=== PATIENT | female | born 1950 | race Caucasian/White ===

== ENCOUNTER 2022-08-21 10:26 | Outpatient (OUT) | payer MEDICARE, OTHER, SELFPAY ==
--- NOTE | 2022-08-21 10:30 | MM_ITS ---
Patient: SINA VALENCIA Exam Date: 08/21/2022 : 1950 Gender:F Ordering : DR. JEAN HAIR . Admission #: [id number] Family : Order #: [id number] CLICK HERE TO VIEW EXAM RADIOLOGY REPORT PROCEDURE: MM TOMOSYNTHESIS SCREENING BI COMPARISON: MG MAMM SCREEN 3D SONY CAD, 08/17/2020. MG MAMM SCREEN 3D SONY CAD, 08/19/2021. INDICATIONS: Screening mammogram Z12.31 Calculator Name NCI Breast Cancer Risk Assessment Tool 5 Year Breast Cancer Risk 1.90% Lifetime Breast Cancer Risk 5.40% Personal Breast Cancer No Personal Ovarian Cancer No Treatments None Family Cancers Father with pancreatic cancer at age 81; Grandmother-maternal with colon cancer at age 70. LOCATION: [facility] BREAST COMPOSITION: Heterogeneously dense,which may obscure small masses. FINDINGS: DIAGNOSTIC CATEGORY 2--BENIGN FINDING. NO CHANGE FROM COMPARISON. Scattered benign-appearing calcifications are present. Scattered benign-appearing lymph nodes are present. RIGHT BREAST: No significant suspicious finding. Clusters of stable calcifications upper outer quadrant LEFT BREAST: No significant suspicious finding. Stable scab microcalcifications upper outer quadrant with unchanged micro clip marker RECOMMENDATIONS: ROUTINE MAMMOGRAM AND CLINICAL EVALUATION IN 12 MONTHS. PLEASE NOTE: A NORMAL MAMMOGRAM DOES NOT EXCLUDE THE POSSIBILITY OF BREAST CANCER. A CLINICALLY SUSPICIOUS PALPABLE LUMP SHOULD BE BIOPSIED. Dictated by: Soto Perry MD on 08/21/2022 at 12:06 Approved by: Soto Perry MD on 08/21/2022 at 12:08
== END 2022-08-21 10:27 ==
LOC: MAMMO 10:27
PROVIDERS: PCP Family Medicine; Visit Provider Family Medicine
DX: Z12.31 Encounter for screening mammogram for malignant neoplasm of breast (principal); Z80.1 Family history of malignant neoplasm of trachea, bronchus and lung; Z80.0 Family history of malignant neoplasm of digestive organs
CPT/HCPCS: 77063; 77067

== ENCOUNTER 2022-11-13 11:55 | Outpatient (OUT) | payer MEDICARE, OTHER, SELFPAY ==
--- NOTE | 2022-11-13 13:08 | PM.CN ---
Consult Note: HPI Data of Consult Patient: new to practice Consult date: 11/13/22 Requesting Physician: Alice Ryan MD Primary Care Provider: JEAN HAIR Consult Narrative Reason for consult: low back pain Narrative: Rosi 72yof who presents for evaluation. Increasing axial low back pain that is worsened with ambulation. Previously underwent lumbar epidural steroid injections at outside pain clinic, which provided relief of radiating pain. Imaging reviewed, which is significant for multilevel moderate facet arthropathy. Engages in PT and completed >6 weeks of provider directed home exercise program, without much relief. Tried gabapentin and muscle relaxants, with limited relief. Denies loss of bowel or bladder control. cc:: CC: Alice Ryan MD Review of Systems ROS Status of ROS 10 or more systems reviewed and unremarkable except as noted in history and below Exam Constitutional Common normals: no apparent distress, oriented x3 and healthy appearing Respiratory Common normals: normal respiratory effort Effort & inspection: able to speak in complete sentences Back & Pelvis Other: Tenderness to palpation in low back and paraspinal musculature. Pain elicited with flexion, extension, lateral rotation. Facet loading maneuvers positive bilaterally. Coordination intact. Gait mildly antalgic. Extremity Common normals: normal to inspection Neuro Common normals: oriented x3, CN's II-XII intact bilaterally and no focal motor deficits Psych Common normals: mental status grossly normal and cooperative Assessment and Plan Assessment and Plan (1) Lumbar stenosis with neurogenic claudication: (2) Lumbar spondylosis: Plan Rosi 72yof who presents for evaluation. Failed >6 weeks of conservative management, as noted above. Imaging reviewed, as noted above. Given symptoms and imaging findings, prudent to attempt diagnostic bilateral L4-5, L5-S1 medial branch blocks under fluoroscopic guidance with intention of proceeding to radiofrequency ablation. She is in agreement. Medications reviewed, no changes. Follow up after procedure.
== END 2022-11-13 11:56 | disposition home or self-care (01) ==
LOC: PM 11:55
PROVIDERS: PCP Family Medicine; Visit Provider Anesthesiology
DX: M47.816 Spondylosis without myelopathy or radiculopathy, lumbar region (principal); M48.062 Spinal stenosis, lumbar region with neurogenic claudication
CPT/HCPCS: G0463

== ENCOUNTER 2022-11-27 08:39 | Day surgery (SDC) | payer MEDICARE, OTHER, SELFPAY ==
[2022-11-27 09:14] VITALS: BP 149/74; PULSE 69; RESP 18; TEMP 36.3; O2SAT 99
[2022-11-27] MEDS: LIDOCAINE HCL 2% PF 100 MG/5 ML VIAL INJ (10:15)
[2022-11-27] MEDS: BUPIVACAINE HCL 0.25% PF 25 MG/10 ML VIAL INJ (10:15)
[2022-11-27 10:16] VITALS: BP 138/84; PULSE 70; RESP 18; O2SAT 97
[2022-11-27] MEDS: TRIAMCINOLONE ACETONIDE 40 MG/ML VIAL INJ (10:16)
--- NOTE | 2022-11-27 10:17 | W.PM.PROCNOT ---
Date of procedure: 11/27/22 Pre-op diagnosis: Lumbar spondylosis Post-op diagnosis: same as pre-op Procedure: Procedure: Bilateral L4-5, L5-S1 medial branch block Diagnosis: Lumbar spondylosis The patient was seen and examined in the preoperative holding area.? An informed consent was obtained and placed on the chart.? The patient was brought to the medical procedure unit and placed in the prone position.? A timeout was completed verifying correct patient, procedure site, positioning, plan, and special equipment.? Using aseptic technique, the needle was placed at left L4. Under direct fluoroscopic visualization a Quincke-tipped spinal needle was advanced to the junction of the superior articulating process with the transverse process at the designated medial branch segment.? Preceded by negative aspiration, the above-mentioned injectate was placed in 1 mL aliquots.? The procedure was repeated at left L5, S1.? The needle was removed and insertion site was covered. The same procedure, at the same levels, was completed on the right side. The patient was taken to the postprocedural recovery area and monitored for an appropriate length of time before found suitable for discharge in the company of a responsible adult. Anesthesia: Local Surgeon: Alice Ryan Pathology: none sent Condition: stable Disposition: no change
[2022-11-27 10:18] VITALS: BP 212/94; PULSE 77; RESP 18; O2SAT 96
== END 2022-11-27 10:21 | disposition home or self-care (01) ==
PROVIDERS: PCP Family Medicine; Visit Provider Anesthesiology
DX: M47.816 Spondylosis without myelopathy or radiculopathy, lumbar region (principal)
CPT/HCPCS: 64493; 64494

== ENCOUNTER 2022-12-13 09:43 | Outpatient (OUT) | payer MEDICARE, OTHER, SELFPAY ==
--- NOTE | 2022-12-13 09:49 | P.CN_ITS ---
Consult Note: HPI Data of Consult Patient: known to practice within the last 3 years Requesting Physician: Marian Cornelius NP Primary Care Provider: JEAN HAIR Consult Narrative Reason for consult: f/u Narrative: Misty yeung pleasant 72 year old female presents for evaluation and management of chronic low back pain. Pt recently underwent bilateral L4-5 L5-S1 MBB #1 with >80% pain relief and functional improvement immediately following and hours after the procedure. Patient would like to discuss proceeding with bilateral L4-5 L5-S1 MBB #2 working towards thermal RFA. Today rating pain 2- 3/10, pain worse with standing walking activity and weather changes. cc:: CC: Marian Cornelius NP Review of Systems ROS Status of ROS 10 or more systems reviewed and unremarkable except as noted in history and below Musculoskeletal Reports: back pain PFSH PFS Medical History (Updated 11/23/22 @ 09:16 by Francia Carranza) Acid reflux ?K21.9 - Gastro-esophageal reflux disease without esophagitis (ICD-10) HAFSA positive ?R76.8 - Other specified abnormal immunological findings in serum (ICD-10) Asthma ?J45.909 - Unspecified asthma, uncomplicated (ICD-10) Basal cell carcinoma ?C44.91 - Basal cell carcinoma of skin, unspecified (ICD-10) Blindness ?H54.7 - Unspecified visual loss (ICD-10) Family history of alcohol abuse ?Z81.1 - Family history of alcohol abuse and dependence (ICD-10) Family history of drug abuse ?Z81.3 - Family history of other psychoactive substance abuse and dependence (ICD-10) Heartburn ?R12 - Heartburn (ICD-10) Hiatal hernia ?K44.9 - Diaphragmatic hernia without obstruction or gangrene (ICD-10) High cholesterol ?E78.00 - Pure hypercholesterolemia, unspecified (ICD-10) Hypertension ?I10 - Essential (primary) hypertension (ICD-10) Hypothyroid ?E03.9 - Hypothyroidism, unspecified (ICD-10) MGUS (monoclonal gammopathy of unknown significance) ?D47.2 - Monoclonal gammopathy (ICD-10) Obesity ?E66.9 - Obesity, unspecified (ICD-10) Osteoarthritis ?M19.90 - Unspecified osteoarthritis, unspecified site (ICD-10) Osteopenia ?M85.80 - Other specified disorders of bone density and structure, unspecified site (ICD-10) 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 and other parts of nervous system (ICD-10) Renal insufficiency ?N28.9 - Disorder of kidney and ureter, unspecified (ICD-10) Sjogren's disease ?M35.00 - Sjogren syndrome, unspecified (ICD-10) SVT (supraventricular tachycardia) ?I47.1 - Supraventricular tachycardia (ICD-10) Syncopal episodes ?R55 - Syncope and collapse (ICD-10) Surgical History H/O breast biopsy ?Z98.890 - Other specified postprocedural states (ICD-10) H/O parathyroidectomy ?E89.2 - Postprocedural hypoparathyroidism (ICD-10) H/O prior ablation treatment ?Z98.890 - Other specified postprocedural states (ICD-10) H/O thumb surgery ?Z98.890 - Other specified postprocedural states (ICD-10) H/O thyroidectomy ?E89.0 - Postprocedural hypothyroidism (ICD-10) H/O wrist surgery ?Z98.890 - Other specified postprocedural states (ICD-10) H/O wrist surgery ?Z98.890 - Other specified postprocedural states (ICD-10) History of hysterectomy ?Z90.710 - Acquired absence of both cervix and uterus (ICD-10) History of phacoemulsification of cataract of left eye with intraocular lens implantation ?Z98.42 - Cataract extraction status, left eye (ICD-10) ?Z96.1 - Presence of intraocular lens (ICD-10) Meds Home Medications and Allergies Home Medications Medication Instructions Recorded Confirmed Type acetaminophen 650 mg 650 mg PO Q12H PRN pain 11/23/22 11/27/22 History tablet,extended release (8 Hour Pain Reliever) atorvastatin 10 mg tablet 10 mg PO QDAY 11/23/22 11/27/22 History cholecalciferol (vitamin D3) 50 11/23/22 History mcg (2,000 unit) capsule fluocinonide 0.05 % topical cream applic topical 11/23/22 History furosemide 20 mg tablet 20 mg PO QDAY 11/23/22 11/27/22 History hydroxychloroquine 200 mg tablet mg PO 11/23/22 History ibandronate 150 mg tablet mg PO 11/23/22 History ketoconazole 2 % topical cream applic topical 11/23/22 History levothyroxine 50 mcg tablet 50 mcg PO QDAY 11/23/22 11/27/22 History lisinopril 10 mg tablet 10 mg PO QDAY 11/23/22 11/27/22 History metronidazole 0.75 % topical cream applic topical 11/23/22 History naproxen sodium 220 mg capsule 220 mg PO BID PRN pain 11/23/22 11/27/22 History (Aleve) potassium chloride 10 mEq 10 meq PO QDAY 11/23/22 11/27/22 History tablet,extended release Allergies Allergy/AdvReac Type Severity Reaction Status Date / Time acetaminophen [From Percocet] Allergy Mild Verified 11/27/22 09:12 gabapentin Allergy Mild Verified 11/27/22 09:12 meperidine [From Demerol] Allergy Mild Nausea Verified 11/27/22 09:12 morphine Allergy Mild Verified 11/27/22 09:12 oxycodone [From Percocet] Allergy Mild Verified 11/27/22 09:12 Sulfa (Sulfonamide Allergy Mild Hives Verified 11/27/22 09:12 Antibiotics) sulfamethoxazole Allergy Mild Verified 11/27/22 09:12 [From Bactrim] trimethoprim [From Bactrim] Allergy Mild Verified 11/27/22 09:12 Exam Constitutional Documenting provider has reviewed patient's vital signs: yes Common normals: no apparent distress, oriented x3, healthy appearing, alert and well nourished General appearance: cooperative HENTN Common normals: normocephalic, hearing grossly normal bilaterally and moist oral mucous membranes Head and scalp: normocephalic Eye Common normals: PERRL Pupil: PERRL Neck & C-Spine Common normals: full ROM General: normal visual inspection Chest Common normals: inspection of chest normal Respiratory Common normals: normal respiratory effort, no retractions and no use of accessory muscles Back & Pelvis Lumbar spine/lower back: ROM limited, pain with ROM, paraspinal muscle tenderness and straight leg raise negative bilaterally Other: predominately axial low back pain pain over L4-5 L5-S1 facets positive facet loading bilaterally no radiculopathy Extremity Common normals: normal to inspection and full ROM Neuro Common normals: oriented x3, CN's II-XII intact bilaterally, moves all extremities, no focal motor deficits, no sensory deficits noted and deep tendon reflexes 2+ bilaterally Sensorium/orientation: alert Gait (neuro): antalgic and assistive device used walker Motor exam: strength 5/5 throughout and no movement abnormalities noted Psych Common normals: mental status grossly normal, thought process normal, cooperative, affect normal, speech normal and activity/motor behavior normal Speech: normal speech Thought process: normal thought process Results Additional Findings Additional findings: I have checked an [place]AR[place] report on this patient today and there are no aberrancies noted in the prescribing history.?? A drug screen was completed and reviewed within the last year, and if there has not been a drug screen completed we ordered one today to monitor higher risk, state monitored pain medication use. As part of providing excellent, safe, comprehensive care, the following was completed at our patient's visit: 1. A medication reconciliation and review to ensure accurate knowledge of current/active medications, including asking our patients to inform us about any [id number] medications or herbal remedies/nutritional supplements/alternative remedies. 2. A review to specifically ensure our patients have had annual screening for: elevated body mass index (BMI), tobacco use, screening for depression, and screening for unhealthy alcohol use. When screening is concerning, patients are provided with education and the specific recommendation to discuss the concerning health issue and treatment options with their primary care provider. Assessment and Plan Assessment and Plan (1) Lumbar spondylosis: Assessment and Plan: The patient has had over 3 months of moderate to severe low back pain with functional impairment and inadequate response to conservative care including NSAIDS (unless there are contraindication such as concurrent blood thinners), multiple oral or topical pain medications, and home exercise program/physical therapy.? Patient has completed >6 weeks of guided home exercise program and/or formal physical therapy program without relief of their symptoms.? I have reviewed the imaging of the lumbar spine and no red flags were identified.? The imaging reveals radiographic findings consistent with lumbar spondylosis and facet arthropathy The Oswestry Disability Index was completed, and the patient scored a 16%.? The patient noted the following:??mild to moderate pain, pain with lifting heavy objects, pain prevents her from walking more than 1 mile, pain with social life and travel Proceed with bilateral L4-5 L5-S1 MBB #2, bilatearl L4-5 L5-S1 MBB #1 provided >80% pain relief and functional improvement immediately following and hours after procedure We discussed the risks and benefits of the procedure with the patient, and we are NOT planning on using sedation as outlined in the guidelines from Medicare unless there is a documented reason that sedation would be strongly recommended.?? The procedure will be completed with fluoroscopic guidance.? Plan proceed with bilateral L4-5 L5-S1 MBB #2 under fluoroscopy working towards thermal RFA continue HEP continue current medications f/u 1 week after injection
== END 2022-12-13 09:44 | disposition home or self-care (01) ==
LOC: PM 09:43
PROVIDERS: PCP Family Medicine; Visit Provider Nurse Practitioner
DX: M47.816 Spondylosis without myelopathy or radiculopathy, lumbar region (principal)
CPT/HCPCS: G0463

== ENCOUNTER 2022-12-21 09:36 | Outpatient (OUT) | payer MEDICARE, OTHER, SELFPAY ==
[2022-12-21 10:23] LABS: Estimated GFR (African America >60 (>=60); Estimated GFR (Non-African Ame >60 (>=60)
[2022-12-21 10:24] LABS: C Reactive Protein <0.2 mg/dL (<=1.0)
[2022-12-21 10:25] LABS: Basophils Percent Auto 0.7 % (0.2-2.0); Eosinophils Absolute Auto 0.1 10^3/uL (0.0-0.7); Eosinophils Percent Auto 1.6 % (0.9-7.0); Hematocrit 40.1 % (36.0-48.0); Hemoglobin 12.8 g/dL (12.0-16.0); Immature Granulocytes Abs Auto 0.01 10^3/uL (0.00-0.03); Immature Granulocytes Pct Auto 0.2 % (0.0-0.5); Lymphocytes Absolute Auto 1.1 10^3/uL (1.2-3.8); Lymphocytes Percent Auto 18.8 % (20.5-60.0); Mean Corpuscular HGB Conc 31.9 g/dL (29.9-35.2); Mean Corpuscular Hemoglobin 31.1 pg (26.7-34.0); Mean Corpuscular Volume 97.3 fL (81.0-99.0); Mean Platelet Volume 11.5 fL (9.5-13.5); Monocytes Absolute Auto 0.5 10^3/uL (0.3-0.8); Monocytes Percent Auto 8.2 % (1.7-12.0); Neutrophils Absolute Auto 3.9 10^3/uL (1.4-6.5); Neutrophils Percent Auto 70.5 % (43.0-75.0); Platelet Count 198 10^3/uL (150-450); Red Blood Count 4.12 10^6/uL (4.20-5.40); Red Cell Distribution Width 12.8 % (11.0-15.0); White Blood Count 5.6 10^3/uL (4.0-11.0)
[2022-12-21 10:55] LABS: Erythrocyte Sedimentation Rate 22 mm/hr (<=30)
[2022-12-21 11:02] LABS: Bilirubin Urine NEGATIVE (NEGATIVE); Blood Urine NEGATIVE (NEGATIVE); Clarity Urine CLEAR (CLEAR); Color Urine LT. YELLOW (YELLOW); Glucose Urine UA NEGATIVE (NEGATIVE); Ketones Urine NEGATIVE (NEGATIVE); Leukocyte Esterase Urine TRACE (NEGATIVE); Nitrite Urine NEGATIVE (NEGATIVE); Protein Urine NEGATIVE (NEG/TRACE); Specific Gravity Urine 1.025 (1.005-1.025); Urobilinogen Urine 0.2 EU/dL (0.2-1.0); pH Urine 5.5 (5.0-9.0)
[2022-12-21 11:17] LABS: Bacteria Urine TRACE #/HPF (NONE SEEN); Mucus Urine NONE SEEN (NONE SEEN); RBC Urine NONE SEEN #/HPF (0-2); Squamous Epithelial Cell Urine FEW #/LPF (NONE/RARE)
[2022-12-22 04:07] LABS: Complement C3, Serum 145 mg/dL (82-167); Complement C4, Serum 33 mg/dL (12-38)
== END 2022-12-21 09:37 | disposition home or self-care (01) ==
LOC: LAB 09:37
PROVIDERS: PCP Family Medicine; Visit Provider Internal Medicine Rheumatology
DX: M35.9 Systemic involvement of connective tissue, unspecified (principal); Z79.899 Other long term (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 therapy
CPT/HCPCS: 36415; 81001; 82565; 85025; 85652; 86140; 86160

== ENCOUNTER 2022-12-25 08:29 | Day surgery (SDC) | payer MEDICARE, OTHER, SELFPAY ==
[2022-12-25 08:45] VITALS: BP 156/80; PULSE 70; RESP 16; TEMP 36.4; O2SAT 98
[2022-12-25 09:29] VITALS: BP 160/81; PULSE 74; RESP 18; O2SAT 97
[2022-12-25] MEDS: BUPIVACAINE HCL 0.25% PF 25 MG/10 ML VIAL 8 ML INJ (09:31)
[2022-12-25] MEDS: LIDOCAINE HCL 2% PF 100 MG/5 ML VIAL INJ (09:31)
[2022-12-25] MEDS: TRIAMCINOLONE ACETONIDE 40 MG/ML VIAL INJ (09:31)
[2022-12-25 09:32] VITALS: BP 168/78; PULSE 76; RESP 18; O2SAT 96
--- NOTE | 2022-12-25 09:34 | W.PM.PROCNOT ---
Date of procedure: 12/25/22 Pre-op diagnosis: Lumbar spondylosis Post-op diagnosis: same as pre-op Procedure: Procedure: Bilateral L4-5, L5-S1 medial branch block Medications: Bupivacaine 0.25% 4cc The patient was seen and examined in the preoperative holding area.? An informed consent was obtained and placed on the chart.? The patient was brought to the medical procedure unit and placed in the prone position.? A timeout was completed verifying correct patient, procedure site, positioning, plan, and special equipment.? Using aseptic technique, the needle was placed at left L4. Under direct fluoroscopic visualization a Quincke-tipped spinal needle was advanced to the junction of the superior articulating process with the transverse process at the designated medial branch segment.? Preceded by negative aspiration, the above-mentioned injectate was placed in 1 mL aliquots.? The procedure was repeated at left L5, S1.? The needle was removed and insertion site was covered. The same procedure, at the same levels, was completed on the right side. The patient was taken to the postprocedural recovery area and monitored for an appropriate length of time before found suitable for discharge in the company of a responsible adult. Surgeon: Alice Ryan Pathology: none sent Condition: stable Disposition: no change
== END 2022-12-25 09:36 | disposition home or self-care (01) ==
PROVIDERS: PCP Family Medicine; Visit Provider Anesthesiology
DX: M47.816 Spondylosis without myelopathy or radiculopathy, lumbar region (principal)
CPT/HCPCS: 64493; 64494

== ENCOUNTER 2023-01-04 10:24 | Outpatient (OUT) | payer MEDICARE, OTHER, SELFPAY ==
--- NOTE | 2023-01-04 10:34 | PM.CN ---
Consult Note: HPI Data of Consult Patient: known to practice within the last 3 years Requesting Physician: Marian Cornelius NP Primary Care Provider: JEAN HAIR Consult Narrative Reason for consult: f/u Narrative: Misty yeung pleasant 72 year old female presents for evaluation and management of chronic low back pain. Pt recently underwent bilateral L4-5 L5-S1 MBB #2 with >80% pain relief and functional improvement immediately following and 4-5 days after the procedure. Patient would like to discuss proceeding with bilateral L4-5 L5-S1 thermal RFA. Today rating pain 2-3/10, pain worse with standing walking activity and weather changes. cc:: CC: Marian Cornelius NP Review of Systems ROS Status of ROS 10 or more systems reviewed and unremarkable except as noted in history and below Musculoskeletal Reports: back pain PFSH PFSH Medical History Acid reflux ?K21.9 - Gastro-esophageal reflux disease without esophagitis (ICD-10) HAFSA positive ?R76.8 - Other specified abnormal immunological findings in serum (ICD-10) Asthma ?J45.909 - Unspecified asthma, uncomplicated (ICD-10) Basal cell carcinoma ?C44.91 - Basal cell carcinoma of skin, unspecified (ICD-10) Blindness ?H54.7 - Unspecified visual loss (ICD-10) Family history of alcohol abuse ?Z81.1 - Family history of alcohol abuse and dependence (ICD-10) Family history of drug abuse ?Z81.3 - Family history of other psychoactive substance abuse and dependence (ICD-10) Heartburn ?R12 - Heartburn (ICD-10) Hiatal hernia ?K44.9 - Diaphragmatic hernia without obstruction or gangrene (ICD-10) High cholesterol ?E78.00 - Pure hypercholesterolemia, unspecified (ICD-10) Hypertension ?I10 - Essential (primary) hypertension (ICD-10) Hypothyroid ?E03.9 - Hypothyroidism, unspecified (ICD-10) MGUS (monoclonal gammopathy of unknown significance) ?D47.2 - Monoclonal gammopathy (ICD-10) Obesity ?E66.9 - Obesity, unspecified (ICD-10) Osteoarthritis ?M19.90 - Unspecified osteoarthritis, unspecified site (ICD-10) Osteopenia ?M85.80 - Other specified disorders of bone density and structure, unspecified site (ICD-10) 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 and other parts of nervous system (ICD-10) Renal insufficiency ?N28.9 - Disorder of kidney and ureter, unspecified (ICD-10) Sjogren's disease ?M35.00 - Sjogren syndrome, unspecified (ICD-10) SVT (supraventricular tachycardia) ?I47.1 - Supraventricular tachycardia (ICD-10) Syncopal episodes ?R55 - Syncope and collapse (ICD-10) Surgical History H/O breast biopsy ?Z98.890 - Other specified postprocedural states (ICD-10) H/O parathyroidectomy ?E89.2 - Postprocedural hypoparathyroidism (ICD-10) H/O prior ablation treatment ?Z98.890 - Other specified postprocedural states (ICD-10) H/O thumb surgery ?Z98.890 - Other specified postprocedural states (ICD-10) H/O thyroidectomy ?E89.0 - Postprocedural hypothyroidism (ICD-10) H/O wrist surgery ?Z98.890 - Other specified postprocedural states (ICD-10) H/O wrist surgery ?Z98.890 - Other specified postprocedural states (ICD-10) History of hysterectomy ?Z90.710 - Acquired absence of both cervix and uterus (ICD-10) History of phacoemulsification of cataract of left eye with intraocular lens implantation ?Z98.42 - Cataract extraction status, left eye (ICD-10) ?Z96.1 - Presence of intraocular lens (ICD-10) Meds Home Medications and Allergies Home Medications Medication Instructions Recorded Confirmed Type acetaminophen 650 mg 650 mg PO Q12H PRN pain 11/23/22 12/25/22 History tablet,extended release (8 Hour Pain Reliever) atorvastatin 10 mg tablet 10 mg PO QDAY 11/23/22 12/25/22 History cholecalciferol (vitamin D3) 50 11/23/22 History mcg (2,000 unit) capsule fluocinonide 0.05 % topical cream applic topical 11/23/22 History furosemide 20 mg tablet 20 mg PO QDAY 11/23/22 12/25/22 History hydroxychloroquine 200 mg tablet mg PO 11/23/22 History ibandronate 150 mg tablet mg PO 11/23/22 History ketoconazole 2 % topical cream applic topical 11/23/22 History levothyroxine 50 mcg tablet 50 mcg PO QDAY 11/23/22 12/25/22 History lisinopril 10 mg tablet 10 mg PO QDAY 11/23/22 12/25/22 History metronidazole 0.75 % topical cream applic topical 11/23/22 History naproxen sodium 220 mg capsule 220 mg PO BID PRN pain 11/23/22 12/25/22 History (Aleve) potassium chloride 10 mEq 10 meq PO QDAY 11/23/22 12/25/22 History tablet,extended release Allergies Allergy/AdvReac Type Severity Reaction Status Date / Time acetaminophen [From Percocet] Allergy Mild Verified 12/25/22 08:56 gabapentin Allergy Mild Verified 12/25/22 08:56 meperidine [From Demerol] Allergy Mild Nausea Verified 12/25/22 08:56 morphine Allergy Mild Verified 12/25/22 08:56 oxycodone [From Percocet] Allergy Mild Verified 12/25/22 08:56 Sulfa (Sulfonamide Allergy Mild Hives Verified 12/25/22 08:56 Antibiotics) sulfamethoxazole Allergy Mild Verified 12/25/22 08:56 [From Bactrim] trimethoprim [From Bactrim] Allergy Mild Verified 12/25/22 08:56 Exam Constitutional Documenting provider has reviewed patient's vital signs: yes Common normals: no apparent distress, oriented x3, healthy appearing, alert and well nourished General appearance: cooperative [facility] Common normals: normocephalic, hearing grossly normal bilaterally and moist oral mucous membranes Head and scalp: normocephalic Eye Common normals: PERRL Pupil: PERRL Neck & C-Spine Common normals: full ROM General: normal visual inspection Chest Common normals: inspection of chest normal Respiratory Common normals: normal respiratory effort, no retractions and no use of accessory muscles Back & Pelvis Lumbar spine/lower back: ROM limited, pain with ROM, paraspinal muscle tenderness and straight leg raise negative bilaterally Other: predominately axial low back pain pain over L4-5 L5-S1 facets positive facet loading bilaterally no radiculopathy Extremity Common normals: normal to inspection and full ROM Neuro Common normals: oriented x3, CN's II-XII intact bilaterally, moves all extremities, no focal motor deficits, no sensory deficits noted and deep tendon reflexes 2+ bilaterally Sensorium/orientation: alert Gait (neuro): antalgic and assistive device used walker Motor exam: strength 5/5 throughout and no movement abnormalities noted Psych Common normals: mental status grossly normal, thought process normal, cooperative, affect normal, speech normal and activity/motor behavior normal Speech: normal speech Thought process: normal thought process Results Additional Findings Additional findings: I have checked an [place]AR[place] report on this patient today and there are no aberrancies noted in the prescribing history.?? A drug screen was completed and reviewed within the last year, and if there has not been a drug screen completed we ordered one today to monitor higher risk, state monitored pain medication use. As part of providing excellent, safe, comprehensive care, the following was completed at our patient's visit: 1. A medication reconciliation and review to ensure accurate knowledge of current/active medications, including asking our patients to inform us about any kumf-acy-oyyzzoe medications or herbal remedies/nutritional supplements/alternative remedies. 2. A review to specifically ensure our patients have had annual screening for: elevated body mass index (BMI), tobacco use, screening for depression, and screening for unhealthy alcohol use. When screening is concerning, patients are provided with education and the specific recommendation to discuss the concerning health issue and treatment options with their primary care provider. Assessment and Plan Assessment and Plan (1) Lumbar spondylosis: Assessment and Plan: The patient has had over 3 months of moderate to severe low back pain with functional impairment and inadequate response to conservative care including NSAIDS (unless there are contraindication such as concurrent blood thinners), multiple oral or topical pain medications, and home exercise program/physical therapy.? Patient has completed >6 weeks of guided home exercise program and/or formal physical therapy program without relief of their symptoms.? I have reviewed the imaging of the lumbar spine and no red flags were identified.? The imaging reveals radiographic findings consistent with lumbar spondylosis and facet arthropathy The Oswestry Disability Index was completed, and the patient scored a The patient noted the following:?? Proceed with bilateral L4-5 L5-S1 MBB #2, bilatearl L4-5 L5-S1 MBB #1 and #2 provided >80% pain relief and functional improvement immediately following and hours after procedure We discussed the risks and benefits of the procedure with the patient, and we are NOT planning on using sedation as outlined in the guidelines from Medicare unless there is a documented reason that sedation would be strongly recommended.?? The procedure will be completed with fluoroscopic guidance.? Plan proceed with bilateral L4-5 L5-S1 thermal RFA under fluoroscopy continue HEP continue current medications f/u 1 month after procedure
== END 2023-01-04 10:25 | disposition home or self-care (01) ==
LOC: PM 10:24
PROVIDERS: PCP Family Medicine; Visit Provider Nurse Practitioner
DX: M47.816 Spondylosis without myelopathy or radiculopathy, lumbar region (principal)
CPT/HCPCS: G0463

== ENCOUNTER 2023-01-29 07:02 | Day surgery (SDC) | payer MEDICARE, OTHER, SELFPAY ==
[2023-01-29 07:44] VITALS: BP 150/75; PULSE 67; RESP 16; TEMP 36.3; O2SAT 97
[2023-01-29 07:54] VITALS: BP 142/73; PULSE 76; RESP 18; O2SAT 96
[2023-01-29 08:06] VITALS: BP 166/77; PULSE 73; RESP 18; O2SAT 97
--- NOTE | 2023-01-29 08:07 | P.ON_ITS ---
Date of procedure: 01/29/23 Pre-op diagnosis: Lumbar spondylosis Post-op diagnosis: same as pre-op Procedure: Procedure: Bilateral L4-5, L5-S1 radiofrequency ablation Medications: Bupivacaine 0.5% 6cc, lidocaine 2% 5cc, kenalog 80mg The patient was seen and examined in the preoperative holding area.? The site was marked.? Written informed consent was obtained and placed on the chart.? The patient was brought to the medical procedure unit and placed in the prone position.? A timeout was completed verifying correct patient, procedure, positioning, and special requirements.? The skin overlying the target points, the designated medial branch, were prepped and draped in the usual sterile fashion.? The target point was achieved with a 20-gauge 15 cm with a 10 mm curved active tip radiofrequency cannula under direct fluoroscopic visualization.? The needle was inserted at level L4 on the right side. Needle tip position was confirmed with lateral fluoroscopic position.? Motor stimulation was carried out at 2 Hz up to 5 volts with the absence of extremity activity.? This was repeated at level L5, S1 on right side.?? Sensory stimulation was carried out.? Concordant pain was realized at the above- mentioned sites.? Then radiofrequency lesioning was carried out times 90 seconds at 80 degrees times 2 lesions at each level.? The radiofrequency probe was removed prior to cannula removal.? The above-mentioned injectate was placed in 1 mL increments.? The needle was removed. The same procedure, with the same steps, was then completed on the left side at the same levels. Insertion sites were covered.? The patient was taken to the postoperative recovery area and monitored for an appropriate length of time before being found suitable for discharge in the company of a responsible adult. Surgeon: Alice Ryan Pathology: none sent Condition: stable Disposition: no change
[2023-01-29] MEDS: TRIAMCINOLONE ACETONIDE 40 MG/ML VIAL 80 MG INJ (08:08)
[2023-01-29] MEDS: LIDOCAINE HCL 2% 400 MG/20 ML MDV 18 ML INJ (08:08)
[2023-01-29] MEDS: BUPIVACAINE HCL 0.25% PF 25 MG/10 ML VIAL 4 ML INJ (08:08)
== END 2023-01-29 08:15 | disposition home or self-care (01) ==
PROVIDERS: PCP Family Medicine; Visit Provider Anesthesiology
DX: M47.816 Spondylosis without myelopathy or radiculopathy, lumbar region (principal)
CPT/HCPCS: 64635; 64636

== ENCOUNTER 2023-02-28 09:54 | Outpatient (OUT) | payer MEDICARE, OTHER, SELFPAY ==
--- NOTE | 2023-02-28 10:19 | PM.CN ---
Consult Note: HPI Data of Consult Patient: known to practice within the last 3 years Requesting Physician: Marian Cornelius NP Primary Care Provider: JEAN HAIR Consult Narrative Reason for consult: f/u Narrative: Misty yeung pleasant 72 year old female presents for evaluation and management of chronic low back pain. Pt recently underwent bilateral L4-5 L5-S1 facet thermal RFA with 80-90% ongoing relief. Patient notices more bilateral feet and shaffer numbness/tingling, today pain 2-3/10. Patient follows with neurology as well. cc:: CC: Marian Cornelius NP Review of Systems ROS Status of ROS 10 or more systems reviewed and unremarkable except as noted in history and below Musculoskeletal Reports: back pain PFSH PFSH Medical History Acid reflux ?K21.9 - Gastro-esophageal reflux disease without esophagitis (ICD-10) HAFSA positive ?R76.8 - Other specified abnormal immunological findings in serum (ICD-10) Asthma ?J45.909 - Unspecified asthma, uncomplicated (ICD-10) Basal cell carcinoma ?C44.91 - Basal cell carcinoma of skin, unspecified (ICD-10) Blindness ?H54.7 - Unspecified visual loss (ICD-10) Family history of alcohol abuse ?Z81.1 - Family history of alcohol abuse and dependence (ICD-10) Family history of drug abuse ?Z81.3 - Family history of other psychoactive substance abuse and dependence (ICD-10) Heartburn ?R12 - Heartburn (ICD-10) Hiatal hernia ?K44.9 - Diaphragmatic hernia without obstruction or gangrene (ICD-10) High cholesterol ?E78.00 - Pure hypercholesterolemia, unspecified (ICD-10) Hypertension ?I10 - Essential (primary) hypertension (ICD-10) Hypothyroid ?E03.9 - Hypothyroidism, unspecified (ICD-10) MGUS (monoclonal gammopathy of unknown significance) ?D47.2 - Monoclonal gammopathy (ICD-10) Obesity ?E66.9 - Obesity, unspecified (ICD-10) Osteoarthritis ?M19.90 - Unspecified osteoarthritis, unspecified site (ICD-10) Osteopenia ?M85.80 - Other specified disorders of bone density and structure, unspecified site (ICD-10) 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 and other parts of nervous system (ICD-10) Renal insufficiency ?N28.9 - Disorder of kidney and ureter, unspecified (ICD-10) Sjogren's disease ?M35.00 - Sjogren syndrome, unspecified (ICD-10) SVT (supraventricular tachycardia) ?I47.1 - Supraventricular tachycardia (ICD-10) Syncopal episodes ?R55 - Syncope and collapse (ICD-10) Surgical History H/O prior ablation treatment ?Z98.890 - Other specified postprocedural states (ICD-10) History of phacoemulsification of cataract of left eye with intraocular lens implantation ?Z98.42 - Cataract extraction status, left eye (ICD-10) ?Z96.1 - Presence of intraocular lens (ICD-10) H/O breast biopsy ?Z98.890 - Other specified postprocedural states (ICD-10) H/O thyroidectomy ?E89.0 - Postprocedural hypothyroidism (ICD-10) H/O parathyroidectomy ?E89.2 - Postprocedural hypoparathyroidism (ICD-10) H/O thumb surgery ?Z98.890 - Other specified postprocedural states (ICD-10) H/O wrist surgery ?Z98.890 - Other specified postprocedural states (ICD-10) H/O wrist surgery ?Z98.890 - Other specified postprocedural states (ICD-10) History of hysterectomy ?Z90.710 - Acquired absence of both cervix and uterus (ICD-10) Meds Home Medications and Allergies Home Medications Medication Instructions Recorded Confirmed Type acetaminophen 650 mg 650 mg PO Q12H PRN pain 11/23/22 01/29/23 History tablet,extended release (8 Hour Pain Reliever) atorvastatin 10 mg tablet 10 mg PO QDAY 11/23/22 01/29/23 History cholecalciferol (vitamin D3) 50 11/23/22 History mcg (2,000 unit) capsule fluocinonide 0.05 % topical cream applic topical 11/23/22 History furosemide 20 mg tablet 20 mg PO QDAY 11/23/22 01/29/23 History hydroxychloroquine 200 mg tablet mg PO 11/23/22 History ibandronate 150 mg tablet mg PO 11/23/22 History ketoconazole 2 % topical cream applic topical 11/23/22 History levothyroxine 50 mcg tablet 50 mcg PO QDAY 11/23/22 01/29/23 History lisinopril 10 mg tablet 10 mg PO QDAY 11/23/22 01/29/23 History metronidazole 0.75 % topical cream applic topical 11/23/22 History naproxen sodium 220 mg capsule 220 mg PO BID PRN pain 11/23/22 01/29/23 History (Aleve) potassium chloride 10 mEq 10 meq PO QDAY 11/23/22 01/29/23 History tablet,extended release Allergies Allergy/AdvReac Type Severity Reaction Status Date / Time acetaminophen [From Percocet] Allergy Mild Verified 01/29/23 07:37 gabapentin Allergy Mild Verified 01/29/23 07:37 meperidine [From Demerol] Allergy Mild Nausea Verified 01/29/23 07:37 morphine Allergy Mild Verified 01/29/23 07:37 oxycodone [From Percocet] Allergy Mild Verified 01/29/23 07:37 Sulfa (Sulfonamide Allergy Mild Hives Verified 01/29/23 07:37 Antibiotics) sulfamethoxazole Allergy Mild Verified 01/29/23 07:37 [From Bactrim] trimethoprim [From Bactrim] Allergy Mild Verified 01/29/23 07:37 Exam Constitutional Documenting provider has reviewed patient's vital signs: yes Common normals: no apparent distress, oriented x3, healthy appearing, alert and well nourished General appearance: cooperative [facility] Common normals: normocephalic, hearing grossly normal bilaterally and moist oral mucous membranes Head and scalp: normocephalic Eye Common normals: PERRL Pupil: PERRL Neck & C-Spine Common normals: full ROM General: normal visual inspection Chest Common normals: inspection of chest normal Respiratory Common normals: normal respiratory effort, no retractions and no use of accessory muscles Back & Pelvis Lumbar spine/lower back: ROM limited and straight leg raise negative bilaterally Other: negative facet loading no radiculopathy patient reports numbness tingling to bilateral feet, shins Extremity Common normals: normal to inspection and full ROM Neuro Common normals: oriented x3, CN's II-XII intact bilaterally, moves all extremities, no focal motor deficits, no sensory deficits noted and deep tendon reflexes 2+ bilaterally Sensorium/orientation: alert Gait (neuro): antalgic and assistive device used walker Motor exam: strength 5/5 throughout and no movement abnormalities noted Psych Common normals: mental status grossly normal, thought process normal, cooperative, affect normal, speech normal and activity/motor behavior normal Speech: normal speech Thought process: normal thought process Assessment and Plan Assessment and Plan (1) Lumbar spondylosis: (2) Lumbar stenosis with neurogenic claudication: (3) Lumbar radiculopathy: (4) Neuropathy: Plan start nortriptyline 10mg daily HS continue HEP as tolerated continue f/u with neurology as scheduled f/u 3 months
== END 2023-02-28 09:55 | disposition home or self-care (01) ==
LOC: PM 09:55
PROVIDERS: PCP Family Medicine; Visit Provider Nurse Practitioner
DX: M47.816 Spondylosis without myelopathy or radiculopathy, lumbar region (principal); M48.062 Spinal stenosis, lumbar region with neurogenic claudication; M54.16 Radiculopathy, lumbar region; G62.9 Polyneuropathy, unspecified
CPT/HCPCS: G0463

== ENCOUNTER 2023-05-30 12:39 | Outpatient (OUT) | payer MEDICARE, OTHER, SELFPAY ==
--- NOTE | 2023-05-30 12:37 | P.CN_ITS ---
Consult Note: HPI Data of Consult Patient: known to practice within the last 3 years Requesting Physician: Marian Cornelius NP Primary Care Provider: JEAN HAIR Consult Narrative Reason for consult: f/u Narrative: Misty yeung pleasant 72 year old female presents for evaluation and management of chronic low back pain. In January 2023, underwent bilateral L4-5 L5-S1 facet thermal RFA with 80-90% ongoing relief. Patient notices more bilateral feet and shaffer numbness/tingling, today pain 2-3/10. Patient follows with neurology as well. Pain today 2/10, increasing in burning of bilateral legs with activity and at night pain increases to 5/10. Did not start nortriptyline due to potential side effects, finds mild benefit from PRN tylenol. cc:: CC: Marian Cornelius NP Review of Systems ROS Status of ROS 10 or more systems reviewed and unremark able except as noted in history and below Musculoskeletal Reports: back pain PFSH PFSH Medical History Family history of drug abuse ?Z81.3 - Family history of other psychoactive substance abuse and dependence (ICD-10) Family history of alcohol abuse ?Z81.1 - Family history of alcohol abuse and dependence (ICD-10) HAFSA positive ?R76.8 - Other specified abnormal immunological findings in serum (ICD-10) Blindness ?H54.7 - Unspecified visual loss (ICD-10) Osteoarthritis ?M19.90 - Unspecified osteoarthritis, unspecified site (ICD-10) Basal cell carcinoma ?C44.91 - Basal cell carcinoma of skin, unspecified (ICD-10) Obesity ?E66.9 - Obesity, unspecified (ICD-10) Osteopenia ?M85.80 - Other specified disorders of bone density and structure, unspecified site (ICD-10) Heartburn ?R12 - Heartburn (ICD-10) Hiatal hernia ?K44.9 - Diaphragmatic hernia without obstruction or gangrene (ICD-10) Acid reflux ?K21.9 - Gastro-esophageal reflux disease without esophagitis (ICD-10) 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 and other parts of nervous system (ICD-10) Hypothyroid ?E03.9 - Hypothyroidism, unspecified (ICD-10) MGUS (monoclonal gammopathy of unknown significance) ?D47.2 - Monoclonal gammopathy (ICD-10) Sjogren's disease ?M35.00 - Sjogren syndrome, unspecified (ICD-10) Renal insufficiency ?N28.9 - Disorder of kidney and ureter, unspecified (ICD-10) Asthma ?J45.909 - Unspecified asthma, uncomplicated (ICD-10) Syncopal episodes ?R55 - Syncope and collapse (ICD-10) Hypertension ?I10 - Essential (primary) hypertension (ICD-10) High cholesterol ?E78.00 - Pure hypercholesterolemia, unspecified (ICD-10) SVT (supraventricular tachycardia) ?I47.1 - Supraventricular tachycardia (ICD-10) Surgical History H/O prior ablation treatment ?Z98.890 - Other specified postprocedural states (ICD-10) History of phacoemulsification of cataract of left eye with intraocular lens implantation ?Z98.42 - Cataract extraction status, left eye (ICD-10) ?Z96.1 - Presence of intraocular lens (ICD-10) H/O breast biopsy ?Z98.890 - Other specified postprocedural states (ICD-10) H/O thyroidectomy ?E89.0 - Postprocedural hypothyroidism (ICD-10) H/O parathyroidectomy ?E89.2 - Postprocedural hypoparathyroidism (ICD-10) H/O thumb surgery ?Z98.890 - Other specified postprocedural states (ICD-10) H/O wrist surgery ?Z98.890 - Other specified postprocedural states (ICD-10) H/O wrist surgery ?Z98.890 - Other specified postprocedural states (ICD-10) History of hysterectomy ?Z90.710 - Acquired absence of both cervix and uterus (ICD-10) Meds Home Medications and Allergies Home Medications ?Medication ?Instructions ?Recorded ?Confirmed ?Type acetaminophen 650 mg 650 mg PO Q12H PRN pain 11/23/22 01/29/23 History tablet,extended release (8 Hour Pain Reliever) atorvastatin 10 mg tablet 10 mg PO QDAY 11/23/22 01/29/23 History cholecalciferol (vitamin D3) 50 11/23/22 History mcg (2,000 unit) capsule fluocinonide 0.05 % topical cream applic topical 11/23/22 History furosemide 20 mg tablet 20 mg PO QDAY 11/23/22 01/29/23 History hydroxychloroquine 200 mg tablet mg PO 11/23/22 History ibandronate 150 mg tablet mg PO 11/23/22 History ketoconazole 2 % topical cream applic topical 11/23/22 History levothyroxine 50 mcg tablet 50 mcg PO QDAY 11/23/22 01/29/23 History lisinopril 10 mg tablet 10 mg PO QDAY 11/23/22 01/29/23 History metronidazole 0.75 % topical cream applic topical 11/23/22 History naproxen sodium 220 mg capsule 220 mg PO BID PRN pain 11/23/22 01/29/23 History (Aleve) potassium chloride 10 mEq 10 meq PO QDAY 11/23/22 01/29/23 History tablet,extended release Allergies Allergy/AdvReac Type Severity Reaction Status Date / Time acetaminophen [From Percocet] Allergy Mild Verified 01/29/23 07:37 gabapentin Allergy Mild Verified 01/29/23 07:37 meperidine [From Demerol] Allergy Mild Nausea Verified 01/29/23 07:37 morphine Allergy Mild Verified 01/29/23 07:37 oxycodone [From Percocet] Allergy Mild Verified 01/29/23 07:37 Sulfa (Sulfonamide Allergy Mild Hives Verified 01/29/23 07:37 Antibiotics) sulfamethoxazole Allergy Mild Verified 01/29/23 07:37 [From Bactrim] trimethoprim [From Bactrim] Allergy Mild Verified 01/29/23 07:37 Exam Constitutional Documenting provider has reviewed patient's vital signs: yes Common normals: no apparent distress, oriented x3, healthy appearing, alert and well nourished General appearance: cooperative [facility] Common normals: normocephalic, hearing grossly normal bilaterally and moist oral mucous membranes Head and scalp: normocephalic Eye Common normals: PERRL Pupil: PERRL Neck & C-Spine Common normals: full ROM General: normal visual inspection Chest Common normals: inspection of chest normal Respiratory Common normals: normal respiratory effort, no retractions and no use of accessory muscles Back & Pelvis Lumbar spine/lower back: normal to inspection, lumbar ROM normal and straight leg raise negative bilaterally Other: negative facet loading no radiculopathy patient reports numbness tingling to bilateral feet, shins. sensation intact BLE Extremity Common normals: normal to inspection and full ROM Neuro Common normals: oriented x3, CN's II-XII intact bilaterally, moves all extremities, no focal motor deficits, no sensory deficits noted and deep tendon reflexes 2+ bilaterally Sensorium/orientation: alert Gait (neuro): antalgic and assistive device used walker Motor exam: strength 5/5 throughout and no movement abnormalities noted Psych Common normals: mental status grossly normal, thought process normal, cooperative, affect normal, speech normal and activity/motor behavior normal Speech: normal speech Thought process: normal thought process Results Additional Findings Additional findings: If on a controlled substance or opioids, I have checked an [place] report on this patient and there are no aberrancies noted in the prescribing history.??If on a controlled substance or opioid a drug screen was completed and reviewed within the last year, and if there has not been a drug screen completed we ordered one today to monitor higher risk, state monitored pain medication use. As part of providing excellent, safe, comprehensive care, the following was completed at our patient's visit: 1. A medication reconciliation and review to ensure accurate knowledge of current/active medications, including asking our patients to inform us about any [id number] medications or herbal remedies/nutritional supplements/alternative remedies. 2. A review to specifically ensure our patients have had annual screening for screening for depression, screening for tobacco use, and screening for unhealthy alcohol use. For concerning screenings had a discussion with the patient, provided patient education, and recommended follow-up with primary care provider when appropriate. If patient noted with a risk of falling, they received education on strength, gait, and balance training to prevent future risk of falling. Assessment and Plan Assessment and Plan (1) Lumbar spondylosis: (2) Lumbar stenosis with neurogenic claudication: (3) Lumbar radiculopathy: Plan proposed bilateral L3-4 TFESI followed by bilateral L4-5 TFESI 2 weeks apart for lumbar radiculopathy/lumbar stenosis with NC. defer at this time, pt will call if needed continue HEP as tolerated f/u as needed
--- OUTSIDE RECORDS SUMMARY | 2023-05-30 12:51 | XMS_ITS | CCD ---
Author Organization [facility] Care Team Providers Care Inspector Cold Working Name Role Phone KENNEDY ., DR CAROL Vyas Primary Care Unavailable KELLYLEIGH POWELL Admitting Unavailable KELLYLEIGH POWELL Attending Unavailable KALE, DR TATIANA Tracy Admitting Unavailable KENNEDY ., DR CAROL Vyas Primary Care Unavailable KALE, DR TATIANA Tracy Attending Unavailable KALE, DR TATIANA Tracy Consulting Unavailable KENNEDY ., DR CAROL Vyas Primary Care Unavailable ANDREWADANasreen, DR SINGH Consulting Unavailable ANDREWADANasreen, DR SINGH Admitting Unavailable ANDREWADANasreen, DR SINGH Attending Unavailable KENNEDY ., DR CAROL Vyas Admitting Unavailable KENNEDY ., DR CAROL Vyas Attending Unavailable KENNEDY ., DR CAROL Vyas Consulting Unavailable KENNEDY ., DR CAROL Vyas Primary Care Unavailable ROSITA, DR HEATHER Parekh Consulting Unavailable NILSON, DR SINGH Consulting Unavailable KENNEDY ., DR CAROL Vyas Admitting Unavailable KENNEDY ., DR CAROL Vyas Attending Unavailable KENNEDY ., DR CAROL Vyas Consulting Unavailable KENNEDY ., DR CAROL Vyas Primary Care Unavailable ROSITA, DR HEATHER Parekh Consulting Unavailable NILSON, DR SINGH Consulting Unavailable KENNEDY ., DR CAROL Vyas Primary Care Unavailable NILSON, DR SINGH Admitting Unavailable NILSON, DR SINGH Attending Unavailable KENNEDY ., DR CAROL Vyas Admitting Unavailable KENNEDY ., DR CAROL Vyas Attending Unavailable KENNEDY ., DR CAROL Vyas Consulting Unavailable KENNEDY ., DR CAROL Vyas Primary Care Unavailable AURA, DR JAMAL Rowell Consulting Unavailable Connor BRADFORD, Alice Miranda Attending Unavailable Connor BRADFORD, Alice Miranda Attending Unavailable Connor BRADFORD, Alice Miranda Attending Unavailable Connor BRADFORD, Alice Miranda Attending Unavailable Miguel Allen Attending Unavailable Miguel Allen Attending Unavailable Miguel Allen Attending Unavailable Miguel Allen Attending Unavailable Miguel Allen Admitting Unavailable Tatiana Douglas Admitting Unavailable Tatiana Douglas Attending Unavailable Kennedy, Carol Vyas Primary Care Unavailable Kennedy, Carol E Referring Unavailable Allergies Allergy Classification Reported Allergen(s) Allergy Type Date of Onset Reaction(s) Facility (2 sources) gabapentin Drug Allergy 07-15-19 Insomnia [facility] (1 source) Sulfamethoxazole / Trimethoprim Drug Allergy [facility] (1 source) Sulfonamides (Antibiotic) Drug allergy (disorder) 08-21-19 15 [facility] (1 source) Acetaminophen / oxyCODONE; Translations: [Percocet] Drug Allergy [facility] Repository (1 source) gabapentin; Translations: [Neurontin] Drug Allergy [facility] (1 source) Meperidine; Translations: [Demerol] Drug Allergy [facility] (3 sources) Morphine; Translations: [morphine] Drug Allergy 07-15-[address] [facility] (1 source) Sulfonamides (Antibiotic); Translations: [sulfa drugs] Propensity to adverse reactions (disorder) [facility] (2 sources) Latex; Translations: [latex] Allergy to substance 07-15-19 blisters at site of contact [facility] (2 sources) Meperidine; Translations: [meperidine] Drug Allergy 07-15-19 Nausea [facility] (2 sources) oxyCODONE; Translations: [oxycodone] Drug Allergy 07-15-19 [facility] (2 sources) Sulfamethoxazole; Translations: [sulfamethoxazole] Drug Allergy 07-15-19 [facility] (2 sources) Trimethoprim; Translations: [trimethoprim] Drug Allergy 07-15-19 [facility] (1 source) gabapentin Drug Allergy 07-15-19 [facility] Repository Medications Current Medications Medication Drug Class(es) Dates Sig (Normalized) Sig (Original) Carboxymethylcellulose Sodium (Refresh Tears) 0.5 % Drops (1 source) Start: Carboxymethylcellulose Sodium (Refresh Tears) 0.5 % Drops Active 1 DROPS OPHTHALMIC 4-12 TIMES PER DAY December 19, 2016 12:00am furosemide 20 mg oral tablet (1 source) Loop Diuretic Start: 018 take 20 mg by mouth once daily Furosemide Active 20 MG PO Daily June 22, 2017 12:00am hydroxychloroquine sulfate 200 mg oral tablet (1 source) Antimalarial, Antirheumatic Agent Start: take 1 tablet by mouth twice daily Hydroxychloroquine (Plaquenil) 200 mg Tablet Active 200 MG PO Twice daily December 19, 2016 12:00am alternate once a day eod 200mg ibandronic acid 150 mg oral tablet (1 source) Bisphosphonate Start: take 1 tablet by mouth every month Ibandronate (Boniva) 150 mg Tablet Active 150 MG PO every month December 19, 2016 12:00am levothyroxine sodium 0.05 mg oral tablet (1 source) l-Thyroxine Start: take 50 ug by mouth once daily Levothyroxine Active 50 MCG PO Daily December 19, 2016 12:00am lisinopril 10 mg oral tablet (1 source) Angiotensin Converting Enzyme Inhibitor Start: take 10 mg by mouth once daily Lisinopril Active 10 MG PO Daily December 19, 2016 12:00am potassium chloride 10 meq extended release oral capsule (1 source) Start: take 10 mEq by mouth once daily Potassium Chloride Active 10 MEQ PO Daily June 22, 2017 12:00am Completed/Discontinued Medications Medication Drug Class(es) Dates Sig (Normalized) Sig (Original) atorvastatin 10 mg oral tablet (2 sources) HMG-CoA Reductase Inhibitor Start: 12-19-2016 End: 10-15-2017 take 10 mg by mouth once daily Atorvastatin Discontinued 10 MG PO Daily June 22, 2017 12:00am October 15, 2017 10:46am chlorthalidone 25 mg oral tablet (1 source) Thiazide-like Diuretic Start: 12-19-2016 End: 06-22-2017 take 12.5 mg by mouth once daily Chlorthalidone Discontinued 12.5 MG PO Daily December 19, 2016 12:00am June 22, 2017 10:11am cholecalciferol 0.125 mg oral tablet (1 source) Vitamin D Start: 12-19-2016 End: 06-22-2017 take 1 tablet by mouth once daily Cholecalciferol (Vitamin D3) (Vitamin D3) 5,000 unit Tablet Discontinued 5000 UNIT PO Daily December 19, 2016 12:00am June 22, 2017 10:11am omeprazole 20 mg delayed release oral capsule (1 source) Proton Pump Inhibitor Start: 12-19-2016 End: 10-29-2017 take 20 mg by mouth once daily Omeprazole Discontinued 20 MG PO Daily December 19, 2016 12:00am October 29, 2017 9:35am Problems Active Problems Problem Classification Problem Date Documented Date Episodic/Chronic Disorders of lipid metabolism (4 sources) Pure hypercholesterolemia, unspecified; Translations: [PURE HYPERCHOLESTEROLEMIA UNSPEC] Onset: 2 Chronic Malaise and fatigue (2 sources) Weakness; Translations: [Other fatigue] Onset: 2 Episodic Neoplasms of unspecified nature or uncertain behavior (6 sources) Monoclonal gammopathy; Translations: [Monoclonal gammopathy of uncertain significance] Onset: 2 Chronic Nutritional deficiencies (1 source) Vitamin D deficiency, unspecified; Translations: [VITAMIN D DEFICIENCY UNSPECIFIED] Onset: 2 Chronic Osteoporosis (1 source) Osteoporosis; Translations: [Age-related osteoporosis without current pathological fracture] 03-21-2023 Chronic Other bone disease and musculoskeletal deformities (1 source) Osteopenia; Translations: [Other specified disorders of bone density and structure, unspecified site] 12-23-2016 Episodic Other connective tissue disease (1 source) Abnormal posture; Translations: [ABNORMAL POSTURE] Onset: 3 Episodic Other endocrine disorders (1 source) Hyperparathyroidism; Translations: [Hyperparathyroidism, unspecified] 06-22-2017 Chronic Other nervous system disorders (1 source) Unsteadiness on feet; Translations: [UNSTEADINESS ON FEET] Onset: 3 Episodic Other nervous system disorders (1 source) Other abnormalities of gait and mobility; Translations: [OTHER ABNORMALITIES GAIT AND MOBILITY] Onset: 3 Episodic Other nervous system disorders (1 source) Unspecified abnormalities of gait and mobility; Translations: [UNS ABNORMALITIES GAIT AND MOBILITY] Onset: 3 Episodic Other nutritional; endocrine; and metabolic disorders (1 source) Hypercalcemia; Translations: [HYPERCALCEMIA] Onset: 2 Chronic Other nutritional; endocrine; and metabolic disorders (1 source) Hypercalcemia; Translations: [Hypercalcemia] 12-22-2016 Chronic Residual codes; unclassified (1 source) History of parathyroidectomy; Translations: [Other specified postprocedural states] 01-14-2021 Episodic Spondylosis; intervertebral disc disorders; other back problems (8 sources) Radiculopathy, lumbosacral region; Translations: [Intervertebral disc disorders with radiculopathy, lumbar region] Onset: 2 Episodic Systemic lupus erythematosus and connective tissue disorders (9 sources) Systemic involvement of connective tissue, unspecified; 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] Onset: 2 Chronic Thyroid disorders (1 source) Autoimmune thyroiditis; Translations: [AUTOIMMUNE THYROIDITIS] Onset: 2 Chronic Unclassified (1 source) LOW BACK PAIN, UNSPECIFIED; Translations: [LOW BACK PAIN, UNSPECIFIED] Onset: 2 Past or Other Problems Problem Classification Problem Date Documented Da te Episodic/Chronic Other aftercare (1 source) Other detention (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 therapy; Translations: [OTH JAIL CURRENT DRUG THERAPY] Onset: 12-25-2021 Episodic Other non-traumatic joint disorders (3 sources) Pain in right knee; Translations: [PAIN IN RIGHT KNEE] Onset: 02-03-2022 Episodic Other non-traumatic joint disorders (1 source) Pain in left knee; Translations: [PAIN IN LEFT KNEE] Onset: 02-13-2022 Episodic Other screening for suspected conditions (not mental disorders or infectious disease) (1 source) Encounter for screening mammogram for malignant neoplasm of breast; Translations: [ENC SCR MAMMO MALIG NEOPLASM BREAST] Onset: 08-23-2021 Episodic Residual codes; unclassified (1 source) Family history of malignant neoplasm of digestive organs; Translations: [FAM HX MALIG NEOPLASM DIGESTIV ORGN] Onset: 08-23-2021 Episodic Results Test Name Value Interpretation Reference Range Facility Consultation Noteon 03-06-19 Consultation Note [id number]#1.00TIFF [facility] Operative Reporton Operative Report [id number]#1.00TIFF [facility] Consultation Noteon 01-10-20 Consultation Note [id number]#1.00TIFF [facility] Consultation Noteon 12-28-19 Consultation Note [id number]#1.00TIFF [facility] Family Medicine Office/Clini c Noteon 12-27-2022 Family Medicine Office/Clinic Note Chief Complaint Subsequent Medicare Wellness Review of Systems PHQ Score Initial Depression Screen Score: 0 Physical Exam Vitals & Measurements HR: 79(Peripheral) BP: 136/80 SpO2: 96% HT: 146 cm HT: 57 in WT: 66.6 kg WT: 146.52 lb BMI: 31.24 Assessment/Plan 1. Annual visit for general adult medical examination without abnormal findings (Z00.00: Encounter for general adult medical examination without abnormal findings) The patient was given a customized and personalized print out of all the current AHRQ USPSTF?s recommendations for preventative services and all current CDC recommended immunizations, relevant risk recommendations and the following patient brochures were given. Reviewed Medicare preventative services checklist. CDC-Falls Prevention and home safety screening reviewed. Patient has had more than one fall fall in last 12 months, voices no worry about falling, exhibits no problems with sitting, standing, or ambulations. Pt voices understanding with keeping walk way area free of clutter to prevent tripping and/or falling. [place] Advance Directives reviewed, see #3 below. Patient denies any problems with ADL?s and Instrumental ADL?s. Cognitive screening completed with memory and clock face drawing, no deficits noted. Immunization Record reviewed with the patient. Discussed Shingrix vaccine with educational handout and availability. COVID vaccines have been administered, immunization record is up to date. Allergies and medications reviewed and up to date. Patient denies concerns with taking medication as prescribed, reviewed OTC medications with patient, medication list up to date. Blood tests were reviewed: are up to date at this time. Colonoscopy up to date. DEXA scan last completed 2018. Patient requests to have completed with mammogram next August. Mammogram up to date, last completed 08/21/2022. Reviewed pain symptoms with patient: no pain today, states she just came from pain clinic where she had nerve block completed. Reviewed all outside providers that patient follows. Last visit summary notes available in chart and/or have been requested. Follow up scheduled, not yet scheduled AWV has been scheduled, 12/27/23 Medicare provides yearly screening for alcohol and depression concerns. This is completed during our Medicare Wellness visit for those who do not have a current diagnosis of depression or concerns with alcohol use. I spent a total of 17 minutes on this date of service which included preparing to see the patient, face to face patient care, completing clinical documentation, obtaining and/or reviewing separately obtained history, counseling and educating the patient with handouts. Explanations were provided with reviewing questionnaires. AUDIT risk assessment screening completed, risk score 0, with patient denying concerns with use. Completed PHQ-2 risk assessment for depression with risk score 0, negative findings. Patient has been reminded to notify the provider if there would be a change or concerns with symptoms with fear, unable to sleep, worrying too much or feeling down and/or sad with lost of interest with daily activities. Will continue to monitor with screening yearly during Medicare wellness visits. 2. Hypoparathyroidism (E20.9: Hypoparathyroidism, unspecified) Patient taking Levothyroxine 50 mcg daily as directed. Denies concerns with cold intolerance, or change in appetite, constipation, slow growing hair or hair thinning. Follows up with PCP during office visits with blood work and medication management. 3. Advanced care planning/counseling discussion (Z71.89: Other specified counseling) I spent a total of 18 minute face to face with patient during her yearly Medicare wellness visit. This included the explanation of ADVANCED CARE PLANNING for end of life reviewed. Discussion included handout Planning for Important Health Care Decisions with explanations regarding different decisions with It's about how you live . Explained how this allows you to express your values and desires related to the type of care that can adjust as your situation changes and decisions must be made about the emergency treatments to keep you alive and/or comfortable. Reminded patient to ask herself what makes life meaningful to you? . The best way to making sure your wishes are known can be done with these two Advance Directives- a Living Will and a durable power of traffic law attorney for your health care. These two forms were discussed with other documents available as the DNR explanations, dialysis, hospice availability, organ and/or tissue donation. Next we discussed how to choose her representatives. Reminded patient to consider people she knows that also share her same views and values that would be able to follow through with your wishes. May even want to sit them down and discuss how you would like the decisions to be made and make sure they are aware of what you do not want. After you have completed your directives and selected your a (more content not included)... [facility] Comment on above: Result Comment: Elec tronically Signed By: Chel Parker\.br\Date and Time Signed: 12/27/22 12:49 EDT\.br\Electronically Co-Signed By: Abiodun Hodges\.br\Date and Time Co-Signed: 12/25/22 16:07 EDT Operative Reporton Operative Report [id number]#1.00TIFF [facility] Screenson 12-26-2022 Screens [id number]#1.00TIFF [facility] Ambulatory Visit Summaryon 1 Ambulatory Visit Summary MISTY PEREZ :1950 Visit Date:12/25/2022 Ambulatory Visit Instructions Your Diagnosis Annual visit for general adult medical examination without abnormal findings Hypoparathyroidism Advanced care planning/counseling discussion Fibromyalgia Hypertension MGUS (monoclonal gammopathy of unknown significance) Osteoporosis Peripheral neuropathy Class 1 obesity due to excess calories in adult Your Care Team Attending Physician - Miguel Allen MD Primary Care Physician - Miguel Allen MD This Is Your Medications List acetaminophen atorvastatin (atorvastatin 10 mg Tab) cholecalciferol (Vitamin D3 2000 intl units oral Tab) fluocinonide topical (fluocinonide Top 0.05% Crm 15 gram) furosemide (furosemide 20 mg Tab) hydroxychloroquine (hydroxychloroquine 200 mg Tab) ibandronate (ibandronate 150 mg oral tablet) ketoconazole levothyroxine (levothyroxine 50 mcg (0.05 mg) Tab) lisinopril (lisinopril 10 mg Tab) metronidazole topical (metronidazole topical 1% cream) naproxen potassium chloride (Potassium Chloride (Mvx-Jucb-Aje 10) 10 mEq oral tablet, extended release) Procedures Performed Biopsy of breast, Biopsy of thyroid, Bone graft, Bone marrow biopsy, Cancer of skin, Cataract, Colonoscopy, Internal fixation of fracture, Mohs surgery, Parathyroidectomy, Repair of tendon, BREANNA BSO - Total abdominal hysterectomy and bilateral salpingo-oophorectomy. Discharge Vitals Heart Rate (Peripheral) 79 Blood Pressure 136/80 Height 146 cm Height 57 in Weight 66.6 kg Weight 146.52 lb BMI 31.24 What to do next Scheduled Follow-Up Appointments 2023 1:00 PM EDT Where: [facility] Patient Educationon 12-26-19 23 Patient Education Caregiving Fall Prevention in the Home, Adult Falls can cause injuries and affect people of all ages. There are many simple things that you can do to make your home safe and to help prevent falls. Ask for help when making these changes, if needed. What actions can I take to prevent falls? General instructions ? Use good lighting in all rooms. Replace any light bulbs that burn out, turn on lights if it is dark, and use night-lights. ? Place frequently used items in cgfh-tl-fnfbi places. Lower the shelves around your home if necessary. ? Set up furniture so that there are clear paths around it. Avoid moving your furniture around. ? Remove throw rugs and other tripping hazards from the floor. ? Avoid walking on wet floors. ? Fix any uneven floor surfaces. ? Add color or contrast paint or tape to grab bars and handrails in your home. Place contrasting color strips on the first and last steps of staircases. ? When you use a stepladder, make sure that it is completely opened and that the sides and supports are firmly locked. Have someone hold the ladder while you are using it. Do not climb a closed stepladder. ? Know where your pets are when moving through your home. What can I do in the bathroom? ? Keep the floor dry. Immediately clean up any water that is on the floor. ? Remove soap buildup in the tub or shower regularly. ? Use nonskid mats or decals on the floor of the tub or shower. ? Attach bath mats securely with double-sided, nonslip rug tape. ? If you need to sit down while you are in the shower, use a plastic, nonslip stool. ? Install grab bars by the toilet and in the tub and shower. Do not use towel bars as grab bars. What can I do in the bedroom? ? Make sure that a bedside light is easy to reach. ? Do not use oversized bedding that reaches the floor. ? Have a firm chair that has side arms to use for getting dressed. What can I do in the kitchen? ? Clean up any spills right away. ? If you need to reach for something above you, use a sturdy step stool that has a grab bar. ? Keep electrical cables out of the way. ? Do not use floor nepali or wax that makes floors slippery. If you must use wax, make sure that it is non-skid floor wax. What can I do with my stairs? ? Do not leave any items on the stairs. ? Make sure that you have a light switch at the top and the bottom of the stairs. Have them installed if you do not have them. ? Make sure that there are handrails on both sides of the stairs. Fix handrails that are broken or loose. Make sure that handrails are as long as the staircases. ? Install non-slip stair treads on all stairs in your home. ? Avoid having throw rugs at the top or bottom of stairs, or secure the rugs with carpet tape to prevent them from moving. ? Choose a carpet design that does not hide the edge of steps on the stairs. ? Check any carpeting to make sure that it is firmly attached to the stairs. Fix any carpet that is loose or worn. What can I do on the outside of my home? ? Use bright outdoor lighting. ? Regularly repair the edges of walkways and driveways and fix any cracks. ? Remove high doorway thresholds. ? Trim any shrubbery on the main path into your home. ? Regularly check that handrails are securely fastened and in good repair. Both sides of all steps should have handrails. ? Install guardrails along the edges of any raised decks or porches. ? Clear walkways of debris and clutter, including tools and rocks. ? Have leaves, snow, and ice cleared regularly. ? Use sand or salt on walkways during winter months. ? In the garage, clean up any spills right away, including grease or oil spills. What other actions can I take? ? Wear closed-toe shoes that fit well and support your feet. Wear shoes that have rubber soles or low heels. ? Use mobility aids as needed, such as canes, walkers, scooters, and crutches. ? Review your medicines with your health care provider. Some medicines can cause dizziness or changes in blood pressure, which increase your risk of falling. Talk with your health care provider about other ways that you can decrease your risk of falls. This may include working with a physical therapist or rehab trainer to improve your strength, balance, and endurance. Where to find more information ? Centers for Disease Control and Prevention, [place]: www.cdc.gov ? [place] [employer]: www.joao.nih.gov Contact a health care provider if: ? You are afraid of falling at home. ? You feel weak, drowsy, or dizzy at home. ? You fall at home. Summary ? There are many simple things that you can do to make your home safe and to help prevent falls. ? Ways to make your home safe include removing tripping hazards and installing grab bars in the bathroom. ? Ask for help when making these changes in your home. This information is not intended to replace advice given to you by your health ca (more content not included)... [facility] Consultation Noteon 12-21-19 Consultation Note [id number]#[id number] [facility] Consultation Noteon 12-20-19 Consultation Note [id number] [facility] Operative Reporton 3 Operative Report [id number]:127 [facility] Consultation Noteon 11-16-19 Consultation Note [id number]:127 [facility] Consultation Noteon 10-03-19 Consultation Note [id number]:[address] [facility] Outside Mammographyon 2022 Outside Mammography [id number]:[address] [facility] Immunoglobs. A/E/G/Mon 08-01 IgA Quant duplt test Invalid Interpretation Code [facility] Comment on above: Performed By: #### 1 [id number], [id number], [id number], [id number], [id number], [id number], [id number], [id number], [id number], [id number] ####[facility] [address] [place] [address] IgG Quant duplt test Invalid Interpretation Code [facility] Comment on above: Performed By: #### 1 [id number], [id number], [id number], [id number], [id number], [id number], [id number], [id number], [id number], [id number] ####[facility] [address] [place] [address] IgM Quant duplt test Invalid Interpretation Code [facility] Comment on above: Performed By: #### 1 [id number], [id number], [id number], [id number], [id number], [id number], [id number], [id number], [id number], [id number], [id number] ####[facility] [address] [place] [address] B2 Microon 07-29-2022 Rvml-2-Azvrnjgudxq in [Mass/Vol] 3.8 ug/mL High 0.6-2.4 [facility] Comment on above: Result Comment: Siem [facility] Immulite 2000 Immunochemiluminometric assay (ICMA) Values obtained with different assay methods or kits cannot be used interchangeably. Results cannot be interpreted as absolute evidence of the presence or absence of malignant disease. Performed at: [address] [id number] MD Mike Jensen Performed By: #### 1 4831010, 5890514, 7713147, 7713027, 38574135, 3967581, 627809238, 4999840, 0662640, 17457891, 35832103, 25030221 ####[facility] [address] [place] [address] Immunofixation Serumon 07-29 IgA [Mass/Vol] 80 mg/dL Invalid Interpretation Code 64422 [facility] Comment on above: Performed By: #### 1 8023695, 8974996, 8440049, 2783407, 26779384, 8683437, 437416277, 8698049, 0010813, 30849294, 49191915, 52103160 ####[facility] [address] [place] [address] IgG [Mass/Vol] 986 mg/dL Invalid Interpretation Code 355-7382 [facility] Comment on above: Performed By: #### 1 0966192, 9327129, 5753740, 5080380, 21729050, 6870715, 816939499, 6584222, 5516207, 18289487, 66752739, 58597908 ####[facility] [address] [place] [address] IgM [Mass/Vol] 49 mg/dL Invalid Interpretation Code [facility] Comment on above: Result Comment: Perf ormed at: [facility] [id number] PhD Gloria Townsend Performed By: #### 1 3065832, 6951601, 8914087, 1605734, 65387451, 7014245, 927475820, 1632229, 6326439, 97503769, 54645317, 83564525 ####[facility] [address] [place] [address] Protein Fractions [Interp] Comment Invalid Interpretation Code [facility] Comment on above: Result Comment: Immu nofixation shows IgG monoclonal protein with lambda light chain specificity. Performed By: #### 1 7853380, 3270778, 5458556, 1170180, 63211986, 0322508, 183784525, 2337893, 1125361, 19254735, 36298747, 02562653 ####[facility] [address] [place] [address] Result Comment: The SPE pattern demonstrates a single peak (M-spike) in the gamma region which may represent monoclonal protein. This peak may also be caused by circulating immune complexes, cryoglobulins, C-reactive protein, fibrinogen or hemolysis. If clinically indicated, the presence of a monoclonal gammopathy may be confirmed by immuno- fixation, as well as an evaluation of the urine for the presence of Bence-Sanchez protein. Performed at: [facility] [id number] PhD Gloria Saravias. A/E/G/Mon 07-29 IgE Qn 227 International_Unit/mL Invali d Interpretation Code 6-153 [facility] Comment on above: Result Comment: Perf ormed at: [facility] [address] [id number] MD Mike Jensen Performed By: #### 1 2999194, 5794735, 5205511, 2655520, 10957030, 1428055, 721601614, 7108686, 0140387, 95858145, 42671063, 74561524 ####[facility] [address] [place] [address] SPEon 07-29-2022 Albumin [Mass/Vol] 3.6 g/dL Invalid Interpretation Code 2.9-4.4 [facility] Comment on above: Performed By: #### 1 6564198, 0350232, 1733381, 7728930, 43451764, 2145933, 008249942, 0283736, 2608103, 64112488, 01418600, 19098553 ####[facility] [address] [place] [address] Albumin/Globulin [Mass ratio] 1.1 {ratio} Invalid Interpretation Code 0.7-1.7 [facility] Comment on above: Performed By: #### 1 3778745, 5564763, 5704606, 9056716, 85849513, 9362605, 513199715, 1233463, 7306582, 31234720, 89608265, 98193257 ####[facility] [address] [place] [address] Alpha 1 globulin Elph [Mass/Vol] 0.3 g/dL Invalid Interpretation Code 0.0-0.4 [facility] Comment on above: Performed By: #### 1 0302389, 2615809, 5709937, 7877540, 17405437, 8614002, 839831978, 5304415, 9147505, 26743334, 44824347, 11524519 ####[facility] [address] [place] [address] Alpha 2 globulin Elph [Mass/Vol] 0.8 g/dL Invalid Interpretation Code 0.4-1.0 [facility] Comment on above: Performed By: #### 1 0863288, 9238340, 4032729, 3594042, 91676885, 6053742, 110083487, 3166271, 2525966, 18603906, 87127184, 48893400 ####[facility] [address] [place] [address] Beta globulin Elph [Mass/Vol] 1.0 g/dL Invalid Interpretation Code 0.7-1.3 [facility] Comment on above: Performed By: #### 1 7805108, 6358365, 2170295, 5787147, 78059494, 9750006, 190734599, 9585702, 1893076, 13580078, 14525376, 21430796 ####[facility] [address] [place] [address] Gamma globulin Elph [Mass/Vol] 1.0 g/dL Invalid Interpretation Code 0.4-1.8 [facility] Comment on above: Performed By: #### 1 8742684, 0600511, 0838197, 7616888, 53518277, 6351474, 892844903, 2984612, 0220399, 92483435, 86415088, 89536683 ####[facility] [address] [place] [address] Globulin (S) [Mass/Vol] 3.2 g/dL Invalid Interpretation Code 2.2-3.9 [facility] Comment on above: Performed By: #### 1 6111245, 3064259, 5644575, 4151514, 68025085, 7256301, 201284494, 7068131, 7512756, 56086318, 32795074, 89824001 ####[facility] [address] [place] [address] Laboratory comment Cecilio (Report) Comment Invalid Interpretation Code [facility] Comment on above: Result Comment: Prot ein electrophoresis scan will follow via computer, mail, or pharmacist's aide delivery. Performed By: #### 1 9722618, 8106257, 1249540, 2023588, 50440615, 0898585, 973722768, 4283400, 4687430, 04027994, 30728010, 21028740 ####[facility] [address] [place] [address] Protein [Mass/Vol] 6.8 g/dL Invalid Interpretation Code 6.0-8.5 [facility] Comment on above: Performed By: #### 1 1207928, 0505666, 7617382, 7370411, 61354633, 1796119, 795084100, 1527171, 6791541, 82871795, 78610336, 90867512 ####[facility] [address] [place] [address] Protein.monoclonal Elph [Mass/Vol] 0.9 gm/dL High Not Observed [facility] Comment on above: Performed By: #### 1 8652135, 5603261, 7221522, 1420057, 66924886, 0479684, 728775766, 3343091, 7398993, 71361547, 60995216, 81132767 ####[facility] [address] [place] [address] T3 Freeon 07-29-2022 Free T3 [Mass/Vol] 3.1 pg/mL Invalid Interpretation Code 2.0-4.4 [facility] Comment on above: Result Comment: Perf ormed at: [facility] [address] [id number] PhD Gloria Townsend Performed By: #### 1 3261081, 3193168, 6487567, 0892274, 27793777, 9214421, 272988789, 9540232, 8461468, 10796525, 77568058, 54037036 ####[facility] [address] [place] [address] Family Medicine Office/Clini c Noteon 07-26-2022 Family Medicine Office/Clinic Note Chief Complaint establish care HPI Staff establish care Establish Care: History:htn, anemia, hypothyroid, hypercholesterolemia,sogre ns Last provider: Dr Kennedy Any recent labs: 08/19/21 Health Maintenance UTD: Colonoscopy: 2019 normal Mammogram:08/19/21 Pelvic/Pap: no longer does, hysterectomy covid: UTD Acute: Current issues/complaints: med refills and review chronic conditions, check something on her back doesn't see director of enterprise applications until August 11, not sure if it's something you can start treatment on for her Needs her levothyroxine, lisinopril, ibandronate, atorvastatin, potassium and furosemide History of Present Illness Misty Perez is a 72-year-old female who presents today to [facility]. She has a history of hypoparathyroidism and was following up with Dr. Pierce. The patient has a copy of blood work that was ordered annually. She has a history of MGUS that was initially diagnosed by Dr. Tatiana Douglas, oncology. She had a SPEP and immunofixation blood test ordered annually. She has a history of Sjogren's syndrome and is being followed by Dr. Mello. She has recent diagnosis of fibromyalgia. She states that she is currently experiencing a flare-up in her fibromyalgia. She has tried Neurontin in the past, but had a reaction to it with muscle spasms and insomnia. She has a history of vitamin D deficiency. The patient is requesting a lipid profile done. She is currently taking Lipitor and would like to discontinue the medication. She has recently lost some weight. She reports a painful and itchy spot on her back. She has tried applying cortisone cream and ketoconazole. She has a family history of diabetes. She notes her HbA1c have always been normal. Review of Systems PHQ Score Initial Depression Screen Score: 1 General: alert, no acute distress. Patient is using a walker for ambulation. ENMT: oral mucosa moist, no pharyngeal erythema or exudate Cardiovascular: regular rate and rhythm, normal peripheral perfusion Respiratory: Lungs CTA, respirations non labored Extremities: no deformity, no trauma Neurological: oriented x 4, LOC appropriate for age, CN II-XII intact, motor strength equal & normal bilaterally, speech normal Skin: Irritated seborrheic keratosis noted in the middle of the patient's back. Physical Exam Vitals & Measurements HR: 77(Peripheral) RR: 16 BP: 132/74 SpO2: 95% HT: 59 in HT: 149.86 cm WT: 69.1 kg WT: 152.02 lb BMI: 30.77 Assessment/Plan We will see the patient back in 3 months after lab work. Total time spent preparing for the encounter, evaluating and assessing the patient, documenting the visit, and ordering appropriate follow-up work was 45 minutes. 1. Hypoparathyroidism (E20.9: Hypoparathyroidism, unspecified) At this time, labs have been ordered. Patient is on vitamin D3 and that is it at this time. We will continue to monitor the hyperparathyroidism and adjust medicine as needed. 2. Sjogren's syndrome (M35.00: Sjogren syndrome, unspecified) Patient is seeing Dr. Mello for this. No concerns at this time. 3. Fibromyalgia (M79.7: Fibromyalgia) Patient is stable. Did not tolerate medication for the neuropathy that was coming with her fibromyalgia. 4. Anemia (D64.9: Anemia, unspecified) This is secondary to MGUS. I have ordered labs for the year. Discussed possibly going back to oncology as the patient has not seen oncology for several years. We will order basic MGUS labs today. CBC was ordered. 5. Hypertension (I10: Essential (primary) hypertension) Patient is at goal for blood pressure at this time. We will refill medications today. 6. Hypothyroidism (E03.9: Hypothyroidism, unspecified) 7. SK (seborrheic keratosis) (L82.1: Other seborrheic keratosis) Encouraged the patient to follow up with dermatology for possible biopsy and removal as this is very irritated for the patient. 8. MGUS (monoclonal gammopathy of unknown significance) (D47.2: Monoclonal gammopathy) Ordered basic electrophoresis. Patient will need to follow up with oncology if any of this is abnormal. 9. Vitamin D deficiency (E55.9: Vitamin D deficiency, unspecified) We will have the patient continue taking vitamin D3 moving forward. 10. Peripheral neuropathy (G62.9: Polyneuropathy, unspecified) Patient did not tolerate medication. We will continue to monitor. 11. BMI 30.0-30.9,adult (Z68.30: Body mass index [BMI] 30.0-30.9, adult) BMI education given. 12. Class 1 obesity due to excess calories in adult (E66.09: Other obesity due to excess calories) As above. ATTESTATION: Documentation services were performed after patient or guardian consented to allow Solange Lewis to record this visit. YANI clinical trials specialist and provider reviewed before signing. YANI: Izaiah Dillon Follow-up No qualifying data available Problem List/Past Medical History Ongoing Anemia Fibromyalgia Hypertension Hypoparathyroidism Hypothyroidism MGUS (monoclonal gammopathy of (more content not included)... Normal [facility] Comment on above: Result Comment: Elec tronically Signed By: Miguel Allen MD\.br\Date and Time Signed: 07/26/22 10:13 EDT\.br\Electronically Co-Signed By: Izaiah Dillon\.br\Date and Time Co-Signed: 07/24/22 15:51 EDT PTH [place] 07-26-2022 Parathyrin.intact [Mass/Vol] 43 pg/mL Invalid Interpretation Code 15-65 [facility] Comment on above: Result Comment: Perf ormed at: [facility] [address] [id number] PhD Gloria Townsend Performed By: #### 1 [id number] ####[facility] [address] [place] [address] Ambulatory Visit Summaryon 0 07-24-2022 Ambulatory Visit Summary MISTY PEREZ :1950 Visit Date:07/24/2022 Ambulatory Visit Instructions Your Diagnosis Hypoparathyroidism Sjogren's syndrome Fibromyalgia Anemia Hypertension Hypothyroidism SK (seborrheic keratosis) MGUS (monoclonal gammopathy of unknown significance) Vitamin D deficiency Peripheral neuropathy BMI 30.0-30.9,adult Class 1 obesity due to excess calories in adult Your Care Team Attending Physician - Miguel Allen MD Primary Care Physician - Miguel Allen MD This Is Your Medications List atorvastatin (atorvastatin 10 mg Tab) cholecalciferol (Vitamin D3 2000 intl units oral Tab) furosemide (furosemide 20 mg Tab) ibandronate (ibandronate 150 mg oral tablet) levothyroxine (levothyroxine 50 mcg (0.05 mg) Tab) lisinopril (lisinopril 10 mg Tab) potassium chloride (Potassium Chloride (Jer-Pfmz-Wzd 10) 10 mEq oral tablet, extended release) Contact prescribing physician if questions or concerns hydroxychloroquine (hydroxychloroquine 200 mg Tab) metronidazole topical (metronidazole topical 1% cream) [Image Removed: STOP]Stop taking these medications ketoconazole topical (ketoconazole Top 2% Crm) Procedures Performed Biopsy of breast, Biopsy of thyroid, Bone graft, Bone marrow biopsy, Cancer of skin, Cataract, Colonoscopy, Internal fixation of fracture, Parathyroidectomy, Repair of tendon, BREANNA BSO - Total abdominal hysterectomy and bilateral salpingo-oophorectomy. Discharge Vitals Heart Rate (Peripheral) 77 Respiratory Rate 16 Blood Pressure 132/74 Height 149.86 cm Height 59 in Weight 69.1 kg Weight 152.02 lb BMI 30.77 Medications What How Much When Instructions Changed atorvastatin (atorvastatin 10 mg Tab) 1 Tablets By Mouth Every day Pickup at [facility] Changed cholecalciferol (Vitamin D3 2000 intl units oral Tab) 50 Microgram By Mouth Every day Pickup at [facility] Changed furosemide (furosemide 20 mg Tab) 1 Tablets By Mouth Every day Pickup at [facility] Changed ibandronate (ibandronate 150 mg oral tablet) 1 Tablets By Mouth Once a month Pickup at [facility] Changed levothyroxine (levothyroxine 50 mcg (0.05 mg) Tab) 1 Tablets By Mouth Every day Pickup at [place] [address] Changed lisinopril (lisinopril 10 mg Tab) 1 Tablets By Mouth Every day Pickup at [place] [address] Changed potassium chloride (Potassium Chloride (Brg-Fzpj-Une 10) 10 mEq oral tablet, extended release) 1 Tablets By Mouth Every day Pickup at [place] [address] Unchanged hydroxychloroquine (hydroxychloroquine 200 mg Tab) See instructions 200mg orally twice a day alternating with 200mg once a day Contact prescribing physician if questions or concerns Unchanged metronidazole topical (metronidazole topical 1% cream) 1 Application Topical 2 times a day use for rosacea Contact prescribing physician if questions or concerns Pharmacy Information [place] [address]: [address], [place] [phone] What How Much When Comments Stop Taking ketoconazole topical (ketoconazole Top 2% Crm) See instructions apply to affected area 3 times a day as needed Allergies Neurontin (Unknown) sulfa drugs (Unknown) Problems Ongoing - Any problem that you are currently receiving treatment for. Anemia Fibromyalgia Hypertension Hypoparathyroidism Hypothyroidism MGUS (monoclonal gammopathy of unknown significance) Osteoarthritis of knee Osteoporosis Peripheral neuropathy Sjogren's syndrome SK (seborrheic keratosis) Vitamin D deficiency [facility] Ambulatory Visit Summary MISTY PEREZ :1950 Visit Date:07/24/2022 Ambulatory Visit Instructions Your Diagnosis Hypoparathyroidism Sjogren's syndrome Fibromyalgia Anemia Hypertension Hypothyroidism SK (seborrheic keratosis) MGUS (monoclonal gammopathy of unknown significance) Vitamin D deficiency Peripheral neuropathy BMI 30.0-30.9,adult Class 1 obesity due to excess calories in adult Your Care Team Attending Physician - Miguel Allen MD Primary Care Physician - Miguel Allen MD This Is Your Medications List atorvastatin (atorvastatin 10 mg Tab) cholecalciferol (Vitamin D3 2000 intl units oral Tab) furosemide (furosemide 20 mg Tab) ibandronate (ibandronate 150 mg oral tablet) levothyroxine (levothyroxine 50 mcg (0.05 mg) Tab) lisinopril (lisinopril 10 mg Tab) potassium chloride (Potassium Chloride (Odt-Hwqs-Egi 10) 10 mEq oral tablet, extended release) Contact prescribing physician if questions or concerns hydroxychloroquine (hydroxychloroquine 200 mg Tab) metronidazole topical (metronidazole topical 1% cream) [Image Removed: STOP]Stop taking these medications ketoconazole topical (ketoconazole Top 2% Crm) Procedures Performed Biopsy of breast, Biopsy of thyroid, Bone graft, Bone marrow biopsy, Cancer of skin, Cataract, Colonoscopy, Internal fixation of fracture, Parathyroidectomy, Repair of tendon, BREANNA BSO - Total abdominal hysterectomy and bilateral salpingo-oophorectomy. Discharge Vitals Heart Rate (Peripheral) 77 Respiratory Rate 16 Blood Pressure 132/74 Height 149.86 cm Height 59 in Weight 69.1 kg Weight 152.02 lb BMI 30.77 Medications What How Much When Instructions Changed atorvastatin (atorvastatin 10 mg Tab) 1 Tablets By Mouth Every day Pickup at [place] [address] Changed cholecalciferol (Vitamin D3 2000 intl units oral Tab) 50 Microgram By Mouth Every day Pickup at [facility] 115 Changed furosemide (furosemide 20 mg Tab) 1 Tablets By Mouth Every day Pickup at [facility] 115 Changed ibandronate (ibandronate 150 mg oral tablet) 1 Tablets By Mouth Once a month Pickup at [facility] 115 Changed levothyroxine (levothyroxine 50 mcg (0.05 mg) Tab) 1 Tablets By Mouth Every day Pickup at [facility] 115 Changed lisinopril (lisinopril 10 mg Tab) 1 Tablets By Mouth Every day Pickup at [place] [address] Changed potassium chloride (Potassium Chloride (Xxg-Xpfg-Nno 10) 10 mEq oral tablet, extended release) 1 [facility] By Mouth [facility] Unchanged hydroxychloroquine (hydroxychloroquine 200 mg Tab) See instructions 200mg orally twice a day alternating with 200mg once a day Contact prescribing physician if questions or concerns Unchanged metronidazole topical (metronidazole topical 1% cream) 1 Application Topical 2 times a day use for rosacea Contact prescribing physician if questions or concerns Pharmacy Information [facility]: [address], [place] [phone] What How Much When Comments Stop Taking ketoconazole topical (ketoconazole Top 2% Crm) See instructions apply to affected area 3 times a day as needed Allergies Neurontin (Unknown) sulfa drugs (Unknown) Problems Ongoing - Any problem that you are currently receiving treatment for. Anemia Fibromyalgia Hypertension Hypoparathyroidism Hypothyroidism MGUS (monoclonal gammopathy of unknown significance) Osteoarthritis of knee Osteoporosis Peripheral neuropathy Sjogren's syndrome SK (seborrheic keratosis) Vitamin D deficiency Normal [facility] Auto Diffon 07-24-2022 Basophils/100 WBC (Bld) 0.7 % Normal 0.0-2.0 [facility] Comment on above: Order Comment: Order Added by Discern Expert. Performed By: #### 1 4558368, 9899351, 8658692, 8511428, 87792847, 4693173, 632499373, 1620418, 7979454, 65074948, 83373948, 77780155 ####[facility] [address] [place] [address] Basophils/Leukocyt es Auto (Bld) [Pure # fraction] 0.0 E9/L Normal 0.0-0.2 [facility] Comment on above: Order Comment: Order Added by Discern Expert. Performed By: #### 1 5535586, 8303788, 9891903, 9598955, 50703283, 6113525, 172284750, 7831375, 7205316, 79857928, 28087447, 55021236 ####[facility] [address] [place] [address] Eosinophils/100 WBC (Bld) 2.0 % Normal 0.0-8.0 [facility] Comment on above: Order Comment: Order Added by Discern Expert. Performed By: #### 1 1711546, 3186030, 6535010, 4681652, 98931057, 1544665, 156357488, 6104924, 7817713, 02576383, 71834039, 42293742 ####[facility] [address] [place] [address] Eosinophils/Leukoc ytes Auto (Bld) [Pure # fraction] 0.1 E9/L Normal 0.0-0.5 [facility] Comment on above: Order Comment: Order Added by Discern Expert. Performed By: #### 1 8663222, 3942168, 9876465, 6167729, 25871289, 9211290, 602010240, 0569640, 8362450, 93808346, 60966423, 91334598 ####[facility] [address] [place] [address] Lymphocytes/100 WBC (Bld) 18.9 % Normal 14.0-50.0 [facility] Comment on above: Order Comment: Order Added by Discern Expert. Performed By: #### 1 8459393, 4519303, 1384277, 0918261, 26373006, 2094696, 678714463, 6713283, 8654606, 14285124, 29209113, 93567218 ####[place] [address] [place] [address] Lymphocytes/Leukoc ytes Auto (Bld) [Pure # fraction] 0.9 E9/L Low 1.0-4.0 [facility] Comment on above: Order Comment: Order Added by Discern Expert. Performed By: #### 1 1974676, 4537336, 5146912, 9653479, 72315297, 2248475, 015610826, 6612252, 5813431, 22774421, 87781269, 41789125 ####[place] [address] [place] [address] Monocytes/100 WBC (Bld) 10.7 % Normal 4.0-14.0 [facility] Comment on above: Order Comment: Order Added by Discern Expert. Performed By: #### 1 1996744, 3603442, 6011331, 1593321, 02483470, 0006146, 632861740, 9624517, 9376514, 63888930, 99910295, 75957773 ####[place] [address] [place] [address] Monocytes/Leukocyt es Auto (Bld) [Pure # fraction] 0.5 E9/L Normal 0.2-1.0 [facility] Comment on above: Order Comment: Order Added by Discern Expert. Performed By: #### 1 5097055, 8402100, 3091272, 7365090, 59802747, 8733435, 746354049, 5809556, 7339447, 07816462, 99093855, 82435197 ####[facility] [address] [place] [address] Neutrophils/100 WBC (Bld) 67.7 % Normal 36.0-75.0 [facility] Comment on above: Order Comment: Order Added by Discern Expert. Performed By: #### 1 6165238, 8945495, 5030916, 3991247, 75250002, 3294821, 727043210, 4095916, 3923979, 72848725, 76869114, 38560379 ####[place] [address] [place] [address] Neutrophils/Leukoc ytes Auto (Bld) [Pure # fraction] 3.3 E9/L Normal 2.0-7.5 [facility] Comment on above: Order Comment: Order Added by Discern Expert. Performed By: #### 1 7643481, 0727342, 6879259, 0977466, 32554740, 5680487, 491802848, 3972648, 8839522, 67841648, 57546384, 99733014 ####[place] [address] [place] [address] CBC w/ Auto Diffon 3 Erythrocyte distribution width (RBC) [Ratio] 12.5 % Normal 10.9-14.2 [facility] Comment on above: Performed By: #### 1 2694092, 4324444, 6444584, 4107307, 22166429, 6939374, 483761724, 0894267, 2983514, 38387297, 95456981, 65967858 ####[place] [address] [place] [address] Hematocrit (Bld) [Volume fraction] 40.8 % Normal 34.0-46.0 [facility] Comment on above: Performed By: #### 1 2041463, 1381862, 2162569, 1657886, 79307570, 7498938, 299226802, 5814913, 6822001, 02985865, 88323162, 29859203 ####[facility] [address] [place] [address] Hemoglobin (Bld) [Mass/Vol] 13.1 g/dL Normal 12.0-16.0 [facility] Comment on above: Performed By: #### 1 2925749, 6701407, 2773678, 6587081, 20299596, 7045764, 037879869, 6429897, 3023653, 02285765, 43192571, 53733537 ####[place] [address] [place] [address] MCH (RBC) [Entitic mass] 30.4 pg Normal 27.0-34.0 [facility] Comment on above: Performed By: #### 1 4901183, 4678010, 2824826, 1370805, 03933388, 6025203, 422088577, 8317911, 1940200, 45592793, 63406844, 44038372 ####[facility] [address] [place] [address] MCHC (RBC) [Mass/Vol] 32.1 g/dL Normal 31.4-36.0 [facility] Comment on above: Performed By: #### 1 1240829, 2936351, 7363715, 3318444, 96593689, 5554167, 120638786, 6591743, 8785515, 39107493, 34573049, 35068996 ####[facility] [address] [place], [place] [address] MCV (RBC) [Entitic vol] 94.4 fL Normal 80.0-100.0 [facility] Comment on above: Performed By: #### 1 6430161, 1172540, 9978677, 2029588, 39029463, 5932877, 650895023, 6672226, 6265997, 56255194, 20314657, 39580449 ####[facility] [address] [place] [address] Platelet mean volume (Bld) [Entitic vol] 9.8 fL Normal 6.4-10.8 [facility] Comment on above: Performed By: #### 1 3716120, 6218344, 8781433, 4258581, 96946513, 0158701, 976771799, 6820149, 6535638, 84353819, 08733074, 91920850 ####[address] [place] [address] Platelets (Bld) [#/Vol] 169.0 E9/L Normal 150.0-500.0 [facility] Comment on above: Performed By: #### 1 2279838, 8828769, 5783890, 8410149, 71050017, 1309663, 382706490, 6701574, 1104540, 32556892, 40882947, 10073264 ####[address] [place] [address] RBC (Bld) [#/Vol] 4.3 E12/L Normal 4.3-5.9 [facility] Comment on above: Performed By: #### 1 1957075, 6194002, 3440958, 9492251, 94138983, 6371403, 746106862, 1627924, 0853500, 98529694, 74636872, 49181375 ####[address] [place] [address] WBC corrected for nucl RBC Auto (Bld) [#/Vol] 4.9 E9/L Normal 4.0-11.0 [facility] Comment on above: Performed By: #### 1 3153626, 5098832, 4974713, 6100310, 53686972, 4711195, 055467036, 3488633, 8202778, 32308350, 57739336, 42593230 ####[facility] [address] [place] [address] CMPon 07-24-2022 Albumin [Mass/Vol] 3.4 g/dL Normal 3.3-5.0 [facility] Comment on above: Performed By: #### 1 4340643, 0936056, 2924333, 1129245, 96443802, 0600576, 468803762, 9749422, 5254520, 22452947, 31631497, 11081496 ####[facility] [address] [place] [address] Albumin/Globulin (S) [Mass conc ratio] 0.9 Low 1.1-2.2 [facility] Comment on above: Performed By: #### 1 1882865, 8836524, 0867310, 1394420, 29447342, 1347706, 500175975, 6566169, 6430156, 48274606, 05137194, 94310777 ####[address] [place] [address] ALP [Catalytic activity/Vol] 80 Int._Unit/L Normal 21-98 [facility] Comment on above: Performed By: #### 1 4225356, 0098004, 4730780, 7185692, 65570522, 8465013, 348271695, 6516848, 1397399, 24990710, 81672190, 51504717 ####[address] [place] [address] ALT No additional P-5'-P [Catalytic activity/Vol] 23 Int._Unit/L Normal 6-46 [facility] Comment on above: Performed By: #### 1 6358214, 9091675, 9815244, 3994148, 93431383, 7366382, 050962435, 7156458, 5451716, 10119591, 77717640, 09570167 ####[address] [place] [address] Anion gap [Moles/Vol] 10 mmol/L Normal 6-16 [facility] Comment on above: Performed By: #### 1 7522501, 3327316, 3900653, 6212195, 73285205, 7406933, 804727217, 1093939, 1542758, 70313963, 43535420, 49076351 ####[facility] [address] [place] [address] AST [Catalytic activity/Vol] 28 Int._Unit/L Normal 5-43 [facility] Comment on above: Performed By: #### 1 9650309, 4921344, 8339141, 5231605, 45036109, 6213857, 987287658, 9368702, 0574969, 14018114, 46528861, 66231979 ####[facility] [address] [place] [address] Bilirubin [Mass/Vol] 0.7 mg/dL Normal 0.0-1.1 [facility] Comment on above: Performed By: #### 1 0209952, 6581768, 1544501, 9702635, 53473293, 6660433, 611289299, 6621561, 5108367, 27232519, 50008959, 94884660 ####[facility] [address] [place] [address] Calcium [Mass/Vol] 9.7 mg/dL Normal 8.9-11.1 [facility] Comment on above: Performed By: #### 1 3736162, 1556503, 8755508, 4018338, 31598071, 0739610, 239215333, 2440088, 3761616, 57258569, 47838245, 39570757 ####[facility] [address] [place] [address] Chloride [Moles/Vol] 106 mmol/L Normal 101-111 [facility] Comment on above: Performed By: #### 1 2386025, 8992625, 0194793, 7375759, 39432741, 2314245, 732647030, 7417769, 2827381, 30185134, 05932128, 67083298 ####[facility] [address] [place] [address] CO2 [Moles/Vol] 30 mmol/L Normal 21-31 [facility] Comment on above: Performed By: #### 1 6367121, 6788195, 2066163, 3099866, 39982523, 4989091, 006770284, 5223850, 8198076, 58230996, 91652313, 94188606 ####[facility] [address] [place] [address] Creatinine [Mass/Vol] 0.9 mg/dL Normal 0.5-1.3 [facility] Comment on above: Performed By: #### 1 4474543, 1873689, 1421141, 8571919, 37263557, 3469701, 266000026, 0079276, 4600861, 84155888, 67590624, 73210832 ####[facility] [address] [place] [address] Globulin (S) [Mass/Vol] 3.9 g/dL Normal 1.4-4.0 [facility] Comment on above: Performed By: #### 1 1551726, 0277537, 1670716, 5752477, 18777840, 1082818, 451580486, 7595474, 8145911, 68743656, 62190216, 89091605 ####[facility] [address] [place] [address] Glucose [Mass/Vol] 98 mg/dL Normal 55-199 [facility] Comment on above: Result Comment: If t his glucose result represents a fasting glucose, interpretation should refer to the following reference range: 55-99 mg/dL Performed By: #### 1 8676457, 5762600, 9810836, 0742713, 42266078, 5410632, 724476943, 8106234, 0535321, 06162579, 12663352, 36020550 ####[facility] [address] [place] [address] Potassium [Moles/Vol] 4.4 mmol/L Normal 3.5-5.3 [facility] Comment on above: Performed By: #### 1 9964570, 6393880, 7726502, 6817442, 21073823, 5912863, 623399010, 5756144, 6737052, 15300650, 89173270, 88593117 ####[facility] [address] [place] [address] Protein [Mass/Vol] 7.3 g/dL Normal 6.0-7.8 [facility] Comment on above: Performed By: #### 1 5423910, 9473861, 7586668, 6565054, 77019925, 4336141, 925302339, 0466675, 9215581, 01151199, 76222435, 19118555 ####[address] [place] [address] Sodium [Moles/Vol] 142 mmol/L Normal 135-145 [facility] Comment on above: Performed By: #### 1 5883266, 9175617, 1371346, 4060603, 97565140, 6373888, 855214652, 8840526, 1626266, 98976657, 83230759, 82434846 ####[facility] [address] [place] [address] Urea nitrogen [Mass/Vol] 25 mg/dL High 5-21 [facility] Comment on above: Performed By: #### 1 5424035, 9270584, 4085396, 2628204, 09680627, 2672085, 171202406, 9481132, 9820251, 64428443, 33897867, 67375674 ####[facility] [address] [place] [address] Urea nitrogen/Creatinin e [Mass ratio] 28 No Units High 10-20 [facility] Comment on above: Performed By: #### 1 8429470, 7763410, 1779944, 5326230, 16082934, 0007518, 130217615, 0748813, 0300581, 05551362, 56226721, 58398524 ####[facility] [address] [place] [address] Lipid Panelon 07-24-2022 Cholesterol [Mass/Vol] 167 mg/dL Normal 120-200 [facility] Comment on above: Performed By: #### 1 7898223, 8070426, 0496815, 6220906, 24823501, 1251454, 911158362, 4697034, 5394215, 85016166, 93432492, 48175844 ####[facility] [address] [place] [address] Cholesterol in HDL [Mass/Vol] 65 mg/dL Invalid Interpretation Code [facility] Comment on above: Result Comment: HDL > or equal to 60 mg/dL: Low cardiovascular risk HDL < 40 mg/dL : High cardiovascular risk Performed By: #### 1 2718593, 9011006, 2453261, 5924711, 43073711, 7815673, 554656821, 4043773, 9359384, 96764188, 61112240, 82387168 ####[facility] [address] [place] [address] Cholesterol in LDL [Mass/Vol] 72 mg/dL Normal <=129 [facility] Comment on above: Performed By: #### 1 6144349, 4984323, 3387981, 5367403, 42744315, 3139043, 214599107, 6075793, 7208471, 30242740, 47194585, 79471459 ####[facility] [address] [place] [address] Cholesterol in VLDL [Mass/Vol] 22 mg/dL Normal 7-40 [facility] Comment on above: Performed By: #### 1 3838725, 3907308, 5366101, 0820557, 83059496, 5154616, 219461918, 7984094, 0954645, 47588572, 99698610, 04524343 ####[facility] [address] [place] [address] Triglyceride [Mass/Vol] 112 mg/dL Normal <=149 [facility] Comment on above: Performed By: #### 1 8989087, 8073029, 1546108, 1137072, 04615118, 3438938, 475899024, 6857020, 1845993, 27675891, 59362077, 05327292 ####[facility] [address] [place] [address] TSH With T4fr Reflexon 07-24 TSH Qn 0.73 m[IU]/L Normal 0.34-5.60 [facility] Comment on above: Performed By: #### 1 3934178, 4294885, 5249761, 2261505, 69995679, 1758105, 002716303, 4744888, 4928579, 81095809, 47091610, 76785320 ####[facility] [address] [place] [address] Vitamin D 25 Hydroxyon 07-24 25-hydroxyvitamin D3 [Mass/Vol] 47.6 ng/mL Normal 30.0-100.0 [facility] Comment on above: Result Comment: Vit arredondo D deficiency has been defined as a level of serum 25-OH vitamin D less than 20 ng/mL (1,2) by the [place] [employer] and an Endocrine Society practice guideline. The Endocrine Society further defined vitamin D insufficiency as a level between 21 and 29 ng/mL (2). 1. IOM ([employer] [place] [employer]). 2010. Dietary reference intakes for calcium and D. [place]: The National Academies Press. 2. Svitlana MF, Melanie NC, Paras VANN, et al. Evaluation, treatment, and prevention of vitamin D deficiency: an Endocrine Society clinical practice guideline. JCEM. 2011 Sep; 96 (7):1911-30. Performed By: #### 1 8190103, 8826318, 4814236, 6538599, 14379365, 1220825, 525071400, 1453580, 6180924, 81924604, 74477428, 29205186 ####[facility] [address] [place] [address] eGFRon 07-24-2022 GFR/1.73 sq M.predicted among non-blacks MDRD (S/P/Bld) [Vol rate/Area] 68 mL/min/1.73 m2 Normal >=59 [facility] Comment on above: Order Comment: Order added by Discern Expert. Result Comment: Research Psychologist esperanza kidney disease could be indicated at eGFR's of less than 60 mL/min/1.73m2. Kidney failure is indicated at less than 15 mL/min/1.73m2. Performed By: #### 1 8961662, 8148093, 7241590, 4266097, 58095360, 5815552, 342301835, 2332805, 5003633, 90842120, 42147238, 27208090 ####[facility] [address] [place] [address] Lab Reportson 06-28-2022 Lab Reports [id number]:[address] [facility] Lab Reports [id number]:[address] [facility] C3 and C4 COMPLEMENTon 06-22 Complement C3, Serum 149 mg/dL Normal 82-167 [facility] Comment on above: Performed By: #### C ROMEO #### [facility] [address] [place] [address] Dr. Yaneth Walton Complement C4, Serum 31 mg/dL Normal 12-38 [facility] Comment on above: Performed By: #### C ROMEO #### [facility] [address] [address] [address] Yaneth Walton CBC AUTO DIFFon 06-21-2022 BASO # 0.0 103/ul Normal 0.0-0.1 [facility] Comment on above: Performed By: #### C BC #### [facility] [address] [address] [address] Yaneth Walton Basophils/100 WBC (Bld) 0.6 % Normal 0.2-2.0 [facility] Comment on above: Performed By: #### C BC #### [facility] [address] [place] [address] Dr. Yaneth Walton EO # 0.1 103/ul Normal 0.0-0.7 [facility] Comment on above: Performed By: #### C BC #### [facility] [address] [place] [address] Dr. Yaneth Walton Eosinophils/100 WBC (Bld) 2.8 % Normal 0.9-7.0 [facility] Comment on above: Performed By: #### C BC #### [facility] [address] [place] [address] Dr. Yaneth Walton Erythrocyte distribution width (RBC) [Ratio] 11.9 % Normal 11.0-15.0 [facility] Comment on above: Performed By: #### C BC #### [facility] [address] [place] [address] Dr. Yaneth Walton Hematocrit (Bld) [Volume fraction] 40.3 % Normal 36.0-48.0 [facility] Comment on above: Performed By: #### C BC #### [facility] [address] [place] [address] Dr. Yaneth Walton Hemoglobin (Bld) [Mass/Vol] 13.3 g/dL Normal 12.0-16.0 [facility] Comment on above: Performed By: #### C BC #### [facility] [address] [place] [address] Dr. Yaneth Walton IG # 0.01 10e3/ul Normal 0.00-0.03 [facility] Comment on above: Performed By: #### C BC #### [facility] [address] [place] [address] Dr. Yaneth Walton IG % 0.2 % Normal 0.0-0.5 [facility] Comment on above: Performed By: #### C BC #### [facility] [address] [place] [address] Dr. Yaneth Walton LYMPH # 1.0 103/ul Critically low 1.2-3.8 [facility] Comment on above: Performed By: #### C BC #### [facility] [address] [place] [address] Dr. Yaneth Walton Lymphocytes/100 WBC (Bld) 20.9 % Normal 20.5-60.0 [facility] Comment on above: Performed By: #### C BC #### [facility] [address] [place] [address] Dr. Yaneth Walton MANUAL DIFF REQ NO Normal [facility] Comment on above: Performed By: #### C BC #### [facility] [address] [place] [address] Dr. Yaneth Walton MCH (RBC) [Entitic mass] 32.0 pg Normal 26.7-34.0 [facility] Comment on above: Performed By: #### C BC #### [facility] [address] [place] [address] Dr. Yaneth Walton MCHC (RBC) [Mass/Vol] 33.0 g/dL Normal 29.9-35.2 [facility] Comment on above: Performed By: #### C BC #### [facility] [address] [place] [address] Dr. Yaneth Walton MCV (RBC) [Entitic vol] 97.1 fL Normal 81.0-99.0 [facility] Comment on above: Performed By: #### C BC #### [facility] [address] [place] [address] Dr. Yaneth Walton MONO # 0.4 103/ul Normal 0.3-0.8 [facility] Comment on above: Performed By: #### C BC #### [facility] [address] [place] [address] Dr. Yaneth Walton Monocytes/100 WBC (Bld) 8.4 % Normal 1.7-12.0 [facility] Comment on above: Performed By: #### C BC #### [facility] [address] [place] [address] Dr. Yaneth Walton NEUT # 3.1 103/ul Normal 1.4-6.5 [facility] Comment on above: Performed By: #### C BC #### [facility] [address] [address] [address] Yaneth Walton Neutrophils/100 WBC (Bld) 67.1 % Normal 43.0-75.0 [facility] Comment on above: Performed By: #### C BC #### [facility] [address] [address] [address] Yaneth Walton Platelet mean volume (Bld) [Entitic vol] 10.7 fL Normal 9.5-13.5 [facility] Comment on above: Performed By: #### C BC #### [facility] [address] [address] [address] Yaneth Walton PLT 213 103/ul Normal 150-450 [facility] Comment on above: Performed By: #### C BC #### [facility] [address] [address] [address] Yaneth Walton RBC 4.15 106/ul Critically low 4.20-5.40 [facility] Comment on above: Performed By: #### C BC #### [facility] [address] [address] [address] Yaneth Walton WBC 4.7 103/ul Normal 4.0-11.0 [facility] Comment on above: Performed By: #### C BC #### [facility] [address] [place] [address] Dr. Yaneth Walton CREATININEon 06-21-2022 Creatinine [Mass/Vol] 0.82 mg/dL Normal 0.55-1.02 [facility] Comment on above: Performed By: #### C ROMEO #### [facility] [address] [address] [address] Yaneth Walton EGFR-AF JORDANIAN >60 Normal >=60 [facility] Comment on above: Performed By: #### C ROMEO #### [facility] [address] [address] [address] Yaneth Walton EGFR-NON AF JORDANIAN >60 Normal >=60 [facility] Comment on above: Performed By: #### C ROMEO #### [facility] [address] [address] [address] Yaneth Walton SED RATE WESTERGRENon 2022 SED RATE 7 mm/hr Normal <=30 [facility] Comment on above: Performed By: #### C ROMEO #### [facility] [address] [address] [address] Yaneth Walton UA RANDOM W/MICROSCOPICon BACTERIA TRACE Abnormal NONE SEEN [facility] Comment on above: Performed By: #### C ROMEO #### [facility] [address] [address] [address] Yaneth Walton Bilirubin Ql (U) Negative Normal NEGATIVE [facility] Comment on above: Performed By: #### C ROMEO #### [facility] [address] [place] [address] Dr. Yaneth Walton CAST NONE SEEN Normal NONE SEEN [facility] Comment on above: Performed By: #### C ROMEO #### [facility] [address] [address] [address] Yaneth Walton Clarity (U) CLEAR Normal CLEAR [facility] Comment on above: Performed By: #### C ROMEO #### [facility] [address] [place] [address] Dr. Yaneth Walton Color (U) LT. YELLOW Normal YELLOW [facility] Comment on above: Performed By: #### C ROMEO #### [facility] [address] [place] [address] Dr. Yaneth Walton Crystals LM Nom (Urine sed) NONE SEEN Normal NONE SEEN [facility] Comment on above: Performed By: #### C ROMEO #### [facility] [address] [place] [address] Dr. Yaneth Walton Epithelial cells LM Ql (Urine sed) RARE Normal NONE SEEN /RARE [facility] Comment on above: Performed By: #### C ROMEO #### [facility] [address] [place] [address] Dr. Yaneth Walton Glucose Ql (U) Negative Normal NEGATIVE [facility] Comment on above: Performed By: #### C ROMEO #### [facility] [address] [place] [address] Dr. Yaneth Walton Hemoglobin Ql (U) Negative Normal NEGATIVE [facility] Comment on above: Performed By: #### C ROMEO #### [facility] [address] [place] [address] Dr. Yaneth Walotn Ketones Ql (U) Negative Normal NEGATIVE [facility] Comment on above: Performed By: #### C ROMEO #### [facility] [address] [place] [address] Dr. Yaneth Walton LEUKOCYTES LARGE Abnormal NEGATIVE [facility] Comment on above: Performed By: #### C ROMEO #### [facility] [address] [place] [address] Dr. Yaneth Walton MUCOUS NONE SEEN Normal NONE SEEN [facility] Comment on above: Performed By: #### C ROMEO #### [facility] [address] [place] [address] Dr. Yaneth Walton Nitrite Ql (U) Negative Normal NEGATIVE [facility] Comment on above: Performed By: #### C ROMEO #### [facility] [address] [place] [address] Dr. Yaneth Walton pH (U) 6.0 [pH] Normal 5-9 [facility] Comment on above: Performed By: #### C ROMEO #### [facility] [address] [place] [address] Dr. Yaneth Walton RBC 0-2 Normal 0-2 [facility] Comment on above: Performed By: #### C ROMEO #### [facility] [address] [place] [address] Dr. Yaneth Walton SPEC GRAVITY <=1.005 Abnormal 1.005-<=1.02 5 [facility] Comment on above: Performed By: #### C ROMEO #### [facility] [address] [place] [address] Dr. Yaneth Walton UA PROTEIN Negative Normal NEGATIVE/ TRACE [facility] Comment on above: Performed By: #### C ROMEO #### [facility] [address] [place] [address] Dr. Yaneth Walton Urobilinogen Qn (U) 0.2 {Ruth Ann'U}/dL Normal 0.2 - 1.0 [facility] Comment on above: Performed By: #### C ROMEO #### [facility] [address] [place], [place] [address] Dr. Yaneth Walton WBC 10-20 Abnormal NONE SEEN [facility] Comment on above: Performed By: #### C ROMEO #### [facility] [address] [place], [place] [address] Dr. Yaneth Walton MRI LSPINE WO CONon 02-11-20 22 MRI LSPINE WO CON EXAMINATION: MRI LSP INE WO CON HISTORY: Arthritis COMPARISON: No relevant comparison available. TECHNIQUE: A variety of imaging planes and parameters were utilized for visualization of suspected pathology. FINDINGS: For the purposes of numbering, sagittal T2 image # 9 extends from the T10-T11 vertebral body superiorly to the S3-S4 level inferiorly. PARASPINAL AREA: Normal with no visible mass. BONES: Normal alignment with no acute fracture or spondylolisthesis. Area of signal abnormality T12 vertebral body likely a hemangioma. Moderate diffuse degenerative spondylosis. CORD/CAUDA EQUINA: Normal caliber, contour, and signal intensity. DISC LEVELS: 12-L1: Early degenerative disc disease is present without focal protrusion or neural impingement. L1-L2: Moderate disc space narrowing and disc desiccation. Mild diffuse disc bulge. No central or foraminal stenosis L2-L3: Moderate to severe disc space narrowing with endplate sclerosis right greater than left with Modic 2 changes. Moderate diffuse disc/osteophyte complex and ligamentum flavum hypertrophy and facet osteoarthropathy. Moderate right and mild left foraminal stenosis L3-L4: Mild diffuse disc space narrowing. Moderate diffuse disc/osteophyte complex and ligamentum flavum hypertrophy and facet osteoarthropathy. Moderate to severe central canal stenosis axial image #14. Moderate bilateral foraminal stenosis left greater than right L4-L5: Mild to moderate disc space narrowing with endplate sclerosis. Mild to moderate diffuse disc/osteophyte complex and ligamentum flavum hypertrophy and facet osteoarthropathy. Mild to moderate central canal stenosis. Mild right and moderate left foraminal L5-S1: Mild disc space narrowing. Posterior disc protrusion. Bilateral facet osteoarthropathy. No central canal or right foraminal stenosis. Moderate narrowing of the left neural foramen IMPRESSION: Moderate to severe diffuse degenerative changes resulting in central and foraminal stenosis at multiple levels, most significant at L4-L5 Electronically authenticated by: HEATHER BECKER Date: 2022-02-10 14:50 Normal [facility] XR KNEE SONY 4V or >on 2021 XR KNEE SONY 4V or > EXAMINATION: XR KNEE SONY 4V or > HISTORY: Pain of bilateral knee joints COMPARISON: No relevant comparison available. FINDINGS: RIGHT FINDINGS: BONES: No acute fracture or dislocation. Minimal enthesopathic spurring at the quadriceps insertion of the patella SOFT TISSUES: Negative. No visible soft tissue swelling. OTHER: Negative. LEFT FINDINGS: BONES: Mild osteoarthropathy of the medial compartment. Moderate to severe osteoarthropathy of the anterior compartment likely subchondral degenerative changes of the patella. Mild enthesopathic spurring of the patella at the quadriceps insertion. Extensive chondrocalcinosis SOFT TISSUES: Negative. No visible soft tissue swelling. OTHER: Negative. IMPRESSION: RIGHT CONCLUSION: No significant abnormality LEFT CONCLUSION: Moderate degenerative changes of the anterior compartment Electronically authenticated by: HEATHER BECKER Date: 2022-02-03 17:51 Normal [facility] XR LSPINE MIN 4 VIEWSon XR LSPINE MIN 4 VIEWS EXAMINATION: XR LSPINE MIN 4 VIEWS HISTORY: Low back pain COMPARISON: No relevant comparison available. FINDINGS: BONES: Normal alignment with no acute fracture or spondylolisthesis. Moderate to severe degenerative spondylosis and facet osteoarthropathy DISC SPACES: Moderate to severe multilevel disc space narrowing PARASPINOUS: Negative. No paraspinous abnormality is seen. OTHER: Negative. IMPRESSION: Moderate to severe degenerative changes Electronically authenticated by: HEATHER BECKER Date: 2022-02-03 17:54 Normal [facility] C3 and C4 COMPLEMENTon 12-22 Complement C3, Serum 155 mg/dL Normal 82-167 [facility] Comment on above: Performed By: #### C SUITE #### [facility] [address] [address] [address] Yaneth Walton Complement C4, Serum 35 mg/dL Normal 12-38 [facility] Comment on above: Performed By: #### C SUITE #### [facility] [address] [address] [address] Yaneth Walton CBC AUTO DIFFon 12-21-2021 BASO # 0.1 103/ul Normal 0.0-0.1 [facility] Comment on above: Performed By: #### C BC #### [facility] [address] [place] [address] Dr. Yaneth Walton Basophils/100 WBC (Bld) 0.9 % Normal 0.2-2.0 [facility] Comment on above: Performed By: #### C BC #### [facility] [address] [place] [address] Dr. Yaneth Walton EO # 0.1 103/ul Normal 0.0-0.7 [facility] Comment on above: Performed By: #### C BC #### [facility] [address] [place] [address] Dr. Yaneth Walton Eosinophils/100 WBC (Bld) 2.2 % Normal 0.9-7.0 [facility] Comment on above: Performed By: #### C BC #### [facility] [address] [place] [address] Dr. Yaneth Walton Erythrocyte distribution width (RBC) [Ratio] 13.0 % Normal 11.0-15.0 [facility] Comment on above: Performed By: #### C BC #### [facility] [address] [place] [address] Dr. Yaneth Walton Hematocrit (Bld) [Volume fraction] 42.0 % Normal 36.0-48.0 [facility] Comment on above: Performed By: #### C BC #### [facility] [address] [place] [address] Dr. Yaneth Walton Hemoglobin (Bld) [Mass/Vol] 13.4 g/dL Normal 12.0-16.0 [facility] Comment on above: Performed By: #### C BC #### [facility] [address] [place] [address] Dr. Yaneth Walton IG # 0.01 10e3/ul Normal 0.00-0.03 [facility] Comment on above: Performed By: #### C BC #### [facility] [address] [place] [address] Dr. Yaneth Walton IG % 0.2 % Normal 0.0-0.5 [facility] Comment on above: Performed By: #### C BC #### [facility] [address] [place] [address] Dr. Yaneth Walton LYMPH # 1.0 103/ul Critically low 1.2-3.8 [facility] Comment on above: Performed By: #### C BC #### [facility] [address] [place] [address] Dr. Yaneth Walton Lymphocytes/100 WBC (Bld) 18.0 % Critically low 20.5-60.0 [facility] Comment on above: Performed By: #### C BC #### [facility] [address] [place] [address] Dr. Yaneth Walton MANUAL DIFF REQ NO Normal [facility] Comment on above: Performed By: #### C BC #### [facility] [address] [place] [address] Dr. Yaneth Walton MCH (RBC) [Entitic mass] 30.5 pg Normal 26.7-34.0 [facility] Comment on above: Performed By: #### C BC #### [facility] [address] [place] [address] Dr. Yaneth Walton MCHC (RBC) [Mass/Vol] 31.9 g/dL Normal 29.9-35.2 [facility] Comment on above: Performed By: #### C BC #### [facility] [address] [place] [address] Dr. Yaneth Walton MCV (RBC) [Entitic vol] 95.7 fL Normal 81.0-99.0 [facility] Comment on above: Performed By: #### C BC #### [facility] [address] [place] [address] Dr. Yaneth Walton MONO # 0.5 103/ul Normal 0.3-0.8 [facility] Comment on above: Performed By: #### C BC #### [facility] [address] [place] [address] Dr. Yaneth Walton Monocytes/100 WBC (Bld) 8.7 % Normal 1.7-12.0 [facility] Comment on above: Performed By: #### C BC #### [facility] [address] [place] [address] Dr. Yaneth Walton NEUT # 3.8 103/ul Normal 1.4-6.5 [facility] Comment on above: Performed By: #### C BC #### [facility] [address] [place] [address] Dr. Yaneth Walton Neutrophils/100 WBC (Bld) 70.0 % Normal 43.0-75.0 [facility] Comment on above: Performed By: #### C BC #### [facility] [address] [place] [address] Dr. Yaneth Walton Platelet mean volume (Bld) [Entitic vol] 10.8 fL Normal 9.5-13.5 [facility] Comment on above: Performed By: #### C BC #### [facility] [address] [place] [address] Dr. Yaneth Walton PLT 213 103/ul Normal 150-450 [facility] Comment on above: Performed By: #### C BC #### [facility] [address] [place] [address] Dr. Yaneth Walton RBC 4.39 106/ul Normal 4.20-5.40 [facility] Comment on above: Performed By: #### C BC #### [facility] [address] [place] [address] Dr. Yaneth Walton WBC 5.4 103/ul Normal 4.0-11.0 [facility] Comment on above: Performed By: #### C BC #### [facility] [address] [place] [address] Dr. Yaneth Walton CREATININEon 12-21-2021 Creatinine [Mass/Vol] 0.87 mg/dL Normal 0.55-1.02 [facility] Comment on above: Performed By: #### C ROMEO #### [facility] [address] [place] [address] Dr. Yaneth Walton EGFR-AF JORDANIAN >60 Normal >=60 [facility] Comment on above: Performed By: #### C ROMEO #### [facility] [address] [place] [address] Dr. Yaneth Walton EGFR-NON AF JORDANIAN >60 Normal >=60 [facility] Comment on above: Performed By: #### C ROMEO #### [facility] [address] [place] [address] Dr. Yaneth Walton SED RATE WESTERGRENon 2021 SED RATE 10 mm/hr Normal <=30 [facility] Comment on above: Performed By: #### S EDR #### [facility] [address] [place] [address] Dr. Yaneth Walton UA RANDOM W/MICROSCOPICon BACTERIA NONE SEEN Normal NONE SEEN [facility] Comment on above: Performed By: #### C ROMEO #### [facility] [address] [place] [address] Dr. Yaneth Walton Bilirubin Ql (U) Negative Normal NEGATIVE [facility] Comment on above: Performed By: #### C ROMEO #### [facility] [address] [place] [address] Dr. Yaneth Walton CAST NONE SEEN Normal NONE SEEN [facility] Comment on above: Performed By: #### C ROMEO #### [facility] [address] [place] [address] Dr. Yaneth Walton Clarity (U) CLEAR Normal CLEAR [facility] Comment on above: Performed By: #### C ROMEO #### [facility] [address] [place] [address] Dr. Yaneth Walton Color (U) LT. YELLOW Normal YELLOW [facility] Comment on above: Performed By: #### C ROMEO #### [facility] [address] [place] [address] Dr. Yaneth Walton Crystals LM Nom (Urine sed) NONE SEEN Normal NONE SEEN [facility] Comment on above: Performed By: #### C ROMEO #### [facility] [address] [place] [address] Dr. Yaneth Walton Epithelial cells LM Ql (Urine sed) FEW Abnormal NONE SEEN /RARE [facility] Comment on above: Performed By: #### C ROMEO #### [facility] [address] [place] [address] Dr. Yaneth Walton Glucose Ql (U) Negative Normal NEGATIVE [facility] Comment on above: Performed By: #### C ROMEO #### [facility] [address] [place] [address] Dr. Yaneth Walton Hemoglobin Ql (U) Negative Normal NEGATIVE [facility] Comment on above: Performed By: #### C ROMEO #### [facility] [address] [place] [address] Dr. Yaneth Walton Ketones Ql (U) Negative Normal NEGATIVE [facility] Comment on above: Performed By: #### C ROMEO #### [facility] [address] [place] [address] Dr. Yaneth Walton LEUKOCYTES TRACE Abnormal NEGATIVE [facility] Comment on above: Performed By: #### C ROMEO #### [facility] [address] [place] [address] Dr. Yaneth Walton MUCOUS NONE SEEN Normal NONE SEEN [facility] Comment on above: Performed By: #### C ROMEO #### [facility] [address] [place] [address] Dr. Yaneth Walton Nitrite Ql (U) Negative Normal NEGATIVE [facility] Comment on above: Performed By: #### C ROMEO #### [facility] [address] [place] [address] Dr. Yaneth Walton pH (U) 6.0 [pH] Normal 5-9 [facility] Comment on above: Performed By: #### C ROMEO #### [facility] [address] [place] [address] Dr. Yaneth Walton RBC NONE SEEN Abnormal 0-2 [facility] Comment on above: Performed By: #### C ROMEO #### [facility] [address] [place] [address] Dr. Yaneth Walton SPEC GRAVITY 1.010 Normal 1.005-<=1.02 5 [facility] Comment on above: Performed By: #### C ROMEO #### [facility] [address] [address] [address] Yaneth Walton UA PROTEIN Negative Normal NEGATIVE/ TRACE [facility] Comment on above: Performed By: #### C ROMEO #### [facility] [address] [place] [address] Dr. Yaneth Walton Urobilinogen Qn (U) 0.2 {Ruth Ann'U}/dL Normal 0.2 - 1.0 [facility] Comment on above: Performed By: #### C ROMEO #### [facility] [address] [place] [address] Dr. Yaneth Walton WBC 0-2 Abnormal NONE SEEN [facility] Comment on above: Performed By: #### C ROMEO #### [facility] [address] [place] [address] Dr. Yaneth Walton PTH INTACTon 08-20-2021 PTH, Intact 44 pg/mL Normal 15-65 [facility] Comment on above: Performed By: #### B ETA2M #### [facility] [address] [place] [address] Dr. Yaneth Walton FREE T3on 08-19-2021 FREE T3 2.44 pg/mlL Normal 2.18-3.98 [facility] Comment on above: Performed By: #### B ETA2M #### [facility] [address] [place] [address] Dr. Yaneth Walton FREE T4on 08-19-2021 Free T4 [Mass/Vol] 1.11 ng/dL Normal 0.76-1.46 [facility] Comment on above: Performed By: #### B ETA2M #### [facility] [address] [place] [address] Dr. Yaneth Walton LIPID PROFILEon 08-19-2021 CHOL-HDL RATIO NORM SEE BELOW Normal [facility] Comment on above: Result Comment: 3.3 - 4.4 LOW RISK 4.4 - 7.1 AVERAGE RISK 7.1 - 11.0 MODERATE RISK >11.0 HIGH RISK Performed By: #### C ROMEO #### [facility] [address] [place] [address] Dr. Yaneth Walton Cholesterol [Mass/Vol] 180 mg/dL Normal <=200 [facility] Comment on above: Performed By: #### C ROMEO #### [facility] [address] [address] [address] Yaneth Walton Cholesterol in HDL [Mass/Vol] 76 mg/dL Critically high 40-60 [facility] Comment on above: Performed By: #### C ROMEO #### [facility] [address] [address] [address] Yaneth Walton Cholesterol in LDL [Mass/Vol] 92.6 mg/dL Normal [facility] Comment on above: Performed By: #### C ROMEO #### [facility] [address] [address] [address] Yaneth Walton Cholesterol.total/ Cholesterol in HDL [Mass ratio] 2.4 {ratio} Normal [facility] Comment on above: Performed By: #### C ROMEO #### [facility] [address] [address] [address] Yaneth Walton HDL NORMAL > or = 60 mg/dl - LO W CARDIOVASCULAR RISK <40 mg/dl - HIGH CARDIOVASCULAR RISK Normal [facility] Comment on above: Performed By: #### C ROMEO #### [facility] [address] [address] [address] Yaneth Walton LDL CALC NORMAL SEE BELOW Normal [facility] Comment on above: Result Comment: <100 mg/dl OPTIMAL 100 - 129 mg/dl NEAR OR ABOVE OPTIMAL 130 - 159 mg/dl BORDERLINE HIGH 160 - 189 mg/dl HIGH >190 mg/dl VERY HIGH Performed By: #### C ROMEO #### [facility] [address] [address] [address] Yaneth Walton Triglyceride [Mass/Vol] 57 mg/dL Normal <=150 [facility] Comment on above: Performed By: #### C ROMEO #### [facility] [address] [address] [address] Yaneth Walton VLDL CALC 11.4 mg/dL Normal [facility] Comment on above: Performed By: #### C ROMEO #### [facility] [id number] Yaneth Walton MG MAMM SCREEN 3D SONY CADon 08-19-2021 MG MAMM SCREEN 3D SONY CAD Patient: MISTY PEREZ Exam Date: 08/19/2021 : 1950 Gender:F Ordering : DR CAROL KENNEDY . Admission #: [id number] Family : Order #: [id number] CLICK HERE TO VIEW EXAM RADIOLOGY REPORT PROCEDURE: MAMMOGRAM SCREENING 3D BILATERAL CAD COMPARISON: MG MAMM SCREEN 3D SONY CAD, 08/17/2020. MG MAMM SCREEN SONY W CAD, 01/02/2019. INDICATIONS: Screening mammography Calculator Name NCI Breast Cancer Risk Assessment Tool 5 Year Breast Cancer Risk 1.90% Lifetime Breast Cancer Risk 5.60% Personal Breast Cancer No Personal Ovarian Cancer No Treatments None Family Cancers Father with pancreatic cancer at age 81; Grandmother-maternal with colon cancer at age 70. LOCATION: [facility] BREAST COMPOSITION: Heterogeneously dense,which may obscure small masses. FINDINGS: DIAGNOSTIC CATEGORY 2--BENIGN FINDING: RIGHT BREAST: No significant suspicious finding. Scattered benign-appearing calcifications are present. No significant change has occurred. LEFT BREAST: No significant suspicious finding. Scattered benign-appearing lymph nodes are present. Scattered benign-appearing calcifications are present. No significant change has occurred. RECOMMENDATIONS: ROUTINE MAMMOGRAM AND CLINICAL EVALUATION IN 12 MONTHS. PLEASE NOTE: A NORMAL MAMMOGRAM DOES NOT EXCLUDE THE POSSIBILITY OF BREAST CANCER. A CLINICALLY SUSPICIOUS PALPABLE LUMP SHOULD BE BIOPSIED. Dictated by: Jamal Acosta M.D. on 08/19/2021 at 12:03 Approved by: Jamal Acosta M.D. on 08/19/2021 at 12:07 Normal [facility] TSHon 08-19-2021 TSH 0.181 uIU/mL Critically low 0.358-3.740 [facility] Comment on above: Performed By: #### B ETA2M #### [facility] [id number] Yaneth Walton VITAMIN D 25 OHon 08-19-2021 VIT D 25-OH 51.8 ng/mL Normal [facility] Comment on above: Performed By: #### B ETA2M #### [facility] [address] [place], [place] [address] Dr. Yaneth Walton VIT D RANGES SEE BELOW Normal [facility] Comment on above: Result Comment: <20 ng/mL Vit D deficient 20 - <30 ng/mL Vit D insufficient 30 - 100 ng/mL Vit D sufficient >100 ng/mL Potential Toxicity Performed By: #### B ETA2M #### [facility] [address] [place], [place] [address] Dr. Yaneth Walton [facility] Surgical Pathology Depar tmenton 08-04-2021 [facility] Surgical Pathology Department Name MISTY PERZE Pathologist: TONYA CARRERA DMD Date of Procedure: 08/04/2021 Date Received: 08/08/2021 Date Reported 08/12/2021 Submitting Physician: LIZETH LAYTON DDS Location: [facility] Other External # FINAL DIAGNOSIS A. ATTACHED GINGIVA OF TEETH #12-13, EXCISION: -- MILD EPITHELIAL DYSPLASIA (MULTIPLE LEVELS EXAMINED) ICD-10/CPT: K13.21/78335 Electronically Signed Out By TONYA CARRERA DMD/ALFONSO By the signature on this report, the individual or group listed as making the Final Interpretation/Diagnosis certifies that they have reviewed this case. Diagnostic interpretation performed at [facility] [address] [facility] [address] Microscopic Description: The sections show a fragment of squamous mucosa notable for the presence of differentiated dysplasia. This is characterized by compact hyperkeratosis with confluent hypergranulosis and slightly increased nuclear to cytoplasmic ratio and an otherwise well differentiated epithelium. The lamina propria consists of densely collagenous fibrovascular tissue with a lymphocytic host response inducing keratinocyte apoptosis, and there is no evidence of invasive carcinoma. Clinical History: The lesion was excised from the attached mucosa of teeth #12-13 where it measures 0.7 x 0.5 cm and is white. Clinical impression: Dysplasia. Specimens Submitted As: A: MUCOSA #12-13 Gross Description: Received in formalin, labeled with the patient's name and hospital number and #[id number]. , is a portion of mucosal covered soft tissue measuring 1.4 x 0.4 x 0.2 cm. The resection margin is inked. The specimen is bisected and entirely submitted in one cassette. RCC rcc/08/08/2021 [facility] Department of Pathology [address] [place] [address] Normal [facility] Comment on above: Performed By: #### U HCS #### [facility] Surgical Pathology Department [address] [facility] [address] IMMUNOFIXATION (MG), SERUMo n 07-11-2021 IMMUNOFIXATION RESULT Comment Abnormal [facility] Comment on above: Result Comment: Immu nofixation shows IgG monoclonal protein with lambda light chain specificity. Performed By: #### C ROMEO #### [facility] [address] [address] [address] Yaneth Walton Immunoglobulin A, Qn, Serum 113 mg/dL Normal 87-352 [facility] Comment on above: Performed By: #### C ROMEO #### [facility] [address] [address] [address] Yaneth Walton Immunoglobulin G, Qn, Serum 1031 mg/dL Normal [id number] [facility] Comment on above: Performed By: #### C ROMEO #### [facility] [address] [address] [address] Yaneth Walton Immunoglobulin M, Qn, Serum 42 mg/dL Normal 26-217 [facility] Comment on above: Performed By: #### C ROMEO #### [facility] [address] [address] [address] Yaneth Walton BETA-2 MICROGLOBINon 022 Beta-2 Microglobulin, Serum 2.2 mg/L Normal 0.6-2.4 [facility] Comment on above: Result Comment: [facility] Immulite 2000 Immunochemiluminometric assay (ICMA) . Values obtained with different assay methods or kits cannot be used interchangeably. Results cannot be interpreted as absolute evidence of the presence or absence of malignant disease. Performed By: #### B ETA2M #### [facility] [address] [address] [address] Yaneth Walton FREE LIGHT CHAINS PLUS RATIO on 07-09-2021 Free [place] Lt Chains,S 34.7 mg/L Critically high 3.3-19.4 [facility] Comment on above: Performed By: #### F REELIT #### [facility] [address] [place] [address] Dr. Yaneth Walton Free Lambda Lt Chains,S 50.1 mg/L Critically high 5.7-26.3 [facility] Comment on above: Performed By: #### F REELIT #### [facility] [address] [place] [address] Dr. Yaneth Walton [place]/Lambda Ratio, S 0.69 Normal 0.26-1.65 [facility] Comment on above: Performed By: #### F REELIT #### [facility] [address] [place] [address] Dr. Yaneth Walton IMMUNOGLOBULINS IGA/IGM/IGG QUANTITATIVEon 07-08-2021 Immunoglobulin A, Qn, Serum 111 mg/dL Normal 87-352 [facility] Comment on above: Performed By: #### I MMUNGL #### [facility] [address] [place] [address] Dr. Yaneth Walton Immunoglobulin G, Qn, Serum 1037 mg/dL Normal [id number] [facility] Comment on above: Performed By: #### I MMUNGL #### [facility] [address] [place] [address] Dr. Yaneth Walton Immunoglobulin M, Qn, Serum 44 mg/dL Normal 26-217 [facility] Comment on above: Performed By: #### I MMUNGL #### [facility] [address] [place] [address] Dr. Yaneth Walton CBC AUTO DIFFon 07-07-2021 BASO # 0.0 103/ul Normal 0.0-0.1 [facility] Comment on above: Performed By: #### C BC #### [facility] [address] [place] [address] Dr. Yaneth Walton Basophils/100 WBC (Bld) 0.7 % Normal 0.2-2.0 [facility] Comment on above: Performed By: #### C BC #### [facility] [address] [place] [address] Dr. Yaneth Walton EO # 0.2 103/ul Normal 0.0-0.7 [facility] Comment on above: Performed By: #### C BC #### [facility] [address] [place] [address] Dr. Yaneth Walton Eosinophils/100 WBC (Bld) 2.9 % Normal 0.9-7.0 [facility] Comment on above: Performed By: #### C BC #### [facility] [address] [place] [address] Dr. Yaneth Walton Erythrocyte distribution width (RBC) [Ratio] 12.9 % Normal 11.0-15.0 [facility] Comment on above: Performed By: #### C BC #### [facility] [address] [place] [address] Dr. Yaneth Walton Hematocrit (Bld) [Volume fraction] 43.1 % Normal 36.0-48.0 [facility] Comment on above: Performed By: #### C BC #### [facility] [address] [place] [address] Dr. Yaneth Walton Hemoglobin (Bld) [Mass/Vol] 13.8 g/dL Normal 12.0-16.0 [facility] Comment on above: Performed By: #### C BC #### [facility] [address] [place] [address] Dr. Yaneth Walton IG # 0.02 10e3/ul Normal 0.00-0.03 [facility] Comment on above: Performed By: #### C BC #### [facility] [address] [place] [address] Dr. Yaneth Walton IG % 0.4 % Normal 0.0-0.5 [facility] Comment on above: Performed By: #### C BC #### [facility] [address] [place] [address] Dr. Yaneth Walton LYMPH # 1.3 103/ul Normal 1.2-3.8 [facility] Comment on above: Performed By: #### C BC #### [facility] [address] [place] [address] Dr. Yaneth Walton Lymphocytes/100 WBC (Bld) 22.9 % Normal 20.5-60.0 [facility] Comment on above: Performed By: #### C BC #### [facility] [address] [place] [address] Dr. Yaneth Walton MANUAL DIFF REQ NO Normal [facility] Comment on above: Performed By: #### C BC #### [facility] [address] [place] [address] Dr. Yaneth Walton MCH (RBC) [Entitic mass] 30.3 pg Normal 26.7-34.0 [facility] Comment on above: Performed By: #### C BC #### [facility] [address] [place] [address] Dr. Yaneth Walton MCHC (RBC) [Mass/Vol] 32.0 g/dL Normal 29.9-35.2 [facility] Comment on above: Performed By: #### C BC #### [facility] [address] [place] [address] Dr. Yaneth Walton MCV (RBC) [Entitic vol] 94.5 fL Normal 81.0-99.0 [facility] [facility] Comment on above: Performed By: #### C BC #### [facility] [address] [place] [address] Dr. Yaneth Walton MONO # 0.5 103/ul Normal 0.3-0.8 [facility] Comment on above: Performed By: #### C BC #### [facility] [address] [place] [address] Dr. Yaneth Walton Monocytes/100 WBC (Bld) 8.7 % Normal 1.7-12.0 [facility] Comment on above: Performed By: #### C BC #### [facility] [address] [place] [address] Dr. Yaneth Walton NEUT # 3.5 103/ul Normal 1.4-6.5 [facility] Comment on above: Performed By: #### C BC #### [facility] [address] [place] [address] Dr. Yaneth Walton Neutrophils/100 WBC (Bld) 64.4 % Normal 43.0-75.0 [facility] Comment on above: Performed By: #### C BC #### [facility] [address] [address] [address] Yaneth Walton Platelet mean volume (Bld) [Entitic vol] 11.0 fL Normal 9.5-13.5 [facility] Comment on above: Performed By: #### C BC #### [facility] [address] [place] [address] Dr. Yaneth Walton PLT 206 103/ul Normal 150-450 [facility] Comment on above: Performed By: #### C BC #### [facility] [address] [place] [address] Dr. Yaneth Walton RBC 4.56 106/ul Normal 4.20-5.40 [facility] Comment on above: Performed By: #### C BC #### [facility] [address] [place] [address] Dr. Yaneth Walton WBC 5.5 103/ul Normal 4.0-11.0 [facility] Comment on above: Performed By: #### C BC #### [facility] [address] [place] [address] Dr. Yaneth Walton PROF 14(COMP METB)on 022 Albumin [Mass/Vol] 3.7 g/dL Normal 3.4-5.0 [facility] Comment on above: Performed By: #### B ETA2M #### [facility] [address] [place] [address] Dr. Yaneth Walton Albumin/Globulin [Mass ratio] 1.0 {ratio} Normal [facility] Comment on above: Performed By: #### B ETA2M #### [facility] [address] [place] [address] Dr. Yaneth Walton ALP [Catalytic activity/Vol] 103 U/L Normal 46-116 [facility] Comment on above: Performed By: #### B ETA2M #### [facility] [address] [place] [address] Dr. Yaneth Walton ALT [Catalytic activity/Vol] 28 U/L Normal 14-59 [facility] Comment on above: Performed By: #### B ETA2M #### [facility] [address] [address] [address] Yaneth Walton Anion gap [Moles/Vol] 12.0 mmol/L Normal [facility] Comment on above: Performed By: #### B ETA2M #### [facility] [address] [address] [address] Yaneth Walton AST [Catalytic activity/Vol] 26 U/L Normal 15-37 [facility] Comment on above: Performed By: #### B ETA2M #### [facility] [address] [address] [address] Yaneth Walton Bilirubin [Mass/Vol] 0.7 mg/dL Normal 0.2-1.0 [facility] Comment on above: Performed By: #### B ETA2M #### [facility] [address] [place] [address] Dr. Yaneth Walton Calcium [Mass/Vol] 8.6 mg/dL Normal 8.5-10.1 [facility] Comment on above: Performed By: #### B ETA2M #### [facility] [address] [place] [address] Dr. Yaneth Walton Chloride [Moles/Vol] 103 mmol/L Normal 98-107 [facility] Comment on above: Performed By: #### B ETA2M #### [facility] [address] [place] [address] Dr. Yaneth Walton CO2 [Moles/Vol] 28.7 mmol/L Normal 21.0-32.0 [facility] Comment on above: Performed By: #### B ETA2M #### [facility] [address] [place] [address] Dr. Yaneth Walton Creatinine [Mass/Vol] 0.84 mg/dL Normal 0.55-1.02 [facility] Comment on above: Performed By: #### B ETA2M #### [facility] [address] [place] [address] Dr. Yaneth Walton EGFR-AF JORDANIAN >60 Normal >=60 [facility] Comment on above: Performed By: #### B ETA2M #### [facility] [address] [address] [address] Yaneth Walton EGFR-NON AF JORDANIAN >60 Normal >=60 [facility] Comment on above: Performed By: #### B ETA2M #### [facility] [address] [address] [address] Yaneth Walton Globulin (S) [Mass/Vol] 3.7 g/dL Normal [facility] Comment on above: Performed By: #### B ETA2M #### [facility] [address] [address] [address] Yaneth Walton Glucose [Mass/Vol] 90 mg/dL Normal 74-106 [facility] Comment on above: Performed By: #### B ETA2M #### [facility] [address] [place] [address] Dr. Yaneth Walton Potassium [Moles/Vol] 3.7 mmol/L Normal 3.5-5.1 [facility] Comment on above: Performed By: #### B ETA2M #### [facility] [address] [address] [address] Yaneth Walton Protein [Mass/Vol] 7.4 g/dL Normal 6.1-8.2 [facility] Comment on above: Performed By: #### B ETA2M #### [facility] [address] [place] [address] Dr. Yaneth Walton Sodium [Moles/Vol] 140 mmol/L Normal 136-145 [facility] Comment on above: Performed By: #### B ETA2M #### [facility] [address] [address] [address] Yaneth Walton Urea nitrogen [Mass/Vol] 22.0 mg/dL Critically high 7.0-18.0 [facility] Comment on above: Performed By: #### B ETA2M #### [facility] [address] [place] [address] Dr. Yaneth Walton Urea nitrogen/Creatinin e [Mass ratio] 26.2 mg/mg Normal [facility] Comment on above: Performed By: #### B ETA2M #### [facility] [address] [address] [address] Yaneth Walton Encounters Encounter Date Encounter Type Care Provider Facility Start: 12-27-2023 ambulatory Miguel Allen Facility [facility] Start: 01-29-2023 End: 01-30-2023 [facility] Start: 12-25-2022 End: 12-26-2022 ambulatory Miguel Allen Facility:[facility] Start: 12-25-2022 End: 12-26-2022 [facility] Start: 11-27-2022 End: 11-28-2022 ambulatory Alice Ryan MD Facility:[facility] Start: 11-13-2022 End: 11-14-2022 ambulatory Alice Ryan MD Facility:[facility] Start: 07-24-2022 End: 07-25-2022 ambulatory Miguel Allen Facility:[facility] Start: 06-22-2022 [facility] Start: 06-21-2022 End: 06-22-[address] CAROL KENNEDY . Facility: Start: 04-21-2022 End: 06-09-[address] CAROL KENNEDY . Facility:[facility] Start: 02-10-2022 End: 02-11-[address] CAROL KENNEDY . Facility:[facility] Start: 02-03-2022 End: 02-04-[address] CAROL KENNEDY . Facility:[facility] Start: 12-21-2021 End: 12-22-[address] SAMANTHA DEVINE Facility:[facility] Start: 08-19-2021 End: 08-20-[address] CAROL KENNEDY . Facility:[facility] Start: 07-14-2021 End: 07-15-2021 ambulatory Tatiana Douglas Facility:[facility] Start: 07-07-2021 End: 07-08-[address] TATIANA DOUGLAS Facility: Payers Date Payer Category Payer Medicare 2022 Unknown 2017 Unknown [id number] 2016 Self-pay [id number] 1958 Medicare [id number] 1959 Unknown [id number] 1951 Unknown [id number] 2.16.84 0.1.736874.3.579.2.593 1950 Unknown [id number] 2.16.84 0.1.078172.3.579.2.593 1950 Unknown [id number] 2.16.84 0.1.291003.3.579.2.593 1951 Unknown [id number] 2.16.84 0.1.752345.3.579.2.593 1951 Unknown [id number] 2.16.84 0.1.401424.3.579.2.593 1951 Unknown [id number] 2.16.84 0.1.217490.3.579.2.593 1951 Unknown [id number] 2.16.84 0.1.979583.3.579.2.593 1951 Unknown [id number] 2.16. 840.1.156653.3.579.2.196 1950 Unknown [id number] 2.16. 840.1.966376.3.579.2.196 1951 Unknown [id number] 2.16. 840.1.196587.3.579.2.196 1951 Unknown [id number] 2.16. 840.1.960587.3.579.2.196 1951 Unknown [id number] 2.16.8 40.1.620586.3.579.2.727 1950 Unknown [id number] 2.16.8 40.1.593851.3.579.2.727 1951 Unknown [id number] 2.16.8 40.1.309543.3.579.2.727 1950 Unknown [id number] 2.16.8 40.1.039773.3.579.2.727 Unknown [facility] [id number] Unknown [id number] 2.16.8 40.1.099699.3.579.2.531 Social History Date Type Detail Facility Tobacco smoking stat [facility] Unknown if ever smoked [facility] Work Phone: Start: 1950 Sex Assigned At Female F [facility] Evaluation note Note Date & Type Note Facility Evaluation note No assessment information availa ble [facility] Work Phone: Summary Purpose Family History No Family History Records Found Relationship Condition Age at Onset Recorded Date/T yenni father Malignant neoplasm of pancreas Unknown Advance Directives No Advanced Directives Records FoundNo Advanced Directives Records FoundNo Advanced Directives Records FoundNo Advanced Directives Records FoundNo Advanced Directives Records Found Additional Source Comments INFORMATION SOURCE (unrecogn ized section and content) DATE CREATED AUTHOR 08/13/2021 [facility] DATE CREATED AUTHOR AUTHOR'S ORGANIZ ATION 07/05/2022 [facility] DATE CREATED AUTHOR AUTHOR'S ORGANIZ ATION 02/02/2023 [facility] DATE CREATED AUTHOR AUTHOR'S ORGANIZ ATION 03/07/2023 [facility] DATE CREATED AUTHOR AUTHOR'S ORGANIZ ATION 05/26/2023 [facility] Goals (unrecognized section and content) Goals may be documented in a n alternate section FOR RECORDS PERTAINING TO PATIENTS WHO ARE OR HAVE BEEN ENROLLED IN A CHEMICAL DEPENDENCY/SUBSTANCEABUSE PROGRAM, SOME INFORMATION MAY BE OMITTED. This clinical summary was aggregated from multiple sources. Caution should be exercised in using it in the provision of clinical care. This summary normalizes information from multiple sources, and as a consequence, information in this document may materially change the coding, format and clinical context of patient data. In addition, data may be omitted in some cases. CLINICAL DECISIONS SHOULD BE BASED ON THE PRIMARY CLINICAL RECORDS. [facility] [employer] [facility]. provides no warranty or guarantee of the accuracy or completeness of information in this document.
== END 2023-05-30 12:40 | disposition home or self-care (01) ==
LOC: PM 12:39
PROVIDERS: PCP Family Medicine; Visit Provider Nurse Practitioner
DX: M47.816 Spondylosis without myelopathy or radiculopathy, lumbar region (principal); M48.062 Spinal stenosis, lumbar region with neurogenic claudication; M54.16 Radiculopathy, lumbar region
CPT/HCPCS: G0463

== ENCOUNTER 2023-06-25 09:13 | Outpatient (OUT) | payer MEDICARE, OTHER, SELFPAY ==
--- OUTSIDE RECORDS SUMMARY | 2023-06-25 09:19 | XMS_ITS | CCD ---
Author Organization [facility] Care Team Providers Care Hydraulics Teacher Name Role Phone KENNEDY ., DR CAROL Vyas Primary Care Unavailable KELLY, LEIGH Admitting Unavailable KELLY, LEIGH Attending Unavailable MISAEL, DR TATIANA Tracy Admitting Unavailable KENNEDY ., DR CAROL Vyas Primary Care Unavailable MISAEL, DR TATIANA Tracy Attending Unavailable MISAEL, DR TATIANA Tracy Consulting Unavailable KENNEDY ., DR CAROL Vyas Primary Care Unavailable ANDREWADANasreen, DR SINGH Consulting Unavailable NILSON, DR SINGH Admitting Unavailable NILSON, DR SINGH Attending Unavailable KENNEDY ., DR CAROL Vyas Admitting Unavailable KENNEDY ., DR CAROL Vyas Attending Unavailable KENNEDY ., DR CAROL Vyas Consulting Unavailable KENNEDY ., DR CAROL Vyas Primary Care Unavailable ROSITA, DR HEATHER Parekh Consulting Unavailable NILSON, DR SINGH Consulting Unavailable KENNEDY ., DR CAROL Vysa Admitting Unavailable KENNEDY ., DR CAROL Vyas [...] Unavailable Connor BRADFORD, Alice Miranda Attending Unavailable Tatiana Douglas Admitting Unavailable Misael, Tatiana Attending Unavailable Carol Kennedy Primary Care Unavailable Marcia, Carol Vyas Referring Unavailable Miguel Allen Attending Unavailable Miguel Allen Attending Unavailable Miguel Allen Attending Unavailable Miguel Allen Attending Unavailable Miguel Allen Admitting Unavailable Allergies Allergy Classification Reported Allergen(s) Allergy Type Date of Onset Reaction(s) Facility (2 sources) gabapentin Drug Allergy 07-15-19 Insomnia [facility] [place] Repository (1 source) Sulfamethoxazole / Trimethoprim Drug Allergy [facility] [place] Repository (1 source) Sulfonamides (Antibiotic) Drug allergy (disorder) 08-21-19 15 [facility] Repository (2 sources) Latex; Translations: [latex] Allergy to substance 07-15-19 blisters at site of contact [facility] (2 sources) Meperidine; Translations: [meperidine] Drug Allergy 07-15-19 Nausea [facility] (3 sources) Morphine; Translations: [morphine] Drug Allergy 07-15-19 [facility] (2 sources) oxyCODONE; Translations: [oxycodone] Drug Allergy 07-15-19 [facility] (2 sources) Sulfamethoxazole; Translations: [sulfamethoxazole] Drug Allergy 07-15-19 [facility] (2 sources) Trimethoprim; Translations: [trimethoprim] Drug Allergy 07-15-19 [facility] (1 source) gabapentin Drug Allergy 07-15-19 [facility] Repository (1 source) Acetaminophen / oxyCODONE; Translations: [Percocet] Drug Allergy [facility] Repository (1 source) gabapentin; Translations: [Neurontin] Drug Allergy [facility] Repository (1 source) Meperidine; Translations: [Demerol] Drug Allergy [facility] Repository (1 source) Sulfonamides (Antibiotic); Translations: [sulfa drugs] Propensity to adverse reactions (disorder) [facility] Repository Medications Current Medications Medication Drug Class(es) Dates Sig (Normalized) Sig (Original) Carboxymethylcellulose Sodium (Refresh Tears) 0.5 % Drops (1 source) Start: 017 Carboxymethylcellulose Sodium (Refresh Tears) 0.5 % Drops Active 1 DROPS OPHTHALMIC 4-12 TIMES PER DAY December 19, 2016 12:00am furosemide 20 mg oral tablet (1 source) Loop Diuretic Start: 04-20-2 018 take 20 mg by mouth once [...] te Episodic/Chronic Other aftercare (1 source) Other longterm (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 therapy; Translations: [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#1.00TIFF Normal [facility] Operative Reporton Operative Report [id number]#1.00TIFF Normal [facility] Consultation Noteon 01-10-20 Consultation Note [id number]#1.00TIFF Normal [facility] Consultation Noteon 12-28-19 Consultation Note [id number]#1.00TIFF Normal [facility] Family Medicine Office/Clini c Noteon 12-27-2022 Family [...] of clutter to prevent tripping and/or falling. [place] Advance Directives reviewed, see #3 below. Patient [...] Living Will and a durable power of assistant district attorney for your health care. These two [...] selected your a (more content not included)... [facility] Comment on above: Result Comment: Elec tronically Signed By: Chel Parker\.br\Date and Time Signed: 12/27/22 12:49 EDT\.br\Electronically Co-Signed By: Abiodun Hodges\.br\Date and Time Co-Signed: 12/25/22 16:07 EDT Operative Reporton Operative Report [id number]#1.00TIFF [facility] Screenson 12-26-2022 Screens [id number]#1.00TIFF [facility] Ambulatory Visit Summaryon 1 Ambulatory Visit Summary [...] 1% cream) naproxen potassium chloride (Potassium Chloride (Vtn-Uybp-Szr 10) 10 mEq oral tablet, extended release) [...] Follow-Up Appointments 2023 1:00 PM EDT Where: [facility] Patient Educationon 12-25- 23 Patient Education Caregiving Fall Prevention in [...] night-lights. ? Place frequently used items in xldy-fl-chqru places. Lower the shelves around your home [...] the way. ? Do not use floor greenlandic or wax that makes floors slippery. If [...] include working with a physical therapist or marine animal trainer to improve your strength, balance, and endurance. Where to find more information ? Centers for Disease Control and Prevention, [place]: www.cdc.gov ? National [place] on Aging: www.joao.nih.gov Contact a health care [...] your health ca (more content not included)... Normal [facility] Consultation Noteon 12-21-19 Consultation Note [id number]#1.00TIFF Normal [facility] Consultation Noteon 12-20-19 Consultation Note [id number]#1.00TIFF [facility] Operative Reporton Operative Report [id number]#1.00CD:127 Normal [facility] Consultation Noteon 11-16-19 Consultation Note [id number]#1.00CD:127 Normal [facility] Consultation Noteon 10-03-19 Consultation Note [id number]#1.00CD:127 Normal [facility] Outside Mammographyon 2022 Outside Mammography [id number]#1.00CD:127 Normal [facility] Immunoglobs. A/E/G/Mon 08-01 IgA Quant duplt test Invalid Interpretation Code [facility] Comment on above: Performed By: #### 1 3451391, 2941348, 2736250, 2501693, 75771280, 8773297, 525744992, 9594466, 4752593, 70520081, 09622640, 49694572 ####[facility] [address] [place] [address] IgG Quant duplt test Invalid Interpretation Code [facility] Comment on above: Performed By: #### 1 1994183, 8266268, 0381517, 7849632, 53231224, 5918520, 187751144, 3914304, 4412588, 57029761, 16035071, 00395156 ####[facility] [address] [place] [address] IgM Quant duplt test Invalid Interpretation Code [facility] Comment on above: Performed By: #### 1 0007799, 3576504, 2286409, 6593076, 20096680, 7695977, 286509202, 7739088, 3042364, 92606667, 92187330, 17035107 ####[facility] [address] [place] [address] B2 Microon 07-29-2022 Ivdw-7-Fpslwpqofbx in [Mass/Vol] 3.8 ug/mL High 0.6-2.4 [facility] Comment on above: Result Comment: Siem [facility] Immulite 2000 Immunochemiluminometric assay (ICMA) Values obtained with different assay methods or kits cannot be used interchangeably. Results cannot be interpreted as absolute evidence of the presence or absence of malignant disease. Performed at: [facility] [id number] MD Mike Jensen Performed By: #### 1 2133483, 5283608, 9308442, 1793731, 69461412, 1158921, 545891725, 8248393, 0201327, 27680293, 29631884, 94224791 ####[facility] [address] [place] [address] Immunofixation Serumon 07-29 IgA [Mass/Vol] 80 mg/dL Invalid Interpretation Code 64-188 [facility] Comment on above: Performed By: #### 1 6612534, 1908030, 6533049, 3573864, 08489065, 5670967, 146479875, 4572505, 8202236, 47892199, 65888569, 12221889 ####[facility] [address] [place] [address] IgG [Mass/Vol] 986 mg/dL Invalid Interpretation Code 652-7998 [facility] Comment on above: Performed By: #### 1 8710316, 9683442, 9634831, 2187677, 98561278, 9383925, 544548588, 2124147, 1821972, 29859847, 03837358, 54088603 ####[facility] [address] [place] [address] IgM [Mass/Vol] 49 mg/dL Invalid Interpretation Code [facility] Comment on above: Result Comment: [facility]: [facility] [address] [place], [place] [id number] PhD Gloria Townsend Performed By: #### 1 3539780, 3887879, 5128756, 0445792, 74972367, 4781229, 282636166, 5862414, 6704893, 27971548, 73205770, 64984791 ####[facility] [address] [place] [address] Protein Fractions [Interp] Comment Invalid Interpretation Code [facility] Comment on above: Result Comment: Immu nofixation shows IgG monoclonal protein with lambda light chain specificity. Performed By: #### 1 6316507, 7551349, 9604968, 1268173, 68780731, 3517516, 132645500, 7017858, 6973199, 82684355, 12224892, 17031029 ####[facility] [address] [place] [address] Result Comment: The SPE pattern demonstrates a [...] the presence of Bence-Sanchez protein. Performed at: [facility] [address] [id number] PhD Gloria Saravias. A/E/G/Mon 07-29 IgE Qn 227 International_Unit/mL Invali d Interpretation Code 6-339 [facility] Comment on above: Result Comment: Perf ormed at: [facility] [address] [id number] MD Mike Jensen Performed By: #### 1 5033374, 6773999, 3397310, 8798654, 84745602, 6688091, 283186312, 8531260, 9487403, 12396689, 22060703, 28750508 ####[facility] [address] [place] [address] SPEon 07-29-2022 Albumin [Mass/Vol] 3.6 g/dL Invalid Interpretation Code 2.9-4.4 [facility] Comment on above: Performed By: #### 1 9025565, 3983611, 8984578, 1762815, 37546722, 6321515, 961851879, 2439683, 4805447, 39299423, 88835071, 45096760 ####[facility] [address] [place] [address] Albumin/Globulin [Mass ratio] 1.1 {ratio} Invalid Interpretation Code 0.7-1.7 [facility] Comment on above: Performed By: #### 1 1230875, 5373398, 2802186, 0207011, 76608993, 6831916, 869768578, 5066457, 7732074, 13126943, 70950447, 45619025 ####[place] [address] [place] [address] Alpha 1 globulin Elph [Mass/Vol] 0.3 g/dL Invalid Interpretation Code 0.0-0.4 [facility] Comment on above: Performed By: #### 1 5138489, 6019132, 2727807, 7925063, 29450551, 4695209, 465662055, 7852774, 7684642, 86204045, 45741858, 03876947 ####[address] [place] [address] Alpha 2 globulin Elph [Mass/Vol] 0.8 g/dL Invalid Interpretation Code 0.4-1.0 [facility] Comment on above: Performed By: #### 1 0821905, 2474281, 7476010, 8513264, 97109138, 3193317, 274809528, 4024439, 8374430, 16779264, 54903950, 43093050 ####[place] [address] [place] [address] Beta globulin Elph [Mass/Vol] 1.0 g/dL Invalid Interpretation Code 0.7-1.3 [facility] Comment on above: Performed By: #### 1 9890210, 6731189, 2200897, 2589031, 65611951, 0641943, 435593789, 5586320, 7878304, 97817884, 65826197, 88910906 ####[facility] [address] [place] [address] Gamma globulin Elph [Mass/Vol] 1.0 g/dL Invalid Interpretation Code 0.4-1.8 [facility] Comment on above: Performed By: #### 1 4931150, 9786750, 7475369, 5317661, 60215451, 4109775, 332192608, 0996230, 3712072, 95687665, 10804701, 37064547 ####[facility] [address] [place] [address] Globulin (S) [Mass/Vol] 3.2 g/dL Invalid Interpretation Code 2.2-3.9 [facility] Comment on above: Performed By: #### 1 4396480, 7488780, 0117763, 5663770, 28776384, 8749449, 524563609, 9585322, 0381290, 35170190, 03715687, 53585881 ####[facility] [address] [place] [address] Laboratory comment Cecilio (Report) Comment Invalid Interpretation Code [facility] Comment on above: Result Comment: Prot ein electrophoresis scan will follow via computer, mail, or assistant analyst delivery. Performed By: #### 1 8316323, 0737504, 0497326, 6983083, 09985621, 4125232, 447173562, 1062710, 1512603, 50154964, 78003124, 16279446 ####[facility] [address] [place] [address] Protein [Mass/Vol] 6.8 g/dL Invalid Interpretation Code 6.0-8.5 [facility] Comment on above: Performed By: #### 1 2434897, 0026111, 9284468, 5509023, 54366299, 2918577, 883920321, 2898655, 6506840, 31390848, 11533728, 85714080 ####[facility] [address] [place] [address] Protein.monoclonal Elph [Mass/Vol] 0.9 gm/dL High Not Observed [facility] Comment on above: Performed By: #### 1 9526278, 6817678, 2415054, 8078250, 75194520, 0943057, 955814796, 4781708, 8832989, 83845045, 66941026, 76077551 ####[facility] [address] [place] [address] T3 Freeon 07-29-2022 Free T3 [Mass/Vol] 3.1 pg/mL Invalid Interpretation Code 2.0-4.4 [facility] Comment on above: Result Comment: Perf ormed at: [facility] [address] [id number] PhD Gloria Townsend Performed By: #### 1 2541624, 5420809, 4305703, 3903183, 23856686, 0424848, 434168826, 5618848, 2072539, 40379161, 72107928, 61839321 ####[facility] [address] [place] [address] Family Medicine Office/Clini c Noteon 07-26-2022 Family Medicine Office/Clinic Note Chief Complaint establish care HPI Staff establish care Establish Care: History:htn, anemia, hypothyroid, hypercholesterolemia,sogre ns Last provider: Dr Kennedy Any recent labs: 08/19/21 Health Maintenance UTD: Colonoscopy: 2019 normal Mammogram:08/19/21 Pelvic/Pap: no longer does, hysterectomy covid: UTD Acute: Current issues/complaints: med refills and review chronic conditions, check something on her back 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 She has a history of hypoparathyroidism and [...] after patient or guardian consented to allow [employer] to record this visit. YANI embroidery specialist and provider reviewed before signing. YANI: Izaiah Dillon Follow-up No qualifying data available Problem List/Past Medical History Ongoing Anemia Fibromyalgia Hypertension Hypoparathyroidism Hypothyroidism MGUS (monoclonal gammopathy of (more content not included)... Normal [facility] Comment on above: Result Comment: Elec tronically Signed By: Miguel Allen MD\.br\Date and Time Signed: 07/26/22 10:13 EDT\.br\Electronically Co-Signed By: Izaiah Dillon.br\Date and Time Co-Signed: 07/24/22 15:51 EDT PTH Intacton 07-26-2022 Parathyrin.intact [Mass/Vol] 43 pg/mL Invalid Interpretation Code 15-65 [facility] Comment on above: Result Comment: Perf ormed at: [facility] [address] [id number] PhD Gloria Townsend Performed By: #### 1 [id number] ####[facility] [address] [place] [address] Ambulatory Visit Summaryon 0 07-24-2022 Ambulatory Visit [...] MD Primary Care Physician - Miguel Allen MD. This Is Your Medications List atorvastatin (atorvastatin 10 mg Tab) cholecalciferol (Vitamin D3 2000 intl units oral Tab) furosemide (furosemide 20 mg Tab) ibandronate (ibandronate 150 mg oral tablet) levothyroxine (levothyroxine 50 mcg (0.05 mg) Tab) lisinopril (lisinopril 10 mg Tab) potassium chloride (Potassium Chloride (Cat-Yghj-Efp 10) 10 mEq oral tablet, extended release) [...] Tablets By Mouth Every day Pickup at [facility] 1155 Changed cholecalciferol (Vitamin D3 2000 intl units oral Tab) 50 Microgram By Mouth Every day Pickup at [facility] 1155 Changed furosemide (furosemide 20 mg Tab) 1 Tablets By Mouth Every day Pickup at [facility] 1155 Changed ibandronate (ibandronate 150 mg oral tablet) 1 Tablets By Mouth Once a month Pickup at [facility] 115 Changed levothyroxine (levothyroxine 50 mcg (0.05 mg) Tab) 1 Tablets By Mouth Every day Pickup at [facility] 1155 Changed lisinopril (lisinopril 10 mg Tab) 1 Tablets By Mouth Every day Pickup at [facility] 1155 Changed potassium chloride (Potassium Chloride (Bqu-Uewx-Vbi 10) 10 mEq oral tablet, extended release) 1 Tablets By Mouth Every day Pickup at [facility] 115 Unchanged hydroxychloroquine (hydroxychloroquine 200 mg Tab) See instructions 200mg orally twice a day alternating with 200mg once a day Contact prescribing physician if questions or concerns Unchanged metronidazole topical (metronidazole topical 1% cream) 1 Application Topical 2 times a day use for rosacea Contact prescribing physician if questions or concerns Pharmacy Information [place] [facility] [address]: [address] [place], [place] [id number] [phone] What How Much When Comments Stop Taking [...] syndrome SK (seborrheic keratosis) Vitamin D deficiency [facility] Ambulatory Visit Summary MISTY PEREZ :1950 Visit [...] 10 mg Tab) potassium chloride (Potassium Chloride (Zsd-Kapk-Euf 10) 10 mEq oral tablet, extended release) [...] Tablets By Mouth Every day Pickup at [facility] 115 Changed cholecalciferol (Vitamin D3 2000 intl units oral Tab) 50 Microgram By Mouth [place] [facility] [place] [address] Changed furosemide (furosemide 20 mg Tab) 1 Tablets By Mouth Every day Pickup at [facility] 115 Changed ibandronate (ibandronate 150 mg oral tablet) 1 Tablets By Mouth Once a month Pickup at [place] [address] Changed levothyroxine (levothyroxine 50 mcg (0.05 mg) Tab) 1 Tablets By Mouth Every day Pickup at [facility] 1155 Changed lisinopril (lisinopril 10 mg Tab) 1 Tablets By Mouth Every day Pickup at [facility] 115 Changed potassium chloride (Potassium Chloride (Yhc-Vihn-Xbq 10) 10 mEq oral tablet, extended release) 1 Tablets By Mouth Every day Pickup at [place] [address] Unchanged hydroxychloroquine (hydroxychloroquine 200 mg Tab) See instructions 200mg orally twice a day alternating with 200mg once a day Contact prescribing physician if questions or concerns Unchanged metronidazole topical (metronidazole topical 1% cream) 1 Application Topical 2 times a day use for rosacea Contact prescribing physician if questions or concerns Pharmacy Information [facility]: [address] [place], [place] [phone] What How Much When Comments Stop Taking [...] SK (seborrheic keratosis) Vitamin D deficiency Normal [facility] Auto Diffon 07-24-2022 Basophils/100 WBC (Bld) 0.7 % Normal 0.0-2.0 [facility] Comment on above: Order Comment: Order Added by Discern Expert. Performed By: #### 1 8213932, 2107894, 9073883, 8887881, 56402454, 1505085, 126494461, 9820995, 9299597, 80622702, 22537745, 65685655 ####[facility] [address] [place] [address] Basophils/Leukocyt es Auto (Bld) [Pure # fraction] 0.0 E9/L Normal 0.0-0.2 [facility] Comment on above: Order Comment: Order Added by Discern Expert. Performed By: #### 1 5390182, 1113121, 3454954, 2666034, 96428418, 6924640, 240747351, 6529426, 5718651, 05288445, 56453185, 21562666 ####[facility] [address] [place] [address] Eosinophils/100 WBC (Bld) 2.0 % Normal 0.0-8.0 [facility] Comment on above: Order Comment: Order Added by Discern Expert. Performed By: #### 1 9409514, 8404425, 4527544, 9178030, 92313993, 0029563, 413868672, 4207583, 0537844, 50604982, 22462792, 47945325 ####[facility] [address] [place] [address] Eosinophils/Leukoc ytes Auto (Bld) [Pure # fraction] 0.1 E9/L Normal 0.0-0.5 [facility] Comment on above: Order Comment: Order Added by Discern Expert. Performed By: #### 1 6774392, 3695593, 2871308, 9764410, 59321752, 9072947, 187600168, 9930158, 1666854, 22074697, 55725586, 87264512 ####[place] [address] [place] [address] Lymphocytes/100 WBC (Bld) 18.9 % Normal 14.0-50.0 [facility] Comment on above: Order Comment: Order Added by Discern Expert. Performed By: #### 1 8938266, 3487214, 4947164, 2105131, 08550966, 5900018, 104383822, 8453650, 3295731, 81962285, 29087573, 30551838 ####[place] [address] [place] [address] Lymphocytes/Leukoc ytes Auto (Bld) [Pure # fraction] 0.9 E9/L Low 1.0-4.0 [facility] Comment on above: Order Comment: Order Added by Discern Expert. Performed By: #### 1 9886825, 8698615, 4852925, 7180944, 84402274, 0549908, 811833311, 2422263, 0341477, 14982212, 28582656, 40780728 ####[place] [place] [address] Monocytes/100 WBC (Bld) 10.7 % Normal 4.0-14.0 [facility] Comment on above: Order Comment: Order Added by Discern Expert. Performed By: #### 1 3894727, 8480660, 5662496, 9290404, 47779137, 4234473, 798618309, 7471891, 5680231, 44949255, 58973349, 48671647 ####[facility] [address] [place] [address] Monocytes/Leukocyt es Auto (Bld) [Pure # fraction] 0.5 E9/L Normal 0.2-1.0 [facility] Comment on above: Order Comment: Order Added by Discern Expert. Performed By: #### 1 9419877, 5709107, 3021637, 0277050, 13210472, 8911831, 432933503, 9049183, 0706229, 21098556, 80056871, 24741120 ####[place] [address] [place] [address] Neutrophils/100 WBC (Bld) 67.7 % Normal 36.0-75.0 [facility] Comment on above: Order Comment: Order Added by Discern Expert. Performed By: #### 1 8684200, 9197654, 0438758, 1727174, 01780477, 8091713, 163365172, 7809891, 1295209, 89124814, 14307152, 29919862 ####[facility] [address] [place] [address] Neutrophils/Leukoc ytes Auto (Bld) [Pure # fraction] 3.3 E9/L Normal 2.0-7.5 [facility] Comment on above: Order Comment: Order Added by Discern Expert. Performed By: #### 1 0741593, 9865744, 3937252, 4653748, 26192173, 8251416, 890206728, 7237446, 5550806, 28757332, 22115542, 11343099 ####[facility] [address] [place] [address] CBC w/ Auto Diffon 3 Erythrocyte distribution width (RBC) [Ratio] 12.5 % Normal 10.9-14.2 [facility] Comment on above: Performed By: #### 1 9848777, 6397375, 3074736, 4747391, 45244246, 6136108, 547245466, 6869042, 9206540, 15475883, 84125692, 19705999 ####[facility] [address] [place] [address] Hematocrit (Bld) [Volume fraction] 40.8 % Normal 34.0-46.0 [facility] Comment on above: Performed By: #### 1 5803912, 9814785, 4155537, 3749821, 31336495, 6564398, 405808886, 6039125, 6466353, 46556087, 30537908, 93221134 ####[facility] [address] [place] [address] Hemoglobin (Bld) [Mass/Vol] 13.1 g/dL Normal 12.0-16.0 [facility] Comment on above: Performed By: #### 1 6839583, 7126932, 5091099, 1043033, 61741176, 0844480, 263783095, 1494399, 2808047, 00703751, 67792986, 68461125 ####[address] [address] MCH (RBC) [Entitic mass] 30.4 pg Normal 27.0-34.0 [facility] Comment on above: Performed By: #### 1 5987269, 5590723, 1896567, 5716650, 65539124, 1586698, 769652919, 2933390, 6482163, 46490566, 34157478, 94445350 ####[facility] [address] [place] [address] MCHC (RBC) [Mass/Vol] 32.1 g/dL Normal 31.4-36.0 [facility] Comment on above: Performed By: #### 1 1408519, 9427834, 8428234, 7988561, 07462853, 6187175, 530703057, 9976369, 2969831, 87081816, 71309325, 46536324 ####[address] [place] [address] MCV (RBC) [Entitic vol] 94.4 fL Normal 80.0-100.0 [facility] Comment on above: Performed By: #### 1 2427026, 2325000, 1853144, 4236516, 57483939, 7138532, 495012789, 4968462, 1364688, 76422789, 07497185, 71410587 ####[address] [place] [address] Platelet mean volume (Bld) [Entitic vol] 9.8 fL Normal 6.4-10.8 [facility] Comment on above: Performed By: #### 1 1463185, 3509306, 6423860, 7564069, 05108648, 7075703, 990784861, 5052441, 4292409, 96357256, 33121591, 33731066 ####[address] [address] Platelets (Bld) [#/Vol] 169.0 E9/L Normal 150.0-500.0 [facility] Comment on above: Performed By: #### 1 6992921, 1876222, 5355098, 1058709, 51018184, 6788363, 904720293, 3520299, 3737633, 11570873, 80372514, 56070385 ####[address] [address] RBC (Bld) [#/Vol] 4.3 E12/L Normal 4.3-5.9 [facility] Comment on above: Performed By: #### 1 1646307, 6383571, 9015614, 7145597, 55355974, 5576052, 234765733, 0561452, 4659492, 86213459, 39611154, 29849644 ####[address] [place] [address] WBC corrected for nucl RBC Auto (Bld) [#/Vol] 4.9 E9/L Normal 4.0-11.0 [facility] Comment on above: Performed By: #### 1 2060356, 3537288, 6983815, 2908306, 59525924, 7441589, 368348978, 1736546, 0015085, 25767786, 12563741, 73326190 ####[facility] [address] [place] [address] CMPon 07-24-2022 Albumin [Mass/Vol] 3.4 g/dL Normal 3.3-5.0 [facility] Comment on above: Performed By: #### 1 2772646, 4827997, 5689579, 1382639, 10571833, 6161120, 505593744, 3134702, 3440286, 08586827, 19006710, 70619123 ####[facility] [address] [place] [address] Albumin/Globulin (S) [Mass conc ratio] 0.9 Low 1.1-2.2 [facility] Comment on above: Performed By: #### 1 9922766, 2367164, 0701292, 1138671, 00545374, 6914483, 950941167, 9719251, 5331437, 92795780, 62363867, 18890664 ####[facility] [address] [place] [address] ALP [Catalytic activity/Vol] 80 Int._Unit/L Normal 21-98 [facility] Comment on above: Performed By: #### 1 1355511, 1922603, 7881202, 1449276, 82799309, 1770520, 843810888, 9724860, 3976713, 38144758, 24440270, 23633098 ####[facility] [address] [place] [address] ALT No additional P-5'-P [Catalytic activity/Vol] 23 Int._Unit/L Normal 6-46 [facility] Comment on above: Performed By: #### 1 1879343, 1473717, 9406053, 1855466, 94821461, 3498713, 050468764, 5346849, 5052176, 29064013, 70346885, 58530724 ####[facility] [address] [place] [address] Anion gap [Moles/Vol] 10 mmol/L Normal 6-16 [facility] Comment on above: Performed By: #### 1 7730292, 4938152, 1927331, 1763910, 06160526, 9845291, 122562872, 9963965, 8057025, 61744866, 40575326, 79456245 ####[facility] [address] [place] [address] AST [Catalytic activity/Vol] 28 Int._Unit/L Normal 5-43 [facility] Comment on above: Performed By: #### 1 9917839, 2958735, 6351633, 2710353, 61958897, 1295109, 413794261, 2633491, 0674759, 28089436, 61145702, 95640961 ####[facility] [address] [place] [address] Bilirubin [Mass/Vol] 0.7 mg/dL Normal 0.0-1.1 [facility] Comment on above: Performed By: #### 1 2832810, 6832874, 1767814, 6097761, 62965371, 0157349, 843355695, 1102526, 7748347, 65007058, 87058294, 36558279 ####[facility] [address] [place] [address] Calcium [Mass/Vol] 9.7 mg/dL Normal 8.9-11.1 [facility] Comment on above: Performed By: #### 1 3149750, 0150259, 3365634, 2339192, 62320460, 9549760, 995618840, 8634624, 1590326, 78450950, 47814897, 72952164 ####[facility] [address] [place] [address] Chloride [Moles/Vol] 106 mmol/L Normal 101-111 [facility] Comment on above: Performed By: #### 1 3165166, 2539175, 6231426, 6603001, 21854696, 5226747, 981061222, 5661175, 6654335, 95159441, 88014930, 23347027 ####[facility] [address] [place] [address] CO2 [Moles/Vol] 30 mmol/L Normal 21-31 [facility] Comment on above: Performed By: #### 1 2401933, 5747082, 9489566, 3548899, 38142640, 3510046, 935898467, 6900326, 6191987, 66627221, 01999167, 57781279 ####[facility] [address] [place] [address] Creatinine [Mass/Vol] 0.9 mg/dL Normal 0.5-1.3 [facility] Comment on above: Performed By: #### 1 4929821, 9539295, 3724131, 0503301, 94861157, 7810012, 797927123, 7515150, 4391772, 95620449, 47107736, 16334583 ####[facility] [address] [place] [address] Globulin (S) [Mass/Vol] 3.9 g/dL Normal 1.4-4.0 [facility] Comment on above: Performed By: #### 1 9148640, 1007341, 5333244, 1971267, 31213607, 8897465, 344678944, 1728372, 8575332, 72031804, 07912583, 26346060 ####[facility] [address] [place] [address] Glucose [Mass/Vol] 98 mg/dL Normal 55-199 [facility] Comment on above: Result Comment: If t his glucose result represents a fasting glucose, interpretation should refer to the following reference range: 55-99 mg/dL Performed By: #### 1 6464730, 4730334, 7527226, 0865254, 49682739, 6073426, 828411602, 9583768, 0070843, 59022922, 08044616, 64319914 ####[facility] [address] [place] [address] Potassium [Moles/Vol] 4.4 mmol/L Normal 3.5-5.3 [facility] Comment on above: Performed By: #### 1 9912177, 4790035, 6308495, 5389819, 52036735, 0222075, 849605548, 6694647, 8109301, 35199580, 51429517, 84457382 ####[facility] [address] [place] [address] Protein [Mass/Vol] 7.3 g/dL Normal 6.0-7.8 [facility] Comment on above: Performed By: #### 1 8887426, 3753094, 4326009, 6859108, 23174996, 5517224, 609960066, 7058437, 8940302, 08984739, 35062747, 98119024 ####[facility] [address] [place] [address] Sodium [Moles/Vol] 142 mmol/L Normal 135-145 [facility] Comment on above: Performed By: #### 1 7920620, 4285374, 8970032, 9106358, 55133999, 2478756, 568078303, 8758414, 2090396, 47174055, 04108777, 56587115 ####[facility] [address] [place] [address] Urea nitrogen [Mass/Vol] 25 mg/dL High 5-21 [facility] Comment on above: Performed By: #### 1 6271490, 2430013, 8845452, 3861703, 30805896, 4433064, 891986366, 2276031, 4577089, 17481081, 73786917, 11781483 ####[facility] [address] [place] [address] Urea nitrogen/Creatinin e [Mass ratio] 28 No Units High 10-20 [facility] Comment on above: Performed By: #### 1 2738764, 5377104, 0563119, 3388019, 99962508, 4148936, 850091550, 9726020, 7631931, 76015456, 32154561, 51694731 ####[facility] [address] [place] [address] Lipid Panelon 07-24-2022 Cholesterol [Mass/Vol] 167 mg/dL Normal 120-200 [facility] Comment on above: Performed By: #### 1 7698718, 9979289, 4551458, 3255504, 22072252, 1853725, 675433833, 2127913, 2141340, 37959477, 86545899, 83660118 ####[facility] [address] [place] [address] Cholesterol in HDL [Mass/Vol] 65 mg/dL Invalid Interpretation Code [facility] Comment on above: Result Comment: HDL > or equal to 60 mg/dL: Low cardiovascular risk HDL < 40 mg/dL : High cardiovascular risk Performed By: #### 1 5671788, 0983379, 0545891, 0186766, 87814920, 1382606, 061059986, 2300139, 6499536, 02116896, 50643972, 81105050 ####[facility] [address] [place] [address] Cholesterol in LDL [Mass/Vol] 72 mg/dL Normal <=129 [facility] Comment on above: Performed By: #### 1 0749712, 1161173, 5142210, 9309705, 03037916, 0490500, 519749316, 6919928, 8255553, 23769912, 44098681, 98890661 ####[facility] [address] [place] [address] Cholesterol in VLDL [Mass/Vol] 22 mg/dL Normal 7-40 [facility] Comment on above: Performed By: #### 1 1296349, 0099472, 1263209, 1757117, 66681945, 5246105, 692409137, 8147512, 1399974, 92138173, 65412720, 39356973 ####[facility] [address] [place] [address] Triglyceride [Mass/Vol] 112 mg/dL Normal <=149 [facility] Comment on above: Performed By: #### 1 3850605, 6835483, 1639779, 6991027, 30432352, 9731197, 928725842, 1867022, 6010248, 75764461, 74151243, 27126207 ####[facility] [address] [place] [address] TSH With T4fr Reflexon 07-24 TSH Qn 0.73 m[IU]/L Normal 0.34-5.60 [facility] Comment on above: Performed By: #### 1 5463028, 7926889, 5478268, 4738283, 63100656, 9365948, 772149430, 8543164, 5684626, 60191513, 19761799, 17481185 ####[facility] [address] [place] [address] Vitamin D 25 Hydroxyon 07-24 25-hydroxyvitamin D3 [Mass/Vol] 47.6 ng/mL Normal 30.0-100.0 [facility] Comment on above: Result Comment: Vit arredondo D deficiency has been defined as a level of serum 25-OH vitamin D less than 20 ng/mL (1,2) by the [place] [employer] and an Endocrine Society practice guideline. The Endocrine Society further defined vitamin D insufficiency as a level between 21 and 29 ng/mL (2). 1. IOM ([place] [employer]). 2010. Dietary reference intakes for calcium and D. [place]: The National Academies Press. 2. Svitlana MF, Melanie NC, Paras VANN, et al. Evaluation, treatment, and prevention of vitamin D deficiency: an Endocrine Society clinical practice guideline. JCEM. 2010; 96 (7):1911-30. Performed By: #### 1 1362903, 5157763, 5880965, 6151633, 66911141, 4451220, 198478234, 1225393, 5040509, 40948381, 74842159, 36583546 ####[facility] [address] [place] [address] eGFRon 07-24-2022 GFR/1.73 sq M.predicted among non-blacks MDRD (S/P/Bld) [Vol rate/Area] 68 mL/min/1.73 m2 Normal >=59 [facility] Comment on above: Order Comment: Order added by Discern Expert. Result Comment: Rehabilitation Case Coordinator esperanza kidney disease could be indicated at eGFR's of less than 60 mL/min/1.73m2. Kidney failure is indicated at less than 15 mL/min/1.73m2. Performed By: #### 1 8457600, 2565185, 5907130, 0220074, 46115192, 5001245, 684274499, 1464462, 3419328, 98965021, 34677386, 08969465 ####[facility] [address] [place] [address] Lab Reportson 06-28-2022 Lab Reports [id number]:127 Normal [facility] Lab Reports [id number]:127 Normal [facility] C3 and C4 COMPLEMENTon 06-22 Complement C3, Serum 149 mg/dL Normal 82-167 [facility] Comment on above: Performed By: #### C ROMEO #### [facility] [address] [address] [address] Yaneth Walton Complement C4, Serum 31 mg/dL Normal 12-38 [facility] Comment on above: Performed By: #### C ROMEO #### [facility] [address] [address] [address] Yaneth Walton CBC AUTO DIFFon 06-21-2022 BASO # 0.0 103/ul Normal 0.0-0.1 [facility] Comment on above: Performed By: #### C BC #### [facility] [address] [place] [address] Dr. Yaneth Walton Basophils/100 WBC (Bld) 0.6 % Normal 0.2-2.0 [facility] Comment on above: Performed By: #### C BC #### [facility] [address] [place] [address] Dr. Yaneth Walton EO # 0.1 103/ul Normal 0.0-0.7 [facility] Comment on above: Performed By: #### C BC #### [facility] [address] [place] [address] Dr. Yaneth Walton Eosinophils/100 WBC (Bld) 2.8 % Normal 0.9-7.0 [facility] Comment on above: Performed By: #### C BC #### [facility] [address] [place] [address] Dr. Yaneth Walton Erythrocyte distribution width (RBC) [Ratio] 11.9 % Normal 11.0-15.0 [facility] Comment on above: Performed By: #### C BC #### [facility] [address] [place] [address] Dr. Yaneth Walton Hematocrit (Bld) [Volume fraction] 40.3 % Normal 36.0-48.0 [facility] Comment on above: Performed By: #### C BC #### [facility] [address] [place] [address] Dr. Yaneth Walton Hemoglobin (Bld) [Mass/Vol] 13.3 g/dL Normal 12.0-16.0 [facility] Comment on above: Performed By: #### C BC #### [facility] [address] [place] [address] Dr. Yaneth Walton IG # 0.01 10e3/ul Normal 0.00-0.03 [facility] Comment on above: Performed By: #### C BC #### [facility] [address] [place] [address] Dr. Yaneth Walton IG % 0.2 % Normal 0.0-0.5 [facility] Comment on above: Performed By: #### C BC #### [facility] [address] [place] [address] Dr. Yaneth Walton LYMPH # 1.0 103/ul Critically low 1.2-3.8 [facility] Comment on above: Performed By: #### C BC #### [facility] [address] [place] [address] Dr. Yaneth Walton Lymphocytes/100 WBC (Bld) 20.9 % Normal 20.5-60.0 [facility] Comment on above: Performed By: #### C BC #### [facility] [address] [place] [address] Dr. Yaneth Walton MANUAL DIFF REQ NO Normal [facility] Comment on above: Performed By: #### C BC #### [facility] [address] [place] [address] Dr. Yaneth Walton MCH (RBC) [Entitic mass] 32.0 pg Normal 26.7-34.0 [facility] Comment on above: Performed By: #### C BC #### [facility] [address] [place] [address] Dr. Yaneth Walton MCHC (RBC) [Mass/Vol] 33.0 g/dL Normal 29.9-35.2 [facility] Comment on above: Performed By: #### C BC #### [facility] [address] [place] [address] Dr. Yaneth Walton MCV (RBC) [Entitic vol] 97.1 fL Normal 81.0-99.0 [facility] Comment on above: Performed By: #### C BC #### [facility] [address] [place] [address] Dr. Yaneth Walton MONO # 0.4 103/ul Normal 0.3-0.8 [facility] Comment on above: Performed By: #### C BC #### [facility] [address] [place] [address] Dr. Yaneth Walton Monocytes/100 WBC (Bld) 8.4 % Normal 1.7-12.0 [facility] Comment on above: Performed By: #### C BC #### [facility] [address] [place] [address] Dr. Yaneth Walton NEUT # 3.1 103/ul Normal 1.4-6.5 [facility] Comment on above: Performed By: #### C BC #### [facility] [address] [place] [address] Dr. Yaneth Walton Neutrophils/100 WBC (Bld) 67.1 % Normal 43.0-75.0 [facility] Comment on above: Performed By: #### C BC #### [facility] [address] [place] [address] Dr. Yaneth Walton Platelet mean volume (Bld) [Entitic vol] 10.7 fL Normal 9.5-13.5 [facility] Comment on above: Performed By: #### C BC #### [facility] [address] [place] [address] Dr. Yaneth Walton PLT 213 103/ul Normal 150-450 [facility] Comment on above: Performed By: #### C BC #### [facility] [address] [place] [address] Dr. Yaneth Walton RBC 4.15 106/ul Critically low 4.20-5.40 [facility] Comment on above: Performed By: #### C BC #### [facility] [address] [place] [address] Dr. Yaneth Walton WBC 4.7 103/ul Normal 4.0-11.0 [facility] Comment on above: Performed By: #### C BC #### [facility] [address] [place] [address] Dr. Yaneth Walton CREATININEon 06-21-2022 Creatinine [Mass/Vol] 0.82 mg/dL Normal 0.55-1.02 [facility] Comment on above: Performed By: #### C ROMEO #### [facility] [address] [place] [address] Dr. Yaneth Walton EGFR-AF OMANI >60 Normal >=60 [facility] Comment on above: Performed By: #### C ROMEO #### [facility] [address] [place] [address] Dr. Yaneth Walton EGFR-NON AF OMANI >60 Normal >=60 [facility] Comment on above: Performed By: #### C ROMEO #### [facility] [address] [place] [address] Dr. Yaneth Walton SED RATE WESTERGRENon 2022 SED RATE 7 mm/hr Normal <=30 [facility] Comment on above: Performed By: #### C ROMEO #### [facility] [address] [place] [address] Dr. Yaneth Walton UA RANDOM W/MICROSCOPICon BACTERIA TRACE Abnormal NONE SEEN [facility] Comment on above: Performed By: #### C ROMEO #### [facility] [address] [place] [address] Dr. Yaneth Walton Bilirubin Ql (U) Negative Normal NEGATIVE [facility] Comment on above: Performed By: #### C ROMEO #### [facility] [address] [place] [address] Dr. Yaneth Walton CAST NONE SEEN Normal NONE SEEN [facility] Comment on above: Performed By: #### C ROMEO #### [facility] [address] [place] [address] Dr. Yaneth Walton Clarity (U) CLEAR Normal CLEAR [facility] Comment on above: Performed By: #### C ROMEO #### [facility] [address] [place] [address] Dr. Yaneth Walton Color (U) LT. YELLOW Normal YELLOW [facility] Comment on above: Performed By: #### C ROMEO #### [facility] [address] [place] [address] Dr. Yaneth Walton Crystals LM Nom (Urine sed) NONE SEEN Normal NONE SEEN [facility] Comment on above: Performed By: #### C ROMEO #### [facility] [address] [place] [address] Dr. Yaneth Walton Epithelial cells LM Ql (Urine sed) RARE Normal NONE SEEN /RARE [facility] Comment on above: Performed By: #### C ROMEO #### [facility] [address] [place] [address] Dr. Yaneth Walton Glucose Ql (U) Negative Normal NEGATIVE [facility] Comment on above: Performed By: #### C ROMEO #### [facility] [address] [place] [address] Dr. Yaneth Walton Hemoglobin Ql (U) Negative Normal NEGATIVE [facility] Comment on above: Performed By: #### C ROMEO #### [facility] [address] [place] [address] Dr. Yaneth Walton Ketones Ql (U) Negative Normal NEGATIVE [facility] Comment on above: Performed By: #### C ROMEO #### [facility] [address] [place] [address] Dr. Yaneth Walton LEUKOCYTES LARGE Abnormal NEGATIVE [facility] Comment on above: Performed By: #### C ROMEO #### [facility] [address] [place] [address] Dr. Yaneth Walton MUCOUS NONE SEEN Normal NONE SEEN [facility] Comment on above: Performed By: #### C ROMEO #### [facility] [address] [place] [address] Dr. Yaneth Walton Nitrite Ql (U) Negative Normal NEGATIVE [facility] Comment on above: Performed By: #### C ROMEO #### [facility] [address] [place] [address] Dr. Yaneth Walton pH (U) 6.0 [pH] Normal 5-9 [facility] Comment on above: Performed By: #### C ROMEO #### [facility] [address] [place] [address] Dr. Yanteh Walton RBC 0-2 Normal 0-2 [facility] Comment on above: Performed By: #### C ROMEO #### [facility] [address] [place] [address] Dr. Yaneth Walton SPEC GRAVITY <=1.005 Abnormal 1.005-<=1.02 5 [facility] Comment on above: Performed By: #### C ROMEO #### [facility] [address] [address] [address] Yaneth Walton UA PROTEIN Negative Normal NEGATIVE/ TRACE [facility] [place] Comment on above: Performed By: #### C ROMEO #### [facility] [place] Laboratory [address] [address] [address] Yaneth Walton Urobilinogen Qn (U) 0.2 {Ruth Ann'U}/dL Normal 0.2 - 1.0 [facility] Comment on above: Performed By: #### C ROMEO #### [facility] [place] Laboratory [address] [address] [address] Yaneth Walton WBC 10-20 Abnormal NONE SEEN [facility] [place] Comment on above: Performed By: #### C ROMEO #### [facility] [place] Laboratory [address] [address] [address] Yaneth Walton MRI LSPINE WO CONon [...] by: HEATHER BECKER Date: 2022-02-10 14:50 Normal [facility] XR KNEE SONY 4V or >on 2021 [...] by: HEATHER BECKER Date: 2022-02-03 17:51 Normal [facility] [place] XR LSPINE MIN 4 VIEWSon XR LSPINE [...] by: HEATHER BECKER Date: 2022-02-03 17:54 Normal [facility] C3 and C4 COMPLEMENTon 12-22 Complement C3, Serum 155 mg/dL Normal 82-167 [facility] Comment on above: Performed By: #### C SUITE #### [facility] Laboratory [address] [address] [address] Yaneth Walton Complement C4, Serum 35 mg/dL Normal 12-38 [facility] Comment on above: Performed By: #### C SUITE #### [facility] Laboratory [address] [place] [address] Dr. Yaneth Walton CBC AUTO DIFFon 12-21-2021 BASO # 0.1 103/ul Normal 0.0-0.1 [facility] Comment on above: Performed By: #### C BC #### [facility] Laboratory [address] [place] [address] Dr. Yaneth Walton Basophils/100 WBC (Bld) 0.9 % Normal 0.2-2.0 [facility] Comment on above: Performed By: #### C BC #### [facility] Laboratory [address] [place] [address] Dr. Yaneth Walton EO # 0.1 103/ul Normal 0.0-0.7 [facility] Comment on above: Performed By: #### C BC #### [facility] Laboratory [address] [place] [address] Dr. Yaneth Walton Eosinophils/100 WBC (Bld) 2.2 % Normal 0.9-7.0 [facility] Comment on above: Performed By: #### C BC #### [facility] Laboratory [address] [place] [address] Dr. Yaneth Walton Erythrocyte distribution width (RBC) [Ratio] 13.0 % Normal 11.0-15.0 [facility] Comment on above: Performed By: #### C BC #### [facility] Laboratory [address] [place] [address] Dr. Yaneth Walton Hematocrit (Bld) [Volume fraction] 42.0 % Normal 36.0-48.0 [facility] Comment on above: Performed By: #### C BC #### [facility] [place] Laboratory [address] [place] [address] Dr. Yaneth Walton Hemoglobin (Bld) [Mass/Vol] 13.4 g/dL Normal 12.0-16.0 [facility] Comment on above: Performed By: #### C BC #### [facility] Laboratory [address] [address] [address] Yaneth Walton IG # 0.01 10e3/ul Normal 0.00-0.03 [facility] Comment on above: Performed By: #### C BC #### [facility] [place] Laboratory [address] [address] [address] Yaneth Walton IG % 0.2 % Normal 0.0-0.5 [facility] Comment on above: Performed By: #### C BC #### [facility] [place] Laboratory [address] [place] [address] Dr. Yaneth Walton LYMPH # 1.0 103/ul Critically low 1.2-3.8 [facility] Comment on above: Performed By: #### C BC #### [facility] Laboratory [address] [place] [address] Dr. Yaneth Walton Lymphocytes/100 WBC (Bld) 18.0 % Critically low 20.5-60.0 [facility] Comment on above: Performed By: #### C BC #### [facility] [place] Laboratory [address] [place] [address] Dr. Yaneth Walton MANUAL DIFF REQ NO Normal [facility] Comment on above: Performed By: #### C BC #### [facility] Laboratory [address] [place] [address] Dr. Yaneth Walton MCH (RBC) [Entitic mass] 30.5 pg Normal 26.7-34.0 [facility] Comment on above: Performed By: #### C BC #### [facility] Laboratory [address] [place] [address] Dr. Yaneth Walton MCHC (RBC) [Mass/Vol] 31.9 g/dL Normal 29.9-35.2 [facility] Comment on above: Performed By: #### C BC #### [facility] [place] Laboratory [address] [place] [address] Dr. Yaneth Walton MCV (RBC) [Entitic vol] 95.7 fL Normal 81.0-99.0 [facility] Comment on above: Performed By: #### C BC #### [facility] Laboratory [address] [address] [address] Yaneth Walton MONO # 0.5 103/ul Normal 0.3-0.8 [facility] Comment on above: Performed By: #### C BC #### [facility] Laboratory [address] [place] [address] Dr. Yaneth Walton Monocytes/100 WBC (Bld) 8.7 % Normal 1.7-12.0 [facility] Comment on above: Performed By: #### C BC #### [facility] Laboratory [address] [place] [address] Dr. Yaneth Walton NEUT # 3.8 103/ul Normal 1.4-6.5 [facility] Comment on above: Performed By: #### C BC #### [facility] Laboratory [address] [place] [address] Dr. Yaneth Walton Neutrophils/100 WBC (Bld) 70.0 % Normal 43.0-75.0 [facility] Comment on above: Performed By: #### C BC #### [facility] Laboratory [address] [place] [address] Dr. Yaneth Walton Platelet mean volume (Bld) [Entitic vol] 10.8 fL Normal 9.5-13.5 [facility] Comment on above: Performed By: #### C BC #### [facility] Laboratory [address] [place] [address] Dr. Yaneth Walton PLT 213 103/ul Normal 150-450 [facility] [place] Comment on above: Performed By: #### C BC #### [facility] Laboratory [address] [place] [address] Dr. Yaneth Walton RBC 4.39 106/ul Normal 4.20-5.40 [facility] [place] Comment on above: Performed By: #### C BC #### [facility] [place] Laboratory [address] [place] [address] Dr. Yaneth Walton WBC 5.4 103/ul Normal 4.0-11.0 [facility] [place] Comment on above: Performed By: #### C BC #### [facility] [place] Laboratory [address] [place] [address] Dr. Yaneth Walton CREATININEon 12-21-2021 Creatinine [Mass/Vol] 0.87 mg/dL Normal 0.55-1.02 [facility] [place] Comment on above: Performed By: #### C ROMEO #### [facility] Laboratory [address] [place] [address] Dr. Yaneth Walton EGFR-AF OMANI >60 Normal >=60 [facility] Comment on above: Performed By: #### C ROMEO #### [facility] [place] Laboratory [address] [place] [address] Dr. Yaneth Walton EGFR-NON AF OMANI >60 Normal >=60 [facility] Comment on above: Performed By: #### C ROMEO #### [facility] Laboratory [address] [place] [address] Dr. Yaneth Walton SED RATE [facility] 2021 SED RATE 10 mm/hr Normal <=30 [facility] Comment on above: Performed By: #### S EDR #### [facility] Laboratory [address] [place] [address] Dr. Yaneth Walton UA RANDOM W/MICROSCOPICon BACTERIA NONE SEEN Normal NONE SEEN [facility] [place] Comment on above: Performed By: #### C ROMEO #### [facility] Laboratory [address] [place] [address] Dr. Yaneth Walton Bilirubin Ql (U) Negative Normal NEGATIVE [facility] Comment on above: Performed By: #### C ROMEO #### [facility] Laboratory [address] [place] [address] Dr. Yaneth Walton CAST NONE SEEN Normal NONE SEEN [facility] [place] Comment on above: Performed By: #### C ROMEO #### [facility] Laboratory [address] [place] [address] Dr. Yaneth Walton Clarity (U) CLEAR Normal CLEAR [facility] [place] Comment on above: Performed By: #### C ROMEO #### [facility] Laboratory [address] [place] [address] Dr. Yaneth Walton Color (U) LT. YELLOW Normal YELLOW [facility] [place] Comment on above: Performed By: #### C ROMEO #### [facility] Laboratory [address] [place] [address] Dr. Yaneth Walton Crystals LM Nom (Urine sed) NONE SEEN Normal NONE SEEN [facility] Comment on above: Performed By: #### C ROMEO #### [facility] Laboratory [address] [place] [address] Dr. Yaneth Walton Epithelial cells LM Ql (Urine sed) FEW Abnormal NONE SEEN /RARE [facility] [place] Comment on above: Performed By: #### C ROMEO #### [facility] Laboratory [address] [place] [address] Dr. Yaneth Walton Glucose Ql (U) Negative Normal NEGATIVE The [facility] Comment on above: Performed By: #### C ROMEO #### [facility] Laboratory [address] [place] [address] Dr. Yaneth Walton Hemoglobin Ql (U) Negative Normal NEGATIVE [facility] Comment on above: Performed By: #### C ROMEO #### [facility] Laboratory [address] [place] [address] Dr. Yaneth Walton Ketones Ql (U) Negative Normal NEGATIVE The [facility] Comment on above: Performed By: #### C ROMEO #### [facility] Laboratory [address] [place] [address] Dr. Yaneth Walton LEUKOCYTES TRACE Abnormal NEGATIVE [facility] Comment on above: Performed By: #### C ROMEO #### [facility] Laboratory [address] [place] [address] Dr. Yaneth Walton MUCOUS NONE SEEN Normal NONE SEEN [facility] Comment on above: Performed By: #### C ROMEO #### [facility] Laboratory [address] [place] [address] Dr. Yaneth Walton Nitrite Ql (U) Negative Normal NEGATIVE The [facility] Comment on above: Performed By: #### C ROMEO #### [facility] Laboratory [address] [place] [address] Dr. Yaneth Walton pH (U) 6.0 [pH] Normal 5-9 [facility] Comment on above: Performed By: #### C ROMEO #### [facility] Laboratory [address] [place] [address] Dr. Yaneth Walton RBC NONE SEEN Abnormal 0-2 [facility] [place] Comment on above: Performed By: #### C ROMEO #### [facility] Laboratory [address] [place] [address] Dr. Yaneth Walton SPEC GRAVITY 1.010 Normal 1.005-<=1.02 5 [facility] Comment on above: Performed By: #### C ROMEO #### [facility] Laboratory [address] [place] [address] Dr. Yaneth Walton UA PROTEIN Negative Normal NEGATIVE/ TRACE [facility] Comment on above: Performed By: #### C ROMEO #### [facility] Laboratory [address] [place] [address] Dr. Yaneth Walton Urobilinogen Qn (U) 0.2 {Ruth Ann'U}/dL Normal 0.2 - 1.0 [facility] Comment on above: Performed By: #### C ROMEO #### [facility] [place] Laboratory [address] [place] [address] Dr. Yaneth Walton WBC 0-2 Abnormal NONE SEEN [facility] Comment on above: Performed By: #### C ROMEO #### [facility] Laboratory [address] [place] [address] Dr. Yaneth Walton PTH INTACTon 08-20-2021 PTH, Intact 44 pg/mL Normal 15-65 [facility] Comment on above: Performed By: #### B ETA2M #### [facility] Laboratory [address] [place] [address] Dr. Yaneth Walton FREE T3on 08-19-2021 FREE T3 2.44 pg/mlL Normal 2.18-3.98 [facility] Comment on above: Performed By: #### B ETA2M #### [facility] Laboratory [address] [place] [address] Dr. Yaneth Walton FREE T4on 08-19-2021 Free T4 [Mass/Vol] 1.11 ng/dL Normal 0.76-1.46 [facility] Comment on above: Performed By: #### B ETA2M #### [facility] Laboratory [address] [place] [address] Dr. Yaneth Walton LIPID PROFILEon 08-19-2021 CHOL-HDL RATIO NORM SEE BELOW Normal [facility] Comment on above: Result Comment: 3.3 - 4.4 LOW RISK 4.4 - 7.1 AVERAGE RISK 7.1 - 11.0 MODERATE RISK >11.0 HIGH RISK Performed By: #### C ROMEO #### [facility] Laboratory [address] [address] [address] Yaneth Walton Cholesterol [Mass/Vol] 180 mg/dL Normal <=200 [facility] Comment on above: Performed By: #### C ROMEO #### [facility] Laboratory [address] [address] [address] Yaneth Walton Cholesterol in HDL [Mass/Vol] 76 mg/dL Critically high 40-60 [facility] Comment on above: Performed By: #### C ROMEO #### [facility] Laboratory [address] [address] [address] Yaneth Walton Cholesterol in LDL [Mass/Vol] 92.6 mg/dL Normal [facility] Comment on above: Performed By: #### C ROMEO #### [facility] Laboratory [address] [address] [address] Yaneth Walton Cholesterol.total/ Cholesterol in HDL [Mass ratio] 2.4 {ratio} Normal [facility] Comment on above: Performed By: #### C ROMEO #### [facility] Laboratory [address] [address] [address] Yaneth Walton HDL NORMAL > or = 60 mg/dl - LO W CARDIOVASCULAR RISK <40 mg/dl - HIGH CARDIOVASCULAR RISK Normal [facility] Comment on above: Performed By: #### C ROMEO #### [facility] Laboratory [address] [address] [address] Yaneth Walton LDL CALC NORMAL SEE BELOW Normal [facility] Comment on above: Result Comment: <100 mg/dl OPTIMAL 100 - 129 mg/dl NEAR OR ABOVE OPTIMAL 130 - 159 mg/dl BORDERLINE HIGH 160 - 189 mg/dl HIGH >190 mg/dl VERY HIGH Performed By: #### C ROMEO #### [facility] Laboratory [address] [address] [address] Yaneth Walton Triglyceride [Mass/Vol] 57 mg/dL Normal <=150 [facility] Comment on above: Performed By: #### C ROMEO #### [facility] Laboratory [address] [address] [address] Yaneth Walton VLDL CALC 11.4 mg/dL Normal [facility] Comment on above: Performed By: #### C ROMEO #### [facility] Laboratory [address] [address] [address] Yaneth Walton MG MAMM SCREEN 3D SONY CADon 08-19-2021 MG MAMM SCREEN 3D SONY CAD Patient: MISTY PEREZ Exam Date: 08/19/2021 : 1950 Gender:F Ordering : DR CAROL KENNEDY . Admission #: [id number] Family : Order #: [id number] CLICK HERE TO VIEW EXAM RADIOLOGY REPORT [...] colon cancer at age 71. LOCATION: [facility] BREAST COMPOSITION: Heterogeneously dense,which may obscure small [...] Acosta M.D. on 08/19/2021 at 12:07 Normal [facility] TSHon 08-19-2021 TSH 0.181 uIU/mL Critically low 0.358-3.740 [facility] Comment on above: Performed By: #### B ETA2M #### [facility] Laboratory [address], [place] [address] Dr. Yaneth Walton VITAMIN D 25 OHon 08-19-2021 VIT D 25-OH 51.8 ng/mL Normal [facility] Comment on above: Performed By: #### B ETA2M #### [facility] Laboratory [address] [place], [place] [address] Dr. Yaneth Walton VIT D RANGES SEE BELOW Normal [facility] Comment on above: Result Comment: <20 ng/mL Vit D deficient 20 - <30 ng/mL Vit D insufficient 30 - 100 ng/mL Vit D sufficient >100 ng/mL Potential Toxicity Performed By: #### B ETA2M #### [facility] Laboratory [address] [place], [place] [address] Dr. Yaneth Walton [facility] Surgical Pathology Depar tmenton 08-04-2021 [facility] Surgical Pathology Department Name MISTY PEREZ Pathologist: TONYA CARRERA DMD Date of Procedure: 08/04/2021 Date Received: 08/08/2021 Date Reported 08/12/2021 Submitting Physician: LIZETH LAYTON DDS Location: [facility] Other External # FINAL DIAGNOSIS A. ATTACHED GINGIVA OF TEETH #[id number], EXCISION: -- MILD EPITHELIAL DYSPLASIA (MULTIPLE LEVELS EXAMINED) ICD-10/CPT: K13.21/63995 Electronically Signed Out By TONYA CARRERA DMD/SOPHYS By the signature on this report, the individual or group listed as making the Final Interpretation/Diagnosis certifies that they have reviewed this case. Diagnostic interpretation performed at [facility] [address] [facility] [address] Microscopic Description: The sections show a fragment [...] entirely submitted in one cassette. [facility] rcc/08/08/2021 [facility] Department of Pathology [address] [place] [id number] Normal [facility] Comment on above: Performed By: #### U HCS #### [facility] Surgical Pathology Department [id number] [place] [id number] IMMUNOFIXATION (MG), SERUMo n 07-11-2021 IMMUNOFIXATION RESULT Comment Abnormal [facility] Comment on above: Result Comment: Immu nofixation shows IgG monoclonal protein with lambda light chain specificity. Performed By: #### C ROMEO #### [facility] Laboratory [address] [address] [address] Yaneth Walton Immunoglobulin A, Qn, Serum 113 mg/dL Normal 87-352 [facility] Comment on above: Performed By: #### C ROMEO #### [facility] Laboratory [address] [address] [address] Yaneth Walton Immunoglobulin G, Qn, Serum 1031 mg/dL Normal 586-1602 [facility] Comment on above: Performed By: #### C ROMEO #### [facility] Laboratory [address] [address] [address] Yaneth Watlon Immunoglobulin M, Qn, Serum 42 mg/dL Normal 26-217 [facility] Comment on above: Performed By: #### C ROMEO #### [facility] Laboratory [address] [address] [address] Yaneth Walton BETA-2 MICROGLOBINon 022 Beta-2 Microglobulin, Serum 2.2 mg/L Normal 0.6-2.4 [facility] Comment on above: Result Comment: Siem [facility] AlphaStripete 2000 Immunochemiluminometric assay (ICMA) . Values obtained with different assay methods or kits cannot be used interchangeably. Results cannot be interpreted as absolute evidence of the presence or absence of malignant disease. Performed By: #### B ETA2M #### [facility] Laboratory [address] [place] [address] Dr. Yaneth Walton FREE LIGHT CHAINS PLUS RATIO on 07-09-2021 Free [place] Lt Chains,S 34.7 mg/L Critically high 3.3-19.4 [facility] Comment on above: Performed By: #### F VALENTINLIT #### [facility] Laboratory [address] [place] [address] Dr. Yaneth Walton Free Lambda Lt Chains,S 50.1 mg/L Critically high 5.7-26.3 [facility] Comment on above: Performed By: #### F KELLYT #### [facility] Laboratory [address] [place] [address] Dr. Yaneth Walton [place]/Lambda Ratio, S 0.69 Normal 0.26-1.65 [facility] Comment on above: Performed By: #### F KELLYT #### [facility] Laboratory [address] [place] [address] Dr. Yaneth Walton IMMUNOGLOBULINS IGA/IGM/IGG QUANTITATIVEon 07-08-2021 Immunoglobulin A, Qn, Serum 111 mg/dL Normal 87-352 [facility] Comment on above: Performed By: #### I MMUNGL #### [facility] Laboratory [address] [place] [address] Dr. Yaneth Walton Immunoglobulin G, Qn, Serum 1037 mg/dL Normal [phone] [facility] Comment on above: Performed By: #### I MMUNGL #### [facility] Laboratory [address] [place] [address] Dr. Yaneth Walton Immunoglobulin M, Qn, Serum 44 mg/dL Normal 26-217 [facility] Comment on above: Performed By: #### I MMUNGL #### [facility] Laboratory [address] [place] [address] Dr. Yaneth Walton CBC AUTO DIFFon 07-07-2021 BASO # 0.0 103/ul Normal 0.0-0.1 [facility] Comment on above: Performed By: #### C BC #### [facility] Laboratory [address] [place] [address] Dr. Yaneth Walton Basophils/100 WBC (Bld) 0.7 % Normal 0.2-2.0 [facility] Comment on above: Performed By: #### C BC #### [facility] Laboratory [address] [place] [address] Dr. Yaneth Walton EO # 0.2 103/ul Normal 0.0-0.7 [facility] [facility] [place] Comment on above: Performed By: #### C BC #### [facility] [place] [facility] [address] [place] [address] Dr. Yaneth Walton Eosinophils/100 WBC (Bld) 2.9 % Normal 0.9-7.0 [facility] Comment on above: Performed By: #### C BC #### [facility] [place] [facility] [address] [place] [address] Dr. Yaneth Walton Erythrocyte distribution width (RBC) [Ratio] 12.9 % Normal 11.0-15.0 [facility] Comment on above: Performed By: #### C BC #### [facility] [place] [facility] [address] [place] [address] Dr. Yaneth Walton Hematocrit (Bld) [Volume fraction] 43.1 % Normal 36.0-48.0 [facility] Comment on above: Performed By: #### C BC #### [facility] [place] [facility] [address] [place] [address] Dr. Yaneth Walton Hemoglobin (Bld) [Mass/Vol] 13.8 g/dL Normal 12.0-16.0 [facility] Comment on above: Performed By: #### C BC #### [facility] [place] [facility] [address] [place] [address] Dr. Yaneth Walton IG # 0.02 10e3/ul Normal 0.00-0.03 [facility] Comment on above: Performed By: #### C BC #### [facility] [place] [facility] [address] [place] [address] Dr. Yaneth Walton IG % 0.4 % Normal 0.0-0.5 [facility] [place] Comment on above: Performed By: #### C BC #### [facility] [place] [facility] [address] [place] [address] Dr. Yaneth Walton LYMPH # 1.3 103/ul Normal 1.2-3.8 [facility] [place] Comment on above: Performed By: #### C BC #### [facility] [place] [facility] [address] [place] [address] Dr. Yaneth Walton Lymphocytes/100 WBC (Bld) 22.9 % Normal 20.5-60.0 [facility] Comment on above: Performed By: #### C BC #### [facility] [place] [facility] [address] [place] [address] Dr. Yaneth Walton MANUAL DIFF REQ NO Normal [facility] Comment on above: Performed By: #### C BC #### [facility] [place] [facility] [address] [place] [address] Dr. Yaneth Walton MCH (RBC) [Entitic mass] 30.3 pg Normal 26.7-34.0 [facility] Comment on above: Performed By: #### C BC #### [facility] [place] [facility] [address] [place] [address] Dr. Yaneth Walton MCHC (RBC) [Mass/Vol] 32.0 g/dL Normal 29.9-35.2 [facility] [place] Comment on above: Performed By: #### C BC #### [facility] [place] [facility] [address] [place] [address] Dr. Yaneth Walton MCV (RBC) [Entitic vol] 94.5 fL Normal 81.0-99.0 [facility] [place] Comment on above: Performed By: #### C BC #### [facility] [place] [facility] [address] [place] [address] Dr. Yaneth Walton MONO # 0.5 103/ul Normal 0.3-0.8 [facility] [place] Comment on above: Performed By: #### C BC #### [facility] [place] [facility] [address] [place] [address] Dr. Yaneth Walton Monocytes/100 WBC (Bld) 8.7 % Normal 1.7-12.0 [facility] [place] Comment on above: Performed By: #### C BC #### [facility] [place] [facility] [address] [place] [address] Dr. Yaneth Walton NEUT # 3.5 103/ul Normal 1.4-6.5 [facility] Comment on above: Performed By: #### C BC #### [facility] [place] [facility] [address] [place] [address] Dr. Yaneth Walton Neutrophils/100 WBC (Bld) 64.4 % Normal 43.0-75.0 [facility] Comment on above: Performed By: #### C BC #### [facility] [place] [facility] [address] [place] [address] Dr. Yaneth Walton Platelet mean volume (Bld) [Entitic vol] 11.0 fL Normal 9.5-13.5 [facility] [place] Comment on above: Performed By: #### C BC #### [facility] [place] [facility] [address] [place] [address] Dr. Yaneth Walton PLT 206 103/ul Normal 150-450 [facility] Comment on above: Performed By: #### C BC #### [facility] [place] [facility] [address] [place] [address] Dr. Yaneth Walton RBC 4.56 106/ul Normal 4.20-5.40 [facility] [place] Comment on above: Performed By: #### C BC #### [facility] [place] [facility] [address] [place] [address] Dr. Yaneth Walton WBC 5.5 103/ul Normal 4.0-11.0 [facility] Comment on above: Performed By: #### C BC #### [facility] [place] [facility] [address] [place] [address] Dr. Yaneth Walton PROF 14(COMP METB)on 022 Albumin [Mass/Vol] 3.7 g/dL Normal 3.4-5.0 [facility] Comment on above: Performed By: #### B ETA2M #### [facility] [place] [facility] [address] [place] [address] Dr. Yaneth Walton Albumin/Globulin [Mass ratio] 1.0 {ratio} Normal [facility] Comment on above: Performed By: #### B ETA2M #### [facility] [place] [facility] [address] [place], [place] [id number] Dr. Yaneth Walton ALP [Catalytic activity/Vol] 103 U/L Normal 46-116 [facility] Comment on above: Performed By: #### B ETA2M #### [facility] [place] [facility] [address] [place] [address] Dr. Yaneth Walton ALT [Catalytic activity/Vol] 28 U/L Normal 14-59 [facility] Comment on above: Performed By: #### B ETA2M #### [facility] [place] [facility] [address] [address] [address] Yaneth Walton Anion gap [Moles/Vol] 12.0 mmol/L Normal [facility] Comment on above: Performed By: #### B ETA2M #### [facility] [place] [facility] [address] [place] [address] Dr. Yaneth Walton AST [Catalytic activity/Vol] 26 U/L Normal 15-37 [facility] Comment on above: Performed By: #### B ETA2M #### [facility] [place] [facility] [address] [place] [address] Dr. Yaneth Walton Bilirubin [Mass/Vol] 0.7 mg/dL Normal 0.2-1.0 [facility] Comment on above: Performed By: #### B ETA2M #### [facility] [place] [facility] [address] [place] [address] Dr. Yaneth Walton Calcium [Mass/Vol] 8.6 mg/dL Normal 8.5-10.1 [facility] Comment on above: Performed By: #### B ETA2M #### [facility] [place] [facility] [address] [place] [address] Dr. Yaneth Walton Chloride [Moles/Vol] 103 mmol/L Normal 98-107 [facility] Comment on above: Performed By: #### B ETA2M #### [facility] [place] [facility] [address] [place] [address] Dr. Yaneth Walton CO2 [Moles/Vol] 28.7 mmol/L Normal 21.0-32.0 [facility] Comment on above: Performed By: #### B ETA2M #### [facility] [place] [facility] [address] [place] [address] Dr. Yaneth Walton Creatinine [Mass/Vol] 0.84 mg/dL Normal 0.55-1.02 [facility] [place] Comment on above: Performed By: #### B ETA2M #### [facility] [place] [facility] [address] [place] [address] Dr. Yaneth Walton EGFR-AF OMANI >60 Normal >=60 [facility] Comment on above: Performed By: #### B ETA2M #### [facility] [place] [facility] [address] [address] [address] Yaneth Walton EGFR-NON AF OMANI >60 Normal >=60 [facility] Comment on above: Performed By: #### B ETA2M #### [facility] [place] [facility] [address] [place] [address] Dr. Yaneth Walton Globulin (S) [Mass/Vol] 3.7 g/dL Normal [facility] Comment on above: Performed By: #### B ETA2M #### [facility] [place] [facility] [address] [place] [address] Dr. Yaneth Walton Glucose [Mass/Vol] 90 mg/dL Normal 74-106 [facility] Comment on above: Performed By: #### B ETA2M #### [facility] [place] [facility] [address] [place] [address] Dr. Yaneth Walton Potassium [Moles/Vol] 3.7 mmol/L Normal 3.5-5.1 [facility] [place] Comment on above: Performed By: #### B ETA2M #### [facility] [place] [facility] [address] [place] [address] Dr. Yaneth Walton Protein [Mass/Vol] 7.4 g/dL Normal 6.1-8.2 [facility] Comment on above: Performed By: #### B ETA2M #### [facility] [place] [facility] [address] [place] [address] Dr. Yaneth Walton Sodium [Moles/Vol] 140 mmol/L Normal 136-145 [facility] Comment on above: Performed By: #### B ETA2M #### [facility] [place] [facility] [address] [place] [address] Dr. Yaneth Walton Urea nitrogen [Mass/Vol] 22.0 mg/dL Critically high 7.0-18.0 [facility] Comment on above: Performed By: #### B ETA2M #### [facility] [place] [facility] [address] [address] [address] Yaneth Walton Urea nitrogen/Creatinin e [Mass ratio] 26.2 mg/mg Normal [facility] Comment on above: Performed By: #### B ETA2M #### [facility] [place] [facility] [address] [address] [address] Yaneth Walton Encounters Encounter Date Encounter Type Care Provider Facility Start: 12-27-2023 ambulatory Miguel Allen Facility :[facility] Start: 01-29-2023 End: 01-30-2023 ambulatory Alice Ryan MD Facility:[facility] Start: 12-25-2022 End: 12-26-2022 [facility] Start: 12-25-2022 End: 12-26-2022 ambulatory Alice Ryan MD Facility:[facility] Start: 11-27-2022 End: 11-28-2022 ambulatory Alice Ryan MD Facility:[facility] Start: 11-13-2022 End: 11-14-2022 ambulatory Alice Ryan MD Facility:[facility] Start: 07-24-2022 End: 07-25-2022 ambulatory Miguel Allen Facility[facility] Start: 06-22-2022 ambulatory Miguel Allen Facility:[facility] Start: 06-21-2022 End: 06-22-[address] CAROL [...] Start: 07-14-2021 End: 07-15-2021 ambulatory Tatiana Douglas Facility:[facility] Start: 07-07-2021 End: 07-08-[address] TATIANA DOUGLAS Facility: Payers Date Payer Category Payer Medicare 2022 Unknown 2017 Unknown [id number] 2016 Self-pay [id number] 1959 Medicare [id number] 1959 Unknown [id number] 1950 Unknown [id number] 2.16.84 0.1.867308.3.579.2.593 1950 Unknown [id number] 2.16.84 0.1.921806.3.579.2.593 1950 Unknown [id number] 2.16.84 0.1.586949.3.579.2.593 1950 Unknown [id number] 2.16.84 0.1.525655.3.579.2.593 1950 Unknown [id number] 2.16.84 0.1.066691.3.579.2.593 1950 Unknown [id number] 2.16.84 0.1.579481.3.579.2.593 1950 Unknown [id number] 2.16.84 0.1.129915.3.579.2.593 1950 Unknown [id number] 2.16. 840.1.802357.3.579.2.196 1950 Unknown [id number] 2.16. 840.1.609143.3.579.2.196 1950 Unknown [id number] 2.16. 840.1.330174.3.579.2.196 1950 Unknown [id number] 2.16. 840.1.225827.3.579.2.196 1950 Unknown [id number] 2.16.8 40.1.148157.3.579.2.727 1950 Unknown [id number] 2.16.8 40.1.393376.3.579.2.727 1950 Unknown [id number] 2.16.8 40.1.832485.3.579.2.727 1950 Unknown [id number] 2.16.8 40.1.500504.3.579.2.727 Unknown [facility] [id number] 2.16.8 40.1.171045.3.579.2.531 Social History Date Type Detail Facility Tobacco smoking stat [facility] Unknown if ever smoked [facility] Work Phone: Start: 1950 Sex Assigned At Female F [facility] Evaluation note Note Date & Type Note Facility Evaluation note No assessment information availa ble [facility] Work Phone: Summary Purpose Family History No Family History Records Found Relationship Condition Age at Onset Recorded Date/T yenni father Malignant neoplasm of pancreas Unknown Advance Directives No Advanced Directives Records FoundNo Advanced Directives Records FoundNo Advanced Directives Records FoundNo Advanced Directives Records FoundNo Advanced Directives Records Found Additional Source Comments INFORMATION SOURCE (unrecogn ized section and content) DATE CREATED AUTHOR 08/13/2021 [facility] DATE CREATED AUTHOR AUTHOR'S ORGANIZ ATION 07/05/2022 [facility] DATE CREATED AUTHOR AUTHOR'S ORGANIZ ATION 02/02/2023 [facility] DATE CREATED AUTHOR AUTHOR'S ORGANIZ ATION 05/26/2023 [facility] DATE CREATED AUTHOR AUTHOR'S ORGANIZ ATION 06/19/2023 [facility] Goals (unrecognized section and content) Goals may [...] BE BASED ON THE PRIMARY CLINICAL RECORDS. [facility] [employer] [facility]. provides no warranty or guarantee of the accuracy or completeness of information in this document.
[2023-06-25 10:19] LABS: Basophils Absolute Auto 0.1 10^3/uL (0.0-0.1); Basophils Percent Auto 1.2 % (0.2-2.0); Eosinophils Absolute Auto 0.2 10^3/uL (0.0-0.7); Eosinophils Percent Auto 3.1 % (0.9-7.0); Hematocrit 41.3 % (36.0-48.0); Immature Granulocytes Abs Auto 0.01 10^3/uL (0.00-0.03); Immature Granulocytes Pct Auto 0.2 % (0.0-0.5); Lymphocytes Absolute Auto 1.1 10^3/uL (1.2-3.8); Mean Corpuscular HGB Conc 31.5 g/dL (29.9-35.2); Mean Corpuscular Hemoglobin 29.7 pg (26.7-34.0); Mean Corpuscular Volume 94.3 fL (81.0-99.0); Mean Platelet Volume 11.4 fL (9.5-13.5); Monocytes Absolute Auto 0.4 10^3/uL (0.3-0.8); Monocytes Percent Auto 8.5 % (1.7-12.0); Neutrophils Absolute Auto 3.4 10^3/uL (1.4-6.5); Platelet Count 208 10^3/uL (150-450); Red Blood Count 4.38 10^6/uL (4.20-5.40); Red Cell Distribution Width 12.9 % (11.0-15.0); White Blood Count 5.2 10^3/uL (4.0-11.0)
[2023-06-25 10:35] LABS: Estimated GFR (African America >60 (>=60); Estimated GFR (Non-African Ame >60 (>=60)
[2023-06-25 10:36] LABS: Bilirubin Urine NEGATIVE (NEGATIVE); Blood Urine NEGATIVE (NEGATIVE); Clarity Urine CLEAR (CLEAR); Color Urine LT. YELLOW (YELLOW); Glucose Urine UA NEGATIVE (NEGATIVE); Ketones Urine NEGATIVE (NEGATIVE); Leukocyte Esterase Urine TRACE (NEGATIVE); Nitrite Urine NEGATIVE (NEGATIVE); Protein Urine NEGATIVE (NEG/TRACE); Urobilinogen Urine 0.2 EU/dL (0.2-1.0)
[2023-06-25 10:37] LABS: Erythrocyte Sedimentation Rate 16 mm/hr (<=30)
[2023-06-25 10:47] LABS: Bacteria Urine TRACE #/HPF (NONE SEEN); Mucus Urine NONE SEEN (NONE SEEN); RBC Urine NONE SEEN #/HPF (0-2); Squamous Epithelial Cell Urine FEW #/LPF (NONE/RARE)
[2023-06-26 07:09] LABS: Complement C3, Serum 139 mg/dL (82-167); Complement C4, Serum 27 mg/dL (12-38)
== END 2023-06-25 09:14 | disposition home or self-care (01) ==
LOC: LAB 09:14
PROVIDERS: PCP Family Medicine; Visit Provider Internal Medicine Rheumatology
DX: M35.9 Systemic involvement of connective tissue, unspecified (principal)
CPT/HCPCS: 36415; 81001; 82565; 85025; 85652; 86160

== ENCOUNTER 2023-08-24 07:55 | Outpatient (OUT) | payer MEDICARE, OTHER, SELFPAY ==
--- NOTE | 2023-08-24 07:57 | MM_ITS ---
Patient Name: SINA VALENCIA MR#: [id number] : 1950 Exam Date: 08/24/2023 Ordering Doctor: DR. JEAN HAIR . RADIOLOGY REPORT PROCEDURE: MM TOMOSYNTHESIS SCREENING BI COMPARISON: MG MAMM SCREEN 3D SONY CAD, 08/19/2021. MM TOMOSYNTHESIS SCREENING BI, 08/21/2022. INDICATIONS: Screening Calculator Name NCI Breast Cancer Risk Assessment Tool 5 Year Breast Cancer Risk 2.00% Lifetime Breast Cancer Risk 5.10% Personal Breast Cancer No Personal Ovarian Cancer No Treatments None Family Cancers Father with pancreatic cancer at age 81; Grandmother-maternal with colon cancer at age 70. LOCATION: [facility] BREAST COMPOSITION: The breasts are heterogeneously dense,which may obscure small masses. FINDINGS: DIAGNOSTIC CATEGORY 2--BENIGN FINDING. NO CHANGE FROM COMPARISON. Scattered benign-appearing nodules are present. Scattered benign-appearing calcifications are present. Scattered benign-appearing lymph nodes are present. RIGHT BREAST: No significant suspicious finding. Clusters of stable calcifications upper outer quadrant. LEFT BREAST: No significant suspicious finding. Stable micro clip marker upper outer quadrant, posterior breast RECOMMENDATIONS: ROUTINE MAMMOGRAM AND CLINICAL EVALUATION IN 12 MONTHS. PLEASE NOTE: A NORMAL MAMMOGRAM DOES NOT EXCLUDE THE POSSIBILITY OF BREAST CANCER. A CLINICALLY SUSPICIOUS PALPABLE LUMP SHOULD BE BIOPSIED. Dictated by: Soto Perry MD on 08/24/2023 at 10:41 Approved by: Soto Perry MD on 08/24/2023 at 10:42
--- OUTSIDE RECORDS SUMMARY | 2023-08-24 08:00 | XMS_ITS ---
Patient Summarization (C-CDA 2.1 CCD) Created on: August 24, 2023 Misty Perez : 1950 Sex: Female Author Organization Sample organization Care Team Providers Care Command Center Officer Name Role Phone KENNEDY ., DR CAROL Vyas Primary Care Unavailable KELLY, LEIGH Admitting Unavailable KELLY, LEIGH Attending Unavailable MISAEL, DR TATIANA Tracy Admitting Unavailable KENNEDY ., DR CAROL Vyas Primary Care Unavailable MISAEL, DR TATIANA Tracy Attending Unavailable MISAEL, DR TATIANA Tracy Consulting Unavailable KENNEDY ., DR CAROL Vyas Primary Care Unavailable HALADANasreen, DR SINGH Consulting Unavailable HALADANasreen, DR SINGH Admitting Unavailable HALADANasreen, DR SINGH Attending Unavailable KENNEDY ., DR CAROL Vyas Admitting Unavailable KENNEDY ., DR CAROL Vyas Attending Unavailable KENNEDY ., DR CAROL Vyas Consulting Unavailable KENNEDY ., DR CAROL Vyas Primary Care Unavailable ROSITA, DR HEATHER Parekh Consulting Unavailable MARIANNE, DR SINGH Consulting Unavailable KENNEDY ., DR CAROL Vyas Admitting Unavailable KENNEDY ., DR CAROL Vyas Attending Unavailable KENNEDY ., DR CAROL Vyas Consulting Unavailable KENNEDY ., DR CAROL Vyas Primary Care Unavailable ROSITA, DR HEATHER Parekh Consulting Unavailable MARIANNE, DR SINGH Consulting Unavailable KENNEDY ., DR CAROL Vyas Primary Care Unavailable MARIANNE, DR SINGH Admitting Unavailable MARIANNE, DR SINGH Attending Unavailable KENNEDY ., DR CAROL Vyas Admitting Unavailable KENNEDY ., DR CAROL Vyas Attending Unavailable KENNEDY ., DR CAROL Vyas Consulting Unavailable KENNEDY ., DR CAROL Vyas Primary Care Unavailable DR JAMAL ACOSTA Consulting Unavailable Connor BRADFORD, Alice Miranda Attending Unavailable Connor BRADFORD, Alice Miranda Attending Unavailable Connor BRADFORD, Alice Miranda Attending Unavailable Connor BRADFORD, Alice Miranda Attending Unavailable MD Tatiana Douglas Attending Provider [phone] MD Miguel Allen Primary Care Provider Miguel Allen. Attending Unavailable Miguel Allen. Attending Unavailable Miguel Allen Attending Unavailable Miguel Allen Primary Care Unavailable Tatiana Douglas Attending Unavailable Misael, Tatiana Admitting Unavailable MisaelTatiana gomes Attending Unavailable Misael, Tatiana Admitting Unavailable Miguel Allen Primary Care Unavailable Allergies Allergy Classification Reported Allergen(s) Allergy Type Date of Onset Reaction(s) Facility Anti-Epileptic Agents (1 source) gabapentin Drug Allergy 08-08-19 24 Insomnia [facility] Dihydrofolate Reductase Inhibitors (antibiotic) (1 source) Trimethoprim Drug Allergy 08-08-19 [facility] Latex (1 source) Latex Substance Allergy 08-08-19 blisters at site of contact [facility] Opioid Agonists (3 sources) Meperidine Drug Allergy 08-08-19 Nausea [facility] Sulfonamides (antibiotic) (1 source) Sulfamethoxazole Drug Allergy 08-08-19 [facility] (3 sources) gabapentin Drug Allergy 07-15-19 Insomnia [facility] Repository (1 source) Sulfamethoxazole / Trimethoprim Drug Allergy [facility] Repository (1 source) Sulfonamides (Antibiotic) Drug allergy (disorder) 08-21-19 15 [facility] Repository (3 sources) Latex; Translations: [latex] Allergy to substance 07-15-19 blisters at site of contact [facility] (3 sources) Meperidine; Translations: [meperidine] Drug Allergy 07-15-19 [facility] (4 sources) Morphine; Translations: [morphine] Drug Allergy 07-15-19 [facility] (3 sources) oxyCODONE; Translations: [oxycodone] Drug Allergy 07-15-19 [facility] (3 sources) Sulfamethoxazole; Translations: [sulfamethoxazole] Drug Allergy 07-15-19 [facility] (3 sources) Trimethoprim; Translations: [trimethoprim] Drug Allergy 07-15-19 [facility] (1 source) Acetaminophen / oxyCODONE; Translations: [Percocet] Drug Allergy [facility] Repository (1 source) gabapentin; Translations: [Neurontin] Drug Allergy [facility] Repository (1 source) Meperidine; Translations: [Demerol] Drug Allergy [facility] Repository (1 source) Sulfonamides (Antibiotic); Translations: [sulfa drugs] Propensity to adverse reactions (disorder) [facility] Repository (1 source) gabapentin Drug Allergy 08-08-19 [facility] Repository Encounters Encounter Date Encounter Type Care Provider Facility Start: 08-22-2023 ambulatory Tatiana Douglas Facility:[facility] Start: 08-09-2023 End: 08-09-2023 ambulatory Miguel Allen Facility:[facility] Start: 08-08-2023 End: 08-08-2023 Admission to same day surgery center MD Miguel Allen Work Phone: [facility] [place] Work Phone: Start: 08-08-2023 End: 08-08-2023 ambulatory MD Miguel Allen Work Phone: [facility] Work Phone: Start: 07-25-2023 End: 07-25-2023 ambulatory MD Miguel Allen Work Phone: [facility] Work Phone: Start: 07-25-2023 End: 07-25-2023 Patient encounter procedure MD Miguel Allen Work Phone: [facility] Ambulatory Work Phone: Start: 07-25-2023 Registered Recurring MD Miguel Allen Work Phone: [facility] Acute Work Phone: Start: 01-29-2023 End: 01-30-2023 ambulatory Alice Ryan MD Facility:[facility] [place] Start: 12-25-2022 End: 12-26-2022 ambulatory Alice Ryan MD Facility:[facility] [place] Start: 11-27-2022 End: 11-28-2022 ambulatory Alice Ryan MD Facility:[facility] [place] Start: 11-13-2022 End: 11-14-2022 ambulatory Alice Ryan MD Facility: [facility] Start: 06-21-2022 End: 06-22-[address] CAROL KENNEDY . Facility:[facility] Start: 04-21-2022 End: 06-09-[address] CAROL KENNEDY . Facility:[facility] Start: 02-10-2022 End: 02-11-[address] CAROL KENNEDY . Facility:[facility] Start: 02-03-2022 End: 02-04-[address] CAROL KENNEDY . Facility:[facility] Start: 12-21-2021 End: 12-22-[address] SAMANTHA LOPES Facility:[facility] Start: 08-19-2021 End: 08-20-[address] CAROL KENNEDY . Facility:[facility] Start: 07-07-2021 End: 07-08-[address] TATIANA DOUGLAS Facility:[facility] Medications Current Medications Medication Drug Class(es) Dates Sig (Normalized) Sig (Original) Carboxymethylcellulose Sodium (Refresh Tears) 0.5 % Drops (3 sources) Start: 12-20-19 Carboxymethylcellulose Sodium (Refresh Tears) 0.5 % Drops Active 1 DROPS OPHTHALMIC 4-12 TIMES PER DAY December 19, 2016 12:00am cholecalciferol 0.05 mg oral capsule (5 sources) Vitamin D Start: 07-25-19 24 take 50 ug by mouth once daily Cholecalciferol (Vitamin D3) Active 50 MCG PO Daily July 25, 2023 12:00am Start: 12-19-2016 End: 06-22-2017 take 1 tablet by mouth once daily Cholecalciferol (Vitamin D3) (Vitamin D3) 5,000 unit Tablet Discontinued 5000 UNIT PO Daily December 19, 2016 12:00am June 22, 2017 10:11am fluocinonide 0.0005 mg/mg topical ointment (2 sources) Corticosteroid Start: 07-25-2023 Fluocinonide Active 1 APPLIC TOPICAL Twice daily July 25, 2023 12:00am furosemide 20 mg oral tablet (3 sources) Loop Diuretic Start: 06-22-2017 take 20 mg by mouth once daily Furosemide Active 20 MG PO Daily June 22, 2017 12:00am hydroxychloroquine sulfate 200 mg oral tablet (3 sources) Antimalarial, Antirheumatic Agent Start: 12-19-2016 take 1 tablet by mouth twice daily Hydroxychloroquine (Plaquenil) 200 mg Tablet Active 200 MG PO Twice daily December 19, 2016 12:00am alternate once a day eod 200mg ibandronic acid 150 mg oral tablet (3 sources) Bisphosphonate Start: 12-19-2016 take 1 tablet by mouth every month Ibandronate (Boniva) 150 mg Tablet Active 150 MG PO every month December 19, 2016 12:00am ketoconazole 20 mg/ml topical cream (2 sources) Azole Antifungal Start: 07-25-2023 Ketoconazole Active 1 APPLIC TOPICAL Daily July 25, 2023 12:00am levothyroxine sodium 0.05 mg oral tablet (3 sources) l-Thyroxine Start: 12-19-2016 take 50 ug by mouth once daily Levothyroxine Active 50 MCG PO Daily December 19, 2016 12:00am lisinopril 10 mg oral tablet (3 sources) Angiotensin Converting Enzyme Inhibitor Start: 12-19-2016 take 10 mg by mouth once daily Lisinopril Active 10 MG PO Daily December 19, 2016 12:00am metroNIDAZOLE 7.5 mg/ml topical cream (2 sources) Nitroimidazole Antimicrobial Start: 07-25-2023 Metronidazole Active 1 APPLIC TOPICAL Daily July 25, 2023 12:00am naproxen sodium 220 mg oral tablet (2 sources) Nonsteroidal Anti-inflammatory Drug Start: 07-25-2023 take 220 mg by mouth twice daily Naproxen Sodium Active 220 MG PO Twice daily July 25, 2023 12:00am potassium chloride 10 meq extended release oral capsule (3 sources) Start: 06-22-2017 take 10 mEq by mouth once daily Potassium Chloride Active 10 MEQ PO Daily June 22, 2017 12:00am Completed/Discontinued Medications Medication Drug Class(es) Dates Sig (Normalized) Sig (Original) atorvastatin 10 mg oral tablet (6 sources) HMG-CoA Reductase Inhibitor Start: 12-19-2016 End: 10-15-2017 take 10 mg by mouth once daily Atorvastatin Discontinued 10 MG PO Daily June 22, 2017 12:00am October 15, 2017 10:46am chlorthalidone 25 mg oral tablet (3 sources) Thiazide-like Diuretic Start: 12-19-2016 End: 06-22-2017 take 12.5 mg by mouth once daily Chlorthalidone Discontinued 12.5 MG PO Daily December 19, 2016 12:00am June 22, 2017 10:11am omeprazole 20 mg delayed release oral capsule (3 sources) Proton Pump Inhibitor Start: 12-19-2016 End: 10-29-2017 take 20 mg by mouth once daily Omeprazole Discontinued 20 MG PO Daily December 19, 2016 12:00am October 29, 2017 9:35am Payers Date Payer Category Payer Self-pay [id number] 2023 Unknown [id number] 2022 Medicare 2022 Unknown 1959 Medicare [id number] 1959 Unknown [id number] 1950 Unknown [id number] 2.16.84 0.1.594271.3.579.2.593 1950 Unknown [id number] 2.16.84 0.1.436018.3.579.2.593 1950 Unknown [id number] 2.16.84 0.1.836552.3.579.2.593 1950 Unknown [id number] 2.16.84 0.1.107023.3.579.2.593 1950 Unknown [id number] 2.16.84 0.1.311396.3.579.2.593 1950 Unknown [id number] 2.16.84 0.1.182957.3.579.2.593 1950 Unknown [id number] 2.16.84 0.1.114427.3.579.2.593 1950 Unknown [id number] 2.16. 840.1.302571.3.579.2.196 1950 Unknown [id number] 2.16. 840.1.093057.3.579.2.196 1950 Unknown [id number] 2.16. 840.1.890022.3.579.2.196 1950 Unknown [id number] 2.16. 840.1.300833.3.579.2.196 1950 Unknown [id number] 2.16.8 40.1.793696.3.579.2.727 1950 Unknown [id number] 2.16.8 40.1.512872.3.579.2.727 1950 Unknown [id number] 2.16.8 40.1.732256.3.579.2.727 Unknown [facility] [id number] Unknown [id number] 2.16.8 40.1.719839.3.579.2.531 Unknown [id number] 2.16.8 40.1.183323.3.579.2.531 Plan of Treatment Date Care Activity Detail Author Start: 12-27-2023 ambulatory Ambulatory Facility:[facility] [place] Start: 08-08-2023 [facility] Start: 08-08-2023 Bone marrow sampling [facility] [id number] [Mass/volume] in Serum or Plasma [facility] Bone marrow sampling [facility] Ceruloplasmin [Mass/volume] in Serum or Plasma [facility] Copper measurement [facility] DXA Skeletal system. axial Views for bone density [facility] Patient Education [facility] Bone Marrow Aspiration or Biopsy Know your Meds [facility] Work Phone: [facility] Problems Active Problems Problem Classification Problem Date Documented Date Episodic/Chronic Disorders of lipid metabolism (4 sources) Pure hypercholesterolemia, unspecified; Translations: [PURE HYPERCHOLESTEROLEMIA UNSPEC] Onset: 2 Chronic Malaise and fatigue (2 sources) Weakness; Translations: [Other fatigue] Onset: 2 Episodic Neoplasms of unspecified nature or uncertain behavior (10 sources) Monoclonal gammopathy; Translations: [Monoclonal gammopathy of uncertain significance] Onset: 2 Chronic Nutritional deficiencies (1 source) Vitamin D deficiency, unspecified; Translations: [VITAMIN D DEFICIENCY UNSPECIFIED] Onset: 2 Chronic Osteoporosis (5 sources) Osteoporosis; Translations: [Age-related osteoporosis without current pathological fracture] 03-21-2023 Chronic Other bone disease and musculoskeletal deformities (3 sources) Osteopenia; Translations: [Other specified disorders of bone density and structure, unspecified site] 12-23-2016 Episodic Other connective tissue disease (1 source) Abnormal posture; Translations: [ABNORMAL POSTURE] Onset: 3 Episodic Other endocrine disorders (3 sources) Hyperparathyroidism; Translations: [Hyperparathyroidism, unspecified] 06-22-2017 Chronic Other nervous system disorders (2 sources) Peripheral nerve disease ; Translations: [Polyneuropathy, unspecified] 07-25-2023 Chronic Other nervous system disorders (2 sources) Polyneuropathy, unspecified; Translations: [Unspecified hereditary and idiopathic peripheral neuropathy] 07-25-2023 Chronic Other nervous system disorders (1 source) [...] Chronic Other nutritional; endocrine; and metabolic disorders (3 sources) Hypercalcemia; Translations: [Hypercalcemia] 12-22-2016 Chronic Residual codes; unclassified (3 sources) History of parathyroidectomy; Translations: [Other specified postprocedural states] 01-14-2021 Episodic Residual codes; unclassified (2 sources) Other specified postprocedural states; Translations: [Other postprocedural status] 07-25-2023 Episodic Spondylosis; intervertebral disc disorders; other back problems (8 sources) Radiculopathy, lumbosacral region; Translations: [Intervertebral disc disorders with radiculopathy, lumbar region] Onset: 2 Episodic Systemic lupus erythematosus and connective tissue disorders (13 sources) Systemic involvement of connective tissue, unspecified; 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] Onset: 2 Chronic Thyroid disorders (1 source) Autoimmune thyroiditis; Translations: [AUTOIMMUNE THYROIDITIS] Onset: 2 Chronic Unclassified (1 source) LOW BACK PAIN, UNSPECIFIED; Translations: [LOW BACK PAIN, UNSPECIFIED] Onset: 2 Past or Other Problems Problem Classification Problem Date Documented Da te Episodic/Chronic Other aftercare (1 source) 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 Performed By: #### V [id number] #### [address] #### CERULOP #### [facility] , Vit. B12/Folate Profileon 06 -19-2024 Cobalamin (Vitamin B12) [Mass/Vol] 284 pg/mL Normal 180-914 [facility] Comment on above: Performed By: #### V [id number] #### [address] #### CERULOP #### [facility] , Folate 17.8 ng/mL Normal >5.9 [facility] Comment on above: Result Comment: Destinee te reference range: >5.9 ng/ml The WHO technical consultation on folate and vitamin b12 deficiencies has determined that folate concentrations less than 4 ng/ml are considered deficient. PERFORMED BY: [place] [address] PATHOLOGIST RUBBER LINER DOMI SMITH M.D. Performed By: #### V [id number] #### [address] #### CERULOP #### [facility] , XR bone surveyon 08-22-2023 XR bone survey [facility] [place] [address] [place] [address] XRay Report Signed Patient: Misty Perez MR#: [id number] 43 : 1950 Acct:[id number] Age/Sex: 73 / F ADM Date: 08/22/23 Loc: Room: Type: [facility] Attending Dr: Tatiana Douglas MD Copies to: Tatiana Douglas MD Ordering Provider: Tatiana Douglas MD Date of Service: 08/22/23 XR/XR bone survey: D47.2 - Monoclonal gammopathy Plain film bone survey HISTORY: MGUS. COMPARISON: 12/15/2016 No lytic lesions. Multilevel cervical spine degenerative change. Thoracic hyperostosis and spondylosis. Mild lateral curvature. Sensitive lumbar degenerative change. Intact skull. No acute chest findings. Moderate constipation extensive left first carpometacarpal degeneration. Chronic changes of the distal right radius. Extensive right first carpometacarpal degeneration. XR/XR bone survey IMPRESSION: Degenerative change. There are no lytic lesions. Impression dictated by: Ramu Rivera M.D.08/22/2023 11:53 AM Dictation Location: [place] [address] Transcribed By: [facility] 08/22/23 1153 Dictated By: Ramu Rivera DO 08/22/23 1150 Signed By: 08/22/23 1153 Normal [facility] Lab Reportson 08-16-2023 Lab Reports [id number] Normal [facility] Outside [facility] Correspo ndenceon 08-16-2023 Outside [facility] Correspondence [id number] Normal [facility] Ambulatory Visit Summaryon 0 08-09-2023 Ambulatory Visit Summary MISTY PEREZ :1950 Visit Date:08/09/2023 Ambulatory Visit Instructions Your Diagnosis Hypoparathyroidism Sjogren's syndrome SK (seborrheic keratosis) MGUS (monoclonal gammopathy of unknown significance) Hypertension Anemia Breast cancer screening Nonsmoker Class 1 obesity due to excess calories in adult BMI 33.0-33.9,adult Your Care Team Attending Physician - Miguel Allen MD. Primary Care Physician - Miguel Allen MD This Is Your Medications List acetaminophen atorvastatin (atorvastatin 10 mg Tab) carboxymethylcellulose-sod ium hyaluronate cholecalciferol (Vitamin D3 2000 intl units oral Tab) fluocinonide topical (fluocinonide Top 0.05% Crm 15 gram) furosemide (furosemide 20 mg Tab) hydroxychloroquine (hydroxychloroquine 200 mg Tab) ibandronate (ibandronate 150 mg oral tablet) ketoconazole ketoconazole topical (ketoconazole Top 2% Shampoo) levothyroxine (levothyroxine 50 mcg (0.05 mg) Tab) lisinopril (lisinopril 10 mg Tab) metronidazole topical (metronidazole topical 1% cream) naproxen potassium chloride (Potassium Chloride (Olq-Grhi-Ujr 10) 10 mEq oral tablet, extended release) Procedures Performed Ablation, Biopsy of breast, Biopsy of thyroid, Bone graft, Bone marrow biopsy, Cancer of skin, Cataract, Colonoscopy, Internal fixation of fracture, Mohs surgery, Parathyroidectomy, Repair of tendon, BREANNA BSO - Total abdominal hysterectomy and bilateral salpingo-oophorectomy. Discharge Vitals Temperature (Oral) 36.4 ?C Heart Rate (Peripheral) 70 Respiratory Rate 18 Blood Pressure 122/80 Height 146 cm Height 57 in Weight 70.6 kg Weight 155.32 lb BMI 33.12 What to do next Scheduled Follow-Up Appointments 2023 1:00 PM EDT Where: [facility] [place] Normal [facility] Family Medicine Office/Clini c Noteon 08-09-2023 Family Medicine Office/Clinic Note HPI Staff Misty is a 73 year old female presenting for a yearly wellness Has AMW scheduled for 12/27/23 Health Maintenance: Colonoscopy: 2019 good for 10 years Dexa: ordered being done next week Mammo: due Pap: hysterectomy no longer gets them Last Labs: 07/24/22 questions/concerns: needs mammogram order ( [facility]) M spike is up to 1, had a bone marrow test done yesterday and PET scan scheduled for august 21. If it's multiple myeloma might have stem cell and if it's m-kat ( plasma issue) they will discuss treatment for that. Saw Teacher Emotionally Impaired txing her for little bumps back of head ( they call it dandruff) using prednisone for 6 mos and has a special shampoo she uses Needs refills of levothyroxine, lisinopril, potassium, atorvastatin, ibandronate, furosemide Her visit with Marianne from june wanted to see about giving her a break from the boniva Yearly labs ?? History of Present Illness - Here for follow up. - No issues today. - See staff HPI. Review of Systems PHQ Score Initial Depression Screen Score: 0 SCORE Physical Exam Vitals & Measurements T: 36.4 ?C(Oral) HR: 70(Peripheral) RR: 18 BP: 122/80 SpO2: 99% HT: 57 in HT: 146 cm WT: 70.6 kg WT: 155.32 lb BMI: 33.12 General: alert, no acute distress ENMT: oral mucosa moist, Cardiovascular: regular rate and rhythm, normal peripheral perfusion Respiratory: Lungs CTA, respirations non labored Extremities: no deformity, no trauma Neurological: oriented x 4, LOC appropriate for age, CN II-XII intact, motor strength equal & normal bilaterally, speech normal Abdomen: Soft, Nontender, Non-distended, + BS Assessment/Plan 1. Hypoparathyroidism (E20.9: Hypoparathyroidism, unspecified) - Will refer back to Endo as she has not followed up in a while. 2. Sjogren's syndrome (M35.00: Sjogren syndrome, unspecified) - Pt needs to follow up with Endo. 3. SK (seborrheic keratosis) (L82.1: Other seborrheic keratosis) - Seeing Derm. - No issues 4. MGUS (monoclonal gammopathy of unknown significance) (D47.2: Monoclonal gammopathy) - Seeing Tatiana Douglas - Doing well. - Tolerated the Bone Biopsy. - Pet scan scheduled 5. Hypertension (I10: Essential (primary) hypertension) - Well controlled. - No issues with meds 6. Anemia (D64.9: Anemia, unspecified) - Labs done yesterday. - Will ask for records 7. Breast cancer screening (Z12.39: Encounter for other screening for malignant neoplasm of breast) - Mammo already ordered for [facility] 8. Nonsmoker (Z78.9: Other specified health status) - Please continue to not smoke 9. Class 1 obesity due to excess calories in adult (E66.09: Other obesity due to excess calories) - Diet and exercise advised 10. BMI 33.0-33.9,adult (Z68.33: Body mass index [BMI] 33.0-33.9, adult) - BMI education given Orders: furosemide, See Instructions, TAKE ONE TABLET BY MOUTH DAILY, # 90 EA, Refills(s) 0, Pharmacy: [facility], 146, cm, 08/09/23 10:30:00 EDT, Height/Length Dosing, 70.6, kg, 08/09/23 10:30:00 EDT, Weight Dosing levothyroxine, 50 mcg = 1 tab(s), Oral, Daily, # 90 tab(s), Refills(s) 1, Pharmacy: [facility], 146, cm, 08/09/23 10:30:00 EDT, Height/Length Dosing, 70.6, kg, 08/09/23 10:30:00 EDT, Weight Dosing lisinopril, 10 mg = 1 tab(s), Oral, Daily, # 90 tab(s), Refills(s) 1, Pharmacy: [facility], 146, cm, 08/09/23 10:30:00 EDT, Height/Length Dosing, 70.6, kg, 08/09/23 10:30:00 EDT, Weight Dosing potassium chloride, 10 mEq = 1 tab(s), Oral, Daily, # 90 tab(s), Refills(s) 1, Pharmacy: [facility], 146, cm, 08/09/23 10:30:00 EDT, Height/Length Dosing, 70.6, kg, 08/09/23 10:30:00 EDT, Weight Dosing Follow-up No qualifying data available Problem List/Past Medical History Ongoing Anemia Breast cancer screening Fibromyalgia Hypertension Hypoparathyroidism Hypothyroidism MGUS (monoclonal gammopathy of unknown significance) Osteoarthritis of knee Osteoporosis Peripheral neuropathy Sjogren's syndrome SK (seborrheic keratosis) Vitamin D deficiency Historical No qualifying data Procedure/Surgical History Ablation, Biopsy of breast, Biopsy of thyroid, Bone graft, Bone marrow biopsy, Cancer of skin, Cataract, Colonoscopy, Internal fixation of fracture, Mohs surgery, Parathyroidectomy, Repair of tendon, BREANNA BSO - Total abdominal hysterectomy and bilateral salpingo-oophorectomy. Medications acetaminophen, 650 mg, PRN atorvastatin 10 mg Tab, 10 mg= 1 tab(s), Oral, Daily, 1 refills carboxymethylcellulose-sod ium hyaluronate, See Instructions fluocinonide Top 0.05% Crm 15 gram, See Instructions furosemide 20 mg Tab, See Instructions hydroxychloroquine 200 mg Tab, See Instructions ketoconazole, 2 %, Topical, Daily, PRN ketoconazole Top 2% Shampoo, 1 torrie, Topical, Every other day levothyroxine 50 mcg (0.05 mg) Tab, 50 mcg= 1 tab(s), Oral, Daily, 1 refills lisinopril 10 mg Tab, 10 mg= 1 tab(s), Oral, Daily, 1 refills metronidazole topical 1% cream, 1 a (more content not included)... Normal [facility] Comment on above: Result Comment: Elec tronically Signed By: Alejandro BRADFORD, Miguel Noriega.br\Date and Time Signed: 08/09/23 11:03 EDT Activated partial thrombopla stin time (aPTT) in platelet poor plasma by coagulation aOrdered By: Tatiana Douglas on 08-08-2023 aPTT Coag (PPP) [Time] 32.9 s 25.1-36.5 [facility] Comment on above: A hematocrit value g reater than 55% may lead to inaccurate results in coagulation testing. Patients having hematocrit values >55% require a special collection tube for coagulation studies. Please contact the laboratory at [phone] for redraw instructions. Automated basophil %Ordered By: Tatiana Douglas on 08-08-2023 Basophils/100 WBC (Bld) 0.8 % Normal . [facility] Comment on above: Performed By: #### C BC ####[place] [address] [address] Automated basophil countOrde red By: Tatiana Douglas on 08-08-2023 Basophils (Bld) [#/Vol] 0.0 10*3/uL Normal 0.0-0.2 [facility] Comment on above: Result Comment: PERF ORMED BY: [facility] [address] [facility] [address] PATHOLOGIST RUBBER LINER DOMI SMITH M.D. Performed By: #### C BC ####[address] Automated blood monocyte cou ntOrdered By: Tatiana Douglas on 08-08-2023 Monocytes (Bld) [#/Vol] 0.5 10*3/uL Normal 0.0-0.8 [facility] Comment on above: Performed By: #### C BC ####[address] Automated eosinophil %Ordere d By: Tatiana Douglas on 08-08-2023 Eosinophils/100 WBC (Bld) 2.2 % Normal . [facility] Comment on above: Performed By: #### C BC ####[address] Automated eosinophil countOr dered By: Tatiana Douglas on 06-05-2024 Eosinophils (Bld) [#/Vol] 0.1 10*3/uL Normal 0.0-0.45 [facility] Comment on above: Performed By: #### C BC ####[place] [address] [address] Automated monocyte %Ordered By: Tatiana Douglas on 08-08-2023 Monocytes/100 WBC (Bld) 9.4 % Normal . [facility] Comment on above: Performed By: #### C BC ####[address] Automated neutrophil %Ordere d By: Tatiana Douglas on 08-08-2023 Neutrophils/100 WBC (Bld) 62.6 % Normal . [facility] Comment on above: Performed By: #### C BC ####[address] guided bone marrow bx/asp iron 08-08-2023 CT guided bone marrow bx/aspir [facility] Main [place] [address] [place] [address] CT Scan Report Signed Patient: Misty Perez MR#: [id number] 44 : 1950 Acct:[id number] Age/Sex: 73 / F ADM Date: 08/08/23 Loc: CT Room: Type: [facility] Attending Dr: Tatiana Douglas MD Copies to: Tatiana Douglas MD Ordering Provider: Tatiana Douglas MD Date of Service: 08/08/23 CT/CT guided bone marrow bx/aspir: D47.2 - Monoclonal gammopathy CT guided bone marrow bx/aspir 08/08/2023 8:50 AM SIGNS AND SYMPTOMS: D47.2 - Monoclonal gammopathy INFORMED CONSENT: Reason for procedure was discussed with the patient. The procedure expectations risks benefits options and alternatives were discussed. All the questions were answered. The patient understood the results cannot be guaranteed. The procedure is indicated and risks were acceptable. Consent was obtained. PROCEDURE: CT imaging was used to visualize the left posterior iliac spine. The skin was marked over this location. The skin was prepped and draped in a sterile manner. 8 mL of lidocaine 2% without epinephrine were used for local anesthesia. The bone marrow space of the left posterior iliac spine was accessed using a 9 gauge arrow on control drill assisted biopsy system. 11 mL of bone marrow aspirate was obtained. A 2.5 cm 9 gauge core biopsy specimen was obtained. The needle was removed and hemostasis was gained using manual pressure. A bandage was placed at the puncture site. The patient tolerated the procedure well. No immediate complications were detected. CT/CT guided bone marrow bx/aspir IMPRESSION: Successful CT guided bone marrow aspiration and biopsy of the left posterior iliac spine. Impression dictated by: Tommy Mathur M.D.08/08/2023 3:03 PM Dictation Location: [place] [address] Transcribed By: [facility] 08/08/23 1503 Dictated By: Tommy Mathur II, MD 08/08/23 1501 Signed By: 08/08/23 1503 Normal [facility] Coagulation Profileon 2023 aPTT Coag (Bld) [Time] 32.9 s Normal 25.1-36.5 [facility] Comment on above: Order Comment: STAT FOR BX Result Comment: A he matocrit value greater than 55% may lead to inaccurate results in coagulation testing. Patients having hematocrit values >55% require a special collection tube for coagulation studies. Please contact the laboratory at [phone] for redraw instructions. PERFORMED BY: [place] [address] PATHOLOGIST RUBBER LINER DOMI SMITH M.D. Performed By: #### P P #### [address] Complete Blood Count Auto Di ffon 08-08-2023 Mean Corpuscular HGB Conc 33.6 g/dL Normal 32.0-35.0 [facility] Comment on above: Performed By: #### C BC ####[address] NRBC% 0.1 /100{WBC} Normal 0-0.5 [facility] Comment on above: Performed By: #### C BC ####[address] Erythrocyte distribution wid th [Ratio] by Automated countOrdered By: Tatiana Douglas on 08-08-2023 Erythrocyte distribution width (RBC) [Ratio] 13.6 % Normal 11.9-15.3 [facility] Comment on above: Performed By: #### C BC ####[address] Erythrocytes [#/volume] in B lood by Automated countOrdered By: Tatiana Douglas on 08-08-2023 RBC (Bld) [#/Vol] 4.38 10*6/uL Normal 3.60-5.00 [facility] Comment on above: Performed By: #### C BC ####[address] Hematocrit [Volume Fraction] of Blood by Automated countOrdered By: Tatiana Douglas on 08-08-2023 Hematocrit (Bld) [Volume fraction] 39.8 % Normal 34.0-46.4 [facility] Comment on above: Performed By: #### C BC ####[address] Hemoglobin [Mass/volume] in BloodOrdered By: Tatiana Douglas on 08-08-2023 Hemoglobin (Bld) [Mass/Vol] 13.4 g/dL Normal 11.8-15.4 [facility] Comment on above: Performed By: #### C BC ####[address] INR in Platelet poor plasma by Coagulation assayOrdered By: Tatiana Douglas on 08-08-2023 INR Coag (PPP) [Relative time] 0.9 {INR} Normal [facility] Comment on above: INR Therapeutic Rang e A) Pre- and Peroperative OAT started two weeks before surgery. NOT HIP SURGERY: 1.5 - 2.5 HIP SURGERY: 2 - 3B) Primary and secondary prevention of venous THROMBOSIS: 2 - 3C) Active venous thrombosis, pulmonary embolismand prevention of recurrent venous thrombosis: 2 - 3D) Prevention of arterial thromboembolismincluding patients with mechanical heart valves: 3 - 4.5 Order Comment: STAT FOR BX Result Comment: INR Therapeutic Range A) Pre- and Peroperative OAT started two weeks before surgery. NOT HIP SURGERY: 1.5 - 2.5 HIP SURGERY: 2 - 3 B) Primary and secondary prevention of venous THROMBOSIS: 2 - 3 C) Active venous thrombosis, pulmonary embolism and prevention of recurrent venous thrombosis: 2 - 3 D) Prevention of arterial thromboembolism including patients with mechanical heart valves: 3 - 4.5 Performed By: #### P P #### [facility] [address] 08-08-2023 L Specimen: Received: 08/08/23 [facility] [id number] Spec Type: Bone Marro Subm Dr: Tommy Mathur II, MD Tissues: A Bone Marrow Aspirate (Clot) (LT ILIAC CREST) B Bone Marrow Biopsy/Core (LT ILIAC CREST) Procedures: Peripheral Smr, Iron/2, HE/4, Gross/Micro L4/2, Bm Smear/2, AE1-AE3, CD138, CD20, CD3, CD34, CD56, Decalcification, Bone Marrow TP, Iron smear/2, GIEMSA STN/7 Age/ Patient Sex Location Account Attending Physician Misty Perez 73/F CT [id number] Tatiana Douglas MD SPEC NUM: [id number] RECD: 08/08/23 STATUS: [facility] NUM: [id number] DARON: 08/08/[address]: Tommy Mathur II, MD ENTERED: 08/08/23 [facility] DR: Tatiana Douglas MD SPEC TYPE: Bone [facility] DEPT: ORDERED: Peripheral Smr, Iron/2, HE/4, Gross/Micro L4/2, Bm Smear/2, AE1-AE3, CD138, CD20, CD3, CD34, CD56, Decalcification, Bone Marrow TP, Iron smear/2, GIEMSA STN/7 ORDERED: Peripheral Smr, Iron/2, HE/4, Gross/Micro L4/2, Bm Smear/2, AE1-AE3, CD138, CD20, CD3, CD34, CD56, USS/12, Decalcification, Bone Marrow TP, Iron smear/2, GIEMSA STN/7 Pathological Diagnosis Bone Marrow, Iliac Crest (core Biopsy, Clot And Aspirate Smears): Normocellular bone marrow (for age) with adequate trilineage hematopoiesis and mild plasmacytosis consistent with monoclonal gammopathy of undetermined significance (MGUS). Comment: Bone Marrow Is Normocellular For Age, Averaging 35% Cellularity. Normoblastic Maturation Is Noted In The Erythroid, Myeloid And Megakaryocytic Lineages. No Abnormal Lymphocytic Proliferations Are Identified, As Confirmed With Cd3 And Cd20 Immunostains. No Increase In Myeloid Blasts, As Confirmed With Cd34 Immunostain. No Epithelial Lesions Are Identified, As Confirmed With Pankeratin Immunostain. Plasma Cells Are mildly increased, representing 5-7% of total bone marrow cellularity (average 6%), as confirmed with CD138 immunostain. Plasma cells are proven monoclonal by flow cytometry. Overall, findings are consistent with monoclonal gammopathy of undetermined significance (MGUS). Clinical correlation and follow-up are suggested. CBC And Differential Specimen: [id number] Received: 08/08/23 Status: FERNANDO Moira Num: [id number] Spec Type: Bone Marro Subm Dr: Tommy Mathur II, MD Tissues: A Bone Marrow Aspirate (Clot) (LT ILIAC CREST) B Bone Marrow Biopsy/Core (LT ILIAC CREST) Procedures: Peripheral Smr, Iron/2, HE/4, Gross/Micro L4/2, Bm Smear/2, AE1-AE3, CD138, CD20, CD3, CD34, CD56, Decalcification, Bone Marrow TP, Iron smear/2, GIEMSA STN/7 Patient: Misty Perez [id number] (Continued) Specimen: [id number] Received: 08/08/23 (Continued) Pathological Diagnosis (Continued) Signed (signature on file) Shalonda Lewis MD 08/14/231913 Specimen: [id number] Received: 08/08/23 Status: FERNANDO Pizarro Num: [id number] Spec Type: Bone Marro Subm Dr: Tommy Mathur, MD ELOY Tissues: A Bone Marrow Aspirate (Clot) (LT ILIAC CREST) B Bone Marrow Biopsy/Core (LT ILIAC CREST) Procedures: Peripheral Smr, Iron/2, HE/4, Gross/Micro L4/2, Bm Smear/2, AE1-AE3, CD138, CD20, CD3, CD34, CD56, Decalcification, Bone Marrow TP, Iron smear/2, GIEMSA STN/7 Patient: Misty Perez [id number] (Continued) Specimen: [id number] Received: 08/08/23-115 (Continued) Pathological Diagnosis (Continued) Erythrocytes: Adequate. Leukocytes: Adequate. Platelets: Adequate. Aspirate Smear Erythropoiesis: Normoblastic. Myeloid Leukogenesis: Normoplastic. Megakaryocytogenesis: Normoplastic. Core Biopsy Erythropoiesis: Adequate. Myeloid Leukogenesis: Adequate. Megakaryocytogenesis: Adequate. Special Stains Iron: Adequate bone marrow iron stores. Clinical Information MGUS Gross Description A. Received in formalin, labeled with the patient's name, date of and clot is a 1.2 x 1.2 x 1.0 cm aggregate of dark red-brown blood clot. The specimen is trisected and entirely submitted in A1. B. Received in formalin, labeled with the patient's name, date of and bone are 2 hemorrhagic bone core fragments collectively measuring 1.5 cm in length by 0.3 cm in diameter. The specimen is entirely submitted following immuno calcification in B1. ------ (more content not included)... Normal [facility] Leukocytes [#/volume] correc annie for nucleated erythrocytes in Blood by Automated counOrdered By: Tatiana Douglas on 08-08-2023 WBC corrected for nucl RBC Auto (Bld) [#/Vol] 5.7 10*3/uL 3.8-11.6 [facility] Leukocytes [#/volume] in Blo od by Automated countOrdered By: Tatiana Douglas on 08-08-2023 WBC (Bld) [#/Vol] 5.7 10*3/uL Normal 3.8-11.6 [facility] Comment on above: Performed By: #### C BC ####[address] Lymphocytes [#/volume] in Bl ood by Automated countOrdered By: Tatiana Douglas on 08-08-2023 Lymphocytes (Bld) [#/Vol] 1.4 10*3/uL Normal 1.00-4.8 [facility] Comment on above: Performed By: #### C BC ####[address] Lymphocytes/100 leukocytes i n Blood by Automated countOrdered By: Tatiana Douglas on 08-08-2023 Lymphocytes/100 WBC (Bld) 25.0 % Normal . [facility] Comment on above: Performed By: #### C BC ####[address] MCH [Entitic mass] by Automa annie countOrdered By: Tatiana Douglas on 08-08-2023 MCH (RBC) [Entitic mass] 30.5 pg Normal 24.7-34.3 [facility] Comment on above: Performed By: #### C BC ####[address] MCHC Auto (RBC) [Mass/Vol]Or dered By: Tatiana Douglas on 08-08-2023 MCHC (RBC) [Mass/Vol] 33.6 g/dL 32.0-35.0 [facility] MCV [Entitic volume] by Auto mated countOrdered By: Tatiana Douglas on 08-08-2023 MCV (RBC) [Entitic vol] 90.9 fL Normal 80-[address] [facility] Comment on above: Performed By: #### C BC ####[address] Neutrophils [#/volume] in Bl ood by Automated countOrdered By: Tatiana Douglas on 08-08-2023 Neutrophils (Bld) [#/Vol] 3.6 10*3/uL Normal 1.8-7.7 [facility] Comment on above: Performed By: #### C BC ####[place] [address] [place] Nucleated erythrocytes [Pres ence] in Blood by Automated countOrdered By: Tatiana Douglas on 08-08-2023 Nucleated RBC Auto Ql (Bld) 0.1 /100{WBC} 0-0.5 [facility] Platelet mean volume [Entiti c volume] in Blood by Automated countOrdered By: Tatiana Douglas on 08-08-2023 Platelet mean volume (Bld) [Entitic vol] 9.4 fL Normal 6.3-10.7 [facility] Comment on above: Performed By: #### C BC ####[facility] [id number] Platelets [#/volume] in Bloo d by Automated countOrdered By: Tatiana Douglas on 08-08-2023 Platelets (Bld) [#/Vol] 183 10*3/uL Normal 150-450 [facility] Comment on above: Performed By: #### C BC ####[place] [address] [address] Prothrombin time (PT)Ordered By: Tatiana Douglas on 08-08-2023 PT Coag (PPP) [Time] 10.7 s Normal 9.0-12.9 [facility] Comment on above: A hematocrit value g reater than 55% may lead to inaccurate results in coagulation testing. Patients having hematocrit values >55% require a special collection tube for coagulation studies. Please contact the laboratory at [phone] for redraw instructions. Order Comment: STAT FOR BX Result Comment: A he matocrit value greater than 55% may lead to inaccurate results in coagulation testing. Patients having hematocrit values >55% require a special collection tube for coagulation studies. Please contact the laboratory at [phone] for redraw instructions. Performed By: #### P P #### [facility] [address] Consultation Noteon 07-25-19 Consultation Note [id number] Normal [facility] Alanine aminotransferase [En zymatic activity/volume] in Serum or PlasmaOrdered By: Tatiana Douglas on 07-18-2023 ALT [Catalytic activity/Vol] 15 U/L Normal 7-52 [facility] Comment on above: Performed By: #### K APPA, SPE, MG SERUM, UPE RAND #### [facility] , #### PROCRERAT, SCAN CBC, CMP #### [facility] [address] [place] [address] [place] Albumin [Mass/volume] in Ser um or PlasmaOrdered By: Tatiana Douglas on 07-18-2023 Albumin [Mass/Vol] 3.9 g/dL Normal 2.9-4.4 [facility] Comment on above: Performed By: #### K APPA, SPE, MG SERUM, UPE RAND ####[facility] ,#### PROCRERAT, SCAN CBC, CMP ####[facility] [id number] [place] [address] [place] Albumin [Mass/volume] in Ser um or Plasma by Bromocresol green (BCG) dye binding methoOrdered By: Tatiana Douglas on 07-18-2023 Albumin BCG dye [Mass/Vol] 4.4 g/dL 3.5-5.7 [facility] Albumin/Protein.total in 24 hour Urine by ElectrophoresisOrdered By: Tatiana Douglas on 07-18-2023 Albumin Elph (24H U) [Mass fraction] 23.6 % . [facility] Alkaline phosphatase [Enzyma tic activity/volume] in Serum or PlasmaOrdered By: Tatiana Douglas on 07-18-2023 ALP [Catalytic activity/Vol] 84 U/L Normal 34-104 [facility] Comment on above: Result Comment: PERF ORMED BY: [facility] [address] [place] [address] PATHOLOGIST RUBBER LINER DOMI SMITH M.D. Performed By: #### K APPA, SPE, MG SERUM, UPE RAND #### [facility] , #### PROCRERAT, SCAN CBC, CMP #### [facility] [address] [place] [address] [place] Aspartate aminotransferase [ Enzymatic activity/volume] in Serum or PlasmaOrdered By: Tatiana Misael on 07-18-2023 AST [Catalytic activity/Vol] 23 U/L Normal 13-39 [facility] Comment on above: Performed By: #### K APPA, SPE, MG SERUM, UPE RAND #### [facility] , #### PROCRERAT, SCAN CBC, CMP #### [facility] [address] [place] [address] Automated basophil %Ordered By: Tatiana Douglas on 07-18-2023 Basophils/100 WBC (Bld) 0.7 % Normal . [facility] Comment on above: Performed By: #### K APPA, SPE, MG SERUM, UPE RAND #### [facility] , #### PROCRERAT, SCAN CBC, CMP #### [address] Automated basophil countOrde red By: Tatiana Douglas on 07-18-2023 Basophils (Bld) [#/Vol] 0.0 10*3/uL Normal 0.0-0.2 [facility] Comment on above: Performed By: #### K APPA, SPE, MG SERUM, UPE RAND #### [facility] , #### PROCRERAT, SCAN CBC, CMP #### [facility] [address] [place] [address] Automated blood monocyte cou ntOrdered By: Tatiana Douglas on 07-18-2023 Monocytes (Bld) [#/Vol] 0.5 10*3/uL Normal 0.0-0.8 [facility] Comment on above: Performed By: #### K APPA, SPE, MG SERUM, UPE RAND #### [facility] , #### PROCRERAT, SCAN CBC, CMP #### [facility] [address] [place] [address] Automated eosinophil %Ordere d By: Tatiana Douglas on 07-18-2023 Eosinophils/100 WBC (Bld) 2.8 % Normal . [facility] Comment on above: Performed By: #### K APPA, SPE, MG SERUM, UPE RAND #### [facility] , #### PROCRERAT, SCAN CBC, CMP #### [facility] [address] [place] [address] Automated eosinophil countOr dered By: Tatiana Douglas on 07-18-2023 Eosinophils (Bld) [#/Vol] 0.2 10*3/uL Normal 0.0-0.45 [facility] Comment on above: Performed By: #### K APPA, SPE, MG SERUM, UPE RAND #### [facility] , #### PROCRERAT, SCAN CBC, CMP #### [facility] [address] [place] [address] Automated monocyte %Ordered By: Tatiana Misael on 07-18-2023 Monocytes/100 WBC (Bld) 8.2 % Normal . [facility] Comment on above: Performed By: #### K APPA, SPE, MG SERUM, UPE RAND #### [facility] , #### PROCRERAT, SCAN CBC, CMP #### [facility] [address] [place] [address] Automated neutrophil %Ordere d By: Tatiana Vicentese on 07-18-2023 Neutrophils/100 WBC (Bld) 69.5 % Normal . [facility] Comment on above: Performed By: #### K APPA, SPE, MG SERUM, UPE RAND #### [facility] , #### PROCRERAT, SCAN CBC, CMP #### [facility] [address] [place] [address] Bilirubin.total [Mass/volume ] in Serum or PlasmaOrdered By: Tatiana Vicentese on 07-18-2023 Bilirubin [Mass/Vol] 0.7 mg/dL Normal 0.3-1.0 [facility] Comment on above: Performed By: #### K APPA, SPE, MG SERUM, UPE RAND #### [facility] , #### PROCRERAT, SCAN CBC, CMP #### [facility] [address] [place] cells [Presence] in Blo od by Light microscopyOrdered By: Tatiana Misael on 07-18-2023 [place] cells LM Ql (Bld) [facility] Calcium [Mass/volume] in Ser um or PlasmaOrdered By: Tatiana Douglas on 07-18-2023 Calcium [Mass/Vol] 9.7 mg/dL Normal 8.6-10.3 [facility] Comment on above: Performed By: #### K APPA, SPE, MG SERUM, UPE RAND #### [facility] , #### PROCRERAT, SCAN CBC, CMP #### [facility] [address] [place] [address] Carbon dioxide, total [Moles /volume] in Serum or PlasmaOrdered By: Tatiana Douglas on 07-18-2023 CO2 [Moles/Vol] 30.4 mmol/L Normal 21.0-31.0 [facility] Comment on above: Performed By: #### K APPA, SPE, MG SERUM, UPE RAND #### [facility] , #### PROCRERAT, SCAN CBC, CMP #### [facility] [address] [place] [address] Chloride [Moles/volume] in S ousmane or PlasmaOrdered By: Tatiana Douglas on 07-18-2023 Chloride [Moles/Vol] 107 mmol/L Normal 98-107 [facility] Comment on above: Performed By: #### K APPA, SPE, MG SERUM, UPE RAND #### [facility] , #### PROCRERAT, SCAN CBC, CMP #### [facility] [address] [place] [address] Comprehensive Metabolic Pane kourtney 07-18-2023 Albumin [Mass/Vol] 4.4 g/dL Normal 3.5-5.7 [facility] Comment on above: Performed By: #### K APPA, SPE, MG SERUM, UPE RAND #### [facility] , #### PROCRERAT, SCAN CBC, CMP #### [facility] [address] [place] [address] [place] GFR/1.73 sq M.predicted MDRD (S/P/Bld) [Vol rate/Area] mL/min/{1.73_m2} Normal [facility] Comment on above: Performed By: #### K APPA, SPE, MG SERUM, UPE RAND #### [facility] , #### PROCRERAT, SCAN CBC, CMP #### [facility] [address] Creatinine [Mass/volume] in Serum or PlasmaOrdered By: Taitana Douglas on 07-18-2023 Creatinine [Mass/Vol] 0.85 mg/dL Normal 0.60-1.20 [facility] Comment on above: Performed By: #### K APPA, SPE, MG SERUM, UPE RAND #### [facility] , #### PROCRERAT, SCAN CBC, CMP #### [facility] [address] Creatinine [Mass/volume] in UrineOrdered By: Tatiana Douglas on 07-18-2023 Creatinine (U) [Mass/Vol] 85.0 mg/dL [facility] Comment on above: No reference range e stablished Erythrocyte distribution wid th [Ratio] by Automated countOrdered By: Tatiana Douglas on 07-18-2023 Erythrocyte distribution width (RBC) [Ratio] 13.4 % Normal 11.9-15.3 [facility] Comment on above: Performed By: #### K APPA, SPE, GM SERUM, UPE RAND #### [facility] , #### PROCRERAT, SCAN CBC, CMP #### [facility] [address] [place] [address] [place] Erythrocytes [#/volume] in B lood by Automated countOrdered By: Tatiana Douglas on 07-18-2023 RBC (Bld) [#/Vol] 4.52 10*6/uL Normal 3.60-5.00 [facility] Comment on above: Performed By: #### K APPA, SPE, MG SERUM, UPE RAND #### [facility] , #### PROCRERAT, SCAN CBC, CMP #### [facility] [address] Free K+L LT Chains, Qn, Son 07-18-2023 Free [place] Light Chains, S 27.8 mg/L High 3.3-19.4 [facility] Comment on above: Performed By: #### K APPA, SPE, MG SERUM, UPE RAND ####[facility] ,#### PROCRERAT, SCAN CBC, CMP ####[place] [address] [address] Free [place] Light Chains, S 80.5 mg/L High 5.7-26.3 [facility] Comment on above: Performed By: #### K APPA, SPE, MG SERUM, UPE RAND ####[facility] ,#### PROCRERAT, SCAN CBC, CMP ####[place] [address] [address] [place]/Lambda Ratio, S 0.35 Normal 0.26-1.65 [facility] Comment on above: Result Comment: Perf ormed at: - [facility] [address] [id number] Can Vacuum Tester: Kristian Castro PhD, Phone: [phone] PERFORMED BY: [facility] [address] [place] [address] PATHOLOGIST RUBBER LINER DOMI SMITH M.D. Performed By: #### K APPA, SPE, MG SERUM, UPE RAND ####[facility] ,#### PROCRERAT, SCAN CBC, CMP ####[address] Gamma globulin/Protein.total in 24 hour Urine by ElectrophoresisOrdered By: Tatiana Douglas on 07-18-2023 Gamma globulin Elph (24H U) [Mass fraction] 14.6 % . [facility] Glucose [Mass/volume] in Ser um or PlasmaOrdered By: Tatiana Misael on 07-18-2023 Glucose [Mass/Vol] 75 mg/dL Normal 70-100 [facility] Comment on above: ADA recommended refe rence rangeRandom Glucose Reference Range is dependent on time and content of last meal. Glucose of more than 200 mg/dL in a nonstressed, ambulatory subject supports the diagnosis of Diabetes Mellitus. Result Comment: [place] om Glucose Reference Range is dependent on time and content of last meal. Glucose of more than 200 mg/dL in a nonstressed, ambulatory subject supports the diagnosis of Diabetes Mellitus. ADA recommended reference range Performed By: #### K APPA, SPE, MG SERUM, UPE RAND #### [facility] , #### PROCRERAT, SCAN CBC, CMP #### [facility] [address] [place] [address] Hematocrit [Volume Fraction] of Blood by Automated countOrdered By: Tatiana Douglas on 07-18-2023 Hematocrit (Bld) [Volume fraction] 41.4 % Normal 34.0-46.4 [facility] Comment on above: Performed By: #### K APPA, SPE, MG SERUM, UPE RAND #### [facility] , #### PROCRERAT, SCAN CBC, CMP #### [facility] [address] [place] [address] Hemoglobin [Mass/volume] in BloodOrdered By: Tatiana Douglas on 07-18-2023 Hemoglobin (Bld) [Mass/Vol] 13.7 g/dL Normal 11.8-15.4 [facility] Comment on above: Performed By: #### K APPA, SPE, MG SERUM, UPE RAND #### [facility] , #### PROCRERAT, SCAN CBC, CMP #### [facility] [address] [place] [address] [place] IgA [Mass/volume] in Serum o r PlasmaOrdered By: Tatiana Vicentese on 07-18-2023 IgA [Mass/Vol] 78 mg/dL 64-422 [facility] IgG [Mass/volume] in Serum o r PlasmaOrdered By: Tatiana Douglas on 07-18-2023 IgG [Mass/Vol] 1223 mg/dL [phone] [facility] IgM [Mass/volume] in Serum o r PlasmaOrdered By: Tatiana Douglas on 07-18-2023 IgM [Mass/Vol] 39 mg/dL 26-217 [facility] Comment on above: Performed at: - [facility] [address] [id number] Director: Kristian Castro PhD, Phone: [phone] Immunofixation,Serumon 07-17 Immunofixation, Serum Abnormal . [facility] Comment on above: Result Comment: Immu nofixation shows IgG monoclonal protein with lambda light chain specificity. Performed By: #### K APPA, SPE, MG SERUM, UPE RAND #### [facility] , #### PROCRERAT, SCAN CBC, CMP #### [facility] [address] [place] [address] [place] Immunoglobulin A, Serum 78 mg/dL Normal 64-422 [facility] Comment on above: Performed By: #### K APPA, SPE, MG SERUM, UPE RAND #### [facility] , #### PROCRERAT, SCAN CBC, CMP #### [facility] [address] [place] [address] [place] Immunoglobulin G 1223 mg/dL Normal [phone] [facility] Comment on above: Performed By: #### K APPA, SPE, MG SERUM, UPE RAND #### [facility] , #### PROCRERAT, SCAN CBC, CMP #### [facility] [address] [place] [address] [place] Immunoglobulin M, Serum 39 mg/dL Normal 26-217 [facility] Comment on above: Result Comment: Perf ormed at: [employer] [facility] [place] [id number] [place], [place] [id number] Can Vacuum Tester: Kristian Castro PhD, Phone: [phone] Performed By: #### K APPA, SPE, MG SERUM, UPE RAND #### [facility] , #### PROCRERAT, SCAN CBC, CMP #### [facility] [address] Immunoglobulin light chains. kappa.free [Mass/volume] in SerumOrdered By: Tatiana Douglas on 07-18-2023 Immunoglobulin light chains.kappa.free (S) [Mass/Vol] 27.8 mg/L 3.3-19.4 [facility] Immunoglobulin light chains. kappa.free/Immunoglobulin light chains.lambda.free [MassOrdered By: Tatiana Douglas on 07-18-2023 Immunoglobulin light chains.kappa.free/Immuno globulin light chains.lambda.free (S) [Mass ratio] 0.35 0.26-1.65 [facility] Comment on above: Performed at: [address] [id number] Director: Kristian Castro PhD, Phone: [phone] Immunoglobulin light chains. lambda.free [Mass/volume] in Serum or PlasmaOrdered By: Tatiana Douglas on 07-18-2023 Immunoglobulin light chains.lambda.free [Mass/Vol] 80.5 mg/L 5.7-26.3 [facility] Laboratory - Chemistry and C hemistry - challengeOrdered By: Tatiana Douglas on 07-18-2023 Protein [Mass/Vol] 1.0 g/dL Not Observed [facility] Leukocytes [#/volume] correc annie for nucleated erythrocytes in Blood by Automated counOrdered By: Tatiana Douglas on 07-18-2023 WBC corrected for nucl RBC Auto (Bld) [#/Vol] 5.8 10*3/uL 3.8-11.6 [facility] Leukocytes [#/volume] in Blo od by Automated countOrdered By: Tatiana Douglas on 07-18-2023 WBC (Bld) [#/Vol] 5.8 10*3/uL Normal 3.8-11.6 [facility] Comment on above: Performed By: #### K APPA, SPE, MG SERUM, UPE RAND #### [facility] , #### PROCRERAT, SCAN CBC, CMP #### [address] Lymphocytes [#/volume] in Bl ood by Automated countOrdered By: Tatiana Douglas on 07-18-2023 Lymphocytes (Bld) [#/Vol] 1.1 10*3/uL Normal 1.00-4.8 [facility] Comment on above: Performed By: #### K APPA, SPE, MG SERUM, UPE RAND #### [facility] , #### PROCRERAT, SCAN CBC, CMP #### [address] Lymphocytes/100 leukocytes i n Blood by Automated countOrdered By: Tatiana Douglas on 07-18-2023 Lymphocytes/100 WBC (Bld) 18.8 % Normal . [facility] Comment on above: Performed By: #### K APPA, SPE, MG SERUM, UPE RAND #### [facility] , #### PROCRERAT, SCAN CBC, CMP #### [address] MCH [Entitic mass] by Automa annie countOrdered By: Tatiana Douglas on 07-18-2023 MCH (RBC) [Entitic mass] 30.3 pg Normal 24.7-34.3 [facility] Comment on above: Performed By: #### K APPA, SPE, MG SERUM, UPE RAND #### [facility] , #### PROCRERAT, SCAN CBC, CMP #### [facility] [address] [place] [address] MCHC Auto (RBC) [Mass/Vol]Or dered By: Tatiana Douglas on 07-18-2023 MCHC (RBC) [Mass/Vol] 33.0 g/dL 32.0-35.0 [facility] MCV [Entitic volume] by Auto mated countOrdered By: Tatiana Douglas on 07-18-2023 MCV (RBC) [Entitic vol] 91.8 fL Normal 80-[address] [facility] Comment on above: Performed By: #### K APPA, SPE, MG SERUM, UPE RAND #### [facility] , #### PROCRERAT, SCAN CBC, CMP #### [facility] [address] Neutrophils [#/volume] in Bl ood by Automated countOrdered By: Tatiana Douglas on 07-18-2023 Neutrophils (Bld) [#/Vol] 4.0 10*3/uL Normal 1.8-7.7 [facility] Comment on above: Performed By: #### K APPA, SPE, MG SERUM, UPE RAND #### [facility] , #### PROCRERAT, SCAN CBC, CMP #### [facility] [address] No Panel InformationOrdered By: Tatiana Douglas on 07-18-2023 Estimated GFR (CKD-EPI) > 60.0 mL/Min [facility] Creatinine Clearance (Chem N/A [facility] Protein Electrophoresis Note See comment . [facility] Comment on above: Protein electrophore sis scan will follow via computer,mail, or interventional radiology tech delivery.Performed at: [facility] [place] [id number] Director: Kristian Castro PhD, Phone: [phone] Serum Immunofixation See comment . [facility] Comment on above: Immunofixation shows IgG monoclonal protein with lambdalight chain specificity. Urine Random Prot Electrophor Note See comment . [facility] Comment on above: Protein electrophore sis scan will follow via computer,mail, or interventional radiology tech delivery.Performed at: [facility]en[facility]av[address] [place], [place] [id number] Director: Kristian Castro PhD, Phone: [phone] Nucleated erythrocytes [Pres ence] in Blood by Automated countOrdered By: Tatiana Douglas on 07-18-2023 Nucleated RBC Auto Ql (Bld) 0.0 /100{WBC} 0-0.5 [facility] Platelet adequacy [Presence] in Blood by Light microscopyOrdered By: Tatiana Douglas on 07-18-2023 Platelets LM Ql (Bld) Normal Normal [facility] Platelet mean volume [Entiti c volume] in Blood by Automated countOrdered By: Tatiana Douglas on 07-18-2023 Platelet mean volume (Bld) [Entitic vol] 9.4 fL Normal 6.3-10.7 [facility] Comment on above: Performed By: #### K APPA, SPE, MG SERUM, UPE RAND #### [facility] , #### PROCRERAT, SCAN CBC, CMP #### [facility] [address] Platelet morphology finding [Identifier] in BloodOrdered By: Tatiana Douglas on 07-18-2023 Platelet morphology finding Nom (Bld) N/A [facility] Platelets Large [Presence] i n Blood by Light microscopyOrdered By: Tatiana Douglas on 07-18-2023 Platelets Large LM Ql (Bld) Slight [facility] Platelets [#/volume] in Bloo d by Automated countOrdered By: Tatiana Douglas on 07-18-2023 Platelets (Bld) [#/Vol] 205 10*3/uL Normal 150-450 [facility] Comment on above: Performed By: #### K APPA, SPE, MG SERUM, UPE RAND #### [facility] , #### PROCRERAT, SCAN CBC, CMP #### [facility] [address] [place] [address] [place] Poikilocytosis [Presence] in Blood by Light microscopyOrdered By: Tatiana Douglas on 07-18-2023 Poikilocytosis LM Ql (Bld) Slight [facility] Polychromasia [Presence] in Blood by Light microscopyOrdered By: Tatiana Douglas on 07-18-2023 Polychromasia LM Ql (Bld) Slight [facility] Potassium [Moles/volume] in Serum or PlasmaOrdered By: Tatiana Douglas on 07-18-2023 Potassium [Moles/Vol] 4.2 mmol/L Normal 3.5-5.1 [facility] Comment on above: Performed By: #### K APPA, SPE, MG SERUM, UPE RAND #### [facility] , #### PROCRERAT, SCAN CBC, CMP #### [address] Protein Creat Ratio Ur Rando mon 07-18-2023 Creatinine, Urine (Random) 85.0 mg/dL Normal [facility] Comment on above: Result Comment: No r eference range established Performed By: #### K APPA, SPE, MG SERUM, UPE RAND #### [facility] , #### PROCRERAT, SCAN CBC, CMP #### [address] Protein (U) [Mass/Vol] 7 mg/dL Normal 0-9 [facility] Comment on above: Performed By: #### K APPA, SPE, MG SERUM, UPE RAND #### [facility] , #### PROCRERAT, SCAN CBC, CMP #### [address] Urine Protein/Creatinine Ratio 82 mg/g{Cre} Normal 0-200 [facility] Comment on above: Result Comment: PERF ORMED BY: [place] [address] PATHOLOGIST RUBBER LINER DOMI SMITH M.D. Performed By: #### K APPA, SPE, MG SERUM, UPE RAND #### [facility] , #### PROCRERAT, SCAN CBC, CMP #### [address] Protein Electro, Random Urin shantelle 07-18-2023 Albumin, Urine 23.6 % Normal . [facility] Comment on above: Performed By: #### K APPA, SPE, MG SERUM, UPE RAND ####[facility] ,#### PROCRERAT, SCAN CBC, CMP ####[address] Acpsn-6-Cdtzdjye, Urine 6.3 % Normal . [facility] Comment on above: Performed By: #### K APPA, SPE, MG SERUM, UPE RAND ####[facility] ,#### PROCRERAT, SCAN CBC, CMP ####[address] Bdjvx-9-Eiyykgmd, Urine 14.1 % Normal . [facility] Comment on above: Performed By: #### K APPA, SPE, MG SERUM, UPE RAND ####[facility] ,#### PROCRERAT, SCAN CBC, CMP ####[address] Beta Globulin, Urine 41.3 % Normal . [facility] Comment on above: Performed By: #### K APPA, SPE, MG SERUM, UPE RAND ####[facility] ,#### PROCRERAT, SCAN CBC, CMP ####[address] Gamma Globulin, Urine 14.6 % Normal . [facility] Comment on above: Performed By: #### K APPA, SPE, MG SERUM, UPE RAND ####[facility] ,#### PROCRERAT, SCAN CBC, CMP ####[place] [id number] [facility] M-David % Not Observed Normal Not Observed [facility] Comment on above: Performed By: #### K APPA, SPE, MG SERUM, UPE RAND ####[facility] ,#### PROCRERAT, SCAN CBC, CMP ####[address] Please Note: Normal . [facility] Comment on above: Result Comment: Prot ein electrophoresis scan will follow via computer, mail, or interventional radiology tech delivery. Performed at: - [address] [id number] Can Vacuum Tester: Kristian Castro PhD, Phone: [phone] PERFORMED BY: [facility] [address] [place] [address] PATHOLOGIST RUBBER LINER DOMI SMITH M.D. Performed By: #### K APPA, SPE, MG SERUM, UPE RAND ####[facility] ,#### PROCRERAT, SCAN CBC, CMP ####[address] Protein Electrophoresis, Ser umon 07-18-2023 Mfuow-2-Upjuxkpr 0.2 g/dL Normal 0.0-0.4 [facility] Comment on above: Performed By: #### K APPA, SPE, MG SERUM, UPE RAND ####[facility] ,#### PROCRERAT, SCAN CBC, CMP ####[address] Fajuj-6-Kuadwjml 0.7 g/dL Normal 0.4-1.0 [facility] Comment on above: Performed By: #### K APPA, SPE, MG SERUM, UPE RAND ####[facility] ,#### PROCRERAT, SCAN CBC, CMP ####[address] Beta Globulin 0.9 g/dL Normal 0.7-1.3 [facility] Comment on above: Performed By: #### K APPA, SPE, MG SERUM, UPE RAND ####[facility] ,#### PROCRERAT, SCAN CBC, CMP ####[address] Gamma Globulin 1.2 g/dL Normal 0.4-1.8 [facility] Comment on above: Performed By: #### K APPA, SPE, MG SERUM, UPE RAND ####[facility] ,#### PROCRERAT, SCAN CBC, CMP ####[place] [id number] [address] M-David 1.0 g/dL High Not Observed [facility] Comment on above: Performed By: #### K APPA, SPE, MG SERUM, UPE RAND ####[facility] ,#### PROCRERAT, SCAN CBC, CMP ####[address] SPE-Note Normal . [facility] Comment on above: Result Comment: Prot ein electrophoresis scan will follow via computer, mail, or interventional radiology tech delivery. Performed at: [address] [id number] Can Vacuum Tester: Kristian Castro PhD, Phone: [phone] Performed By: #### K APPA, SPE, MG SERUM, UPE RAND ####[facility] ,#### PROCRERAT, SCAN CBC, CMP ####[address] Protein [Mass/volume] in Ser um or PlasmaOrdered By: Tatiana Douglas on 07-18-2023 Protein [Mass/Vol] 7.1 g/dL Normal 6.4-8.9 [facility] Comment on above: Performed By: #### K APPA, SPE, MG SERUM, UPE RAND #### [facility] , #### PROCRERAT, SCAN CBC, CMP #### [facility] [address] Protein [Mass/Vol] 6.9 g/dL Normal 6.0-8.5 [facility] Comment on above: Performed By: #### K APPA, SPE, MG SERUM, UPE RAND ####[facility] ,#### PROCRERAT, SCAN CBC, CMP ####[facility] Protein [Mass/volume] in Uri neOrdered By: Tatiana Douglas on 07-18-2023 Protein (U) [Mass/Vol] 6.3 mg/dL Normal Not Estab. [facility] Comment on above: Performed By: #### K APPA, SPE, MG SERUM, UPE RAND ####[facility] ,#### PROCRERAT, SCAN CBC, CMP ####[place] [id number] [address] Protein.monoclonal/Protein.t otal in 24 hour Urine by ElectrophoresisOrdered By: Tatiaan Douglas on 07-18-2023 Protein.monoclonal Elph (24H U) [Mass fraction] Not observed % Not Observed [facility] RBC morphologyOrdered By: Mayito Douglas on 07-18-2023 RBC morphology finding Nom (Bld) N/A [facility] Red blood cell stomatocyte d etectionOrdered By: Tatiana Douglas on 07-18-2023 Stomatocytes LM Ql (Bld) Slight [facility] Scan and CBCon 07-18-2023 Crenated RBC Slight Normal [facility] Comment on above: Performed By: #### K APPA, SPE, MG SERUM, UPE RAND #### [facility] , #### PROCRERAT, SCAN CBC, CMP #### [facility] [address] Large Platelets Slight Normal [facility] Comment on above: Result Comment: PERF ORMED BY: [place] [address] PATHOLOGIST RUBBER LINER DOMI SMITH M.D. Performed By: #### K APPA, SPE, MG SERUM, UPE RAND #### [facility] , #### PROCRERAT, SCAN CBC, CMP #### [facility] [address] Mean Corpuscular HGB Conc 33.0 g/dL Normal 32.0-35.0 [facility] Comment on above: Performed By: #### K APPA, SPE, MG SERUM, UPE RAND #### [facility] , #### PROCRERAT, SCAN CBC, CMP #### [address] NRBC% 0.0 /100{WBC} Normal 0-0.5 [facility] Comment on above: Performed By: #### K APPA, SPE, MG SERUM, UPE RAND #### [facility] , #### PROCRERAT, SCAN CBC, CMP #### [address] Platelet Estimate Normal Normal Normal [facility] Comment on above: Performed By: #### K APPA, SPE, MG SERUM, UPE RAND #### [facility] , #### PROCRERAT, SCAN CBC, CMP #### [address] Poikilocytosis Slight Normal [facility] Comment on above: Performed By: #### K APPA, SPE, MG SERUM, UPE RAND #### [facility] , #### PROCRERAT, SCAN CBC, CMP #### [address] Polychromasia Slight Normal [facility] Comment on above: Performed By: #### K APPA, SPE, MG SERUM, UPE RAND #### [facility] , #### PROCRERAT, SCAN CBC, CMP #### [address] Stomatocytes Slight Normal [facility] Comment on above: Performed By: #### K APPA, SPE, MG SERUM, UPE RAND #### [facility] , #### PROCRERAT, SCAN CBC, CMP #### [facility] [address] Serum globulin measurement ( mass/volume)Ordered By: Tatiana Douglas on 07-18-2023 Globulin (S) [Mass/Vol] 3.0 g/dL Normal 2.2-3.[address] [facility] Comment on above: Performed By: #### K APPA, SPE, MG SERUM, UPE RAND ####[facility] ,#### PROCRERAT, SCAN CBC, CMP ####[facility] [place] [address] Serum globulin measurement b y calculation (mass/volume)Ordered By: Tatiana Douglas on 07-18-2023 Globulin (S) [Mass/Vol] 2.7 g/dL Normal F [facility] Comment on above: Performed By: #### K APPA, SPE, MG SERUM, UPE RAND #### [facility] , #### PROCRERAT, SCAN CBC, CMP #### [facility] [address] [place] [address] Serum or plasma albumin/glob ulin mass ratioOrdered By: Tatiana Douglas on 07-18-2023 Albumin/Globulin [Mass ratio] 1.6 {ratio} Normal [facility] Comment on above: Performed By: #### K APPA, SPE, MG SERUM, UPE RAND #### [facility] , #### PROCRERAT, SCAN CBC, CMP #### [facility] [address] [place] [address] Albumin/Globulin [Mass ratio] 1.3 {ratio} Normal 0.7-1.7 [facility] Comment on above: Performed By: #### K APPA, SPE, MG SERUM, UPE RAND ####[facility] ,#### PROCRERAT, SCAN CBC, CMP ####[address] Serum or plasma alpha 1 glob ulin measurement by electrophoresis (mass/volume)Ordered By: Tatiana Douglas on 07-18-2023 Alpha 1 globulin Elph [Mass/Vol] 0.2 g/dL 0.0-0.4 [facility] Serum or plasma alpha 2 glob ulin measurement by electrophoresis (mass/volume)Ordered By: Tatiana Misael on 07-18-2023 Alpha 2 globulin Elph [Mass/Vol] 0.7 g/dL 0.4-1.0 [facility] Serum or plasma anion gap de terminationOrdered By: Tatiana Douglas on 07-18-2023 Anion gap [Moles/Vol] 6.8 mmol/L Normal 6.0-15.0 [facility] Comment on above: Performed By: #### K APPA, SPE, MG SERUM, UPE RAND #### [facility] , #### PROCRERAT, SCAN CBC, CMP #### [facility] [address] [place] [address] Serum or plasma beta globuli n measurement by electrophoresis (mass/volume)Ordered By: Tatiana Misael on 07-18-2023 Beta globulin Elph [Mass/Vol] 0.9 g/dL 0.7-1.3 [facility] Serum or plasma gamma globul in measurement by electrophoresis (mass/volume)Ordered By: Tatiana Vicentese on 07-18-2023 Gamma globulin Elph [Mass/Vol] 1.2 g/dL 0.4-1.8 [facility] Sodium [Moles/volume] in Ser um or PlasmaOrdered By: Tatiana Douglas on 07-18-2023 Sodium [Moles/Vol] 140 mmol/L Normal 136-145 [facility] Comment on above: Performed By: #### K APPA, SPE, MG SERUM, UPE RAND #### [facility] , #### PROCRERAT, SCAN CBC, CMP #### [facility] [address] [place] [address] [place] Urea nitrogen [Mass/volume] in Serum or PlasmaOrdered By: Tatiana Douglas on 07-18-2023 Urea nitrogen [Mass/Vol] 32 mg/dL High 7-25 [facility] Comment on above: Performed By: #### K APPA, SPE, MG SERUM, UPE RAND #### [facility] , #### PROCRERAT, SCAN CBC, CMP #### [address] Urine alpha 1 globulin/total protein by electrophoresisOrdered By: Tatiana Douglas on 07-18-2023 Alpha 1 globulin Elph (U) [Mass fraction] 6.3 % . [facility] Urine alpha 2 globulin/total protein ratio by electrophoresisOrdered By: Tatiana Douglas on 07-18-2023 Alpha 2 globulin Elph (U) [Mass fraction] 14.1 % . [facility] Urine beta globulin measurem ent by electrophoresis (mass/volume)Ordered By: Tatiana Douglas on 07-18-2023 Beta globulin Elph (U) [Mass/Vol] 41.3 % . [facility] Urine protein/creatinine rat ioOrdered By: Tatiana Douglas on 07-18-2023 Protein/Creatinine (U) [Ratio] 82 mg/g{Cre} 0-200 [facility] Consultation Noteon 06-18-19 Consultation Note [id number]#1.00TIFF [facility] Consultation Noteon 03-16-19 Consultation Note [id number]#1.00TIFF [facility] Consultation Noteon 03-06-19 Consultation Note [id number]#1.00TIFF Normal [facility] Operative Reporton 3 Operative Report [id number]#1.00TIFF Normal [facility] Consultation Noteon 01-10-20 Consultation Note [id number]#1.00TIFF [facility] Consultation Noteon 12-28-19 Consultation Note [id number]#1.00TIFF Normal [facility] Family Medicine Office/Clini c Noteon 12-27-2022 [...] of clutter to prevent tripping and/or falling. [place] Advance Directives reviewed, see #3 below. Patient [...] Living Will and a durable power of civil attorney for your health care. These two [...] your a (more content not included)... Normal [facility] Comment on above: Result Comment: Elec tronically Signed By: Chel Parker\.br\Date and Time Signed: 12/27/22 12:49 EDT\.br\Electronically Co-Signed By: bAiodun Hodges\.br\Date and Time Co-Signed: 12/25/22 16:07 EDT Operative Reporton Operative Report [id number]#1.00TIFF Normal [facility] Screenson 12-26-2022 Screens [id number]#1.00TIFF Normal [facility] Ambulatory Visit Summaryon 1 Ambulatory Visit [...] 1% cream) naproxen potassium chloride (Potassium Chloride (Vjh-Zxqr-Lgo 10) 10 mEq oral tablet, extended release) [...] Follow-Up Appointments 2023 1:00 PM EDT Where: [facility] Patient Educationon 12-25- 23 Patient Education [...] night-lights. ? Place frequently used items in kpoq-ws-lgqar places. Lower the shelves around your home [...] the way. ? Do not use floor estonian or wax that makes floors slippery. If [...] include working with a physical therapist or inside sales trainer to improve your strength, balance, and endurance. Where to find more information ? Centers for Disease Control and Prevention, [place]: www.cdc.gov ? National [place] [employer] Aging: www.joao.nih.gov Contact a health care [...] health ca (more content not included)... [facility] Consultation Noteon 12-21-19 Consultation Note [id number] [facility] Consultation Noteon 12-20-19 Consultation Note [id number]#1.00TIFF [facility] Operative Reporton Operative Report [id number]:[address] [facility] Consultation Noteon 11-16-19 Consultation Note [id number]:[address] [facility] Consultation Noteon 10-03-19 Consultation Note [id number]:[address] [facility] Outside Mammographyon 2022 Outside Mammography [id number]#1.00CD:127 Normal [facility] C3 and C4 COMPLEMENTon 06-22 Complement C3, Serum 149 mg/dL Normal 82-167 [facility] Comment on above: Performed By: #### C ROMEO #### [facility] [address] [place] [address] Dr. Yaneth Walton Complement C4, Serum 31 mg/dL Normal 12-38 [facility] Comment on above: Performed By: #### C ROMEO #### [facility] [address] [place] [address] Dr. Yaneth Walton CBC AUTO DIFFon 06-21-2022 BASO # 0.0 103/ul Normal 0.0-0.1 [facility] Comment on above: Performed By: #### C BC #### [facility] [address] [place] [address] Dr. Yaneth Walton Basophils/100 WBC (Bld) 0.6 % Normal 0.2-2.0 [facility] Comment on above: Performed By: #### C BC #### [facility] [address] [place] [address] Dr. Yaneth Walton EO # 0.1 103/ul Normal 0.0-0.7 [facility] Comment on above: Performed By: #### C BC #### [facility] [address] [place] [address] Dr. Yaneth Walton Eosinophils/100 WBC (Bld) 2.8 % Normal 0.9-7.0 [facility] Comment on above: Performed By: #### C BC #### [facility] [address] [place] [address] Dr. Yaneth Walton Erythrocyte distribution width (RBC) [Ratio] 11.9 % Normal 11.0-15.0 [facility] Comment on above: Performed By: #### C BC #### [facility] [address] [place] [address] Dr. Yaneth Walton Hematocrit (Bld) [Volume fraction] 40.3 % Normal 36.0-48.0 [facility] Comment on above: Performed By: #### C BC #### [facility] [address] [place] [address] Dr. Yaneth Walton Hemoglobin (Bld) [Mass/Vol] 13.3 g/dL Normal 12.0-16.0 [facility] Comment on above: Performed By: #### C BC #### [facility] [address] [place] [address] Dr. Yaneth Walton IG # 0.01 10e3/ul Normal 0.00-0.03 [facility] Comment on above: Performed By: #### C BC #### [facility] [address] [place] [address] Dr. Yaneth Walton IG % 0.2 % Normal 0.0-0.5 [facility] Comment on above: Performed By: #### C BC #### [facility] [address] [place] [address] Dr. Yaneth Walton LYMPH # 1.0 103/ul Critically low 1.2-3.8 [facility] Comment on above: Performed By: #### C BC #### [facility] [address] [place] [address] Dr. Yaneth Walton Lymphocytes/100 WBC (Bld) 20.9 % Normal 20.5-60.0 [facility] Comment on above: Performed By: #### C BC #### [facility] [address] [place] [address] Dr. Yaneth Walton MANUAL DIFF REQ NO Normal [facility] Comment on above: Performed By: #### C BC #### [facility] [address] [place] [address] Dr. Yaneth Walton MCH (RBC) [Entitic mass] 32.0 pg Normal 26.7-34.0 [facility] Comment on above: Performed By: #### C BC #### [facility] [address] [place] [address] Dr. Yaneth Walton MCHC (RBC) [Mass/Vol] 33.0 g/dL Normal 29.9-35.2 [facility] Comment on above: Performed By: #### C BC #### [facility] [address] [place] [address] Dr. Yaneth Walton MCV (RBC) [Entitic vol] 97.1 fL Normal 81.0-99.0 [facility] Comment on above: Performed By: #### C BC #### [facility] [address] [place] [address] Dr. Yaneth Walton MONO # 0.4 103/ul Normal 0.3-0.8 [facility] Comment on above: Performed By: #### C BC #### [facility] [address] [place] [address] Dr. Yaneth Walton Monocytes/100 WBC (Bld) 8.4 % Normal 1.7-12.0 [facility] Comment on above: Performed By: #### C BC #### [facility] [address] [place] [address] Dr. Yaneth Walton NEUT # 3.1 103/ul Normal 1.4-6.5 [facility] Comment on above: Performed By: #### C BC #### [facility] [address] [place] [address] Dr. Yaneth Walton Neutrophils/100 WBC (Bld) 67.1 % Normal 43.0-75.0 [facility] Comment on above: Performed By: #### C BC #### [facility] [address] [place] [address] Dr. Yaneth Walton Platelet mean volume (Bld) [Entitic vol] 10.7 fL Normal 9.5-13.5 [facility] Comment on above: Performed By: #### C BC #### [facility] [address] [place] [address] Dr. Yaneth Walton PLT 213 103/ul Normal 150-450 [facility] Comment on above: Performed By: #### C BC #### [facility] [address] [place] [address] Dr. Yaneth Walton RBC 4.15 106/ul Critically low 4.20-5.40 [facility] Comment on above: Performed By: #### C BC #### [facility] [address] [place] [address] Dr. Yaneth Walton WBC 4.7 103/ul Normal 4.0-11.0 [facility] Comment on above: Performed By: #### C BC #### [facility] [address] [place] [address] Dr. Yaneth Walton CREATININEon 06-21-2022 Creatinine [Mass/Vol] 0.82 mg/dL Normal 0.55-1.02 [facility] Comment on above: Performed By: #### C ROMEO #### [facility] [address] [place] [address] Dr. Yaneth Walton EGFR-AF CITIZEN OF [place] >60 Normal >=60 [facility] Comment on above: Performed By: #### C ROMEO #### [facility] [address] [place] [address] Dr. Yaneth Walton EGFR-NON AF CITIZEN OF [place] >60 Normal >=60 [facility] Comment on above: Performed By: #### C ROMEO #### [facility] [address] [place] [address] Dr. Yaneth Walton SED RATE WESTERGRENon 2022 SED RATE 7 mm/hr Normal <=30 [facility] Comment on above: Performed By: #### C ROMEO #### [facility] [address] [place] [address] Dr. Yaneth Walton UA RANDOM W/MICROSCOPICon BACTERIA TRACE Abnormal NONE SEEN [facility] Comment on above: Performed By: #### C ROMEO #### [facility] [address] [place] [address] Dr. Yaneth Walton Bilirubin Ql (U) Negative Normal NEGATIVE [facility] Comment on above: Performed By: #### C ROMEO #### [facility] [address] [place] [address] Dr. Yaneth Walton CAST NONE SEEN Normal NONE SEEN [facility] Comment on above: Performed By: #### C ROMEO #### [facility] [address] [place] [address] Dr. Yaneth Wlaton Clarity (U) CLEAR Normal CLEAR [facility] Comment on above: Performed By: #### C ROMEO #### [facility] [address] [place] [address] Dr. Yaneth Walton Color (U) LT. YELLOW Normal YELLOW [facility] Comment on above: Performed By: #### C ROMEO #### [facility] [address] [place] [address] Dr. Yaneth Walton Crystals LM Nom (Urine sed) NONE SEEN Normal NONE SEEN [facility] Comment on above: Performed By: #### C ROMEO #### [facility] [address] [place] [address] Dr. Yaneth Walton Epithelial cells LM Ql (Urine sed) RARE Normal NONE SEEN /RARE [facility] Comment on above: Performed By: #### C ROMEO #### [facility] [address] [place] [address] Dr. Yaneth Walton Glucose Ql (U) Negative Normal NEGATIVE [facility] Comment on above: Performed By: #### C ROMEO #### [facility] [address] [place] [address] Dr. Yaneth Walton Hemoglobin Ql (U) Negative Normal NEGATIVE [facility] Comment on above: Performed By: #### C ROMEO #### [facility] [address] [place] [address] Dr. Yaneth Walton Ketones Ql (U) Negative Normal NEGATIVE [facility] Comment on above: Performed By: #### C ROMEO #### [facility] [address] [place] [address] Dr. Yaneth Walton LEUKOCYTES LARGE Abnormal NEGATIVE [facility] Comment on above: Performed By: #### C ROMEO #### [facility] [address] [place] [address] Dr. Yaneth Walton MUCOUS NONE SEEN Normal NONE SEEN [facility] Comment on above: Performed By: #### C ROMEO #### [facility] [address] [place] [address] Dr. Yaneth Walton Nitrite Ql (U) Negative Normal NEGATIVE [facility] Comment on above: Performed By: #### C ROMEO #### [facility] [address] [place] [address] Dr. Yaneth Walton pH (U) 6.0 [pH] Normal 5-9 [facility] Comment on above: Performed By: #### C ROMEO #### [facility] [address] [address] [address] Yaneth Walton RBC 0-2 Normal 0-2 [facility] Comment on above: Performed By: #### C ROMEO #### [facility] [address] [address] [address] Yaneth Walton SPEC GRAVITY <=1.005 Abnormal 1.005-<=1. 025 [facility] Comment on above: Performed By: #### C ROMEO #### [facility] [address] [address] [address] Yaneth Walton UA PROTEIN Negative Normal NEGATIVE/ TRACE [facility] Comment on above: Performed By: #### C ROMEO #### [facility] [address] [place] [address] Dr. Yaneth Walton Urobilinogen Qn (U) 0.2 {Ruth Ann'U}/dL Normal 0.2 - 1. 0 [facility] Comment on above: Performed By: #### C ROMEO #### [facility] [address] [place] [address] Dr. Yaneth Walton WBC 10-20 Abnormal NONE SEEN [facility] Comment on above: Performed By: #### C ROMEO #### [facility] [address] [place] [address] Dr. Yaneth Walton MRI LSPINE WO CONon [...] by: HEATHER BECKER Date: 2022-02-10 14:50 Normal [facility] XR KNEE SONY 4V or >on 2021 [...] by: HEATHER BECKER Date: 2022-02-03 17:51 Normal [facility] XR LSPINE MIN 4 VIEWSon 12-0 XR LSPINE MIN 4 VIEWS EXAMINATION: XR LS PINE MIN 4 VIEWS HISTORY: Low back pain COMPARISON: No relevant comparison available. FINDINGS: BONES: Normal alignment with no acute fracture or spondylolisthesis. Moderate to severe degenerative spondylosis and facet osteoarthropathy DISC SPACES: Moderate to severe multilevel disc space narrowing PARASPINOUS: Negative. No paraspinous abnormality is seen. OTHER: Negative. IMPRESSION: Moderate to severe degenerative changes Electronically authenticated by: HEATHER BECKER Date: 2022-02-03 17:54 Normal [facility] C3 and C4 COMPLEMENTon 12-22 Complement C3, Serum 155 mg/dL Normal 82-167 [facility] Comment on above: Performed By: #### C SUITE #### [facility] [address] [place] [address] Dr. Yaneth Walton Complement C4, Serum 35 mg/dL Normal 12-38 [facility] Comment on above: Performed By: #### C SUITE #### [facility] [address] [place] [address] Dr. Yaneth Walton CBC AUTO DIFFon 12-21-2021 BASO # 0.1 103/ul Normal 0.0-0.1 [facility] Comment on above: Performed By: #### C BC #### [facility] [address] [place] [address] Dr. Yaneth Walton Basophils/100 WBC (Bld) 0.9 % Normal 0.2-2.0 [facility] Comment on above: Performed By: #### C BC #### [facility] [address] [place] [address] Dr. Yaneth Walton EO # 0.1 103/ul Normal 0.0-0.7 [facility] Comment on above: Performed By: #### C BC #### [facility] [address] [place] [address] Dr. Yaneth Walton Eosinophils/100 WBC (Bld) 2.2 % Normal 0.9-7.0 [facility] Comment on above: Performed By: #### C BC #### [facility] [address] [place] [address] Dr. Yaneth Walton Erythrocyte distribution width (RBC) [Ratio] 13.0 % Normal 11.0-15.0 [facility] Comment on above: Performed By: #### C BC #### [facility] [address] [place] [address] Dr. Yaneth Walton Hematocrit (Bld) [Volume fraction] 42.0 % Normal 36.0-48.0 [facility] Comment on above: Performed By: #### C BC #### [facility] [address] [place] [address] Dr. Yaneth Walton Hemoglobin (Bld) [Mass/Vol] 13.4 g/dL Normal 12.0-16.0 [facility] Comment on above: Performed By: #### C BC #### [facility] [address] [place] [address] Dr. Yaneth Walton IG # 0.01 10e3/ul Normal 0.00-0.03 [facility] Comment on above: Performed By: #### C BC #### [facility] [address] [place] [address] Dr. Yaneth Walton IG % 0.2 % Normal 0.0-0.5 [facility] Comment on above: Performed By: #### C BC #### [facility] [address] [place] [address] Dr. Yaneth Walton LYMPH # 1.0 103/ul Critically low 1.2-3.8 [facility] Comment on above: Performed By: #### C BC #### [facility] [address] [place] [address] Dr. Yaneth Walton Lymphocytes/100 WBC (Bld) 18.0 % Critically low 20.5-60.0 [facility] Comment on above: Performed By: #### C BC #### [facility] [address] [place] [address] Dr. Yaneth Walton MANUAL DIFF REQ NO Normal [facility] Comment on above: Performed By: #### C BC #### [facility] [address] [place] [address] Dr. Yaneth Walton MCH (RBC) [Entitic mass] 30.5 pg Normal 26.7-34.0 [facility] Comment on above: Performed By: #### C BC #### [facility] [address] [place] [address] Dr. Yaneth Walton MCHC (RBC) [Mass/Vol] 31.9 g/dL Normal 29.9-35.2 [facility] Comment on above: Performed By: #### C BC #### [facility] [address] [address] [address] Yaneth Walton MCV (RBC) [Entitic vol] 95.7 fL Normal 81.0-99.0 [facility] Comment on above: Performed By: #### C BC #### [facility] [address] [address] [address] Yaneth Walton MONO # 0.5 103/ul Normal 0.3-0.8 [facility] Comment on above: Performed By: #### C BC #### [facility] [address] [place] [address] Dr. Yaneth Walton Monocytes/100 WBC (Bld) 8.7 % Normal 1.7-12.0 [facility] Comment on above: Performed By: #### C BC #### [facility] [address] [place] [address] Dr. Yaneth Walton NEUT # 3.8 103/ul Normal 1.4-6.5 [facility] Comment on above: Performed By: #### C BC #### [facility] [address] [place] [address] Dr. Yaneth Walton Neutrophils/100 WBC (Bld) 70.0 % Normal 43.0-75.0 [facility] Comment on above: Performed By: #### C BC #### [facility] [address] [place] [address] Dr. Yaneth Walton Platelet mean volume (Bld) [Entitic vol] 10.8 fL Normal 9.5-13.5 [facility] Comment on above: Performed By: #### C BC #### [facility] [address] [place] [address] Dr. Yaneth Walton PLT 213 103/ul Normal 150-450 [facility] Comment on above: Performed By: #### C BC #### [facility] [address] [place] [address] Dr. Yaneth Walton RBC 4.39 106/ul Normal 4.20-5.40 [facility] Comment on above: Performed By: #### C BC #### [facility] [address] [place] [address] Dr. Yaneth Walton WBC 5.4 103/ul Normal 4.0-11.0 [facility] Comment on above: Performed By: #### C BC #### [facility] [address] [place] [address] Dr. Yaneth Walton CREATININEon 12-21-2021 Creatinine [Mass/Vol] 0.87 mg/dL Normal 0.55-1.02 [facility] Comment on above: Performed By: #### C ROMEO #### [facility] [address] [place] [address] Dr. Yaneth Walton EGFR-AF CITIZ[place] >60 Normal >=60 [facility] Comment on above: Performed By: #### C ROMEO #### [facility] [address] [place] [address] Dr. Yaneth Walton EGFR-NON AF CITIZEN OF [place] >60 Normal >=60 [facility] Comment on above: Performed By: #### C ROMEO #### [facility] [address] [place] [address] Dr. Yaneth Walton [facility] SED RATE 10 mm/hr Normal <=30 [facility] Comment on above: Performed By: #### S EDR #### [facility] [address] [place] [address] Dr. Yaneth Walton UA RANDOM W/MICROSCOPICon BACTERIA NONE SEEN Normal NONE SEEN [facility] Comment on above: Performed By: #### C ROMEO #### [facility] [address] [place] [address] Dr. Yaneth Walton Bilirubin Ql (U) Negative Normal NEGATIVE [facility] Comment on above: Performed By: #### C ROMEO #### [facility] [address] [place] [address] Dr. Yaneth Walton CAST NONE SEEN Normal NONE SEEN [facility] Comment on above: Performed By: #### C ROMEO #### [facility] [address] [place] [address] Dr. Yaneth Walton Clarity (U) CLEAR Normal CLEAR [facility] Comment on above: Performed By: #### C ROMEO #### [facility] [address] [place] [address] Dr. Yaneth Walton Color (U) LT. YELLOW Normal YELLOW [facility] Comment on above: Performed By: #### C ROMEO #### [facility] [address] [place] [address] Dr. Yaneth Walton Crystals LM Nom (Urine sed) NONE SEEN Normal NONE SEEN [facility] Comment on above: Performed By: #### C ROMEO #### [facility] [address] [place] [address] Dr. Yaneth Walton Epithelial cells LM Ql (Urine sed) FEW Abnormal NONE SEEN /RARE [facility] Comment on above: Performed By: #### C ROMEO #### [facility] [address] [place] [address] Dr. Yaneth Walton Glucose Ql (U) Negative Normal NEGATIVE [facility] Comment on above: Performed By: #### C ROMEO #### [facility] [address] [place] [address] Dr. Yaneth Walton Hemoglobin Ql (U) Negative Normal NEGATIVE [facility] Comment on above: Performed By: #### C ROMEO #### [facility] [address] [place] [address] Dr. Yaneth Walton Ketones Ql (U) Negative Normal NEGATIVE [facility] Comment on above: Performed By: #### C ROMEO #### [facility] [address] [place] [address] Dr. Yaneth Walton LEUKOCYTES TRACE Abnormal NEGATIVE [facility] Comment on above: Performed By: #### C ROMEO #### [facility] [address] [place] [address] Dr. Yaneth Walton MUCOUS NONE SEEN Normal NONE SEEN [facility] Comment on above: Performed By: #### C ROMEO #### [facility] [address] [place] [address] Dr. Yaneth Walton Nitrite Ql (U) Negative Normal NEGATIVE [facility] Comment on above: Performed By: #### C ROMEO #### [facility] [address] [place] [address] Dr. Yaneth Walton pH (U) 6.0 [pH] Normal 5-9 [facility] Comment on above: Performed By: #### C ROMEO #### [facility] [address] [place] [address] Dr. Yaneth Walton RBC NONE SEEN Abnormal 0-2 [facility] Comment on above: Performed By: #### C ROMEO #### [facility] [address] [place] [address] Dr. Yaneth Walton SPEC GRAVITY 1.010 Normal 1.005-<=1. 025 [facility] Comment on above: Performed By: #### C ROMEO #### [facility] [address] [place] [address] Dr. Yaneth Walton UA PROTEIN Negative Normal NEGATIVE/ TRACE [facility] Comment on above: Performed By: #### C ROMEO #### [facility] [address] [place] [address] Dr. Yaneth Walton Urobilinogen Qn (U) 0.2 {Ruth Ann'U}/dL Normal 0.2 - 1. 0 [facility] Comment on above: Performed By: #### C ROMEO #### [facility] [address] [place] [address] Dr. Yaneth Walton WBC 0-2 Abnormal NONE SEEN [facility] Comment on above: Performed By: #### C ROMEO #### [facility] [address] [place] [address] Dr. Yaneth Walton PTH INTACTon 08-20-2021 PTH, Intact 44 pg/mL Normal 15-65 [facility] Comment on above: Performed By: #### B ETA2M #### [facility] [address] [place] [address] Dr. Yaneth Walton FREE T3on 08-19-2021 FREE T3 2.44 pg/mlL Normal 2.18-3.98 [facility] Comment on above: Performed By: #### B ETA2M #### [facility] [address] [address] [address] Yaneth Walton FREE T4on 08-19-2021 Free T4 [Mass/Vol] 1.11 ng/dL Normal 0.76-1.46 [facility] Comment on above: Performed By: #### B ETA2M #### [facility] [address] [place] [address] Dr. Yaneth Walton LIPID PROFILEon 08-19-2021 CHOL-HDL RATIO NORM SEE BELOW Normal [facility] Comment on above: Result Comment: 3.3 - 4.4 LOW RISK 4.4 - 7.1 AVERAGE RISK 7.1 - 11.0 MODERATE RISK >11.0 HIGH RISK Performed By: #### C ROMEO #### [facility] [address] [place] [address] Dr. Yaneth Walton Cholesterol [Mass/Vol] 180 mg/dL Normal <=200 Th [facility] Comment on above: Performed By: #### C ROMEO #### [facility] [address] [place] [address] Dr. Yaneth Walton Cholesterol in HDL [Mass/Vol] 76 mg/dL Critically high 40-60 [facility] Comment on above: Performed By: #### C ROMEO #### [facility] [address] [place] [address] Dr. Yaneth Walton Cholesterol in LDL [Mass/Vol] 92.6 mg/dL Normal [facility] Comment on above: Performed By: #### C ROMEO #### [facility] [address] [place] [address] Dr. Yaneth Walton Cholesterol.total/Choles terol in HDL [Mass ratio] 2.4 {ratio} Normal [facility] Comment on above: Performed By: #### C ROMEO #### [facility] [address] [place] [address] Dr. Yaneth Walton HDL NORMAL > or = 60 mg/dl - LO W CARDIOVASCULAR RISK <40 mg/dl - HIGH CARDIOVASCULAR RISK Normal [facility] Comment on above: Performed By: #### C ROMEO #### [facility] [address] [place], [place] [address] Dr. Yaneth Walton LDL CALC NORMAL SEE BELOW Normal [facility] Comment on above: Result Comment: <100 mg/dl OPTIMAL 100 - 129 mg/dl NEAR OR ABOVE OPTIMAL 130 - 159 mg/dl BORDERLINE HIGH 160 - 189 mg/dl HIGH >190 mg/dl VERY HIGH Performed By: #### C ROMEO #### [facility] [address] [place], [place] [address] Dr. Yaneht Walton Triglyceride [Mass/Vol] 57 mg/dL Normal <=150 T [facility] Comment on above: Performed By: #### C ROMEO #### [facility] [address] [place], [place] [address] Dr. Yaneth Walton VLDL CALC 11.4 mg/dL Normal [facility] Comment on above: Performed By: #### C ROMEO #### [facility] [address] [place], [place] [address] Dr. Yaneth Walton MG MAMM SCREEN 3D SONY CADon 08-19-2021 MG MAMM SCREEN 3D SONY CAD Patient: MISTY PEREZ Exam Date: 08/19/2021 : 1950 Gender:F Ordering : DR CAROL KENNEDY . Admission #: [id number] Family : Order #: [id number] CLICK HERE TO VIEW EXAM RADIOLOGY REPORT [...] colon cancer at age 71. LOCATION: [facility] BREAST COMPOSITION: Heterogeneously dense,which may obscure small [...] Acosta M.D. on 08/19/2021 at 12:07 Normal [facility] TSHon 08-19-2021 TSH 0.181 uIU/mL Critically low 0.358-3.74 0 [facility] Comment on above: Performed By: #### B ETA2M #### [facility] [address] [place] [address] [address] Yaneth Walton VITAMIN D 25 OHon 08-19-2021 VIT D 25-OH 51.8 ng/mL Normal [facility] Comment on above: Performed By: #### B ETA2M #### [facility] [address] [place] [address] [address] Yaneth Walton VIT D RANGES SEE BELOW Normal [facility] Comment on above: Result Comment: <20 ng/mL Vit D deficient 20 - <30 ng/mL Vit D insufficient 30 - 100 ng/mL Vit D sufficient >100 ng/mL Potential Toxicity Performed By: #### B ETA2M #### [facility] [address] [address] [address] Yaneth Walton [facility] Surgical Pathology Depar tmenton 08-04-2021 [facility] Surgical Pathology Department Name MISTY PEREZ Pathologist: TONYA CARRERA DMD Date of Procedure: 08/04/2021 Date Received: 08/08/2021 Date Reported 08/12/2021 Submitting Physician: LIZETH LAYTON DDS Location: [facility] Other External # FINAL DIAGNOSIS A. ATTACHED GINGIVA OF TEETH #[id number], EXCISION: -- MILD EPITHELIAL DYSPLASIA (MULTIPLE LEVELS EXAMINED) ICD-10/CPT: K13.21/65866 Electronically Signed Out By TONYA CARRERA DMD/ALFONSO By the signature on this report, the individual or group listed as making the Final Interpretation/Diagnosis certifies that they have reviewed this case. Diagnostic interpretation performed at [facility] [address] [place] [id number] Microscopic Description: The sections show a fragment [...] and entirely submitted in one cassette. [facility]/08/08/2021 [facility] Department of Pathology [address] [place] [address] Normal [facility] Comment on above: Performed By: #### U [facility] #### [facility] Surgical Pathology Department [address] [place] [address] IMMUNOFIXATION (MG), SERUMo n 07-11-2021 IMMUNOFIXATION RESULT Comment Abnormal [facility] Comment on above: Result Comment: Immu nofixation shows IgG monoclonal protein with lambda light chain specificity. Performed By: #### C ROMEO #### [facility] [address] [place] [address] [address] Yaneth Walton Immunoglobulin A, Qn, Serum 113 mg/dL Normal 87-352 [facility] Comment on above: Performed By: #### C ROMEO #### [facility] [address] [place], [place] [address] Dr. Yaneth Walton Immunoglobulin G, Qn, Serum 1031 mg/dL Normal 586-1602 [facility] Comment on above: Performed By: #### C ROMEO #### [facility] [address] [place] [address] [address] [address] Yaneth Walton Immunoglobulin M, Qn, Serum 42 mg/dL Normal 26-217 [facility] Comment on above: Performed By: #### C ROMEO #### [facility] [address] [place] [address] Dr. Yaneth Walton BETA-2 MICROGLOBINon 022 Beta-2 Microglobulin, Serum 2.2 mg/L Normal 0.6-2.4 [facility] Comment on above: Result Comment: Siem Immulite 2000 Immunochemiluminometric assay (ICMA) . Values obtained with different assay methods or kits cannot be used interchangeably. Results cannot be interpreted as absolute evidence of the presence or absence of malignant disease. Performed By: #### B ETA2M #### [facility] [address] [place] [address] Dr. Yaneth Walton FREE LIGHT CHAINS PLUS RATIO on 07-09-2021 Free [place] Lt Chains,S 34.7 mg/L Critically high 3.3-19.4 [facility] Comment on above: Performed By: #### F REELIT #### [facility] [address] [place] [address] Dr. Yaneth Walton Free Lambda Lt Chains,S 50.1 mg/L Critically high 5.7-26. 3 [facility] Comment on above: Performed By: #### F REELIT #### [facility] [address] [place] [address] Dr. Yaneth Walton [place]/Lambda Ratio, S 0.69 Normal 0.26-1.65 [facility] Comment on above: Performed By: #### F REELIT #### [facility] [address] [place] [address] Dr. Yaneth Walton IMMUNOGLOBULINS IGA/IGM/IGG QUANTITATIVEon 07-08-2021 Immunoglobulin A, Qn, Serum 111 mg/dL Normal 87-352 [facility] Comment on above: Performed By: #### I MMUNGL #### [facility] [address] [place] [address] Dr. Yaneth Walton Immunoglobulin G, Qn, Serum 1037 mg/dL Normal 586-1602 [facility] Comment on above: Performed By: #### I MMUNGL #### [facility] [address] [place] [address] Dr. Yaneth Walton Immunoglobulin M, Qn, Serum 44 mg/dL Normal 26-217 [facility] Comment on above: Performed By: #### I MMUNGL #### [facility] [address] [place] [address] Dr. Yaneth Walton CBC AUTO DIFFon 07-07-2021 BASO # 0.0 103/ul Normal 0.0-0.1 [facility] Comment on above: Performed By: #### C BC #### [facility] [address] [place] [address] Dr. Yaneth Walton Basophils/100 WBC (Bld) 0.7 % Normal 0.2-2.0 [facility] Comment on above: Performed By: #### C BC #### [facility] [address] [place] [address] Dr. Yaneth Walton EO # 0.2 103/ul Normal 0.0-0.7 [facility] Comment on above: Performed By: #### C BC #### [facility] [address] [place] [address] Dr. Yaneth Walton Eosinophils/100 WBC (Bld) 2.9 % Normal 0.9-7.0 [facility] Comment on above: Performed By: #### C BC #### [facility] [address] [place] [address] Dr. Yaneth Walton Erythrocyte distribution width (RBC) [Ratio] 12.9 % Normal 11.0-15.0 [facility] Comment on above: Performed By: #### C BC #### [facility] [address] [place] [address] Dr. Yaneth Walton Hematocrit (Bld) [Volume fraction] 43.1 % Normal 36.0-48.0 [facility] Comment on above: Performed By: #### C BC #### [facility] [address] [place] [address] Dr. Yaneth Walton Hemoglobin (Bld) [Mass/Vol] 13.8 g/dL Normal 12.0-16.0 [facility] Comment on above: Performed By: #### C BC #### [facility] [address] [place] [address] Dr. Yaneth Walton IG # 0.02 10e3/ul Normal 0.00-0.03 [facility] Comment on above: Performed By: #### C BC #### [facility] [address] [place] [address] Dr. Yaneth Walton IG % 0.4 % Normal 0.0-0.5 [facility] Comment on above: Performed By: #### C BC #### [facility] [address] [place] [address] Dr. Yaneth Walton LYMPH # 1.3 103/ul Normal 1.2-3.8 [facility] Comment on above: Performed By: #### C BC #### [facility] [address] [place] [address] Dr. Yaneth Walton Lymphocytes/100 WBC (Bld) 22.9 % Normal 20.5-60.0 [facility] Comment on above: Performed By: #### C BC #### [facility] [address] [place] [address] Dr. Yaneth Walton MANUAL DIFF REQ NO Normal [facility] Comment on above: Performed By: #### C BC #### [facility] [address] [place] [address] Dr. Yaneth Walton MCH (RBC) [Entitic mass] 30.3 pg Normal 26.7-34.0 [facility] Comment on above: Performed By: #### C BC #### [facility] [address] [place] [address] Dr. Yaneth Walton MCHC (RBC) [Mass/Vol] 32.0 g/dL Normal 29.9-35.2 [facility] Comment on above: Performed By: #### C BC #### [facility] [address] [place] [address] Dr. Yaneth Walton MCV (RBC) [Entitic vol] 94.5 fL Normal 81.0-99.0 [facility] Comment on above: Performed By: #### C BC #### [facility] [address] [place] [address] Dr. Yaneth Walton MONO # 0.5 103/ul Normal 0.3-0.8 [facility] Comment on above: Performed By: #### C BC #### [facility] [address] [place] [address] Dr. Yaneth Walton Monocytes/100 WBC (Bld) 8.7 % Normal 1.7-12.0 [facility] Comment on above: Performed By: #### C BC #### [facility] [address] [place] [address] Dr. Yaneth Walton NEUT # 3.5 103/ul Normal 1.4-6.5 [facility] Comment on above: Performed By: #### C BC #### [facility] [address] [place] [address] Dr. Yaneth Walton Neutrophils/100 WBC (Bld) 64.4 % Normal 43.0-75.0 [facility] Comment on above: Performed By: #### C BC #### [facility] [address] [place] [address] Dr. Yaneth Walton Platelet mean volume (Bld) [Entitic vol] 11.0 fL Normal 9.5-13.5 [facility] Comment on above: Performed By: #### C BC #### [facility] [address] [place] [address] Dr. Yaneth Walton PLT 206 103/ul Normal 150-450 [facility] Comment on above: Performed By: #### C BC #### [facility] [address] [place] [address] Dr. Yaneth Walton RBC 4.56 106/ul Normal 4.20-5.40 [facility] Comment on above: Performed By: #### C BC #### [facility] [address] [place] [address] Dr. Yaneth Walton WBC 5.5 103/ul Normal 4.0-11.0 [facility] Comment on above: Performed By: #### C BC #### [facility] [address] [place] [address] Dr. Yaneth Walton PROF 14(COMP METB)on 022 Albumin [Mass/Vol] 3.7 g/dL Normal 3.4-5.0 [facility] Comment on above: Performed By: #### B ETA2M #### [facility] [address] [place] [address] Dr. Yaneth Walton Albumin/Globulin [Mass ratio] 1.0 {ratio} Normal [facility] Comment on above: Performed By: #### B ETA2M #### [facility] [address] [place] [address] [address] Yaneth Walton ALP [Catalytic activity/Vol] 103 U/L Normal 46-116 [facility] Comment on above: Performed By: #### B ETA2M #### [facility] [address] [place] [address] Dr. Yaneth Walton ALT [Catalytic activity/Vol] 28 U/L Normal 14-59 [facility] Comment on above: Performed By: #### B ETA2M #### [facility] [address] [place] [address] Dr. Yaneth Waltno Anion gap [Moles/Vol] 12.0 mmol/L Normal [facility] Comment on above: Performed By: #### B ETA2M #### [facility] [address] [place] [address] Dr. Yaneth Walton AST [Catalytic activity/Vol] 26 U/L Normal 15-37 [facility] Comment on above: Performed By: #### B ETA2M #### [facility] [address] [place] [address] Dr. Yaneth Walton Bilirubin [Mass/Vol] 0.7 mg/dL Normal 0.2-1.0 [facility] Comment on above: Performed By: #### B ETA2M #### [facility] [address] [place] [address] Dr. Yaneth Walton Calcium [Mass/Vol] 8.6 mg/dL Normal 8.5-10.1 [facility] Comment on above: Performed By: #### B ETA2M #### [facility] [address] [place] [address] Dr. Yaneth Walton Chloride [Moles/Vol] 103 mmol/L Normal 98-107 [facility] Comment on above: Performed By: #### B ETA2M #### [facility] [address] [address] [address] Yaneth Walton CO2 [Moles/Vol] 28.7 mmol/L Normal 21.0-32.0 [facility] Comment on above: Performed By: #### B ETA2M #### [facility] [address] [address] [address] Yaneth Walton Creatinine [Mass/Vol] 0.84 mg/dL Normal 0.55-1.02 [facility] Comment on above: Performed By: #### B ETA2M #### [facility] [address] [place] [address] Dr. Yaneth Walton EGFR-AF CITIZEN [place] >60 Normal >=60 [facility] Comment on above: Performed By: #### B ETA2M #### [facility] [address] [place] [address] Dr. Yaneth Walton EGFR-NON AF CITIZEN OF [place] >60 Normal >=60 [facility] Comment on above: Performed By: #### B ETA2M #### [facility] [address] [place] [address] [address] Yaneth Walton Globulin (S) [Mass/Vol] 3.7 g/dL Normal T [facility] Comment on above: Performed By: #### B ETA2M #### [facility] [address] [place] [address] Dr. Yaneth Walton Glucose [Mass/Vol] 90 mg/dL Normal 74-106 [facility] Comment on above: Performed By: #### B ETA2M #### [facility] [address] [place] [address] Dr. Yaneth Walton Potassium [Moles/Vol] 3.7 mmol/L Normal 3.5-5.1 [facility] Comment on above: Performed By: #### B ETA2M #### [facility] [address] [place] [address] Dr. Yaneth Walton Protein [Mass/Vol] 7.4 g/dL Normal 6.1-8.2 [facility] Comment on above: Performed By: #### B ETA2M #### [facility] [address] [place] [address] [address] Yaneth Walton Sodium [Moles/Vol] 140 mmol/L Normal 136-145 [facility] Comment on above: Performed By: #### B ETA2M #### [facility] [address] [address] [address] Yaneth Walton Urea nitrogen [Mass/Vol] 22.0 mg/dL Critically high 7.0-18 .0 [facility] Comment on above: Performed By: #### B ETA2M #### [facility] [address] [place] [address] [address] Yaneth Walton Urea nitrogen/Creatinine [Mass ratio] 26.2 mg/mg Normal [facility] Comment on above: Performed By: #### B ETA2M #### [facility] [address] [place] [address] [address] Yaneth Walton Social History Date Type Detail Facility [facility]: [facility] Start: 1950 Sex Assigned At Female F [facility] Tobacco smoking stat [facility] Unknown if ever smoked [facility] Work Phone: Vital Signs Date Time Vital Sign Value Performing Clinician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 DATE CREATED AUTHOR AUTHOR'S ORGANIZ ATION 07/05/2022 [facility] DATE CREATED AUTHOR AUTHOR'S ORGANIZ ATION 02/02/2023 [facility] DATE CREATED AUTHOR AUTHOR'S ORGANIZ ATION 08/17/2023 [place] DATE CREATED AUTHOR AUTHOR'S ORGANIZ ATION 08/23/2023 [facility] Goals (unrecognized section and content) Goals may be documented in a n alternate sectionGoals may be documented in an alternate sectionGoals may be documented in an alternate section Care Teams (unrecognized sec tion and content) Team Status: Active Member Role Status Dates Miguel Allen MD Primary Care Provider Active Team Status: Active Member Role Status Dates Tatiana Douglas MD Attending Provider Active Start: July 25, 2023 Miguel Allen MD Primary Care Provider Active Start: July 25, 2023 Team Status: Inactive Member Role Status Dates Carol Kennedy MD Primary Care Provider Active S tart: July 25, 2023 End: July 25, 2023 Tatiana Douglas MD Attending Provider Active Start: July 25, 2023 End: July 25, 2023 Team Status: Inactive Member Role Status Dates Miguel Allen MD Primary Care Provider Active Start: August 08, 2023 End: August 08, 2023 Tatiana Douglas MD Attending Provider Active Start: August 08, 2023 End: August 08, 2023 FOR RECORDS PERTAINING TO PATIENTS WHO ARE [...] BE BASED ON THE PRIMARY CLINICAL RECORDS. [facility] [employer] provides no warranty or guarantee of the accuracy or completeness of information in this document.
== END 2023-08-24 07:56 | disposition home or self-care (01) ==
LOC: MAMMO 07:55
PROVIDERS: PCP Family Medicine; Visit Provider Family Medicine
DX: Z12.31 Encounter for screening mammogram for malignant neoplasm of breast (principal); Z80.0 Family history of malignant neoplasm of digestive organs
CPT/HCPCS: 77063; 77067

== ENCOUNTER 2023-12-26 09:58 | Outpatient (OUT) | payer MEDICARE, OTHER, SELFPAY ==
--- OUTSIDE RECORDS SUMMARY | 2023-12-26 10:02 | XMS_ITS | CCD ---
Author Organization [facility] Care Team Providers Care Foreign Student Adviser Name Role Phone KENNEDY ., DR CAROL Vyas Primary Care Unavailable KELLY, LEIGH Admitting Unavailable KELLY, LEIGH Attending Unavailable MISAEL, DR TATIANA Tracy Admitting Unavailable KENNEDY ., DR CAROL Vyas Primary Care Unavailable MISAEL, DR TATIANA Tracy Attending Unavailable MISAEL, DR TATIANA Tracy Consulting Unavailable KENNEDY ., DR CAROL Vyas Primary Care Unavailable ANDREWADADeacon, DR SINGH Consulting Unavailable MARIANNE, DR SINGH Admitting Unavailable HALPRESTON, DR SINGH Attending Unavailable KENNEDY ., DR [...] Care Unavailable MARIANNE, DR SINGH Admitting Unavailable ANDREWADADeacon, DR SINGH Attending Unavailable KENNEDY ., DR [...] Attending Unavailable MD Tatiana Douglas Attending Provider [phone] MD Miguel Allen Primary Care Provider [phone] Miguel Allen. Attending Unavailable Miguel Allen Attending Unavailable Miguel Allen Attending Unavailable MD Miguel Allen Primary Care Provider MD Tatiana Douglas Attending Provider [phone] ANGELIA SALAZAR Attending Unavailable Tatiana Douglas Attending Unavailable Miguel Allen Primary Care Unavailable Tatiana Douglas Admitting Unavailable Tatiana Douglas Admitting Unavailable Tatiana Douglas Attending Unavailable Miguel Allen Primary Care Unavailable Allergies Allergy Classification Reported Allergen(s) Allergy Type Date of Onset Reaction(s) Facility Anti-Epileptic Agents (1 source) gabapentin Drug Allergy 08-08-19 Insomnia [facility] Dihydrofolate Reductase Inhibitors (antibiotic) (1 source) Trimethoprim Drug Allergy 08-08-19 [facility] Latex (1 source) Latex Substance Allergy 08-08-19 blisters at site of contact [facility] Opioid Agonists (3 sources) Meperidine Drug Allergy 08-08-19 Nausea [facility] Sulfonamides (antibiotic) (1 source) Sulfamethoxazole Drug Allergy 08-08-19 [facility] (4 sources) gabapentin Drug Allergy 07-15-19 Insomnia [facility] Rep[facility] (1 source) Sulfamethoxazole / Trimethoprim Drug Allergy [facility] (1 source) Sulfonamides (Antibiotic) Drug allergy (disorder) 08-21-19 15 [facility] Rep[facility] (4 sources) Latex; Translations: [latex] Allergy to substance 07-15-19 blisters at site of contact [facility] (4 sources) Meperidine; Translations: [meperidine] Drug Allergy 07-15-19 [facility] (5 sources) Morphine; Translations: [morphine] Drug Allergy 07-15-19 [facility] (4 sources) oxyCODONE; Translations: [oxycodone] Drug Allergy 07-15-19 [facility] (4 sources) Sulfamethoxazole; Translations: [sulfamethoxazole] Drug Allergy 07-15-19 [facility] (4 sources) Trimethoprim; Translations: [trimethoprim] Drug Allergy 07-15-19 [facility] (1 source) Acetaminophen / oxyCODONE; Translations: [Percocet] Drug Allergy [facility] Rep[facility] (1 source) gabapentin; Translations: [Neurontin] Drug Allergy [facility] Repository (1 source) Meperidine; Translations: [Demerol] Drug Allergy [facility] Repository (1 source) Sulfonamides (Antibiotic); Translations: [sulfa drugs] Propensity to adverse reactions (disorder) [facility] Repository (1 source) gabapentin Drug Allergy 08-29-19 [facility] Repository Medications Current Medications Medication Drug Class(es) Dates Sig (Normalized) Sig (Original) Carboxymethylcellulose Sodium (Refresh Tears) 0.5 % Drops (4 sources) Start: 12-20-19 Carboxymethylcellulose Sodium (Refresh Tears) 0.5 % Drops Active 1 DROPS OPHTHALMIC 4-12 TIMES PER DAY December 19, 2016 12:00am cholecalciferol 0.05 mg oral capsule (7 sources) Vitamin D Start: 07-25-19 take 50 ug by mouth once daily Cholecalciferol (Vitamin D3) Active 50 MCG PO Daily July 25, 2023 12:00am Start: 12-19-2016 End: 06-22-2017 take 1 tablet by mouth once daily Cholecalciferol (Vitamin D3) (Vitamin D3) 5,000 unit Tablet Discontinued 5000 UNIT PO Daily December 19, 2016 12:00am June 22, 2017 10:11am fluocinonide 0.0005 mg/mg topical ointment (3 sources) Corticosteroid Start: 07-25-2023 Fluocinonide Active 1 APPLIC TOPICAL Twice daily July 25, 2023 12:00am furosemide 20 mg oral tablet (4 sources) Loop Diuretic Start: 06-22-2017 take 20 mg by mouth once daily Furosemide Active 20 MG PO Daily June 22, 2017 12:00am hydroxychloroquine sulfate 200 mg oral tablet (4 sources) Antimalarial, Antirheumatic Agent Start: 12-19-2016 take 1 tablet by mouth twice daily Hydroxychloroquine (Plaquenil) 200 mg Tablet Active 200 MG PO Twice daily December 19, 2016 12:00am alternate once a day eod 200mg ketoconazole 20 mg/ml topical cream (3 sources) Azole Antifungal Start: 07-25-2023 Ketoconazole Active 1 APPLIC TOPICAL Daily July 25, 2023 12:00am levothyroxine sodium 0.05 mg oral tablet (4 sources) l-Thyroxine Start: 12-19-2016 take 50 ug by mouth once daily Levothyroxine Active 50 MCG PO Daily December 19, 2016 12:00am lisinopril 10 mg oral tablet (4 sources) Angiotensin Converting Enzyme Inhibitor Start: 12-19-2016 take 10 mg by mouth once daily Lisinopril Active 10 MG PO Daily December 19, 2016 12:00am metroNIDAZOLE 7.5 mg/ml topical cream (3 sources) Nitroimidazole Antimicrobial Start: 07-25-2023 Metronidazole Active 1 APPLIC TOPICAL Daily July 25, 2023 12:00am naproxen sodium 220 mg oral tablet (3 sources) Nonsteroidal Anti-inflammatory Drug Start: 07-25-2023 take 220 mg by mouth twice daily Naproxen Sodium Active 220 MG PO Twice daily July 25, 2023 12:00am potassium chloride 10 meq extended release oral capsule (4 sources) Start: 06-22-2017 take 10 mEq by mouth once daily Potassium Chloride Active 10 MEQ PO Daily June 22, 2017 12:00am Completed/Discontinued Medications Medication Drug Class(es) Dates Sig (Normalized) Sig (Original) atorvastatin 10 mg oral tablet (8 sources) HMG-CoA Reductase Inhibitor Start: 12-19-2016 End: 10-15-2017 take 10 mg by mouth once daily Atorvastatin Discontinued 10 MG PO Daily June 22, 2017 12:00am October 15, 2017 10:46am chlorthalidone 25 mg oral tablet (4 sources) Thiazide-like Diuretic Start: 12-19-2016 End: 06-22-2017 take 12.5 mg by mouth once daily Chlorthalidone Discontinued 12.5 MG PO Daily December 19, 2016 12:00am June 22, 2017 10:11am ibandronic acid 150 mg oral tablet (4 sources) Bisphosphonate Start: 12-19-2016 End: 08-29-2023 take 1 tablet by mouth every month Ibandronate (Boniva) 150 mg Tablet Discontinued 150 MG PO every month December 19, 2016 12:00am August 29, 2023 1:56pm omeprazole 20 mg delayed release oral capsule (4 sources) Proton Pump Inhibitor Start: 12-19-2016 End: [...] Neoplasms of unspecified nature or uncertain behavior (14 sources) Monoclonal gammopathy; Translations: [Monoclonal gammopathy of uncertain significance] Onset: 2 Chronic Nutritional deficiencies (1 source) Vitamin D deficiency, unspecified; Translations: [VITAMIN D DEFICIENCY UNSPECIFIED] Onset: 2 Chronic Osteoporosis (8 sources) Osteoporosis; Translations: [Age-related osteoporosis without current pathological fracture] 03-21-2023 Chronic Other bone disease and musculoskeletal deformities (4 sources) Osteopenia; Translations: [Other specified disorders of bone density and structure, unspecified site] 12-23-2016 Episodic Other connective tissue disease (1 source) Abnormal posture; Translations: [ABNORMAL POSTURE] Onset: 3 Episodic Other endocrine disorders (4 sources) Hyperparathyroidism; Translations: [Hyperparathyroidism, unspecified] 06-22-2017 Chronic Other nervous system disorders (3 sources) Peripheral nerve disease ; Translations: [Polyneuropathy, unspecified] 07-25-2023 Chronic Other nervous system disorders (4 sources) Polyneuropathy, unspecified; Translations: [Unspecified hereditary and [...] Chronic Other nutritional; endocrine; and metabolic disorders (4 sources) Hypercalcemia; Translations: [Hypercalcemia] 12-22-2016 Chronic Residual codes; unclassified (4 sources) History of parathyroidectomy; Translations: [Other specified postprocedural states] 01-14-2021 Episodic Residual codes; unclassified (4 sources) Other specified postprocedural states; Translations: [Other postprocedural status] 07-25-2023 Episodic Spondylosis; intervertebral disc disorders; other back problems (8 sources) Radiculopathy, lumbosacral region; Translations: [Intervertebral disc disorders with radiculopathy, lumbar region] Onset: 2 Episodic Systemic lupus erythematosus and connective tissue disorders (16 sources) Systemic involvement of connective tissue, unspecified; 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] Onset: 2 Chronic Thyroid disorders (1 source) Autoimmune thyroiditis; Translations: [AUTOIMMUNE THYROIDITIS] Onset: 2 Chronic Unclassified (1 source) LOW BACK PAIN, UNSPECIFIED; Translations: [LOW BACK PAIN, UNSPECIFIED] Onset: 2 Past or Other Problems Problem Classification Problem Date Documented Da te Episodic/Chronic Other aftercare (1 source) Other exterminator helper (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 therapy; Translations: [OTH RN ORTHO CURRENT DRUG THERAPY] Onset: 12-25-2021 Episodic Other [...] Test Name Value Interpretation Reference Range Facility Basophil percentageOrdered B y: Tatiana Misael on 08-22-2023 Basophil percentage 100 ug/dL 80-158 [facility] Comment on above: This test was develo ped and its performance characteristicsdetermined by [facility]. It has not been cleared orapproved by the Food and Drug Administration. Detection Limit = 5Performed at: [facility] [address] [id number] Director: Camila Mckeon MD, Phone: [phone] Beta 2 Microglobulin, Serumo n 08-22-2023 Beta 2 Microglobulin, Serum 2.3 mg/L Normal 0.6-2.4 [facility] Comment on above: Result Comment: [facility] Immulite 2000 Immunochemiluminometric assay (ICMA) Values obtained with different assay methods or kits cannot be used interchangeably. Results cannot be interpreted as absolute evidence of the presence or absence of malignant disease. Performed at: [address] [id number] Hide Washer: Camila Mckeon MD, Phone: [phone] PERFORMED BY: [place] [address] PATHOLOGIST PYROTECHNIST DOMI SMITH M.D. Performed By: #### C ERULOP, B2-MICRO, CU ####[facility] ,#### [id number] ####[address] Ceruloplasminon 08-22-2023 Ceruloplasmin 22.1 mg/dL Normal 19.0-39.0 [facility] Comment on above: Result Comment: Perf ormed at: [address] [id number] Hide Washer: Kristian Castro PhD, Phone: [phone] PERFORMED BY: [address] [place] [address] PATHOLOGIST PYROTECHNIST DOMI SMITH M.D. Performed By: #### C ERULOP, B2-MICRO, CU ####[facility] ,#### [id number] ####[address] Copperon 08-22-2023 Copper 100 ug/dL Normal 80-158 [facility] Comment on above: Result Comment: This test was developed and its performance characteristics determined by [facility]. It has not been cleared or approved by the Food and Drug Administration. Detection Limit = 5 Performed at: [facility] [place] [address] [place], [place] [id number] Hide Washer: Camila Mckeon MD, Phone: [phone] Performed By: #### C ERULOP, B2-MICRO, CU ####[facility] ,#### [id number] ####[facility] [id number] Folate [Mass/volume] in Seru m or PlasmaOrdered By: Tatiana Douglas on 08-22-2023 Folate [Mass/Vol] 17.8 ng/mL >5.9 [facility] Comment on above: Folate reference ran ge: >5.9 ng/mlThe WHO technical consultation on folate and vitamin [id number] has determined that folate concentrations lessthan 4 ng/ml are considered deficient. Serum or plasma blue-8-uubby globulin measurement (mass/volume)Ordered By: Tatiana Douglas on 08-22-2023 Tejj-8-Wflvktaaxtvgo [Mass/Vol] 2.3 ug/mL 0.6-2.4 [facility] Comment on above: Siemens Immulite 200 0 Immunochemiluminometric assay (ICMA)Values obtained with different assay methods or kits cannotbe used interchangeably. Results cannot be interpreted asabsolute evidence of the presence or absence of malignantdisease.Performed at: [facility] [address] [id number] Director: Camila Mckeon MD, Phone: [phone] Serum or plasma ceruloplasmi n measurement (mass/volume)Ordered By: Tatiana Douglas on 08-22-2023 Ceruloplasmin [Mass/Vol] 22.1 mg/dL 19.0-39.0 [facility] Comment on above: Performed at: [facility] jacey [address] [id number] Director: Kristian Castro PhD, Phone: [phone] Vit. B12/Folate Profileon Folate 17.8 ng/mL Normal >5.9 [facility] Comment on above: Result Comment: Destinee te reference range: >5.9 ng/ml The WHO technical consultation on folate and vitamin b12 deficiencies has determined that folate concentrations less than 4 ng/ml are considered deficient. PERFORMED BY: [facility] [address] [place] [address] PATHOLOGIST PYROTECHNIST DOMI SMITH M.D. Performed By: #### C ERULOP, B2-MICRO, CU ####[facility] ,#### [id number] ####[address] Vitamin B12 ser/plasOrdered By: Tatiana Douglas on 08-22-2023 Cobalamin (Vitamin B12) [Mass/Vol] 284 pg/mL Normal 180-914 [facility] Comment on above: Performed By: #### C ERULOP, B2-MICRO, CU ####[facility] ,#### [id number] ####[address] XR bone surveyon 08-22-2023 XR bone survey [facility] [address] [place] [address] XRay Report Signed Patient: Misty Perez MR#: [id number] 43 : 1950 Acct:[id number] Age/Sex: 73 / F ADM Date: 08/22/23 Loc: Room: Type: [facility] Attending Dr: Tatiana Douglas MD Copies [...] Ramu Rivera M.D.08/22/2023 11:53 AM Dictation Location: [place] [address] Transcribed By: [facility] 08/22/23 1153 Dictated By: Ramu Rivera DO 08/22/23 1150 Signed By: 08/22/23 1153 Normal [facility] Lab Reportson 08-16-2023 Lab Reports [id number] Normal [facility] Correspo ndenceon 08-16-2023 Outside [facility] Correspondence [id number] Normal [facility] Ambulatory Visit Summaryon 0 08-09-2023 Ambulatory Visit [...] 1% cream) naproxen potassium chloride (Potassium Chloride (Wyn-Ktsl-Nls 10) 10 mEq oral tablet, extended release) [...] Follow-Up Appointments 2023 1:00 PM EDT Where: [facility] Bita Normal [facility] Family Medicine Office/Clini c Noteon 08-09-2023 Family Medicine Office/Clinic Note HPI Staff Misty is a 73 year old female presenting for a yearly wellness Has AMW scheduled for 12/27/23 Health Maintenance: Colonoscopy: 2019 good for 10 years Dexa: ordered being done next week Mammo: due Pap: hysterectomy no longer gets them Last Labs: 07/24/22 questions/concerns: needs mammogram order ( [facility]) M spike is up to 1, had a bone marrow test done yesterday and PET scan scheduled for august 21. If it's multiple myeloma might have stem cell and if it's m-kat ( plasma issue) they will discuss treatment for that. Saw Business Case Analyst txing her for little bumps back of [...] of breast) - Mammo already ordered for H 8. Nonsmoker (Z78.9: Other specified health status) [...] DAILY, # 90 EA, Refills(s) 0, Pharmacy: [facility] 1155, 146, cm, 08/09/23 10:30:00 EDT, Height/Length Dosing, 70.6, kg, 08/09/23 10:30:00 EDT, Weight Dosing levothyroxine, 50 mcg = 1 tab(s), Oral, Daily, # 90 tab(s), Refills(s) 1, Pharmacy: [facility] 1155, 146, cm, 08/09/23 10:30:00 EDT, Height/Length [...] Daily, PRN ketoconazole Top 2% Shampoo, 1 malia, Topical, Every other day levothyroxine 50 mcg (0.05 mg) Tab, 50 mcg= 1 tab(s), Oral, Daily, 1 refills lisinopril 10 mg Tab, 10 mg= 1 tab(s), Oral, Daily, 1 refills metronidazole topical 1% cream, 1 a (more content not included)... Normal [facility] Comment on above: Result Comment: Elec tronically Signed By: Alejandro BRADFORD, Miguel Noriega.br\Date and Time Signed: 08/09/23 11:03 EDT Activated partial thrombopla stin time (aPTT) in platelet poor plasma by coagulation aOrdered By: Tatiana Douglas on 08-08-2023 aPTT Coag (PPP) [Time] 32.9 s 25.1-36.[address] [facility] Comment on above: A hematocrit value g reater than 55% may lead to inaccurate results in coagulation testing. Patients having hematocrit values >55% require a special collection tube for coagulation studies. Please contact the laboratory at [phone] for redraw instructions. Automated basophil %Ordered By: Tatiana Douglas on 08-08-2023 Basophils/100 WBC (Bld) 0.8 % Normal . [facility] Comment on above: Performed By: #### C BC #### [address] Automated basophil countOrde red By: Tatiana Douglas on 08-08-2023 Basophils (Bld) [#/Vol] 0.0 10*3/uL Normal 0.0-0.2 [facility] Comment on above: Result Comment: PERF ORMED BY: [address] [place] [address] PATHOLOGIST PYROTECHNIST DOMI SMITH M.D. Performed By: #### C BC #### [address] Automated blood monocyte cou ntOrdered By: Tatiana Douglas on 08-08-2023 Monocytes (Bld) [#/Vol] 0.5 10*3/uL Normal 0.0-0.8 [facility] Comment on above: Performed By: #### C BC #### [address] Automated eosinophil %Ordere d By: Tatiana Douglas on 08-08-2023 Eosinophils/100 WBC (Bld) 2.2 % Normal . [facility] Comment on above: Performed By: #### C BC #### [address] Automated eosinophil countOr dered By: Tatiana Douglas on 08-08-2023 Eosinophils (Bld) [#/Vol] 0.1 10*3/uL Normal 0.0-0.45 [facility] Comment on above: Performed By: #### C BC #### [address] Automated monocyte %Ordered By: Tatiana Douglas on 08-08-2023 Monocytes/100 WBC (Bld) 9.4 % Normal . [facility] Comment on above: Performed By: #### C BC #### [address] Automated neutrophil %Ordere d By: Tatinaa Douglas on 08-08-2023 Neutrophils/100 WBC (Bld) 62.6 % Normal . [facility] Comment on above: Performed By: #### C BC #### [address] guided bone marrow bx/asp iron 08-08-2023 CT guided bone marrow bx/aspir [facility] Main [address] [place] [address] CT Scan Report Signed Patient: Misty Perez MR#: [id number] 44 : 1950 Acct:[id number] Age/Sex: 73 / F ADM Date: 08/08/23 Loc: CT Room: Type: [facility] Attending Dr: Tatiana Douglas MD Copies to: [...] Tommy Mathur M.D.08/08/2023 3:03 PM Dictation Location: [place] [address] Transcribed By: [facility] 08/08/23 1503 Dictated By: Tommy Mathur II, MD 08/08/23 1501 Signed By: 08/08/23 1503 Normal [facility] Coagulation Profileon 2023 aPTT Coag (Bld) [Time] 32.9 s Normal 25.1-36.5 [facility] Comment on above: Order Comment: STAT FOR BX Result Comment: A he matocrit value greater than 55% may lead to inaccurate results in coagulation testing. Patients having hematocrit values >55% require a special collection tube for coagulation studies. Please contact the laboratory at [phone] for redraw instructions. PERFORMED BY: [place] [address] PATHOLOGIST PYROTECHNIST DOMI SMITH M.D. Performed By: #### P P ####[address] Complete Blood Count Auto Di ffon 08-08-2023 Mean Corpuscular HGB Conc 33.6 g/dL Normal 32.0-35.0 [facility] Comment on above: Performed By: #### C BC #### [address] NRBC% 0.1 /100{WBC} Normal 0-0.5 [facility] Comment on above: Performed By: #### C BC #### [address] Erythrocyte distribution wid th [Ratio] by Automated countOrdered By: Tatiana Misael on 08-08-2023 Erythrocyte distribution width (RBC) [Ratio] 13.6 % Normal 11.9-15.3 [facility] Comment on above: Performed By: #### C BC #### [address] Erythrocytes [#/volume] in B lood by Automated countOrdered By: Tatiana Misael on 08-08-2023 RBC (Bld) [#/Vol] 4.38 10*6/uL Normal 3.60-5.00 [facility] Comment on above: Performed By: #### C BC #### [address] Hematocrit [Volume Fraction] of Blood by Automated countOrdered By: Tatiana Misael on 08-08-2023 Hematocrit (Bld) [Volume fraction] 39.8 % Normal 34.0-46.4 [facility] Comment on above: Performed By: #### C BC #### [address] Hemoglobin [Mass/volume] in BloodOrdered By: Tatiana Douglas on 08-08-2023 Hemoglobin (Bld) [Mass/Vol] 13.4 g/dL Normal 11.8-15.4 [facility] Comment on above: Performed By: #### C BC #### [address] INR in Platelet poor plasma by Coagulation assayOrdered By: Tatiana Douglas on 08-08-2023 INR Coag (PPP) [Relative time] 0.9 {INR} Normal [facility] Comment on above: INR Therapeutic Rang e [...] - 4.5 Performed By: #### P P ####[facility] [address] [place] [address] [facility] 08-08-2023 L Specimen: Received: 08/08/23 Status: FERNANDO Allen Num: [id number] Spec Type: Bone [facility] Dr: Tommy Mathur II, MD Tissues: A Bone Marrow Aspirate (Clot) (LT ILIAC CREST) B Bone Marrow Biopsy/Core (LT ILIAC CREST) Procedures: Peripheral Smr, Iron/2, HE/4, Gross/Micro L4/2, Bm Smear/2, Congo Red, AE1-AE3, CD138, CD20, CD3, CD34, CD56, Decalcification, IHC First AB, IHC Add AB, Bone Marrow TP, Iron smear/2, GIEMSA STN/7 Age/ Patient Sex Location Account Attending Physician Misty Perez 73/F CT [id number] Tatiana Douglas MD SPEC NUM: [id number] RECD: 08/08/23 STATUS: FERNANDO ALLEN NUM: [id number] ADRON: 08/08/[address] [facility] [address]: Tommy Mathur II, MD ENTERED: 08/08/[address] [facility] [address]: Tatiana Douglas MD SPEC TYPE: Bone [facility] DEPT: ORDERED: Peripheral Smr, Iron/2, HE/4, Gross/Micro L4/2, Bm Smear/2, Congo Red, AE1-AE3, CD138, CD20, CD3, CD34, CD56, Decalcification, IHC First AB, IHC Add AB, Bone Marrow TP, Iron smear/2, GIEMSA STN/7 ORDERED: Peripheral Smr, Iron/2, HE/4, Gross/Micro L4/2, Bm Smear/2, Congo Red, AE1-AE3, CD138, CD20, CD3, CD34, CD56, USS/12, Decalcification, IHC First AB, IHC Add AB, Bone Marrow TP, Iron smear/2, GIEMSA STN/ Supplemental Report Addendum 1 Entered: 10/02/23-145 Congo red special stain is negative for amyloid. Addendum Signed (signature on file) Shalonda Lewis MD 10/02/23 1453 Pathological Diagnosis Bone Marrow, Iliac Crest (core Biopsy, Clot And Aspirate Smears): Normocellular bone marrow (for age) with adequate trilineage hematopoiesis and mild plasmacytosis consistent with monoclonal gammopathy of undetermined significance (MGUS). Specimen: [id number] Received: 08/08/23-1157 Status: FERNANDO Pizarro Num: [id number] Spec Type: Bone Marro Eren Dr: Tommy Mathur, MD ELOY Tissues: A Bone Marrow Aspirate (Clot) (LT ILIAC CREST) B Bone Marrow Biopsy/Core (LT ILIAC CREST) Procedures: Peripheral Smr, Iron/2, HE/4, Gross/Micro L4/2, Bm Smear/2, Congo Red, AE1-AE3, CD138, CD20, CD3, CD34, CD56, Decalcification, IHC First AB, IHC Add AB, Bone Marrow TP, Iron smear/2, GIEMSA STN/ Patient: Misty Perez [id number] (Continued) Specimen: [id number] Received: 08/08/23 (Continued) Pathological Diagnosis (Continued) Signed (signature on file) Shalonda Lewis MD 08/14/23 1914 Specimen: [id number] Received: 08/08/23 Status: FERNANDO Pizarro Num: [id number] Spec Type: Bone Marro Eren Dr: Tommy Mathur, MD ELOY Tissues: A Bone Marrow Aspirate (Clot) (LT ILIAC CREST) B Bone Marrow Biopsy/Core (LT ILIAC CREST) Procedures: Peripheral Smr, Iron/2, HE/4, Gross/Micro L4/2, Bm Smear/2, Congo Red, AE1-AE3, CD138, CD20, CD3, CD34, CD56, Decalcification, IHC First AB, IHC Add AB, Bone Marrow TP, Iron smear/2, GIEMSA /7 Patient: Misty Perez [id number] (Continued) Specimen: [id number] Received: 08/08/23-1157 (Continued) Pathological Diagnosis (Continued) Comment: Bone Marrow Is Normocellular For Age, [...] and follow-up are suggested. CBC And Differential Erythrocytes: Adequate. Leukocytes: Adequate. Platelets: Adequate. Aspirate Smear Erythropoiesis: Normoblastic. Myeloid Leukogenesis: Normoplastic. Megakaryocytogenesis: Normoplastic. Core Biopsy Erythropoiesis: Adequate. Myeloid Leukogenesis: Adequate. Megakaryocytogenesis: Adequate. Special Stains Iron: Adequate bone marrow iron stores. (more content not included)... Normal [facility] Leukocytes [#/volume] correc annie for nucleated erythrocytes in Blood by Automated counOrdered By: Tatiana Douglas on 08-08-2023 WBC corrected for nucl RBC Auto (Bld) [#/Vol] 5.7 10*3/uL 3.8-11.6 [facility] Leukocytes [#/volume] in Blo od by Automated countOrdered By: Tatiana Douglas on 08-08-2023 WBC (Bld) [#/Vol] 5.7 10*3/uL Normal 3.8-11.6 [facility] Comment on above: Performed By: #### C BC #### [place] [address] [place] Lymphocytes [#/volume] in Bl ood by Automated countOrdered By: Tatiana Douglas on 08-08-2023 Lymphocytes (Bld) [#/Vol] 1.4 10*3/uL Normal 1.00-4.8 [facility] Comment on above: Performed By: #### C BC #### [address] Lymphocytes/100 leukocytes i n Blood by Automated countOrdered By: Tatiana Douglas on 08-08-2023 Lymphocytes/100 WBC (Bld) 25.0 % Normal . [facility] Comment on above: Performed By: #### C BC #### [address] MCH [Entitic mass] by Automa annie countOrdered By: Tatiana Douglas on 08-08-2023 MCH (RBC) [Entitic mass] 30.5 pg Normal 24.7-34.3 [facility] Comment on above: Performed By: #### C BC #### [address] MCHC Auto (RBC) [Mass/Vol]Or dered By: Tatiana Douglas on 08-08-2023 MCHC (RBC) [Mass/Vol] 33.6 g/dL 32.0-35.0 [facility] MCV [Entitic volume] by Auto mated countOrdered By: Tatiana Douglas on 08-08-2023 MCV (RBC) [Entitic vol] 90.9 fL Normal 80-100 [facility] Comment on above: Performed By: #### C BC #### [address] Neutrophils [#/volume] in Bl ood by Automated countOrdered By: Tatiana Douglas on 08-08-2023 Neutrophils (Bld) [#/Vol] 3.6 10*3/uL Normal 1.8-7.7 [facility] Comment on above: Performed By: #### C BC #### [address] Nucleated erythrocytes [Pres ence] in Blood by Automated countOrdered By: Tatiana Douglas on 08-08-2023 Nucleated RBC Auto Ql (Bld) 0.1 /100{WBC} 0-0.5 [facility] Platelet mean volume [Entiti c volume] in Blood by Automated countOrdered By: Tatiana Douglas on 08-08-2023 Platelet mean volume (Bld) [Entitic vol] 9.4 fL Normal 6.3-10.7 [facility] Comment on above: Performed By: #### C BC #### [address] Platelets [#/volume] in Bloo d by Automated countOrdered By: Tatiana Douglas on 08-08-2023 Platelets (Bld) [#/Vol] 183 10*3/uL Normal 150-450 [facility] Comment on above: Performed By: #### C BC #### [address] Prothrombin time (PT)Ordered By: Tatiana Douglas on 08-08-2023 PT Coag (PPP) [Time] 10.7 s Normal 9.0-12.9 [facility] Comment on above: A hematocrit value g reater than 55% may lead to inaccurate results in coagulation testing. Patients having hematocrit values >55% require a special collection tube for coagulation studies. Please contact the laboratory at [phone] for redraw instructions. Order Comment: STAT FOR BX Result Comment: A he matocrit value greater than 55% may lead to inaccurate results in coagulation testing. Patients having hematocrit values >55% require a special collection tube for coagulation studies. Please contact the laboratory at [phone] for redraw instructions. Performed By: #### P P ####[facility] [id number] Consultation Noteon 07-25-19 Consultation Note [id number] Normal [facility] Alanine aminotransferase [En zymatic activity/volume] in Serum or PlasmaOrdered By: Tatiana Douglas on 07-18-2023 ALT [Catalytic activity/Vol] 15 U/L Normal 7-52 [facility] Comment on above: Performed By: #### K APPA, SPE, MG SERUM, UPE RAND #### [facility] , #### PROCRERAT, SCAN CBC, CMP #### [facility] [address] Albumin [Mass/volume] in Ser um or PlasmaOrdered By: Tatiana Douglas on 07-18-2023 Albumin [Mass/Vol] 3.9 g/dL Normal 2.9-4.4 [facility] Comment on above: Performed By: #### K APPA, SPE, MG SERUM, UPE RAND #### [facility] , #### PROCRERAT, SCAN CBC, CMP #### [facility] [address] Albumin [Mass/volume] in Ser um or Plasma by Bromocresol green (BCG) dye binding methoOrdered By: Tatiana Douglas on 07-18-2023 Albumin BCG dye [Mass/Vol] 4.4 g/dL 3.5-5.7 [facility] Albumin/Protein.total in 24 hour Urine by ElectrophoresisOrdered By: Tatiana Douglas on 07-18-2023 Albumin Elph (24H U) [Mass fraction] 23.6 % . [facility] Alkaline phosphatase [Enzyma tic activity/volume] in Serum or PlasmaOrdered By: Tatiana Douglas on 07-18-2023 ALP [Catalytic activity/Vol] 84 U/L Normal 34-104 [facility] Comment on above: Result Comment: PERF ORMED BY: [place] [address] PATHOLOGIST PYROTECHNIST ODMI SMITH M.D. Performed By: #### K APPA, SPE, MG SERUM, UPE RAND #### [facility] , #### PROCRERAT, SCAN CBC, CMP #### [facility] [address] [place] [address] Aspartate aminotransferase [ Enzymatic activity/volume] in Serum or PlasmaOrdered By: Tatiana Douglas on 07-18-2023 AST [Catalytic activity/Vol] 23 U/L Normal 13-39 [facility] Comment on above: Performed By: #### K APPA, SPE, MG SERUM, UPE RAND #### [facility] , #### PROCRERAT, SCAN CBC, CMP #### [facility] [address] [place] [address] Automated basophil %Ordered By: Tatiana Douglas on 07-18-2023 Basophils/100 WBC (Bld) 0.7 % Normal . [facility] Comment on above: Performed By: #### K APPA, SPE, MG SERUM, UPE RAND #### [facility] , #### PROCRERAT, SCAN CBC, CMP #### [facility] [address] [place] [address] Automated basophil countOrde red By: Tatiana Douglas on 07-18-2023 Basophils (Bld) [#/Vol] 0.0 10*3/uL Normal 0.0-0.2 [facility] Comment on above: Performed By: #### K APPA, SPE, MG SERUM, UPE RAND #### [facility] , #### PROCRERAT, SCAN CBC, CMP #### [facility] [address] [place] [address] Automated blood monocyte cou ntOrdered By: Tatiana Douglas on 07-18-2023 Monocytes (Bld) [#/Vol] 0.5 10*3/uL Normal 0.0-0.8 [facility] Comment on above: Performed By: #### K APPA, SPE, MG SERUM, UPE RAND #### [facility] , #### PROCRERAT, SCAN CBC, CMP #### [facility] [address] [place] [address] Automated eosinophil %Ordere d By: Tatiana Vicentese on 07-18-2023 Eosinophils/100 WBC (Bld) 2.8 % Normal . [facility] Comment on above: Performed By: #### K APPA, SPE, MG SERUM, UPE RAND #### [facility] , #### PROCRERAT, SCAN CBC, CMP #### [facility] [address] [place] [address] Automated eosinophil countOr dered By: Tatiana Vicentese on 07-18-2023 Eosinophils (Bld) [#/Vol] 0.2 10*3/uL Normal 0.0-0.45 [facility] Comment on above: Performed By: #### K APPA, SPE, MG SERUM, UPE RAND #### [facility] , #### PROCRERAT, SCAN CBC, CMP #### [facility] [address] [place] [address] Automated monocyte %Ordered By: Tatiana Vicentese on 07-18-2023 Monocytes/100 WBC (Bld) 8.2 % Normal . [facility] Comment on above: Performed By: #### K APPA, SPE, MG SERUM, UPE RAND #### [facility] , #### PROCRERAT, SCAN CBC, CMP #### [address] Automated neutrophil %Ordere d By: Tatiana Vicentese on 07-18-2023 Neutrophils/100 WBC (Bld) 69.5 % Normal . [facility] Comment on above: Performed By: #### K APPA, SPE, MG SERUM, UPE RAND #### [facility] , #### PROCRERAT, SCAN CBC, CMP #### [facility] [address] Bilirubin.total [Mass/volume ] in Serum or PlasmaOrdered By: Tatiana Douglas on 07-18-2023 Bilirubin [Mass/Vol] 0.7 mg/dL Normal 0.3-1.0 [facility] Comment on above: Performed By: #### K APPA, SPE, MG SERUM, UPE RAND #### [facility] , #### PROCRERAT, SCAN CBC, CMP #### [facility] [address] [place] [address] [place] Edwina cells [Presence] in Blo od by Light microscopyOrdered By: Tatiana Douglas on 07-18-2023 Edwina cells LM Ql (Bld) [facility] Calcium [Mass/volume] in Ser um or PlasmaOrdered By: Tatiana Douglas on 07-18-2023 Calcium [Mass/Vol] 9.7 mg/dL Normal 8.6-10.3 [facility] Comment on above: Performed By: #### K APPA, SPE, MG SERUM, UPE RAND #### [facility] , #### PROCRERAT, SCAN CBC, CMP #### [facility] [address] [place] [address] Carbon dioxide, total [Moles /volume] in Serum or PlasmaOrdered By: Tatiana Douglas on 07-18-2023 CO2 [Moles/Vol] 30.4 mmol/L Normal 21.0-31.0 [facility] Comment on above: Performed By: #### K APPA, SPE, MG SERUM, UPE RAND #### [facility] , #### PROCRERAT, SCAN CBC, CMP #### [facility] [address] [place] [address] [place] Chloride [Moles/volume] in S ousmane or PlasmaOrdered By: Tatiana Douglas on 07-18-2023 Chloride [Moles/Vol] 107 mmol/L Normal 98-107 [facility] Comment on above: Performed By: #### K APPA, SPE, MG SERUM, UPE RAND #### [facility] , #### PROCRERAT, SCAN CBC, CMP #### [facility] [address] [place] [address] Comprehensive Metabolic Pane kourtney 07-18-2023 Albumin [Mass/Vol] 4.4 g/dL Normal 3.5-5.7 [facility] Comment on above: Performed By: #### K APPA, SPE, MG SERUM, UPE RAND #### [facility] , #### PROCRERAT, SCAN CBC, CMP #### [address] GFR/1.73 sq M.predicted MDRD (S/P/Bld) [Vol rate/Area] mL/min/{1.73_m2} Normal [facility] Comment on above: Performed By: #### K APPA, SPE, MG SERUM, UPE RAND #### [facility] , #### PROCRERAT, SCAN CBC, CMP #### [address] Creatinine [Mass/volume] in Serum or PlasmaOrdered By: Tatiana Douglas on 07-18-2023 Creatinine [Mass/Vol] 0.85 mg/dL Normal 0.60-1.20 [facility] Comment on above: Performed By: #### K APPA, SPE, MG SERUM, UPE RAND #### [facility] , #### PROCRERAT, SCAN CBC, CMP #### [facility] [address] [place] [address] Creatinine [Mass/volume] in UrineOrdered By: Tatiana Douglas on 07-18-2023 Creatinine (U) [Mass/Vol] 85.0 mg/dL [facility] Comment on above: No reference range e stablished Erythrocyte distribution wid th [Ratio] by Automated countOrdered By: Tatiana Douglas on 07-18-2023 Erythrocyte distribution width (RBC) [Ratio] 13.4 % Normal 11.9-15.3 [facility] Comment on above: Performed By: #### K APPA, SPE, MG SERUM, UPE RAND #### [facility] , #### PROCRERAT, SCAN CBC, CMP #### [facility] [address] [place] [address] Erythrocytes [#/volume] in B lood by Automated countOrdered By: Tatiana Douglas on 07-18-2023 RBC (Bld) [#/Vol] 4.52 10*6/uL Normal 3.60-5.00 [facility] Comment on above: Performed By: #### K APPA, SPE, MG SERUM, UPE RAND #### [facility] , #### PROCRERAT, SCAN CBC, CMP #### [facility] [address] [place] [address] Free K+L LT Chains, Qn, Son 07-18-2023 Free [place] Light Chains, S 27.8 mg/L High 3.3-19.4 [facility] Comment on above: Performed By: #### K APPA, SPE, MG SERUM, UPE RAND #### [facility] , #### PROCRERAT, SCAN CBC, CMP #### [facility] [address] [place] [address] Free Lambda Light Chains, S 80.5 mg/L High 5.7-26.3 [facility] Comment on above: Performed By: #### K APPA, SPE, MG SERUM, UPE RAND #### [facility] , #### PROCRERAT, SCAN CBC, CMP #### [facility] [address] [place] [address] [place]/Lambda Ratio, S 0.35 Normal 0.26-1.65 [facility] Comment on above: Result Comment: Perf ormed at: - [facility] [address] [id number] Hide Washer: Kristian Castro PhD, Phone: [phone] PERFORMED BY: [address] [place] [address] PATHOLOGIST PYROTECHNIST DOMI SMITH M.D. Performed By: #### K APPA, SPE, MG SERUM, UPE RAND #### [facility] , #### PROCRERAT, SCAN CBC, CMP #### [address] Gamma globulin/Protein.total in 24 hour Urine by ElectrophoresisOrdered By: Tatiana Douglas on 07-18-2023 Gamma globulin Elph (24H U) [Mass fraction] 14.6 % . [facility] Glucose [Mass/volume] in Ser um or PlasmaOrdered By: Tatiana Douglas on 07-18-2023 Glucose [Mass/Vol] 75 mg/dL Normal 70-100 [facility] Comment on above: ADA recommended refe rence rangeRandom Glucose Reference Range is dependent on time and content of last meal. Glucose of more than 200 mg/dL in a nonstressed, ambulatory subject supports the diagnosis of Diabetes Mellitus. Result Comment: [place] om Glucose Reference Range is dependent on time and content of last meal. Glucose of more than 200 mg/dL in a nonstressed, ambulatory subject supports the diagnosis of Diabetes Mellitus. ADA recommended reference range Performed By: #### K MALIAA, SPE, MG SERUM, UPE RAND #### [facility] , #### PROCRERAT, SCAN CBC, CMP #### [facility] [address] [place] [address] [place] Hematocrit [Volume Fraction] of Blood by Automated countOrdered By: Tatiana Douglas on 07-18-2023 Hematocrit (Bld) [Volume fraction] 41.4 % Normal 34.0-46.4 [facility] Comment on above: Performed By: #### K APPA, SPE, MG SERUM, UPE RAND #### [facility] , #### PROCRERAT, SCAN CBC, CMP #### [facility] [address] [place] [address] [place] Hemoglobin [Mass/volume] in BloodOrdered By: Tatiana Douglas on 07-18-2023 Hemoglobin (Bld) [Mass/Vol] 13.7 g/dL Normal 11.8-15.4 [facility] Comment on above: Performed By: #### K APPA, SPE, MG SERUM, UPE RAND #### [facility] , #### PROCRERAT, SCAN CBC, CMP #### [facility] [address] [place] [address] [place] IgA [Mass/volume] in Serum o r PlasmaOrdered By: Tatiana Douglas on 07-18-2023 IgA [Mass/Vol] 78 mg/dL 64-422 [facility] IgG [Mass/volume] in Serum o r PlasmaOrdered By: Tatiana Douglas on 07-18-2023 IgG [Mass/Vol] 1223 mg/dL [phone] [facility] IgM [Mass/volume] in Serum o r PlasmaOrdered By: Tatiana Douglas on 07-18-2023 IgM [Mass/Vol] 39 mg/dL 26-217 [facility] Comment on above: Performed at: [place] [id number] Director: Kristian Castro PhD, Phone: [phone] Immunofixation,Serumon 07-17 Immunofixation, Serum Abnormal . [facility] Comment on above: Result Comment: Immu nofixation shows IgG monoclonal protein with lambda light chain specificity. Performed By: #### K APPA, SPE, MG SERUM, UPE RAND #### [facility] , #### PROCRERAT, SCAN CBC, CMP #### [facility] [address] [place] [address] [place] Immunoglobulin A, Serum 78 mg/dL Normal 64-422 [facility] Comment on above: Performed By: #### K APPA, SPE, MG SERUM, UPE RAND #### [facility] , #### PROCRERAT, SCAN CBC, CMP #### [facility] [address] [place] [address] [place] Immunoglobulin G 1223 mg/dL Normal 586-1602 [facility] Comment on above: Performed By: #### K APPA, SPE, MG SERUM, UPE RAND #### [facility] , #### PROCRERAT, SCAN CBC, CMP #### [facility] [address] Immunoglobulin M, Serum 39 mg/dL Normal 26-217 [facility] Comment on above: Result Comment: Perf ormed at: CB - [facility] [place] [address] [place], [place] [id number] Hide Washer: Kristian Castro PhD, Phone: [phone] Performed By: #### K APPA, SPE, MG SERUM, UPE RAND #### [facility] , #### PROCRERAT, SCAN CBC, CMP #### [facility] [address] Immunoglobulin light chains. kappa.free [Mass/volume] in SerumOrdered By: Tatiana Douglas on 07-18-2023 Immunoglobulin light chains.kappa.free (S) [Mass/Vol] 27.8 mg/L High 3.3-19.4 [facility] Immunoglobulin light chains. kappa.free/Immunoglobulin light chains.lambda.free [MassOrdered By: Tatiana Douglas on 07-18-2023 Immunoglobulin light chains.kappa.free/Immuno globulin light chains.lambda.free (S) [Mass ratio] 0.35 0.26-1.65 [facility] Comment on above: Performed at: [employer] [facility] [id number] [place], [place] [id number] Director: Kristian Castro PhD, Phone: [phone] Immunoglobulin light chains. lambda.free [Mass/volume] in Serum or PlasmaOrdered By: Tatiana Dougals on 07-18-2023 Immunoglobulin light chains.lambda.free [Mass/Vol] 80.5 mg/L High 5.7-26.3 [facility] Laboratory - Chemistry and C hemistry - challengeOrdered By: Tatiana Douglas on 07-18-2023 Protein [Mass/Vol] 1.0 g/dL High Not Observed [facility] Leukocytes [#/volume] correc annie for nucleated erythrocytes in Blood by Automated counOrdered By: Tatiana Douglas on 07-18-2023 WBC corrected for nucl RBC Auto (Bld) [#/Vol] 5.8 10*3/uL 3.8-11.6 [facility] Leukocytes [#/volume] in Blo od by Automated countOrdered By: Tatiana Douglas on 07-18-2023 WBC (Bld) [#/Vol] 5.8 10*3/uL Normal 3.8-11.6 [facility] Comment on above: Performed By: #### K APPA, SPE, MG SERUM, UPE RAND #### [facility] , #### PROCRERAT, SCAN CBC, CMP #### [facility] [address] [place] [address] Lymphocytes [#/volume] in Bl ood by Automated countOrdered By: Tatiana Douglas on 07-18-2023 Lymphocytes (Bld) [#/Vol] 1.1 10*3/uL Normal 1.00-4.8 [facility] Comment on above: Performed By: #### K APPA, SPE, MG SERUM, UPE RAND #### [facility] , #### PROCRERAT, SCAN CBC, CMP #### [facility] [address] [place] [address] [place] Lymphocytes/100 leukocytes i n Blood by Automated countOrdered By: Tatiana Douglas on 07-18-2023 Lymphocytes/100 WBC (Bld) 18.8 % Normal . [facility] Comment on above: Performed By: #### K APPA, SPE, MG SERUM, UPE RAND #### [facility] , #### PROCRERAT, SCAN CBC, CMP #### [facility] [address] [place] [address] [place] MCH [Entitic mass] by Automa annie countOrdered By: Tatiana Douglas on 07-18-2023 MCH (RBC) [Entitic mass] 30.3 pg Normal 24.7-34.3 [facility] Comment on above: Performed By: #### K APPA, SPE, MG SERUM, UPE RAND #### [facility] , #### PROCRERAT, SCAN CBC, CMP #### [facility] [address] [place] [address] MCHC Auto (RBC) [Mass/Vol]Or dered By: Tatiana Misael on 07-18-2023 MCHC (RBC) [Mass/Vol] 33.0 g/dL 32.0-35.0 [facility] MCV [Entitic volume] by Auto mated countOrdered By: Tatiana Misael on 07-18-2023 MCV (RBC) [Entitic vol] 91.8 fL Normal 80-100 [facility] Comment on above: Performed By: #### K APPA, SPE, MG SERUM, UPE RAND #### [facility] , #### PROCRERAT, SCAN CBC, CMP #### [facility] [address] [place] [address] Neutrophils [#/volume] in Bl ood by Automated countOrdered By: Tatiana Douglas on 07-18-2023 Neutrophils (Bld) [#/Vol] 4.0 10*3/uL Normal 1.8-7.7 [facility] Comment on above: Performed By: #### K APPA, SPE, MG SERUM, UPE RAND #### [facility] , #### PROCRERAT, SCAN CBC, CMP #### [facility] [address] [place] [address] No Panel InformationOrdered By: Tatiana Douglas on 07-18-2023 Estimated GFR (CKD-EPI) > 60.0 mL/Min [facility] Creatinine Clearance (Chem N/A [facility] Protein Electrophoresis Note See comment . [facility] Comment on above: Protein electrophore sis scan will follow via computer,mail, or banking pin adjuster delivery.Performed at: - [address] [id number] Director: Kristian Castro PhD, Phone: [phone] Serum Immunofixation See comment Abnormal . [facility] Comment on above: Immunofixation shows IgG monoclonal protein with lambdalight chain specificity. Urine Random Prot Electrophor Note See comment . [facility] Comment on above: Protein electrophore sis scan will follow via computer,mail, or banking pin adjuster delivery.Performed at: [facility] [id number] Director: Kristian Castro PhD, Phone: [phone] Nucleated erythrocytes [Pres ence] in Blood by Automated countOrdered By: Tatiana Douglas on 07-18-2023 Nucleated RBC Auto Ql (Bld) 0.0 /100{WBC} 0-0.5 [facility] Platelet adequacy [Presence] in Blood by Light microscopyOrdered By: Tatiana Douglas on 07-18-2023 Platelets LM Ql (Bld) Normal Normal [facility] Platelet mean volume [Entiti c volume] in Blood by Automated countOrdered By: Tatiana Douglas on 07-18-2023 Platelet mean volume (Bld) [Entitic vol] 9.4 fL Normal 6.3-10.7 [facility] Comment on above: Performed By: #### K APPA, SPE, MG SERUM, UPE RAND #### [facility] , #### PROCRERAT, SCAN CBC, CMP #### [facility] [address] [place] [address] Platelet morphology finding [Identifier] in BloodOrdered By: Tatiana Douglas on 07-18-2023 Platelet morphology finding Nom (Bld) N/A [facility] Platelets Large [Presence] i n Blood by Light microscopyOrdered By: Tatiana Douglas on 07-18-2023 Platelets Large LM Ql (Bld) Slight [facility] Platelets [#/volume] in Bloo d by Automated countOrdered By: Tatiana Douglas on 07-18-2023 Platelets (Bld) [#/Vol] 205 10*3/uL Normal 150-450 [facility] Comment on above: Performed By: #### K APPA, SPE, MG SERUM, UPE RAND #### [facility] , #### PROCRERAT, SCAN CBC, CMP #### [address] Poikilocytosis [Presence] in Blood by Light microscopyOrdered By: Tatiana Douglas on 07-18-2023 Poikilocytosis LM Ql (Bld) [facility] Polychromasia [Presence] in Blood by Light microscopyOrdered By: Tatiana Douglas on 07-18-2023 Polychromasia LM Ql (Bld) [facility] Potassium [Moles/volume] in Serum or PlasmaOrdered By: Tatiana Douglas on 07-18-2023 Potassium [Moles/Vol] 4.2 mmol/L Normal 3.5-5.1 [facility] Comment on above: Performed By: #### K APPA, SPE, MG SERUM, UPE RAND #### [facility] , #### PROCRERAT, SCAN CBC, CMP #### [address] Protein Creat Ratio Ur Rando mon 07-18-2023 Creatinine, Urine (Random) 85.0 mg/dL Normal [facility] Comment on above: Result Comment: No r eference range established Performed By: #### K APPA, SPE, MG SERUM, UPE RAND #### [facility] , #### PROCRERAT, SCAN CBC, CMP #### [address] Protein (U) [Mass/Vol] 7 mg/dL Normal 0-9 [facility] Comment on above: Performed By: #### K APPA, SPE, MG SERUM, UPE RAND #### [facility] , #### PROCRERAT, SCAN CBC, CMP #### [address] Urine Protein/Creatinine Ratio 82 mg/g{Cre} Normal 0-200 [facility] Comment on above: Result Comment: PERF ORMED BY: [place] [address] PATHOLOGIST PYROTECHNIST DOMI SMITH M.D. Performed By: #### K APPA, SPE, MG SERUM, UPE RAND #### [facility] , #### PROCRERAT, SCAN CBC, CMP #### [facility] [address] Protein Electro, Random Urin shantelle 07-18-2023 Albumin, Urine 23.6 % Normal . [facility] Comment on above: Performed By: #### K APPA, SPE, MG SERUM, UPE RAND ####[facility] ,#### PROCRERAT, SCAN CBC, CMP ####[place] [address] [place] Sbclx-6-Yszoxtoi, Urine 6.3 % Normal . [facility] Comment on above: Performed By: #### K APPA, SPE, MG SERUM, UPE RAND ####[facility] ,#### PROCRERAT, SCAN CBC, CMP ####[place] [address] [place] Efsra-6-Omewodyd, Urine 14.1 % Normal . [facility] Comment on above: Performed By: #### K APPA, SPE, MG SERUM, UPE RAND ####[facility] ,#### PROCRERAT, SCAN CBC, CMP ####[place] [address] [place] Beta Globulin, Urine 41.3 % Normal . [facility] Comment on above: Performed By: #### K APPA, SPE, MG SERUM, UPE RAND ####[facility] ,#### PROCRERAT, SCAN CBC, CMP ####[place] [address] [place] Gamma Globulin, Urine 14.6 % Normal . [facility] Comment on above: Performed By: #### K APPA, SPE, MG SERUM, UPE RAND ####[facility] ,#### PROCRERAT, SCAN CBC, CMP ####[address] M-David % Not Observed Normal Not Observed [facility] Comment on above: Performed By: #### K APPA, SPE, MG SERUM, UPE RAND ####[facility] ,#### PROCRERAT, SCAN CBC, CMP ####[address] Please Note: Normal . [facility] Comment on above: Result Comment: Prot ein electrophoresis scan will follow via computer, mail, or banking pin adjuster delivery. Performed at: [facility] [id number] Hide Washer: Kristian Castro PhD, Phone: [phone] PERFORMED BY: [place] [address] PATHOLOGIST PYROTECHNIST DOMI SMITH M.D. Performed By: #### K APPA, SPE, MG SERUM, UPE RAND ####[facility] ,#### PROCRERAT, SCAN CBC, CMP ####[address] Protein Electrophoresis, Ser umon 07-18-2023 Bvdlk-5-Fvswhfjm 0.2 g/dL Normal 0.0-0.4 [facility] Comment on above: Performed By: #### K APPA, SPE, MG SERUM, UPE RAND #### [facility] , #### PROCRERAT, SCAN CBC, CMP #### [address] Nvfzc-4-Vktksgkt 0.7 g/dL Normal 0.4-1.0 [facility] Comment on above: Performed By: #### K APPA, SPE, MG SERUM, UPE RAND #### [facility] , #### PROCRERAT, SCAN CBC, CMP #### [address] Beta Globulin 0.9 g/dL Normal 0.7-1.3 [facility] Comment on above: Performed By: #### K APPA, SPE, MG SERUM, UPE RAND #### [facility] , #### PROCRERAT, SCAN CBC, CMP #### [facility] [address] Gamma Globulin 1.2 g/dL Normal 0.4-1.8 [facility] Comment on above: Performed By: #### K APPA, SPE, MG SERUM, UPE RAND #### [facility] , #### PROCRERAT, SCAN CBC, CMP #### [facility] [address] M-Dvaid 1.0 g/dL High Not Observed [facility] Comment on above: Performed By: #### K APPA, SPE, MG SERUM, UPE RAND #### [facility] , #### PROCRERAT, SCAN CBC, CMP #### [facility] [address] [place] [address] SPE-Note Normal . [facility] Comment on above: Result Comment: Prot ein electrophoresis scan will follow via computer, mail, or banking pin adjuster delivery. Performed at: [facility] [id number] Hide Washer: Kristian Castro PhD, Phone: [phone] Performed By: #### K APPA, SPE, MG SERUM, UPE RAND #### [facility] , #### PROCRERAT, SCAN CBC, CMP #### [facility] [address] [place] [address] Protein [Mass/volume] in Ser um or PlasmaOrdered By: Tatiana Douglas on 07-18-2023 Protein [Mass/Vol] 7.1 g/dL Normal 6.4-8.9 [facility] Comment on above: Performed By: #### K APPA, SPE, MG SERUM, UPE RAND #### [facility] , #### PROCRERAT, SCAN CBC, CMP #### [facility] [address] [place] [address] [place] Protein [Mass/Vol] 6.9 g/dL Normal 6.0-8.5 [facility] Comment on above: Performed By: #### K APPA, SPE, MG SERUM, UPE RAND #### [facility] , #### PROCRERAT, SCAN CBC, CMP #### [facility] [address] Protein [Mass/volume] in Uri neOrdered By: Tatiana Douglas on 07-18-2023 Protein (U) [Mass/Vol] 6.3 mg/dL Normal Not Estab. [facility] Comment on above: Performed By: #### K APPA, SPE, MG SERUM, UPE RAND ####[facility] ,#### PROCRERAT, SCAN CBC, CMP ####[facility] Protein.monoclonal/Protein.t otal in 24 hour Urine by ElectrophoresisOrdered By: Tatiana Douglas on 07-18-2023 Protein.monoclonal Elph (24H U) [Mass fraction] Not observed % Not Observed [facility] RBC morphologyOrdered By: Am deacon Douglas on 07-18-2023 RBC morphology finding Nom (Bld) N/A [facility] Red blood cell stomatocyte d etectionOrdered By: Tatiana Douglas on 07-18-2023 Stomatocytes LM Ql (Bld) Slight [facility] Scan and CBCon 07-18-2023 Crenated RBC Slight Normal [facility] Comment on above: Performed By: #### K APPA, SPE, MG SERUM, UPE RAND #### [facility] , #### PROCRERAT, SCAN CBC, CMP #### [facility] [address] [place] [address] [place] Large Platelets Slight Normal [facility] Comment on above: Result Comment: PERF ORMED BY: [place] [address] PATHOLOGIST PYROTECHNIST DOMI SMITH M.D. Performed By: #### K APPA, SPE, MG SERUM, UPE RAND #### [facility] , #### PROCRERAT, SCAN CBC, CMP #### [address] Mean Corpuscular HGB Conc 33.0 g/dL Normal 32.0-35.0 [facility] Comment on above: Performed By: #### K APPA, SPE, MG SERUM, UPE RAND #### [facility] , #### PROCRERAT, SCAN CBC, CMP #### [address] NRBC% 0.0 /100{WBC} Normal 0-0.5 [facility] Comment on above: Performed By: #### K APPA, SPE, MG SERUM, UPE RAND #### [facility] , #### PROCRERAT, SCAN CBC, CMP #### [address] Platelet Estimate Normal Normal Normal [facility] Comment on above: Performed By: #### K APPA, SPE, MG SERUM, UPE RAND #### [facility] , #### PROCRERAT, SCAN CBC, CMP #### [facility] [address] [place] [address] Poikilocytosis Slight Normal [facility] Comment on above: Performed By: #### K APPA, SPE, MG SERUM, UPE RAND #### [facility] , #### PROCRERAT, SCAN CBC, CMP #### [address] Polychromasia Slight Normal [facility] Comment on above: Performed By: #### K APPA, SPE, MG SERUM, UPE RAND #### [facility] , #### PROCRERAT, SCAN CBC, CMP #### [facility] [address] [place] [address] Stomatocytes Slight Normal [facility] Comment on above: Performed By: #### K APPA, SPE, MG SERUM, UPE RAND #### [facility] , #### PROCRERAT, SCAN CBC, CMP #### [facility] [address] [place] [address] Serum globulin measurement ( mass/volume)Ordered By: Tatiana Douglas on 07-18-2023 Globulin (S) [Mass/Vol] 3.0 g/dL Normal 2.2-3.9 [facility] Comment on above: Performed By: #### K APPA, SPE, MG SERUM, UPE RAND #### [facility] , #### PROCRERAT, SCAN CBC, CMP #### [address] Serum globulin measurement b y calculation (mass/volume)Ordered By: Tatiana Douglas on 07-18-2023 Globulin (S) [Mass/Vol] 2.7 g/dL Normal [facility] Comment on above: Performed By: #### K APPA, SPE, MG SERUM, UPE RAND #### [facility] , #### PROCRERAT, SCAN CBC, CMP #### [address] Serum or plasma albumin/glob ulin mass ratioOrdered By: Tatiana Douglas on 07-18-2023 Albumin/Globulin [Mass ratio] 1.6 {ratio} Normal [facility] Comment on above: Performed By: #### K APPA, SPE, MG SERUM, UPE RAND #### [facility] , #### PROCRERAT, SCAN CBC, CMP #### [facility] [address] [place] [address] Albumin/Globulin [Mass ratio] 1.3 {ratio} Normal 0.7-1.7 [facility] Comment on above: Performed By: #### K APPA, SPE, MG SERUM, UPE RAND #### [facility] , #### PROCRERAT, SCAN CBC, CMP #### [facility] [address] [place] [address] Serum or plasma alpha 1 glob ulin measurement by electrophoresis (mass/volume)Ordered By: Tatiana Misael on 07-18-2023 Alpha 1 globulin Elph [Mass/Vol] 0.2 g/dL 0.0-0.4 [facility] Serum or plasma alpha 2 glob ulin measurement by electrophoresis (mass/volume)Ordered By: Tatiana Misael on 07-18-2023 Alpha 2 globulin Elph [Mass/Vol] 0.7 g/dL 0.4-1.0 [facility] Serum or plasma anion gap de terminationOrdered By: Tatiana Douglas on 07-18-2023 Anion gap [Moles/Vol] 6.8 mmol/L Normal 6.0-15.0 [facility] Comment on above: Performed By: #### K APPA, SPE, MG SERUM, UPE RAND #### [facility] , #### PROCRERAT, SCAN CBC, CMP #### [facility] [address] [place] [address] Serum or plasma beta globuli n measurement by electrophoresis (mass/volume)Ordered By: Tatiana Douglas on 07-18-2023 Beta globulin Elph [Mass/Vol] 0.9 g/dL 0.7-1.3 [facility] Serum or plasma gamma globul in measurement by electrophoresis (mass/volume)Ordered By: Tatiana Misael on 07-18-2023 Gamma globulin Elph [Mass/Vol] 1.2 g/dL 0.4-1.8 [facility] Sodium [Moles/volume] in Ser um or PlasmaOrdered By: Tatiana Douglas on 07-18-2023 Sodium [Moles/Vol] 140 mmol/L Normal 136-145 [facility] Comment on above: Performed By: #### K APPA, SPE, MG SERUM, UPE RAND #### [facility] , #### PROCRERAT, SCAN CBC, CMP #### [facility] [address] [place] [address] [place] Urea nitrogen [Mass/volume] in Serum or PlasmaOrdered By: Tatiana Douglas on 07-18-2023 Urea nitrogen [Mass/Vol] 32 mg/dL High 7-25 [facility] Comment on above: Performed By: #### K APPA, SPE, MG SERUM, UPE RAND #### [facility] , #### PROCRERAT, SCAN CBC, CMP #### [facility] [address] [place] [address] [place] Urine alpha 1 globulin/total protein by electrophoresisOrdered By: Tatiana Douglas on 07-18-2023 Alpha 1 globulin Elph (U) [Mass fraction] 6.3 % . [facility] Urine alpha 2 globulin/total protein ratio by electrophoresisOrdered By: Tatiana Douglas on 07-18-2023 Alpha 2 globulin Elph (U) [Mass fraction] 14.1 % . [facility] Urine beta globulin measurem ent by electrophoresis (mass/volume)Ordered By: Tatiana Douglas on 07-18-2023 Beta globulin Elph (U) [Mass/Vol] 41.3 % . [facility] Urine protein/creatinine rat ioOrdered By: Tatiana Douglas on 07-18-2023 Protein/Creatinine (U) [Ratio] 82 mg/g{Cre} 0-200 [facility] Consultation Noteon 06-18-19 Consultation Note [id number]#1.00TIFF Normal [facility] Consultation Noteon 03-16-19 Consultation Note [id number]#1.00TIFF Normal [facility] Consultation Noteon 03-06-19 Consultation Note [id number]#1.00TIFF Normal [facility] Operative Reporton 3 Operative Report [id number]#1.00TIFF Normal [facility] Consultation Noteon 01-10-20 Consultation Note [id number]#1.00TIFF Normal [facility] Consultation Noteon 12-28-19 Consultation Note [id number]#1.00TIFF Normal [facility] Family Medicine Office/Clini c Noteon 12-27-2022 Family [...] of clutter to prevent tripping and/or falling. [place] Advance Directives reviewed, see #3 below. Patient [...] Living Will and a durable power of divorce attorney for your health care. These two [...] selected your a (more content not included)... [facility] Comment on above: Result Comment: Elec tronically Signed By: Chel Parker\.br\Date and Time Signed: 12/27/22 12:49 EDT\.br\Electronically Co-Signed By: Abiodun Hodges\.br\Date and Time Co-Signed: 12/25/22 16:07 EDT Operative Reporton Operative Report [id number]#1.00TIFF [facility] Screenson 12-26-2022 Screens [id number]#1.00TIFF [facility] Ambulatory Visit Summaryon 1 Ambulatory Visit Summary [...] 1% cream) naproxen potassium chloride (Potassium Chloride (Voz-Wvzz-Lkn 10) 10 mEq oral tablet, extended release) [...] Follow-Up Appointments 2023 1:00 PM EDT Where: [facility] Patient Educationon 12-26-19 Patient Education Caregiving Fall Prevention in the [...] night-lights. ? Place frequently used items in fvae-nz-zmatu places. Lower the shelves around your home [...] the way. ? Do not use floor latvian or wax that makes floors slippery. If [...] include working with a physical therapist or instructor trainer canine service to improve your strength, balance, and endurance. Where to find more information ? Centers for Disease Control and Prevention, [place]: www.cdc.gov ? National [place] on Aging: www.joao.nih.gov Contact a health care [...] health ca (more content not included)... Normal [facility] Consultation Noteon 12-21-19 Consultation Note [id number]#1.00TIFF [facility] Consultation Noteon 12-20-19 Consultation Note [id number]#1.00TIFF [facility] Operative Reporton Operative Report [id number]#1.00CD:127 [facility] Consultation Noteon 11-16-19 Consultation Note [id number]#1.00CD:127 Normal [facility] Consultation Noteon 10-03-19 Consultation Note [id number]#1.00CD:127 Normal [facility] Outside Mammographyon 2022 Outside Mammography [id number]#1.00CD:127 Normal [facility] C3 and C4 COMPLEMENTon 06-22 Complement C3, Serum 149 mg/dL Normal 82-167 [facility] Comment on above: Performed By: #### C ROMEO #### [facility] [address] [place] [address] Dr. Yaneth Walton Complement C4, Serum 31 mg/dL Normal 12-38 [facility] Comment on above: Performed By: #### C ROMEO #### [facility] [address] [place] [address] Dr. Yaneth Walton CBC AUTO DIFFon 06-21-2022 BASO # 0.0 103/ul Normal 0.0-0.1 [facility] Comment on above: Performed By: #### C BC #### [facility] [address] [place] [address] Dr. Yaneth Walton Basophils/100 WBC (Bld) 0.6 % Normal 0.2-2.0 [facility] Comment on above: Performed By: #### C BC #### [facility] [address] [place] [address] Dr. Yaneth Walton EO # 0.1 103/ul Normal 0.0-0.7 [facility] Comment on above: Performed By: #### C BC #### [facility] [address] [place] [address] Dr. Yaneth Walton Eosinophils/100 WBC (Bld) 2.8 % Normal 0.9-7.0 [facility] Comment on above: Performed By: #### C BC #### [facility] [address] [place] [address] Dr. Yaneth Walton Erythrocyte distribution width (RBC) [Ratio] 11.9 % Normal 11.0-15.0 [facility] Comment on above: Performed By: #### C BC #### [facility] [address] [place] [address] Dr. Yaneth Walton Hematocrit (Bld) [Volume fraction] 40.3 % Normal 36.0-48.0 [facility] Comment on above: Performed By: #### C BC #### [facility] [address] [place] [address] Dr. Yaneth Walton Hemoglobin (Bld) [Mass/Vol] 13.3 g/dL Normal 12.0-16.0 [facility] Comment on above: Performed By: #### C BC #### [facility] [address] [place] [address] Dr. Yaneth Walton IG # 0.01 10e3/ul Normal 0.00-0.03 [facility] Comment on above: Performed By: #### C BC #### [facility] [address] [place] [address] Dr. aYneth Walton IG % 0.2 % Normal 0.0-0.5 [facility] Comment on above: Performed By: #### C BC #### [facility] [address] [place] [address] Dr. Yaneth Walton LYMPH # 1.0 103/ul Critically low 1.2-3.8 [facility] Comment on above: Performed By: #### C BC #### [facility] [address] [place] [address] Dr. Yaneth Walton Lymphocytes/100 WBC (Bld) 20.9 % Normal 20.5-60.0 [facility] Comment on above: Performed By: #### C BC #### [facility] [address] [place] [address] Dr. Yaneth Walton MANUAL DIFF REQ NO Normal [facility] Comment on above: Performed By: #### C BC #### [facility] [address] [place] [address] Dr. Yaneth Walton MCH (RBC) [Entitic mass] 32.0 pg Normal 26.7-34.0 [facility] Comment on above: Performed By: #### C BC #### [facility] [address] [address] [address] Yaneth Walton MCHC (RBC) [Mass/Vol] 33.0 g/dL Normal 29.9-35.2 [facility] Comment on above: Performed By: #### C BC #### [facility] [address] [address] [address] Yaneth Walton MCV (RBC) [Entitic vol] 97.1 fL Normal 81.0-99.0 [facility] Comment on above: Performed By: #### C BC #### [facility] [address] [place] [address] Dr. Yaneth Walton MONO # 0.4 103/ul Normal 0.3-0.8 [facility] Comment on above: Performed By: #### C BC #### [facility] [address] [place] [address] Dr. Yaneth Walton Monocytes/100 WBC (Bld) 8.4 % Normal 1.7-12.0 [facility] Comment on above: Performed By: #### C BC #### [facility] [address] [place] [address] Dr. Yaneth Walton NEUT # 3.1 103/ul Normal 1.4-6.5 [facility] Comment on above: Performed By: #### C BC #### [facility] [address] [place] [address] Dr. Yaneth Walton Neutrophils/100 WBC (Bld) 67.1 % Normal 43.0-75.0 [facility] Comment on above: Performed By: #### C BC #### [facility] [address] [place] [address] Dr. Yaneth Walton Platelet mean volume (Bld) [Entitic vol] 10.7 fL Normal 9.5-13.5 [facility] Comment on above: Performed By: #### C BC #### [facility] [address] [place] [address] Dr. Yaneth Walton PLT 213 103/ul Normal 150-450 [facility] Comment on above: Performed By: #### C BC #### [facility] [address] [address] [address] Yaneth Walton RBC 4.15 106/ul Critically low 4.20-5.40 [facility] Comment on above: Performed By: #### C BC #### [facility] [address] [place] [address] Dr. Yaneth Walton WBC 4.7 103/ul Normal 4.0-11.0 [facility] Comment on above: Performed By: #### C BC #### [facility] [address] [place] [address] Dr. Yaneth Walton CREATININEon 06-21-2022 Creatinine [Mass/Vol] 0.82 mg/dL Normal 0.55-1.02 [facility] Comment on above: Performed By: #### C ROMEO #### [facility] [address] [place] [address] Dr. Yaneth Walton EGFR-AF [place]ORE[place] >60 Normal >=60 [facility] Comment on above: Performed By: #### C ROMEO #### [facility] [address] [place] [address] Dr. Yaneth Walton EGFR-NON AF [place] >60 Normal >=60 [facility] Comment on above: Performed By: #### C ROMEO #### [facility] [address] [place] [address] Dr. Yaneth Walton SED RATE WESTERGRENon 2022 SED RATE 7 mm/hr Normal <=30 [facility] Comment on above: Performed By: #### C ROMEO #### [facility] [address] [place] [address] Dr. Yaneth Walton UA RANDOM W/MICROSCOPICon BACTERIA TRACE Abnormal NONE SEEN [facility] Comment on above: Performed By: #### C ROMEO #### [facility] [address] [place] [address] Dr. Yaneth Walton Bilirubin Ql (U) Negative Normal NEGATIVE [facility] Comment on above: Performed By: #### C ROMEO #### [facility] [address] [place] [address] Dr. Yaneth Walton CAST NONE SEEN Normal NONE SEEN [facility] Comment on above: Performed By: #### C ROMEO #### [facility] [address] [place] [address] Dr. Yaneth Walton Clarity (U) CLEAR Normal CLEAR [facility] Comment on above: Performed By: #### C ROMEO #### [facility] [address] [place] [address] Dr. Yaneth Walton Color (U) LT. YELLOW Normal YELLOW [facility] Comment on above: Performed By: #### C ROMEO #### [facility] [address] [place] [address] Dr. Yaneth Walton Crystals LM Nom (Urine sed) NONE SEEN Normal NONE SEEN [facility] Comment on above: Performed By: #### C ROMEO #### [facility] [address] [place] [address] Dr. Yaneth Walton Epithelial cells LM Ql (Urine sed) RARE Normal NONE SEEN /RARE [facility] Comment on above: Performed By: #### C ROMEO #### [facility] [address] [place] [address] Dr. Yaneth Walton Glucose Ql (U) Negative Normal NEGATIVE [facility] Comment on above: Performed By: #### C ROMEO #### [facility] [address] [place] [address] Dr. Yaneth Walton Hemoglobin Ql (U) Negative Normal NEGATIVE [facility] Comment on above: Performed By: #### C ROMEO #### [facility] [address] [place] [address] Dr. Yaneth Walton Ketones Ql (U) Negative Normal NEGATIVE [facility] Comment on above: Performed By: #### C ROMEO #### [facility] [address] [place] [address] Dr. Yaneth Walton LEUKOCYTES LARGE Abnormal NEGATIVE [facility] Comment on above: Performed By: #### C ROMEO #### [facility] [address] [place] [address] Dr. Yaneth Walton MUCOUS NONE SEEN Normal NONE SEEN [facility] Comment on above: Performed By: #### C ROMEO #### [facility] [address] [place] [address] Dr. Yaneth Walton Nitrite Ql (U) Negative Normal NEGATIVE [facility] Comment on above: Performed By: #### C ROMEO #### [facility] [address] [place] [address] Dr. Yaneth Walton pH (U) 6.0 [pH] Normal 5-9 [facility] Comment on above: Performed By: #### C ROMEO #### [facility] [address] [place] [address] Dr. Yaneth Walton RBC 0-2 Normal 0-2 [facility] Comment on above: Performed By: #### C ROMEO #### [facility] [address] [place] [address] Dr. Yaneth Walton SPEC GRAVITY <=1.005 Abnormal 1.005-<=1. 025 [facility] Comment on above: Performed By: #### C ROMEO #### [facility] [address] [place] [address] Dr. Yaneth Walton UA PROTEIN Negative Normal NEGATIVE/ TRACE [facility] Comment on above: Performed By: #### C ROMEO #### [facility] [address] [place] [address] Dr. Yaneth Walton Urobilinogen Qn (U) 0.2 {Ruth Ann'U}/dL Normal 0.2 - 1. 0 [facility] Comment on above: Performed By: #### C ROMEO #### [facility] [address] [place] [address] Dr. Yaneth Walton WBC 10-20 Abnormal NONE SEEN [facility] Comment on above: Performed By: #### C ROMEO #### [facility] [address] [place] [address] Dr. Yaneth Walton MRI LSPINE WO CONon [...] by: HEATHER BECKER Date: 2022-02-10 14:50 Normal [facility] XR KNEE SONY 4V or [...] Date: 2022-02-03 17:51 Normal [facility] XR LSPINE MIN 4 VIEWSon 12-0 XR [...] by: HEATHER BECKER Date: 2022-02-03 17:54 Normal [facility] C3 and C4 COMPLEMENTon 12-22 Complement C3, Serum 155 mg/dL Normal 82-167 [facility] Comment on above: Performed By: #### C SUITE #### [facility] [address] [place] [address] Dr. Yaneth Walton Complement C4, Serum 35 mg/dL Normal 12-38 [facility] Comment on above: Performed By: #### C SUITE #### [facility] [address] [place] [address] Dr. Yaneth Walton CBC AUTO DIFFon 12-21-2021 BASO # 0.1 103/ul Normal 0.0-0.1 [facility] Comment on above: Performed By: #### C BC #### [facility] [address] [place] [address] Dr. Yaneth Walton Basophils/100 WBC (Bld) 0.9 % Normal 0.2-2.0 [facility] Comment on above: Performed By: #### C BC #### [facility] [address] [place] [address] Dr. Yaneth Walton EO # 0.1 103/ul Normal 0.0-0.7 [facility] Comment on above: Performed By: #### C BC #### [facility] [address] [place] [address] Dr. Yaneth Walton Eosinophils/100 WBC (Bld) 2.2 % Normal 0.9-7.0 [facility] Comment on above: Performed By: #### C BC #### [facility] [address] [place] [address] Dr. Yaneth Walton Erythrocyte distribution width (RBC) [Ratio] 13.0 % Normal 11.0-15.0 [facility] Comment on above: Performed By: #### C BC #### [facility] [address] [place] [address] Dr. Yaneth Walton Hematocrit (Bld) [Volume fraction] 42.0 % Normal 36.0-48.0 [facility] Comment on above: Performed By: #### C BC #### [facility] [address] [place] [address] Dr. Yaneth Walton Hemoglobin (Bld) [Mass/Vol] 13.4 g/dL Normal 12.0-16.0 [facility] Comment on above: Performed By: #### C BC #### [facility] [address] [place] [address] Dr. Yaneth Walton IG # 0.01 10e3/ul Normal 0.00-0.03 [facility] Comment on above: Performed By: #### C BC #### [facility] [address] [place] [address] Dr. Yaneth Walton IG % 0.2 % Normal 0.0-0.5 [facility] Comment on above: Performed By: #### C BC #### [facility] [address] [place] [address] Dr. Yaneth Walton LYMPH # 1.0 103/ul Critically low 1.2-3.8 [facility] Comment on above: Performed By: #### C BC #### [facility] [address] [place] [address] Dr. Yaneth Walton Lymphocytes/100 WBC (Bld) 18.0 % Critically low 20.5-60.0 [facility] Comment on above: Performed By: #### C BC #### [facility] [address] [place] [address] Dr. Yaneth Walton MANUAL DIFF REQ NO Normal [facility] Comment on above: Performed By: #### C BC #### [facility] [address] [place] [address] Dr. Yaneth Walton MCH (RBC) [Entitic mass] 30.5 pg Normal 26.7-34.0 [facility] Comment on above: Performed By: #### C BC #### [facility] [address] [place] [address] Dr. Yaneth Walton MCHC (RBC) [Mass/Vol] 31.9 g/dL Normal 29.9-35.2 [facility] Comment on above: Performed By: #### C BC #### [facility] [address] [place] [address] Dr. Yaneth Walton MCV (RBC) [Entitic vol] 95.7 fL Normal 81.0-99.0 [facility] Comment on above: Performed By: #### C BC #### [facility] [address] [place] [address] Dr. Yaneth Walton MONO # 0.5 103/ul Normal 0.3-0.8 [facility] Comment on above: Performed By: #### C BC #### [facility] [address] [place] [address] Dr. Yaneth Walton Monocytes/100 WBC (Bld) 8.7 % Normal 1.7-12.0 [facility] Comment on above: Performed By: #### C BC #### [facility] [address] [place] [address] Dr. Yaneth Walton NEUT # 3.8 103/ul Normal 1.4-6.5 [facility] Comment on above: Performed By: #### C BC #### [facility] [address] [place] [address] Dr. Yaneth Walton Neutrophils/100 WBC (Bld) 70.0 % Normal 43.0-75.0 [facility] Comment on above: Performed By: #### C BC #### [facility] [address] [place] [address] Dr. Yaneth Walton Platelet mean volume (Bld) [Entitic vol] 10.8 fL Normal 9.5-13.5 [facility] Comment on above: Performed By: #### C BC #### [facility] [address] [place] [address] Dr. Yaneth Walton PLT 213 103/ul Normal 150-450 [facility] Comment on above: Performed By: #### C BC #### [facility] [address] [place] [address] Dr. Yaneth Walton RBC 4.39 106/ul Normal 4.20-5.40 [facility] Comment on above: Performed By: #### C BC #### [facility] [address] [place] [address] Dr. Yaneth Walton WBC 5.4 103/ul Normal 4.0-11.0 [facility] Comment on above: Performed By: #### C BC #### [facility] [address] [place] [address] Dr. Yaneth Walton CREATININEon 12-21-2021 Creatinine [Mass/Vol] 0.87 mg/dL Normal 0.55-1.02 [facility] Comment on above: Performed By: #### C ROMEO #### [facility] [address] [place] [address] Dr. Yaneth Walton EGFR-AF [place]ORE[place] >60 Normal >=60 [facility] Comment on above: Performed By: #### C ROMEO #### [facility] [address] [place] [address] Dr. Yaneth Walton EGFR-NON AF [place] >60 Normal >=60 [facility] Comment on above: Performed By: #### C ROMEO #### [facility] [address] [place] [address] Dr. Yaneth Walton [facility] SED RATE 10 mm/hr Normal <=30 [facility] Comment on above: Performed By: #### S EDR #### [facility] [address] [place] [address] Dr. Yaneth Walton UA RANDOM W/MICROSCOPICon BACTERIA NONE SEEN Normal NONE SEEN [facility] Comment on above: Performed By: #### C ROMEO #### [facility] [address] [place] [address] Dr. Yaneth Walton Bilirubin Ql (U) Negative Normal NEGATIVE [facility] Comment on above: Performed By: #### C ROMEO #### [facility] [address] [place] [address] Dr. Yaneth Walton CAST NONE SEEN Normal NONE SEEN [facility] Comment on above: Performed By: #### C ROMEO #### [facility] [address] [place] [address] Dr. Yaneth Walton Clarity (U) CLEAR Normal CLEAR [facility] Comment on above: Performed By: #### C ROMEO #### [facility] [address] [place] [address] Dr. Yaneth Walton Color (U) LT. YELLOW Normal YELLOW [facility] Comment on above: Performed By: #### C ROMEO #### [facility] [address] [place] [address] Dr. Yaneth Walton Crystals LM Nom (Urine sed) NONE SEEN Normal NONE SEEN [facility] Comment on above: Performed By: #### C ROMEO #### [facility] [address] [place] [address] Dr. Yaneth Walton Epithelial cells LM Ql (Urine sed) FEW Abnormal NONE SEEN /RARE [facility] Comment on above: Performed By: #### C ROMEO #### [facility] [address] [place] [address] Dr. Yaneth Walton Glucose Ql (U) Negative Normal NEGATIVE [facility] Comment on above: Performed By: #### C ROMEO #### [facility] [address] [place] [address] Dr. Yaneth Walton Hemoglobin Ql (U) Negative Normal NEGATIVE [facility] Comment on above: Performed By: #### C ROMEO #### [facility] [address] [place] [address] Dr. Yaneth Walton Ketones Ql (U) Negative Normal NEGATIVE [facility] Comment on above: Performed By: #### C ROMEO #### [facility] [address] [place] [address] Dr. Yaneth Walton LEUKOCYTES TRACE Abnormal NEGATIVE [facility] Comment on above: Performed By: #### C ROMEO #### [facility] [address] [place] [address] Dr. Yaneth Walton MUCOUS NONE SEEN Normal NONE SEEN [facility] Comment on above: Performed By: #### C ROMEO #### [facility] [address] [place] [address] Dr. Yaneth Walton Nitrite Ql (U) Negative Normal NEGATIVE [facility] Comment on above: Performed By: #### C ROMEO #### [facility] [address] [place] [address] Dr. Yaneth Walton pH (U) 6.0 [pH] Normal 5-9 [facility] Comment on above: Performed By: #### C ROMEO #### [facility] [address] [place] [address] Dr. Yaneth Walton RBC NONE SEEN Abnormal 0-2 [facility] Comment on above: Performed By: #### C ROMEO #### [facility] [address] [place] [address] Dr. Yaneth Walton SPEC GRAVITY 1.010 Normal 1.005-<=1. 025 [facility] Comment on above: Performed By: #### C ROMEO #### [facility] [address] [place] [address] Dr. Ynaeth Walton UA PROTEIN Negative Normal NEGATIVE/ TRACE [facility] Comment on above: Performed By: #### C ROMEO #### [facility] [address] [place] [address] Dr. Yaneth Walton Urobilinogen Qn (U) 0.2 {Ruth Ann'U}/dL Normal 0.2 - 1. 0 [facility] Comment on above: Performed By: #### C ROMEO #### [facility] [address] [place] [address] Dr. Yaneth Walton WBC 0-2 Abnormal NONE SEEN [facility] Comment on above: Performed By: #### C ROMEO #### [facility] [address] [place] [address] Dr. Yaneth Walton PTH INTACTon 08-20-2021 PTH, Intact 44 pg/mL Normal 15-65 [facility] Comment on above: Performed By: #### B ETA2M #### [facility] [address] [place] [address] Dr. Yaneth Walton FREE T3on 08-19-2021 FREE T3 2.44 pg/mlL Normal 2.18-3.98 [facility] Comment on above: Performed By: #### B ETA2M #### [facility] [address] [place] [address] Dr. Yaneth Walton FREE T4on 08-19-2021 Free T4 [Mass/Vol] 1.11 ng/dL Normal 0.76-1.46 [facility] Comment on above: Performed By: #### B ETA2M #### [facility] [address] [place] [address] Dr. Yaneth Walton LIPID PROFILEon 08-19-2021 CHOL-HDL RATIO NORM SEE BELOW Normal [facility] Comment on above: Result Comment: 3.3 - 4.4 LOW RISK 4.4 - 7.1 AVERAGE RISK 7.1 - 11.0 MODERATE RISK >11.0 HIGH RISK Performed By: #### C ROMEO #### [facility] [address] [place] [address] Dr. Yaneth Walton Cholesterol [Mass/Vol] 180 mg/dL Normal <=200 [facility] Comment on above: Performed By: #### C ROMEO #### [facility] [address] [place] [address] Dr. Yaneth Walton Cholesterol in HDL [Mass/Vol] 76 mg/dL Critically high 40-60 [facility] Comment on above: Performed By: #### C ROMEO #### [facility] [address] [place] [address] Dr. Yaneth Walton Cholesterol in LDL [Mass/Vol] 92.6 mg/dL Normal [facility] Comment on above: Performed By: #### C ROMEO #### [facility] [address] [place] [address] Dr. Yaneth Walton Cholesterol.total/Choles terol in HDL [Mass ratio] 2.4 {ratio} Normal [facility] Comment on above: Performed By: #### C ROMEO #### [facility] [address] [place] [address] [address] Yaneth Walton HDL NORMAL > or = 60 mg/dl - LO W CARDIOVASCULAR RISK <40 mg/dl - HIGH CARDIOVASCULAR RISK Normal [facility] Comment on above: Performed By: #### C ROMEO #### [facility] [address] [address] [address] Yaneth Walton LDL CALC NORMAL SEE BELOW Normal [facility] Comment on above: Result Comment: <100 mg/dl OPTIMAL 100 - 129 mg/dl NEAR OR ABOVE OPTIMAL 130 - 159 mg/dl BORDERLINE HIGH 160 - 189 mg/dl HIGH >190 mg/dl VERY HIGH Performed By: #### C ROMEO #### [facility] [address] [place] [address] Dr. Yaneth Walton Triglyceride [Mass/Vol] 57 mg/dL Normal <=150 T [facility] Comment on above: Performed By: #### C ROMEO #### [facility] [address] [address] [address] Yaneth Walton VLDL CALC 11.4 mg/dL Normal [facility] Comment on above: Performed By: #### C ROMEO #### [facility] [address] [place] [address] Dr. Yaneth Walton MG MAMM SCREEN 3D SONY CADon 08-19-2021 MG MAMM SCREEN 3D SONY CAD Patient: MISTY PEREZ Exam Date: 08/19/2021 : 1950 Gender:F Ordering : DR CAROL KENNEDY . Admission #: [id number] Family : Order #: [id number] CLICK HERE TO VIEW EXAM RADIOLOGY REPORT [...] at age 71. LOCATION: [facility] BREAST COMPOSITION: Heterogeneously dense,which may obscure small [...] Acosta M.D. on 08/19/2021 at 12:07 Normal [facility] TSHon 08-19-2021 TSH 0.181 uIU/mL Critically low 0.358-3.74 0 [facility] Comment on above: Performed By: #### B ETA2M #### [facility] [address] [address] [address] Yaneth Walton VITAMIN D 25 OHon 08-19-2021 VIT D 25-OH 51.8 ng/mL Normal [facility] Comment on above: Performed By: #### B ETA2M #### [facility] [address] [place], [place] [address] Dr. Yaneth Walton VIT D RANGES SEE BELOW Normal [facility] Comment on above: Result Comment: <20 ng/mL Vit D deficient 20 - <30 ng/mL Vit D insufficient 30 - 100 ng/mL Vit D sufficient >100 ng/mL Potential Toxicity Performed By: #### B ETA2M #### [facility] [address] [place], [place] [address] Dr. Yaneth Walton [facility] Surgical Pathology Depar tmenton 08-04-2021 [facility] Surgical Pathology Department Name MISTY PEREZ Pathologist: TONYA CARRERA DMD Date of Procedure: 08/04/2021 Date Received: 08/08/2021 Date Reported 08/12/2021 Submitting Physician: LIZETH LAYTON DDS Location: [facility] Other External # FINAL DIAGNOSIS A. ATTACHED GINGIVA OF TEETH #[id number], EXCISION: -- MILD EPITHELIAL DYSPLASIA (MULTIPLE LEVELS EXAMINED) ICD-10/CPT: K13.21/53307 Electronically Signed Out By TONYA CARRERA DMD/ALFONSO By the signature on this report, the individual or group listed as making the Final Interpretation/Diagnosis certifies that they have reviewed this case. Diagnostic interpretation performed at [address] [place] [address] Microscopic Description: The sections show a fragment [...] entirely submitted in one cassette. RCC rcc/08/08/2021 [facility] Department of Pathology [address] [place] [address] Normal [facility] Comment on above: Performed By: #### U [facility] #### [facility] Surgical Pathology Department [address] [place], [place] [id number] IMMUNOFIXATION (MG), SERUMo n 07-11-2021 IMMUNOFIXATION RESULT Comment Abnormal [facility] Comment on above: Result Comment: Immu nofixation shows IgG monoclonal protein with lambda light chain specificity. Performed By: #### C ROMEO #### [facility] [address] [address] [address] Yaneth Walton Immunoglobulin A, Qn, Serum 113 mg/dL Normal 87-352 [facility] Comment on above: Performed By: #### C ROMEO #### [facility] [address] [address] [address] Yaneth Walton Immunoglobulin G, Qn, Serum 1031 mg/dL Normal 586-1602 [facility] Comment on above: Performed By: #### C ROMEO #### [facility] [address] [address] [address] Yaneth Walton Immunoglobulin M, Qn, Serum 42 mg/dL Normal 26-217 [facility] Comment on above: Performed By: #### C ROMEO #### [facility] [address] [place] [address] Dr. Yaneth Walton BETA-2 MICROGLOBINon 022 Beta-2 Microglobulin, Serum 2.2 mg/L Normal 0.6-2.4 [facility] Comment on above: Result Comment: Siem ens Zvooqulite 2000 Immunochemiluminometric assay (ICMA) . Values obtained with different assay methods or kits cannot be used interchangeably. Results cannot be interpreted as absolute evidence of the presence or absence of malignant disease. Performed By: #### B ETA2M #### [facility] [address] [place] [address] Dr. Yaneth Walton FREE LIGHT CHAINS PLUS RATIO on 07-09-2021 Free [place] Lt Chains,S 34.7 mg/L Critically high 3.3-19.4 [facility] Comment on above: Performed By: #### F REELIT #### [facility] [address] [place] [address] Dr. Yaneth Walton Free Lambda Lt Chains,S 50.1 mg/L Critically high 5.7-26. 3 [facility] Comment on above: Performed By: #### F REELIT #### [facility] [address] [place] [address] Dr. Yaneth Walton [place]/Lambda Ratio, S 0.69 Normal 0.26-1.65 [facility] Comment on above: Performed By: #### F REELIT #### [facility] [address] [place] [address] Dr. Yaneth Walton IMMUNOGLOBULINS IGA/IGM/IGG QUANTITATIVEon 07-08-2021 Immunoglobulin A, Qn, Serum 111 mg/dL Normal 87-352 [facility] Comment on above: Performed By: #### I MMUNGL #### [facility] [address] [place] [address] Dr. Yaneth Walton Immunoglobulin G, Qn, Serum 1037 mg/dL Normal [id number] [facility] Comment on above: Performed By: #### I MMUNGL #### [facility] [address] [place] [address] Dr. Yaneth Walton Immunoglobulin M, Qn, Serum 44 mg/dL Normal 26-217 [facility] Comment on above: Performed By: #### I MMUNGL #### [facility] [facility] [address] [place] [address] Dr. Yaneth Walton CBC AUTO DIFFon 07-07-2021 BASO # 0.0 103/ul Normal 0.0-0.1 [facility] Comment on above: Performed By: #### C BC #### [facility] [address] [place] [address] Dr. Yaneth Walton Basophils/100 WBC (Bld) 0.7 % Normal 0.2-2.0 [facility] Comment on above: Performed By: #### C BC #### [facility] [address] [place] [address] Dr. Yaneth Walton EO # 0.2 103/ul Normal 0.0-0.7 [facility] Comment on above: Performed By: #### C BC #### [facility] [address] [place] [address] Dr. Yaneth Walton Eosinophils/100 WBC (Bld) 2.9 % Normal 0.9-7.0 [facility] Comment on above: Performed By: #### C BC #### [facility] [address] [place] [address] Dr. Yaneth Walton Erythrocyte distribution width (RBC) [Ratio] 12.9 % Normal 11.0-15.0 [facility] Comment on above: Performed By: #### C BC #### [facility] [address] [place] [address] Dr. Yaneth Walton Hematocrit (Bld) [Volume fraction] 43.1 % Normal 36.0-48.0 [facility] Comment on above: Performed By: #### C BC #### [facility] [address] [place] [address] Dr. Yaneth Walton Hemoglobin (Bld) [Mass/Vol] 13.8 g/dL Normal 12.0-16.0 [facility] Comment on above: Performed By: #### C BC #### [facility] [address] [place] [address] Dr. Yaneth Walton IG # 0.02 10e3/ul Normal 0.00-0.03 [facility] Comment on above: Performed By: #### C BC #### [facility] [address] [place] [address] Dr. Yaneth Walton IG % 0.4 % Normal 0.0-0.5 [facility] Comment on above: Performed By: #### C BC #### [facility] [address] [place] [address] Dr. Yaneth Walton LYMPH # 1.3 103/ul Normal 1.2-3.8 [facility] Comment on above: Performed By: #### C BC #### [facility] [address] [place] [address] Dr. Yaneth Walton Lymphocytes/100 WBC (Bld) 22.9 % Normal 20.5-60.0 [facility] Comment on above: Performed By: #### C BC #### [facility] [address] [place] [address] Dr. Yaneth Walton MANUAL DIFF REQ NO Normal [facility] Comment on above: Performed By: #### C BC #### [facility] [address] [place] [address] Dr. Yaneth Walton MCH (RBC) [Entitic mass] 30.3 pg Normal 26.7-34.0 [facility] Comment on above: Performed By: #### C BC #### [facility] [address] [place] [address] Dr. Yaneth Walton MCHC (RBC) [Mass/Vol] 32.0 g/dL Normal 29.9-35.2 [facility] Comment on above: Performed By: #### C BC #### [facility] [address] [address] [address] Yaneth Walton MCV (RBC) [Entitic vol] 94.5 fL Normal 81.0-99.0 [facility] Comment on above: Performed By: #### C BC #### [facility] [address] [address] [address] Yaneth Walton MONO # 0.5 103/ul Normal 0.3-0.8 [facility] Comment on above: Performed By: #### C BC #### [facility] [address] [address] [address] Yaneth Walton Monocytes/100 WBC (Bld) 8.7 % Normal 1.7-12.0 [facility] Comment on above: Performed By: #### C BC #### [facility] [address] [address] [address] Yaneth Walton NEUT # 3.5 103/ul Normal 1.4-6.5 [facility] Comment on above: Performed By: #### C BC #### [facility] [address] [address] [address] Yaneth Walotn Neutrophils/100 WBC (Bld) 64.4 % Normal 43.0-75.0 [facility] Comment on above: Performed By: #### C BC #### [facility] [address] [address] [address] Yaneth Walton Platelet mean volume (Bld) [Entitic vol] 11.0 fL Normal 9.5-13.5 [facility] Comment on above: Performed By: #### C BC #### [facility] [address] [address] [address] Yaneth Walton PLT 206 103/ul Normal 150-450 [facility] Comment on above: Performed By: #### C BC #### [facility] [address] [address] [address] Yaneth Walton RBC 4.56 106/ul Normal 4.20-5.40 [facility] Comment on above: Performed By: #### C BC #### [facility] [address] [address] [address] Yaneth Walton WBC 5.5 103/ul Normal 4.0-11.0 [facility] Comment on above: Performed By: #### C BC #### [facility] [address] [place] [address] Dr. Yaneth Walton PROF 14(COMP METB)on 022 Albumin [Mass/Vol] 3.7 g/dL Normal 3.4-5.0 [facility] Comment on above: Performed By: #### B ETA2M #### [facility] [address] [place] [address] Dr. Yaneth Walton Albumin/Globulin [Mass ratio] 1.0 {ratio} Normal [facility] Comment on above: Performed By: #### B ETA2M #### [facility] [address] [place] [address] Dr. Yaneth Walton ALP [Catalytic activity/Vol] 103 U/L Normal 46-116 [facility] Comment on above: Performed By: #### B ETA2M #### [facility] [address] [place] [address] Dr. Yaneth Walton ALT [Catalytic activity/Vol] 28 U/L Normal 14-59 [facility] Comment on above: Performed By: #### B ETA2M #### [facility] [address] [place] [address] Dr. Yaneth Walton Anion gap [Moles/Vol] 12.0 mmol/L Normal [facility] Comment on above: Performed By: #### B ETA2M #### [facility] [address] [place] [address] Dr. Yaneth Walton AST [Catalytic activity/Vol] 26 U/L Normal 15-37 [facility] Comment on above: Performed By: #### B ETA2M #### [facility] [address] [place] [address] Dr. Yaneth Walton Bilirubin [Mass/Vol] 0.7 mg/dL Normal 0.2-1.0 [facility] Comment on above: Performed By: #### B ETA2M #### [facility] [address] [place] [address] Dr. Yaneth Walton Calcium [Mass/Vol] 8.6 mg/dL Normal 8.5-10.1 [facility] Comment on above: Performed By: #### B ETA2M #### [facility] [address] [address] [address] Yaneth Walton Chloride [Moles/Vol] 103 mmol/L Normal 98-107 [facility] Comment on above: Performed By: #### B ETA2M #### [facility] [address] [place] [address] Dr. Yaneth Walton CO2 [Moles/Vol] 28.7 mmol/L Normal 21.0-32.0 [facility] Comment on above: Performed By: #### B ETA2M #### [facility] [address] [place] [address] Dr. Yaneth Walton Creatinine [Mass/Vol] 0.84 mg/dL Normal 0.55-1.02 [facility] Comment on above: Performed By: #### B ETA2M #### [facility] [address] [place] [address] Dr. Yaneth Walton EGFR-AF [place]ORE[place] >60 Normal >=60 [facility] Comment on above: Performed By: #### B ETA2M #### [facility] [address] [place] [address] Dr. Yaneth Walton EGFR-NON AF [place] >60 Normal >=60 [facility] Comment on above: Performed By: #### B ETA2M #### [facility] [address] [place] [address] Dr. Yaneth Walton Globulin (S) [Mass/Vol] 3.7 g/dL Normal [facility] Comment on above: Performed By: #### B ETA2M #### [facility] [address] [place] [address] Dr. Yaneth Walton Glucose [Mass/Vol] 90 mg/dL Normal 74-106 [facility] Comment on above: Performed By: #### B ETA2M #### [facility] [address] [address] [address] Yaneth Walton Potassium [Moles/Vol] 3.7 mmol/L Normal 3.5-5.1 [facility] Comment on above: Performed By: #### B ETA2M #### [facility] [address] [address] [address] Yaneth Walton Protein [Mass/Vol] 7.4 g/dL Normal 6.1-8.2 [facility] Comment on above: Performed By: #### B ETA2M #### [facility] [address] [address] [address] Yaneth Walton Sodium [Moles/Vol] 140 mmol/L Normal 136-145 [facility] Comment on above: Performed By: #### B ETA2M #### [facility] [address] [address] [address] Yaneth Walton Urea nitrogen [Mass/Vol] 22.0 mg/dL Critically high 7.0-18 .0 [facility] Comment on above: Performed By: #### B ETA2M #### [facility] [address] [address] [address] Yaneth Walton Urea nitrogen/Creatinine [Mass ratio] 26.2 mg/mg Normal [facility] Comment on above: Performed By: #### B ETA2M #### [facility] [address] [address] [address] Yaneth Walton Vital Signs Date Time Vital Sign Value Performing Clinician Yamilexi josy 08-29-2023 13:53-0400 Body height 149.86 cm MD Miguel Allen Work Phone: [facility] 08-29-2023 13:53-0400 Body mass index (BMI) [Ratio] 31.7 kg/m2 MD Miguel Allen Work Phone: [facility] 08-29-2023 13:53-0400 Body temperature 97 [degF] MD Miguel Allen Work Phone: [facility] 08-29-2023 13:53-0400 Body weight 71.21 kg MD Miguel Allen Work Phone: [facility] 08-29-2023 13:53-0400 Diastolic blood pressure 77 mm[Hg] MD Miguel Allen Work Phone: [facility] 08-29-2023 13:53-0400 Heart rate 71 /min MD Miguel Allen Work Phone: [facility] 08-29-2023 13:53-0400 Respiratory rate 16 /min MD Miguel Allen Work Phone: [facility] 08-29-2023 13:53-0400 SaO2% (BldA) [Mass fraction] 97 % MD Miguel Allen Work Phone: [facility] 08-29-2023 13:53-0400 Systolic blood pressure 148 mm[Hg] MD Miguel Allen Work Phone: [facility] 08-08-2023 10:37-0400 Diastolic blood pressure 86 mm[Hg] MD Miguel Allen Work Phone: [facility] 08-08-2023 10:37-0400 Heart rate 61 /min MD Miguel Allen Work Phone: [facility] 08-08-2023 10:37-0400 Respiratory rate 16 /min MD Miguel Allen Work Phone: [facility] 08-08-2023 10:37-0400 SaO2% (BldA) [Mass fraction] 99 % MD Miguel Allen Work Phone: [facility] 08-08-2023 10:37-0400 Systolic blood pressure 152 mm[Hg] MD Miguel Allen Work Phone: [facility] 08-08-2023 09:10-0400 Body height 144.78 cm MD Miguel Allen Work Phone: [facility] 08-08-2023 09:10-0400 Body weight 70.3 kg MD Miguel Allen Work Phone: [facility] 07-25-2023 09:57-0400 Body height 144.78 cm MD Miguel Allen Work Phone: [facility] 07-25-2023 09:57-0400 Body mass index (BMI) [Ratio] 34.4 kg/m2 MD Miguel Allen Work Phone: [facility] 07-25-2023 09:57-0400 Body temperature 97.9 [degF] MD Miguel Allen Work Phone: [facility] 07-25-2023 09:57-0400 Body weight 72.12 kg MD Miguel Allen Work Phone: [facility] 07-25-2023 09:57-0400 Diastolic blood pressure 92 mm[Hg] MD Miguel Allen Work Phone: [facility] 07-25-2023 09:57-0400 Heart rate 69 /min MD Miguel Allen Work Phone: [facility] 07-25-2023 09:57-0400 Respiratory rate 16 /min MD Miguel Allen Work Phone: [facility] 07-25-2023 09:57-0400 SaO2% (BldA) [Mass fraction] 98 % MD Miguel Allen Work Phone: [facility] 07-25-2023 09:57-0400 Systolic blood pressure 178 mm[Hg] MD Miguel Allen Work Phone: [facility] Encounters Encounter Date Encounter Type Care Provider Facility Start: 09-19-2023 End: 09-19-2023 ambulatory ANGELIA MARTIN Not Available Start: 08-29-2023 End: 08-29-2023 ambulatory MD Miguel Allen Work Phone: [facility] Work Phone: Start: 08-29-2023 End: 08-29-2023 Patient encounter procedure MD Miguel Allen Work Phone: [facility]: Start: 08-29-2023 Registered Recurring MD Miguel Allen Work Phone: [facility] Work Phone: Start: 08-29-2023 ambulatory Tatiana Douglas Facility:[facility] Start: 08-09-2023 End: 08-09-2023 ambulatory Miguel Allen Facility:[facility] [place] Start: 08-08-2023 End: 08-08-2023 Admission to same day surgery center MD Miguel Allen Work Phone: [facility] Work Phone: Start: 08-08-2023 End: 08-08-2023 ambulatory MD Miguel Allen Work Phone: [facility] Work Phone: Start: 07-25-2023 End: 07-25-2023 ambulatory MD Miguel Allen Work Phone: [facility] Work Phone: Start: 07-25-2023 End: 07-25-2023 Patient encounter procedure MD Miguel Allen Work Phone: [facility] Work Phone: Start: 07-25-2023 Registered Recurring MD Miguel Allen Work Phone: [facility] Work Phone: Start: 01-29-2023 End: 01-30-2023 ambulatory Alice Ryan MD Facility:[facility] Start: 12-25-2022 End: 12-26-2022 ambulatory Alice Ryan MD Facility:[facility] [place] Start: 11-27-2022 End: 11-28-2022 ambulatory Alice Ryan MD Facility:[facility] Start: 11-13-2022 End: 11-14-2022 ambulatory Alice Ryan MD Facility:[facility] [place] Start: 06-21-2022 End: 06-22-[address] CAROL [...] End: 07-08-[address] TATIANA DOUGLAS Facility: Procedures Date Procedure Procedure Detail Performing Clinician Start: 08-22-2023 Radiologic examinati on, osseous survey, complete MD Miguel Allen Work Phone: Start: 08-17-2023 Dual energy X-ray absorptiometry MD Miguel Allen Work Phone: Start: 08-08-2023 Bone marrow sampling MD Miguel Allen Work Phone: Plan of Treatment Date Care Activity Detail Author Start: 12-27-2023 ambulatory Ambulatory Facility:[facility] Start: 08-08-2023 End: 08-08-2023 [facility] Start: 08-08-2023 Bone marrow sampling [facility] [id number] [Mass/volume] in Serum or Plasma [facility] [id number] [Mass/volume] in Serum or Plasma [facility] Bone marrow sampling [facility] Ceruloplasmin [Mass/volume] in Serum or Plasma [facility] Comprehensive metabo lic 2000 panel - Serum or Plasma [facility] Copper measurement [facility] DXA Skeletal system. axial Views for bone density [facility] Patient Education [facility] Bone Marrow Aspiration or Biopsy Know your Meds [facility] Work Phone: [facility] Payers Date Payer Category Payer Self-pay [id number] 2023 Unknown [id number] 2022 Medicare 2022 Unknown 1959 Medicare [id number] 1959 Unknown [id number] 1950 Unknown [id number] 2.16.84 [id number] 1950 Unknown [id number] 2.16.84 0.1.285569.3.579.2.593 1950 Unknown [id number] 2.16.84 0.1.796771.3.579.2.593 1950 Unknown [id number] 2.16.84 0.1.043409.3.579.2.593 1950 Unknown [id number] 2.16.84 0.1.673700.3.579.2.593 1950 Unknown [id number] 2.16.84 0.1.202365.3.579.2.593 1950 Unknown [id number] 2.16.84 0.1.795590.3.579.2.593 1950 Unknown [id number] 2.16. 840.1.380826.3.579.2.196 1950 Unknown [id number] 2.16. 840.1.230524.3.579.2.196 1950 Unknown [id number] 2.16. 840.1.655249.3.579.2.196 1950 Unknown [id number] 2.16. 840.1.606103.3.579.2.196 1950 Unknown [id number] 2.16.8 40.1.138762.3.579.2.727 1950 Unknown [id number] 2.16.8 40.1.601894.3.579.2.727 1950 Unknown [id number] 2.16.8 40.1.843950.3.579.2.727 1950 Unknown [id number] 2.16.84 0.1.850340.3.579.2.1259 Unknown [facility] [id number] Unknown [id number] 2.16.8 40.1.123631.3.579.2.531 Unknown [id number] 2.16.8 40.1.450239.3.579.2.531 Social History Date Type Detail Facility Tobacco smoking stat us [facility] Unknown if ever smoked [facility] Work Phone: Start: 1950 Sex Assigned At Female F [facility] Start: 07-25-2023 End: 08-08-2023 Tobacco smoking status ILIS Never smoked tobacco (finding) [facility] Evaluation note Note Date & Type Note Facility Evaluation note No assessment information availa ble [facility] Work Phone: Evaluation note Note Date & Type Note Facility Evaluation note Diagnosis Onset Date Peripheral neuropathy acute History of parathyroidectomy chronic MGUS (monoclonal gammopathy of unknown significance) chronic Osteoporosis chronic Sjogrens syndrome chronic [facility] Work Phone: Evaluation note Note Date & Type Note Facility Evaluation note Diagnosis Onset Date Peripheral neuropathy acute History of parathyroidectomy chronic MGUS (monoclonal gammopathy of unknown significance) chronic Osteoporosis chronic Sjogrens syndrome chronic MGUS (monoclonal gammopathy of unknown significance) chronic Peripheral neuropathy acute History of parathyroidectomy chronic MGUS (monoclonal gammopathy of unknown significance) chronic Osteoporosis chronic Sjogrens syndrome chronic [facility] Work Phone: Progress note Note Date & Type Note Facility Progress note Note Date/Time July 25, 2023 10:06[facility] [place] [address] Cancer Center Note Signed Patient: Misty Perez MR#: [id number] : 1950 Acct:[id number] Age/Sex: 73 / F Type: DEP [facility] Date of Service: 07/25/23 Copies to: Carol [...] to pain injections and spinal ablation at [facility]. M spikehas now trended up to 0.1. [...] Plan: We are requesting outside records from [facility] for her spinal procedures for peripheral neuropathy and any imaging that they have performed. Proceed with bone marrow biopsy for workup of possible progression of MGUS to myeloma. (3) Osteoporosis: Plan: Due to hypercalcemia the patient was referred [facility] which revealed lumbar spine T score 1.1, normal range and right femoral neck T score -2.8 consistent with osteoporosis. This should be repeatedevery 2 years, and she remains on Boniva therapy without calcium and vitamin D due to hypercalcemia. No acute bony abnormalities are punched out lytic lesions on bone survey 01/19/2021 at [facility]. -- Patient was told by Dr. Lopes [...] to genetics ( sees clinic here at [facility] once monthly) for evaluation of multiple endocrine [...] with labs prior. Please request records from [place] from February 2023. CHEMO PLAN No Active Chemotherapy History of Present Illness HPI 07/25/2023: Misty is here for 2-year follow-up of MGUS. When I last saw her in clinic, I referred back to primary care and nephrology for following her symptoms, however she was asked to return for review of her laboratories. Sincebety was last seen she underwent 3 nerve block procedures at [facility] with neurology (Dr. Cox), then was referred [...] Serum immunofixation shows IgG lambda monoclonal protein. [place]/lambda light chain ratio is normal however there [...] persistent joint stiffness on Plaquenil. Labs from [facility] reviewed from 07/07/2021 showing normal CBC, normal [...] She also had a thyroid ultrasound at [place] which is not available for my review [...] visit for MGUS and go over labs [facility] Medical History Medical History Fibromyalgia Multinodular goiter [...] Total Protein 7.1 Albumin 4.4 Globulin 2.7 [facility] labs reviewed: White blood cell count 5500, [...] abnormalities. Dictated By: Tatiana Douglas MD DD/ 6 Signed By: <Electronically signed by MD Tatiana Douglas> 07/25/23 1425 [facility] Work Phone: Summary Purpose Family History [...] unknown significance) Osteoporosis Sjogrens syndrome Chief Complaint Follow Up D47.2 MGUS Follow Up Reason for Visit Peripheral neuropath y History of parathyroidectomy MGUS (monoclonal gammopathy of unknown significance) Osteoporosis Sjogrens syndrome MGUS (monoclonal gammopathy of unknown significance) Peripheral neuropathy History of parathyroidectomy MGUS (monoclonal gammopathy of unknown significance) Osteoporosis Sjogrens syndrome Additional Source Comments INFORMATION SOURCE (unrecogn ized section and content) DATE CREATED AUTHOR 08/13/2021 [facility] DATE CREATED AUTHOR AUTHOR'S ORGANIZ ATION 07/05/2022 [facility] DATE CREATED AUTHOR AUTHOR'S ORGANIZ ATION 02/02/[address] [facility] DATE CREATED AUTHOR AUTHOR'S ORGANIZ ATION 08/17/2023 [facility] DATE CREATED AUTHOR AUTHOR'S ORGANIZ ATION 09/23/2023 [facility] DATE CREATED AUTHOR AUTHOR'S ORGANIZ ATION 10/04/2023 [facility] Goals (unrecognized section and content) Goals may be documented in a n alternate sectionGoals may be documented in an alternate sectionGoals may be documented in an alternate sectionGoals may be documented in an alternate section Care Teams (unrecognized sec tion and content) Team Status: Active Member Role Status Dates Miguel Allen MD Primary Care Provider Active Team Status: Inactive Member Role Status Dates [...] August 08, 2023 End: August 08, 2023 Team Status: Active Member Role Status Dates Tatiana Douglas MD Attending Provider Active Start: August 29, 2023 Miguel Allen MD Primary Care Provider Active Start: August 29, 2023 Team Status: Inactive Member Role Status Dates Miguel Allen MD Primary Care Provider Active Start: August 29, 2023 End: August 29, 2023 Tatiana Douglas MD Attending Provider Active Start: August 29, 2023 End: August 29, 2023 Team Status: Active Member Role Status Dates Tatiana Douglas MD Attending Provider Active Start: July 25, 2023 Miguel Allen MD Primary Care Provider Active Start: July 25, 2023 FOR RECORDS PERTAINING TO PATIENTS WHO [...] BE BASED ON THE PRIMARY CLINICAL RECORDS. [email or web address] provides no warranty or guarantee of the accuracy or completeness of information in this document.
[2023-12-26 10:16] LABS: Basophils Percent Auto 0.8 % (0.2-2.0); Eosinophils Absolute Auto 0.1 10^3/uL (0.0-0.7); Eosinophils Percent Auto 2.9 % (0.9-7.0); Hemoglobin 12.5 g/dL (12.0-16.0); Immature Granulocytes Abs Auto 0.02 10^3/uL (0.00-0.03); Immature Granulocytes Pct Auto 0.4 % (0.0-0.5); Lymphocytes Absolute Auto 0.8 10^3/uL (1.2-3.8); Lymphocytes Percent Auto 17.2 % (20.5-60.0); Mean Corpuscular HGB Conc 32.1 g/dL (29.9-35.2); Mean Corpuscular Hemoglobin 30.8 pg (26.7-34.0); Mean Corpuscular Volume 96.1 fL (81.0-99.0); Mean Platelet Volume 10.9 fL (9.5-13.5); Monocytes Absolute Auto 0.5 10^3/uL (0.3-0.8); Monocytes Percent Auto 9.5 % (1.7-12.0); Neutrophils Absolute Auto 3.3 10^3/uL (1.4-6.5); Neutrophils Percent Auto 69.2 % (43.0-75.0); Platelet Count 196 10^3/uL (150-450); Red Blood Count 4.06 10^6/uL (4.20-5.40); Red Cell Distribution Width 13.1 % (11.0-15.0); White Blood Count 4.8 10^3/uL (4.0-11.0)
[2023-12-26 10:24] LABS: Bilirubin Urine NEGATIVE (NEGATIVE); Blood Urine NEGATIVE (NEGATIVE); Clarity Urine CLEAR (CLEAR); Color Urine LT. YELLOW (YELLOW); Glucose Urine UA NEGATIVE (NEGATIVE); Ketones Urine NEGATIVE (NEGATIVE); Leukocyte Esterase Urine TRACE (NEGATIVE); Nitrite Urine NEGATIVE (NEGATIVE); Protein Urine NEGATIVE (NEG/TRACE); Specific Gravity Urine 1.015 (1.005-1.025); Urobilinogen Urine 0.2 EU/dL (0.2-1.0)
[2023-12-26 10:25] LABS: Erythrocyte Sedimentation Rate 27 mm/hr (<=30)
[2023-12-26 10:32] LABS: RBC Urine 0-2 #/HPF (0-2)
[2023-12-26 10:33] LABS: Bacteria Urine SMALL #/HPF (NONE SEEN); Cast Seen? NONE SEEN #/LPF (NONE SEEN); Crystals Seen? None Seen #/HPF (None Seen); Mucus Urine TRACE (NONE SEEN); Squamous Epithelial Cell Urine RARE #/LPF (NONE/RARE); Transitional Epi Cells Urine RARE #/LPF (NONE SEEN)
[2023-12-26 11:00] LABS: Estimated GFR (African America >60 (>=60 mL/min/1.73m^2); Estimated GFR (Non-African Ame 53 (>=60 mL/min/1.73m^2)
[2023-12-27 08:13] LABS: Complement C3, Serum 146 mg/dL (82-167); Complement C4, Serum 25 mg/dL (12-38)
== END 2023-12-26 09:59 | disposition home or self-care (01) ==
LOC: LAB 09:58
PROVIDERS: PCP Family Medicine; Visit Provider Internal Medicine Rheumatology
DX: M35.01 Sjogren syndrome with keratoconjunctivitis (principal); Z79.899 Other long term (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 therapy
CPT/HCPCS: 36415; 81001; 82565; 85025; 85652; 86160

== ENCOUNTER 2024-06-18 09:26 | Outpatient (OUT) | payer MEDICARE, OTHER, SELFPAY ==
[2024-06-18 09:43] LABS: Bilirubin Urine NEGATIVE (NEGATIVE); Blood Urine NEGATIVE (NEGATIVE); Clarity Urine CLEAR (CLEAR); Color Urine LT. YELLOW (YELLOW); Glucose Urine UA NEGATIVE (NEGATIVE); Ketones Urine NEGATIVE (NEGATIVE); Leukocyte Esterase Urine NEGATIVE (NEGATIVE); Nitrite Urine NEGATIVE (NEGATIVE); Protein Urine NEGATIVE (NEG/TRACE); Urobilinogen Urine 0.2 EU/dL (0.2-1.0)
[2024-06-18 09:51] LABS: Hemoglobin 13.4 g/dL (12.0-16.0); Mean Corpuscular HGB Conc 32.7 g/dL (29.9-35.2); Mean Corpuscular Hemoglobin 30.3 pg (26.7-34.0); Mean Corpuscular Volume 92.8 fL (81.0-99.0); Mean Platelet Volume 11.5 fL (9.5-13.5); Platelet Count 176 10^3/uL (150-450); Red Blood Count 4.42 10^6/uL (4.20-5.40); Red Cell Distribution Width 13.2 % (11.0-15.0); White Blood Count 5.9 10^3/uL (4.0-11.0)
[2024-06-18 10:03] LABS: Bacteria Urine NONE SEEN #/HPF (NONE SEEN); Cast Seen? NONE SEEN #/LPF (NONE SEEN); Crystals Seen? None Seen #/HPF (None Seen); Mucus Urine TRACE (NONE SEEN); RBC Urine NONE SEEN #/HPF (0-2); Squamous Epithelial Cell Urine RARE #/LPF (NONE/RARE); WBC Urine NONE SEEN #/HPF (NONE SEEN)
[2024-06-18 10:06] LABS: Erythrocyte Sedimentation Rate 9 mm/hr (<=30)
[2024-06-18 10:19] LABS: Estimated GFR (African America >60 (>=60 mL/min/1.73m^2); Estimated GFR (Non-African Ame 53 (>=60 mL/min/1.73m^2)
[2024-06-18 10:20] LABS: Band Neutrophils Absolute 0.4 10^3/uL (0.0-0.3); Eosinophils Absolute Manual 0.05 10^3/uL (0.00-0.70); Lymphocytes Absolute Manual 0.59 10^3/uL (1.20-3.80); Monocytes Absolute Manual 0.05 10^3/uL (0.30-0.80); Segmented Neut Absolute Manual 4.83 10^3/uL (1.4-6.5)
[2024-06-19 04:07] LABS: Complement C3, Serum 134 mg/dL (82-167); Complement C4, Serum 22 mg/dL (12-38)
== END 2024-06-18 09:27 | disposition home or self-care (01) ==
LOC: LAB 09:26
PROVIDERS: PCP Family Medicine; Visit Provider Internal Medicine Rheumatology
DX: M35.9 Systemic involvement of connective tissue, unspecified (principal)
CPT/HCPCS: 36415; 81001; 82565; 85007; 85027; 85652; 86160

== ENCOUNTER 2024-07-15 20:48 | Emergency (ER) | payer MEDICARE, OTHER, SELFPAY ==
--- OUTSIDE RECORDS SUMMARY | 2024-07-15 20:55 | XMS_ITS | CCD ---
Author Organization [facility] Team Providers Care Set O Type Operator Name Role Phone KENNEDY ., DR GER Vyas Primary Care Unavailable KELLY, LEIGH Admitting Unavailable KELLY, LEIGH Attending Unavailable MISAEL, DR TATIANA Tracy Admitting Unavailable KENNEDY ., DR GER Vyas Primary Care Unavailable MISAEL, DR TATIANA Tracy Attending Unavailable MISAEL, DR TATIANA Tracy Consulting Unavailable KENNEDY ., DR GER Vyas Primary Care Unavailable HALADADeacon, DR SINGH Consulting Unavailable ANDREWADADeacon, DR SINGH Admitting Unavailable HALADADeacon, DR SINGH Attending Unavailable KENNEDY ., DR GER Vyas Admitting Unavailable KENNEDY ., DR GER Vyas Attending Unavailable KENNEDY ., DR EGR Vyas Consulting Unavailable KENNEDY ., DR GER Vyas Primary Care Unavailable ROSITA, DR HEATHER Parekh Consulting Unavailable MARIANNE, DR SINGH Consulting Unavailable KENNEDY ., DR GER Vyas Admitting Unavailable KENNEDY ., DR GER Vyas Attending Unavailable KENNEDY ., DR GER Vyas Consulting Unavailable KENNEDY ., DR GER Vyas Primary Care Unavailable ROSITA, DR HEATHER Parekh Consulting Unavailable MARIANNE, DR SINGH Consulting Unavailable KENNEDY ., DR GER Vyas Primary Care Unavailable MARIANNE, DR SINGH Admitting Unavailable HALADADeacon, DR SINGH Attending Unavailable KENNEDY ., DR GER Vyas Admitting Unavailable KENNEDY ., DR GER Vyas Attending Unavailable KENNEDY ., DR GER Vyas Consulting Unavailable KENNEDY ., DR GER Vyas Primary Care Unavailable DR NOEMI ACOSTA Consulting Unavailable Connor BRADFORD, Alice Miranda Attending Unavailable Connor BRADFORD, Alice Miranda Attending Unavailable Connor BRADFORD, Alice Miranda Attending Unavailable Connor BRADFORD, Alice Miranda Attending Unavailable MD Tatiana Douglas Attending Provider MD Miguel Allen Primary Care Provider MD Miguel Allen Primary Care Provider [phone] MD Tatiana Douglas Attending Provider [phone] Miguel Allen Primary Care Physician Miguel Allen Attending Unavailable Miguel Allen Admitting Unavailable Miguel Allen MD Primary Care Provider Migeul Allen Primary Care Unavailable Tatiana Douglas Attending Unavailable Tatiana Douglas Admitting Unavailable Tatiana Douglas Attending Unavailable Tatiana Douglas Admitting Unavailable Miguel Allen Primary Care Unavailable Miguel Allen MD Primary Care Provider [phone] Juancarlos TOMLINSON, Felicia Unavailable FELICIA SALAZAR Attending Unavailable FELICIA SALAZAR Attending Unavailable MD Miguel Allen Attending Unavailable MD Miguel Allen Attending Unavailable MD Miguel Allen Attending Unavailable MD Miguel Allen Admitting Unavailable MD Miguel Allen Attending Unavailable MD Miguel Allen Attending Unavailable MD Miguel Allen Attending Unavailable Miguel Allen Admitting Unavailable Miguel Allen Attending Unavailable Adithya Thomas DO Unavailable [phone] Allergies Allergy Classification Reported Allergen(s) Allergy Type Date of Onset Reaction(s) Facility Anti-Epileptic Agents (1 source) gabapentin Drug Allergy 08-08-19 24 Insomnia [facility] Dihydrofolate Reductase Inhibitors (antibiotic) (1 source) Trimethoprim Drug Allergy 08-08-19 24 [facility] Latex (1 source) Latex Substance Allergy 08-08-19 24 blisters at site of contact [facility] Opioid Agonists (3 sources) Meperidine Drug Allergy 08-08-19 24 Nausea [facility] Sulfonamides (antibiotic) (1 source) Sulfamethoxazole Drug Allergy 08-08-19 24 [facility] (4 sources) gabapentin Drug Allergy 07-15-19 22 Insomnia [facility] Rep[facility] (1 source) Sulfamethoxazole / Trimethoprim Drug Allergy [facility] (1 source) Sulfonamides (Antibiotic) Drug allergy (disorder) 08-21-19 15 [facility] (11 sources) Latex; Translations: [latex] Allergy to substance 09-02-19 15 [facility] (12 sources) Meperidine; Translations: [Meperidine] Drug Allergy 07-15-19 Nausea (finding), GI intolerance [facility] (14 sources) Morphine; Translations: [Morphine] Drug Allergy 07-15-19 Nausea (finding), Nausea Only [facility] (11 sources) oxyCODONE; Translations: [oxycodone] Drug Allergy 07-15-19 GI intolerance [facility] (4 sources) Sulfamethoxazole; Translations: [sulfamethoxazole] Drug Allergy 07-15-19 [facility] (11 sources) Trimethoprim; Translations: [trimethoprim] Drug Allergy 07-15-19 [facility] (3 sources) Acetaminophen / oxyCODONE; Translations: [acetaminophen-oxyc odone] Drug Allergy Nausea (finding) [facility] (10 sources) gabapentin; Translations: [gabapentin] Drug Allergy 09-16-19 Unknown (qualifier value) [facility] (3 sources) Sulfonamides (Antibiotic); Translations: [sulfa drugs] Drug allergy Unknown (qualifier value) [facility] (7 sources) Meperidine Drug Allergy 09-19-19 Nausea Only [facility] (7 sources) Sulfamethoxazole / Trimethoprim Drug Allergy 09-16-19 [facility] (7 sources) Sulfonamides (Antibiotic) Propensity to adverse reactions 09-16-19 [facility] (1 source) gabapentin Drug Allergy 02-21-20 [facility] Repository (2 sources) Meperidine; Translations: [Demerol] Drug Allergy [facility] Repository Medications Current Medications Medication Drug Class(es) Dates Sig (Normalized) Sig (Original) Acetaminophen (8 sources) Start: 12-25-2022 acetaminophen 650 mg, PRN as needed for pain, Refills(s) 0 Start Date: 12/25/22 Status: Ordered take 1 tablet by maren th every eight hours as needed for pain acetaminophen (Tylenol 8 Hour) 650 MG ER tablet Take 650 mg by mouth every 8 (eight) hours if needed for mild pain Do not crush, chew, or split. Active atorvastatin 10 mg oral tablet (16 sources) HMG-CoA Reductase Inhibitor Start: 11-12-2023 take 1 tablet by mouth once daily atorvastatin 10 mg Tab 10 mg = 1 tab(s), Oral, Daily, # 90 tab(s), Refills(s) 4, Pharmacy: [facility], 146, cm, 08/09/23 10:30:00 EDT, Height/Length Dosing, 70.6, kg, 08/09/23 10:30:00 EDT, Weight Dosing Start Date: 11/12/23 Status: Ordered Start: 12-19-2016 End: 10-15-2017 take 10 mg by mouth once daily Atorvastatin Discontinu ed 10 MG PO Daily June 22, 2017 12:00am October 15, 2017 10:46am Carboxymethylcellulose Sodium (Refresh Tears) 0.5 % Drops (4 sources) Start: 12-19-2016 Carboxymethylcellulose Sodium (Refresh Tears) 0.5 % Drops Active 1 DROPS OPHTHALMIC 4-12 TIMES PER DAY December 19, 2016 12:00am carboxymethylcellulose-sod ium hyaluronate (1 source) Start: 08-09-2023 carboxymethylcellulose-sod ium hyaluronate See Instructions, Refill(s) 0, 0.5% 1 drop both etes 4-12 times a day as needed Start Date: 08/09/23 Status: Ordered cholecalciferol 0.05 mg oral capsule (14 sources) Vitamin D Start: 07-25-2023 take 50 ug by mouth once daily Cholecalciferol (Vitamin D3) Active 50 MCG PO Daily July 25, 2023 12:00am Start: 12-19-2016 End: 06-22-2017 take 1 tablet by mouth once daily Cholecalciferol (Vitamin D3) (Vitamin D3) 5,000 unit Tablet Discontinued 5000 UNIT PO Daily December 19, 2016 12:00am June 22, 2017 10:11am cholecalciferol (Vitamin D-3) 50 MCG (2000 UT) capsule Take 2,000 Units by mouth Active Fluocinonide (4 sources) Corticosteroid Start: 08-09-2023 fluocinonide T op 0.05% Crm 15 gram See Instructions, Refill(s) 0, 1 torrie Topical to scalp sunday through sunday, none on the weekend Start Date: 08/09/23 Status: Ordered Start: 07-25-2023 Fluocinonide A ctive 1 APPLIC TOPICAL Twice daily July 25, 2023 12:00am furosemide 20 mg oral tablet (12 sources) Loop Diuretic Start: 06-22-2017 take 1 tablet by mouth once daily furosemide 20 mg Tab See Instructions, TAKE ONE TABLET BY MOUTH DAILY, # 90 EA, Refills(s) 4, Pharmacy: [facility], 146, cm, 08/09/23 10:30:00 EDT, Height/Length Dosing, 70.6, kg, 08/09/23 10:30:00 EDT, Weight Dosing Start Date: 11/12/23 Status: Ordered hydroxychloroquine sulfate 200 mg oral tablet (12 sources) Antimalarial, Antirheumatic Agent Start: 12-19-2016 take 1 tablet by mouth twice daily, then take 1 tablet by mouth once daily hydroxychloroquine 200 mg Tab See Instructions, 200mg orally twice a day alternating with 200mg once a day, Refills(s) 0 Start Date: 07/24/22 Status: Ordered ketoconazole 20 mg/ml medicated shampoo (12 sources) Azole Antifungal Start: 08-09-2023 ketoconazole Top 2% Shampoo 1 torrie, Topical, Every other day, Refill(s) 0 Start Date: 08/09/23 Status: Ordered Start: 07-25-2023 Ketoconazole A ctive 1 APPLIC TOPICAL Daily July 25, 2023 12:00am Start: 12-25-2022 ketoconazole = 2 %, Topical, Daily, PRN Rash, Refills(s) 0 Start Date: 12/25/22 Status: Ordered levothyroxine sodium 0.05 mg oral tablet (12 sources) l-Thyroxine Start: 08-09-2023 take 1 tablet by mouth once daily levothyroxine 50 mcg (0.05 mg) Tab 50 mcg = 1 tab(s), Oral, Daily, # 90 tab(s), Refills(s) 1, [facility], 146, cm, 08/09/23 10:30:00 EDT, Height/Length Dosing, 70.6, kg, 08/09/23 10:30:00 EDT, Weight Dosing Start Date: 08/09/23 Status: Ordered Start: 12-19-2016 take 50 ug by mouth once daily Levothyroxine Active 50 MCG PO Daily December 19, 2016 12:00am lisinopril 10 mg oral tablet (12 sources) Angiotensin Converting Enzyme Inhibitor Start: 12-19-2016 take 1 tablet by mouth once daily lisinopril 10 mg Tab 10 mg = 1 tab(s), Oral, Daily, # 90 tab(s), Refills(s) 1, Pharmacy: [facility] 1155, 146, cm, 08/09/23 10:30:00 EDT, Height/Length Dosing, 70.6, kg, 08/09/23 10:30:00 EDT, Weight Dosing Start Date: 08/09/23 Status: Ordered metroNIDAZOLE 7.5 mg/ml topical cream (11 sources) Nitroimidazole Antimicrobial Start: 07-25-2023 Metronidazole Active 1 APPLIC TOPICAL Daily July 25, 2023 12:00am Start: 07-24-2022 metronidazole topical 1% cream 1 torrie, Topical, BID, 30 gram, Refill(s) 0, use for rosacea Start Date: 07/24/22 Status: Ordered metroNIDAZOLE (M etrocream) 0.75 % cream Apply 2 application topically in the morning and 2 application before bedtime. for 90 days, Notes to Pharmacist: Rosacea. Active naproxen sodium 220 mg oral tablet (11 sources) Nonsteroidal Anti-inflammatory Drug Start: 07-25-2023 take 220 mg by mouth twice daily Naproxen Sodium Active 220 MG PO Twice daily July 25, 2023 12:00am Start: 12-25-2022 naproxen 500 m g, Oral, PRN as needed for pain, Refills(s) 0 Start Date: 12/25/22 Status: Ordered take 1 tablet by maren every twelve hours naproxen sodium (Aleve) 220 MG tablet Take 220 mg by mouth every 12 (twelve) hours Active nortriptyline 10 mg oral capsule (7 sources) Tricyclic Antidepressant Start: 02-28-2023 nortriptyline (Pamelor) 10 MG capsule Take 10 mg by mouth 02/28/2023 Active triamcinolone acetonide 1 mg/ml topical cream (7 sources) Corticosteroid triamcinolone (Kenalog) 0.1 % cream Apply 1 application topically 2 (two) times a week Active Vitamin D3 2000 intl units oral Tab (1 source) Start: 07-24-2022 take 1 tablet by mouth once daily Vitamin D3 2000 intl units oral Tab 50 mcg, Oral, Daily, # 100 cap(s), Refills(s) 0, Pharmacy: [facility], 149.9, cm, 07/24/22 13:31:00 EDT, Height/Length Dosing, 69.1, kg, 07/24/22 13:31:00 EDT, Weight Dosing Start Date: 07/24/22 Status: Ordered Completed/Discontinued Medications Medication Drug Class(es) Dates Sig (Normalized) Sig (Original) chlorthalidone 25 mg oral tablet (4 sources) Thiazide-like Diuretic Start: 12-19-2016 End: 06-22-2017 take 12.5 mg by mouth once daily Chlorthalidone Discontinued 12.5 MG PO Daily December 19, 2016 12:00am June 22, 2017 10:11am ibandronic acid 150 mg oral tablet (11 sources) Bisphosphonate Start: 12-19-2016 End: 08-29-2023 take 1 tablet by mouth every month Ibandronate (Boniva) 150 mg Tablet Discontinued 150 MG PO every month December 19, 2016 12:00am August 29, 2023 1:56pm take 1 tablet by maren th every 30 days in the morning ibandronate (Boniva) 150 MG tablet Take 150 mg by mouth every 30 (thirty) days Take in morning with full glass of water on an empty stomach. No food, drink, meds, or lying down for 60 minutes after. Active omeprazole 20 mg delayed release oral capsule (11 sources) Proton Pump Inhibitor Start: 12-19-2016 End: 10-29-2017 take 20 mg by mouth once daily Omeprazole Discontinued 20 MG PO Daily December 19, 2016 12:00am October 29, 2017 9:35am Potassium Chloride (12 sources) Start: 08-09-2023 take 1 tablet by mouth once daily Potassium Chloride (Aou-Lftq-Hel 10) 10 mEq oral tablet, extended release 10 mEq = 1 tab(s), Oral, Daily, # 90 tab(s), Refills(s) 1, Pharmacy: [facility], 146, cm, 08/09/23 10:30:00 EDT, Height/Length Dosing, 70.6, kg, 08/09/23 10:30:00 EDT, Weight Dosing Start Date: 08/09/23 Status: Ordered Start: 06-22-2017 take 10 mEq by mouth once temi y Potassium Chloride Active 10 MEQ PO Daily June 22, 2017 12:00am Problems Active Problems Problem Classification Problem Date Documented Date Episodic/Chronic Deficiency and other anemia (1 source) Anemia 07-24-2022 Episodic Disorders of lipid metabolism (5 sources) Pure hypercholesterolemia, unspecified; Translations: [Hyperlipidemia] Onset: 2 Chronic Essential hypertension (1 source) Hypertensive disorder 07-24-2022 Chronic Malaise and fatigue (2 sources) Weakness; Translations: [Other fatigue] Onset: 2 Episodic Neoplasms of unspecified nature or uncertain behavior (15 sources) Monoclonal gammopathy; Translations: [Monoclonal gammopathy of uncertain significance] Onset: 2 Chronic Nutritional deficiencies (2 sources) Vitamin D deficiency, unspecified; Translations: [Vitamin D deficiency] Onset: 2 07-24-2022 Chronic Osteoarthritis (1 source) Osteoarthritis of knee 07-24-2022 Chronic Osteoporosis (9 sources) Osteoporosis; Translations: [Age-related osteoporosis without current pathological fracture] 03-21-2023 Chronic Other bone disease and musculoskeletal deformities (4 sources) Osteopenia; Translations: [Other specified disorders of bone density and structure, unspecified site] 12-23-2016 Episodic Other connective tissue disease (1 source) Abnormal posture; Translations: [ABNORMAL POSTURE] Onset: 3 Episodic Other connective tissue disease (1 source) Fibromyalgia 07-24-2022 Episodic Other endocrine disorders (4 sources) Hyperparathyroidism; Translations: [Hyperparathyroidism, unspecified] 06-22-2017 Chronic Other endocrine disorders (1 source) Hypoparathyroidism 07-24-2022 Chronic Other nervous system disorders (4 sources) Peripheral nerve disease ; Translations: [Polyneuropathy, [...] Onset: 3 Episodic Other nervous system disorders (9 sources) Abnormal gait; Translations: [Unsteadiness on feet] Onset: 4 09-16-2023 Episodic Other nervous system disorders (2 sources) Numbness of hand; Translations: [Anesthesia of skin] 07-14-2024 Episodic Other nutritional; endocrine; and metabolic disorders (1 source) Hypercalcemia; Translations: [HYPERCALCEMIA] Onset: 2 Chronic Other nutritional; endocrine; and metabolic disorders (4 sources) Hypercalcemia; Translations: [Hypercalcemia] 12-22-2016 Chronic Other nutritional; endocrine; and metabolic disorders (1 source) Obesity caused by energy imbalance 12-27-2023 Chronic Residual codes; unclassified (4 sources) History of parathyroidectomy; Translations: [Other specified postprocedural states] 01-14-2021 Episodic Residual codes; unclassified (4 sources) Other specified postprocedural states; Translations: [Other postprocedural status] 07-25-2023 Episodic Spondylosis; intervertebral disc disorders; other back problems (9 sources) Degeneration of lumbar intervertebral disc; Translations: [DDD (degenerative disc disease), lumbar] Onset: 4 09-16-2023 Chronic Spondylosis; intervertebral disc disorders; other back problems (17 sources) Radiculopathy, lumbosacral region; Translations: [Intervertebral disc disorders with radiculopathy, lumbar region] Onset: 2 Episodic Systemic lupus erythematosus and connective tissue disorders (20 sources) Systemic involvement of connective tissue, unspecified; 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] Onset: 2 Chronic Thyroid disorders (2 sources) Autoimmune thyroiditis; Translations: [Hypothyroidism] Onset: 2 12-27-2023 Chronic Unclassified (1 source) LOW BACK PAIN, UNSPECIFIED; Translations: [LOW BACK PAIN, UNSPECIFIED] Onset: 2 Unclassified (1 source) Seborrheic keratosis 07-24-2022 Past or Other Problems Problem Classification Problem Date Documented Da te Episodic/Chronic Other aftercare (1 source) Other retirement (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 therapy; Translations: [[employer]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] Onset: 12-25-2021 Episodic Other connective tissue disease (7 sources) Neuropathic pain; Translations: [Neuralgia and neuritis, unspecified] Onset: 09-16-2023 09-16-2023 Episodic Other non-traumatic joint disorders (3 sources) [...] MALIG NEOPLASM DIGESTIV ORGN] Onset: 08-23-2021 Episodic Unclassified (1 source) Patient encounter status 12-27-2023 Results Test Name Value Interpretation Reference Range Facility Ambulatory Visit Summaryon 0 06-30-2024 Ambulatory Visit Summary Ambulatory Visit Summary SINA PEREZ :1950 Visit Date:06/30/2024 Ambulatory Visit Instructions Your Diagnosis Obesity due to excess calories BMI 33.0-33.9,adult Nonsmoker Primary hypertension Mixed hyperlipidemia Vitamin D deficiency MGUS (monoclonal gammopathy of unknown significance) Hypoparathyroidism, unspecified hypoparathyroidism type Sjogren's syndrome, with unspecified organ involvement Peripheral polyneuropathy Gastro-esophageal reflux disease without esophagitis Your Care Team Attending Physician - Miguel Allen MD Primary Care Physician - Miguel Allen MD This Is Your Medications List acetaminophen atorvastatin (atorvastatin 10 mg Tab) carboxymethylcellulose-sod ium hyaluronate cholecalciferol (Vitamin D3 2000 intl units oral Tab) fluocinonide topical (fluocinonide Top 0.05% Crm 15 gram) furosemide (furosemide 20 mg Tab) hydroxychloroquine (hydroxychloroquine 200 mg Tab) ketoconazole ketoconazole topical (ketoconazole Top 2% Shampoo) levothyroxine (levothyroxine 50 mcg (0.05 mg) Tab) lisinopril (lisinopril 10 mg Tab) metronidazole topical (metronidazole topical 1% cream) naproxen potassium chloride (Potassium Chloride (Zgo-Jxgw-Rfe 10) 10 mEq oral tablet, extended release) Procedures Performed Bone marrow biopsy (08/13/2023), Ablation, Biopsy of breast, Biopsy of thyroid, Bone graft, Bone marrow biopsy, Cancer of skin, Cataract, Colonoscopy, Internal fixation of fracture, Mohs surgery, Parathyroidectomy, Repair of tendon, BREANNA BSO - Total abdominal hysterectomy and bilateral salpingo-oophorectomy. Discharge Vitals Temperature (Tympanic) 36.9 ???C Heart Rate (Peripheral) 66 Respiratory Rate 18 Blood Pressure 140/86 Height 150 cm Height 59 in Weight 75.1 kg Weight 165.567 lb BMI 33.38 What to do next Scheduled Follow-Up Appointments 2024 9:30 AM EDT Where: [place] [id number]- Medications What How Much When Instructions Unchanged acetaminophen 650 Milligram As needed for as needed for pain Unchanged atorvastatin (atorvastatin 10 mg Tab) 1 Tablets By Mouth Every day Unchanged carboxymethylcellulose-sod ium hyaluronate See instructions 0.5% 1 drop both etes 4-12 times a day as needed Unchanged cholecalciferol (Vitamin D3 2000 intl units oral Tab) 50 Microgram By Mouth Every day Unchanged fluocinonide topical (fluocinonide Top 0.05% Crm 15 gram) See instructions 1 torrie Topical to scalp sunday through sunday, none on the weekend Unchanged furosemide (furosemide 20 mg Tab) See instructions TAKE ONE TABLET BY MOUTH DAILY Unchanged hydroxychloroquine (hydroxychloroquine 200 mg Tab) See instructions 200mg orally twice a day alternating with 200mg once a day Unchanged ketoconazole 2 Percent Topical Every day as needed for Rash Unchanged ketoconazole topical (ketoconazole Top 2% Shampoo) 1 Application Topical Every other day Unchanged levothyroxine (levothyroxine 50 mcg (0.05 mg) Tab) 1 Tablets By Mouth Every day Unchanged lisinopril (lisinopril 10 mg Tab) 1 Tablets By Mouth Every day Unchanged metronidazole topical (metronidazole topical 1% cream) 1 Application Topical 2 times a day use for rosacea Unchanged naproxen 500 Milligram By Mouth As needed for as needed for pain Unchanged potassium chloride (Potassium Chloride (Pmm-Eyux-Ttx 10) 10 mEq oral tablet, extended release) 1 Tablets By Mouth Every day Allergies Demerol (Nausea) Neurontin (Unknown) Percocet (Nausea) morphine (Nausea) sulfa drugs (Unknown) Problems Ongoing - Any problem that you are currently receiving treatment for. Anemia BMI 33.0-33.9,adult Fibromyalgia Hyperlipidemia Hypertension Hypoparathyroidism MGUS (monoclonal gammopathy of unknown significance) Nonsmoker Obesity due to excess calories Osteoarthritis of knee Osteoporosis Peripheral neuropathy Sjogren's syndrome SK (seborrheic keratosis) Vitamin D deficiency Historical - Any problem that you are no longer receiving treatment for. Breast cancer screening Hypothyroidism Patient Survey You may receive a survey via text or e-mail asking about your office visit. Please share your experience with us by completing your survey. We appreciate your feedback and thank you for choosing us for your care. Normal [facility] Family Medicine Office/Clini c Noteon 06-30-2024 Family Medicine Office/Clinic Note Family Medicine Office/Clinic Note Chief Complaint Follow up The patient presents for a follow-up on multiple chronic health conditions and medications. [facility] Staff Pt presents today for follow up Medicare Wellness scheduled 12/25/24 Patient is here for follow up on hypertension. How often are you checking your blood pressure? Daily What are your average readings? _130/80 Yearly BMP: _ BUN: 26 mg/dL High (12/31/23 09:20:00) Calcium Lvl: 10.2 mg/dL (12/31/23 09:20:00) Chloride: 106 mmol/L (12/31/23 09:20:00) CO2: 29 mmol/L (12/31/23 09:20:00) Creatinine: 0.9 mg/dL (12/31/23 09:20:00) eGFR: 68 mL/min/1.73 m2 (12/31/23 09:20:00) Glucose Lvl: 84 mg/dL (12/31/23 09:20:00) Potassium Lvl: 4.1 mmol/L (12/31/23 09:20:00) Sodium Lvl: 140 mmol/L (12/31/23 09:20:00) Referred back to Endo @ [facility] due to Sjogren's syndrome. Pt states she never heard anything. Has been following oncology @ [facility]. PET scan for MGUS. Not approved by insurance. Mammogram 08/24/23 Does need refill of potassium & lisinopril. History of Present Illness - The patient is a 74-year-old female presenting with multiple chronic conditions. - Peripheral polyneuropathy causing balance issues and requiring a cane. - Primary hypertension with stable but fluctuating home measurements. - GERD recently flared, controlled by antacids. - Hypoparathyroidism, requires further specialist review. - MGUS, under regular oncology evaluation. - Sjogren's syndrome prompting incomplete pain control measures. - Discussed weight management in light of obesity due to excess calorie intake. - Encouraged lifestyle modifications to assist with hypertension and overall health, including diet and exercise. Review of Systems PHQ Score Initial Depression Screen Score: 0 SCORE Physical Exam Vitals & Measurements T: 36.9 ???C(Tympanic) HR: 66(Peripheral) RR: 18 BP: 138/88 SpO2: 98% HT: 59 in HT: 150 cm WT: 75.1 kg WT: 165.567 lb BMI: 33.38 General: alert, no acute distress, reports feeling really tired ENMT: oral mucosa moist Cardiovascular: Regular rate and rhythm, normal peripheral perfusion, heart sounds good Respiratory: Lungs clear to auscultation, respirations non labored, lungs sound good Extremities: no deformity, no trauma, uses a cane due to falls and neuropathy Neurological: oriented x 4, level of consciousness appropriate for age, CN II-XII intact, motor strength equal & normal bilaterally, speech normal Abdomen: Soft, Non-tender, Non-distended, + Bowel sounds, reports a recent flare-up of GERD, using TUMS for relief Assessment/Plan 1. Hypoparathyroidism, unspecified hypoparathyroidism type (E20.9: Hypoparathyroidism, unspecified) - Referral to endocrinology for further assessment. Ordered: Body Mass Index (BMI) documented 3008F Current tobacco non-user 1036F Depression Screening Negative 3352F Discharge medications reconciled with current medications in outpatient record 1111F [facility] External Ambulatory Referral Influenza immunization status assessed 1030F MA Mamm Screen w/CAD if perf and 3D Oh Medication list documented in medical record 1159F Most recent diastolic blood pressure 80-89 mm Hg 3079F Most recent systolic blood pressure >= 140 mm Hg 3077F Patient screen for fall risk: no falls in last year or 1 fall with no injury in last year 1101F Review of all meds by a prescribing practitioner or clinical pharmacist documented in EHR 1160F Screening mammography documented and reviewed 3014F 2. Obesity due to excess calories (E66.09: Other obesity due to excess calories) Continue diet and exercise. Ordered: [facility] External Ambulatory Referral MA Mamm Screen w/CAD if perf and 3D Oh 3. BMI 33.0-33.9,adult (Z68.33: Body mass index [BMI] 33.0-33.9, adult) BMI education added Ordered: [facility] External Ambulatory Referral MA Mamm Screen w/CAD if perf and 3D Oh 4. Nonsmoker (Z78.9: Other specified health status) Please continue not to smoke and albuterol Ordered: [facility] External Ambulatory Referral MA Mamm Screen w/CAD if perf and 3D Oh 5. Primary hypertension (I10: Essential (primary) hypertension) - Medications to remain; promote self-checking of blood pressure. Ordered: [facility] External Ambulatory Referral MA Mamm Screen w/CAD if perf and 3D Oh 6. Mixed hyperlipidemia (E78.2: Mixed hyperlipidemia) - Labs look good. Ordered: MA Mamm Screen w/CAD if perf and 3D Oh 7. Vitamin D deficiency (E55.9: Vitamin D deficiency, unspecified) - Continue OTC medication as before. 8. MGUS (monoclonal gammopathy of unknown significance) (D47.2: Monoclonal gammopathy) - Continued twice-yearly oncology monitoring. 9. Sjogren's syndrome, with unspecified organ involvement (M35.00: Sjogren syndrome, unspecified) - Pain management discussed. 10. Peripheral polyneuropathy (G62.9: Polyneuropathy, unspecified) - Maintain current support via cane. 11. Gastro-esophageal reflux disease without esoph (more content not included)... Normal [facility] Comment on above: Result Comment: Elec tronically Signed By: Alejandro BRADFORD, Miguel Rainey\.br\Date and Time Signed: 06/30/24 09:03 EDT PROTEIN ELECTRO, RANDOM URIN Balbir 02-08-2024 ALBUMIN, URINE 25.3 % . [facility] [id number], URINE 3.4 % . [facility] [id number], URINE 7.9 % . [facility] BETA GLOBULIN, URINE 48 % . [facility] GAMMA GLOBULIN, URINE 15.3 % . [facility] M-SPIKE % Not Observed Not Observed [facility] PLEASE NOTE: Comment . [facility] Comment on above: Protein electrophore sis scan will follow via computer, mail, or biology adjunct instructor delivery. Performed at: - [facility] [id number] Propagation Manager: Kristian Castro PhD, Phone: [phone] Protein (U) [Mass/Vol] 4.2 mg/dL Not Estab. NO [facility] Beta 2 Microglobulin, Serumo n 02-06-2024 Beta 2 Microglobulin, Serum 2.3 mg/L Normal 0.6-2.4 [facility] Comment on above: Result Comment: [facility] Immulite 2000 Immunochemiluminometric assay (ICMA) Values obtained with different assay methods or kits cannot be used interchangeably. Results cannot be interpreted as absolute evidence of the presence or absence of malignant disease. Performed at: - [facility] [id number] Propagation Manager: Camila Mckeon MD, Phone: [phone] Performed By: #### I FE SERUM, UPE RAND SPE, B2-MICRO, KAPPA ####[facility] ,#### CMP, CBC ####[facility] [id number] CBC W Auto Differential pane l (Bld)on 02-06-2024 Basophils (Bld) [#/Vol] 0.1 10*3/uL 0.0 - 0.2 10*3/uL [facility] Basophils/100 WBC Manual cnt (Syn fld) 1 % . [facility] Eosinophils (Bld) [#/Vol] 0.1 10*3/uL 0.0 - 0.45 10*3/uL [facility] Eosinophils/100 WBC Manual cnt (Syn fld) 2.6 % . [facility] Erythrocyte distribution width (RBC) [Ratio] 13.1 % 11.9 - 15.3 % [facility] Hematocrit (Bld) [Volume fraction] 39.8 % 34.0 - 46.4 % [facility] Hemoglobin (Bld) [Mass/Vol] 13.3 g/dL 11.8 - 15.4 g/dL [facility] Interpretation and review of laboratory results Abnormal [facility] Lymphocytes (Bld) [#/Vol] 0.9 10*3/uL Low 1.00 - 4.8 10*3/uL [facility] Lymphocytes/100 WBC Manual cnt (Syn fld) 16.8 % . [facility] MCH (RBC) [Entitic mass] 30.8 pg 24.7 - 34.3 pg [facility] MCHC (RBC) [Mass/Vol] 33.3 g/dL 32.0 - 35.0 g/dL [facility] MCV (RBC) [Entitic vol] 92.5 fL 80 - 100 fL [facility] Monocytes (Bld) [#/Vol] 0.5 10*3/uL 0.0 - 0.8 10*3/uL [facility] Monocytes+Macrophages/1 00 WBC Manual cnt (Syn fld) 9.7 % . [facility] Neutrophils (Bld) [#/Vol] 3.9 10*3/uL 1.8 - 7.7 10*3/uL [facility] Neutrophils/100 WBC Manual cnt (Syn fld) 69.9 % . [facility] NRBC 0.1 /100{WBC} 0 - 0.5 /100{WBC} [facility] Platelet mean volume (Bld) [Entitic vol] 9.9 fL 6.3 - 10.7 fL [facility] Platelets (Bld) [#/Vol] 206 10*3/uL 150 - 450 10*3/uL [facility] RBC LM.HPF (Urine sed) [#/Area] 4.31 10*6/uL 3.60 - 5.00 10*6/uL [facility] WBC (Bld) [#/Vol] 5.6 10*3/uL 3.8 - 11.6 10*3/uL [facility] WBC LM.HPF (Urine sed) [#/Area] 5.6 10*3/uL 3.8 - 11.6 10*3/uL [facility] Complete Blood Count Auto Di ffon 02-06-2024 Basophils (Bld) [#/Vol] 0.1 10*3/uL Normal 0.0-0.2 [facility] Comment on above: Result Comment: PERF ORMED BY: [facility] [place] [address] PATHOLOGIST ORIENTATION AND MOBILITY INSTRUCTOR SHALONDA LEWIS M.D. Performed By: #### I FE SERUM, UPE RAND, SPE, B2-MICRO, KAPPA ####[facility] ,#### CMP, CBC ####[address] Basophils/100 WBC (Bld) 1.0 % Normal . [facility] Comment on above: Performed By: #### I FE SERUM, UPE RAND, SPE, B2-MICRO, KAPPA ####[facility] ,#### CMP, CBC ####[address] Eosinophils (Bld) [#/Vol] 0.1 10*3/uL Normal 0.0-0.45 [facility] Comment on above: Performed By: #### I FE SERUM, UPE RAND, SPE, B2-MICRO, KAPPA ####[facility] ,#### CMP, CBC ####[address] Eosinophils/100 WBC (Bld) 2.6 % Normal . [facility] Comment on above: Performed By: #### I FE SERUM, UPE RAND, SPE, B2-MICRO, KAPPA ####[facility] ,#### CMP, CBC ####[address] Erythrocyte distribution width (RBC) [Ratio] 13.1 % Normal 11.9-15.3 [facility] Comment on above: Performed By: #### I FE SERUM, UPE RAND, SPE, B2-MICRO, KAPPA ####[facility] ,#### CMP, CBC ####[address] [address] [place] Hematocrit (Bld) [Volume fraction] 39.8 % Normal 34.0-46.4 [facility] Comment on above: Performed By: #### I FE SERUM, UPE NIURKA, SPE, B2-MICRO, KAPPA ####[facility] ,#### CMP, CBC ####[address] Hemoglobin (Bld) [Mass/Vol] 13.3 g/dL Normal 11.8-15.4 [facility] Comment on above: Performed By: #### I FE SERUM, UPE RAND, SPE, B2-MICRO, KAPPA ####[facility] ,#### CMP, CBC ####[address] Lymphocytes (Bld) [#/Vol] 0.9 10*3/uL Low 1.00-4.8 [facility] Comment on above: Performed By: #### I FE SERUM, UPE NIURKA, SPE, B2-MICRO, KAPPA ####[facility] ,#### CMP, CBC ####[address] Lymphocytes/100 WBC (Bld) 16.8 % Normal . [facility] Comment on above: Performed By: #### I FE SERUM, UPE NIURKA, SPE, B2-MICRO, KAPPA ####[facility] ,#### CMP, CBC ####[address] MCH (RBC) [Entitic mass] 30.8 pg Normal 24.7-34.3 [facility] Comment on above: Performed By: #### I FE SERUM, UPE RAND, SPE, B2-MICRO, KAPPA ####[facility] ,#### CMP, CBC ####[address] MCV (RBC) [Entitic vol] 92.5 fL Normal 80-100 [facility] Comment on above: Performed By: #### I FE SERUM, UPE RAND, SPE, B2-MICRO, KAPPA ####[facility] ,#### CMP, CBC ####[address] Mean Corpuscular HGB Conc 33.3 g/dL Normal 32.0-35.0 [facility] Comment on above: Performed By: #### I FE SERUM, UPE RAND, SPE, B2-MICRO, KAPPA ####[facility] ,#### CMP, CBC ####[address] Monocytes (Bld) [#/Vol] 0.5 10*3/uL Normal 0.0-0.8 [facility] Comment on above: Performed By: #### I FE SERUM, UPE RAND, SPE, B2-MICRO, KAPPA ####[facility] ,#### CMP, CBC ####[address] Monocytes/100 WBC (Bld) 9.7 % Normal . [facility] Comment on above: Performed By: #### I FE SERUM, UPE RAND, SPE, B2-MICRO, KAPPA ####[facility] ,#### CMP, CBC ####[address] Neutrophils (Bld) [#/Vol] 3.9 10*3/uL Normal 1.8-7.7 [facility] Comment on above: Performed By: #### I FE SERUM, UPE RAND, SPE, B2-MICRO, KAPPA ####[facility] ,#### CMP, CBC ####[address] Neutrophils/100 WBC (Bld) 69.9 % Normal . [facility] Comment on above: Performed By: #### I FE SERUM, UPE RAND, SPE, B2-MICRO, KAPPA ####[facility] ,#### CMP, CBC ####[address] NRBC% 0.1 /100{WBC} Normal 0-0.5 [facility] Comment on above: Performed By: #### I FE SERUM, UPE RAND, SPE, B2-MICRO, KAPPA ####[facility] ,#### CMP, CBC ####[address] Platelet mean volume (Bld) [Entitic vol] 9.9 fL Normal 6.3-10.7 [facility] Comment on above: Performed By: #### I FE SERUM, UPE RAND, SPE, B2-MICRO, KAPPA ####[facility] ,#### CMP, CBC ####[address] Platelets (Bld) [#/Vol] 206 10*3/uL Normal 150-450 [facility] Comment on above: Performed By: #### I FE SERUM, UPE RAND, SPE, B2-MICRO, KAPPA ####[facility] ,#### CMP, CBC ####[address] RBC (Bld) [#/Vol] 4.31 10*6/uL Normal 3.60-5.00 [facility] Comment on above: Performed By: #### I FE SERUM, UPE RAND, SPE, B2-MICRO, KAPPA ####[facility] ,#### CMP, CBC ####[address] WBC (Bld) [#/Vol] 5.6 10*3/uL Normal 3.8-11.6 [facility] Comment on above: Performed By: #### I FE SERUM, UPE RAND, SPE, B2-MICRO, KAPPA ####[facility] ,#### CMP, CBC ####[address] [address] [facility] Comprehensive Metabolic Pane kourtney 02-06-2024 Albumin [Mass/Vol] 4.3 g/dL Normal 3.5-5.7 [facility] Comment on above: Performed By: #### I FE SERUM, UPE RAND, SPE, B2-MICRO, KAPPA ####[facility] ,#### CMP, CBC ####[place] [id number] [facility] Albumin/Globulin [Mass ratio] 1.5 {ratio} Normal [facility] Comment on above: Performed By: #### I FE SERUM, UPE RAND, SPE, B2-MICRO, KAPPA ####[facility] ,#### CMP, CBC ####[place] [id number] [facility] ALP [Catalytic activity/Vol] 86 U/L Normal 34-104 [facility] Comment on above: Performed By: #### I FE SERUM, UPE RAND, SPE, B2-MICRO, KAPPA ####[facility] ,#### CMP, CBC ####[place] [id number] [facility] ALT [Catalytic activity/Vol] 15 U/L Normal 7-52 [facility] Comment on above: Performed By: #### I FE SERUM, UPE RAND, SPE, B2-MICRO, KAPPA ####[facility] ,#### CMP, CBC ####[place] [id number] [facility] Anion gap [Moles/Vol] 13.1 mmol/L Normal 6.0-15.[address] [facility] Comment on above: Performed By: #### I FE SERUM, UPE RAND, SPE, B2-MICRO, KAPPA ####[facility] ,#### CMP, CBC ####[place] [id number] [facility] AST [Catalytic activity/Vol] 25 U/L Normal 13-39 [facility] Comment on above: Performed By: #### I FE SERUM, UPE RAND, SPE, B2-MICRO, KAPPA ####[facility] ,#### CMP, CBC ####[address] Bilirubin [Mass/Vol] 0.8 mg/dL Normal 0.3-1.0 [facility] Comment on above: Performed By: #### I FE SERUM, UPE RAND, SPE, B2-MICRO, KAPPA ####[facility] ,#### CMP, CBC ####[address] Calcium [Mass/Vol] 9.5 mg/dL Normal 8.6-10.3 [facility] Comment on above: Performed By: #### I FE SERUM, UPE RAND, SPE, B2-MICRO, KAPPA ####[facility] ,#### CMP, CBC ####[address] Chloride [Moles/Vol] 105 mmol/L Normal 98-107 [facility] Comment on above: Performed By: #### I FE SERUM, UPE RAND, SPE, B2-MICRO, KAPPA ####[facility] ,#### CMP, CBC ####[address] CO2 [Moles/Vol] 27.1 mmol/L Normal 21.0-31.0 [facility] Comment on above: Performed By: #### I FE SERUM, UPE RAND, SPE, B2-MICRO, KAPPA ####[facility] ,#### CMP, CBC ####[address] Creatinine [Mass/Vol] 0.84 mg/dL Normal 0.60-1.20 [facility] Comment on above: Performed By: #### I FE SERUM, UPE RAND, SPE, B2-MICRO, KAPPA ####[facility] ,#### CMP, CBC ####[address] Creatinine Clr Calc Pharmacy 53.31 Normal [facility] Comment on above: Result Comment: PERF ORMED BY: [facility] [address] [place] [address] PATHOLOGIST ORIENTATION AND MOBILITY INSTRUCTOR SHALONDA LEWIS M.D. Performed By: #### I FE SERUM, UPE RAND, SPE, B2-MICRO, KAPPA ####[facility] ,#### CMP, CBC ####[address] GFR/1.73 sq M.predicted MDRD (S/P/Bld) [Vol rate/Area] mL/min/{1.73_m2} Normal [facility] Comment on above: Performed By: #### I FE SERUM, UPE RAND, SPE, B2-MICRO, KAPPA ####[facility] ,#### CMP, CBC ####[address] Globulin (S) [Mass/Vol] 2.9 g/dL Normal [facility] Comment on above: Performed By: #### I FE SERUM, UPE RAND, SPE, B2-MICRO, KAPPA ####[facility] ,#### CMP, CBC ####[address] Glucose [Mass/Vol] 85 mg/dL Normal 70-100 [facility] Comment on above: Result Comment: [place] om Glucose Reference Range is dependent on time and content of last meal. Glucose of more than 200 mg/dL in a nonstressed, ambulatory subject supports the diagnosis of Diabetes Mellitus. ADA recommended reference range Performed By: #### I FE SERUM, UPE RAND, SPE, B2-MICRO, KAPPA ####[facility] ,#### CMP, CBC ####[address] Potassium [Moles/Vol] 4.2 mmol/L Normal 3.5-5.1 [facility] Comment on above: Performed By: #### I FE SERUM, UPE RAND, SPE, B2-MICRO, KAPPA ####[facility] ,#### CMP, CBC ####[address] Protein [Mass/Vol] 7.2 g/dL Normal 6.4-8.9 [facility] Comment on above: Performed By: #### I FE SERUM, UPE RAND, SPE, B2-MICRO, KAPPA ####[facility] ,#### CMP, CBC ####[address] Sodium [Moles/Vol] 141 mmol/L Normal 136-145 [facility] Comment on above: Performed By: #### I FE SERUM, UPE RAND, SPE, B2-MICRO, KAPPA ####[facility] ,#### CMP, CBC ####[address] Urea nitrogen [Mass/Vol] 28 mg/dL High 7-25 [facility] Comment on above: Performed By: #### I FE SERUM, UPE RAND, SPE, B2-MICRO, KAPPA ####[facility] ,#### CMP, CBC ####[address] Comprehensive metabolic pane kourtney 02-06-2024 Albumin [Mass/Vol] 4.3 g/dL 3.5 - 5.7 g/dL [facility] Albumin/Globulin [Mass ratio] 1.5 {ratio} [facility] ALP [Catalytic activity/Vol] 86 U/L 34 - 104 U/L [facility] ALT [Catalytic activity/Vol] 15 U/L 7 - 52 U/L [facility] Anion gap [Moles/Vol] 13.1 mmol/L 6.0 - 15.0 meq/L [facility] AST [Catalytic activity/Vol] 25 U/L 13 - 39 U/L [facility] Bilirubin [Mass/Vol] 0.8 mg/dL 0.3 - 1 .0 mg/dL [facility] Calcium [Mass/Vol] 9.5 mg/dL 8.6 - 10. 3 mg/dL [facility] Chloride [Moles/Vol] 105 mmol/L 98 - 10 7 mmol/L [facility] CO2 [Moles/Vol] 27.1 mmol/L 21.0 - 31.0 mmol/L [facility] Creatinine (U) [Mass/Vol] 0.84 mg/dL 0.60 - 1.20 mg/dL [facility] CREATININE CLR CALC PHARMACY 53.31 [facility] ESTIMATED GFR mL/Min [facility] Globulin (S) [Mass/Vol] 2.9 g/dL N [facility] Glucose [Mass/Vol] 85 mg/dL 70 - 100 mg/dL [facility] Comment on above: Random Glucose Refer ence Range is dependent on time and content of last meal. Glucose of more than 200 mg/dL in a nonstressed, ambulatory subject supports the diagnosis of Diabetes Mellitus. ADA recommended reference range Interpretation and review of laboratory results Abnormal [facility] Potassium [Moles/Vol] 4.2 mmol/L 3.5 - 5.1 mmol/L [facility] Protein [Mass/Vol] 7.2 g/dL 6.4 - 8.9 g/dL [facility] Sodium [Moles/Vol] 141 mmol/L 136 - 145 mmol/L [facility] Urea nitrogen [Mass/Vol] 28 mg/dL High 7 - 25 mg/dL [facility] Free K+L LT Chains, Qn, Son 02-06-2024 Free [place] Light Chains, S 26.2 mg/L High 3.3-19.4 [facility] Comment on above: Performed By: #### I FE SERUM, UPE RAND, SPE, B2-MICRO, KAPPA ####[facility] ,#### CMP, CBC ####[facility] [id number] Free Lambda Light Chains, S 80.3 mg/L High 5.7-26.3 [facility] Comment on above: Performed By: #### I FE SERUM, UPE RAND, SPE, B2-MICRO, KAPPA ####[facility] ,#### CMP, CBC ####[address] [place]/Lambda Ratio, S 0.33 Normal 0.26-1.65 [facility] Comment on above: Result Comment: Perf ormed at: CB - [facility] [address] [id number] Propagation Manager: Kristian Castro PhD, Phone: [phone] PERFORMED BY: [facility] [address] [place] [address] PATHOLOGIST ORIENTATION AND MOBILITY INSTRUCTOR SHALONDA LEWIS M.D. Performed By: #### I FE SERUM, UPE RAND, SPE, B2-MICRO, KAPPA ####[facility] ,#### CMP, CBC ####[address] Immunofixation,Serumon 02-05 Immunofixation, Serum Comment Critically abnormal . [facility] Comment on above: Result Comment: Immu nofixation shows IgG monoclonal protein with lambda light chain specificity. Performed By: #### I FE SERUM, UPE RAND, SPE, B2-MICRO, KAPPA ####[facility] ,#### CMP, CBC ####[address] Immunoglobulin A, Serum 79 mg/dL Normal 64-422 [facility] Comment on above: Performed By: #### I FE SERUM, UPE RAND, SPE, B2-MICRO, KAPPA ####[facility] ,#### CMP, CBC ####[address] Immunoglobulin G 1276 mg/dL Normal 586-1602 [facility] Comment on above: Performed By: #### I FE SERUM, UPE RAND, SPE, B2-MICRO, KAPPA ####[facility] ,#### CMP, CBC ####[address] Immunoglobulin M, Serum 46 mg/dL Normal 26-217 [facility] Comment on above: Result Comment: Perf ormed at: - [facility] [address] [id number] Propagation Manager: Kristian Castro PhD, Phone: [phone] Performed By: #### I FE SERUM, UPE RAND, SPE, B2-MICRO, KAPPA ####[facility] ,#### CMP, CBC ####[address] Protein Electro, Random Urin balbir 02-06-2024 Albumin, Urine 25.3 % Normal . [facility] Comment on above: Performed By: #### I FE SERUM, UPE RAND, SPE, B2-MICRO, KAPPA ####[facility] ,#### CMP, CBC ####[address] Kvltk-3-Iyuevjfo, Urine 3.4 % Normal . [facility] Comment on above: Performed By: #### I FE SERUM, UPE RAND, SPE, B2-MICRO, KAPPA ####[facility] ,#### CMP, CBC ####[address] Gyytl-0-Tvyilmnb, Urine 7.9 % Normal . [facility] Comment on above: Performed By: #### I FE SERUM, UPE RAND, SPE, B2-MICRO, KAPPA ####[facility] ,#### CMP, CBC ####[address] Beta Globulin, Urine 48.0 % Normal . [facility] Comment on above: Performed By: #### I FE SERUM, UPE RAND, SPE, B2-MICRO, KAPPA ####[facility] ,#### CMP, CBC ####[address] Gamma Globulin, Urine 15.3 % Normal . [facility] Comment on above: Performed By: #### I FE SERUM, UPE RAND, SPE, B2-MICRO, KAPPA ####[facility] ,#### CMP, CBC ####[address] M-David % Not Observed Normal Not Observed [facility] Comment on above: Performed By: #### I FE SERUM, UPE RAND, SPE, B2-MICRO, KAPPA ####[facility] ,#### CMP, CBC ####[address] Please Note: Comment Normal . [facility] Comment on above: Result Comment: Prot ein electrophoresis scan will follow via computer, mail, or biology adjunct instructor delivery. Performed at: [facility] [place] [address] Propagation Manager: Kristian Castro PhD, Phone: [phone] PERFORMED BY: [facility] [address] [place] [address] PATHOLOGIST ORIENTATION AND MOBILITY INSTRUCTOR SHALONDA LEWIS M.D. Performed By: #### I FE SERUM, UPE RAND, SPE, B2-MICRO, KAPPA ####[facility] ,#### CMP, CBC ####[address] Protein (U) [Mass/Vol] 4.2 mg/dL Normal Not Estab. Th [facility] Comment on above: Performed By: #### I FE SERUM, UPE RAND, SPE, B2-MICRO, KAPPA ####[facility] ,#### CMP, CBC ####[address] Protein Electrophoresis, Ser umon 02-06-2024 Albumin [Mass/Vol] 3.7 g/dL Normal 2.9-4.4 [facility] Comment on above: Performed By: #### I FE SERUM, UPE RAND, SPE, B2-MICRO, KAPPA ####[facility] ,#### CMP, CBC ####[address] Albumin/Globulin [Mass ratio] 1.2 {ratio} Normal 0.7-1.7 [facility] Comment on above: Performed By: #### I FE SERUM, UPE RAND, SPE, B2-MICRO, KAPPA ####[facility] ,#### CMP, CBC ####[place] [address] [place] Mwhdc-3-Kupargrx 0.3 g/dL Normal 0.0-0.4 [facility] Comment on above: Performed By: #### I FE SERUM, UPE RAND, SPE, B2-MICRO, KAPPA ####[facility] ,#### CMP, CBC ####[place] [address] [place] Lozct-8-Wvahxjyr 0.8 g/dL Normal 0.4-1.0 [facility] Comment on above: Performed By: #### I FE SERUM, UPE RAND, SPE, B2-MICRO, KAPPA ####[facility] ,#### CMP, CBC ####[place] [address] [place] Beta Globulin 1.0 g/dL Normal 0.7-1.3 [facility] Comment on above: Performed By: #### I FE SERUM, UPE RAND, SPE, B2-MICRO, KAPPA ####[facility] ,#### CMP, CBC ####[place] [address] [place] Gamma Globulin 1.2 g/dL Normal 0.4-1.8 [facility] Comment on above: Performed By: #### I FE SERUM, UPE RAND, SPE, B2-MICRO, KAPPA ####[facility] ,#### CMP, CBC ####[address] Globulin (S) [Mass/Vol] 3.2 g/dL Normal 2.2-3.9 [facility] Comment on above: Performed By: #### I FE SERUM, UPE RAND, SPE, B2-MICRO, KAPPA ####[facility] ,#### CMP, CBC ####[address] M-David 1.0 g/dL High Not Observed [facility] Comment on above: Performed By: #### I FE SERUM, UPE RAND, SPE, B2-MICRO, KAPPA ####[facility] ,#### CMP, CBC ####[address] Protein [Mass/Vol] 6.9 g/dL Normal 6.0-8.5 [facility] Comment on above: Performed By: #### I FE SERUM, UPE RAND, SPE, B2-MICRO, KAPPA ####[facility] ,#### CMP, CBC ####[address] SPE-Note Comment Normal . [facility] Comment on above: Result Comment: Prot ein electrophoresis scan will follow via computer, mail, or biology adjunct instructor delivery. Performed at: [facility] [id number] Propagation Manager: Kristian Castro PhD, Phone: [phone] Performed By: #### I FE SERUM, UPE RAND, SPE, B2-MICRO, KAPPA ####[facility] ,#### CMP, CBC ####[address] Ambulatory Visit Summaryon 1 03-08-2023 Ambulatory Visit Summary Ambulatory Visit Summary SINA PEREZ :1950 MRN:[id number] Visit Date:12/27/2023 Ambulatory Visit Instructions Your Diagnosis Encounter for annual wellness visit (AWV) in Medicare patient MGUS (monoclonal gammopathy of unknown significance) Hypoparathyroidism Hypertension Hyperlipidemia Other problems related to lifestyle Obesity due to excess calories Your Care Team Attending Physician - Miguel Allen MD Primary Care Physician - Miguel Allen MD This Is Your Medications List acetaminophen atorvastatin (atorvastatin 10 mg Tab) carboxymethylcellulose-sod ium hyaluronate cholecalciferol (Vitamin D3 2000 intl units oral Tab) fluocinonide topical (fluocinonide Top 0.05% Crm 15 gram) furosemide (furosemide 20 mg Tab) hydroxychloroquine (hydroxychloroquine 200 mg Tab) ketoconazole ketoconazole topical (ketoconazole Top 2% Shampoo) levothyroxine (levothyroxine 50 mcg (0.05 mg) Tab) lisinopril (lisinopril 10 mg Tab) metronidazole topical (metronidazole topical 1% cream) naproxen potassium chloride (Potassium Chloride (Cak-Hbdw-Dve 10) 10 mEq oral tablet, extended release) Procedures Performed Bone marrow biopsy (08/13/2023), Ablation, Biopsy of breast, Biopsy of thyroid, Bone graft, Bone marrow biopsy, Cancer of skin, Cataract, Colonoscopy, Internal fixation of fracture, Mohs surgery, Parathyroidectomy, Repair of tendon, BREANNA BSO - Total abdominal hysterectomy and bilateral salpingo-oophorectomy. Discharge Vitals Heart Rate (Peripheral) 74 Blood Pressure 138/82 Height 150 cm Height 59 in Weight 73.48 kg Weight 161.656 lb BMI 32.66 What to do next Scheduled Follow-Up Appointments Sunday 9:15 AM EDT With: Miguel Allen MD Where: [address] [address] 2024 9:30 AM EDT With: Where: [address] [address]- You Need to Complete the Following ALT, Blood, Routine collect, 12/27/23, Order for future visit, Lab Collect, Hyperlipidemia Encounter for annual wellness visit (AWV) in Medicare patient, Not Required, Print Label By Order Location AST, Blood, Routine collect, 12/27/23, Order for future visit, Lab Collect, Hyperlipidemia Encounter for annual wellness visit (AWV) in Medicare patient, Not Required, Print Label By Order Location Comprehensive Metabolic Panel, Blood, Routine collect, 12/27/23, Order for future visit, Lab Collect, Hypoparathyroidism Hypertension Hyperlipidemia Encounter for annual wellness visit (AWV) in Medicare patient, Not Required, Print Label By Order Location HCV Antibody RFX to Quant PCR, Blood, Routine collect, 12/27/23, Order for future visit, Lab Collect, Other problems related to lifestyle Encounter for annual wellness visit (AWV) in Medicare patient, Not Required, Print Label By Order Location Lipid Panel, Blood, Routine collect, 12/27/23, Order for future visit, Lab Collect, Hyperlipidemia Encounter for annual wellness visit (AWV) in Medicare patient, Not Required, Print Label By Order Location TSH With T4fr Reflex, Blood, Routine collect, 12/27/23, Order for future visit, Lab Collect, Hypoparathyroidism Encounter for annual wellness visit (AWV) in Medicare patient, Required & Missing, Print Label By Order Location Medications What How Much When Instructions Unchanged acetaminophen 650 Milligram As needed for as needed for pain Unchanged atorvastatin (atorvastatin 10 mg Tab) 1 Tablets By Mouth Every day Unchanged carboxymethylcellulose-sod ium hyaluronate See instructions 0.5% 1 drop both etes 4-12 times a day as needed Unchanged cholecalciferol (Vitamin D3 2000 intl units oral Tab) 50 Microgram By Mouth Every day Unchanged fluocinonide topical (fluocinonide Top 0.05% Crm 15 gram) See instructions 1 torrie Topical to scalp sunday through sunday, none on the weekend Unchanged furosemide (furosemide 20 mg Tab) See instructions TAKE ONE TABLET BY MOUTH DAILY Unchanged hydroxychloroquine (hydroxychloroquine 200 mg Tab) See instructions 200mg orally twice a day alternating with 200mg once a day Unchanged ketoconazole 2 Percent Topical Every day as needed for Rash Unchanged ketoconazole topical (ketoconazole Top 2% Shampoo) 1 Application Topical Every other day Unchanged levothyroxine (levothyroxine 50 mcg (0.05 mg) Tab) 1 Tablets By Mouth Every day Unchanged lisinopril (lisinopril 10 mg Tab) 1 Tablets By Mouth Every day Unchanged metronidazole topical (metronidazole topical 1% cream) 1 Application Topical 2 times a day use for rosacea Unchanged naproxen 500 Milligram By Mouth As needed for as needed for pain Unchanged potassium chloride (Potassium Chloride (Mlz-Auwe-Nem 10) 10 mEq oral tablet, extended release) 1 Tablets By Mouth Every day Allergies Demerol (Nausea) Neurontin (Unknown) Pe (more content not included)... Normal [facility] Medicine Office/Clini c Noteon 01-07-2024 Family Medicine Office/Clinic Note Family Medicine Office/Clinic Note Chief Complaint Medicare wellness subsequent History of Present Illness Covid-19, MERS, Ebola Screen *Contact With Person With Highly Contagious Disease Like Ebola/MERS/COVID-19 AND Have One or More of the Symptoms Below : No *Travel to a Country With Wide-Spread Ebola/MERS/COVID-19 in the Past 21 Days AND Have One or More of the Symptoms Below : No Patient Reported Covid-19 Testing : No *Verify Droplet, Contact Precautions for Ebola (Reference for CDC) : N/A *Verify Airborne, Droplet Precautions for MERS/COVID-19 : N/A Mana Canas 12/27/2023 13:10 EDT Medicare/Medicaid Summary Systolic Blood Pressure : 138 mmHg Diastolic Blood Pressure : 82 mmHg Blood Pressure Location : Left arm Blood Pressure Position : Sitting O2 Sat Resting/Exertion Alpha : Resting Peripheral Pulse Rate : 74 bpm SpO2 : 96 % Missael Mana 12/27/2023 13:43 EDT Chief Complaint : Medicare wellness subsequent Patient Counseled : Nutrition, Physical activity, Elevated BMI Height/Length Measured : 150 cm(Converted to: 4 ft 11 in, 59.06 in) Weight Measured : 73.48 kg(Converted to: 162 lb 0 Ounces, 161.996 lb) Body Mass Index Measured : 32.66 kg/m2 Height in Inches : 59 in Weight in Pounds : 161.656 lb Pain Present : Yes actual or suspected pain Primary Pain Comments : leg and back pain Mana Canas 12/27/2023 13:10 EDT Hearing and Vision Screening FT FT Whisper Test Comments : no issue or concern Vision Screen Comments : no issue or concern Mana Canas 12/27/2023 13:43 EDT Advance Directive FT Advance Directive : Yes Patient Wishes to Receive Further Information on Advance Directives : No Organ Donation Consent : Yes Mana Canas - 12/27/2023 13:43 EDT Procedures / Surgeries FT - Procedure History (As Of: 12/27/2023 13:47:21 EDT) Anesthesia Minutes: 0 ; Procedure Name: Colonoscopy ; Procedure Minutes: 0 ; Comments: 07/24/2022 7:46 EDT - Roopa Granda LPN L 2018 ; Last Reviewed Dt/Tm: 12/27/2023 13:45:03 EDT Anesthesia Minutes: 0 ; Procedure Name: Parathyroidectomy ; Procedure Minutes: 0 ; Comments: 07/24/2022 7:47 EDT - Roopa Granda LPN L 2017 ; Last Reviewed Dt/Tm: 12/27/2023 13:45:03 EDT Anesthesia Minutes: 0 ; Procedure Name: Biopsy of thyroid ; Procedure Minutes: 0 ; Comments: 07/24/2022 13:26 EDT - Roopa Granda LPN L X2 ; Last Reviewed Dt/Tm: 12/27/2023 13:45:03 EDT Anesthesia Minutes: 0 ; Procedure Name: Bone graft ; Procedure Minutes: 0 ; Comments: 07/24/2022 13:27 EDT - Elinor Granda LPNith L rt hip to right wrist ; Last Reviewed Dt/Tm: 12/27/2023 13:45:03 EDT Anesthesia Minutes: 0 ; Procedure Name: Cataract ; Procedure Minutes: 0 ; Comments: 07/24/2022 13:26 EDT - Elinor Granda LPNith L left eye ; Last Reviewed Dt/Tm: 12/27/2023 13:45:03 EDT Anesthesia Minutes: 0 ; Procedure Name: Biopsy of breast ; Procedure Minutes: 0 ; Comments: 07/24/2022 13:26 EDT - Elinor Granda LPNith L X2 ; Last Reviewed Dt/Tm: 12/27/2023 13:45:03 EDT Anesthesia Minutes: 0 ; Procedure Name: Internal fixation of fracture ; Procedure Minutes: 0 ; Comments: 07/24/2022 13:27 EDT - Jesus Alberto TIWARI Roopa L right wrist ; Last Reviewed Dt/Tm: 12/27/2023 13:45:03 EDT Anesthesia Minutes: 0 ; Procedure Name: Cancer of skin ; Procedure Minutes: 0 ; Comments: 07/24/2022 13:29 EDT - 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 ; Last Reviewed Dt/Tm: 12/27/2023 13:45:03 EDT Anesthesia Minutes: 0 ; Procedure Name: Repair of tendon ; Procedure Minutes: 0 ; Comments: 07/24/2022 13:28 EDT - Roopa Granda LPN right thumb then removal of plate and screws right wrist ; Last Reviewed Dt/Tm: 12/27/2023 13:45:03 EDT Anesthesia Minutes: 0 ; Procedure Name: Bone marrow biopsy ; Procedure Minutes: 0 ; Comments: 07/24/2022 13:28 EDT - Roopa Granda LPN 2015 ; Last Reviewed Dt/Tm: 12/27/2023 13:45:03 EDT Anesthesia Minutes: 0 ; Procedure Name: BREANNA BSO - Total abdominal hysterectomy and bilateral salpingo-oophorectomy ; Procedure Minutes: 0 ; Last Reviewed Dt/Tm: 12/27/2023 13:45:03 EDT Anesthesia Minutes: 0 ; Procedure Name: Mohs surgery ; Procedure Minutes: 0 ; Comments: 12/25/2022 13:11 EDT - Abiodun Hodges R facial/ left cheek, September 2022, Dr. Palumbo ; Last Reviewed Dt/Tm: 12/27/2023 13:45:03 EDT Procedure Dt/Tm: 08/13/2023 ; Provider: Tatiana Douglas MD; Anesthesia Minutes: 0 ; Procedure Name: Bone marrow biopsy ; Procedure Minutes: 0 ; Last Reviewed Dt/Tm: 12/27/2023 13:45:03 EDT Anesthesia Minutes: 0 ; Procedure Name: Ablation, nerves in the back ; Procedure Minutes: 0 ; Last Reviewed Dt/Tm: 12/27/2023 13:45:03 EDT Family History Family History (As Of: 12/27/2023 13:47:22 EDT) Mother: Relation: Mother ; Gender: Female ; Nomenclature: Stroke ; Value: Positive Grandparent: Relation: Grandparent ; Nomenclature: Stroke ; Value: Positive Aunt: Relation: Aunt ; Nomenclature: Stroke ; Value: Positive Gr (more content not included)... Normal [facility] Comment on above: Result Comment: Elec tronically Signed By: Miguel Allen MD\.br\Date and Time Signed: 01/07/24 12:45 EST\.br\Electronically Co-Signed By: Mana Canas\.br\Date and Time Co-Signed: 12/27/23 14:00 EDT .Interpretation:on HCV Ab IA Ql Comment Invalid Interpretation Code [facility] Comment on above: Result Comment: Not infected with HCV unless early or acute infection is suspected (which may be delayed in an immunocompromised individual), or other evidence exists to indicate HCV infection. Performed at: [facility] [id number] PhD Gloria Townsend Performed By: #### 2 [id number] #### [facility] [address] [place] [id number] HCV Antibody RFX to Quant PC Buck 01-02-2024 HCV IgG IA Ql Non-Reactive Invalid Interpretation Code Non Reactive [facility] Comment on above: Result Comment: Perf ormed at: [facility] [address] [id number] PhD Gloria Townsend Performed By: #### 2 [id number] #### [facility] [address] [place] [address] CHEMISTRYOrdered By: SYSTEM SYSTEM on 12-31-2023 Albumin [Mass/Vol] 4.1 g/dL Normal 3.3 - 5.0 gm/dL [facility] Albumin/Globulin [Mass ratio] 1.5 {ratio} Normal 1.1 - 2.2 [facility] ALP [Catalytic activity/Vol] 80 [iU]/d Normal 21 - 98 Int._Unit/ L [facility] ALT No additional P-5'-P [Catalytic activity/Vol] 17 [iU]/d Normal 6 - 46 Int._Unit/ L [facility] Anion gap [Moles/Vol] 9 mmol/L Normal 6 - 16 mEq/L [facility] AST [Catalytic activity/Vol] 28 [iU]/d Normal 5 - 43 Int._Unit/ L [facility] Bilirubin [Mass/Vol] 0.9 mg/dL Normal 0.0 - 1 .1 mg/dL [facility] Calcium [Mass/Vol] 10.2 mg/dL Normal 8.9 - 11. 1 mg/dL [facility] Chloride [Moles/Vol] 106 mmol/L Normal 101 - 1 11 mmol/L [facility] Cholesterol [Mass/Vol] 159 mg/dL Normal 120 - 200 mg/dL [facility] Cholesterol in HDL [Mass/Vol] 76 mg/dL Invalid Interpretation Code [facility] Comment on above: Result Comment: '>= 60 LOW RISK' '<= 40 HIGH RISK' Cholesterol in LDL [Mass/Vol] 66 mg/dL Normal <=129mg/dL [facility] Cholesterol in VLDL [Mass/Vol] 13 mg/dL Normal 7 - 40 mg/dL [facility] CO2 [Moles/Vol] 29 mmol/L Normal 21 - 31 mmol/L [facility] Creatinine [Mass/Vol] 0.9 mg/dL Normal 0.5 - 1.3 mg/dL [facility] eGFR 68 mL/min/1.73 m2 Normal >=59mL/min /1.73 m2 [facility] Globulin (S) [Mass/Vol] 2.7 g/dL Normal 1.4 - 4.0 gm/dL [facility] Glucose [Mass/Vol] 84 mg/dL Normal 55 - 199 mg/dL [facility] Potassium [Moles/Vol] 4.1 mmol/L Normal 3.5 - 5.3 mmol/L [facility] Protein [Mass/Vol] 6.8 g/dL Normal 6.0 - 7.8 gm/dL [facility] Sodium [Moles/Vol] 140 mmol/L Normal 135 - 145 mmol/L [facility] Triglyceride [Mass/Vol] 66 mg/dL Normal <=149mg/dL R em[facility] Chem TSH Qn 0.68 m[IU]/L Normal 0.34 - 5.60 mcIU/mL [facility] Urea nitrogen [Mass/Vol] 26 mg/dL High 5 - 21 mg/dL [facility] Urea nitrogen/Creatinine [Mass ratio] 29 mg/mg High 10 - 20 [facility] CMPon 12-31-2023 Albumin [Mass/Vol] 4.1 g/dL Normal 3.3-5.0 [facility] Comment on above: Performed By: #### 2 [id number] #### [facility] [address] [place] [address] Albumin/Globulin (S) [Mass conc ratio] 1.5 Normal 1.1-2.2 [facility] Comment on above: Performed By: #### 2 [id number] #### [facility] [address] [place] [address] ALP [Catalytic activity/Vol] 80 Int._Unit/L Normal 21-98 [facility] Comment on above: Performed By: #### 2 [id number] #### [facility] [address] [place] [address] ALT No additional P-5'-P [Catalytic activity/Vol] 17 Int._Unit/L Normal 6-46 [facility] Comment on above: Performed By: #### 2 [id number] #### [facility] [address] [place] [address] Anion gap [Moles/Vol] 9 mmol/L Normal 6-16 [facility] Comment on above: Performed By: #### 2 [id number] #### [facility] [address] [place] [address] AST [Catalytic activity/Vol] 28 Int._Unit/L Normal 5-43 [facility] Comment on above: Performed By: #### 2 [id number] #### [facility] [address] [place] [address] Bilirubin [Mass/Vol] 0.9 mg/dL Normal 0.0-1.1 [facility] Comment on above: Performed By: #### 2 [id number] #### [facility] [address] [place] [address] Calcium [Mass/Vol] 10.2 mg/dL Normal 8.9-11.1 [facility] Comment on above: Performed By: #### 2 [id number] #### [facility] [address] [place] [address] Chloride [Moles/Vol] 106 mmol/L Normal 101-111 [facility] Comment on above: Performed By: #### 2 [id number] #### [facility] [address] [place] [address] CO2 [Moles/Vol] 29 mmol/L Normal 21-31 [facility] Comment on above: Performed By: #### 2 [id number] #### [facility] [address] [place] [address] Creatinine [Mass/Vol] 0.9 mg/dL Normal 0.5-1.3 [facility] Comment on above: Performed By: #### 2 [id number] #### [facility] [address] [place] [address] Globulin (S) [Mass/Vol] 2.7 g/dL Normal 1.4-4.0 [facility] Comment on above: Performed By: #### 2 [id number] #### [facility] [address] [place] [address] Glucose [Mass/Vol] 84 mg/dL Normal 55-199 [facility] Comment on above: Performed By: #### 2 [id number] #### [facility] [address] [place] [address] Potassium [Moles/Vol] 4.1 mmol/L Normal 3.5-5.3 [facility] Comment on above: Performed By: #### 2 [id number] #### [facility] [address] [place] [address] Protein [Mass/Vol] 6.8 g/dL Normal 6.0-7.8 [facility] Comment on above: Performed By: #### 2 [id number] #### [facility] [address] [place] [address] Sodium [Moles/Vol] 140 mmol/L Normal 135-145 [facility] Comment on above: Performed By: #### 2 [id number] #### [facility] [address] [place] [address] Urea nitrogen [Mass/Vol] 26 mg/dL High 5-21 [facility] Comment on above: Performed By: #### 2 [id number] #### [facility] [address] [place] [address] Urea nitrogen/Creatinine [Mass ratio] 29 No Units High - [facility] Comment on above: Performed By: #### 2 [id number] #### [facility] [address] [place] [address] Lipid Panelon 12-31-2023 Cholesterol [Mass/Vol] 159 mg/dL Normal 120-200 Fi [facility] Comment on above: Performed By: #### 2 [id number] #### [facility] [address] [place] [address] Cholesterol in HDL [Mass/Vol] 76 mg/dL Invalid Interpretation Code [facility] Comment on above: Result Comment: '>= 60 LOW RISK' '<= 40 HIGH RISK' Performed By: #### 2 [id number] #### [facility] [address] [place] [address] Cholesterol in LDL [Mass/Vol] 66 mg/dL Normal <=129 [facility] Comment on above: Performed By: #### 2 [id number] #### [facility] [address] [place] [address] Cholesterol in VLDL [Mass/Vol] 13 mg/dL Normal 7-40 [facility] Comment on above: Performed By: #### 2 [id number] #### [facility] [address] [place] [address] Triglyceride [Mass/Vol] 66 mg/dL Normal <=149 [facility] Comment on above: Performed By: #### 2 [id number] #### [facility] [address] [place] [address] TSH With T4fr Reflexon 12-30 TSH Qn 0.68 m[IU]/L Normal 0.34-5.60 [facility] Comment on above: Performed By: #### 1 [id number] #### [facility] [address] [place] [address] eGFRon 12-31-2023 eGFR 68 mL/min/1.73 m2 Normal >=59 [facility] Comment on above: Performed By: #### 1 [id number] #### [facility] [address] [place] [address] Basophil percentageOrdered B y: Tatiana Douglas on 08-22-2023 Basophil percentage 100 ug/dL 80-158 [facility] Comment on above: This test was develo ped and its performance characteristicsdetermined by [facility]. It has not been cleared orapproved by the Food and Drug Administration. Detection Limit = 5Performed at: [address] [id number] Director: Camila Mckeon MD, Phone: [phone] Beta 2 Microglobulin, Serumo n 08-22-2023 Beta 2 Microglobulin, Serum 2.3 mg/L Normal 0.6-2.4 [facility] Comment on above: Result Comment: [facility] [employer] Managementulite 2000 Immunochemiluminometric assay (ICMA) Values obtained with different assay methods or kits cannot be used interchangeably. Results cannot be interpreted as absolute evidence of the presence or absence of malignant disease. Performed at: [address] [id number] Propagation Manager: Camila Mckeon MD, Phone: [phone] PERFORMED BY: [place] [address] PATHOLOGIST ORIENTATION AND MOBILITY INSTRUCTOR DOMI SMITH M.D. Performed By: #### C U, CERULOP, B2-MICRO #### [facility] , #### [id number] #### [address] Ceruloplasminon 08-22-2023 Ceruloplasmin 22.1 mg/dL Normal 19.0-39.0 [facility] Comment on above: Result Comment: Perf ormed at: [facility] [id number] Propagation Manager: Kristian Castro PhD, Phone: [phone] PERFORMED BY: [place] [address] PATHOLOGIST ORIENTATION AND MOBILITY INSTRUCTOR DOMI SMITH M.D. Performed By: #### C U, CERULOP, B2-MICRO #### [facility] , #### [id number] #### [facility] [address] [id number] [facility] Copperon 08-22-2023 Copper 100 ug/dL Normal 80-158 [facility] Comment on above: Result Comment: This test was developed and its performance characteristics determined by [employer]. It has not been cleared or approved by the Food and Drug Administration. Detection Limit = 5 Performed at: [address] [id number] Propagation Manager: Camila Mckeon MD, Phone: [phone] Performed By: #### C U, CERULOP, B2-MICRO #### [facility] , #### [id number] #### [facility] [address] [place] [address] Folate [Mass/volume] in Seru m or PlasmaOrdered By: Tatiana Douglas on 08-22-2023 Folate [Mass/Vol] 17.8 ng/mL >5.9 [facility] Comment on above: Folate reference ran ge: >5.9 ng/mlThe WHO technical consultation on folate and vitamin [id number] has determined that folate concentrations lessthan 4 ng/ml are considered deficient. Serum or plasma bgwv-[id number] globulin measurement (mass/volume)Ordered By: Tatiana Douglas on 08-22-2023 [id number] [Mass/Vol] 2.3 ug/mL 0.6-2.4 [facility] Comment on above: Siemens Immulite 200 0 Immunochemiluminometric assay (ICMA)Values obtained with different assay methods or kits cannotbe used interchangeably. Results cannot be interpreted asabsolute evidence of the presence or absence of malignantdisease.Performed at: [address] [id number] Director: Camila Mckeon MD, Phone: [phone] Serum or plasma ceruloplasmi n measurement (mass/volume)Ordered By: Tatiana Douglas on 08-22-2023 Ceruloplasmin [Mass/Vol] 22.1 mg/dL 19.0-39.0 [facility] Comment on above: Performed at: [address] [id number] Director: Kristian Castro PhD, Phone: [phone] Vit. B12/Folate Profileon Folate 17.8 ng/mL Normal >5.9 [facility] Comment on above: Result Comment: Destinee te reference range: >5.9 ng/ml The WHO technical consultation on folate and vitamin b12 deficiencies has determined that folate concentrations less than 4 ng/ml are considered deficient. PERFORMED BY: [place] [address] PATHOLOGIST ORIENTATION AND MOBILITY INSTRUCTOR DOMI SMITH M.D. Performed By: #### C U, CERULOP, B2-MICRO #### [facility] , #### [id number] #### [address] Vitamin B12 ser/plasOrdered By: Tatiana Douglas on 08-22-2023 Cobalamin (Vitamin B12) [Mass/Vol] 284 pg/mL Normal 180-914 [facility] Comment on above: Performed By: #### C U, CERULOP, B2-MICRO #### [facility] , #### [id number] #### [address] XR bone surveyon 08-22-2023 XR bone survey [facility] [place] [address] XRay Report Signed Patient: Sina Perez MR#: [id number] : 1950 Acct:[id number] Age/Sex: 73 / F ADM Date: 08/22/23 Loc: Room: Type: [facility] Attending Dr: Tatiana Douglas MD Copies to: [...] Ramu Rivera M.D.08/22/2023 11:53 AM Dictation Location: [place] [address] Transcribed By: [facility] 08/22/23 1153 Dictated By: Ramu Rivera DO 08/22/23 1150 Signed By: 08/22/23 1153 Normal [facility] Lab Reportson 08-16-2023 Lab Reports [id number] Normal [facility] Outside [facility] Correspo ndenceon 08-16-2023 Outside [facility] Correspondence [id number] Normal [facility] Ambulatory Visit Summaryon 0 08-09-2023 Ambulatory Visit Summary SINA PEREZ :1950 Visit Date:08/09/2023 Ambulatory Visit Instructions [...] 1% cream) naproxen potassium chloride (Potassium Chloride (Dhy-Jury-Gpc 10) 10 mEq oral tablet, extended release) [...] Follow-Up Appointments 2023 1:00 PM EDT Where: [facility] Cathy Normal [facility] Family Medicine Office/Clini c Noteon 08-09-2023 Family Medicine Office/Clinic Note HPI Staff Sina is a 73 year old female presenting for a yearly wellness Has AMW scheduled for 12/27/23 Health Maintenance: Colonoscopy: 2019 good for 10 years Dexa: ordered being done next week Mammo: due Pap: hysterectomy no longer gets them Last Labs: 07/24/22 questions/concerns: needs mammogram order ( cathy) M spike is up to 1, had a bone marrow test done yesterday and PET scan scheduled for august 21. If it's multiple myeloma might have stem cell and if it's m-kat ( plasma issue) they will discuss treatment for that. 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 Nonsmoker (Z78.9: Other specified health [...] DAILY, # 90 EA, Refills(s) 0, Pharmacy: [facility], 146, cm, 08/09/23 10:30:00 EDT, Height/Length Dosing, 70.6, kg, 08/09/23 10:30:00 EDT, Weight Dosing levothyroxine, 50 mcg = 1 tab(s), Oral, Daily, # 90 tab(s), Refills(s) 1, [facility], 146, cm, 08/09/23 10:30:00 EDT, Height/Length Dosing, 70.6, kg, 08/09/23 10:30:00 EDT, Weight Dosing lisinopril, 10 mg = 1 tab(s), Oral, Daily, # 90 tab(s), Refills(s) 1, Pharmacy: [facility] 1155, 146, cm, 08/09/23 10:30:00 EDT, Height/Length Dosing, 70.6, kg, 08/09/23 10:30:00 EDT, Weight Dosing potassium chloride, 10 mEq = 1 tab(s), Oral, Daily, # 90 tab(s), Refills(s) 1, Pharmacy: [facility] 1155, 146, cm, 08/09/23 10:30:00 EDT, Height/Length [...] 1 a (more content not included)... Normal [facility] Comment on above: Result Comment: Elec tronically Signed By: Alejandro BRADFORD, Miguel Noriega.br\Date and Time Signed: 08/09/23 11:03 EDT Activated partial thrombopla stin time (aPTT) in platelet poor plasma by coagulation aOrdered By: Tatiana Douglas on 08-08-2023 aPTT Coag (PPP) [Time] 32.9 s 25.1-36.5 [facility] Comment on above: A hematocrit value g reater than 55% may lead to inaccurate results in coagulation testing. Patients having hematocrit values >55% require a special collection tube for coagulation studies. Please contact the laboratory at [phone] for redraw instructions. Automated basophil %Ordered By: Tatiana Douglas on 08-08-2023 Basophils/100 WBC (Bld) 0.8 % Normal . [facility] Comment on above: Performed By: #### C BC ####[place] [id number] [place] [id number] [facility] Automated basophil countOrde red By: Tatiana Douglas on 08-08-2023 Basophils (Bld) [#/Vol] 0.0 10*3/uL Normal 0.0-0.2 [facility] Comment on above: Result Comment: PERF ORMED BY: [facility] [address] [place] [address] PATHOLOGIST ORIENTATION AND MOBILITY INSTRUCTOR DOMI SMITH M.D. Performed By: #### C BC ####[place] [id number] [place] [id number] [facility] Automated blood monocyte cou ntOrdered By: Tatiana Douglas on 08-08-2023 Monocytes (Bld) [#/Vol] 0.5 10*3/uL Normal 0.0-0.8 [facility] Comment on above: Performed By: #### C BC ####[address] Automated eosinophil %Ordere d By: Tatiana Douglas on 08-08-2023 Eosinophils/100 WBC (Bld) 2.2 % Normal . [facility] Comment on above: Performed By: #### C BC ####[address] Automated eosinophil countOr dered By: Tatiana Douglas on 08-08-2023 Eosinophils (Bld) [#/Vol] 0.1 10*3/uL Normal 0.0-0.45 [facility] Comment on above: Performed By: #### C BC ####[address] Automated monocyte %Ordered By: Tatiana Douglas on 08-08-2023 Monocytes/100 WBC (Bld) 9.4 % Normal . [facility] Comment on above: Performed By: #### C BC ####[address] Automated neutrophil %Ordere d By: Tatiana Douglas on 08-08-2023 Neutrophils/100 WBC (Bld) 62.6 % Normal . [facility] Comment on above: Performed By: #### C BC ####[address] guided bone marrow bx/asp iron 08-08-2023 CT guided bone marrow bx/aspir [facility] [address] [place] [address] [place] [address] CT Scan Report Signed Patient: Sina Perez MR#: [id number] 44 : 1950 Acct:[id number] Age/Sex: 73 / F ADM Date: 08/08/23 Loc: CT Room: Type: [facility] Attending Dr: Tatiana Douglas MD Copies to: [...] Tommy Mathur M.D.08/08/2023 3:03 PM Dictation Location: [place] [address] Transcribed By: [facility] 08/08/23 1503 Dictated By: Tommy Mathur II, MD 08/08/23 1501 Signed By: 08/08/23 1503 Normal [facility] Coagulation Profileon 2023 aPTT Coag (Bld) [Time] 32.9 s Normal 25.1-36.5 [facility] Comment on above: Order Comment: STAT FOR BX Result Comment: A he matocrit value greater than 55% may lead to inaccurate results in coagulation testing. Patients having hematocrit values >55% require a special collection tube for coagulation studies. Please contact the laboratory at [phone] for redraw instructions. PERFORMED BY: [address] [address] PATHOLOGIST ORIENTATION AND MOBILITY INSTRUCTOR DOMI SMITH M.D. Performed By: #### P P #### [address] Complete Blood Count Auto Di ffon 08-08-2023 Mean Corpuscular HGB Conc 33.6 g/dL Normal 32.0-35.0 [facility] Comment on above: Performed By: #### C BC ####[address] NRBC% 0.1 /100{WBC} Normal 0-0.5 [facility] Comment on above: Performed By: #### C BC ####[address] Erythrocyte distribution wid th [Ratio] by Automated countOrdered By: Tatiana Douglas on 08-08-2023 Erythrocyte distribution width (RBC) [Ratio] 13.6 % Normal 11.9-15.3 [facility] Comment on above: Performed By: #### C BC ####[address] Erythrocytes [#/volume] in B lood by Automated countOrdered By: Tatiana Douglas on 08-08-2023 RBC (Bld) [#/Vol] 4.38 10*6/uL Normal 3.60-5.00 [facility] Comment on above: Performed By: #### C BC ####[address] Hematocrit [Volume Fraction] of Blood by Automated countOrdered By: Tatiana Douglas on 08-08-2023 Hematocrit (Bld) [Volume fraction] 39.8 % Normal 34.0-46.4 [facility] Comment on above: Performed By: #### C BC ####[address] Hemoglobin [Mass/volume] in BloodOrdered By: Tatiana Douglas on 08-08-2023 Hemoglobin (Bld) [Mass/Vol] 13.4 g/dL Normal 11.8-15.4 [facility] Comment on above: Performed By: #### C BC ####[address] INR in Platelet poor plasma by Coagulation assayOrdered By: Tatiana Douglas on 08-08-2023 INR Coag (PPP) [Relative time] 0.9 {INR} Normal [facility] Comment on above: INR Therapeutic Rang [...] 4.5 Performed By: #### P P #### [address] 08-08-2023 L Specimen: [id number] Received: 08/08/23 Status: FERNANDO [facility] Num: [id number] Spec Type: Bone Marro Subm Dr: Tommy Mathur II, MD Tissues: A Bone Marrow Aspirate (Clot) (LT ILIAC CREST) B Bone Marrow Biopsy/Core (LT ILIAC CREST) Procedures: Peripheral Smr, Iron/2, HE/4, Gross/Micro L4/2, Bm Smear/2, Congo Red, AE1-AE3, CD138, CD20, CD3, CD34, CD56, Decalcification, IHC First AB, IHC Add AB, Bone Marrow TP, Iron smear/2, GIEMSA /7 Age/ Patient Sex Location Account Attending Physician Sina Perez 73/F CT [id number] Tatiana Douglas MD SPEC NUM: [id number] RECD: 08/08/23 STATUS: [facility] NUM: [id number] DARON: 08/08/[address]: Tommy Mathur II, MD ENTERED: 08/08/[address] [facility] [address]: Tatiana Douglas MD SPEC TYPE: Bone Marro DEPT: BM ORDERED: Peripheral Smr, Iron/2, HE/4, Gross/Micro L4/2, Bm Smear/2, Congo Red, AE1-AE3, CD138, CD20, CD3, CD34, CD56, Decalcification, IHC First AB, IHC Add AB, Bone Marrow TP, Iron smear/2, GIEMSA STN/7 ORDERED: Peripheral Smr, Iron/2, HE/4, Gross/Micro L4/2, Bm Smear/2, Congo Red, AE1-AE3, CD138, CD20, CD3, CD34, CD56, USS/12, Decalcification, IHC First AB, IHC Add AB, Bone Marrow TP, Iron smear/2, GIEMSA STN/7 Supplemental Report Addendum 1 Entered: 10/02/23 Congo red special stain is negative for amyloid. Addendum Signed (signature on file) Shalonda Lewis MD 10/02/23 1453 Pathological Diagnosis Bone Marrow, Iliac Crest (core Biopsy, Clot And Aspirate Smears): Normocellular bone marrow (for age) with adequate trilineage hematopoiesis and mild plasmacytosis consistent with monoclonal gammopathy of undetermined significance (MGUS). Specimen: [id number] Received: 08/08/23115 Status: FERNANDO [facility] Num: [id number] Spec Type: Bone Emile Jason Dr: Tommy Mathur II, MD Tissues: A Bone Marrow Aspirate (Clot) (LT ILIAC CREST) B Bone Marrow Biopsy/Core (LT ILIAC CREST) Procedures: Peripheral Smr, Iron/2, HE/4, Gross/Micro L4/2, Bm Smear/2, Congo Red, AE1-AE3, CD138, CD20, CD3, CD34, CD56, Decalcification, IHC First AB, IHC Add AB, Bone Marrow TP, Iron smear/2, GIEMSA STN/7 Patient: Sina Perez [id number] (Continued) Specimen: [id number] Received: 08/08/23 (Continued) Pathological Diagnosis (Continued) Signed (signature on file) Shalonda Lewis MD 08/14/23 1914 Specimen: [id number] Received: 08/08/23 Status: FERNANDO [facility] Num: [id number] Spec Type: Bone Carliero Eren Dr: Tommy Mathur II, MD Tissues: A Bone Marrow Aspirate (Clot) (LT ILIAC CREST) B Bone Marrow Biopsy/Core (LT ILIAC CREST) Procedures: Peripheral Smr, Iron/2, HE/4, Gross/Micro L4/2, Bm Smear/2, Congo Red, AE1-AE3, CD138, CD20, CD3, CD34, CD56, Decalcification, IHC First AB, IHC Add AB, Bone Marrow TP, Iron smear/2, GIEMSA STN/7 Patient: Sina Perez [id number] (Continued) Specimen: [id number] Received: 08/08/23-1157 (Continued) Pathological [...] stores. (more content not included)... Normal [facility] Leukocytes [#/volume] correc annie for nucleated erythrocytes in Blood by Automated counOrdered By: Tatiana Douglas on 08-08-2023 WBC corrected for nucl RBC Auto (Bld) [#/Vol] 5.7 10*3/uL 3.8-11.6 [facility] Leukocytes [#/volume] in Blo od by Automated countOrdered By: Tatiana Douglas on 08-08-2023 WBC (Bld) [#/Vol] 5.7 10*3/uL Normal 3.8-11.6 [facility] Comment on above: Performed By: #### C BC ####[address] Lymphocytes [#/volume] in Bl ood by Automated countOrdered By: Tatiana Douglas on 08-08-2023 Lymphocytes (Bld) [#/Vol] 1.4 10*3/uL Normal 1.00-4.8 [facility] Comment on above: Performed By: #### C BC ####[address] Lymphocytes/100 leukocytes i n Blood by Automated countOrdered By: Tatiana Douglas on 08-08-2023 Lymphocytes/100 WBC (Bld) 25.0 % Normal . [facility] Comment on above: Performed By: #### C BC ####[address] MCH [Entitic mass] by Automa annie countOrdered By: Tatiana Douglas on 08-08-2023 MCH (RBC) [Entitic mass] 30.5 pg Normal 24.7-34.3 [facility] Comment on above: Performed By: #### C BC ####[address] MCHC Auto (RBC) [Mass/Vol]Or dered By: Tatiana Douglas on 08-08-2023 MCHC (RBC) [Mass/Vol] 33.6 g/dL 32.0-35.0 [facility] MCV [Entitic volume] by Auto mated countOrdered By: Tatiana Douglas on 08-08-2023 MCV (RBC) [Entitic vol] 90.9 fL Normal 80-100 [facility] Comment on above: Performed By: #### C BC ####[address] Neutrophils [#/volume] in Bl ood by Automated countOrdered By: Tatiana Douglas on 08-08-2023 Neutrophils (Bld) [#/Vol] 3.6 10*3/uL Normal 1.8-7.7 [facility] Comment on above: Performed By: #### C BC ####[address] Nucleated erythrocytes [Pres ence] in Blood by Automated countOrdered By: Tatiana Douglas on 08-08-2023 Nucleated RBC Auto Ql (Bld) 0.1 /100{WBC} 0-0.5 [facility] Platelet mean volume [Entiti c volume] in Blood by Automated countOrdered By: Tatiana Douglas on 08-08-2023 Platelet mean volume (Bld) [Entitic vol] 9.4 fL Normal 6.3-10.7 [facility] Comment on above: Performed By: #### C BC ####[place] [id number] [facility] Platelets [#/volume] in Bloo d by Automated countOrdered By: Tatiana Douglas on 08-08-2023 Platelets (Bld) [#/Vol] 183 10*3/uL Normal 150-450 [facility] Comment on above: Performed By: #### C BC ####[place] [id number] [facility] Prothrombin time (PT)Ordered By: Tatiana Douglas on 08-08-2023 PT Coag (PPP) [Time] 10.7 s Normal 9.0-12.9 [facility] Comment on above: A hematocrit value g reater than 55% may lead to inaccurate results in coagulation testing. Patients having hematocrit values >55% require a special collection tube for coagulation studies. Please contact the laboratory at [phone] for redraw instructions. Order Comment: STAT FOR BX Result Comment: A he matocrit value greater than 55% may lead to inaccurate results in coagulation testing. Patients having hematocrit values >55% require a special collection tube for coagulation studies. Please contact the laboratory at [phone] for redraw instructions. Performed By: #### P P #### [facility] [address] Consultation Noteon 07-25-19 Consultation Note [id number] Normal [facility] Alanine aminotransferase [En zymatic activity/volume] in Serum or PlasmaOrdered By: Tatiana Douglas on 07-18-2023 ALT [Catalytic activity/Vol] 15 U/L Normal 7-52 [facility] Comment on above: Performed By: #### U PE RAND, KAPPA, SPE, MG SERUM #### [facility] , #### PROCRERAT, SCAN CBC, CMP #### [facility] [address] Albumin [Mass/volume] in Ser um or PlasmaOrdered By: Tatiana Douglas on 07-18-2023 Albumin [Mass/Vol] 3.9 g/dL Normal 2.9-4.4 [facility] Comment on above: Performed By: #### U PE RAND, KAPPA, SPE, MG SERUM ####[facility] ,#### PROCRERAT, SCAN CBC, CMP ####[facility] [id number] Albumin [Mass/volume] in Ser um or Plasma by Bromocresol green (BCG) dye binding methoOrdered By: Tatiana Douglas on 07-18-2023 Albumin BCG dye [Mass/Vol] 4.4 g/dL 3.5-5.7 [facility] Albumin/Protein.total in 24 hour Urine by ElectrophoresisOrdered By: Tatiana Misael on 07-18-2023 Albumin Elph (24H U) [Mass fraction] 23.6 % . [facility] Alkaline phosphatase [Enzyma tic activity/volume] in Serum or PlasmaOrdered By: Ttaiana Misael on 07-18-2023 ALP [Catalytic activity/Vol] 84 U/L Normal 34-104 [facility] Comment on above: Result Comment: PERF ORMED BY: [place] [address] PATHOLOGIST ORIENTATION AND MOBILITY INSTRUCTOR DOMI SMITH M.D. Performed By: #### U PE RAND, KAPPA, SPE, MG SERUM #### [facility] , #### PROCRERAT, SCAN CBC, CMP #### [facility] [address] Aspartate aminotransferase [ Enzymatic activity/volume] in Serum or PlasmaOrdered By: Tatiana Douglas on 07-18-2023 AST [Catalytic activity/Vol] 23 U/L Normal 13-39 [facility] Comment on above: Performed By: #### U PE RAND, KAPPA, SPE, MG SERUM #### [facility] , #### PROCRERAT, SCAN CBC, CMP #### [facility] [address] Automated basophil %Ordered By: Tatiana Douglas on 07-18-2023 Basophils/100 WBC (Bld) 0.7 % Normal . [facility] Comment on above: Performed By: #### U PE RAND, KAPPA, SPE, MG SERUM ####[facility] ,#### PROCRERAT, SCAN CBC, CMP ####[facility] [id number] [address] Automated basophil countOrde red By: Tatiana Douglas on 07-18-2023 Basophils (Bld) [#/Vol] 0.0 10*3/uL Normal 0.0-0.2 [facility] Comment on above: Performed By: #### U PE RAND, KAPPA, SPE, MG SERUM ####[facility] ,#### PROCRERAT, SCAN CBC, CMP ####[address] Automated blood monocyte cou ntOrdered By: Tatiana Misael on 07-18-2023 Monocytes (Bld) [#/Vol] 0.5 10*3/uL Normal 0.0-0.8 [facility] Comment on above: Performed By: #### U PE RAND, KAPPA, SPE, MG SERUM ####[facility] ,#### PROCRERAT, SCAN CBC, CMP ####[address] Automated eosinophil %Ordere d By: Tatiana Douglas on 07-18-2023 Eosinophils/100 WBC (Bld) 2.8 % Normal . [facility] Comment on above: Performed By: #### U PE RAND, KAPPA, SPE, MG SERUM ####[facility] ,#### PROCRERAT, SCAN CBC, CMP ####[address] Automated eosinophil countOr dered By: Tatiana Douglas on 07-18-2023 Eosinophils (Bld) [#/Vol] 0.2 10*3/uL Normal 0.0-0.45 [facility] Comment on above: Performed By: #### U PE RAND, KAPPA, SPE, MG SERUM ####[facility] ,#### PROCRERAT, SCAN CBC, CMP ####[address] Automated monocyte %Ordered By: Tatiana Douglas on 07-18-2023 Monocytes/100 WBC (Bld) 8.2 % Normal . [facility] Comment on above: Performed By: #### U PE RAND, KAPPA, SPE, MG SERUM ####[facility] ,#### PROCRERAT, SCAN CBC, CMP ####[facility] [place] [address] Automated neutrophil %Ordere d By: Tatiana Vicentese on 07-18-2023 Neutrophils/100 WBC (Bld) 69.5 % Normal . [facility] Comment on above: Performed By: #### U PE RAND, KAPPA, SPE, MG SERUM ####[facility] ,#### PROCRERAT, SCAN CBC, CMP ####[address] Bilirubin.total [Mass/volume ] in Serum or PlasmaOrdered By: Tatiana Misael on 07-18-2023 Bilirubin [Mass/Vol] 0.7 mg/dL Normal 0.3-1.0 [facility] Comment on above: Performed By: #### U PE RAND, KAPPA, SPE, MG SERUM #### [facility] , #### PROCRERAT, SCAN CBC, CMP #### [address] Edwina cells [Presence] in Blo od by Light microscopyOrdered By: Tatiana Misael on 07-18-2023 Edwina cells LM Ql (Bld) [facility] Calcium [Mass/volume] in Ser um or PlasmaOrdered By: Tatiana Douglas on 07-18-2023 Calcium [Mass/Vol] 9.7 mg/dL Normal 8.6-10.3 [facility] Comment on above: Performed By: #### U PE RAND, KAPPA, SPE, MG SERUM #### [facility] , #### PROCRERAT, SCAN CBC, CMP #### [facility] [address] [place] [address] Carbon dioxide, total [Moles /volume] in Serum or PlasmaOrdered By: Tatiana Douglas on 07-18-2023 CO2 [Moles/Vol] 30.4 mmol/L Normal 21.0-31.0 [facility] Comment on above: Performed By: #### U PE RAND, KAPPA, SPE, MG SERUM #### [facility] , #### PROCRERAT, SCAN CBC, CMP #### [facility] [address] [place] [address] Chloride [Moles/volume] in S ousmane or PlasmaOrdered By: Tatiana Misael on 07-18-2023 Chloride [Moles/Vol] 107 mmol/L Normal 98-107 [facility] Comment on above: Performed By: #### U PE RAND, KAPPA, SPE, MG SERUM #### [facility] , #### PROCRERAT, SCAN CBC, CMP #### [facility] [address] [place] [address] Comprehensive Metabolic Pane kourtney 07-18-2023 Albumin [Mass/Vol] 4.4 g/dL Normal 3.5-5.7 [facility] Comment on above: Performed By: #### U PE RAND, KAPPA, SPE, MG SERUM #### [facility] , #### PROCRERAT, SCAN CBC, CMP #### [facility] [address] [place] [address] GFR/1.73 sq M.predicted MDRD (S/P/Bld) [Vol rate/Area] mL/min/{1.73_m2} Normal [facility] Comment on above: Performed By: #### U PE RAND, KAPPA, SPE, MG SERUM #### [facility] , #### PROCRERAT, SCAN CBC, CMP #### [facility] [address] [place] [address] Creatinine [Mass/volume] in Serum or PlasmaOrdered By: Tatiana Misael on 07-18-2023 Creatinine [Mass/Vol] 0.85 mg/dL Normal 0.60-1.20 [facility] Comment on above: Performed By: #### U PE RAND, KAPPA, SPE, MG SERUM #### [facility] , #### PROCRERAT, SCAN CBC, CMP #### [facility] [address] Creatinine [Mass/volume] in UrineOrdered By: Tatiana Douglas on 07-18-2023 Creatinine (U) [Mass/Vol] 85.0 mg/dL [facility] Comment on above: No reference range e stablished Erythrocyte distribution wid th [Ratio] by Automated countOrdered By: Tatiana Douglas on 07-18-2023 Erythrocyte distribution width (RBC) [Ratio] 13.4 % Normal 11.9-15.3 [facility] Comment on above: Performed By: #### U PE RAND, KAPPA, SPE, MG SERUM ####[facility] ,#### PROCRERAT, SCAN CBC, CMP ####[facility] Erythrocytes [#/volume] in B lood by Automated countOrdered By: Tatiana Douglas on 07-18-2023 RBC (Bld) [#/Vol] 4.52 10*6/uL Normal 3.60-5.00 [facility] Comment on above: Performed By: #### U PE RAND, KAPPA, SPE, MG SERUM ####[facility] ,#### PROCRERAT, SCAN CBC, CMP ####[address] Free K+L LT Chains, Qn, Son 07-18-2023 Free [place] Light Chains, S 27.8 mg/L High 3.3-19.4 [facility] Comment on above: Performed By: #### U PE RAND, KAPPA, SPE, MG SERUM ####[facility] ,#### PROCRERAT, SCAN CBC, CMP ####[address] Free Lambda Light Chains, S 80.5 mg/L High 5.7-26.3 [facility] Comment on above: Performed By: #### U PE RAND, KAPPA, SPE, MG SERUM ####[facility] ,#### PROCRERAT, SCAN CBC, CMP ####[place] [id number] [address] [place]/Lambda Ratio, S 0.35 Normal 0.26-1.65 [facility] Comment on above: Result Comment: Perf ormed at: - [facility] [address] [id number] Propagation Manager: Kristian Castro PhD, Phone: [phone] PERFORMED BY: [facility] [address] [place] [address] PATHOLOGIST ORIENTATION AND MOBILITY INSTRUCTOR DOMI SMITH M.D. Performed By: #### U PE RAND, KAPPA, SPE, MG SERUM ####[facility] ,#### PROCRERAT, SCAN CBC, CMP ####[address] Gamma globulin/Protein.total in 24 hour Urine by ElectrophoresisOrdered By: Tatiana Douglas on 07-18-2023 Gamma globulin Elph (24H U) [Mass fraction] 14.6 % . [facility] Glucose [Mass/volume] in Ser um or PlasmaOrdered By: Tatiana Douglas on 07-18-2023 Glucose [Mass/Vol] 75 mg/dL Normal 70-100 [facility] Comment on above: ADA recommended refe rence rangeRandom Glucose Reference Range is dependent on time and content of last meal. Glucose of more than 200 mg/dL in a nonstressed, ambulatory subject supports the diagnosis of Diabetes Mellitus. Result Comment: [place] om Glucose Reference Range is dependent on time and content of last meal. Glucose of more than 200 mg/dL in a nonstressed, ambulatory subject supports the diagnosis of Diabetes Mellitus. ADA recommended reference range Performed By: #### U PE RAND, KAPPA, SPE, MG SERUM #### [facility] , #### PROCRERAT, SCAN CBC, CMP #### [address] Hematocrit [Volume Fraction] of Blood by Automated countOrdered By: Tatiana Douglas on 07-18-2023 Hematocrit (Bld) [Volume fraction] 41.4 % Normal 34.0-46.4 [facility] Comment on above: Performed By: #### U PE RAND, KAPPA, SPE, MG SERUM ####[facility] ,#### PROCRERAT, SCAN CBC, CMP ####[facility] [id number] Hemoglobin [Mass/volume] in BloodOrdered By: Tatiana Misael on 07-18-2023 Hemoglobin (Bld) [Mass/Vol] 13.7 g/dL Normal 11.8-15.4 [facility] Comment on above: Performed By: #### U PE RAND, KAPPA, SPE, MG SERUM ####[facility] ,#### PROCRERAT, SCAN CBC, CMP ####[address] IgA [Mass/volume] in Serum o r PlasmaOrdered By: Tatiana Douglas on 07-18-2023 IgA [Mass/Vol] 78 mg/dL 64-422 [facility] IgG [Mass/volume] in Serum o r PlasmaOrdered By: Tatiana Douglas on 07-18-2023 IgG [Mass/Vol] 1223 mg/dL [phone] [facility] IgM [Mass/volume] in Serum o r PlasmaOrdered By: Tatiana Douglas on 07-18-2023 IgM [Mass/Vol] 39 mg/dL 26-217 [facility] Comment on above: Performed at: [place] [id number] Director: Kristian Castro PhD, Phone: [phone] Immunofixation,Serumon 07-17 Immunofixation, Serum Abnormal . [facility] Comment on above: Result Comment: Immu nofixation shows IgG monoclonal protein with lambda light chain specificity. Performed By: #### U PE RAND, KAPPA, SPE, MG SERUM ####[facility] ,#### PROCRERAT, SCAN CBC, CMP ####[place] [id number] [address] Immunoglobulin A, Serum 78 mg/dL Normal 64-422 T [facility] Comment on above: Performed By: #### U PE RAND, KAPPA, SPE, MG SERUM ####[facility] ,#### PROCRERAT, SCAN CBC, CMP ####[place] [id number] [address] Immunoglobulin G 1223 mg/dL Normal [phone] [facility] Comment on above: Performed By: #### U PE RAND, KAPPA, SPE, MG SERUM ####[facility] ,#### PROCRERAT, SCAN CBC, CMP ####[address] Immunoglobulin M, Serum 39 mg/dL Normal 26-217 [facility] Comment on above: Result Comment: Perf ormed at: [facility] [address] [place], [place] [id number] Propagation Manager: Kristian Castro PhD, Phone: [phone] Performed By: #### U PE RAND, KAPPA, SPE, MG SERUM ####[facility] ,#### PROCRERAT, SCAN CBC, CMP ####[facility] [id number] [place] [address] Immunoglobulin light chains. kappa.free [Mass/volume] in SerumOrdered By: Tatiana Douglas on 07-18-2023 Immunoglobulin light chains.kappa.free (S) [Mass/Vol] 27.8 mg/L High 3.3-19.4 [facility] Immunoglobulin light chains. kappa.free/Immunoglobulin light chains.lambda.free [MassOrdered By: Tatiana Douglas on 07-18-2023 Immunoglobulin light chains.kappa.free/Immun oglobulin light chains.lambda.free (S) [Mass ratio] 0.35 0.26-1.65 [facility] Comment on above: Performed at: [employer] [facility] [address] [place] [id number] Director: Kristian Castro PhD, Phone: [phone] Immunoglobulin light chains. lambda.free [Mass/volume] in Serum or PlasmaOrdered By: Tatiana Douglas on 07-18-2023 Immunoglobulin light chains.lambda.free [Mass/Vol] 80.5 mg/L High 5.7-26.3 [facility] Laboratory - Chemistry and C hemistry - challengeOrdered By: Tatiana Douglas on 07-18-2023 Protein [Mass/Vol] 1.0 g/dL High Not Observed [facility] Leukocytes [#/volume] correc annie for nucleated erythrocytes in Blood by Automated counOrdered By: Tatiana Douglas on 07-18-2023 WBC corrected for nucl RBC Auto (Bld) [#/Vol] 5.8 10*3/uL 3.8-11.6 [facility] Leukocytes [#/volume] in Blo od by Automated countOrdered By: Tatiana Douglas on 07-18-2023 WBC (Bld) [#/Vol] 5.8 10*3/uL Normal 3.8-11.6 [facility] Comment on above: Performed By: #### U PE RAND, KAPPA, SPE, MG SERUM ####[facility] ,#### PROCRERAT, SCAN CBC, CMP ####[facility] [id number] Lymphocytes [#/volume] in Bl ood by Automated countOrdered By: Tatiana Douglas on 07-18-2023 Lymphocytes (Bld) [#/Vol] 1.1 10*3/uL Normal 1.00-4.8 [facility] Comment on above: Performed By: #### U PE RAND, KAPPA, SPE, MG SERUM ####[facility] ,#### PROCRERAT, SCAN CBC, CMP ####[facility] [id number] [place] [address] [place] Lymphocytes/100 leukocytes i n Blood by Automated countOrdered By: Tatiana Vicentese on 07-18-2023 Lymphocytes/100 WBC (Bld) 18.8 % Normal . [facility] Comment on above: Performed By: #### U PE RAND, KAPPA, SPE, MG SERUM ####[facility] ,#### PROCRERAT, SCAN CBC, CMP ####[address] MCH [Entitic mass] by Automa annie countOrdered By: Tatiana Misael on 07-18-2023 MCH (RBC) [Entitic mass] 30.3 pg Normal 24.7-34.3 [facility] Comment on above: Performed By: #### U PE RAND, KAPPA, SPE, MG SERUM ####[facility] ,#### PROCRERAT, SCAN CBC, CMP ####[address] MCHC Auto (RBC) [Mass/Vol]Or dered By: Tatiana Douglas on 07-18-2023 MCHC (RBC) [Mass/Vol] 33.0 g/dL 32.0-35.0 [facility] MCV [Entitic volume] by Auto mated countOrdered By: Tatiana Douglas on 07-18-2023 MCV (RBC) [Entitic vol] 91.8 fL Normal 80-100 F [facility] Comment on above: Performed By: #### U PE RAND, KAPPA, SPE, MG SERUM ####[facility] ,#### PROCRERAT, SCAN CBC, CMP ####[address] Neutrophils [#/volume] in Bl ood by Automated countOrdered By: Tatiana Douglas on 07-18-2023 Neutrophils (Bld) [#/Vol] 4.0 10*3/uL Normal 1.8-7.7 [facility] Comment on above: Performed By: #### U PE RAND, KAPPA, SPE, MG SERUM ####[facility] ,#### PROCRERAT, SCAN CBC, CMP ####[address] No Panel InformationOrdered By: Tatiana Douglas on 07-18-2023 Estimated GFR (CKD-EPI) > 60.0 mL/Min [facility] Creatinine Clearance (Chem N/A [facility] Protein Electrophoresis Note See comment . [facility] Comment on above: Protein electrophore sis scan will follow via computer,mail, or biology adjunct instructor delivery.Performed at: [facility] [employer] [id number] Director: Kristian Castro PhD, Phone: [phone] Serum Immunofixation See comment Abnormal . [facility] Comment on above: Immunofixation shows IgG monoclonal protein with lambdalight chain specificity. Urine Random Prot Electrophor Note See comment . [facility] Comment on above: Protein electrophore sis scan will follow via computer,mail, or biology adjunct instructor delivery.Performed at: [facility] [place], [place] [id number] Director: Kristian Castro PhD, Phone: [phone] Nucleated erythrocytes [Pres ence] in Blood by Automated countOrdered By: Tatiana Douglas on 07-18-2023 Nucleated RBC Auto Ql (Bld) 0.0 /100{WBC} 0-0.5 [facility] Platelet adequacy [Presence] in Blood by Light microscopyOrdered By: Tatiana Douglas on 07-18-2023 Platelets LM Ql (Bld) Normal Normal [facility] Platelet mean volume [Entiti c volume] in Blood by Automated countOrdered By: Tatiana Douglas on 07-18-2023 Platelet mean volume (Bld) [Entitic vol] 9.4 fL Normal 6.3-10.7 [facility] Comment on above: Performed By: #### U PE RAND, KAPPA, SPE, MG SERUM ####[facility] ,#### PROCRERAT, SCAN CBC, CMP ####[facility] [id number] Platelet morphology finding [Identifier] in BloodOrdered By: Tatiana Douglas on 07-18-2023 Platelet morphology finding Nom (Bld) N/A [facility] Platelets Large [Presence] i n Blood by Light microscopyOrdered By: Tatiana Douglas on 07-18-2023 Platelets Large LM Ql (Bld) Slight [facility] Platelets [#/volume] in Bloo d by Automated countOrdered By: Tatiana Douglas on 07-18-2023 Platelets (Bld) [#/Vol] 205 10*3/uL Normal 150-450 [facility] Comment on above: Performed By: #### U PE RAND, KAPPA, SPE, MG SERUM ####[facility] ,#### PROCRERAT, SCAN CBC, CMP ####[facility] Poikilocytosis [Presence] in Blood by Light microscopyOrdered By: Tatiana Douglas on 07-18-2023 Poikilocytosis LM Ql (Bld) [facility] Polychromasia [Presence] in Blood by Light microscopyOrdered By: Tatiana Douglas on 07-18-2023 Polychromasia LM Ql (Bld) [facility] Potassium [Moles/volume] in Serum or PlasmaOrdered By: Tatiana Douglas on 07-18-2023 Potassium [Moles/Vol] 4.2 mmol/L Normal 3.5-5.1 [facility] Comment on above: Performed By: #### U PE RAND, KAPPA, SPE, MG SERUM #### [facility] , #### PROCRERAT, SCAN CBC, CMP #### [facility] Ctr [address] Protein Creat Ratio Ur Rando mon 07-18-2023 Creatinine, Urine (Random) 85.0 mg/dL Normal [facility] Comment on above: Result Comment: No r eference range established Performed By: #### U PE RAND, KAPPA, SPE, MG SERUM #### [facility] , #### PROCRERAT, SCAN CBC, CMP #### [facility] Ctr [address] [place] [address] [place] Protein (U) [Mass/Vol] 7 mg/dL Normal 0-9 [facility] Comment on above: Performed By: #### U PE RAND, KAPPA, SPE, MG SERUM #### [facility] , #### PROCRERAT, SCAN CBC, CMP #### [facility] Ctr [address] [place] [address] Urine Protein/Creatinine Ratio 82 mg/g{Cre} Normal 0-200 [facility] Comment on above: Result Comment: PERF ORMED BY: [place] [address] PATHOLOGIST ORIENTATION AND MOBILITY INSTRUCTOR DOMI SMITH M.D. Performed By: #### U PE RAND, KAPPA, SPE, MG SERUM #### [facility] , #### PROCRERAT, SCAN CBC, CMP #### [address] Protein Electro, Random Urin balbir 07-18-2023 Albumin, Urine 23.6 % Normal . [facility] Comment on above: Performed By: #### U PE RAND, KAPPA, SPE, MG SERUM ####[facility] ,#### PROCRERAT, SCAN CBC, CMP ####[address] Ulcqc-4-Duwmjnjx, Urine 6.3 % Normal . T [facility] Comment on above: Performed By: #### U PE RAND, KAPPA, SPE, MG SERUM ####[facility] ,#### PROCRERAT, SCAN CBC, CMP ####[place] [address] [place] Mpstv-0-Esfrqrdl, Urine 14.1 % Normal . [facility] Comment on above: Performed By: #### U PE RAND, KAPPA, SPE, MG SERUM ####[facility] ,#### PROCRERAT, SCAN CBC, CMP ####[place] [address] [place] Beta Globulin, Urine 41.3 % Normal . [facility] Comment on above: Performed By: #### U PE RAND, KAPPA, SPE, MG SERUM ####[facility] ,#### PROCRERAT, SCAN CBC, CMP ####[address] Gamma Globulin, Urine 14.6 % Normal . [facility] Comment on above: Performed By: #### U PE RAND, KAPPA, SPE, MG SERUM ####[facility] ,#### PROCRERAT, SCAN CBC, CMP ####[address] M-David % Not Observed Normal Not Observed [facility] Comment on above: Performed By: #### U PE RAND, KAPPA, SPE, MG SERUM ####[facility] ,#### PROCRERAT, SCAN CBC, CMP ####[address] Please Note: Normal . [facility] Comment on above: Result Comment: Prot ein electrophoresis scan will follow via computer, mail, or biology adjunct instructor delivery. Performed at: [place] [address] Propagation Manager: Kristian Castro PhD, Phone: [phone] PERFORMED BY: [facility] [address] [place] [address] PATHOLOGIST ORIENTATION AND MOBILITY INSTRUCTOR DOMI SMITH M.D. Performed By: #### U PE RAND, KAPPA, SPE, MG SERUM ####[facility] ,#### PROCRERAT, SCAN CBC, CMP ####[address] Protein Electrophoresis, Ser umon 07-18-2023 Dqzvb-8-Hoamzcfd 0.2 g/dL Normal 0.0-0.4 [facility] Comment on above: Performed By: #### U PE RAND, KAPPA, SPE, MG SERUM ####[facility] ,#### PROCRERAT, SCAN CBC, CMP ####[address] Vdjas-4-Srukfqxo 0.7 g/dL Normal 0.4-1.0 [facility] Comment on above: Performed By: #### U PE RAND, KAPPA, SPE, MG SERUM ####[facility] ,#### PROCRERAT, SCAN CBC, CMP ####[address] Beta Globulin 0.9 g/dL Normal 0.7-1.3 [facility] Comment on above: Performed By: #### U PE RAND, KAPPA, SPE, MG SERUM ####[facility] ,#### PROCRERAT, SCAN CBC, CMP ####[address] Gamma Globulin 1.2 g/dL Normal 0.4-1.8 [facility] Comment on above: Performed By: #### U PE RAND, KAPPA, SPE, MG SERUM ####[facility] ,#### PROCRERAT, SCAN CBC, CMP ####[address] M-David 1.0 g/dL High Not Observed [facility] Comment on above: Performed By: #### U PE RAND, KAPPA, SPE, MG SERUM ####[facility] ,#### PROCRERAT, SCAN CBC, CMP ####[address] SPE-Note Normal . [facility] Comment on above: Result Comment: Prot ein electrophoresis scan will follow via computer, mail, or biology adjunct instructor delivery. Performed at: - [address] [id number] Propagation Manager: Kristian Castro PhD, Phone: [phone] Performed By: #### U PE RAND, KAPPA, SPE, MG SERUM ####[facility] ,#### PROCRERAT, SCAN CBC, CMP ####[address] Protein [Mass/volume] in Ser um or PlasmaOrdered By: Tatiana Douglas on 07-18-2023 Protein [Mass/Vol] 7.1 g/dL Normal 6.4-8.9 [facility] Comment on above: Performed By: #### U PE RAND, KAPPA, SPE, MG SERUM #### [facility] , #### PROCRERAT, SCAN CBC, CMP #### [facility] C[facility] [address] Protein [Mass/Vol] 6.9 g/dL Normal 6.0-8.5 [facility] Comment on above: Performed By: #### U PE RAND, KAPPA, SPE, MG SERUM ####[facility] ,#### PROCRERAT, SCAN CBC, CMP ####[facility] [address] [place] [address] Protein [Mass/volume] in Uri neOrdered By: Tatiana Douglas on 07-18-2023 Protein (U) [Mass/Vol] 6.3 mg/dL Normal Not Estab. [facility] Comment on above: Performed By: #### U PE RAND, KAPPA, SPE, MG SERUM ####[facility] ,#### PROCRERAT, SCAN CBC, CMP ####[facility] [address] [place] [address] Protein.monoclonal/Protein.t otal in 24 hour Urine by ElectrophoresisOrdered By: Tatiana Douglas on 07-18-2023 Protein.monoclonal Elph (24H U) [Mass fraction] Not observed % Not Observed [facility] RBC morphologyOrdered By: Am deacon Douglas on 07-18-2023 RBC morphology finding Nom (Bld) N/A [facility] Red blood cell stomatocyte d etectionOrdered By: Tatiana Douglas on 07-18-2023 Stomatocytes LM Ql (Bld) Slight [facility] Scan and CBCon 07-18-2023 Crenated RBC Slight Normal [facility] Comment on above: Performed By: #### U PE RAND, KAPPA, SPE, MG SERUM ####[facility] ,#### PROCRERAT, SCAN CBC, CMP ####[address] Large Platelets Slight Normal [facility] Comment on above: Result Comment: PERF ORMED BY: [facility] [place] [address] PATHOLOGIST ORIENTATION AND MOBILITY INSTRUCTOR DOMI SMITH M.D. Performed By: #### U PE RAND, KAPPA, SPE, MG SERUM ####[facility] ,#### PROCRERAT, SCAN CBC, CMP ####[address] Mean Corpuscular HGB Conc 33.0 g/dL Normal 32.0-35.0 [facility] Comment on above: Performed By: #### U PE RAND, KAPPA, SPE, MG SERUM ####[facility] ,#### PROCRERAT, SCAN CBC, CMP ####[address] NRBC% 0.0 /100{WBC} Normal 0-0.5 [facility] Comment on above: Performed By: #### U PE RAND, KAPPA, SPE, MG SERUM ####[facility] ,#### PROCRERAT, SCAN CBC, CMP ####[address] Platelet Estimate Normal Normal Normal [facility] Comment on above: Performed By: #### U PE RAND, KAPPA, SPE, MG SERUM ####[facility] ,#### PROCRERAT, SCAN CBC, CMP ####[address] Poikilocytosis Slight Normal [facility] Comment on above: Performed By: #### U PE RAND, KAPPA, SPE, MG SERUM ####[facility] ,#### PROCRERAT, SCAN CBC, CMP ####[address] Polychromasia Slight Normal [facility] Comment on above: Performed By: #### U PE RAND, KAPPA, SPE, MG SERUM ####[facility] ,#### PROCRERAT, SCAN CBC, CMP ####[address] Stomatocytes Slight Normal [facility] Comment on above: Performed By: #### U PE RAND, KAPPA, SPE, MG SERUM ####[facility] ,#### PROCRERAT, SCAN CBC, CMP ####[address] Serum globulin measurement ( mass/volume)Ordered By: Tatiana Douglas on 07-18-2023 Globulin (S) [Mass/Vol] 3.0 g/dL Normal 2.2-3.9 [facility] Comment on above: Performed By: #### U PE RAND, KAPPA, SPE, MG SERUM ####[facility] ,#### PROCRERAT, SCAN CBC, CMP ####[address] Serum globulin measurement b y calculation (mass/volume)Ordered By: Tatiana Douglas on 07-18-2023 Globulin (S) [Mass/Vol] 2.7 g/dL Normal F [facility] Comment on above: Performed By: #### U PE RAND, KAPPA, SPE, MG SERUM #### [facility] , #### PROCRERAT, SCAN CBC, CMP #### [facility] [address] Serum or plasma albumin/glob ulin mass ratioOrdered By: Tatiana Douglas on 07-18-2023 Albumin/Globulin [Mass ratio] 1.6 {ratio} Normal [facility] Comment on above: Performed By: #### U PE RAND, KAPPA, SPE, MG SERUM #### [facility] , #### PROCRERAT, SCAN CBC, CMP #### [facility] C[facility] [address] Albumin/Globulin [Mass ratio] 1.3 {ratio} Normal 0.7-1.7 [facility] Comment on above: Performed By: #### U PE RAND, KAPPA, SPE, MG SERUM ####[facility] ,#### PROCRERAT, SCAN CBC, CMP ####[facility] [id number] Serum or plasma alpha 1 glob ulin measurement by electrophoresis (mass/volume)Ordered By: Tatiana Douglas on 07-18-2023 Alpha 1 globulin Elph [Mass/Vol] 0.2 g/dL 0.0-0.4 [facility] Serum or plasma alpha 2 glob ulin measurement by electrophoresis (mass/volume)Ordered By: Tatiana Douglas on 07-18-2023 Alpha 2 globulin Elph [Mass/Vol] 0.7 g/dL 0.4-1.0 [facility] Serum or plasma anion gap de terminationOrdered By: Tatiana Douglas on 07-18-2023 Anion gap [Moles/Vol] 6.8 mmol/L Normal 6.0-15.0 [facility] Comment on above: Performed By: #### U PE RAND, KAPPA, SPE, MG SERUM #### [facility] , #### PROCRERAT, SCAN CBC, CMP #### [facility] C[facility] [address] Serum or plasma beta globuli n measurement by electrophoresis (mass/volume)Ordered By: Tatiana Douglas on 07-18-2023 Beta globulin Elph [Mass/Vol] 0.9 g/dL 0.7-1.3 [facility] Serum or plasma gamma globul in measurement by electrophoresis (mass/volume)Ordered By: Tatiana Douglas on 07-18-2023 Gamma globulin Elph [Mass/Vol] 1.2 g/dL 0.4-1.8 [facility] Sodium [Moles/volume] in Ser um or PlasmaOrdered By: Tatiana Douglas on 07-18-2023 Sodium [Moles/Vol] 140 mmol/L Normal 136-145 [facility] Comment on above: Performed By: #### U PE RAND, KAPPA, SPE, MG SERUM #### [facility] , #### PROCRERAT, SCAN CBC, CMP #### [facility] [address] [place] [address] [place] Urea nitrogen [Mass/volume] in Serum or PlasmaOrdered By: Tatiana Douglas on 07-18-2023 Urea nitrogen [Mass/Vol] 32 mg/dL High 7-25 [facility] Comment on above: Performed By: #### U PE RAND, KAPPA, SPE, MG SERUM #### [facility] , #### PROCRERAT, SCAN CBC, CMP #### [facility] C[facility] [address] Urine alpha 1 globulin/total protein by electrophoresisOrdered By: Tatiana Douglas on 07-18-2023 Alpha 1 globulin Elph (U) [Mass fraction] 6.3 % . [facility] Urine alpha 2 globulin/total protein ratio by electrophoresisOrdered By: Tatiana Douglas on 07-18-2023 Alpha 2 globulin Elph (U) [Mass fraction] 14.1 % . [facility] Urine beta globulin measurem ent by electrophoresis (mass/volume)Ordered By: Tatiana Douglas on 07-18-2023 Beta globulin Elph (U) [Mass/Vol] 41.3 % . [facility] Urine protein/creatinine rat ioOrdered By: Tatiana Douglas on 07-18-2023 Protein/Creatinine (U) [Ratio] 82 mg/g{Cre} 0-200 [facility] C3 and C4 COMPLEMENTon 06-22 Complement C3, Serum 149 mg/dL Normal 82-167 [facility] Comment on above: Performed By: #### C ROMEO #### [facility] [address] [place] [address] [address] Yaneth Walton Complement C4, Serum 31 mg/dL Normal 12-38 [facility] Comment on above: Performed By: #### C ROMEO #### [facility] [address] [place] [address] Dr. Yaneth Walton CBC AUTO DIFFon 06-21-2022 BASO # 0.0 103/ul Normal 0.0-0.1 [facility] Comment on above: Performed By: #### C BC #### [facility] [address] [place] [address] Dr. Yaneth Walton Basophils/100 WBC (Bld) 0.6 % Normal 0.2-2.0 [facility] Comment on above: Performed By: #### C BC #### [facility] [address] [place] [address] Dr. Yaneth Walton EO # 0.1 103/ul Normal 0.0-0.7 [facility] Comment on above: Performed By: #### C BC #### [facility] [address] [place] [address] Dr. Yaneth Walton Eosinophils/100 WBC (Bld) 2.8 % Normal 0.9-7.0 [facility] Comment on above: Performed By: #### C BC #### [facility] [address] [place] [address] Dr. Yaneth Walton Erythrocyte distribution width (RBC) [Ratio] 11.9 % Normal 11.0-15.0 [facility] Comment on above: Performed By: #### C BC #### [facility] [address] [place] [address] Dr. Yaneth Walton Hematocrit (Bld) [Volume fraction] 40.3 % Normal 36.0-48.0 [facility] Comment on above: Performed By: #### C BC #### [facility] [address] [place] [address] Dr. Yaneth Walton Hemoglobin (Bld) [Mass/Vol] 13.3 g/dL Normal 12.0-16.0 [facility] Comment on above: Performed By: #### C BC #### [facility] [address] [place] [address] Dr. Yaneth Walton IG # 0.01 10e3/ul Normal 0.00-0.03 [facility] Comment on above: Performed By: #### C BC #### [facility] [address] [place] [address] Dr. Yaneth Walton IG % 0.2 % Normal 0.0-0.5 [facility] Comment on above: Performed By: #### C BC #### [facility] [address] [place] [address] Dr. Yaneth Walton LYMPH # 1.0 103/ul Critically low 1.2-3.8 [facility] Comment on above: Performed By: #### C BC #### [facility] [address] [place] [address] Dr. Yaneth Walton Lymphocytes/100 WBC (Bld) 20.9 % Normal 20.5-60.0 [facility] Comment on above: Performed By: #### C BC #### [facility] [address] [place] [address] Dr. Yaneth Walton MANUAL DIFF REQ NO Normal [facility] Comment on above: Performed By: #### C BC #### [facility] [address] [place] [address] Dr. Yaneth Walton MCH (RBC) [Entitic mass] 32.0 pg Normal 26.7-34.0 [facility] Comment on above: Performed By: #### C BC #### [facility] [address] [place] [address] Dr. Yaneth Walton MCHC (RBC) [Mass/Vol] 33.0 g/dL Normal 29.9-35.2 [facility] Comment on above: Performed By: #### C BC #### [facility] [address] [place] [address] Dr. Yaneth Walton MCV (RBC) [Entitic vol] 97.1 fL Normal 81.0-99.0 [facility] Comment on above: Performed By: #### C BC #### [facility] [address] [place] [address] Dr. Yaneth Walton MONO # 0.4 103/ul Normal 0.3-0.8 [facility] Comment on above: Performed By: #### C BC #### [facility] [address] [place] [address] Dr. Yaneth Walton Monocytes/100 WBC (Bld) 8.4 % Normal 1.7-12.0 [facility] Comment on above: Performed By: #### C BC #### [facility] [address] [place] [address] Dr. Yaneth Walton NEUT # 3.1 103/ul Normal 1.4-6.5 [facility] Comment on above: Performed By: #### C BC #### [facility] [address] [place] [address] Dr. Yaneth Walton Neutrophils/100 WBC (Bld) 67.1 % Normal 43.0-75.0 [facility] Comment on above: Performed By: #### C BC #### [facility] [address] [place] [address] Dr. Yaneth Walton Platelet mean volume (Bld) [Entitic vol] 10.7 fL Normal 9.5-13.5 [facility] Comment on above: Performed By: #### C BC #### [facility] [address] [place] [address] Dr. Yaneth Walton PLT 213 103/ul Normal 150-450 [facility] Comment on above: Performed By: #### C BC #### [facility] [address] [place] [address] Dr. Yaneth Walton RBC 4.15 106/ul Critically low 4.20-5.40 [facility] Comment on above: Performed By: #### C BC #### [facility] [address] [place] [address] Dr. Yaneth Walton WBC 4.7 103/ul Normal 4.0-11.0 [facility] Comment on above: Performed By: #### C BC #### [facility] [address] [place] [address] Dr. Yaneth Walton CREATININEon 06-21-2022 Creatinine [Mass/Vol] 0.82 mg/dL Normal 0.55-1.02 [facility] Comment on above: Performed By: #### C ROMEO #### [facility] [address] [place] [address] Dr. Yaneth Walton EGFR-AF DUTCH >60 Normal >=60 [facility] Comment on above: Performed By: #### C ROMEO #### [facility] [address] [place] [address] Dr. Yaneth Walton EGFR-NON AF DUTCH >60 Normal >=60 [facility] Comment on above: Performed By: #### C ROMEO #### [facility] [address] [place] [address] Dr. Yaneth Walton SED RATE WESTERGRENon 2022 SED RATE 7 mm/hr Normal <=30 [facility] Comment on above: Performed By: #### C ROMEO #### [facility] [address] [place] [address] Dr. Yaneth Walton UA RANDOM W/MICROSCOPICon BACTERIA TRACE Abnormal NONE SEEN [facility] Comment on above: Performed By: #### C ROMEO #### [facility] [address] [place] [address] Dr. Yaneth Walton Bilirubin Ql (U) Negative Normal NEGATIVE [facility] Comment on above: Performed By: #### C ROMEO #### [facility] [address] [place] [address] Dr. Yaneth Walton CAST NONE SEEN Normal NONE SEEN [facility] Comment on above: Performed By: #### C ROMEO #### [facility] [address] [place] [address] Dr. Yaneth Walton Clarity (U) CLEAR Normal CLEAR [facility] Comment on above: Performed By: #### C ROMEO #### [facility] [address] [place] [address] Dr. Yaneth Walton Color (U) LT. YELLOW Normal YELLOW [facility] Comment on above: Performed By: #### C ROMEO #### [facility] [address] [place] [address] Dr. Yaneth Walton Crystals LM Nom (Urine sed) NONE SEEN Normal NONE SEEN [facility] Comment on above: Performed By: #### C ROMEO #### [facility] [address] [place] [address] Dr. Yaneth Walton Epithelial cells LM Ql (Urine sed) RARE Normal NONE SEEN /RARE [facility] Comment on above: Performed By: #### C ROMEO #### [facility] [address] [place] [address] Dr. Yaneth Walton Glucose Ql (U) Negative Normal NEGATIVE [facility] Comment on above: Performed By: #### C ROMEO #### [facility] [address] [place] [address] Dr. Yaneth Walton Hemoglobin Ql (U) Negative Normal NEGATIVE [facility] Comment on above: Performed By: #### C ROMEO #### [facility] [address] [place] [address] Dr. Yaneth Walton Ketones Ql (U) Negative Normal NEGATIVE [facility] Comment on above: Performed By: #### C ROMEO #### [facility] [address] [place] [address] Dr. Yaneth Walton LEUKOCYTES LARGE Abnormal NEGATIVE [facility] Comment on above: Performed By: #### C ROMEO #### [facility] [address] [place] [address] Dr. Yaneth Walton MUCOUS NONE SEEN Normal NONE SEEN [facility] Comment on above: Performed By: #### C ROMEO #### [facility] [address] [place] [address] Dr. Yaneth Walton Nitrite Ql (U) Negative Normal NEGATIVE [facility] Comment on above: Performed By: #### C ROMEO #### [facility] [address] [place] [address] Dr. Yaneth Walton pH (U) 6.0 [pH] Normal 5-9 [facility] Comment on above: Performed By: #### C ROMEO #### [facility] [address] [place] [address] Dr. Yaneth Walton RBC 0-2 Normal 0-2 [facility] Comment on above: Performed By: #### C ROMEO #### [facility] [address] [place] [address] Dr. Yaneth Walton SPEC GRAVITY <=1.005 Abnormal 1.005-<=1. 025 [facility] Comment on above: Performed By: #### C ROMEO #### [facility] [address] [address] [address] Yaneth Walton UA PROTEIN Negative Normal NEGATIVE/ TRACE [facility] Comment on above: Performed By: #### C ROMEO #### [facility] [address] [address] [address] Yaneth Walton Urobilinogen Qn (U) 0.2 {Ruth Ann'U}/dL Normal 0.2 - 1. 0 [facility] Comment on above: Performed By: #### C ROMEO #### [facility] [address] [address] [address] Yaneth Walton WBC 10-20 Abnormal NONE SEEN [facility] Comment on above: Performed By: #### C ROMEO #### [facility] [address] [address] [address] Yaneth Walton MRI LSPINE WO CONon 02-11-20 MRI LSPINE WO CON EXAMINATION: MRI LSP [...] by: HEATHER BECKER Date: 2022-02-10 14:50 Normal [facility] XR KNEE OH 4V or >on 2021 XR KNEE OH 4V or > EXAMINATION: XR KNEE OH 4V or > HISTORY: Pain of bilateral [...] HEATHER BECKER Date: 2022-02-03 17:51 Normal [facility] XR LSPINE MIN 4 VIEWSon XR LSPINE [...] HEATHER BECKER Date: 2022-02-03 17:54 Normal [facility] C3 and C4 COMPLEMENTon 12-22 Complement C3, Serum 155 mg/dL Normal 82-167 [facility] Comment on above: Performed By: #### C SUITE #### [facility] [address] [address] [address] Yaneth Walton Complement C4, Serum 35 mg/dL Normal 12-38 [facility] Comment on above: Performed By: #### C SUITE #### [facility] [address] [address] [address] Yaneth Walton CBC AUTO DIFFon 12-21-2021 BASO # 0.1 103/ul Normal 0.0-0.1 [facility] Comment on above: Performed By: #### C BC #### [facility] [address] [place] [address] Dr. Yaneth Walton Basophils/100 WBC (Bld) 0.9 % Normal 0.2-2.0 [facility] Comment on above: Performed By: #### C BC #### [facility] [address] [place] [address] Dr. Yaneth Walton EO # 0.1 103/ul Normal 0.0-0.7 [facility] Comment on above: Performed By: #### C BC #### [facility] [address] [place] [address] Dr. Yaneth Walton Eosinophils/100 WBC (Bld) 2.2 % Normal 0.9-7.0 [facility] Comment on above: Performed By: #### C BC #### [facility] [address] [place] [address] Dr. Yaneth Walton Erythrocyte distribution width (RBC) [Ratio] 13.0 % Normal 11.0-15.0 [facility] Comment on above: Performed By: #### C BC #### [facility] [address] [place] [address] Dr. Yaneth Walton Hematocrit (Bld) [Volume fraction] 42.0 % Normal 36.0-48.0 [facility] Comment on above: Performed By: #### C BC #### [facility] [address] [place] [address] Dr. Yaneth Walton Hemoglobin (Bld) [Mass/Vol] 13.4 g/dL Normal 12.0-16.0 [facility] Comment on above: Performed By: #### C BC #### [facility] [address] [place] [address] Dr. Yaneth Walton IG # 0.01 10e3/ul Normal 0.00-0.03 [facility] Comment on above: Performed By: #### C BC #### [facility] [address] [place] [address] Dr. Yaneth Walton IG % 0.2 % Normal 0.0-0.5 [facility] Comment on above: Performed By: #### C BC #### [facility] [address] [place] [address] Dr. Yaneth Walton LYMPH # 1.0 103/ul Critically low 1.2-3.8 [facility] Comment on above: Performed By: #### C BC #### [facility] [address] [place] [address] Dr. Yaneth Walton Lymphocytes/100 WBC (Bld) 18.0 % Critically low 20.5-60.0 [facility] Comment on above: Performed By: #### C BC #### [facility] [address] [place] [address] Dr. Yaneth Walton MANUAL DIFF REQ NO Normal [facility] Comment on above: Performed By: #### C BC #### [facility] [address] [place] [address] Dr. Yaneth Walton MCH (RBC) [Entitic mass] 30.5 pg Normal 26.7-34.0 [facility] Comment on above: Performed By: #### C BC #### [facility] [address] [place] [address] Dr. Yaneth Walton MCHC (RBC) [Mass/Vol] 31.9 g/dL Normal 29.9-35.2 [facility] Comment on above: Performed By: #### C BC #### [facility] [address] [place] [address] Dr. Yaneth Walton MCV (RBC) [Entitic vol] 95.7 fL Normal 81.0-99.0 [facility] Comment on above: Performed By: #### C BC #### [facility] [address] [place] [address] Dr. Yaneth Walton MONO # 0.5 103/ul Normal 0.3-0.8 [facility] Comment on above: Performed By: #### C BC #### [facility] [address] [place] [address] Dr. Yaneth Walton Monocytes/100 WBC (Bld) 8.7 % Normal 1.7-12.0 [facility] Comment on above: Performed By: #### C BC #### [facility] [address] [place] [address] Dr. Yaneth Walton NEUT # 3.8 103/ul Normal 1.4-6.5 [facility] Comment on above: Performed By: #### C BC #### [facility] [address] [place] [address] Dr. Yaneth Walton Neutrophils/100 WBC (Bld) 70.0 % Normal 43.0-75.0 [facility] Comment on above: Performed By: #### C BC #### [facility] [address] [place] [address] Dr. Yaneth Walton Platelet mean volume (Bld) [Entitic vol] 10.8 fL Normal 9.5-13.5 [facility] Comment on above: Performed By: #### C BC #### [facility] [address] [place] [address] Dr. Yaneth Walton PLT 213 103/ul Normal 150-450 [facility] Comment on above: Performed By: #### C BC #### [facility] [address] [place] [address] Dr. Yaneth Walton RBC 4.39 106/ul Normal 4.20-5.40 [facility] Comment on above: Performed By: #### C BC #### [facility] [address] [place] [address] Dr. Yaneth Walton WBC 5.4 103/ul Normal 4.0-11.0 [facility] Comment on above: Performed By: #### C BC #### [facility] [address] [address] [address] Yaneth Walton CREATININEon 12-21-2021 Creatinine [Mass/Vol] 0.87 mg/dL Normal 0.55-1.02 [facility] Comment on above: Performed By: #### C ROMEO #### [facility] [address] [place] [address] Dr. Yaneth Walton EGFR-AF DUTCH >60 Normal >=60 [facility] Comment on above: Performed By: #### C ROMEO #### [facility] [address] [place] [address] Dr. Yaneth Walton EGFR-NON AF DUTCH >60 Normal >=60 [facility] Comment on above: Performed By: #### C ROMEO #### [facility] [address] [place] [address] Dr. Yaneth Walton SED RATE WE[facility]UROLOG[facility] INSTITUTEREN 2021 SED RATE 10 mm/hr Normal <=30 [facility] Comment on above: Performed By: #### S EDR #### [facility] [address] [place] [address] Dr. Yaneth Walton UA RANDOM W/MICROSCOPICon BACTERIA NONE SEEN Normal NONE SEEN [facility] Comment on above: Performed By: #### C ROMEO #### [facility] [address] [place] [address] Dr. Yaneth Walton Bilirubin Ql (U) Negative Normal NEGATIVE [facility] Comment on above: Performed By: #### C ROMEO #### [facility] [address] [place] [address] Dr. Yaneth Walton CAST NONE SEEN Normal NONE SEEN [facility] Comment on above: Performed By: #### C ROMEO #### [facility] [address] [place] [address] Dr. Yaneth Walton Clarity (U) CLEAR Normal CLEAR [facility] Comment on above: Performed By: #### C ROMEO #### [facility] [address] [place] [address] Dr. Yaneth Walton Color (U) LT. YELLOW Normal YELLOW [facility] Comment on above: Performed By: #### C ROMEO #### [facility] [address] [place] [address] Dr. Yaneth Walton Crystals LM Nom (Urine sed) NONE SEEN Normal NONE SEEN [facility] Comment on above: Performed By: #### C ROMEO #### [facility] [address] [place] [address] Dr. Yaneth Walton Epithelial cells LM Ql (Urine sed) FEW Abnormal NONE SEEN /RARE [facility] Comment on above: Performed By: #### C ROMEO #### [facility] [address] [place] [address] Dr. Yaneth Walton Glucose Ql (U) Negative Normal NEGATIVE [facility] Comment on above: Performed By: #### C ROMEO #### [facility] [address] [place] [address] Dr. Yaneth Walton Hemoglobin Ql (U) Negative Normal NEGATIVE [facility] Comment on above: Performed By: #### C ROMEO #### [facility] [address] [place] [address] Dr. Yaneth Walton Ketones Ql (U) Negative Normal NEGATIVE [facility] Comment on above: Performed By: #### C ROMEO #### [facility] [address] [place] [address] Dr. Yaneth Walton LEUKOCYTES TRACE Abnormal NEGATIVE [facility] Comment on above: Performed By: #### C ROMEO #### [facility] [address] [place] [address] Dr. Yaneth Walton MUCOUS NONE SEEN Normal NONE SEEN [facility] Comment on above: Performed By: #### C ROMEO #### [facility] [address] [place] [address] Dr. Yaneth Walton Nitrite Ql (U) Negative Normal NEGATIVE [facility] Comment on above: Performed By: #### C ROMEO #### [facility] [address] [place] [address] Dr. Yaneth Walton pH (U) 6.0 [pH] Normal 5-9 [facility] Comment on above: Performed By: #### C ROMEO #### [facility] [address] [place] [address] Dr. Yaneth Walton RBC NONE SEEN Abnormal 0-2 [facility] Comment on above: Performed By: #### C ROMEO #### [facility] [address] [place] [address] Dr. Yaneth Walton SPEC GRAVITY 1.010 Normal 1.005-<=1. 025 [facility] Comment on above: Performed By: #### C ROMEO #### [facility] [address] [place] [address] Dr. Yaneth Walton UA PROTEIN Negative Normal NEGATIVE/ TRACE [facility] Comment on above: Performed By: #### C ROMEO #### [facility] [address] [place] [address] Dr. Yaneth Walton Urobilinogen Qn (U) 0.2 {Ruth Ann'U}/dL Normal 0.2 - 1. 0 [facility] Comment on above: Performed By: #### C ROMEO #### [facility] [address] [place] [address] Dr. Yaneth Walton WBC 0-2 Abnormal NONE SEEN [facility] Comment on above: Performed By: #### C ROMEO #### [facility] [address] [place] [address] Dr. Yaneth Walton PTH INTACTon 08-20-2021 PTH, Intact 44 pg/mL Normal 15-65 [facility] Comment on above: Performed By: #### B ETA2M #### [facility] [address] [place] [address] Dr. Yaneth Walton FREE T3on 08-19-2021 FREE T3 2.44 pg/mlL Normal 2.18-3.98 [facility] Comment on above: Performed By: #### B ETA2M #### [facility] [address] [place] [address] Dr. Yaneth Walton FREE T4on 08-19-2021 Free T4 [Mass/Vol] 1.11 ng/dL Normal 0.76-1.46 [facility] Comment on above: Performed By: #### B ETA2M #### [facility] [address] [place] [address] Dr. Yaneth Walton LIPID PROFILEon 08-19-2021 CHOL-HDL RATIO NORM SEE BELOW Normal [facility] Comment on above: Result Comment: 3.3 - 4.4 LOW RISK 4.4 - 7.1 AVERAGE RISK 7.1 - 11.0 MODERATE RISK >11.0 HIGH RISK Performed By: #### C ROMEO #### [facility] [address] [address] [address] Yaneth Walton Cholesterol [Mass/Vol] 180 mg/dL Normal <=200 [facility] Comment on above: Performed By: #### C ROMEO #### [facility] [address] [address] [address] Yaneth Walton Cholesterol in HDL [Mass/Vol] 76 mg/dL Critically high 40-60 [facility] Comment on above: Performed By: #### C ROMEO #### [facility] [address] [place] [address] Dr. Yaneth Walton Cholesterol in LDL [Mass/Vol] 92.6 mg/dL Normal [facility] Comment on above: Performed By: #### C ROMEO #### [facility] [address] [address] [address] Yaneth Walton Cholesterol.total/Nydia sterol in HDL [Mass ratio] 2.4 {ratio} Normal [facility] Comment on above: Performed By: #### C ROMEO #### [facility] [address] [place] [address] Dr. Yaneth Walton HDL NORMAL > or = 60 mg/dl - LO W CARDIOVASCULAR RISK <40 mg/dl - HIGH CARDIOVASCULAR RISK Normal [facility] Comment on above: Performed By: #### C ROMEO #### [facility] [address] [place] [address] Dr. Yaneth Walton LDL CALC NORMAL SEE BELOW Normal [facility] Comment on above: Result Comment: <100 mg/dl OPTIMAL 100 - 129 mg/dl NEAR OR ABOVE OPTIMAL 130 - 159 mg/dl BORDERLINE HIGH 160 - 189 mg/dl HIGH >190 mg/dl VERY HIGH Performed By: #### C ROMEO #### [facility] [address] [place] [address] Dr. Yaneth Walton Triglyceride [Mass/Vol] 57 mg/dL Normal <=150 [facility] Comment on above: Performed By: #### C ROMEO #### [facility] [address] [address] [address] Yaneth Walton VLDL CALC 11.4 mg/dL Normal [facility] Comment on above: Performed By: #### C ROMEO #### [facility] [address] [place], [place] [address] Dr. Yaneth Walton MG MAMM SCREEN 3D OH CADon 08-19-2021 MG MAMM SCREEN 3D OH CAD Patient: SINA PEREZ Exam Date: 08/19/2021 : 1950 Gender:F Ordering : DR GER KENNEDY . Admission #: [id number] Family : Order #: [id number] CLICK HERE TO VIEW EXAM RADIOLOGY REPORT PROCEDURE: MAMMOGRAM SCREENING 3D BILATERAL CAD COMPARISON: MG MAMM SCREEN 3D OH CAD, 08/17/2020. MG MAMM SCREEN OH W CAD, 01/02/2019. INDICATIONS: Screening mammography Calculator Name NCI Breast Cancer Risk Assessment Tool 5 Year Breast Cancer Risk 1.90% Lifetime Breast Cancer Risk 5.60% Personal Breast Cancer No Personal Ovarian Cancer No Treatments None Family Cancers Father with pancreatic cancer at age 81; Grandmother-maternal with colon cancer at age 70. LOCATION: [facility] BREAST COMPOSITION: Heterogeneously dense,which may [...] PALPABLE LUMP SHOULD BE BIOPSIED. Dictated by: Noemi Acosta M.D. on 08/19/2021 at 12:03 Approved by: Noemi Acosta M.D. on 08/19/2021 at 12:07 Normal [facility] TSHon 08-19-2021 TSH 0.181 uIU/mL Critically low 0.358-3.74 0 [facility] Comment on above: Performed By: #### B ETA2M #### [facility] [address] [address] [address] Yaneth Walton VITAMIN D 25 OHon 08-19-2021 VIT D 25-OH 51.8 ng/mL Normal [facility] Comment on above: Performed By: #### B ETA2M #### [facility] [address] [address] [address] Yaneth Walton VIT D RANGES SEE BELOW Normal [facility] Comment on above: Result Comment: <20 ng/mL Vit D deficient 20 - <30 ng/mL Vit D insufficient 30 - 100 ng/mL Vit D sufficient >100 ng/mL Potential Toxicity Performed By: #### B ETA2M #### [facility] [address] [address] [address] Yaneth Walton [facility] Surgical Pathology Depar tmenton 08-04-2021 [facility] Surgical Pathology Department Name SINA PREEZ Pathologist: TONYA CARRERA DMD Date of Procedure: 08/04/2021 Date Received: 08/08/2021 Date Reported 08/12/2021 Submitting Physician: LIZETH LAYTON DDS Location: [facility] Other External # FINAL DIAGNOSIS A. ATTACHED GINGIVA OF TEETH #[id number], EXCISION: -- MILD EPITHELIAL DYSPLASIA (MULTIPLE LEVELS EXAMINED) ICD-10/CPT: K13.21/15648 Electronically Signed Out By TONYA CARRERA DMD/SOPHYS By the signature on this report, the individual or group listed as making the Final Interpretation/Diagnosis certifies that they have reviewed this case. Diagnostic interpretation performed at [facility], [place], operated by [facility] [address] [facility] [address] Microscopic Description: The sections show a fragment [...] and entirely submitted in one cassette. [facility]/08/08/2021 [facility] Department of Pathology [id number] [place] [address] Normal [facility] Comment on above: Performed By: #### U HCS #### [facility] Surgical Pathology Department [address] [place] [id number] IMMUNOFIXATION (MG), SERUMo n 07-11-2021 IMMUNOFIXATION RESULT Comment Abnormal [facility] Comment on above: Result Comment: Immu nofixation shows IgG monoclonal protein with lambda light chain specificity. Performed By: #### C ROMEO #### [facility] [address] [address] [address] Yaneth Walton Immunoglobulin A, Qn, Serum 113 mg/dL Normal 87-352 [facility] Comment on above: Performed By: #### C ROMEO #### [facility] [address] [address] [address] Yaneth Walton Immunoglobulin G, Qn, Serum 1031 mg/dL Normal 586-1602 [facility] Comment on above: Performed By: #### C ROMEO #### [facility] [address] [address] [address] Yaneth Walton Immunoglobulin M, Qn, Serum 42 mg/dL Normal 26-217 [facility] Comment on above: Performed By: #### C ROMEO #### [facility] [address] [address] [address] Yaneth Walton BETA-2 MICROGLOBINon 022 Beta-2 Microglobulin, Serum 2.2 mg/L Normal 0.6-2.4 [facility] Comment on above: Result Comment: [facility] [employer] 2000 Immunochemiluminometric assay (ICMA) . Values obtained with different assay methods or kits cannot be used interchangeably. Results cannot be interpreted as absolute evidence of the presence or absence of malignant disease. Performed By: #### B ETA2M #### [facility] [address] [place] [address] Dr. Yaneth Walton FREE LIGHT CHAINS PLUS RATIO on 07-09-2021 Free [place] Lt Chains,S 34.7 mg/L Critically high 3.3-19.4 [facility] Comment on above: Performed By: #### F REELIT #### [facility] [address] [place] [address] Dr. Yaneth Walton Free Lambda Lt Chains,S 50.1 mg/L Critically high 5.7-26. 3 [facility] Comment on above: Performed By: #### F VALENTINLIT #### [facility] [address] [place] [address] Dr. Yaneth Walton [place]/Lambda Ratio, S 0.69 Normal 0.26-1.65 [facility] Comment on above: Performed By: #### F REELIT #### [facility] [address] [place] [address] Dr. Yaneth Walton IMMUNOGLOBULINS IGA/IGM/IGG QUANTITATIVEon 07-08-2021 Immunoglobulin A, Qn, Serum 111 mg/dL Normal 87-352 [facility] Comment on above: Performed By: #### I MMUNGL #### [facility] [address] [place] [address] Dr. Yaneth Walton Immunoglobulin G, Qn, Serum 1037 mg/dL Normal 586-1602 [facility] Comment on above: Performed By: #### I MMUNGL #### [facility] [address] [place] [address] Dr. Yaneth Walton Immunoglobulin M, Qn, Serum 44 mg/dL Normal 26-217 [facility] Comment on above: Performed By: #### I MMUNGL #### [facility] [address] [place] [address] Dr. Yaneth Walton CBC AUTO DIFFon 07-07-2021 BASO # 0.0 103/ul Normal 0.0-0.1 [facility] Comment on above: Performed By: #### C BC #### [facility] [address] [place] [address] Dr. Yaneth Walton Basophils/100 WBC (Bld) 0.7 % Normal 0.2-2.0 [facility] Comment on above: Performed By: #### C BC #### [facility] [address] [place] [address] Dr. Yaneth Walton EO # 0.2 103/ul Normal 0.0-0.7 [facility] Comment on above: Performed By: #### C BC #### [facility] [address] [place] [address] Dr. Yaneth Walton Eosinophils/100 WBC (Bld) 2.9 % Normal 0.9-7.0 [facility] Comment on above: Performed By: #### C BC #### [facility] [address] [place] [address] Dr. Yaneth Walton Erythrocyte distribution width (RBC) [Ratio] 12.9 % Normal 11.0-15.0 [facility] Comment on above: Performed By: #### C BC #### [facility] [address] [place] [address] Dr. Yaneth Walton Hematocrit (Bld) [Volume fraction] 43.1 % Normal 36.0-48.0 [facility] Comment on above: Performed By: #### C BC #### [facility] [address] [place] [address] Dr. Yaneth Walton Hemoglobin (Bld) [Mass/Vol] 13.8 g/dL Normal 12.0-16.0 [facility] Comment on above: Performed By: #### C BC #### [facility] [address] [place] [address] Dr. Yaneth Walton IG # 0.02 10e3/ul Normal 0.00-0.03 [facility] Comment on above: Performed By: #### C BC #### [facility] [address] [place] [address] Dr. Yaneth Walton IG % 0.4 % Normal 0.0-0.5 [facility] Comment on above: Performed By: #### C BC #### [facility] [address] [place] [address] Dr. Yaneth Walton LYMPH # 1.3 103/ul Normal 1.2-3.8 [facility] Comment on above: Performed By: #### C BC #### [facility] [address] [place] [address] Dr. Yaneth Walton Lymphocytes/100 WBC (Bld) 22.9 % Normal 20.5-60.0 [facility] Comment on above: Performed By: #### C BC #### [facility] [address] [place] [address] Dr. Yaneth Walton MANUAL DIFF REQ NO Normal [facility] Comment on above: Performed By: #### C BC #### [facility] [address] [place] [address] Dr. Yaneth Walton MCH (RBC) [Entitic mass] 30.3 pg Normal 26.7-34.0 [facility] Comment on above: Performed By: #### C BC #### [facility] [address] [place] [address] Dr. Yaneth Walton MCHC (RBC) [Mass/Vol] 32.0 g/dL Normal 29.9-35.2 [facility] Comment on above: Performed By: #### C BC #### [facility] [address] [place] [address] Dr. Yaneth Walton MCV (RBC) [Entitic vol] 94.5 fL Normal 81.0-99.0 [facility] Comment on above: Performed By: #### C BC #### [facility] [address] [place] [address] Dr. Yaneth Walton MONO # 0.5 103/ul Normal 0.3-0.8 [facility] Comment on above: Performed By: #### C BC #### [facility] [address] [place] [address] Dr. Yaneth Walton Monocytes/100 WBC (Bld) 8.7 % Normal 1.7-12.0 [facility] Comment on above: Performed By: #### C BC #### [facility] [address] [place], [place] [id number] Dr. Yaneth Walton NEUT # 3.5 103/ul Normal 1.4-6.5 [facility] Comment on above: Performed By: #### C BC #### [facility] [address] [place] [address] Dr. Yaneth Walton Neutrophils/100 WBC (Bld) 64.4 % Normal 43.0-75.0 [facility] Comment on above: Performed By: #### C BC #### [facility] [address] [place] [address] Dr. Yaneth Walton Platelet mean volume (Bld) [Entitic vol] 11.0 fL Normal 9.5-13.5 [facility] Comment on above: Performed By: #### C BC #### [facility] [address] [place] [address] Dr. Yaneth Walton PLT 206 103/ul Normal 150-450 [facility] Comment on above: Performed By: #### C BC #### [facility] [address] [place] [address] Dr. Yaneth Walton RBC 4.56 106/ul Normal 4.20-5.40 [facility] Comment on above: Performed By: #### C BC #### [facility] [address] [place] [address] Dr. Yaneth Walton WBC 5.5 103/ul Normal 4.0-11.0 [facility] Comment on above: Performed By: #### C BC #### [facility] [address] [place] [address] Dr. Yaneth Walton PROF 14(COMP METB)on 022 Albumin [Mass/Vol] 3.7 g/dL Normal 3.4-5.0 [facility] Comment on above: Performed By: #### B ETA2M #### [facility] [address] [place] [address] Dr. Yaneth Walton Albumin/Globulin [Mass ratio] 1.0 {ratio} Normal [facility] Comment on above: Performed By: #### B ETA2M #### [facility] [address] [place] [address] Dr. Yaneth Walton ALP [Catalytic activity/Vol] 103 U/L Normal 46-116 [facility] Comment on above: Performed By: #### B ETA2M #### [facility] [address] [address] [address] Yaneth Walton ALT [Catalytic activity/Vol] 28 U/L Normal 14-59 [facility] Comment on above: Performed By: #### B ETA2M #### [facility] [address] [address] [address] Yaneth Walton Anion gap [Moles/Vol] 12.0 mmol/L Normal [facility] Comment on above: Performed By: #### B ETA2M #### [facility] [address] [place] [address] Dr. Yaneth Walton AST [Catalytic activity/Vol] 26 U/L Normal 15-37 [facility] Comment on above: Performed By: #### B ETA2M #### [facility] [address] [address] [address] Yaneth Walton Bilirubin [Mass/Vol] 0.7 mg/dL Normal 0.2-1.0 [facility] Comment on above: Performed By: #### B ETA2M #### [facility] [address] [place] [address] Dr. Yaneth Walton Calcium [Mass/Vol] 8.6 mg/dL Normal 8.5-10.1 [facility] Comment on above: Performed By: #### B ETA2M #### [facility] [address] [address] [address] Yaneth Walton Chloride [Moles/Vol] 103 mmol/L Normal 98-107 [facility] Comment on above: Performed By: #### B ETA2M #### [facility] [address] [address] [address] Yaneth Walton CO2 [Moles/Vol] 28.7 mmol/L Normal 21.0-32.0 [facility] Comment on above: Performed By: #### B ETA2M #### [facility] [address] [address] [address] Yaneth Walton Creatinine [Mass/Vol] 0.84 mg/dL Normal 0.55-1.02 [facility] Comment on above: Performed By: #### B ETA2M #### [facility] [address] [place] [address] Dr. Yaneth Walton EGFR-AF DUTCH >60 Normal >=60 [facility] Comment on above: Performed By: #### B ETA2M #### [facility] [address] [place] [address] Dr. Yaneth Walton EGFR-NON AF DUTCH >60 Normal >=60 [facility] Comment on above: Performed By: #### B ETA2M #### [facility] [address] [place] [address] Dr. Yaneth Walton Globulin (S) [Mass/Vol] 3.7 g/dL Normal T [facility] Comment on above: Performed By: #### B ETA2M #### [facility] [address] [place] [address] Dr. Yaneth Walton Glucose [Mass/Vol] 90 mg/dL Normal 74-106 [facility] Comment on above: Performed By: #### B ETA2M #### [facility] [address] [place] [address] Dr. Yaneth Walton Potassium [Moles/Vol] 3.7 mmol/L Normal 3.5-5.1 [facility] Comment on above: Performed By: #### B ETA2M #### [facility] [address] [place] [address] Dr. Yaneth Walton Protein [Mass/Vol] 7.4 g/dL Normal 6.1-8.2 [facility] Comment on above: Performed By: #### B ETA2M #### [facility] [address] [place] [address] Dr. Yaneth Walton Sodium [Moles/Vol] 140 mmol/L Normal 136-145 [facility] Comment on above: Performed By: #### B ETA2M #### [facility] [address] [place] [address] Dr. Yaneth Walton Urea nitrogen [Mass/Vol] 22.0 mg/dL Critically high 7.0-18.0 [facility] Comment on above: Performed By: #### B ETA2M #### [facility] [address] [place] [address] Dr. Yaneth Walton Urea nitrogen/Creatinine [Mass ratio] 26.2 mg/mg Normal [facility] Comment on above: Performed By: #### B ETA2M #### [facility] [address] [address] [address] Yaneth Walton Vital Signs Date Time Vital Sign Value Performing Clinician Facility 05-07-2024 11:00-0500 Body mass index (BMI) [Ratio] 34.07 kg/m2 Felicia Salazar CODING QUALITY ANALYST Work Phone: [facility] 05-07-2024 11:00-0500 Body weight 73.94 kg Felicia Salazar CODING QUALITY ANALYST Work Phone: [facility] 05-07-2024 11:00-0500 Diastolic blood pressure 86 mm[Hg] Felicia Salazar CODING QUALITY ANALYST Work Phone: [facility] 05-07-2024 11:00-0500 Heart rate 75 /min Felicia Salazar CODING QUALITY ANALYST Work Phone: [facility] 05-07-2024 11:00-0500 SaO2% (BldA) [Mass fraction] 97 % Felicia Salazar CODING QUALITY ANALYST Work Phone: [facility] 05-07-2024 11:00-0500 Systolic blood pressure 142 mm[Hg] Felicia Salazar CODING QUALITY ANALYST Work Phone: [facility] 08-29-2023 13:53-0400 Body height 149.86 cm MD Miguel Allen Work Phone: [facility] 08-29-2023 13:53-0400 Body mass index (BMI) [Ratio] 31.7 kg/m2 MD Miguel Allen Work Phone: [facility] 08-29-2023 13:53-0400 Body temperature 97 [degF] MD Miguel Allen Work Phone: [facility] 08-29-2023 13:53-0400 Body weight 71.21 kg MD Miguel Allen Work Phone: [facility] 08-29-2023 13:53-0400 Diastolic blood pressure 77 mm[Hg] MD Miguel Allen Work Phone: [facility] 08-29-2023 13:53-0400 Heart rate 71 /min MD Miguel Allen Work Phone: [facility] 08-29-2023 13:53-0400 Respiratory rate 16 /min MD Miguel Allen Work Phone: [facility] 08-29-2023 13:53-0400 SaO2% (BldA) [Mass fraction] 97 % MD Miguel Allen Work Phone: [facility] 08-29-2023 13:53-0400 Systolic blood pressure 148 mm[Hg] MD Miguel Allen Work Phone: [facility] 08-08-2023 10:37-0400 Diastolic blood pressure 86 mm[Hg] MD Miguel Allen Work Phone: [facility] 08-08-2023 10:37-0400 Heart rate 61 /min MD Miguel Allen Work Phone: [facility] 08-08-2023 10:37-0400 Respiratory rate 16 /min MD Miguel Allen Work Phone: [facility] 08-08-2023 10:37-0400 SaO2% (BldA) [Mass fraction] 99 % MD Miguel Allen Work Phone: [facility] 08-08-2023 10:37-0400 Systolic blood pressure 152 mm[Hg] MD Miguel Allen Work Phone: [facility] 08-08-2023 09:10-0400 Body height 144.78 cm MD Miguel Allen Work Phone: [facility] 08-08-2023 09:10-0400 Body weight 70.3 kg MD Miguel Allen Work Phone: [facility] 07-25-2023 09:57-0400 Body height 144.78 cm MD Miguel Allen Work Phone: [facility] 07-25-2023 09:57-0400 Body mass index (BMI) [Ratio] 34.4 kg/m2 MD Miguel Allen Work Phone: [facility] 07-25-2023 09:57-0400 Body temperature 97.9 [degF] MD Miguel Allen Work Phone: [facility] 07-25-2023 09:57-0400 Body weight 72.12 kg MD Miguel Allen Work Phone: [facility] 07-25-2023 09:57-0400 Diastolic blood pressure 92 mm[Hg] MD Miguel Allen Work Phone: [facility] 07-25-2023 09:57-0400 Heart rate 69 /min MD Miguel Allen Work Phone: [facility] 07-25-2023 09:57-0400 Respiratory rate 16 /min MD Miguel Allen Work Phone: [facility] 07-25-2023 09:57-0400 SaO2% (BldA) [Mass fraction] 98 % MD Miguel Allen Work Phone: [facility] 07-25-2023 09:57-0400 Systolic blood pressure 178 mm[Hg] MD Miguel Allen Work Phone: [facility] Encounters Encounter Date Encounter Type Care Provider Facility Start: 12-25-2024 ambulatory MD Miguel Allen Facil ity:[facility] Start: 07-01-2024 ambulatory Miguel Allen Facility :CD:[id number] Start: 06-30-2024 End: 06-30-2024 ambulatory MD Miguel Allen Facility:[facility] Start: 05-07-2024 End: 05-07-2024 Bamboo flowsheet Felicia Salazar NP Work Phone: [facility] Start: 05-07-2024 End: 05-07-2024 Bamboo flowsheet Felicia Salazar CODING QUALITY ANALYST Work Phone: [facility] Start: 05-07-2024 End: 05-07-2024 Office outpatient visit 15 minutes Felicia Salazar CODING QUALITY ANALYST Work Phone: [facility] Comment on above: Lumbar radiculopathy (Primary Dx); Degeneration of intervertebral disc of lumbar region, unspecified whether pain present; Gait instability; Sjogren's syndrome, with unspecified organ involvement (HCC) (CMS/HCC); Numbness of left hand Start: 05-07-2024 End: 05-07-2024 ambulatory FELICIA SALAZAR Not Available Start: 02-06-2024 End: 02-08-2024 External Result Encounter Tatiana Douglas MD Work Phone: [facility] External Department Unsolicited Start: 02-06-2024 End: 02-08-2024 External Result Encounter Tatiana Douglas MD Work Phone: [facility] External Department Unsolicited Start: 02-06-2024 ambulatory Tatiana oDuglas Facility:[facility] Start: 12-31-2023 End: 12-31-2023 Lab Drop off Miguel Allen [facility] Start: 12-31-2023 End: 12-31-2023 ambulatory Miguel Allen Facility:[facility] Start: 12-27-2023 End: 12-27-2023 ambulatory MD Miguel Allen Facility:[facility] Start: 09-19-2023 End: 09-19-2023 ambulatory FELICIA SALAZAR Not Available Start: 08-29-2023 End: 08-29-2023 ambulatory MD Miguel Allen Work Phone: [facility] Work Phone: Start: 08-29-2023 End: 08-29-2023 Patient encounter procedure MD [facility] Work [facility]: Start: 08-29-2023 Registered Recurring MD Miguel Allen Work Phone: [facility] Work Phone: Start: 08-09-2023 End: 08-09-2023 ambulatory MD Miguel Allen Facility:[facility] Start: 08-08-2023 End: 08-08-2023 Admission to same day surgery center MD Miguel Allen Work Phone: [facility] [place] Work Phone: Start: 08-08-2023 End: 08-08-2023 ambulatory MD Miguel Allen Work Phone: [facility] Work Phone: Start: 07-25-2023 End: 07-25-2023 ambulatory MD Miguel Allen Work Phone: [facility] Work Phone: Start: 07-25-2023 End: 07-25-2023 Patient encounter procedure MD Miguel Allen Work Phone: [facility] Work Phone: Start: 07-25-2023 Registered Recurring MD Miguel Allen Work Phone: [facility] Work Phone: Start: 01-29-2023 End: 01-30-2023 ambulatory Alice Ryan MD Facility:[facility] Start: 12-25-2022 End: 12-26-2022 ambulatory Alice Ryan MD Facility:[facility] Start: 11-27-2022 End: 11-28-2022 ambulatory Alice Ryan MD Facility: [facility] Start: 11-13-2022 End: 11-14-2022 ambulatory Alice Ryan MD Facility: [facility] Start: 06-21-2022 End: 06-22-[address] GER KENNEDY . Facility:[facility] Start: 04-21-2022 End: 06-09-[address] GER KENNEDY . Facility:[facility] Start: 02-10-2022 End: 02-11-[address] GER KENNEDY . Facility:[facility] Start: 02-03-2022 End: 02-04-[address] GER KENNEDY . Facility:[facility] Start: 12-21-2021 End: 12-22-[address] SAMANTHA LOPES Facility:[facility] Start: 08-19-2021 End: 08-20-[address] GER KENNEDY . Facility:[facility] Start: 07-07-2021 End: 07-08-[address] TATIANA DOUGLAS Facility:[facility] Procedures Date Procedure Procedure Detail Performing Clinician Start: 02-06-2024 Complete blood count with white cell differential, automated Tatiana Douglas MD Work Phone: Start: 02-06-2024 Comprehensive metabolic panel Tatiana Douglas MD Work Phone: Start: 02-06-2024 PROTEIN ELECTRO, RANDOM URINE Tatiana Douglas MD Work Phone: Start: 08-22-2023 Radiologic examinati on, osseous survey, complete MD Miguel Allen Work Phone: Start: 08-17-2023 Dual energy X-ray absorptiometry MD Miguel Allen Work Phone: Start: 08-13-2023 Bone marrow sampling Sa keon Allen Start: 08-08-2023 Bone marrow sampling MD Miguel Allen Work Phone: Biopsy of breast Miguel Allen Comment on above: X2 Biopsy of thyroid Miguel ray Comment on above: X2 Bone graft Miguel Allen Comment on above: rt hip to right wris t Bone marrow sampling Miguel Allen Comment on above: 2016 Cataract (disorder) Miguel de león Comment on above: left eye Colonoscopy Miguel Allen Comment on above: 2019 Destructive procedure Miguel Allen Internal fixation of fracture Miguel Allen Comment on above: right wrist Malignant neoplasm o f skin (disorder) Miguel Allen Comment on above: basal cell excised l eft eyelid Mohs surgery Miguel Allen Comment on above: facial/ left cheek, September 2022, Dr. Palumbo Parathyroidectomy Miguel ray Comment on above: 2018 Repair of tendon Miguel Allen Comment on above: right thumb then rem oval of plate and screws right wrist Total abdominal hyst erectomy with bilateral salpingo-oophorectomy Miguel Allen Plan of Treatment Date Care Activity Detail Author Start: 07-31-2024 End: 07-31-2024 Patient encounter procedure 07/31/2024 10:10 AM EDT Office Visit [facility] [address] [place] [id number] Kamala Pierce MD [address] [place] [address] [facility] Start: 05-07-2024 End: 05-07-2024 [facility] [address] Comment on above: Arrived Start: 08-08-2023 End: 08-08-2023 [facility] Start: 08-08-2023 Bone marrow sampling [facility] Start: 1991 Screening for malign ant neoplasm of breast Mammogram [facility] Start: 1950 Screening for malign ant neoplasm of colon [facility] [id number] [Mass/volume] in Serum or Plasma [facility] [id number] [Mass/volume] in Serum or Plasma [facility] Bone marrow sampling [facility] Ceruloplasmin [Mass/volume] in Serum or Plasma [facility] Comprehensive metabo lic 2000 panel - Serum or Plasma [facility] Copper measurement [facility] DXA Skeletal system.axial Views for bone density [facility] FREE K+L LT CHAINS, QN, S FREE K+L LT CHAINS, QN, S Lab Routine 02/06/2024 9:15 AM EST [facility] Work Phone: Patient Education [facility]row Aspiration or Biopsy Know your Meds [facility] Work Phone: [facility] Immunizations Immunization Date Immunization Notes Care Provider Fa cility 12-14-2023 influenza virus vacc ine, unspecified formulation Miguel Allen [facility] 12-13-2021 SARS-CoV-2 (COVID-19 ) [id number] Miguel Allen [facility] Comment on above: Result Comment: 2022: [id number] 12-05-2021 influenza virus vacc ine, unspecified formulation Miguel Allen [facility] 08-22-2021 SARS-CoV-2 (COVID-19 ) mRNA-1273 vaccine Miguel Allen [facility] Comment on above: Result Comment: 2022: [id number] 01-03-2021 SARS-CoV-2 (COVID-19 ) mRNA-1273 vaccine Miguel Allen [facility] Comment on above: Result Comment: 2022: [id number] 05-11-2020 SARS-CoV-2 (COVID-19 ) mRNA-1273 vaccine Miguel Allen [facility] 04-14-2020 SARS-CoV-2 (COVID-19 ) mRNA-1273 vaccine Miguel Allen [facility] 12-03-2019 pneumococcal polysaccharide vaccine, 23 valent Miguel Allen [facility] 11-21-2018 pneumococcal conjuga te vaccine, 13 ansley Allen [facility] 04-27-2016 influenza virus vacc ine, unspecified formulation Miguel Allen [facility] 12-04-2014 influenza virus vacc ine, unspecified formulation Miguel Allen [facility] Payers Date Payer Category Payer Private Health Insurance [employer] [id number] 2023 Self-pay [id number] 2023 Unknown [id number] 2022 Unknown 2016 Medicare 1958 Medicare [id number] 1959 Unknown [id number] 1951 Unknown [id number]. 2.593 1951 Unknown [id number] [id number]. 2.593 1951 Unknown [id number] [id number]. 2.593 1951 Unknown [id number] [id number]. 2.593 1951 Unknown [id number] 2.16.840.1.571462.3.579. 2.593 1951 Unknown [id number] [id number]. 2.593 1951 Unknown [id number] [id number]. 2.593 1951 Unknown [id number] [id number]. 2.196 1950 Unknown [id number] [id number]. 2.196 1950 Unknown [id number] 2.16.840.1.126386.3.579. 2.196 1950 Unknown [id number] 2.16.840.1.410468.3.579. 2.196 1950 Unknown [id number] 2.16.840.1.203292.3.579. 2.1259 1950 Unknown [id number] 2.16.840.1.281858.3.579. 2.1259 1950 Unknown [id number] 2.16.840.1.354172.3.579. 2.727 1950 Unknown [id number] 2.16.840.1.803505.3.579. 2.727 1950 Unknown [id number] 2.16.840.1.919267.3.579. 2.727 1950 Unknown [id number] 2.16.840.1.714360.3.579. 2.727 1950 Unknown [id number] 2.16.840.1.783548.3.579. 2.727 1950 Unknown [id number] 2.16.840.1.008613.3.579. 2.727 1950 Unknown [id number] 2.16.840.1.600989.3.579. 2.727 Unknown [facility] [id number] Unknown [id number] 2.16.840.1.567342.3.579. 2.531 Unknown [id number] 2.840.1.273724.3.579. 2.531 Social History Date Type Detail Facility [facility] Work Phone: Start: 1950 Sex Assigned At Female F [facility] Start: 07-25-2023 End: 12-27-2023 Tobacco smoking status NHIS Never smoked tobacco (finding) [facility] Start: 09-19-2023 End: 05-07-2024 [facility] Start: 09-19-2023 Tobacco smoking stat [facility] Smokes tobacco daily [facility] History of tobacco use Cigarette Smoker [facility] Start: 09-19-2023 Tobacco use and exposure Smokeless tobacco non-user [facility] Start: 09-19-2023 End: 05-07-2024 Alcoholic beverage intake Not Asked [facility] Start: 09-19-2023 End: 05-07-2024 History of Social function [facility] Start: 1950 Sex assigned at Not on file [facility] Clinical Notes 12-31-2023 to 05-07-2024 Felicia Salazar NP - 05/07/2024 11:00 AM EST Note Date & Type Note Facility 05-07-2024 History of Present illness Narrative Images from the original note were not included. Chief Complaint Patient presents with Back Pain Numbness Subjective Sina Perez is a 74 y.o. female. History of Present Illness The patient presents today for follow-up. She has been doing well since the prior neurology appointment 09/19/2023. She denies any significant change in symptoms and denies any new neurologic concerns. She believes she most recently saw pain management in March 2023. She has not needed to return to their office since that time due to stability of her back pain but states she can follow up with them if needed. She has been walking on a treadmill for physical activity. The patient's low back pain has improved. It does not radiate to the buttock recently. It is intermittently uncomfortable, and she describes it as, pressing. It can be aggravated by certain physical activities and lifting objects. It can be worse in the morning upon waking and improves throughout the day. She states, once I'm up and moving around, it generally goes away for the most part. The patient is experiencing very short-lasting paroxysms of pain down the leg. She states her feet will occasionally go numb while standing at the sink when she washes dishes. She reports intermittent muscle cramps in the calves. She also reports chronic urinary urgency and frequency which she attributes to diuretic use. She denies saddle anesthesia, urinary incontinence, bowel dysfunction, buckling of the knees, or extremity weakness. She has fallen once since the prior neurology appointment but denies related injury, hitting her head, or loss of consciousness. She states she fell getting into her 's truck. He does not have a running board, and she sat down too close to the edge of the seat and slid off onto the curb. She utilizes a walker or quad cane when ambulating. Her balance has remained generally unchanged and has not subjectively worsened. She is using Tylenol as needed which is helpful for her back pain. She takes Aleve rarely (only if Tylenol is ineffective), and this is also helpful. The reports intermittent numbness in the left hand (1st through 3rd digits) with onset prior to 2018. This does not interfere with her activities. She denies weakness or impaired coordination of the left upper extremity. She denies neck pain. She denies having an EMG of the LUE completed. She states she will shake her hand, and the symptoms resolve. She tried a wrist brace in the past which was, more annoying than helpful. No further new concerns reported. Of note, the patient also follows with Dr. 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 She states hematology completed a bone marrow biopsy which revealed, 5-7% of cells were M proteins. She states they are working her up for myeloma. Review of Systems Constitutional: Negative for appetite change, chills, fatigue, fever and unexpected weight change. HENT: Negative for trouble swallowing and voice change. Eyes: The patient states she is legally blind in the left eye (reportedly since ). Negative for visual change, double vision or loss of vision Respiratory: Negative for cough, shortness of breath and wheezing. Cardiovascular: Negative for chest pain and palpitations. Gastrointestinal: Negative for abdominal pain, blood in stool, nausea and vomiting. Musculoskeletal: Positive for arthralgias and back pain (low back). Negative for gait problem and myalgias. Neurological: Positive for numbness. Negative for dizziness, tremors, seizures, syncope, facial asymmetry, speech difficulty, weakness, light-headedness and headaches. Positive for paresthesias Psychiatric/Behavioral: Negative for confusion, hallucinations and suicidal ideas. The patient is not nervous/anxious. Home Medication List acetaminophen 650 MG ER tablet; Commonly known as: Tylenol 8 Hour Aleve 220 MG tablet; Generic drug: naproxen sodium atorvastatin 10 MG tablet; Commonly known as: Lipitor cholecalciferol 50 MCG (2000 UT) capsule; Commonly known as: Vitamin D-3 furosemide 20 MG tablet; Commonly known as: Lasix hydroxychloroquine 200 MG tablet; Commonly known as: Plaquenil ketoconazole 2 % cream; Commonly known as: NIZOral levothyroxine 50 MCG tablet; Commonly known as: Synthroid, Levoxyl lisinopril 10 MG tablet metroNIDAZOLE 0.75 % cream; Commonly known as: Metrocream potassium chloride ER 10 MEQ ER capsule; Commonly known as: Micro-K triamcinolone 0.1 % cream; Commonly known as: Kenalog Past Medical History: Diagnosis Date Autoimmune disorder (CMS/HCC) Carpal tunnel syndrome GERD (gastroesophageal reflux disease) Hyperlipidemia (CMS/HCC) Hypertension (CMS/HCC) Hypothyroidism (CMS/HCC) Infertility, female Osteoarthritis Osteoporosis (CMS/HCC) Sjogren's syndrome (CMS/HCC) Thyroid disorder (CMS/HCC) Past Surgical History: Procedure Laterality Date BASAL CELL CARCINOMA EXCISION from left nose BREAST BIOPSY x2 OTHER SURGICAL HISTORY Anesthesia problems TOTAL ABDOMINAL HYSTERECTOMY W/ BILATERAL SALPINGOOPHORECTOMY Family History Problem Relation Name Age of Onset Coronary artery disease Mother Hyperlipidemia Mother Hypertension Mother Alcohol abuse Mother Irritable bowel syndrome Mother Osteoporosis Mother Cancer Father Allergies Sister Social History Tobacco Use Smoking status: Every Day Types: Cigarettes Smokeless tobacco: Never Substance Use Topics Alcohol use: Not on file Allergies: Bactrim [sulfamethoxazole-trimethoprim], Gabapentin, Latex, Meperidine, Meperidine hcl, Morphine, Oxycodone, Sulfa antibiotics, and Trimethoprim Vitals: 05/07/24 1100 BP: 142/86 Pulse: 75 SpO2: 97% Body mass index is 34.07 kg/m . Weight: 163 lb Neurologic exam: Mental status and general appearance: Awake and alert with unlabored respirations. Oriented to person, place, and time. Recent and remote memory are intact. Speech is clear and fluent without aphasia. Speech is non-dysarthric. Attention and concentration are normal. Fund of knowledge is appropriate for level of education. Pleasant. Cranial nerves: CN II: Visual acuity is normal on the right. Visual sim full to confrontation on the right. Visual acuity is decreased on the left (chronic). CN III, IV, : Pupils are equal, round, and reactive to light. Extraocular movements intact. No ptosis present. CN V: Facial sensation is normal. CN VII: Full and symmetric facial movement. CN VIII: Hearing is normal to finger rub bilaterally. CN IX and X: Palate elevates symmetrically. CN XI: Shoulder shrug is normal bilaterally. CN XII: Tongue is midline without atrophy or fasciculation. Motor: RUE strength deltoid , biceps , triceps , wrist extensors , wrist flexor , and stemmer machine strength 5/5. LUE strength deltoid , biceps , triceps , wrist extensors , wrist flexor , and stemmer machine strength 5/5. RLE strength iliopsoas, quadriceps, tibialis anterior, and plantar flexion strength 5/5. LLE strength iliopsoas, quadriceps, tibialis anterior, and plantar flexion strength 5/5. Tone is normal. Sensory: Sensation is intact to light touch throughout all four extremities. Sensation is intact to temperature in all extremities. Vibratory sensation is intact but reduced in the distal lower extremities. Reflexes: RUE biceps reflex 2+ , brachioradialis reflex 2+. LUE biceps reflex 2+ , brachioradialis reflex 2+. RLE knee reflex 0. LLE knee reflex 0. Coordination: [id number] testing normal. Rapid alternating movements are normal. Gait: Steady with use of assistive device. Review and summary of old records: EMG of the bilateral lower extremities on 02/16/22: Bilateral chronic L5 motor radiculopathies which are moderate in degree electrically MRI of the lumbar spine on 02/10/22: Moderate to severe degenerative changes resulting in canal and foraminal stenosis at multiple levels. Most significant changes are at L2-L3, L3-L4 and L4-L5. X-ray of the lumbar spine with 4 views on 02/03/22: Moderate to severe degenerative changes. Assessment/Plan Diagnoses and all orders for this visit: Lumbosacral radiculopathy It is my impression that the patient has lumbosacral radiculopathy. The patient reports low back pain with intermittent radicular symptoms in the L5/S1 dermatomal distribution. Also, with intermittent numbness in the bilateral feet. BLE EMG on 02/16/22 revealed bilateral L5 radiculopathies without evidence of neuropathy. MRI of the lumbar spine on 02/10/22 revealed multilevel spondylosis from L2-S1 with varying degrees central canal narrowing and neuroforaminal narrowing. MRI revealed moderate to severe central canal stenosis at L3-L4; normal cord signal and no other severe stenosis. Bilateral L4 epidural injections on 09/26/22 were beneficial (> 50% pain reduction), though effects were short-lived, so the patient was referred to pain management. Radiofrequency ablation in late 2022 was highly effective. The patient reports stability of symptoms recently and believes her pain and paresthesias are well managed/tolerable. She is taking PRN Tylenol which is helpful. Tizanidine was ineffective previously, and gabapentin was not tolerated due to side effects. PLAN: - Follow up with pain management as needed. I will defer procedural interventions for pain control to them at this time - We have discussed potential referral to neurosurgery. The patient is not interested in neurosurgery evaluation at this time and has noticed symptom improvement with conservative measures thus far. She understands that, without surgery, she could develop progressively worsening sensory disturbance, weakness, back pain, etc. - I advised the patient to notify the office immediately or seek acute evaluation in the emergency department should she develop difficulty controlling her bowels/bladder, lower extremity weakness, buckling of the knees, sensory loss, worsening sensory symptoms or saddle-distribution anesthesia. She verbalizes understanding DDD (degenerative disc disease), lumbar See above. Gait instability The patient previously presented with left leg weakness which was felt to be related to lumbar radiculopathy and contributing to gait instability/falls. Physical therapy subjectively improved her strength and balance immensely. The patient denies any recent weakness or balance difficulty. No focal weakness is appreciated on exam again today. She reports infrequent falls. PLAN: - I encouraged the use of a walker/cane when ambulating for increased stability - Continue fall prevention measures Sjogren's syndrome, with unspecified organ involvement (HCC) ([facility]/HCC) The patient is established with rheumatology for unspecified Sjogren's disease (SICCA syndrome per some notes from PCP). PLAN: - Follow up closely with rheumatology for management Numbness of left hand The patient reports intermittent numbness in the 1st through 3rd digits of the left hand. This does not negatively impact her ability to perform activities, and she denies hand weakness or impaired hand function. Given the clinical description and lack of proximal LUE symptoms, I am most suspicious for mild left carpal tunnel syndrome. PLAN: - I recommended EMG of the left upper extremity to help determine the most likely etiology and severity of the patient's symptoms. The patient declined EMG at this time. She understands the underlying pathology may be missed without this workup, and this could lead to inadequate treatment and worsening symptoms/prognosis. She accepts this risk - The patient may use the left cock-up wrist splint at bedtime if helpful for her symptoms, however, she states this has been ineffective in the past The patient would like to follow up in the office on an as-needed basis at this point. She has been encouraged to notify our office should she develop any new or worsening neurologic symptoms or concerns. Would be happy to see her back and further evaluate. Diagnosis and treatment options discussed in detail. All questions answered. The patient verbalizes understanding and is agreeable to the plan. Discussion in layman's terms. Follow up in the office as needed. Felicia Salazar NP [facility] Advanced Neurology documented in this encounter [facility] 12-31-2023 Note Nurse Consultation N ote Reason for Visit Patient came in today for lab draw Medications acetaminophen, 650 mg, PRN atorvastatin 10 mg Tab, 10 mg= 1 tab(s), Oral, Daily, 4 refills carboxymethylcellulose-sodium hyaluronate, See Instructions fluocinonide Top 0.05% Crm 15 gram, See Instructions furosemide 20 mg Tab, See Instructions, 4 refills hydroxychloroquine 200 mg Tab, See Instructions ketoconazole, 2 %, Topical, Daily, PRN ketoconazole Top 2% Shampoo, 1 torrie, Topical, Every other day levothyroxine 50 mcg (0.05 mg) Tab, 50 mcg= 1 tab(s), Oral, Daily, 1 refills lisinopril 10 mg Tab, 10 mg= 1 tab(s), Oral, Daily, 1 refills metronidazole topical 1% cream, 1 torrie, Topical, BID naproxen, 500 mg, Oral, PRN Potassium Chloride (Tdj-Nczr-Wkc 10) 10 mEq oral tablet, extended release, 10 mEq= 1 tab(s), Oral, Daily, 1 refills Vitamin D3 2000 intl units oral Tab, 50 mcg, Oral, Daily Allergies Demerol (Nausea) Neurontin (Unknown) Percocet (Nausea) morphine (Nausea) sulfa drugs (Unknown) Immunizations Vaccine Date Status Comments influenza virus vaccine, inactivated 12/14/2023 Recorded SARS-CoV-2 (COVID-19) [id number] 12/13/2021 Recorded 2022-07-24: TPV70 influenza virus vaccine, inactivated 12/05/2021 Recorded SARS-CoV-2 (COVID-19) mRNA-1273 vaccine 08/22/2021 Recorded 2022-07-24: TPV70 SARS-CoV-2 (COVID-19) mRNA-1273 vaccine 01/03/2021 Recorded 2022-07-24: TPV65 SARS-CoV-2 (COVID-19) mRNA-1273 vaccine 05/11/2020 Recorded SARS-CoV-2 (COVID-19) mRNA-1273 vaccine 04/14/2020 Recorded pneumococcal 23-valent vaccine 12/03/2019 Recorded pneumococcal 13-valent vaccine 11/21/2018 Recorded influenza virus vaccine, inactivated 04/27/2016 Recorded influenza virus vaccine, inactivated 12/04/2014 Recorded [facility] Evaluation + Plan note Future Appointments Appointment Date:07/07/2024 09:15:00 AM Scheduled Provider:Miguel Allen MD Location:[facility]athy Appointment Type: Open Appointment Date:12/25/2024 09:30:00 AM Scheduled Provider: Location:[facility] Appointment Type: Medicare Wellness Subsequent Diagnostic Tests PendingHCV Antibody RFX to Quant PCR 12/31/23 [facility] Evaluation note No assessment inform ation available [facility] Work Phone: Evaluation note Diagnosis Onset Date Peripheral neuropathy acute History of parathyroidectomy chronic MGUS (monoclonal gammopathy of unknown significance) chronic Osteoporosis chronic Sjogrens syndrome chronic [facility] Work Phone: Evaluation note* Diagnosis Onset Date Resolution Status Peripheral neuropathy acute History of parathyroidectomy chronic MGUS (monoclonal gammopathy of unknown significance) chronic Osteoporosis chronic Sjogrens syndrome chronic MGUS (monoclonal gammopathy of unknown significance) chronic Peripheral neuropathy acute History of parathyroidectomy chronic MGUS (monoclonal gammopathy of unknown significance) chronic Osteoporosis chronic Sjogrens syndrome chronic [facility] Work Phone: Evaluation note* Diagnosis Lumbar radiculopathy- Primary Thoracic or lumbosacral neuritis or radiculitis, unspecified Degeneration of intervertebral disc of lumbar region, unspecified whether pain present Gait instability Abnormality of gait Sjogren's syndrome, with unspecified organ involvement (HCC) (CMS/HCC) Numbness of left hand [facility] Narr[facility] No data available for this section [facility] Hospital Discharge instructions No data available for this section [facility] Progress note Author Tatiana Douglas [facility] July 25, 2023 2:25pm Note Date/Time July 25, 2023 10:06 am [facility] [place] [address] Cancer Center Note Signed Patient: Sina Perez MR#: [id number] : 1950 Acct:[id number] Age/Sex: 73 / F Type: DEP AMB Date of Service: 07/25/23 Copies to: Ger Kennedy MD~ Assessment & Plan A/P (1) [...] to pain injections and spinal ablation at [facility]. M spikehas now trended up to 0.1. [...] Plan: We are requesting outside records from [facility] for her spinal procedures for peripheral neuropathy and any imaging that they have performed. Proceed with bone marrow biopsy for workup of possible progression of MGUS to myeloma. (3) Osteoporosis: Plan: Due to hypercalcemia the [facility] which revealed lumbar spine T score 1.1, normal range and right femoral neck T score -2.8 consistent with osteoporosis. This should be repeatedevery 2 years, and she remains on Boniva therapy without calcium and vitamin D due to hypercalcemia. No acute bony abnormalities are punched out lytic lesions on bone survey 01/19/2021 at [facility]. -- Patient was told by Dr. Lopes [...] to genetics ( sees clinic here at [facility] once monthly) for evaluation of multiple [...] with labs prior. Please request records from [facility] from February 2023. CHEMO PLAN No Active Chemotherapy History of Present Illness HPI 07/25/2023: Sina is here for 2-year follow-up of MGUS. When I last saw her in clinic, I referred back to primary care and nephrology for following her symptoms, however she was asked to return for review of her laboratories. Sincebety was last seen she underwent 3 nerve block procedures at [facility] with neurology (Dr. Cox), then was referred [...] Serum immunofixation shows IgG lambda monoclonal protein. [place]/lambda light chain ratio is normal however there [...] aspiration and biopsy as well as F-18 whole- body PET/CT to complete her staging and will follow-up for results and possible therapy if indicated in about 3 weeks. DEXA scan also ordered to follow-up osteoporosis from 2020. High complexity 45-minute follow-up to review extensive outside records and to discuss potential therapy options for worsening neuropathy with MGUS (versus possible progression to myeloma). 07/14/2021: Sina is here for 6-month follow-up of MGUS, previously followed about 4 years ago. She has not had any change in symptoms with stable sicca syndrome, persistent joint stiffness on Plaquenil. Labs from [facility] reviewed from 07/07/2021 showing normal CBC, normal [...] She also had a thyroid ultrasound at [facility] which is not available for my review [...] 0.5% (Refresh Tears) 1 drp ophthalmic (eye) 4- 12XDPRN cholecalciferol (vitamin D3) 50 mcg PO DAILY [...] visit for MGUS and go over labs [facility] Medical History Medical History Fibromyalgia Multinodular goiter [...] Total Protein 7.1 Albumin 4.4 Globulin 2.7 [facility] labs reviewed: White blood cell count 5500, [...] <Electronically signed by MD Tatiana Douglas> 07/25/23 [id number] Work Phone: Progress note No data available for this section [facility] Summary Purpose Family History Relationship Condition Age at Onset Recorded Date/T yenni father Malignant neoplasm of pancreas Unknown Advance Directives Advance Directive Response Recorded Date/ Time Advance [...] section and content) DATE CREATED AUTHOR 08/13/2021 [facility] Center DATE CREATED AUTHOR AUTHOR'S ORGANIZ ATION 07/05/2022 [facility] DATE CREATED AUTHOR AUTHOR'S ORGANIZ ATION 02/02/2023 [facility] DATE CREATED AUTHOR AUTHOR'S ORGANIZ ATION 01/01/2024 [place] [facility] DATE CREATED AUTHOR AUTHOR'S ORGANIZ ATION 01/02/2024 [facility] DATE CREATED AUTHOR AUTHOR'S ORGANIZ ATION 01/03/2024 [facility] Center DATE CREATED AUTHOR AUTHOR'S ORGANIZ ATION 02/24/2024 [facility] DATE CREATED AUTHOR AUTHOR'S ORGANIZ ATION 05/09/2024 [facility] dical Specialists [facility] DATE CREATED AUTHOR AUTHOR'S ORGANIZ ATION 07/01/2024 [facility] Center DATE CREATED AUTHOR AUTHOR'S ORGANIZ ATION 07/02/2024 [facility] ica Center Goals (unrecognized section and content) Goals may be documented in a n alternate sectionGoals may be documented in an alternate sectionGoals may be documented in an alternate sectionGoals may be documented in an alternate section No data available for this section Care Teams (unrecognized sec tion and content) Team Status: Active Member Role Status Dates Miguel Allen MD Primary Care Provider Active Team Status: Inactive Member Role Status Dates Ger Kennedy MD Primary Care Provider Active S [...] Care Provider Active Start: July 25, 2023 Set O Type Operator Relationship Specialty Start Date End Date Miguel Allen MD PCP - General Family Medicine 09/19/23 Set O Type Operator Relationship Specialty Start Date End Date Miguel Allen MD PCP - General Family Medicine 09/19/23 Set O Type Operator Relationship Specialty Start Date End Date Miguel Allen MD [address] [place] [id number] PCP - General Family Medicine 05/01/24 Felicia Salazar NP [address] [phone] Nurse Practitioner Neurology 05/07/24 Set O Type Operator Relationship Specialty Start Date End Date Miguel Allen MD [address] [place] [id number] PCP - General Family Medicine 05/01/24 Felicia Salazar NP [address] [place] [address], [place] [phone] Nurse Practitioner Neurology 05/07/24 Adithya Thomas DO [address] [place] [id number] Referring Physician Neurology 05/07/24 Reason for Visit (unrecogniz ed section and content) Reason Comments Back Pain Numbness FOR RECORDS PERTAINING TO PATIENTS WHO ARE [...] BE BASED ON THE PRIMARY CLINICAL RECORDS. [facility]. provides no warranty or guarantee of the accuracy or completeness of information in this document.
[2024-07-15 21:09] VITALS: BP 160/82; PULSE 72; TEMP 36.8; O2SAT 96; BMI 32.7
--- NOTE | 2024-07-15 21:42 | ED.GENADUL1 ---
HPI HPI - General Adult General Chief complaint: Eye Problems Stated complaint: RIGHT EYE DRAINAGE Time Seen by Provider: 07/15/24 21:33 Source: patient Mode of arrival: walk-in Limitations: no limitations History of Present Illness HPI narrative: The patient is a 74-year-old female who presents to the emergency department today for evaluation of concerns for pinkeye. She endorses that she woke up this morning with a purulent drainage with constant tearing and redness to her right eye. She mention she has had URI symptoms over the past few days. No fever. She denies any coughing. No injuries to the eye. She denies any vision difficulties to the affected right eye. No fevers or headaches. She reports she does wear glasses however no contacts. Related Data Home Medications ?Medication ?Instructions ?Recorded ?Confirmed atorvastatin 10 mg tablet 10 mg PO QDAY 11/23/22 07/15/24 furosemide 20 mg tablet 20 mg PO QDAY 11/23/22 07/15/24 hydroxychloroquine 200 mg tablet 155 mg PO 11/23/22 ibandronate 150 mg tablet mg PO 11/23/22 levothyroxine 50 mcg tablet 50 mcg PO QDAY 11/23/22 07/15/24 lisinopril 10 mg tablet 10 mg PO QDAY 11/23/22 07/15/24 potassium chloride 10 mEq 10 meq PO QDAY 11/23/22 07/15/24 tablet,extended release Previous Rx's ?Medication ?Instructions ?Recorded frmkoplv-aawduazwj-ldxaksvn 3.5 1 drp ophthalmic (eye) Q6H #5 mL 07/15/24 mg/mL-10,000 unit/mL-0.1% eye drops (Maxitrol) Allergies Allergy/AdvReac Type Severity Reaction Status Date / Time gabapentin Allergy Mild Anaphylaxis Verified 07/15/24 21:15 Sulfa (Sulfonamide Allergy Mild Hives Verified 07/15/24 21:15 Antibiotics) sulfamethoxazole (From Allergy Mild Anaphylaxis Verified 07/15/24 21:15 Bactrim) trimethoprim (From Bactrim) Allergy Mild Anaphylaxis Verified 07/15/24 21:15 acetaminophen (From Percocet) AdvReac Mild Nausea Verified 07/15/24 21:15 meperidine (From Demerol) AdvReac Mild Nausea Verified 07/15/24 21:15 morphine AdvReac Mild Vomiting Verified 07/15/24 21:15 oxycodone (From Percocet) AdvReac Mild Vomiting Verified 07/15/24 21:15 Opioid HPI Opioid Management Most Recent Opioid Data: Last Pain Scale 3 01/29/23, 07:44 Review of Systems ROS Status of ROS 10 or more systems reviewed and unremarkable except as noted in history and below [facility] Medical History Family history of drug abuse ?Z81.3 - Family history of other psychoactive substance abuse and dependence (ICD-10) Family history of alcohol abuse ?Z81.1 - Family history of alcohol abuse and dependence (ICD-10) HAFSA positive ?R76.8 - Other specified abnormal immunological findings in serum (ICD-10) Blindness ?H54.7 - Unspecified visual loss (ICD-10) Osteoarthritis ?M19.90 - Unspecified osteoarthritis, unspecified site (ICD-10) Basal cell carcinoma ?C44.91 - Basal cell carcinoma of skin, unspecified (ICD-10) Obesity ?E66.9 - Obesity, unspecified (ICD-10) Osteopenia ?M85.80 - Other specified disorders of bone density and structure, unspecified site (ICD-10) Heartburn ?R12 - Heartburn (ICD-10) Hiatal hernia ?K44.9 - Diaphragmatic hernia without obstruction or gangrene (ICD-10) Acid reflux ?K21.9 - Gastro-esophageal reflux disease without esophagitis (ICD-10) 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 and other parts of nervous system (ICD-10) Hypothyroid ?E03.9 - Hypothyroidism, unspecified (ICD-10) MGUS (monoclonal gammopathy of unknown significance) ?D47.2 - Monoclonal gammopathy (ICD-10) Sjogren's disease ?M35.00 - Sjogren syndrome, unspecified (ICD-10) Renal insufficiency ?N28.9 - Disorder of kidney and ureter, unspecified (ICD-10) Asthma ?J45.909 - Unspecified asthma, uncomplicated (ICD-10) Syncopal episodes ?R55 - Syncope and collapse (ICD-10) Hypertension ?I10 - Essential (primary) hypertension (ICD-10) High cholesterol ?E78.00 - Pure hypercholesterolemia, unspecified (ICD-10) SVT (supraventricular tachycardia) ?I47.1 - Supraventricular tachycardia (ICD-10) Surgical History H/O prior ablation treatment ?Z98.890 - Other specified postprocedural states (ICD-10) History of phacoemulsification of cataract of left eye with intraocular lens implantation ?Z98.42 - Cataract extraction status, left eye (ICD-10) ?Z96.1 - Presence of intraocular lens (ICD-10) H/O breast biopsy ?Z98.890 - Other specified postprocedural states (ICD-10) H/O thyroidectomy ?E89.0 - Postprocedural hypothyroidism (ICD-10) H/O parathyroidectomy ?E89.2 - Postprocedural hypoparathyroidism (ICD-10) H/O thumb surgery ?Z98.890 - Other specified postprocedural states (ICD-10) H/O wrist surgery ?Z98.890 - Other specified postprocedural states (ICD-10) H/O wrist surgery ?Z98.890 - Other specified postprocedural states (ICD-10) History of hysterectomy ?Z90.710 - Acquired absence of both cervix and uterus (ICD-10) Social History Little interest or pleasure in doing things: not at all Feeling down, depressed, or hopeless: not at all Exam Narrative Exam Narrative: Constituational: Awake/ alert, no apparent distress, well hydrated HENMT: normocephalic, external ears normal, moist oral mucous membranes and oropharynx normal Eyes: + Purulent drainage with conjunctival injection to right eye, normal eyelids bilaterally, EOMI, PERRL. Neck: ROM intact Chest: inspection of chest normal Respiratory: Normal respiratory effort MSK: ROM intact, +NVI Skin: no rashes or petechiae Neuro: no focal deficits Psych: mental status grossly normal Constitutional Vital Signs, click to edit/add: Last Vital Signs Temp 98.2 F 07/15/24 21:09 Pulse 77 07/15/24 21:54 Resp 18 07/15/24 21:54 BP 151/98 H 07/15/24 21:54 Pulse Ox 96 07/15/24 21:54 O2 Del Method Room Air 07/15/24 21:54 Course Vital Signs Vital signs: Vital Signs Temperature 98.2 F 07/15/24 21:09 Pulse Rate 72 07/15/24 21:09 Respiratory Rate 18 07/15/24 21:09 Blood Pressure 160/82 H 07/15/24 21:09 Pulse Oximetry 96 07/15/24 21:09 Oxygen Delivery Method Room Air 07/15/24 21:09 Temperature 98.2 F 07/15/24 21:09 Pulse Rate 77 07/15/24 21:54 Respiratory Rate 18 07/15/24 21:54 Blood Pressure 151/98 H 07/15/24 21:54 Pulse Oximetry 96 07/15/24 21:54 Oxygen Delivery Method Room Air 07/15/24 21:54 Medical Decision Making MDM Narrative Medical decision making narrative: The 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 Initial examination patient with clinical evidence consistent with conjunctivitis to the right eye as evidenced by purulent drainage with tearing and conjunctival injection. Evidence of orbital or periorbital cellulitis. Directly had endorsed some mild URI symptoms including nasal congestion with onset of presentation of symptoms with the eye. Discussed these findings with the patient including recommendations for supportive care. Will discharge home with ophthalmic antibiotic drops. Advised on follow-up with patient's primary care provider and/or her evening or night nurse supervisor for reevaluation. Discussed signs and symptoms of any worsening condition and when to consider reevaluation. Patient verbalized an understanding of this and is agreeable with the plan to be discharged home. Medical Records Medical records reviewed: Yes I reviewed the patient's medical records Discharge Plan Discharge Chief Complaint: Eye Problems Clinical Impression: Conjunctivitis Patient Disposition: Home, Self-Care Mode of Transportation: Private Vehicle Prescriptions / Home Meds: New neomycin-polymyxin B-dexameth [Maxitrol] 3.5mg/mL-10,000 unit/mL-0.1 % drops,suspension 1 drp ophthalmic (eye) Q6H Qty: 5 0RF No Action atorvastatin 10 mg tablet 10 mg PO QDAY furosemide 20 mg tablet 20 mg PO QDAY lisinopril 10 mg tablet 10 mg PO QDAY hydroxychloroquine 200 mg tablet 155 mg PO potassium chloride 10 mEq tablet extended release 10 meq PO QDAY levothyroxine 50 mcg tablet 50 mcg PO QDAY ibandronate 150 mg tablet PO Print Language: Mohawk Instructions: Conjunctivitis (ED) Additional Instructions: Take antibiotics as prescribed for your eye infection. Wash all high touch surfaces and good hand hygiene as discussed. Please follow-up with your primary care provider and/or ophthalmology for reevaluation as discussed. Referrals: JEAN HAIR [Primary Care Provider, Family Practice] - 1 week Discharge Date/Time: 07/15/24 21:55
[2024-07-15 21:54] VITALS: BP 151/98; PULSE 77; O2SAT 96
== END 2024-07-15 21:55 | disposition home or self-care (01) ==
PROVIDERS: Emergency Provider Internal Medicine; PCP Family Medicine
DX: H10.9 Unspecified conjunctivitis (principal)
CPT/HCPCS: 99283

== ENCOUNTER 2024-08-13 09:49 | Outpatient (OUT) | payer MEDICARE, OTHER, SELFPAY ==
--- OUTSIDE RECORDS SUMMARY | 2024-07-31 10:10 | XMS_ITS | Encounter Summary ---
Author Organization [facility] Address [address] [place] [address] Care Team Providers Care Tool Repair Technician Name Role Phone Miguel Allen MD Primary Care Provider [phone] Felicia Bauer BODY MECHANIC APPRENTICE Unavailable [phone] Adithya Thomas DO Unavailable [phone] Reason for Visit * Reason Comments Hypercalcemia * Other Medical (Routine) - Closed Specialty Diagnoses / Procedures Referred By Contac t Referred To Contact Endocrinology Diagnoses Hypoparathyroidism, unspecified Other obesity due to excess calories Procedures [place] OFFICE/OUTPATIENT NEW LOW MDM 30 MINUTES Miguel Allen MD [address] [place] [address] Phone: tel: Kamala Pierce MD [address], [address] [place] [address] Phone: tel: fax: Referral ID Status Reason Start Date Expiration Date Visits Re quested Visits Authorized [id number] Closed 07/02/2024 12/29/2024 1 1 Encounter Details Date Type Department Care Team (Latest Contact Info) Description 07/31/2024 10:10 AM EDT Office Visit [facility] [address] [place] [address] Kamala Pierce MD [address] [place] [address] History of parathyroid surgery (Primary Dx); H/O partial thyroidectomy (CMS/HCC); Vitamin D deficiency Social History Tobacco Use Types Packs/Day Years Used Date Smoking Tobacco: Every Day Cigarettes Smokeless Tobacco: Never Tobacco Cessation:Ready to Q uit: Not Asked; Counseling Given: Not Answered Alcohol Use Standard Drinks/Week Comments Never 0 (1 standard drink = 0.6 oz pur e alcohol) Comments Unknown Sex and Gender Information Value Date Recorded Sex Assigned at Not on file Legal Sex Female 7:22 PM EDT Gender Identity Not on file Sexual Orientation Not on file documented as of this encounter Last Filed Vital Signs Vital Sign Reading Time Taken Comments Blood Pressure - - Pulse 73 07/31/2024 9:51 AM EDT Temperature - - Respiratory Rate 16 07/31/2024 9:51 AM EDT Oxygen Saturation 94% 07/31/2024 9:51 AM EDT Inhaled Oxygen Concentration - - Weight 74.4 kg (164 lb) 07/31/2024 9:51 AM EDT Height 149.9 cm (4' 11 ) 07/31/2024 9:51 AM EDT Body Mass Index 33.12 07/31/2024 9:51 AM EDT documented in this encounter Progress Notes * Kamala Pierce MD - 07/31/2024 10:10 AM EDT Misty Perez is a 74 y.o. female Miguel Allen MD presents with chief complaint of Hypercalcemia HPI: History of Present Illness The patient was last seen in 09/2018 and is here for a follow-up on her thyroid and parathyroid. She has a history of left inferior parathyroid surgery in 2018 and partial thyroidectomy. She is on levothyroxine 50 mcg daily. She has been supplementing with vitamin D, initially at a dosage of 1000 units, but recently increased it to 2000 units. Results Laboratory Studies Calcium level in February 2024 was within normal limits at 9.5 (normal range 8.6-10.3). GFR was also within normal limits. SUBJECTIVE: MEDICATIONS: Current Outpatient Medications Medication Instructions acetaminophen (TYLENOL 8 HOUR) 650 mg, Every 8 hours PRN atorvastatin (LIPITOR) 10 mg, Daily cholecalciferol (VITAMIN D-3) 2,000 Units furosemide (LASIX) 20 mg, Daily hydroxychloroquine (PLAQUENIL) 200 mg ibandronate (BONIVA) 150 mg, Every 30 days ketoconazole (NIZOral) 2 % cream 3 application , Daily levothyroxine (SYNTHROID, LEVOXYL) 50 mcg, Daily before breakfast lisinopril 10 mg, Daily metroNIDAZOLE (Metrocream) 0.75 % cream 2 application , 2 times daily naproxen sodium (ALEVE) 220 mg, Every 12 hours nortriptyline (PAMELOR) 10 mg omeprazole (PRILOSEC) 20 mg, Daily RT potassium chloride ER (Micro-K) 10 MEQ ER capsule 10 mEq, 2 times daily triamcinolone (Kenalog) 0.1 % cream 1 application , 2 times weekly ALLERGIES: Allergies Allergen Reactions Bactrim [Sulfamethoxazole-Trimethoprim] Gabapentin Latex Unknown Other Reaction(s): blisters at site of contact Meperidine GI intolerance Meperidine Hcl Nausea Only Morphine Nausea Only Oxycodone GI intolerance Sulfa Antibiotics Trimethoprim Hives Past Medical History: Diagnosis Date Anemia Autoimmune disorder (CMS/HCC) Carpal tunnel syndrome Fibromyalgia GERD (gastroesophageal reflux disease) Hyperlipidemia (CMS/HCC) Hypertension (CMS/HCC) Hypoparathyroidism, unspecified Hypothyroidism (CMS/HCC) Infertility, female MGUS (monoclonal gammopathy of unknown significance) Nonsmoker Obesity with body mass index (BMI) of 30.0 to 39.9 Osteoarthritis Osteoarthritis of knee Osteoporosis (CMS/HCC) Peripheral neuropathy Seborrheic keratosis Sjogren's syndrome (CMS/HCC) Thyroid disorder (CMS/HCC) Vitamin D deficiency Past Surgical History: Procedure Laterality Date BASAL CELL CARCINOMA EXCISION from left nose BONE MARROW BIOPSY 08/13/2023 BREAST BIOPSY x2 CATARACT EXTRACTION COLONOSCOPY FRACTURE SURGERY OTHER SURGICAL HISTORY Anesthesia problems PARATHYROIDECTOMY TENDON REPAIR THYROID BIOPSY TOTAL ABDOMINAL HYSTERECTOMY W/ BILATERAL SALPINGOOPHORECTOMY REVIEW OF SYMPTOMS: 14 POINT OF SYSTEM REVIEWED AND NEGATIVE OBJECTIVE: Visit Vitals Pulse 73 Resp 16 Ht 4' 11 Wt 164 lb SpO2 94% BMI 33.12 kg/m?? Smoking Status Every Day BSA 1.76 m?? Physical Exam Constitutional: Appearance: Normal appearance. She is normal weight. HENT: Head: Normocephalic and atraumatic. Right Ear: External ear normal. Nose: Nose normal. Mouth/Throat: Pharynx: Oropharynx is clear. Eyes: Extraocular Movements: Extraocular movements intact. Pupils: Pupils are equal, round, and reactive to light. Cardiovascular: Rate and Rhythm: Normal rate and regular rhythm. Pulmonary: Effort: Pulmonary effort is normal. Abdominal: General: Abdomen is flat. Palpations: Abdomen is soft. Musculoskeletal: General: Normal range of motion. Skin: General: Skin is warm. Neurological: General: No focal deficit present. Mental Status: She is alert. Psychiatric: Mood and Affect: Mood normal. Behavior: Behavior normal. ASSESSMENT AND PLAN: Assessment/Plan Diagnoses and all orders for this visit: History of parathyroid surgery - Vitamin D 25 hydroxy Total; Future - Renal function panel; Future - PTH, intact; Future H/O partial thyroidectomy (CMS/HCC) - T3, free; Future - T4, free; Future - TSH; Future Vitamin D deficiency - Vitamin D 25 hydroxy Total; Future Assessment & Plan 1. Post-parathyroidectomy status. She has a history of left inferior parathyroid surgery in 2017. Her calcium levels were within normal limits in February 2024 (9.5 mg/dL). A repeat calcium, PTH, and vitamin D test will be ordered toensure everything looks good. She will be seen again in 6 months to confirm that her levels are stable, after which annual visits will be scheduled. 2. Post-thyroidectomy status. She has a history of partial thyroidectomy and is currently on levothyroxine 50 mcg daily. A thyroid function test will be conducted to assess the need for any dosage adjustments. Follow-up The patient will follow up in 6 months. PROCEDURE The patient underwent left inferior parathyroid surgery in 2017 and partial thyroidectomy. documented in this encounter Plan of Treatment Upcoming Encounters Date Type Department Care Team (Late st Contact Info) Description 02/05/2025 10:00 AM EST Office Visit [facility] [address] [place] [address] Kamala Pierce MD [address] [place] [address] Scheduled Orders Name Type Priority Associated Diagnoses Orde r Schedule T3, free Lab Routine H/O partial thyroidectomy (CMS/HCC) Expected: 07/31/2024 (Approximate), Expires: 07/31/2025 T4, free Lab Routine H/O partial thyroidectomy (CMS/HCC) Expected: 07/31/2024 (Approximate), Expires: 07/31/2025 TSH Lab Routine H/O partial thyroidectomy (CMS/HCC) Expected: 07/31/2024 (Approximate), Expires: 07/31/2025 Vitamin D 25 hydroxy Total Lab Routine History of parathyroid surgery Vitamin D deficiency Expected: 07/31/2024 (Approximate), Expires: 07/31/2025 Renal function panel Lab Routine History of parathyroid surgery Expected: 07/31/2024 (Approximate), Expires: 07/31/2025 PTH, intact Lab Routine History of parathyroid surgery Expected: 07/31/2024 (Approximate), Expires: 07/31/2025 documented as of this encounter Visit Diagnoses Diagnosis History of parathyroid surgery- Primary H/O partial thyroidectomy (CMS/[facility]) Vitamin D deficiency documented in this encounter Care Teams Tool Repair Technician Relationship Specialty Start Date End Date Miguel Allen MD [address] [place], [place] [id number] PCP - General Family Medicine 05/01/24 Felicia Bauer NP [address] [address] Nurse Practitioner Neurology 05/07/24 Adithya Thomas DO [address] [id number] Referring Physician Neurology 05/07/24 documented as of this encounter
--- OUTSIDE RECORDS SUMMARY | 2024-08-13 09:51 | XMS_ITS | Clinical Summary ---
Author Organization [facility] Address [address] [place] [address] Phone Care Team Providers Care Commercial Credit Lead Name Role Phone Unavailable Primary Care Provider Unavailabl e Social History Tobacco Use Types Packs/Day Years Used Date Smoking Tobacco: Never Assessed Comments Unknown Sex and Gender Information Value Date Recorded Sex Assigned at Not on file Legal Sex Female 3:37 AM EST Gender Identity Not on file Sexual Orientation Not on file Plan of Treatment Not on file
--- OUTSIDE RECORDS SUMMARY | 2024-08-13 09:51 | XMS_ITS | Encounter Summary ---
Author Organization [facility] Address [address] [place] [address] Care Team Providers Care Design Engineering Manager Name Role Phone Miguel Allen MD Primary Care Provider [phone] Felicia Bauer CERTIFIED HISTOLOGIC TECHNICIAN Unavailable [phone] Adithya Thomas DO Unavailable [phone] Encounter Details Date Type Department Care Team (Late Contact Info) Description 07/31/2024 Bamboo flowsheet [facility] [address] [place] [address] Kamala Pierce MD [address] [place] [address] Social History Tobacco Use Types Packs/Day Years Used Date Smoking Tobacco: Every Day Cigarettes Smokeless Tobacco: Never Alcohol Use Standard Drinks/Week Comments Never 0 (1 standard drink = 0.6 oz pur e alcohol) Comments Unknown Sex and Gender Information Value Date Recorded Sex Assigned at Not on file Legal Sex Female 7:22 PM EDT Gender Identity Not on file Sexual Orientation Not on file documented as of this encounter Plan of Treatment Upcoming Encounters Date Type Department Care Team (Late st Contact Info) Description 02/05/2025 10:00 AM EST Office Visit [facility] [address] [place] [phone] Kamala Pierce MD [address] [place] [address] documented as of this encounter Visit Diagnoses Not on filedocumented in this encounter Care Teams Design Engineering Manager Relationship Specialty Start Date End Date Miguel Allen MD [address] [place] [address] PCP - General Family Medicine 05/01/24 Felicia Bauer NP [address] [address] Nurse Practitioner Neurology 05/07/24 Adithya Thomas DO [address] [address] Referring Physician Neurology 05/07/24 documented as of this encounter
--- OUTSIDE RECORDS SUMMARY | 2024-08-13 09:51 | XMS_ITS | Clinical Summary ---
Author Organization [facility] Address [facility] [place] [address] Care Team Providers Care School Photographs Detailer Name Role Phone Carol Kennedy MD Primary Care Provider Allergies Active Allergy Reactions Criticality Noted Date Comments Sulfamethoxazole-Trimethoprim Unknown 2014 Latex Unknown 09/01/2014 Sulfa (Sulfonamide Antibiotics) Unknown 08/05 Medications Ibandronate (BONIVA) 150 mg tablet Take 1 tablet by mouth once every month. 0 09/01/2014 Active Levothyroxine 75 mcg cap Take by mouth. 0 09/01/2014 Active lisinopril (ZESTRIL, PRINIVIL) 10 mg tablet Take 10 mg by mouth once daily. Active omeprazole (PRILOSEC) 20 mg capsule Take 20 mg by mouth once daily. Active Active Problems Problem Noted Date Diagnosed Date Disturbance of salivary secretion 09/28/2014 Family History Medical History Relation Comments Cancer Father Cancer Maternal Grandmother Heart Maternal Grandmother Heart Mother Heart Paternal Grandfather Relation Status Comments Father Maternal Grandmother Mother Paternal Grandfather Social History Tobacco Use Types Packs/Day Years Used Date Smoking Tobacco: Never Alcohol Use Standard Drinks/Week Comments No 0 (1 standard drink = 0.6 oz pur e alcohol) Comments Unknown Sex and Gender Information Value Date Recorded Sex Assigned at Not on file Legal Sex Female 2:06 PM EDT Gender Identity Not on file Sexual Orientation Not on file Last Filed Vital Signs Vital Sign Reading Time Taken Comments Blood Pressure 146/68 09/28/2014 2:41 PM EDT Pulse 75 09/28/2014 2:41 PM EDT Temperature 36.4 C (97.5 F) 09/28/2014 2:14 PM EDT Respiratory Rate 16 09/28/2014 2:41 PM EDT Oxygen Saturation 97% 09/28/2014 2:41 PM EDT Inhaled Oxygen Concentration - - Weight - - Height - - Body Mass Index - - Plan of Treatment Health Maintenance Due Date Last Done Comments Anxiety Screening 1969 Depression Screening 1969 Hepatitis C Screening 1969 DTaP,Tdap,Td Vaccine (1 - Tdap) [address] Colonography 1996 Cologuard (FIT-DNA) 1996 Colonoscopy 1996 Colorectal Cancer Screening 1996 Diabetes Screening 1996 Fecal Occult Blood 1996 Lipid Screening 1996 Sigmoidoscopy 1996 Pneumococcal Vaccine: 50+ (1 of 1 - PCV) 2001 Shingrix Vaccine (1 of 2) 2001 Bone Density Screening 2016 Covid-19 Vaccine (1 - season) 2023 Advance Directive Discussion 03/05/2024 Influenza Vaccine (Season Ended) 2024 RSV Vaccine (1 - 1-dose 75+ series) 2026 Care Teams School Photographs Detailer Relationship Specialty Start Date End Date Carol Kennedy MD [address] [id number] PCP - General Family Medicine 07/21/14
--- OUTSIDE RECORDS SUMMARY | 2024-08-13 09:51 | XMS_ITS | Clinical Summary ---
Author Organization [facility] Address [address] [place] [address] Care Team Providers Care Precision Machinist Name Role Phone Miguel Allen MD Primary Care Provider [phone] Felicia Bauer LINEN MANAGER Unavailable [phone] Adithya Thomas DO Unavailable Allergies Active Allergy Reactions Criticality Noted Date Comments Sulfamethoxazole-Trimethop rim 09/16/2023 Gabapentin 09/16/2023 Latex Unknown 09/01/2014 Other Reaction(s): blisters at site of contact Meperidine GI intolerance 08/29/2023 Meperidine Hcl Nausea Only 09/19/2023 Morphine Nausea Only 08/29/2023 Oxycodone GI intolerance 08/29/2023 Sulfa Antibiotics 09/16/2023 Trimethoprim Hives 08/29/2023 Medications triamcinolone (Kenalog) 0.1 % cream Apply 1 application topically 2 (two) times a week Active naproxen sodium (Aleve) 220 MG tablet Take 220 mg by mouth every 12 (twelve) hours Active acetaminophen (Tylenol 8 Hour) 650 MG ER tablet Take 650 mg by mouth every 8 (eight) hours if needed for mild pain Do not crush, chew, or split. Active cholecalciferol (Vitamin D-3) 50 MCG (1999 UT) capsule Take 2,000 Units by mouth Active furosemide (Lasix) 20 MG tablet Take 20 mg by mouth Daily Active lisinopril 10 MG tablet Take 10 mg by mouth Daily Active levothyroxine (Synthroid, Levoxyl) 50 MCG tablet Take 50 mcg by mouth in the morning. Take before meals. Active atorvastatin (Lipitor) 10 MG tablet Take 10 mg by mouth Daily Active hydroxychloroqu ine (Plaquenil) 200 MG tablet Take 200 mg by mouth TWICE A DAY - BUT ALTERNATE EVERY OTHER DAY WITH ONCE DAILY WITH FOOD Active ibandronate (Boniva) 150 MG tablet Take 150 mg by mouth every 30 (thirty) days Take in morning with full glass of water on an empty stomach. No food, drink, meds, or lying down for 60 minutes after. Active potassium chloride ER (Micro-K) 10 MEQ ER capsule Take 10 mEq by mouth in the morning and 10 mEq before bedtime. Do not crush or chew. Active ketoconazole (NIZOral) 2 % cream Apply 3 application topically Daily Active metroNIDAZOLE (Metrocream) 0.75 % cream Apply 2 application topically in the morning and 2 application before bedtime. for 90 days, Notes to Pharmacist: Rosacea. Active omeprazole (PriLOSEC) [address] capsule Take 20 mg by mouth in the morning. Active nortriptyline (Pamelor) 10 MG capsule Take 10 mg by mouth 3 Active Active Problems Problem Noted Date Diagnosed Date Neuropathic pain 09/16/2023 Sjogren's syndrome 09/16/2023 Overview (09/16/2023): The patient does see rheumatology for unspecified Sjogren's disease (SICCA syndrome per some notes from PCP). PLAN: - Follow closely with rheumatology for management Lumbar radiculopathy 09/16/2023 Overview (09/16/2023): It is my impression that the patient has lumbar radiculopathy. BLE EMG on 02/16/22 revealed bilateral L5 radiculopathies. Lumbar MRI on 02/10/22 revealed multilevel spondylosis from L2-S1 including central canal narrowing and neuroforaminal narrowing. The patient has low back pain with radicular symptoms. Bilateral L4 epidural injections on 09/26/22 were beneficial (> 50% pain reduction), though effects were short-lived, so the patient was referred to pain management. Radiofrequency ablation in late 2022 was highly effective, and Tylenol is helpful. Pain management has reportedly recommended nortriptyline, but the patient believes symptoms are well controlled without nortriptyline at this time. Tizanidine was ineffective previously, and Gabapentin was not tolerated due to side effects. - PLAN: - I advised the patient to follow closely with pain management. We will defer current procedural pain management interventions to them at this time - We discussed potential referral to neurosurgery. The patient is not interested in neurosurgery evaluation at this time and has noticed symptom improvement with conservative measures thus far - The patient declines any medication adjustments today - I advised the patient to notify the office immediately or seek acute evaluation in the emergency department should she develop difficulty controlling her bowels/bladder, worsening lower extremity weakness, worsening sensory loss, or saddle-distribution anesthesia. She verbalizes understanding DDD (degenerative disc disease), lumbar 09/16/19 Overview (09/16/2023): The patient has degenerative disc disease of the lumbar spine as evidenced by previous MRI. PLAN: - See above Gait instability 09/16/2023 Overview (09/16/2023): The patient previously presented with left leg weakness which was felt to be related to lumbar radiculopathy and contributing to gait instability/falls. PT subjectively improved her strength and balance immensely. The patient denies any current weakness or balance difficulty. No focal weakness appreciated on exam. No falls since 2022. - PLAN: - Encouraged use of walker/cane for increased stability - Fall prevention discussed Encounters Date Type Department Care Team Description 07/31/2024 10:10 AM EDT Office Visit [facility] [address] [place] [address] Kamala Pierce MD History of parathyroid surgery (Primary Dx); H/O partial thyroidectomy ([facility]); Vitamin D deficiency 07/31/2024 Bamboo flowsheet [facility] [address] [place] [address] Kamala Pierce MD 06/30/2024 Abstract [facility] [address] [place] [address] Kamala Pierce MD from Last 3 Months Family History Medical History Relation Name Comments Cancer Father Stroke Maternal Grandfather Alcohol abuse Mother Coronary artery disease Mother Hyperlipidemia Mother Hypertension Mother Irritable bowel syndrome Mother Osteoporosis Mother Stroke Mother Stroke Mother's Sister Stroke Paternal Grandmother Allergies Sister Relation Name Status Comments Brother Alive Father Maternal Grandfather Mother Mother's Sister Paternal Grandmother Sister Alive x2 Social History Tobacco Use Types Packs/Day Years [...] Sign Reading Time Taken Comments Blood Pressure 138/88 06/30/2024 9:37 AM EDT Pulse 73 07/31/2024 9:51 AM EDT Temperature - - Respiratory Rate 16 07/31/2024 9:51 AM EDT Oxygen Saturation 94% 07/31/2024 9:51 AM EDT Inhaled Oxygen Concentration - - Weight 74.4 kg (164 lb) 07/31/2024 9:51 AM EDT Height 149.9 cm (4' 11 ) 07/31/2024 9:51 AM EDT Body Mass Index 33.12 07/31/2024 9:51 AM EDT Plan of Treatment Upcoming Encounters Date Type Department Care Team (Late st Contact Info) Description 02/05/2025 10:00 AM EST Office Visit [facility] [address] [place] [address] Kamala Pierce MD [address] [place] [address] Health Maintenance Due Date Last Done Comments CT Colonography 1950 Colonoscopy 1950 Colorectal Cancer Screening 1950 FIT-DNA 1950 FIT 1950 FOBT 1950 Sigmoidoscopy 1950 Mammogram 1991 Pneumococcal Vaccine: 65+ Years Completed , 11/21/2018 Influenza Vaccine Completed 12/14/2023, , 12/05/2021, Additional history exists Insurance MEDICARE [facility] Care Teams Precision Machinist Relationship Specialty Start Date End Date Miguel Allen MD [address] [place], [place] [id number] PCP - General Family Medicine 05/01/24 Felicia Bauer NP [address] [address] Nurse Practitioner Neurology 05/07/24 Adithya Thomas DO [address] [address] Referring Physician Neurology 05/07/24
--- OUTSIDE RECORDS SUMMARY | 2024-08-13 09:52 | XMS_ITS | Encounter Summary ---
Author Organization [facility] Address [address] [place] [address] Care Team Providers Care Sales Technician Home Theater Name Role Phone Miguel Allen MD Primary Care Provider [phone] Miguel Allen MD Primary Care Provider [phone] Felicia Bauer SALES REPRESENTATIVE [employer] Unavailable [phone] Adithya Thomas DO Unavailable [phone] Encounter Details Date Type Department Care Team (Late st Contact Info) Description 08/08/2023 External Result Encounter [facility] External Department Unsolicited Tatiana Douglas MD [address] [place] [address] Social History Tobacco Use Types Packs/Day Years [...] 10:00 AM EST Office Visit [facility] [address] [place] [address] Kamala Pierce MD [address] [place] [address] documented as of this encounter Procedures Procedure Name Priority Date/Time Associated Diagnosis Comments BIOPSY BONE MARROW 08/08/2023 3: 01 PM EDT documented in this encounter Results * Biopsy bone marrow (08/08/2023 3:01 PM EDT) 08/08/2023 3:01 PM EDT Impressions [facility] 08/08/2023 3:[address] guided bone marrow aspiration and biopsy of the left posterior iliac spine. Impression dictated by: Tommy Mathur M.D.08/08/2023 3:03 PM Dictation Location: [place] [address] Transcribed By: [facility] 08/08/23 1503 Dictated By: Tommy Mathur II, MD 08/08/23 1501 Signed By: <Electronically signed by Tommy Mathur II, MD in OV> 08/08/23 1503 Narrative [facility] - 08/08/2023 3:05 PM EDT [facility] [place] [address] CT Scan Report Signed Patient: Misty Perez MR#: [id number] 43 : 1950 Acct:[id number] Age/Sex: 73 / F ADM Date: 08/08/23 Loc: CT Room: Type: [facility] Attending Dr: Tatiana Douglas [...] were detected. CT/CT guided bone marrow bx/aspir Procedure Note Radiology, RadiologistMD - 08/08/2023 [facility] Main [place] [address] [place] [address] CT Scan Report Signed Patient: Misty Perez [facility]#: [id number] 43 : 2Acct:[id number] Age/Sex: 73 / FADM Date: 08/08/23 Loc: CT Room:Type: [facility] Attending Dr: Tatiana Douglas MD Copies to: Tatiana Douglas MD Ordering Provider: Tatiana Douglas MD Date of Service: 08/08/23 CT/CT guided bone marrow bx/aspir: D47.2 -Monoclonal gammopathy CT guided bone marrow bx/aspir 08/08/2023 8:50 AM SIGNS AND SYMPTOMS: D47.2 - Monoclonal gammopathy INFORMED CONSENT: Reason for procedure was discussed with the patient. The procedureexpectations risks benefits options and alternatives were discussed. All the questions were answered.The patient understood the results cannot be guaranteed. The procedure is indicated and risks wereacceptable. Consent was obtained. PROCEDURE: CT imaging was used to visualize the left posterior iliac spine. The skinwas marked over this location. The skin was prepped and draped in a sterile manner. 8 mL oflidocaine 2% without epinephrine were used for local anesthesia. The bone marrow space of theleft posterior iliac spine was accessed using a 9 gauge arrow on control drill assisted biopsysystem. 11 mL of bone marrow aspirate was obtained. A 2.5 cm 9 gauge core biopsy specimen was obtained.The needle was removed and hemostasis was gained using manual pressure. A bandage was placed atthe puncture site. The patient tolerated the procedure well. No immediate complications weredetected. CT/CT guided bone marrow bx/aspir IMPRESSION: Successful CT guided bone marrow aspiration and biopsy of the leftposterior iliac spine. Impression dictated by: Tommy Mathur M.D.08/08/2023 3:03 PM Dictation Location: [place] [address] Transcribed By: [facility] 08/08/23 1503 Dictated By: Tommy Mathur II, MD 08/08/23 1501 Signed By: <Electronically signed by Tommy Mathur II, MD inOV> 08/08/23 1503 us Tataina Douglas MD IN CLINIC/BEDSIDE ORDERABLES Fin al Result Performing Organization Address City/State/[facility] Co de Phone Number [place] [address] [place] [address], documented in this encounter Visit Diagnoses Not on filedocumented in this encounter Care Teams Sales Technician Home Theater Relationship Specialty Start Date End Date Miguel Allen MD PCP - General Family Medicine 09/19/23 04/30/24 Miguel Allen MD [facility] [place] [address] PCP - General Family Medicine 05/01/24 Felicia Bauer NP [address] [address] Nurse Practitioner Neurology 05/07/24 Adithya Thomas DO [address] [address] Referring Physician Neurology 05/07/24 documented as of this encounter
--- OUTSIDE RECORDS SUMMARY | 2024-08-13 09:52 | XMS_ITS | Encounter Summary ---
Author Organization [facility] Address [address] [place] [address] Care Team Providers Care Asp Web Developer Name Role Phone Miguel Allen MD Primary Care Provider [phone] Miguel Allen MD Primary Care Provider [phone] Felicia Bauer CNC MACHINIST 2ND SHIFT Unavailable [phone] Adithya Thomas DO Unavailable [phone] Encounter Details Date Type Department Care Team (Late st Contact Info) Description 08/22/2023 External Result Encounter [facility] External Department Unsolicited Tatiana Douglas MD [address] [place] [address] Social History Tobacco Use Types Packs/Day Years [...] AM EST Office Visit [facility] [address] [place] [address] Kamala Pierce MD [address] [place] [address] documented as of this encounter Procedures Procedure Name Priority Date/Time Associated Diagnosis Comments XR BONE SURVEY COMPLETE 08/22/2023 11:50 AM EDT documented in this encounter Results * XR bone survey complete (08/22/2023 11:50 AM EDT) Anatomical Region Laterality Modality Body, Upper Extremities, Low er Extremities, Spine, Head, Neck Radiographic Imaging 08/22/2023 11:5 0 AM EDT Impressions 08/22/2023 11:56 AM EDT Degenerative change. There are no lytic lesions. Impression dictated by: Ramu Rivera M.D.08/22/2023 11:53 AM Dictation Location: [facility]--12 Transcribed By: [facility] 08/22/23 1153 Dictated By: Ramu Rivera DO 08/22/23 1150 Signed By: <Electronically signed by Ramu Rivera DO in OV> 08/22/23 1153 Narrative 08/22/2023 11:56 AM EDT [facility] Main [place] [id number] XRay Report Signed Patient: Misty Perez MR#: [id number] 43 : 1950 Acct:[id number] Age/Sex: 73 / F ADM Date: 08/22/23 Loc: Room: Type: [facility] Attending Dr: Tatiana Douglas MD Copies to: Tatiana Douglsa MD Ordering Provider: Tatiana Douglas MD Date [...] right first carpometacarpal degeneration. XR/XR bone survey Procedure Note Radiology, Radiologist, - 08/22/2023 [facility] Main [place] [address] [place] [address] XRay Report Signed Patient: Misty Perez MMR#: [id number] 44 : 1950cct:[id number] Age/Sex: 73 / FADM Date: 08/22/23 Loc: XT Room:Type: [facility] Attending Dr: Tatiana Douglas MD Copies to: Tatiana Douglas MD Ordering Provider: Tatiana Douglas MD Date of Service: 08/22/23 XR/XR bone survey: D47.2 - Monoclonalgammopathy Plain film bone survey HISTORY: MGUS. COMPARISON: 12/15/2016 No lytic lesions. Multilevel cervical spine degenerative change. Thoracichyperostosis and spondylosis. Mild lateral curvature. Sensitive lumbar degenerative change.Intact skull. No acute chest findings. Moderate constipation extensive left first carpometacarpaldegeneration. Chronic changes of the distal right radius. Extensive right first carpometacarpaldegeneration. XR/XR bone survey IMPRESSION: Degenerative change. There are no lytic lesions. Impression dictated by: Ramu Rivera M.D.08/22/2023 11:53 AM Dictation Location: [place] [address] Transcribed By: [facility] 08/22/23 1153 Dictated By: Ramu Rivera DO 08/22/23 1150 Signed By: <Electronically signed by Ramu Rivera DO in OV> 08/22/23 1153 us Tatiana Douglas MD IMG XR PROCEDURES Final Result documented in this encounter Visit Diagnoses Not on filedocumented in this encounter Care Teams Asp Web Developer Relationship Specialty Start Date End Date Miguel Allen MD PCP - General Family Medicine 09/19/23 04/30/24 Miguel Allen MD [address] [place] [address] PCP - General Family Medicine 05/01/24 Felicia Bauer NP [address] [address] Nurse Practitioner Neurology 05/07/24 Adithya Thomas DO [address] [address] Referring Physician Neurology 05/07/24 documented as of this encounter
--- OUTSIDE RECORDS SUMMARY | 2024-08-13 10:11 | XMS_ITS | CCD ---
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 Name Role Phone KENNEDY ., DR GER Vyas Primary Care Unavailable KELLY, LEIGH Admitting Unavailable KELLY, LEIGH Attending Unavailable MISAEL, DR TATIANA Tracy Admitting Unavailable KENNEDY ., DR GER Vyas Primary Care Unavailable MISAEL, DR TATIANA Tracy Attending Unavailable MISAEL, DR TATIANA Tracy Consulting Unavailable KENNEDY ., DR GER Vyas Primary Care Unavailable HALADANasreen, DR SINGH Consulting Unavailable ANDREWADANasreen, DR SINGH Admitting Unavailable HALADANasreen, DR SINGH [...] Care Unavailable MARIANNE, DR SINGH Admitting Unavailable HALADANasreen, DR SINGH Attending Unavailable KENNEDY ., DR GER Vyas Admitting Unavailable KENNEDY ., DR GER Vyas Attending Unavailable KENNEDY ., DR GER Vyas Consulting Unavailable KENNEDY ., DR GER Vyas Primary Care Unavailable DR NOEMI ACOSTA Consulting Unavailable Connor BRADFORD, Alice Miranda Attending Unavailable Connor BRADFORD, Alice Miradna Attending Unavailable Connor BRADFORD, Alice Miranda Attending Unavailable Connor BRADFORD, Alice Miranda Attending Unavailable MD Tatiana Douglas Attending Provider [phone] MD Jean Hair Primary Care Provider MD Jean Hair Primary Care Provider [phone] MD Tatiana Douglas Attending Provider Jean Hair Primary Care Physician Jean Hair Attending Unavailable Jean Hair Admitting Unavailable Jean Hair MD Primary Care Provider [phone] Jean Hair Primary Care Unavailable Tatiana Douglas Attending Unavailable Tatiana Douglas Admitting Unavailable Tatiana Douglas Attending Unavailable Tatiana Douglas Admitting Unavailable Jean Hair Primary Care Unavailable Jean Hair MD Primary Care Provider [phone] Felicia Salazar NP Unavailable MD Jean Hair Attending Unavailable MD Jean Hair. Attending Unavailable MD Jean Hair Attending Unavailable MD Jean Hair Admitting Unavailable MD Jean Hair Attending Unavailable MD Jean Hair Attending Unavailable MD Jean Hair Attending Unavailable Adithya Thomas DO Unavailable [phone] FELICIA SALAZAR Attending Unavailable KAMALA GOLD Attending Unavailable JEAN HAIR Referring Unavailable FELICIA SALAZAR Attending Unavailable Jean Hair Admitting Unavailable Jean Hair Attending Unavailable Jean Hair Attending Unavailable Jean Hair Attending Unavailable Allergies Allergy Classification Reported Allergen(s) Allergy Type Date of Onset Reaction(s) Facility Anti-Epileptic Agents (1 source) gabapentin Drug Allergy 08-08-19 24 Insomnia [facility] Dihydrofolate Reductase Inhibitors (antibiotic) (1 source) Trimethoprim Drug Allergy 08-08-19 24 [facility] Latex (1 source) Latex Substance Allergy 08-08-19 24 blisters at site of contact [facility] Opioid Agonists (3 sources) Meperidine Drug Allergy 08-08-19 24 Nausea [facility] Sulfonamides (antibiotic) (1 source) Sulfamethoxazole Drug Allergy 08-08-19 24 [facility] (4 sources) gabapentin Drug Allergy 07-15-19 22 Insomnia [facility] (1 source) Sulfamethoxazole / Trimethoprim Drug Allergy [facility] (1 source) Sulfonamides (Antibiotic) Drug allergy (disorder) 08-21-19 15 [facility] (14 sources) Latex; Translations: [latex] Allergy to substance 09-02-19 15 Unknown [facility] (15 sources) Meperidine; Translations: [Meperidine] Drug Allergy 07-15-19 Nausea (finding), GI intolerance [facility] (17 sources) Morphine; Translations: [Morphine] Drug Allergy 07-15-19 Nausea (finding), Nausea Only [facility] (14 sources) oxyCODONE; Translations: [oxycodone] Drug Allergy 07-15-19 GI intolerance [facility] (4 sources) Sulfamethoxazole; Translations: [sulfamethoxazole] Drug Allergy 07-15-19 [facility] (14 sources) Trimethoprim; Translations: [trimethoprim] Drug Allergy 07-15-19 [facility] (3 sources) Acetaminophen / oxyCODONE; Translations: [acetaminophen-oxyc odone] Drug Allergy Nausea (finding) [facility] (13 sources) gabapentin; Translations: [gabapentin] Drug Allergy 09-16-19 Unknown (qualifier value) [facility] (3 sources) Sulfonamides (Antibiotic); Translations: [sulfa drugs] Drug allergy Unknown (qualifier value) [facility] (10 sources) Meperidine Drug Allergy 09-19-19 Nausea Only [facility] (10 sources) Sulfamethoxazole / Trimethoprim Drug Allergy 09-16-19 [facility] (10 sources) Sulfonamides (Antibiotic) Propensity to adverse reactions 09-16-19 [facility] (1 source) gabapentin Drug Allergy 02-21-20 [facility]ository (2 sources) Meperidine; Translations: [Demerol] Drug Allergy [facility] Repository Medications Current Medications Medication Drug Class(es) Dates Sig (Normalized) Sig (Original) Acetaminophen (11 sources) Start: 12-25-2022 acetaminophen 650 mg, PRN [...] split. Active atorvastatin 10 mg oral tablet (19 sources) HMG-CoA Reductase Inhibitor Start: 11-12-2023 take 1 tablet by mouth once daily atorvastatin 10 mg Tab 10 mg = 1 tab(s), Oral, Daily, # 90 tab(s), Refills(s) 4, Pharmacy: [facility] 1155, 146, cm, 08/09/23 10:30:00 EDT, [...] Status: Ordered cholecalciferol 0.05 mg oral capsule (17 sources) Vitamin D Start: 07-25-2023 take 50 [...] 2023 12:00am furosemide 20 mg oral tablet (15 sources) Loop Diuretic Start: 06-22-2017 take 1 tablet by mouth once daily furosemide 20 mg Tab See Instructions, TAKE ONE TABLET BY MOUTH DAILY, # 90 EA, Refills(s) 4, Pharmacy: [facility] 1155, 146, cm, 08/09/23 10:30:00 EDT, Height/Length Dosing, 70.6, kg, 08/09/23 10:30:00 EDT, Weight Dosing Start Date: 11/12/23 Status: Ordered hydroxychloroquine sulfate 200 mg oral tablet (15 sources) Antimalarial, Antirheumatic Agent Start: 12-19-2016 take 1 tablet by mouth twice daily, then take 1 tablet by mouth once daily hydroxychloroquine 200 mg Tab See Instructions, 200mg orally twice a day alternating with 200mg once a day, Refills(s) 0 Start Date: 07/24/22 Status: Ordered ketoconazole 20 mg/ml medicated shampoo (15 sources) Azole Antifungal Start: 08-09-2023 ketoconazole Top 2% Shampoo 1 torrie, Topical, Every other day, Refill(s) 0 Start Date: 08/09/23 Status: Ordered Start: 07-25-2023 Ketoconazole A ctive 1 APPLIC TOPICAL Daily July 25, 2023 12:00am Start: 12-25-2022 ketoconazole = 2 %, Topical, Daily, PRN Rash, Refills(s) 0 Start Date: 12/25/22 Status: Ordered levothyroxine sodium 0.05 mg oral tablet (15 sources) l-Thyroxine Start: 08-09-2023 take 1 tablet by mouth once daily levothyroxine 50 mcg (0.05 mg) Tab 50 mcg = 1 tab(s), Oral, Daily, # 90 tab(s), Refills(s) 1, Pharmacy: [facility] 1155, 146, cm, 08/09/23 10:30:00 EDT, Height/Length Dosing, 70.6, kg, 08/09/23 10:30:00 EDT, Weight Dosing Start Date: 08/09/23 Status: Ordered Start: 12-19-2016 take 50 ug by mouth once daily Levothyroxine Active 50 MCG PO Daily December 19, 2016 12:00am lisinopril 10 mg oral tablet (15 sources) Angiotensin Converting Enzyme Inhibitor Start: 12-19-2016 take 1 tablet by mouth once daily lisinopril 10 mg Tab 10 mg = 1 tab(s), Oral, Daily, # 90 tab(s), Refills(s) 1, Pharmacy: [facility], 146, cm, 08/09/23 10:30:00 EDT, Height/Length Dosing, 70.6, kg, 08/09/23 10:30:00 EDT, Weight Dosing Start Date: 08/09/23 Status: Ordered metroNIDAZOLE 7.5 mg/ml topical cream (14 sources) Nitroimidazole Antimicrobial Start: 07-25-2023 Metronidazole Active [...] Active naproxen sodium 220 mg oral tablet (14 sources) Nonsteroidal Anti-inflammatory Drug Start: 07-25-2023 take 220 mg by mouth twice daily Naproxen Sodium Active 220 MG PO Twice daily July 25, 2023 12:00am Start: 12-25-2022 naproxen 500 m g, Oral, PRN as needed for pain, Refills(s) 0 Start Date: 12/25/22 Status: Ordered take 1 tablet by maren th every twelve hours naproxen sodium (Aleve) 220 MG tablet Take 220 mg by mouth every 12 (twelve) hours Active nortriptyline 10 mg oral capsule (10 sources) Tricyclic Antidepressant Start: 02-28-2023 nortriptyline (Pamelor) 10 MG capsule Take 10 mg by mouth 02/28/2023 Active triamcinolone acetonide 1 mg/ml topical cream (10 sources) Corticosteroid triamcinolone (Kenalog) 0.1 % cream Apply 1 application topically 2 (two) times a week Active Vitamin D3 2000 intl units oral Tab (1 source) Start: 07-24-2022 take 1 tablet by mouth once daily Vitamin D3 2000 intl units oral Tab 50 mcg, Oral, Daily, # 100 cap(s), Refills(s) 0, Pharmacy: [facility], 149.9, cm, 07/24/22 13:31:00 EDT, Height/Length [...] 10:11am ibandronic acid 150 mg oral tablet (14 sources) Bisphosphonate Start: 12-19-2016 End: 08-29-2023 take [...] omeprazole 20 mg delayed release oral capsule (14 sources) Proton Pump Inhibitor Start: 12-19-2016 End: 10-29-2017 take 20 mg by mouth once daily Omeprazole Discontinued 20 MG PO Daily December 19, 2016 12:00am October 29, 2017 9:35am Potassium Chloride (15 sources) Start: 08-09-2023 take 1 tablet by mouth once daily Potassium Chloride (Lux-Fsuz-Xiy 10) 10 mEq oral tablet, extended release [...] Problem Classification Problem Date Documented Date Episodic/Chronic Complications of surgical procedures or medical care (2 sources) History of subtotal thyroidectomy; Translations: [Postprocedural hypothyroidism] 07-31-2024 Chronic Deficiency and other anemia (1 source) Anemia [...] uncertain significance] Onset: 2 Chronic Nutritional deficiencies (4 sources) Vitamin D deficiency, unspecified; Translations: [Vitamin [...] Onset: 3 Episodic Other nervous system disorders (2 sources) [...] Spondylosis; intervertebral disc disorders; other back problems (12 sources) Degeneration of lumbar intervertebral disc; Translations: [DDD (degenerative disc disease), lumbar] Onset: 4 09-16-2023 Chronic Systemic lupus erythematosus and connective tissue disorders [...] te Episodic/Chronic Other aftercare (1 source) 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 (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 therapy; Translations: [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] Onset: 12-25-2021 Episodic Other connective tissue disease (10 sources) Neuropathic pain; Translations: [Neuralgia and neuritis, unspecified] Onset: 09-16-2023 09-16-2023 Episodic Other nervous system disorders (12 sources) Abnormal gait; Translations: [Unsteadiness on feet] Onset: 09-16-2023 09-16-2023 Episodic Other non-traumatic joint [...] MALIG NEOPLASM DIGESTIV ORGN] Onset: 08-23-2021 Episodic Spondylosis; intervertebral disc disorders; other back problems (20 sources) Radiculopathy, lumbosacral region; Translations: [Intervertebral disc disorders with radiculopathy, lumbar region] Onset: 02-10-2022 Episodic Unclassified (1 source) Patient encounter status 12-27-2023 Results Test Name Value Interpretation Reference Range [facility] 08-08-[address] [place] [address] Case Information Case Priority: None Programs: -- Referral Source: Prosthetic Technician Referral Reason: Disease management Case Type: Chronic Care Management Risk Score: -- Case Status: Active (July 30, 2024) Date Assigned: July 01, 2024 Assigned By: Abiodun Hodges Date Enrolled: July 30, 2024 Assigned Primary Personnel: Abiodun Hodges Assigned Secondary Personnel: -- Case Physician: Jean Hair MD Ongoing Anemia BMI 32.0-32.9,adult BMI 33.0-33.9,adult Fibromyalgia Hyperlipidemia Hypertension Hypoparathyroidism MGUS (monoclonal gammopathy of unknown significance) Nonsmoker Obesity (BMI 30-39.9) Osteoarthritis of knee Osteoporosis Peripheral neuropathy Sjogren's syndrome SK (seborrheic keratosis) Vitamin D deficiency Historical Breast cancer screening Hypothyroidism Procedure/Surgical History Bone marrow biopsy (08/13/2023), Ablation, Biopsy of breast, Biopsy of thyroid, Bone graft, Bone marrow biopsy, Cancer of skin, Cataract, Colonoscopy, Internal fixation of fracture, Mohs surgery, Parathyroidectomy, Repair of tendon, BREANNA BSO - Total abdominal hysterectomy and bilateral salpingo-oophorectomy. Home Medications acetaminophen, 650 mg, PRN Aleve, 220 mg, Oral, q8hr, PRN atorvastatin 10 mg Tab, 10 mg= 1 tab(s), Oral, Daily, 4 refills fluocinonide Top 0.05% Crm 15 gram, See Instructions furosemide 20 mg Tab, See Instructions, 4 refills hydroxychloroquine 200 mg Tab, See Instructions ketoconazole Top 2% Shampoo, 1 torrie, Topical, Every other day ketoconazole topical, See Instructions levothyroxine 50 mcg (0.05 mg) Tab, 50 mcg= 1 tab(s), Oral, Daily, 1 refills lisinopril 10 mg Tab, 10 mg= 1 tab(s), Oral, Daily, 1 refills metronidazole topical 1% cream, 1 torrie, Topical, BID Potassium Chloride (Zge-Arnz-Iak 10) 10 mEq oral tablet, extended release, 10 mEq= 1 tab(s), Oral, Daily, 1 refills Systane, See Instructions Tums, 500 mg, Chewed, QID, PRN Vitamin D3 2000 intl units oral Tab, 50 mcg, Oral, Daily Allergies Demerol (Nausea) Neurontin (Unknown) Percocet (Nausea) morphine (Nausea) sulfa drugs (Unknown) Social History Alcohol - No Risk, 12/27/2023 Never., 12/27/2023 Substance Abuse - No Risk, 12/27/2023 Never., 12/27/2023 Tobacco - No Risk, 12/27/2023 Never (less than 100 in lifetime) Tobacco Use:. Never Smokeless Tobacco Use:. Household tobacco concerns: No. Yes, 07/21/2024 Family History Stroke: Mother, Aunt, Grandparent and Grandparent. Screenings and Assessments 07/22/24 14:16:00 Result Name Value Comment CCM Program Enrollment Verbally agreed to receive [facility] services CCM Written Consent Written consent in progress CCM Verbal Consent By Self 07/22/24 13:00:00 Result Name Value Comment CM Preferred Spoken Language [place] CM Preferred Written Language [place] Preferred Communication Mode Verbal Ability to Read/Write Able to read, Able to write Learning Style Pref Patient Demonstration, Video/Educational TV Learning Style Pref Parent/Guardian Demonstration Barriers to Learning Vision impairment Cognitive Deficit No Response to Current Year Correct Response to Current Month Correct Response to Current Time Correct Count Backward 20 to 1 Correct State Months in Reverse Order Correct Repeat Memory Phrase Correct [facility] Test Score Indication None or no significant cognitive impairment Lives In Multilevel home Number in Household 2 Sleeping Arrangement Own bed, in room alone Support System Spouse/Significant other, Family member(s), Cultural/Spiritual community Primary 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 Medication Self Home Medication Behavior Problems Forget to take takes Atorvastatin at supper to help remeber, but sometimes forgets to take Medication Adherence Method Does not use any method Current DME at Home Yes Uses cane and walker as needed Currently Receiving Skilled Services No Skilled Service Needs Anticipated No Employment Status Retired Financial Issues None Sources of Income Pension, Savings, Social Security Pt/CG Understand Health Plan Benefits Yes Benefits Adequate for the Members Needs Yes Rate Your Physical Health Good CM Hearing Evaluation No hearing impairment CM Vision Evaluation Vision impairment, but managed through assistive devices CM Speech Communication No communication impairment CM Sensory Perception No sensory perception impairment CM Fine, Gross Motor Skills No impairment musculoskeletal, fine, gross motor development General Sympto (more content not included)... Normal [facility] ED [facility] Myofascial Pain Syndrome and Fibromyalgia Myofascial pain syndrome and fibromyalgia are both pain disorders. You may feel this pain mainly in your muscles. ??? Myofascial pain syndrome: ? Always has tender points in the muscles that will cause pain when pressed (trigger points). The pain may come and go. ? Usually affects your neck, upper back, and shoulder areas. The pain often moves into your arms and hands. ??? Fibromyalgia: ? Has muscle pains and tenderness that come and go. ? Is often associated with tiredness (fatigue) and sleep problems. ? Has trigger points. ? Tends to be long-lasting (chronic), but is not life-threatening. Fibromyalgia and myofascial pain syndrome are not the same. However, they often occur together. If you have both conditions, each can make the other worse. Both are common and can cause enough pain and fatigue to make day-to-day activities difficult. Both can be hard to diagnose because their symptoms are common in many other conditions. What are the causes? The exact causes of these conditions are not known. What increases the risk? You are more likely to develop either of these conditions if: ??? You have a family history of the condition. ??? You are female. ??? You have certain triggers, such as: ? Spine disorders. ? An injury (trauma) or other physical stressors. ? Being under a lot of stress. ? Medical conditions such as osteoarthritis, rheumatoid arthritis, or lupus. What are the signs or symptoms? Fibromyalgia The main symptom of fibromyalgia is widespread pain and tenderness in your muscles. Pain is sometimes described as stabbing, shooting, or burning. You may also have: ??? Tingling or numbness. ??? Sleep problems and fatigue. ??? Problems with attention and concentration (fibro fog). Other symptoms may include: ??? Bowel and bladder problems. ??? Headaches. ??? Vision problems. ??? Sensitivity to odors and noises. ??? Depression or mood changes. ??? Painful menstrual periods (dysmenorrhea). ??? Dry skin or eyes. These symptoms can vary over time. Myofascial pain syndrome Symptoms of myofascial pain syndrome include: ??? Tight, ropy bands of muscle. ??? Uncomfortable sensations in muscle areas. These may include aching, cramping, burning, numbness, tingling, and weakness. ??? Difficulty moving certain parts of the body freely (poor range of motion). How is this diagnosed? This condition may be diagnosed by your symptoms and medical history. You will also have a physical exam. In general: ??? Fibromyalgia is diagnosed if you have pain, fatigue, and other symptoms for more than 3 months, and symptoms cannot be explained by another condition. ??? Myofascial pain syndrome is diagnosed if you have trigger points in your muscles, and those trigger points are tender and cause pain elsewhere in your body (referred pain). How is this treated? Treatment for these conditions depends on the type that you have. ??? For fibromyalgia, a healthy lifestyle is the most important treatment including aerobic and strength exercises. Different types of medicines are used to help treat pain and include: ? NSAIDs. ? Medicines for treating depression. ? Medicines that help control seizures. ? Medicines that relax the muscles. ??? Treatment for myofascial pain syndrome includes: ? Pain medicines, such as NSAIDs. ? Cooling and stretching of muscles. ? Massage therapy with myofascial release technique. ? Trigger point injections. Treating these conditions often requires a team of health care providers. These may include: ??? Your primary care provider. ??? A physical therapist. ??? Complementary health care providers, such as massage therapists or acupuncturists. ??? A psychiatrist for cognitive behavioral therapy. Follow these instructions at home: Medicines ??? Take hodi-mrz-pfunkyr and prescription medicines only as told by your health care provider. ??? Ask your health care provider if the medicine prescribed to you: ? Requires you to avoid driving or using machinery. ? Can cause constipation. You may need to take these actions to prevent or treat constipation: ? Drink enough fluid to keep your urine pale yellow. ? Take [id number] or prescription medicines. ? Eat foods that are high in fiber, such as beans, whole grains, and fresh fruits and vegetables. ? Limit foods that are high in fat and processed sugars, such as fried or sweet foods. Lifestyle ??? Do exercises as told by your health care provider or physical therapist. ??? Practice relaxation techniques to control your stress. You may want to try: ? Biofeedback. ? Visual imagery. ? Hypnosis. ? Muscle relaxation. ? Yoga. ? Meditation. ??? Maintain a healthy lifestyle. This includes eating a healthy diet and getting enough sleep. ??? Do not use any pr (more content not included)... Normal [facility] 07-24-19 Population [facility] Population Health Case Information Case Priority: None Programs: -- Referral Source: Prosthetic Technician Referral Reason: Disease management Case Type: Chronic Care Management Risk Score: -- Case Status: New (July 01, 2024) Date Assigned: July 01, 2024 Assigned By: Abiodun Hodges Date Enrolled: -- Assigned Primary Personnel: Abiodun Hodges Assigned Secondary Personnel: -- Case Physician: Jean Hair MD Problems Ongoing Anemia BMI 32.0-32.9,adult BMI 33.0-33.9,adult Fibromyalgia Hyperlipidemia Hypertension Hypoparathyroidism MGUS (monoclonal gammopathy of unknown significance) Nonsmoker Obesity (BMI 30-39.9) Osteoarthritis of knee Osteoporosis Peripheral neuropathy Sjogren's syndrome SK (seborrheic keratosis) Vitamin D deficiency Historical Breast cancer screening Hypothyroidism Procedure/Surgical History Bone marrow biopsy (08/13/2023), Ablation, Biopsy of breast, Biopsy of thyroid, Bone graft, Bone marrow biopsy, Cancer of skin, Cataract, Colonoscopy, Internal fixation of fracture, Mohs surgery, Parathyroidectomy, Repair of tendon, BREANNA BSO - Total abdominal hysterectomy and bilateral salpingo-oophorectomy. Home Medications acetaminophen, 650 mg, PRN Aleve, 220 mg, Oral, q8hr, PRN atorvastatin 10 mg Tab, 10 mg= 1 tab(s), Oral, Daily, 4 refills fluocinonide Top 0.05% Crm 15 gram, See Instructions furosemide 20 mg Tab, See Instructions, 4 refills hydroxychloroquine 200 mg Tab, See Instructions ketoconazole Top 2% Shampoo, 1 torrie, Topical, Every other day ketoconazole topical, See Instructions levothyroxine 50 mcg (0.05 mg) Tab, 50 mcg= 1 tab(s), Oral, Daily, 1 refills lisinopril 10 mg Tab, 10 mg= 1 tab(s), Oral, Daily, 1 refills metronidazole topical 1% cream, 1 torrie, Topical, BID Potassium Chloride (Rtv-Sohz-Xcv 10) 10 mEq oral tablet, extended release, 10 mEq= 1 tab(s), Oral, Daily, 1 refills Systane, See Instructions Tums, 500 mg, Chewed, QID, PRN Vitamin D3 2000 intl units oral Tab, 50 mcg, Oral, Daily Allergies Demerol (Nausea) Neurontin (Unknown) Percocet (Nausea) morphine (Nausea) sulfa drugs (Unknown) Social History Alcohol - No Risk, 12/27/2023 Never., 12/27/2023 Substance Abuse - No Risk, 12/27/2023 Never., 12/27/2023 Tobacco - No Risk, 12/27/2023 Never (less than 100 in lifetime) Tobacco Use:. Never Smokeless Tobacco Use:. Household tobacco concerns: No. Yes, 07/21/2024 Family History Stroke: Mother, Aunt, Grandparent and Grandparent. Screenings and Assessments 07/22/24 14:16:00 Result Name Value Comment CCM Program Enrollment Verbally agreed to receive CCM services CCM Written Consent Written consent in progress CCM Verbal Consent By Self 07/22/24 13:00:00 Result Name Value Comment CM Preferred Spoken Language [place] CM Preferred Written Language [place] Preferred Communication Mode Verbal Ability to Read/Write Able to read, Able to write Learning Style Pref Patient Demonstration, Video/Educational TV Learning Style Pref Parent/Guardian Demonstration Barriers to Learning Vision impairment Cognitive Deficit No Response to Current Year Correct Response to Current Month Correct Response to Current Time Correct Count Backward 20 to 1 Correct State Months in Reverse Order Correct Repeat Memory Phrase Correct [facility] Test Score Indication None or no significant cognitive impairment Lives In Multilevel home Number in Household 2 Sleeping Arrangement Own bed, in room alone Support System Spouse/Significant other, Family member(s), Cultural/Spiritual community Primary 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 Medication Self Home Medication Behavior Problems Forget to take takes Atorvastatin at supper to help remeber, but sometimes forgets to take Medication Adherence Method Does not use any method Current DME at Home Yes Uses cane and walker as needed Currently Receiving Skilled Services No Skilled Service Needs Anticipated No Employment Status Retired Financial Issues None Sources of Income Pension, Savings, Social Security Pt/CG Understand Health Plan Benefits Yes Benefits Adequate for the Members Needs Yes Rate Your Physical Health Good CM Hearing Evaluation No hearing impairment CM Vision Evaluation Vision impairment, but managed through assistive devices CM Speech Communication No communication impairment CM Sensory Perception No sensory perception impairment CM Fine, Gross Motor Skills No impairment musculoskeletal, fine, gross motor development General Symptoms None (more content not included)... Normal [facility] Population Health Population Health Case Information Case Priority: None Programs: -- Referral Source: Prosthetic Technician Referral Reason: Disease management Case Type: Chronic Care Management Risk Score: -- Case Status: New (July 01, 2024) Date Assigned: July 01, 2024 Assigned By: Abiodun Hodges Date Enrolled: -- Assigned Primary Personnel: Abiodun Hodges Assigned Secondary Personnel: -- Case Physician: Jean Hair MD Problems Ongoing Anemia BMI 32.0-32.9,adult BMI 33.0-33.9,adult Fibromyalgia Hyperlipidemia Hypertension Hypoparathyroidism MGUS (monoclonal gammopathy of unknown significance) Nonsmoker Obesity (BMI 30-39.9) Osteoarthritis of knee Osteoporosis Peripheral neuropathy Sjogren's syndrome SK (seborrheic keratosis) Vitamin D deficiency Historical Breast cancer screening Hypothyroidism Procedure/Surgical History Bone marrow biopsy (08/13/2023), Ablation, Biopsy of breast, Biopsy of thyroid, Bone graft, Bone marrow biopsy, Cancer of skin, Cataract, Colonoscopy, Internal fixation of fracture, Mohs surgery, Parathyroidectomy, Repair of tendon, BREANNA BSO - Total abdominal hysterectomy and bilateral salpingo-oophorectomy. Home Medications acetaminophen, 650 mg, PRN Aleve, 220 mg, Oral, q8hr, PRN atorvastatin 10 mg Tab, 10 mg= 1 tab(s), Oral, Daily, 4 refills fluocinonide Top 0.05% Crm 15 gram, See Instructions furosemide 20 mg Tab, See Instructions, 4 refills hydroxychloroquine 200 mg Tab, See Instructions ketoconazole Top 2% Shampoo, 1 torrie, Topical, Every other day ketoconazole topical, See Instructions levothyroxine 50 mcg (0.05 mg) Tab, 50 mcg= 1 tab(s), Oral, Daily, 1 refills lisinopril 10 mg Tab, 10 mg= 1 tab(s), Oral, Daily, 1 refills metronidazole topical 1% cream, 1 torrie, Topical, BID Potassium Chloride (Wky-Qtnt-Rir 10) 10 mEq oral tablet, extended release, 10 mEq= 1 tab(s), Oral, Daily, 1 refills Systane, See Instructions Tums, 500 mg, Chewed, QID, PRN Vitamin D3 2000 intl units oral Tab, 50 mcg, Oral, Daily Allergies Demerol (Nausea) Neurontin (Unknown) Percocet (Nausea) morphine (Nausea) sulfa drugs (Unknown) Social History Alcohol - No Risk, 12/27/2023 Never., 12/27/2023 Substance Abuse - No Risk, 12/27/2023 Never., 12/27/2023 Tobacco - No Risk, 12/27/2023 Never (less than 100 in lifetime) Tobacco Use:. Never Smokeless Tobacco Use:. Household tobacco concerns: No. Yes, 07/21/2024 Family History Stroke: Mother, Aunt, Grandparent and Grandparent. Screenings and Assessments 07/22/24 14:16:00 Result Name Value Comment CCM Program Enrollment Verbally agreed to receive CCM services CCM Written Consent Written consent in progress CCM Verbal Consent By Self 07/22/24 13:00:00 Result Name Value Comment CM Preferred Spoken Language Par[place]ayan CM Preferred Written Language [place] Preferred Communication Mode Verbal Ability to Read/Write Able to read, Able to write Learning Style Pref Patient Demonstration, Video/Educational TV Learning Style Pref Parent/Guardian Demonstration Barriers to Learning Vision impairment Cognitive Deficit No Response to Current Year Correct Response to Current Month Correct Response to Current Time Correct Count Backward 20 to 1 Correct State Months in Reverse Order Correct Repeat Memory Phrase Correct [facility] Test Score Indication None or no significant cognitive impairment Lives In Multilevel home Number in Household 2 Sleeping Arrangement Own bed, in room alone Support System Spouse/Significant other, Family member(s), Cultural/Spiritual community Primary 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 Medication Self Home Medication Behavior Problems Forget to take takes Atorvastatin at supper to help remeber, but sometimes forgets to take Medication Adherence Method Does not use any method Current DME at Home Yes Uses cane and walker as needed Currently Receiving Skilled Services No Skilled Service Needs Anticipated No Employment Status Retired Financial Issues None Sources of Income Pension, Savings, Social Security Pt/CG Understand Health Plan Benefits Yes Benefits Adequate for the Members Needs Yes Rate Your Physical Health Good CM Hearing Evaluation No hearing impairment CM Vision Evaluation Vision impairment, but managed through assistive devices CM Speech Communication No communication impairment CM Sensory Perception No sensory perception impairment CM Fine, Gross Motor Skills No impairment musculoskeletal, fine, gross motor development General Symptoms None (more content not included)... Normal [facility] Comment on above: Other Comment: date error Population Health Population Health Problems Ongoing Anemia BMI 32.0-32.9,adult BMI 33.0-33.9,adult Fibromyalgia Hyperlipidemia Hypertension Hypoparathyroidism MGUS (monoclonal gammopathy of unknown significance) Nonsmoker Obesity (BMI 30-39.9) Osteoarthritis of knee Osteoporosis Peripheral neuropathy Sjogren's syndrome SK (seborrheic keratosis) Vitamin D deficiency Historical Breast cancer screening Hypothyroidism Procedure/Surgical History Bone marrow biopsy (08/13/2023), Ablation, Biopsy of breast, Biopsy of thyroid, Bone graft, Bone marrow biopsy, Cancer of skin, Cataract, Colonoscopy, Internal fixation of fracture, Mohs surgery, Parathyroidectomy, Repair of tendon, BREANNA BSO - Total abdominal hysterectomy and bilateral salpingo-oophorectomy. Medication List acetaminophen, 650 mg, PRN Aleve, 220 mg, Oral, q8hr, PRN atorvastatin 10 mg Tab, 10 mg= 1 tab(s), Oral, Daily, 4 refills fluocinonide Top 0.05% Crm 15 gram, See Instructions furosemide 20 mg Tab, See Instructions, 4 refills hydroxychloroquine 200 mg Tab, See Instructions ketoconazole Top 2% Shampoo, 1 torrie, Topical, Every other day ketoconazole topical, See Instructions levothyroxine 50 mcg (0.05 mg) Tab, 50 mcg= 1 tab(s), Oral, Daily, 1 refills lisinopril 10 mg Tab, 10 mg= 1 tab(s), Oral, Daily, 1 refills metronidazole topical 1% cream, 1 torrie, Topical, BID Potassium Chloride (Jdc-Fyzd-Sep 10) 10 mEq oral tablet, extended release, 10 mEq= 1 tab(s), Oral, Daily, 1 refills Systane, See Instructions Tums, 500 mg, Chewed, QID, PRN Vitamin D3 2000 intl units oral Tab, 50 mcg, Oral, Daily Allergies Demerol (Nausea) Neurontin (Unknown) Percocet (Nausea) morphine (Nausea) sulfa drugs (Unknown) Goals and 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s Care Plan Goal: Achieve Healthy BMI, Physicians Recommendation; Current 160 lbs Start Date: 2024 Target: - - Status: Not met Barriers: - - Comments: - - 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 - - Not done - - Gradually Increase Frequency of Exercise Sessions - - Not done - - Use Good Portion Control - - Not done - - Goal: Maintain Therapeutic BP and Prevent Complications Start Date: 2024 Target: - - Status: Not met Barriers: - - Comments: - - 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 - - Not done - - Keep Follow Up Appointments as Scheduled With Providers and Complete Testing/ Labs as Ordered - - Not done - - Take Medications as Prescribed - - Not done - - Regularly Monitor BP and Report Findings to Provider as Needed - - Not done - - Goal: Control Pain and Prevent Complications Related to Fibrmyalgia Start Date: 2024 Target: - - Status: Not met Barriers: - - Comments: - - 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 - - Not done - - Keep Follow Up Appointments as Scheduled - - Not done - - Take Medications as Prescribed - - Not done - - Stress Management Such as: deep breathing, meditation, relaxation exercises - - Not done - - Get Regular Aerobic Exercise or Yoga to Help Improve Physical Function/ Overall Well- being - - Not done - - Normal [facility] Ambulatory Visit Summaryon 0 07-21-2024 Ambulatory Visit Summary Ambulatory Visit Summary SINA PEREZ :1950 Visit Date:07/21/2024 Ambulatory Visit Instructions Your Diagnosis Post-nasal drip BMI 32.0-32.9,adult Obesity (BMI 30-39.9) Nonsmoker Hypertension Your Care Team Attending Physician - Jean Hair MD Primary Care Physician - Jean Hair MD This Is Your Medications List acetaminophen atorvastatin (atorvastatin 10 mg Tab) carboxymethylcellulose-sod ium hyaluronate cholecalciferol (Vitamin D3 2000 intl units oral Tab) fluocinonide topical (fluocinonide Top 0.05% Crm 15 gram) furosemide (furosemide 20 mg Tab) hydroxychloroquine (hydroxychloroquine 200 mg Tab) ketoconazole topical (ketoconazole Top 2% Shampoo) levothyroxine (levothyroxine 50 mcg (0.05 mg) Tab) lisinopril (lisinopril 10 mg Tab) metronidazole topical (metronidazole topical 1% cream) naproxen potassium chloride (Potassium Chloride (Skr-Ihem-Dvy 10) 10 mEq oral tablet, extended release) Procedures Performed Bone marrow biopsy (08/13/2023), Ablation, Biopsy of breast, Biopsy of thyroid, Bone graft, Bone marrow biopsy, Cancer of skin, Cataract, Colonoscopy, Internal fixation of fracture, Mohs surgery, Parathyroidectomy, Repair of tendon, BREANNA BSO - Total abdominal hysterectomy and bilateral salpingo-oophorectomy. Discharge Vitals Temperature (Tympanic) 36.9 ???C Heart Rate (Peripheral) 72 Respiratory Rate 18 Blood Pressure 142/84 Height 150 cm Height 59 in Weight 72.9 kg Weight 160.717 lb BMI 32.4 What to do next Scheduled Follow-Up Appointments 2024 3:20 PM EDT With: Jean Hair MD Where: [address] [place] [address]- 2024 3:30 PM EDT With: Where: [facility] [place] [address] [place] [address]- Medications What How Much When Instructions Unchanged [...] with 200mg once a day Unchanged ketoconazole topical (ketoconazole Top 2% Shampoo) [...] for pain Unchanged potassium chloride (Potassium Chloride (Jrv-Wron-Pny 10) 10 mEq oral tablet, extended release) 1 Tablets By Mouth Every day Allergies Demerol (Nausea) Neurontin (Unknown) Percocet (Nausea) morphine (Nausea) sulfa drugs (Unknown) Problems Ongoing - Any problem that you are currently receiving treatment for. Anemia BMI 32.0-32.9,adult BMI 33.0-33.9,adult Fibromyalgia Hyperlipidemia Hypertension Hypoparathyroidism MGUS (monoclonal gammopathy of unknown significance) Nonsmoker Obesity (BMI 30-39.9) Osteoarthritis of knee Osteoporosis Peripheral neuropathy Sjogren's [...] you for choosing us for your care. Toni Manzanares [facility] Family Medicine Office/Clini c Noteon 07-21-2024 Family Medicine Office/Clinic Note Family Medicine Office/Clinic Note Chief Complaint ER Follow up Patient presents with post-nasal drip and irritation in the throat. HPI Staff Sina is a 74 year old female presenting for ER follow up ER followup: Hospital: [facility] Visit date: 07/15/24 Symptoms the patient presented with: Right eye conjunctivitis Current concerns: Sore throat with eating. Difficulty swallowing food. History of Present Illness - The patient is a 74-year-old female presenting with post-nasal drip. - Symptoms include sore throat, difficulty swallowing, and throat irritation. - Eye swelling resolved with antibiotics. - No fever, chills, or significant cough noted. - Lack of visible tonsils suggests no swelling. - Suspected allergies related to family history, but not confirmed. - Claritin previously used, not taken recently. Review of Systems PHQ Score Initial Depression Screen Score: 0 SCORE Physical Exam Vitals & Measurements T: 36.9 ???C(Tympanic) HR: 72(Peripheral) RR: 18 BP: 142/84 SpO2: 97% HT: 59 in HT: 150 cm WT: 160.717 lb WT: 72.9 kg BMI: 32.4 General: alert, no acute distress ENMT: oral mucosa moist, postnasal drip observed, no swollen tonsils Cardiovascular: Regular rate and rhythm, normal peripheral perfusion Respiratory: Lungs clear to auscultation, respirations non labored Extremities: no deformity, no trauma Neurological: oriented x 4, level of consciousness appropriate for age, CN II-XII intact, motor strength equal & normal bilaterally, speech normal Abdomen: Soft, Non-tender, Non-distended, + Bowel sounds Assessment/Plan 1. Allergic conjunctivitis (H10.10: Acute atopic conjunctivitis, unspecified eye) - Resolving - Continue Abx. - Reviewed ER records. 2. Post-nasal drip (R09.82: Postnasal drip) - Continue nasal saline; consider allergy management. 3. BMI 32.0-32.9,adult (Z68.32: Body mass index [BMI] 32.0-32.9, adult) - BMI education added 4. Obesity (BMI 30-39.9) (E66.9: Obesity, unspecified) - Maintain healthy diet and exercise. 5. Nonsmoker (Z78.9: Other specified health status) - Please continue to not smoke. Ordered: Body Mass Index (BMI) documented 3008F Current tobacco non-user 1036F Depression Screening Negative 3352F Discharge medications reconciled with current medications in outpatient record 1111F Influenza immunization status assessed 1030F Medication list documented in medical record 1159F Most recent diastolic blood pressure 80-89 mm Hg 3079F Most recent systolic blood pressure >= 140 mm Hg 3077F Patient screen for fall risk: no falls in last year or 1 fall with no injury in last year 1101F Review of all meds by a prescribing practitioner or clinical pharmacist documented in EHR 1160F 6. Hypertension (I10: Essential (primary) hypertension) - Continue current management. - Recheck at next visit. - 74-year-old female with history of obesity and essential hypertension presenting with post-nasal drip. - Improved symptoms with antibiotics. - Possible allergies contributing to symptoms. During the visit, I discussed with the patient her symptoms of post-nasal drip and associated throat irritation. She reported improvement in her eye condition following antibiotic treatment and no significant lung involvement was found during examination. We talked about managing her symptoms with glzr-gyq-proraph options such as nasal saline. The potential for allergies was discussed, given her family history, even though she has not been formally tested. Regarding her obesity, we emphasized maintaining a healthy diet and exercise habits. As her essential hypertension treatment was not specified in this visit, the continuation of her current management plan was implied based on her history and prior diagnoses. The patient was encouraged to monitor her symptoms and return for follow-up should symptoms persist or worsen. Follow-up No qualifying data available Problem List/Past Medical History Ongoing Anemia BMI 32.0-32.9,adult BMI 33.0-33.9,adult Fibromyalgia Hyperlipidemia Hypertension Hypoparathyroidism MGUS (monoclonal gammopathy of unknown significance) Nonsmoker Obesity (BMI 30-39.9) Osteoarthritis of knee Osteoporosis Peripheral neuropathy Sjogren's syndrome SK (seborrheic keratosis) Vitamin D deficiency Historical Breast cancer screening Hypothyroidism Procedure/Surgical History Bone marrow biopsy (08/13/2023), Ablation, Biopsy of breast, Biopsy of thyroid, Bone graft, Bone marrow biopsy, Cancer of skin, Cataract, Colonoscopy, Internal fixation of fracture, Mohs surgery, Parathyroidectomy, Repair of tendon, BREANNA BSO - Total abdominal hysterectomy and bilateral salpingo-oophorectomy. Medications acetaminophen, 650 mg, PRN atorvastatin 10 mg Tab, 10 mg= 1 tab(s), Oral, Daily, 4 refills carboxymethylcellulose-sod ium hyaluronate, See Instructions fluocinonide Top 0.05% Crm 15 gram, See Instructions furosemide 20 mg Tab, See In (more content not included)... Normal [facility] Comment on above: Result Comment: Elec tronically Signed By: Alejandro BRADFORD, Jean Rainey\.br\Date and Time Signed: 07/21/24 07:45 EDT Ambulatory Visit Summaryon 0 06-30-2024 Ambulatory Visit [...] esophagitis Your Care Team Attending Physician - Jean Hair MD Primary Care Physician - Jean Hair MD This Is Your Medications List acetaminophen [...] 1% cream) naproxen potassium chloride (Potassium Chloride (Nih-Sdaa-Zwh 10) 10 mEq oral tablet, extended release) [...] Follow-Up Appointments 2024 9:30 AM EDT Where: [place] [address]- Medications What How Much When Instructions Unchanged [...] for pain Unchanged potassium chloride (Potassium Chloride (Qso-Xcov-Gog 10) 10 mEq oral tablet, extended release) [...] for choosing us for your care. Normal Manzanares [facility] Family Medicine Office/Clini c Noteon 06-30-2024 Family Medicine Office/Clinic Note Family Medicine Office/Clinic Note Chief Complaint Follow up The patient presents for a follow-up on multiple chronic health conditions and medications. [facility] Staff Pt presents today for [...] heard anything. Has been following oncology @ [facility]. PET scan for MGUS. Not approved by [...] with current medications in outpatient record 1111F [facility] [place] Influenza immunization status assessed [...] excess calories) Continue diet and exercise. Ordered: [facility] [place] Mamm Screen w/CAD if perf and 3D [place] 3. BMI 33.0-33.9,adult (Z68.33: Body mass index [BMI] 33.0-33.9, adult) BMI education added Ordered: [facility] [place] MA Mamm Screen w/CAD if perf and 3D [place] 4. Nonsmoker (Z78.9: Other specified health status) Please continue not to smoke and albuterol Ordered: [facility] [place] Referral [place] Mamm Screen w/CAD if perf and 3D [place] 5. Primary hypertension (I10: Essential (primary) hypertension) - Medications to remain; promote self-checking of blood pressure. Ordered: [facility] [place] Referral MA Mamm Screen w/CAD [...] without esoph (more content not included)... Normal [facility] Comment on above: Result Comment: Elec tronically Signed By: Alejandro BRADFORD, Jean Rainey\.br\Date and Time Signed: 06/30/24 09:03 EDT PROTEIN ELECTRO, RANDOM URIN Balbir 02-08-2024 ALBUMIN, URINE 25.3 % . [facility] OSMQJ-7-CHTYOEML, URINE 3.4 % . [facility] HOKMI-3-SHYHTZOW, URINE 7.9 % . [facility] BETA GLOBULIN, URINE 48 % . [facility] GAMMA GLOBULIN, URINE 15.3 % . [facility] M-SPIKE % Not Observed Not Observed [facility] PLEASE NOTE: Comment . [facility] Comment on above: Protein electrophore sis scan will follow via computer, mail, or transfer driver delivery. Performed at: [facility] [address] [id number] Residential Care Officer: Kristian Castro PhD, Phone: [phone] Protein (U) [Mass/Vol] 4.2 mg/dL Not Estab. [facility] Beta 2 Microglobulin, Serumo n 02-06-2024 Beta 2 Microglobulin, Serum 2.3 mg/L Normal 0.6-2.4 [facility] Comment on above: Result Comment: [facility] Immulite 2000 Immunochemiluminometric assay (ICMA) Values obtained with different assay methods or kits cannot be used interchangeably. Results cannot be interpreted as absolute evidence of the presence or absence of malignant disease. Performed at: - [address] [id number] Residential Care Officer: Camila Mckeon MD, Phone: [phone] Performed By: #### I FE SERUM, UPE RAND, SPE, B2-MICRO, KAPPA ####[facility] ,#### CMP, CBC ####[facility] [id number] CBC W Auto Differential pane l (Bld)on 02-06-2024 Basophils (Bld) [#/Vol] 0.1 10*3/uL 0.0 - 0.2 10*3/uL [facility] Basophils/100 WBC Manual cnt (Syn fld) 1 % . [facility] Eosinophils (Bld) [#/Vol] 0.1 10*3/uL 0.0 - 0.45 10*3/uL [facility] Eosinophils/100 WBC Manual cnt (Syn fld) 2.6 % . [facility] Erythrocyte distribution width (RBC) [Ratio] 13.1 % 11.9 - 15.3 % [facility] Hematocrit (Bld) [Volume fraction] 39.8 % 34.0 - 46.4 % [facility] Hemoglobin (Bld) [Mass/Vol] 13.3 g/dL 11.8 - 15.4 g/dL [facility] Interpretation and review of laboratory results Abnormal [facility] Lymphocytes (Bld) [#/Vol] 0.9 10*3/uL Low 1.00 - 4.8 10*3/uL [facility] Lymphocytes/100 WBC Manual cnt (Syn fld) 16.8 % . [facility] MCH (RBC) [Entitic mass] 30.8 pg 24.7 - 34.3 pg [facility] MCHC (RBC) [Mass/Vol] 33.3 g/dL 32.0 - 35.0 g/dL [facility] MCV (RBC) [Entitic vol] 92.5 fL 80 - 100 fL [facility] Monocytes (Bld) [#/Vol] 0.5 10*3/uL 0.0 - 0.8 10*3/uL [facility] Monocytes+Macrophages/1 00 WBC Manual cnt (Syn fld) 9.7 % . [facility] Neutrophils (Bld) [#/Vol] 3.9 10*3/uL 1.8 - 7.7 10*3/uL [facility] Neutrophils/100 WBC Manual cnt (Syn fld) 69.9 % . [facility] NRBC 0.1 /100{WBC} 0 - 0.5 /100{WBC} [facility] Platelet mean volume (Bld) [Entitic vol] 9.9 fL 6.3 - 10.7 fL [facility] Platelets (Bld) [#/Vol] 206 10*3/uL 150 - 450 10*3/uL [facility] RBC LM.HPF (Urine sed) [#/Area] 4.31 10*6/uL 3.60 - 5.00 10*6/uL [facility] WBC (Bld) [#/Vol] 5.6 10*3/uL 3.8 - 11.6 10*3/uL [facility] WBC LM.HPF (Urine sed) [#/Area] 5.6 10*3/uL 3.8 - 11.6 10*3/uL [facility] Complete Blood Count Auto Di ffon 02-06-2024 Basophils (Bld) [#/Vol] 0.1 10*3/uL Normal 0.0-0.2 [facility] Comment on above: Result Comment: PERF ORMED BY: [facility] [address] [place] [address] PATHOLOGIST VAT CLEANER SHALONDA LEWIS M.D. Performed By: #### I FE SERUM, UPE RAND, SPE, B2-MICRO, KAPPA ####[facility] ,#### CMP, CBC ####[address] Basophils/100 WBC (Bld) 1.0 % Normal . T augustus [facility] Comment on above: Performed By: #### I FE SERUM, UPE RAND, SPE, B2-MICRO, KAPPA ####[facility] ,#### CMP, CBC ####[address] Eosinophils (Bld) [#/Vol] 0.1 10*3/uL Normal 0.0-0.45 [facility] Comment on above: Performed By: #### I FE SERUM, UPE RAND, SPE, B2-MICRO, KAPPA ####[facility] ,#### CMP, CBC ####[address] Eosinophils/100 WBC (Bld) 2.6 % Normal . [facility] Comment on above: Performed By: #### I FE SERUM, UPE RAND, SPE, B2-MICRO, KAPPA ####[facility] ,#### CMP, CBC ####[address] Erythrocyte distribution width (RBC) [Ratio] 13.1 % Normal 11.9-15.3 [facility] Comment on above: Performed By: #### I FE SERUM, UPE RAND, SPE, B2-MICRO, KAPPA ####[facility] ,#### CMP, CBC ####[address] Hematocrit (Bld) [Volume fraction] 39.8 % Normal 34.0-46.4 [facility] Comment on above: Performed By: #### I FE SERUM, UPE RAND, SPE, B2-MICRO, KAPPA ####[facility] ,#### CMP, CBC ####[address] Hemoglobin (Bld) [Mass/Vol] 13.3 g/dL Normal 11.8-15.4 [facility] Comment on above: Performed By: #### I FE SERUM, UPE RAND, SPE, B2-MICRO, KAPPA ####[facility] ,#### CMP, CBC ####[address] Lymphocytes (Bld) [#/Vol] 0.9 10*3/uL Low 1.00-4.8 [facility] Comment on above: Performed By: #### I FE SERUM, UPE RAND, SPE, B2-MICRO, KAPPA ####[facility] ,#### CMP, CBC ####[address] Lymphocytes/100 WBC (Bld) 16.8 % Normal . [facility] Comment on above: Performed By: #### I FE SERUM, UPE RAND, SPE, B2-MICRO, KAPPA ####[facility] ,#### CMP, CBC ####[address] MCH (RBC) [Entitic mass] 30.8 pg Normal 24.7-34.3 [facility] Comment on above: Performed By: #### I FE SERUM, UPE RAND, SPE, B2-MICRO, KAPPA ####[facility] ,#### CMP, CBC ####[address] MCV (RBC) [Entitic vol] 92.5 fL Normal 80-100 T he [facility] Comment on above: Performed By: #### I FE SERUM, UPE RAND, SPE, B2-MICRO, KAPPA ####[facility] ,#### CMP, CBC ####[address] Mean Corpuscular HGB Conc 33.3 g/dL Normal 32.0-35.0 [facility] Comment on above: Performed By: #### I FE SERUM, UPE RAND, SPE, B2-MICRO, KAPPA ####[facility] ,#### CMP, CBC ####[address] Monocytes (Bld) [#/Vol] 0.5 10*3/uL Normal 0.0-0.8 [facility] Comment on above: Performed By: #### I FE SERUM, UPE RAND, SPE, B2-MICRO, KAPPA ####[facility] ,#### CMP, CBC ####[address] Monocytes/100 WBC (Bld) 9.7 % Normal . T he [facility] Comment on above: Performed By: #### I FE SERUM, UPE RAND, SPE, B2-MICRO, KAPPA ####[facility] ,#### CMP, CBC ####[address] Neutrophils (Bld) [#/Vol] 3.9 10*3/uL Normal 1.8-7.7 [facility] Comment on above: Performed By: #### I FE SERUM, UPE RAND, SPE, B2-MICRO, KAPPA ####[facility] ,#### CMP, CBC ####[address] Neutrophils/100 WBC (Bld) 69.9 % Normal . [facility] Comment on above: Performed By: #### I FE SERUM, UPE RAND, SPE, B2-MICRO, KAPPA ####[facility] ,#### CMP, CBC ####[address] NRBC% 0.1 /100{WBC} Normal 0-0.5 [facility] Comment on above: Performed By: #### I FE SERUM, UPE RAND, SPE, B2-MICRO, KAPPA ####[facility] ,#### CMP, CBC ####[address] Platelet mean volume (Bld) [Entitic vol] 9.9 fL Normal 6.3-10.7 [facility] Comment on above: Performed By: #### I FE SERUM, UPE RAND, SPE, B2-MICRO, KAPPA ####[facility] ,#### CMP, CBC ####[address] Platelets (Bld) [#/Vol] 206 10*3/uL Normal 150-450 [facility] Comment on above: Performed By: #### I FE SERUM, UPE RAND, SPE, B2-MICRO, KAPPA ####[facility] ,#### CMP, CBC ####[address] RBC (Bld) [#/Vol] 4.31 10*6/uL Normal 3.60-5.00 [facility] Comment on above: Performed By: #### I FE SERUM, UPE RAND, SPE, B2-MICRO, KAPPA ####[facility] ,#### CMP, CBC ####[address] WBC (Bld) [#/Vol] 5.6 10*3/uL Normal 3.8-11.6 [facility] Comment on above: Performed By: #### I FE SERUM, UPE RAND, SPE, B2-MICRO, KAPPA ####[facility] ,#### CMP, CBC ####[address] Comprehensive Metabolic Pane kourtney 02-06-2024 Albumin [Mass/Vol] 4.3 g/dL Normal 3.5-5.7 [facility] Comment on above: Performed By: #### I FE SERUM, UPE RAND, SPE, B2-MICRO, KAPPA ####[facility] ,#### CMP, CBC ####[place] [id number] [facility] Albumin/Globulin [Mass ratio] 1.5 {ratio} Normal [facility] Comment on above: Performed By: #### I FE SERUM, UPE RAND, SPE, B2-MICRO, KAPPA ####[facility] ,#### CMP, CBC ####[place] [id number] [facility] ALP [Catalytic activity/Vol] 86 U/L Normal 34-104 [facility] Comment on above: Performed By: #### I FE SERUM, UPE RAND, SPE, B2-MICRO, KAPPA ####[facility] ,#### CMP, CBC ####[address] ALT [Catalytic activity/Vol] 15 U/L Normal 7-52 [facility] Comment on above: Performed By: #### I FE SERUM, UPE RAND, SPE, B2-MICRO, KAPPA ####[facility] ,#### CMP, CBC ####[place] [id number] [facility] Anion gap [Moles/Vol] 13.1 mmol/L Normal 6.0-15.0 [facility] Comment on above: Performed By: #### I FE SERUM, UPE RAND, SPE, B2-MICRO, KAPPA ####[facility] ,#### CMP, CBC ####[place] [id number] [facility] AST [Catalytic activity/Vol] 25 U/L Normal 13-39 The [facility] Comment on above: Performed By: #### I FE SERUM, UPE RAND, SPE, B2-MICRO, KAPPA ####[facility] ,#### CMP, CBC ####[address] Bilirubin [Mass/Vol] 0.8 mg/dL Normal 0.3-1.0 [facility] Comment on above: Performed By: #### I FE SERUM, UPE RAND, SPE, B2-MICRO, KAPPA ####[facility] ,#### CMP, CBC ####[address] Calcium [Mass/Vol] 9.5 mg/dL Normal 8.6-10.3 [facility] Comment on above: Performed By: #### I FE SERUM, UPE RAND, SPE, B2-MICRO, KAPPA ####[facility] ,#### CMP, CBC ####[address] Chloride [Moles/Vol] 105 mmol/L Normal 98-107 [facility] Comment on above: Performed By: #### I FE SERUM, UPE RAND, SPE, B2-MICRO, KAPPA ####[facility] ,#### CMP, CBC ####[address] CO2 [Moles/Vol] 27.1 mmol/L Normal 21.0-31.0 [facility] Comment on above: Performed By: #### I FE SERUM, UPE RAND, SPE, B2-MICRO, KAPPA ####[facility] ,#### CMP, CBC ####[address] Creatinine [Mass/Vol] 0.84 mg/dL Normal 0.60-1.20 The [facility] Comment on above: Performed By: #### I FE SERUM, UPE RAND, SPE, B2-MICRO, KAPPA ####[facility] ,#### CMP, CBC ####[place] [address] [place] Creatinine Clr Calc Pharmacy 53.31 Normal The [facility] Comment on above: Result Comment: PERF ORMED BY: [facility] [address] [place] [address] PATHOLOGIST VAT CLEANER SHALONDA LEWIS M.D. Performed By: #### I FE SERUM, UPE RAND, SPE, B2-MICRO, KAPPA ####[facility] ,#### CMP, CBC ####[address] GFR/1.73 sq M.predicted MDRD (S/P/Bld) [Vol rate/Area] mL/min/{1.73_m2} Normal [facility] Comment on above: Performed By: #### I FE SERUM, UPE RAND, SPE, B2-MICRO, KAPPA ####[facility] ,#### CMP, CBC ####[address] Globulin (S) [Mass/Vol] 2.9 g/dL Normal T he [facility] Comment on above: Performed By: #### I FE SERUM, UPE RAND, SPE, B2-MICRO, KAPPA ####[facility] ,#### CMP, CBC ####[address] Glucose [Mass/Vol] 85 mg/dL Normal 70-100 [facility] Comment on above: Result Comment: [place] Glucose Reference Range is dependent on time and content of last meal. Glucose of more than 200 mg/dL in a nonstressed, ambulatory subject supports the diagnosis of Diabetes Mellitus. ADA recommended reference range Performed By: #### I FE SERUM, UPE RAND, SPE, B2-MICRO, KAPPA ####[facility] ,#### CMP, CBC ####[address] Potassium [Moles/Vol] 4.2 mmol/L Normal 3.5-5.1 [facility] Comment on above: Performed By: #### I FE SERUM, UPE RAND, SPE, B2-MICRO, KAPPA ####[facility] ,#### CMP, CBC ####[address] Protein [Mass/Vol] 7.2 g/dL Normal 6.4-8.9 The [facility] Comment on above: Performed By: #### I FE SERUM, UPE RAND, SPE, B2-MICRO, KAPPA ####[facility] ,#### CMP, CBC ####[address] Sodium [Moles/Vol] 141 mmol/L Normal 136-145 [facility] Comment on above: Performed By: #### I FE SERUM, UPE RAND, SPE, B2-MICRO, KAPPA ####[facility] ,#### CMP, CBC ####[address] Urea nitrogen [Mass/Vol] 28 mg/dL High 7-25 The [facility] Comment on above: Performed By: #### I FE SERUM, UPE RAND, SPE, B2-MICRO, KAPPA ####[facility] ,#### CMP, CBC ####[address] Comprehensive metabolic pane kourtney 02-06-2024 Albumin [Mass/Vol] 4.3 g/dL 3.5 - 5.7 g/dL [facility] Albumin/Globulin [Mass ratio] 1.5 {ratio} [facility] ALP [Catalytic activity/Vol] 86 U/L 34 - 104 U/L [facility] ALT [Catalytic activity/Vol] 15 U/L 7 - 52 U/L [facility] Anion gap [Moles/Vol] 13.1 mmol/L 6.0 - 15.0 meq/L [facility] AST [Catalytic activity/Vol] 25 U/L 13 - 39 U/L [facility] Bilirubin [Mass/Vol] 0.8 mg/dL 0.3 - 1 .0 mg/dL [facility] Calcium [Mass/Vol] 9.5 mg/dL 8.6 - 10. 3 mg/dL [facility] Chloride [Moles/Vol] 105 mmol/L 98 - 10 7 mmol/L [facility] CO2 [Moles/Vol] 27.1 mmol/L 21.0 - 31.0 mmol/L [facility] Creatinine (U) [Mass/Vol] 0.84 mg/dL 0.60 - 1.20 mg/dL [facility] CREATININE CLR CALC PHARMACY 53.31 [facility] ESTIMATED GFR mL/Min [facility] Globulin (S) [Mass/Vol] 2.9 g/dL [facility] Glucose [Mass/Vol] 85 mg/dL 70 - 100 mg/dL [facility] Comment on above: Random Glucose Refer ence Range is dependent on time and content of last meal. Glucose of more than 200 mg/dL in a nonstressed, ambulatory subject supports the diagnosis of Diabetes Mellitus. ADA recommended reference range Interpretation and review of laboratory results Abnormal [facility] Potassium [Moles/Vol] 4.2 mmol/L 3.5 - 5.1 mmol/L [facility] Protein [Mass/Vol] 7.2 g/dL 6.4 - 8.9 g/dL [facility] Sodium [Moles/Vol] 141 mmol/L 136 - 145 mmol/L [facility] Urea nitrogen [Mass/Vol] 28 mg/dL High 7 - 25 mg/dL [facility] Free K+L LT Chains, Qn, Son 02-06-2024 Free [place] Light Chains, S 26.2 mg/L High 3.3-19.4 [facility] Comment on above: Performed By: #### I FE SERUM, UPE RAND, SPE, B2-MICRO, KAPPA ####[facility] ,#### CMP, CBC ####[place] [id number] [address] Free [place] Light Chains, S 80.3 mg/L High 5.7-26.3 [facility] Comment on above: Performed By: #### I FE SERUM, UPE RAND, SPE, B2-MICRO, KAPPA ####[facility] ,#### CMP, CBC ####[address] [place]/Lambda Ratio, S 0.33 Normal 0.26-1.65 [facility] Comment on above: Result Comment: Perf ormed at: - [facility] [address] [id number] Residential Care Officer: Kristian Castro PhD, Phone: [phone] PERFORMED BY: [facility] [address] [place] [address] PATHOLOGIST VAT CLEANER SHALONDA LEWIS M.D. Performed By: #### I FE SERUM, UPE RAND, SPE, B2-MICRO, KAPPA ####[facility] ,#### CMP, CBC ####[address] Immunofixation,Serumon 02-05 Immunofixation, Serum Comment Critically abnormal . [facility] Comment on above: Result Comment: Immu nofixation shows IgG monoclonal protein with lambda light chain specificity. Performed By: #### I FE SERUM, UPE RAND, SPE, B2-MICRO, KAPPA ####[facility] ,#### CMP, CBC ####[place] [id number] [facility] Immunoglobulin A, Serum 79 mg/dL Normal 64-422 [facility] Comment on above: Performed By: #### I FE SERUM, UPE RAND, SPE, B2-MICRO, KAPPA ####[facility] ,#### CMP, CBC ####[place] [address] [facility] Immunoglobulin G 1276 mg/dL Normal 586-1602 [facility] Comment on above: Performed By: #### I FE SERUM, UPE RAND, SPE, B2-MICRO, KAPPA ####[facility] ,#### CMP, CBC ####[place] [address] [facility] Immunoglobulin M, Serum 46 mg/dL Normal 26-217 [facility] Comment on above: Result Comment: Perf ormed at: [facility] [place] [id number] [place], [place] [id number] Residential Care Officer: Kristian Castro PhD, Phone: [phone] Performed By: #### I FE SERUM, UPE RAND, SPE, B2-MICRO, KAPPA ####[facility] ,#### CMP, CBC ####[place] [address] [place] Protein Electro, Random Urin balbir 02-06-2024 Albumin, Urine 25.3 % Normal . [facility] Comment on above: Performed By: #### I FE SERUM, UPE RAND, SPE, B2-MICRO, KAPPA ####[facility] ,#### CMP, CBC ####[place] [address] [place] Zeiic-5-Fbbswghp, Urine 3.4 % Normal . [facility] Comment on above: Performed By: #### I FE SERUM, UPE RAND, SPE, B2-MICRO, KAPPA ####[facility] ,#### CMP, CBC ####[place] [address] [place] Ykasu-9-Tnmjadbw, Urine 7.9 % Normal . [facility] Comment on above: Performed By: #### I FE SERUM, UPE RAND, SPE, B2-MICRO, KAPPA ####[facility] ,#### CMP, CBC ####[place] [address] [place] Beta Globulin, Urine 48.0 % Normal . [facility] Comment on above: Performed By: #### I FE SERUM, UPE RAND, SPE, B2-MICRO, KAPPA ####[facility] ,#### CMP, CBC ####[place] [address] [place] Gamma Globulin, Urine 15.3 % Normal . [facility] Comment on above: Performed By: #### I FE SERUM, UPE RAND, SPE, B2-MICRO, KAPPA ####[facility] ,#### CMP, CBC ####[address] M-David % Not Observed Normal Not Observed [facility] Comment on above: Performed By: #### I FE SERUM, UPE RAND, SPE, B2-MICRO, KAPPA ####[facility] ,#### CMP, CBC ####[address] Please Note: Comment Normal . [facility] Comment on above: Result Comment: Prot ein electrophoresis scan will follow via computer, mail, or transfer driver delivery. Performed at: [facility] [address] [id number] Residential Care Officer: Kristian Castro PhD, Phone: [phone] PERFORMED BY: [place] [address] PATHOLOGIST VAT CLEANER SHALONDA LEWIS M.D. Performed By: #### I FE SERUM, UPE RAND, SPE, B2-MICRO, KAPPA ####[facility] ,#### CMP, CBC ####[address] Protein (U) [Mass/Vol] 4.2 mg/dL Normal Not Estab. Th e [facility] Comment on above: Performed By: #### I FE SERUM, UPE RAND, SPE, B2-MICRO, KAPPA ####[facility] ,#### CMP, CBC ####[address] Protein Electrophoresis, Ser umon 02-06-2024 Albumin [Mass/Vol] 3.7 g/dL Normal 2.9-4.4 [facility] Comment on above: Performed By: #### I FE SERUM, UPE RAND, SPE, B2-MICRO, KAPPA ####[facility] ,#### CMP, CBC ####[address] Albumin/Globulin [Mass ratio] 1.2 {ratio} Normal 0.7-1.7 [facility] Comment on above: Performed By: #### I FE SERUM, UPE RAND, SPE, B2-MICRO, KAPPA ####[facility] ,#### CMP, CBC ####[place] [address] [place] Mprqu-7-Yjqcwgbu 0.3 g/dL Normal 0.0-0.4 [facility] Comment on above: Performed By: #### I FE SERUM, UPE RAND, SPE, B2-MICRO, KAPPA ####[facility] ,#### CMP, CBC ####[address] Xqhcu-0-Kvuddiza 0.8 g/dL Normal 0.4-1.0 [facility] Comment on above: Performed By: #### I FE SERUM, UPE RAND, SPE, B2-MICRO, KAPPA ####[facility] ,#### CMP, CBC ####[place] [address] [place] Beta Globulin 1.0 g/dL Normal 0.7-1.3 [facility] Comment on above: Performed By: #### I FE SERUM, UPE RAND, SPE, B2-MICRO, KAPPA ####[facility] ,#### CMP, CBC ####[place] [address] [place] Gamma Globulin 1.2 g/dL Normal 0.4-1.8 [facility] Comment on above: Performed By: #### I FE SERUM, UPE RAND, SPE, B2-MICRO, KAPPA ####[facility] ,#### CMP, CBC ####[place] [address] [place] Globulin (S) [Mass/Vol] 3.2 g/dL Normal 2.2-3.9 [facility] Comment on above: Performed By: #### I FE SERUM, UPE RAND, SPE, B2-MICRO, KAPPA ####[facility] ,#### CMP, CBC ####[address] M-David 1.0 g/dL High Not Observed [facility] Comment on above: Performed By: #### I FE SERUM, UPE RAND, SPE, B2-MICRO, KAPPA ####[facility] ,#### CMP, CBC ####[address] Protein [Mass/Vol] 6.9 g/dL Normal 6.0-8.5 [facility] Comment on above: Performed By: #### I FE SERUM, UPE RAND, SPE, B2-MICRO, KAPPA ####[facility] ,#### CMP, CBC ####[address] SPE-Note Comment Normal . [facility] Comment on above: Result Comment: Prot ein electrophoresis scan will follow via computer, mail, or transfer driver delivery. Performed at: [facility] [place] [id number] Residential Care Officer: Kristian Castro PhD, Phone: [phone] Performed By: #### I FE SERUM, UPE RAND, SPE, B2-MICRO, KAPPA ####[facility] ,#### CMP, CBC ####[address] Ambulatory Visit Summaryon 1 03-08-2023 Ambulatory Visit Summary Ambulatory Visit Summary SINA PEREZ :1950 Visit Date:12/27/2023 Ambulatory Visit Instructions Your Diagnosis Encounter for annual wellness visit (AWV) in Medicare patient MGUS (monoclonal gammopathy of unknown significance) Hypoparathyroidism Hypertension Hyperlipidemia Other problems related to lifestyle Obesity due to excess calories Your Care Team Attending Physician - Jean Hair MD Primary Care Physician - Jean Hair MD This Is Your Medications List acetaminophen [...] 1% cream) naproxen potassium chloride (Potassium Chloride (Dbh-Ejnx-Cni 10) 10 mEq oral tablet, extended release) [...] Follow-Up Appointments Sunday 9:15 AM EDT With: Jean Hair MD Where: [address] [id number]- 2024 9:30 AM EDT With: Where: [address] [id number]- You Need to Complete the Following ALT, [...] for pain Unchanged potassium chloride (Potassium Chloride (Jlv-Bqtq-Itc 10) 10 mEq oral tablet, extended release) 1 Tablets By Mouth Every day Allergies Demerol (Nausea) Neurontin (Unknown) Pe (more content not included)... Normal [facility] Medicine Office/Clini c Noteon 01-07-2024 Family [...] Precautions for MERS/COVID-19 : N/A Mana Canas Rossana - 12/27/2023 13:10 EDT Medicare/Medicaid Summary Systolic Blood Pressure : 138 mmHg Diastolic Blood Pressure : 82 mmHg Blood Pressure Location : Left arm Blood Pressure Position : Sitting O2 Sat Resting/Exertion Alpha : Resting Peripheral Pulse Rate : 74 bpm SpO2 : 96 % Missael Mana Rossana - 12/27/2023 13:43 EDT Chief Complaint : Medicare [...] Pain Comments : leg and back pain MissaelMana Rossana - 12/27/2023 13:10 EDT Hearing and Vision Screening FT FT Whisper Test Comments : no issue or concern Vision Screen Comments : no issue or concern Milka Canasfer Rossana 12/27/2023 13:43 EDT Advance Directive FT Advance [...] 0 ; Comments: 07/24/2022 13:27 EDT - Roopa Granda LPN rt hip to right wrist ; Last Reviewed Dt/Tm: 12/27/2023 13:45:03 EDT Anesthesia Minutes: 0 ; Procedure Name: Cataract ; Procedure Minutes: 0 ; Comments: 07/24/2022 13:26 EDT - Roopa Granda LPN L left eye ; Last Reviewed Dt/Tm: [...] 13:27 EDT - Elinor Granda LPNith L right wrist ; Last Reviewed Dt/Tm: 12/27/2023 13:45:03 EDT Anesthesia Minutes: 0 ; Procedure Name: Cancer of skin ; Procedure Minutes: 0 ; Comments: 07/24/2022 13:29 EDT - 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 Normal [facility] Comment on above: Result Comment: Elec tronically Signed By: Jean Hair MD\.br\Date and Time Signed: 01/07/24 12:45 EST\.br\Electronically Co-Signed By: Mana Canas.br\Date and Time Co-Signed: 12/27/23 14:00 EDT .Interpretation:on HCV Ab IA Ql Comment Invalid Interpretation Code [facility] Comment on above: Result Comment: Not infected with HCV unless early or acute infection is suspected (which may be delayed in an immunocompromised individual), or other evidence exists to indicate HCV infection. Performed at: [address] [id number] PhD Gloria Townsend Performed By: #### 2 [id number] #### [facility] [address] [place] [address] HCV Antibody RFX to Quant PC Buck 01-02-2024 HCV IgG IA Ql Non-Reactive Invalid Interpretation Code Non Reactive [facility] Comment on above: Result Comment: Perf ormed at: [address] [id number] PhD Gloria Townsend Performed By: #### 2 [id number] #### [facility] [address] [place] [address] CHEMISTRYOrdered By: SYSTEM SYSTEM on 12-31-2023 Albumin [...] 12-31-2023 Albumin [Mass/Vol] 4.1 g/dL Normal 3.3-5.0 [facility] Comment on above: Performed By: #### 2 [id number] #### [facility] [address] [place] [address] Albumin/Globulin (S) [Mass conc ratio] 1.5 Normal 1.1-2.2 [facility] Comment on above: Performed By: #### 2 [id number] #### [facility] [address] [place] [address] ALP [Catalytic activity/Vol] 80 Int._Unit/L Normal 21-98 [facility] Comment on above: Performed By: #### 2 [id number] #### [facility] [address] [place] [address] ALT No additional P-5'-P [Catalytic activity/Vol] 17 Int._Unit/L Normal 6-46 [facility] Comment on above: Performed By: #### 2 [id number] #### [facility] [address] [place] [address] Anion gap [Moles/Vol] 9 mmol/L Normal 6-16 [facility] Comment on above: Performed By: #### 2 [id number] #### [facility] [address] [place] [address] AST [Catalytic activity/Vol] 28 Int._Unit/L Normal 5-43 [facility] Comment on above: Performed By: #### 2 [id number] #### [facility] [address] [place] [address] Bilirubin [Mass/Vol] 0.9 mg/dL Normal 0.0-1.1 [facility] Comment on above: Performed By: #### 2 [id number] #### [facility] [address] [place] [address] Calcium [Mass/Vol] 10.2 mg/dL Normal 8.9-11.1 [facility] Comment on above: Performed By: #### 2 [id number] #### [facility] [address] [place] [address] Chloride [Moles/Vol] 106 mmol/L Normal 101-111 [facility] Comment on above: Performed By: #### 2 [id number] #### [facility] [address] [place] [address] CO2 [Moles/Vol] 29 mmol/L Normal 21-31 [facility] Comment on above: Performed By: #### 2 [id number] #### [facility] [address] [place] [address] Creatinine [Mass/Vol] 0.9 mg/dL Normal 0.5-1.3 [facility] Comment on above: Performed By: #### 2 [id number] #### [facility] [address] [place] [address] Globulin (S) [Mass/Vol] 2.7 g/dL Normal 1.4-4.0 [facility] Comment on above: Performed By: #### 2 [id number] #### [facility] [address] [place] [address] Glucose [Mass/Vol] 84 mg/dL Normal 55-199 [facility] Comment on above: Performed By: #### 2 [id number] #### [facility] [address] [place] [address] Potassium [Moles/Vol] 4.1 mmol/L Normal 3.5-5.3 [facility] Comment on above: Performed By: #### 2 [id number] #### [facility] [address] [place] [address] Protein [Mass/Vol] 6.8 g/dL Normal 6.0-7.8 [facility] Comment on above: Performed By: #### 2 [id number] #### [facility] [address] [place] [address] Sodium [Moles/Vol] 140 mmol/L Normal 135-145 [facility] Comment on above: Performed By: #### 2 [id number] #### [facility] [address] [place] [address] Urea nitrogen [Mass/Vol] 26 mg/dL High 5-21 [facility] Comment on above: Performed By: #### 2 [id number] #### [facility] [facility] [address] [place] [address] Urea nitrogen/Creatinine [Mass ratio] 29 No Units High 10-20 [facility] Comment on above: Performed By: #### 2 [id number] #### [facility] [address] [place] [address] Lipid Panelon 12-31-2023 Cholesterol [Mass/Vol] 159 mg/dL Normal 120-200 [facility] Comment on above: Performed By: #### 2 [id number] #### [facility] [address] [place] [address] Cholesterol in HDL [Mass/Vol] 76 mg/dL Invalid Interpretation Code [facility] Comment on above: Result Comment: '>= 60 LOW RISK' '<= 40 HIGH RISK' Performed By: #### 2 [id number] #### [facility] [address] [place] [address] Cholesterol in LDL [Mass/Vol] 66 mg/dL Normal <=129 [facility] Comment on above: Performed By: #### 2 [id number] #### [facility] [address] [place] [address] Cholesterol in VLDL [Mass/Vol] 13 mg/dL Normal 7-40 [facility] Comment on above: Performed By: #### 2 527201 #### [facility] [address] [place] [address] Triglyceride [Mass/Vol] 66 mg/dL Normal <=149 [facility] Comment on above: Performed By: #### 2 111169 #### [facility] [address] [place] [address] TSH With T4fr Reflexon 12-30 TSH Qn 0.68 m[IU]/L Normal 0.34-5.60 [facility] Comment on above: Performed By: #### 1 [id number] #### [facility] [address] [place] [address] eGFRon 12-31-2023 eGFR 68 mL/min/1.73 m2 Normal >=59 [facility] Comment on above: Performed By: #### 1 [id number] #### [facility] [address] [place] [address] Basophil percentageOrdered B y: Tatiana Douglas on 08-22-2023 Basophil percentage 100 ug/dL 80-158 [facility] Comment on above: This test was develo ped and its performance characteristicsdetermined by [employer]. It has not been cleared orapproved by the Food and Drug Administration. Detection Limit = 5Performed at: [address] [id number] Director: Camila Mckeon MD, Phone: [phone] Beta 2 Microglobulin, Serumo n 08-22-2023 Beta 2 Microglobulin, Serum 2.3 mg/L Normal 0.6-2.4 [facility] Comment on above: Result Comment: [facility] Widespace 2000 Immunochemiluminometric assay (ICMA) Values obtained with different assay methods or kits cannot be used interchangeably. Results cannot be interpreted as absolute evidence of the presence or absence of malignant disease. Performed at: [address] [id number] Residential Care Officer: Camila Mckeon MD, Phone: [phone] PERFORMED BY: [place] [phone] PATHOLOGIST VAT CLEANER DOMI SMITH M.D. Performed By: #### C U, CERULOP, B2-MICRO #### [facility] , #### [id number] #### [address] Ceruloplasminon 08-22-2023 Ceruloplasmin 22.1 mg/dL Normal 19.0-39.0 [facility] Comment on above: Result Comment: Perf ormed at: [facility] [address] [id number] Residential Care Officer: Kristian Castro PhD, Phone: [phone] PERFORMED BY: [place] [address] PATHOLOGIST VAT CLEANER DOMI SMITH M.D. Performed By: #### C U, CERULOP, B2-MICRO #### [facility] , #### [id number] #### [facility] [address] [place] [id number] [facility] Copperon 08-22-2023 Copper 100 ug/dL Normal 80-158 [facility] Comment on above: Result Comment: This test was developed and its performance characteristics determined by [employer]. It has not been cleared or approved by the Food and Drug Administration. Detection Limit = 5 Performed at: [facility] [address] [id number] Residential Care Officer: Camila Mckeon MD, Phone: [phone] Performed By: #### C U, CERULOP, B2-MICRO #### [facility] , #### [id number] #### [facility] [address] [place] [id number] [facility] Folate [Mass/volume] in Seru m or PlasmaOrdered By: Tatiana Douglas on 08-22-2023 Folate [Mass/Vol] 17.8 ng/mL >5.9 [facility] Comment on above: Folate reference ran ge: >5.9 ng/mlThe WHO technical consultation on folate and vitamin [id number] has determined that folate concentrations lessthan 4 ng/ml are considered deficient. Serum or plasma eeqi-8-idibo globulin measurement (mass/volume)Ordered By: Tatiana Douglas on 08-22-2023 Vogp-6-Rbrkzazpucmfm [Mass/Vol] 2.3 ug/mL 0.6-2.4 [facility] Comment on above: Siemens Immulite 200 0 Immunochemiluminometric assay (ICMA)Values obtained with different assay methods or kits cannotbe used interchangeably. Results cannot be interpreted asabsolute evidence of the presence or absence of malignantdisease.Performed at: - [address] [id number] Director: Camila Mckeon MD, Phone: [phone] Serum or plasma ceruloplasmi n measurement (mass/volume)Ordered By: Tatiana Douglas on 08-22-2023 Ceruloplasmin [Mass/Vol] 22.1 mg/dL 19.0-39.0 [facility] Comment on above: Performed at: [address] [id number] Director: Kristian Castro PhD, Phone: [phone] Vit. B12/Folate Profileon Folate 17.8 ng/mL Normal >5.9 [facility] Comment on above: Result Comment: Destinee te reference range: >5.9 ng/ml The WHO technical consultation on folate and vitamin b12 deficiencies has determined that folate concentrations less than 4 ng/ml are considered deficient. PERFORMED BY: [place] [address] PATHOLOGIST VAT CLEANER DOMI SMITH M.D. Performed By: #### C U, CERULOP, B2-MICRO #### [facility] , #### [id number] #### [address] Vitamin B12 ser/plasOrdered By: Tatiana Douglas on 08-22-2023 Cobalamin (Vitamin B12) [Mass/Vol] 284 pg/mL Normal 180-914 [facility] Comment on above: Performed By: #### C U, CERULOP, B2-MICRO #### [facility] , #### [id number] #### [address] XR bone surveyon 08-22-2023 XR bone survey [facility] [place] [address] [place] [address] XRay Report Signed Patient: Sina Perez MR#: [id number] 43 : 1950 Acct:[id number] Age/Sex: 73 / F ADM Date: 08/22/23 Loc: Room: Type: [facility] Attending Dr: Tatiana Douglas MD [...] Ramu Rivera M.D.08/22/2023 11:53 AM Dictation Location: [place] [address] Transcribed By: [facility] 08/22/23 1153 Dictated By: Ramu Rivera DO 08/22/23 1150 Signed By: 08/22/23 1153 Normal [facility] Lab Reportson 08-16-2023 Lab Reports [id number] Normal [facility] Outside [facility] Correspo ndenceon 08-16-2023 Outside [facility] Correspondence [id number] Normal [facility] Ambulatory Visit Summaryon 0 08-09-2023 Ambulatory Visit Summary SINA PEREZ :1950 Visit Date:08/09/2023 Ambulatory Visit Instructions Your Diagnosis Hypoparathyroidism Sjogren's syndrome SK (seborrheic keratosis) MGUS (monoclonal gammopathy of unknown significance) Hypertension Anemia Breast cancer screening Nonsmoker Class 1 obesity due to excess calories in adult BMI 33.0-33.9,adult Your Care Team Attending Physician - Jean Hair MD Primary Care Physician - Jean Hair MD This Is Your Medications List acetaminophen [...] 1% cream) naproxen potassium chloride (Potassium Chloride (Qjl-Dkdg-Uyl 10) 10 mEq oral tablet, extended release) [...] Follow-Up Appointments 2023 1:00 PM EDT Where: [facility] [place] Normal [facility] Medicine Office/Clini c Noteon 08-09-2023 [...] they will discuss treatment for that. 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 Nonsmoker (Z78.9: Other specified health [...] # 90 tab(s), Refills(s) 1, Pharmacy: [facility], 146, cm, 08/09/23 10:30:00 EDT, Height/Length Dosing, 70.6, kg, 08/09/23 10:30:00 EDT, Weight Dosing lisinopril, 10 mg = 1 tab(s), Oral, Daily, # 90 tab(s), Refills(s) 1, Pharmacy: [facility], 146, cm, 08/09/23 10:30:00 EDT, Height/Length Dosing, 70.6, kg, 08/09/23 10:30:00 EDT, Weight Dosing potassium chloride, 10 mEq = 1 tab(s), Oral, Daily, # 90 tab(s), Refills(s) 1, Pharmacy: [facility], 146, cm, 08/09/23 10:30:00 EDT, Height/Length [...] 1 a (more content not included)... Normal [facility] Comment on above: Result Comment: Elec tronically Signed By: Alejandro BRADFORD, Jean Noriega.br\Date and Time Signed: 08/09/23 11:03 EDT Activated partial thrombopla stin time (aPTT) in platelet poor plasma by coagulation aOrdered By: Tatiana Douglas on 08-08-2023 aPTT Coag (PPP) [Time] 32.9 s 25.1-36.5 [facility] Comment on above: A hematocrit value g reater than 55% may lead to inaccurate results in coagulation testing. Patients having hematocrit values >55% require a special collection tube for coagulation studies. Please contact the laboratory at [phone] for redraw instructions. Automated basophil %Ordered By: Tatiana Douglas on 08-08-2023 Basophils/100 WBC (Bld) 0.8 % Normal . [facility] Comment on above: Performed By: #### C BC ####[address] Automated basophil countOrde red By: Tatiana Douglas on 08-08-2023 Basophils (Bld) [#/Vol] 0.0 10*3/uL Normal 0.0-0.2 [facility] Comment on above: Result Comment: PERF ORMED BY: [facility] [address] [place] [address] PATHOLOGIST VAT CLEANER DOMI SMITH M.D. Performed By: #### C BC ####[address] Automated blood monocyte cou ntOrdered By: Tatiana Douglas on 08-08-2023 Monocytes (Bld) [#/Vol] 0.5 10*3/uL Normal 0.0-0.8 [facility] Comment on above: Performed By: #### C BC ####[address] Automated eosinophil %Ordere d By: Tatiana Douglas on 08-08-2023 Eosinophils/100 WBC (Bld) 2.2 % Normal . [facility] Comment on above: Performed By: #### C BC ####[place] [id number] [address] Automated eosinophil countOr dered By: Tatiana Douglas on 08-08-2023 Eosinophils (Bld) [#/Vol] 0.1 10*3/uL Normal 0.0-0.45 [facility] Comment on above: Performed By: #### C BC ####[address] Automated monocyte %Ordered By: Tatiana Douglas on 08-08-2023 Monocytes/100 WBC (Bld) 9.4 % Normal . [facility] Comment on above: Performed By: #### C BC ####[address] Automated neutrophil %Ordere d By: Tatiana Douglas on 08-08-2023 Neutrophils/100 WBC (Bld) 62.6 % Normal . [facility] Comment on above: Performed By: #### C BC ####[address] guided bone marrow bx/asp iron 08-08-2023 CT guided bone marrow bx/aspir [facility] [place] [address] [place] [address] CT Scan Report Signed Patient: Sina Perez MR#: [id number] 44 : 1950 Acct:[id number] Age/Sex: 73 / F ADM Date: 08/08/23 Loc: CT Room: Type: [facility] Attending Dr: Tatiana Douglas MD Copies to: [...] Tommy Mathur M.D.08/08/2023 3:03 PM Dictation Location: [place] [address] Transcribed By: [facility] 08/08/23 1503 Dictated By: Tommy Mathur II, MD 08/08/23 1501 Signed By: 08/08/23 1503 Normal [facility] Coagulation Profileon 2023 aPTT Coag (Bld) [Time] 32.9 s Normal 25.1-36.5 [facility] Comment on above: Order Comment: STAT FOR BX Result Comment: A he matocrit value greater than 55% may lead to inaccurate results in coagulation testing. Patients having hematocrit values >55% require a special collection tube for coagulation studies. Please contact the laboratory at [phone] for redraw instructions. PERFORMED BY: [place] [id number] PATHOLOGIST VAT CLEANER DOMI SMITH M.D. Performed By: #### P P #### [address] Complete Blood Count Auto Di ffon 08-08-2023 Mean Corpuscular HGB Conc 33.6 g/dL Normal 32.0-35.0 [facility] Comment on above: Performed By: #### C BC ####[place] [address] [place] NRBC% 0.1 /100{WBC} Normal 0-0.5 [facility] Comment on above: Performed By: #### C BC ####[address] Erythrocyte distribution wid th [Ratio] by Automated countOrdered By: Tatiana Douglas on 08-08-2023 Erythrocyte distribution width (RBC) [Ratio] 13.6 % Normal 11.9-15.3 [facility] Comment on above: Performed By: #### C BC ####[address] Erythrocytes [#/volume] in B lood by Automated countOrdered By: Tatiana Douglas on 08-08-2023 RBC (Bld) [#/Vol] 4.38 10*6/uL Normal 3.60-5.00 [facility] Comment on above: Performed By: #### C BC ####[address] Hematocrit [Volume Fraction] of Blood by Automated countOrdered By: Tatiana Douglas on 08-08-2023 Hematocrit (Bld) [Volume fraction] 39.8 % Normal 34.0-46.4 [facility] Comment on above: Performed By: #### C BC ####[address] Hemoglobin [Mass/volume] in BloodOrdered By: Tatiana Douglas on 08-08-2023 Hemoglobin (Bld) [Mass/Vol] 13.4 g/dL Normal 11.8-15.4 [facility] Comment on above: Performed By: #### C BC ####[address] INR in Platelet poor plasma by Coagulation assayOrdered By: Tatiana Douglas on 08-08-2023 INR Coag (PPP) [Relative time] 0.9 {INR} Normal [facility] Comment on above: INR Therapeutic Rang [...] 4.5 Performed By: #### P P #### [address] 08-08-2023 L Specimen: [id number] Received: 08/08/23 [facility] Num: [id number] Spec Type: Bone [facility] Subm Dr: Tommy Mathur II, MD Tissues: A Bone Marrow Aspirate (Clot) (LT ILIAC CREST) B Bone Marrow Biopsy/Core (LT ILIAC CREST) Procedures: Peripheral Smr, Iron/2, HE/4, Gross/Micro L4/2, Bm Smear/2, Congo Red, AE1-AE3, CD138, CD20, CD3, CD34, CD56, Decalcification, IHC First AB, IHC Add AB, Bone Marrow TP, Iron smear/2, GIEMSA / Age/ Patient Sex Location Account Attending Physician Sina Perez 73/F CT [id number] Tatiana Douglas MD SPEC NUM: [id number] RECD: 08/08/23 STATUS: [facility] NUM: [id number] DARON: 08/08/[address]: Tommy Mathur II, MD ENTERED: 08/08/23 [facility] DR: Tatiana Douglas MD SPEC TYPE: Bone [facility] DEPT: ORDERED: Peripheral Smr, Iron/2, HE/4, Gross/Micro [...] GIEMSA STN/7 Supplemental Report Addendum 1 Entered: 10/02/23-145 Congo red special stain is negative for amyloid. Addendum Signed (signature on file) Shalonda Lewis MD 10/02/23 1453 Pathological Diagnosis Bone Marrow, Iliac Crest (core Biopsy, Clot And Aspirate Smears): Normocellular bone marrow (for age) with adequate trilineage hematopoiesis and mild plasmacytosis consistent with monoclonal gammopathy of undetermined significance (MGUS). Specimen: [id number] Received: 08/08/23-115 Status: [facility] Num: [id number] Spec Type: Bone Marro Eren Dr: Tommy Mathur II, MD Tissues: A Bone Marrow Aspirate (Clot) (LT ILIAC CREST) B Bone Marrow Biopsy/Core (LT ILIAC CREST) Procedures: Peripheral Smr, Iron/2, HE/4, Gross/Micro L4/2, Bm Smear/2, Congo Red, AE1-AE3, CD138, CD20, CD3, CD34, CD56, Decalcification, IHC First AB, IHC Add AB, Bone Marrow TP, Iron smear/2, GIEMSA STN/7 Patient: Sina Perez [id number] (Continued) Specimen: [id number] Received: 08/08/23 (Continued) Pathological Diagnosis (Continued) Signed (signature on file) Shalonda Lewis MD 08/14/231913 Specimen: [id number] Received: 08/08/23 Status: [facility] Num: [id number] Spec Type: Bone Marro Eren Dr: Tommy Mathur II, MD Tissues: A Bone Marrow Aspirate (Clot) (LT ILIAC CREST) B Bone Marrow Biopsy/Core (LT ILIAC CREST) Procedures: Peripheral Smr, Iron/2, HE/4, Gross/Micro L4/2, Bm Smear/2, Congo Red, AE1-AE3, CD138, CD20, CD3, CD34, CD56, Decalcification, IHC First AB, IHC Add AB, Bone Marrow TP, Iron smear/2, GIEMSA STN/7 Patient: Sina Perez [id number] (Continued) Specimen: [id number] Received: 08/08/23-1157 (Continued) Pathological [...] stores. (more content not included)... Normal [facility] Leukocytes [#/volume] correc annie for nucleated erythrocytes in Blood by Automated counOrdered By: Tatiana Douglas on 08-08-2023 WBC corrected for nucl RBC Auto (Bld) [#/Vol] 5.7 10*3/uL 3.8-11.6 [facility] Leukocytes [#/volume] in Blo od by Automated countOrdered By: Tatiana Douglas on 08-08-2023 WBC (Bld) [#/Vol] 5.7 10*3/uL Normal 3.8-11.6 [facility] Comment on above: Performed By: #### C BC ####[address] Lymphocytes [#/volume] in Bl ood by Automated countOrdered By: Tatiana Douglas on 08-08-2023 Lymphocytes (Bld) [#/Vol] 1.4 10*3/uL Normal 1.00-4.8 [facility] Comment on above: Performed By: #### C BC ####[address] Lymphocytes/100 leukocytes i n Blood by Automated countOrdered By: Tatiana Douglas on 08-08-2023 Lymphocytes/100 WBC (Bld) 25.0 % Normal . [facility] Comment on above: Performed By: #### C BC ####[address] MCH [Entitic mass] by Automa annie countOrdered By: Tatiana Douglas on 08-08-2023 MCH (RBC) [Entitic mass] 30.5 pg Normal 24.7-34.3 [facility] Comment on above: Performed By: #### C BC ####[address] MCHC Auto (RBC) [Mass/Vol]Or dered By: Tatiana Douglas on 08-08-2023 MCHC (RBC) [Mass/Vol] 33.6 g/dL 32.0-35.0 [facility] MCV [Entitic volume] by Auto mated countOrdered By: Tatiana Douglas on 08-08-2023 MCV (RBC) [Entitic vol] 90.9 fL Normal 80-100 [facility] Comment on above: Performed By: #### C BC ####[address] Neutrophils [#/volume] in Bl ood by Automated countOrdered By: Tatiana Douglas on 08-08-2023 Neutrophils (Bld) [#/Vol] 3.6 10*3/uL Normal 1.8-7.7 [facility] Comment on above: Performed By: #### C BC ####[address] Nucleated erythrocytes [Pres ence] in Blood by Automated countOrdered By: Tatiana Douglas on 08-08-2023 Nucleated RBC Auto Ql (Bld) 0.1 /100{WBC} 0-0.5 [facility] Platelet mean volume [Entiti c volume] in Blood by Automated countOrdered By: Tatiana Douglas on 08-08-2023 Platelet mean volume (Bld) [Entitic vol] 9.4 fL Normal 6.3-10.7 [facility] Comment on above: Performed By: #### C BC ####[place] [id number] [facility] Platelets [#/volume] in Bloo d by Automated countOrdered By: Tatiana Douglas on 08-08-2023 Platelets (Bld) [#/Vol] 183 10*3/uL Normal 150-450 [facility] Comment on above: Performed By: #### C BC ####[place] [address] [facility] Prothrombin time (PT)Ordered By: Tatiana Douglas on 08-08-2023 PT Coag (PPP) [Time] 10.7 s Normal 9.0-12.9 [facility] Comment on above: A hematocrit value g reater than 55% may lead to inaccurate results in coagulation testing. Patients having hematocrit values >55% require a special collection tube for coagulation studies. Please contact the laboratory at [phone] for redraw instructions. Order Comment: STAT FOR BX Result Comment: A he matocrit value greater than 55% may lead to inaccurate results in coagulation testing. Patients having hematocrit values >55% require a special collection tube for coagulation studies. Please contact the laboratory at [phone] for redraw instructions. Performed By: #### P P #### [facility] [address] Consultation Noteon 07-25-19 Consultation Note [id number] Normal [facility] Alanine aminotransferase [En zymatic activity/volume] in Serum or PlasmaOrdered By: Tatiana Douglas on 07-18-2023 ALT [Catalytic activity/Vol] 15 U/L Normal 7-52 [facility] Comment on above: Performed By: #### U PE RAND, KAPPA, SPE, MG SERUM #### [facility] , #### PROCRERAT, SCAN CBC, CMP #### [facility] [address] Albumin [Mass/volume] in Ser um or PlasmaOrdered By: Tatiana Douglas on 07-18-2023 Albumin [Mass/Vol] 3.9 g/dL Normal 2.9-4.4 [facility] Comment on above: Performed By: #### U PE RAND, KAPPA, SPE, MG SERUM ####[facility] ,#### PROCRERAT, SCAN CBC, CMP ####[facility] Msc0090 [address] Albumin [Mass/volume] in Ser um or Plasma by Bromocresol green (BCG) dye binding methoOrdered By: Tatiana Douglas on 07-18-2023 Albumin BCG dye [Mass/Vol] 4.4 g/dL 3.5-5.7 [facility] Albumin/Protein.total in 24 hour Urine by ElectrophoresisOrdered By: Tatiana Douglas on 07-18-2023 Albumin Elph (24H U) [Mass fraction] 23.6 % . [facility] Alkaline phosphatase [Enzyma tic activity/volume] in Serum or PlasmaOrdered By: Tatiana Douglas on 07-18-2023 ALP [Catalytic activity/Vol] 84 U/L Normal 34-104 [facility] Comment on above: Result Comment: PERF ORMED BY: [place] [address] PATHOLOGIST VAT CLEANER DOMI SMITH M.D. Performed By: #### U PE RAND, KAPPA, SPE, MG SERUM #### [facility] , #### PROCRERAT, SCAN CBC, CMP #### [facility] [address] Aspartate aminotransferase [ Enzymatic activity/volume] in Serum or PlasmaOrdered By: Tatiana Misael on 07-18-2023 AST [Catalytic activity/Vol] 23 U/L Normal 13-39 [facility] Comment on above: Performed By: #### U PE RAND, KAPPA, SPE, MG SERUM #### [facility] , #### PROCRERAT, SCAN CBC, CMP #### [facility] [address] Automated basophil %Ordered By: Tatiana Vicentese on 07-18-2023 Basophils/100 WBC (Bld) 0.7 % Normal . [facility] Comment on above: Performed By: #### U PE RAND, KAPPA, SPE, MG SERUM ####[facility] ,#### PROCRERAT, SCAN CBC, CMP ####[facility] [id number] [address] Automated basophil countOrde red By: Tatiana Vicentese on 07-18-2023 Basophils (Bld) [#/Vol] 0.0 10*3/uL Normal 0.0-0.2 [facility] Comment on above: Performed By: #### U PE RAND, KAPPA, SPE, MG SERUM ####[facility] ,#### PROCRERAT, SCAN CBC, CMP ####[address] Automated blood monocyte cou ntOrdered By: Tatiana Douglas on 07-18-2023 Monocytes (Bld) [#/Vol] 0.5 10*3/uL Normal 0.0-0.8 [facility] Comment on above: Performed By: #### U PE RAND, KAPPA, SPE, MG SERUM ####[facility] ,#### PROCRERAT, SCAN CBC, CMP ####[address] Automated eosinophil %Ordere d By: Tatiana Vicentese on 07-18-2023 Eosinophils/100 WBC (Bld) 2.8 % Normal . [facility] Comment on above: Performed By: #### U PE RAND, KAPPA, SPE, MG SERUM ####[facility] ,#### PROCRERAT, SCAN CBC, CMP ####[address] Automated eosinophil countOr dered By: Tatiana Vicentese on 07-18-2023 Eosinophils (Bld) [#/Vol] 0.2 10*3/uL Normal 0.0-0.45 [facility] Comment on above: Performed By: #### U PE RAND, KAPPA, SPE, MG SERUM ####[facility] ,#### PROCRERAT, SCAN CBC, CMP ####[address] Automated monocyte %Ordered By: Tatiana Misael on 07-18-2023 Monocytes/100 WBC (Bld) 8.2 % Normal . [facility] Comment on above: Performed By: #### U PE RAND, KAPPA, SPE, MG SERUM ####[facility] ,#### PROCRERAT, SCAN CBC, CMP ####[address] Automated neutrophil %Ordere d By: Tatiana Douglas on 07-18-2023 Neutrophils/100 WBC (Bld) 69.5 % Normal . [facility] Comment on above: Performed By: #### U PE RAND, KAPPA, SPE, MG SERUM ####[facility] ,#### PROCRERAT, SCAN CBC, CMP ####[facility] Iyz[address] Bilirubin.total [Mass/volume ] in Serum or PlasmaOrdered By: Tatiana Douglas on 07-18-2023 Bilirubin [Mass/Vol] 0.7 mg/dL Normal 0.3-1.0 [facility] Comment on above: Performed By: #### U PE RAND, KAPPA, SPE, MG SERUM #### [facility] , #### PROCRERAT, SCAN CBC, CMP #### [facility] [address] [place] [address] [place] cells [Presence] in Blo od by Light microscopyOrdered By: Tatiana Douglas on 07-18-2023 Edwina cells LM Ql (Bld) Slight [facility] Calcium [Mass/volume] in Ser um or PlasmaOrdered By: Tatiana Douglas on 07-18-2023 Calcium [Mass/Vol] 9.7 mg/dL Normal 8.6-10.3 [facility] Comment on above: Performed By: #### U PE RAND, KAPPA, SPE, MG SERUM #### [facility] , #### PROCRERAT, SCAN CBC, CMP #### [facility] [address] Carbon dioxide, total [Moles /volume] in Serum or PlasmaOrdered By: Tatiana Douglas on 07-18-2023 CO2 [Moles/Vol] 30.4 mmol/L Normal 21.0-31.0 [facility] Comment on above: Performed By: #### U PE RAND, KAPPA, SPE, MG SERUM #### [facility] , #### PROCRERAT, SCAN CBC, CMP #### [facility] [address] [place] [address] [place] Chloride [Moles/volume] in S ousmane or PlasmaOrdered By: Tatiana Misael on 07-18-2023 Chloride [Moles/Vol] 107 mmol/L Normal 98-107 [facility] Comment on above: Performed By: #### U PE RAND, KAPPA, SPE, MG SERUM #### [facility] , #### PROCRERAT, SCAN CBC, CMP #### [facility] [address] [place] [address] Comprehensive Metabolic Pane kourtney 07-18-2023 Albumin [Mass/Vol] 4.4 g/dL Normal 3.5-5.7 [facility] Comment on above: Performed By: #### U PE RAND, KAPPA, SPE, MG SERUM #### [facility] , #### PROCRERAT, SCAN CBC, CMP #### [address] GFR/1.73 sq M.predicted MDRD (S/P/Bld) [Vol rate/Area] mL/min/{1.73_m2} Normal [facility] Comment on above: Performed By: #### U PE RAND, KAPPA, SPE, MG SERUM #### [facility] , #### PROCRERAT, SCAN CBC, CMP #### [address] Creatinine [Mass/volume] in Serum or PlasmaOrdered By: Tatiana Douglas on 07-18-2023 Creatinine [Mass/Vol] 0.85 mg/dL Normal 0.60-1.20 [facility] Comment on above: Performed By: #### U PE RAND, KAPPA, SPE, MG SERUM #### [facility] , #### PROCRERAT, SCAN CBC, CMP #### [facility] [address] [place] [address] Creatinine [Mass/volume] in UrineOrdered By: Tatiana Douglas on 07-18-2023 Creatinine (U) [Mass/Vol] 85.0 mg/dL [facility] Comment on above: No reference range e stablished Erythrocyte distribution wid th [Ratio] by Automated countOrdered By: Tatiana Misael on 07-18-2023 Erythrocyte distribution width (RBC) [Ratio] 13.4 % Normal 11.9-15.3 [facility] Comment on above: Performed By: #### U PE RAND, KAPPA, SPE, MG SERUM ####[facility] ,#### PROCRERAT, SCAN CBC, CMP ####[address] Erythrocytes [#/volume] in B lood by Automated countOrdered By: Tatiana Misael on 07-18-2023 RBC (Bld) [#/Vol] 4.52 10*6/uL Normal 3.60-5.00 [facility] Comment on above: Performed By: #### U PE RAND, KAPPA, SPE, MG SERUM ####[facility] ,#### PROCRERAT, SCAN CBC, CMP ####[address] Free K+L LT Chains, Qn, Son 07-18-2023 Free [place] Light Chains, S 27.8 mg/L High 3.3-19.4 [facility] Comment on above: Performed By: #### U PE RAND, KAPPA, SPE, MG SERUM ####[facility] ,#### PROCRERAT, SCAN CBC, CMP ####[address] Free Lambda Light Chains, S 80.5 mg/L High 5.7-26.3 [facility] Comment on above: Performed By: #### U PE RAND, KAPPA, SPE, MG SERUM ####[facility] ,#### PROCRERAT, SCAN CBC, CMP ####[address] [place]/Lambda Ratio, S 0.35 Normal 0.26-1.65 [facility] Comment on above: Result Comment: Perf ormed at: CB - [facility] [place] [address] [place], [place] [id number] Residential Care Officer: Kristian Castro PhD, Phone: [phone] PERFORMED BY: [facility] [address] [place] [address] PATHOLOGIST VAT CLEANER DOMI SMITH M.D. Performed By: #### U PE RAND, KAPPA, SPE, MG SERUM ####[facility] ,#### PROCRERAT, SCAN CBC, CMP ####[facility] [id number] Gamma globulin/Protein.total in 24 hour Urine by ElectrophoresisOrdered By: Tatiana Douglas on 07-18-2023 Gamma globulin Elph (24H U) [Mass fraction] 14.6 % . [facility] Glucose [Mass/volume] in Ser um or PlasmaOrdered By: Tatiana Douglas on 07-18-2023 Glucose [Mass/Vol] 75 mg/dL Normal 70-100 [facility] Comment on above: ADA recommended refe rence rangeRandom Glucose Reference Range is dependent on time and content of last meal. Glucose of more than 200 mg/dL in a nonstressed, ambulatory subject supports the diagnosis of Diabetes Mellitus. Result Comment: [place] om Glucose Reference Range is dependent on time and content of last meal. Glucose of more than 200 mg/dL in a nonstressed, ambulatory subject supports the diagnosis of Diabetes Mellitus. ADA recommended reference range Performed By: #### U PE RAND, KAPPA, SPE, MG SERUM #### [facility] , #### PROCRERAT, SCAN CBC, CMP #### [facility] [address] Hematocrit [Volume Fraction] of Blood by Automated countOrdered By: Tatiana Douglas on 07-18-2023 Hematocrit (Bld) [Volume fraction] 41.4 % Normal 34.0-46.4 [facility] Comment on above: Performed By: #### U PE RAND, KAPPA, SPE, MG SERUM ####[facility] ,#### PROCRERAT, SCAN CBC, CMP ####[facility] [id number] [place] [id number] [facility] Hemoglobin [Mass/volume] in BloodOrdered By: Tatiana Douglas on 07-18-2023 Hemoglobin (Bld) [Mass/Vol] 13.7 g/dL Normal 11.8-15.4 [facility] Comment on above: Performed By: #### U PE RAND, KAPPA, SPE, MG SERUM ####[facility] ,#### PROCRERAT, SCAN CBC, CMP ####[place] [id number] [place] [id number] [facility] IgA [Mass/volume] in Serum o r PlasmaOrdered By: Tatiana Vicentese on 07-18-2023 IgA [Mass/Vol] 78 mg/dL 64-422 [facility] IgG [Mass/volume] in Serum o r PlasmaOrdered By: Tatiana Misael on 07-18-2023 IgG [Mass/Vol] 1223 mg/dL [phone] [facility] IgM [Mass/volume] in Serum o r PlasmaOrdered By: Tatiana Douglas on 07-18-2023 IgM [Mass/Vol] 39 mg/dL 26-217 [facility] Comment on above: Performed at: [address] Director: Kristian Castro PhD, Phone: [phone] Immunofixation,Serumon 07-17 Immunofixation, Serum Abnormal . [facility] Comment on above: Result Comment: Immu nofixation shows IgG monoclonal protein with lambda light chain specificity. Performed By: #### U PE RAND, KAPPA, SPE, MG SERUM ####[facility] ,#### PROCRERAT, SCAN CBC, CMP ####[place] [address] [place] [id number] [facility] Immunoglobulin A, Serum 78 mg/dL Normal 64-422 [facility] Comment on above: Performed By: #### U PE RAND, KAPPA, SPE, MG SERUM ####[facility] ,#### PROCRERAT, SCAN CBC, CMP ####[place] [id number] Immunoglobulin G 1223 mg/dL Normal 586-1602 [facility] Comment on above: Performed By: #### U PE RAND, KAPPA, SPE, MG SERUM ####[facility] ,#### PROCRERAT, SCAN CBC, CMP ####[address] Immunoglobulin M, Serum 39 mg/dL Normal 26-217 [facility] Comment on above: Result Comment: Perf ormed at: [facility] [place] [address] [place], [place] [id number] Residential Care Officer: Kristian Castro PhD, Phone: [phone] Performed By: #### U PE RAND, KAPPA, SPE, MG SERUM ####[facility] ,#### PROCRERAT, SCAN CBC, CMP ####[address] Immunoglobulin light chains. kappa.free [Mass/volume] in SerumOrdered By: Tatiana Douglas on 07-18-2023 Immunoglobulin light chains.kappa.free (S) [Mass/Vol] 27.8 mg/L High 3.3-19.4 [facility] Immunoglobulin light chains. kappa.free/Immunoglobulin light chains.lambda.free [MassOrdered By: Tatiana Douglas on 07-18-2023 Immunoglobulin light chains.kappa.free/Immun oglobulin light chains.lambda.free (S) [Mass ratio] 0.35 0.26-1.65 [facility] Comment on above: Performed at: [facility] [id number] [place], [place] [id number] Director: Kristian Castro PhD, Phone: [phone] Immunoglobulin light chains. lambda.free [Mass/volume] in Serum or PlasmaOrdered By: Tatiana Douglas on 07-18-2023 Immunoglobulin light chains.lambda.free [Mass/Vol] 80.5 mg/L High 5.7-26.3 [facility] Laboratory - Chemistry and C hemistry - challengeOrdered By: Tatiana Douglas on 07-18-2023 Protein [Mass/Vol] 1.0 g/dL High Not Observed [facility] Leukocytes [#/volume] correc annie for nucleated erythrocytes in Blood by Automated counOrdered By: Tatiana Douglas on 07-18-2023 WBC corrected for nucl RBC Auto (Bld) [#/Vol] 5.8 10*3/uL 3.8-11.6 [facility] Leukocytes [#/volume] in Blo od by Automated countOrdered By: Tatiana Vicentese on 07-18-2023 WBC (Bld) [#/Vol] 5.8 10*3/uL Normal 3.8-11.6 [facility] Comment on above: Performed By: #### U PE RAND, KAPPA, SPE, MG SERUM ####[facility] ,#### PROCRERAT, SCAN CBC, CMP ####[address] Lymphocytes [#/volume] in Bl ood by Automated countOrdered By: Tatiana Misael on 07-18-2023 Lymphocytes (Bld) [#/Vol] 1.1 10*3/uL Normal 1.00-4.8 [facility] Comment on above: Performed By: #### U PE RAND, KAPPA, SPE, MG SERUM ####[facility] ,#### PROCRERAT, SCAN CBC, CMP ####[place] [address] [place] Lymphocytes/100 leukocytes i n Blood by Automated countOrdered By: Tatiana Misael on 07-18-2023 Lymphocytes/100 WBC (Bld) 18.8 % Normal . [facility] Comment on above: Performed By: #### U PE RAND, KAPPA, SPE, MG SERUM ####[facility] ,#### PROCRERAT, SCAN CBC, CMP ####[place] [id number] [place] MCH [Entitic mass] by Automa annie countOrdered By: Tatiana Misael on 07-18-2023 MCH (RBC) [Entitic mass] 30.3 pg Normal 24.7-34.3 [facility] Comment on above: Performed By: #### U PE RAND, KAPPA, SPE, MG SERUM ####[facility] ,#### PROCRERAT, SCAN CBC, CMP ####[address] MCHC Auto (RBC) [Mass/Vol]Or dered By: Tatiana Douglas on 07-18-2023 MCHC (RBC) [Mass/Vol] 33.0 g/dL 32.0-35.0 [facility] MCV [Entitic volume] by Auto mated countOrdered By: Tatiana Douglas on 07-18-2023 MCV (RBC) [Entitic vol] 91.8 fL Normal 80-100 [facility] Comment on above: Performed By: #### U PE NIURKA, KAPPA, SPE, MG SERUM ####[facility] ,#### PROCRERAT, SCAN CBC, CMP ####[address] Neutrophils [#/volume] in Bl ood by Automated countOrdered By: Tatiana Douglas on 07-18-2023 Neutrophils (Bld) [#/Vol] 4.0 10*3/uL Normal 1.8-7.7 [facility] Comment on above: Performed By: #### U PE RAND, KAPPA, SPE, MG SERUM ####[facility] ,#### PROCRERAT, SCAN CBC, CMP ####[address] No Panel InformationOrdered By: Tatiana Douglas on 07-18-2023 Estimated GFR (CKD-EPI) > 60.0 mL/Min [facility] Creatinine Clearance (Chem N/A [facility] Protein Electrophoresis Note See comment . [facility] Comment on above: Protein electrophore sis scan will follow via computer,mail, or transfer driver delivery.Performed at: [address] [id number] Director: Kristian Castro PhD, Phone: [phone] Serum Immunofixation See comment Abnormal . [facility] Comment on above: Immunofixation shows IgG monoclonal protein with lambdalight chain specificity. Urine Random Prot Electrophor Note See comment . [facility] Comment on above: Protein electrophore sis scan will follow via computer,mail, or transfer driver delivery.Performed at: - [place] [id number] [place], [place] [id number] Director: Kristian Castro PhD, Phone: [phone] Nucleated erythrocytes [Pres ence] in Blood by Automated countOrdered By: Tatiana Douglas on 07-18-2023 Nucleated RBC Auto Ql (Bld) 0.0 /100{WBC} 0-0.5 [facility] Platelet adequacy [Presence] in Blood by Light microscopyOrdered By: Tatiana Douglas on 07-18-2023 Platelets LM Ql (Bld) Normal Normal [facility] Platelet mean volume [Entiti c volume] in Blood by Automated countOrdered By: Tatiana Douglas on 07-18-2023 Platelet mean volume (Bld) [Entitic vol] 9.4 fL Normal 6.3-10.7 [facility] Comment on above: Performed By: #### U PE RAND, KAPPA, SPE, MG SERUM ####[facility] ,#### PROCRERAT, SCAN CBC, CMP ####[facility] [id number] Platelet morphology finding [Identifier] in BloodOrdered By: Tatiana Douglas on 07-18-2023 Platelet morphology finding Nom (Bld) N/A [facility] Platelets Large [Presence] i n Blood by Light microscopyOrdered By: Tatiana Douglas on 07-18-2023 Platelets Large LM Ql (Bld) Slight [facility] Platelets [#/volume] in Bloo d by Automated countOrdered By: Tatiana Douglas on 07-18-2023 Platelets (Bld) [#/Vol] 205 10*3/uL Normal 150-450 [facility] Comment on above: Performed By: #### U PE RAND, KAPPA, SPE, MG SERUM ####[facility] ,#### PROCRERAT, SCAN CBC, CMP ####[facility] Poikilocytosis [Presence] in Blood by Light microscopyOrdered By: Tatiana Douglas on 07-18-2023 Poikilocytosis LM Ql (Bld) [facility] Polychromasia [Presence] in Blood by Light microscopyOrdered By: Tataina Douglas on 07-18-2023 Polychromasia LM Ql (Bld) [facility] Potassium [Moles/volume] in Serum or PlasmaOrdered By: Tatiana Douglas on 07-18-2023 Potassium [Moles/Vol] 4.2 mmol/L Normal 3.5-5.1 [facility] Comment on above: Performed By: #### U PE RAND, KAPPA, SPE, MG SERUM #### [facility] , #### PROCRERAT, SCAN CBC, CMP #### [facility] [address] Protein Creat Ratio Ur Rando mon 07-18-2023 Creatinine, Urine (Random) 85.0 mg/dL Normal [facility] Comment on above: Result Comment: No r eference range established Performed By: #### U PE RAND, KAPPA, SPE, MG SERUM #### [facility] , #### PROCRERAT, SCAN CBC, CMP #### [facility] [address] [place] [address] [place] Protein (U) [Mass/Vol] 7 mg/dL Normal 0-9 [facility] e [facility] Comment on above: Performed By: #### U PE RAND, KAPPA, SPE, MG SERUM #### [facility] , #### PROCRERAT, SCAN CBC, CMP #### [facility] [address] Urine Protein/Creatinine Ratio 82 mg/g{Cre} Normal 0-200 [facility] Comment on above: Result Comment: PERF ORMED BY: [place] [address] PATHOLOGIST VAT CLEANER DOMI SMITH M.D. Performed By: #### U PE RAND, KAPPA, SPE, MG SERUM #### [facility] , #### PROCRERAT, SCAN CBC, CMP #### [place] [address] [place] Protein Electro, Random Urin balbir 07-18-2023 Albumin, Urine 23.6 % Normal . [facility] Comment on above: Performed By: #### U PE RAND, KAPPA, SPE, MG SERUM ####[facility] ,#### PROCRERAT, SCAN CBC, CMP ####[place] [address] [place] Mmntk-0-Wbwvondf, Urine 6.3 % Normal . [facility] Comment on above: Performed By: #### U PE RAND, KAPPA, SPE, MG SERUM ####[facility] ,#### PROCRERAT, SCAN CBC, CMP ####[place] [address] [place] Dxdga-2-Ywqpylxp, Urine 14.1 % Normal . [facility] Comment on above: Performed By: #### U PE RAND, KAPPA, SPE, MG SERUM ####[facility] ,#### PROCRERAT, SCAN CBC, CMP ####[place] [address] [place] Beta Globulin, Urine 41.3 % Normal . [facility] Comment on above: Performed By: #### U PE RAND, KAPPA, SPE, MG SERUM ####[facility] ,#### PROCRERAT, SCAN CBC, CMP ####[place] [address] [place] Gamma Globulin, Urine 14.6 % Normal . [facility] Comment on above: Performed By: #### U PE RAND, KAPPA, SPE, MG SERUM ####[facility] ,#### PROCRERAT, SCAN CBC, CMP ####[address] M-David % Not Observed Normal Not Observed [facility] Comment on above: Performed By: #### U PE RAND, KAPPA, SPE, MG SERUM ####[facility] ,#### PROCRERAT, SCAN CBC, CMP ####[address] Please Note: Normal . [facility] Comment on above: Result Comment: Prot ein electrophoresis scan will follow via computer, mail, or transfer driver delivery. Performed at: [facility] [address] [id number] Residential Care Officer: Kristian Castro PhD, Phone: [phone] PERFORMED BY: [place] [address] PATHOLOGIST VAT CLEANER DOMI SMITH M.D. Performed By: #### U PE RAND, KAPPA, SPE, MG SERUM ####[facility] ,#### PROCRERAT, SCAN CBC, CMP ####[address] Protein Electrophoresis, Ser umon 07-18-2023 Tonuy-6-Pibhiymq 0.2 g/dL Normal 0.0-0.4 [facility] Comment on above: Performed By: #### U PE RAND, KAPPA, SPE, MG SERUM ####[facility] ,#### PROCRERAT, SCAN CBC, CMP ####[address] Gqgqc-3-Pifgnixn 0.7 g/dL Normal 0.4-1.0 [facility] Comment on above: Performed By: #### U PE RAND, KAPPA, SPE, MG SERUM ####[facility] ,#### PROCRERAT, SCAN CBC, CMP ####[place] [address] Beta Globulin 0.9 g/dL Normal 0.7-1.3 [facility] Comment on above: Performed By: #### U PE RAND, KAPPA, SPE, MG SERUM ####[facility] ,#### PROCRERAT, SCAN CBC, CMP ####[address] Gamma Globulin 1.2 g/dL Normal 0.4-1.8 [facility] Comment on above: Performed By: #### U PE RAND, KAPPA, SPE, MG SERUM ####[facility] ,#### PROCRERAT, SCAN CBC, CMP ####[address] M-David 1.0 g/dL High Not Observed [facility] Comment on above: Performed By: #### U PE RAND, KAPPA, SPE, MG SERUM ####[facility] ,#### PROCRERAT, SCAN CBC, CMP ####[address] SPE-Note Normal . [facility] Comment on above: Result Comment: Prot ein electrophoresis scan will follow via computer, mail, or transfer driver delivery. Performed at: [address] [id number] Residential Care Officer: Kristian Castro PhD, Phone: [phone] Performed By: #### U PE RAND, KAPPA, SPE, MG SERUM ####[facility] ,#### PROCRERAT, SCAN CBC, CMP ####[address] Protein [Mass/volume] in Ser um or PlasmaOrdered By: Tatiana Douglas on 07-18-2023 Protein [Mass/Vol] 7.1 g/dL Normal 6.4-8.9 [facility] Comment on above: Performed By: #### U PE RAND, KAPPA, SPE, MG SERUM #### [facility] , #### PROCRERAT, SCAN CBC, CMP #### [facility] [address] Protein [Mass/Vol] 6.9 g/dL Normal 6.0-8.5 [facility] Comment on above: Performed By: #### U PE RAND, KAPPA, SPE, MG SERUM ####[facility] ,#### PROCRERAT, SCAN CBC, CMP ####[facility] [id number] [place] [address] Protein [Mass/volume] in Uri neOrdered By: Tatiana Douglas on 07-18-2023 Protein (U) [Mass/Vol] 6.3 mg/dL Normal Not Estab. [facility] Comment on above: Performed By: #### U PE RAND, KAPPA, SPE, MG SERUM ####[facility] ,#### PROCRERAT, SCAN CBC, CMP ####[address] Protein.monoclonal/Protein.t otal in 24 hour Urine by ElectrophoresisOrdered By: Tatiana Douglas on 07-18-2023 Protein.monoclonal Elph (24H U) [Mass fraction] Not observed % Not Observed [facility] RBC morphologyOrdered By: Mayito Douglas on 07-18-2023 RBC morphology finding Nom (Bld) N/A [facility] Red blood cell stomatocyte d etectionOrdered By: Tatiana Douglas on 07-18-2023 Stomatocytes LM Ql (Bld) Slight [facility] Scan and CBCon 07-18-2023 Crenated RBC Slight Normal [facility] Comment on above: Performed By: #### U PE RAND, KAPPA, SPE, MG SERUM ####[facility] ,#### PROCRERAT, SCAN CBC, CMP ####[facility] [id number] [place] [address] Large Platelets Slight Normal [facility] Comment on above: Result Comment: PERF ORMED BY: [facility] [address] PATHOLOGIST VAT CLEANER DOMI SMITH M.D. Performed By: #### U PE RAND, KAPPA, SPE, MG SERUM ####[facility] ,#### PROCRERAT, SCAN CBC, CMP ####[address] Mean Corpuscular HGB Conc 33.0 g/dL Normal 32.0-35.0 [facility] Comment on above: Performed By: #### U PE RAND, KAPPA, SPE, MG SERUM ####[facility] ,#### PROCRERAT, SCAN CBC, CMP ####[address] NRBC% 0.0 /100{WBC} Normal 0-0.5 [facility] Comment on above: Performed By: #### U PE RAND, KAPPA, SPE, MG SERUM ####[facility] ,#### PROCRERAT, SCAN CBC, CMP ####[address] Platelet Estimate Normal Normal Normal [facility] Comment on above: Performed By: #### U PE RAND, KAPPA, SPE, MG SERUM ####[facility] ,#### PROCRERAT, SCAN CBC, CMP ####[address] Poikilocytosis Slight Normal [facility] Comment on above: Performed By: #### U PE RAND, KAPPA, SPE, MG SERUM ####[facility] ,#### PROCRERAT, SCAN CBC, CMP ####[address] Polychromasia Slight Normal [facility] Comment on above: Performed By: #### U PE RAND, KAPPA, SPE, MG SERUM ####[facility] ,#### PROCRERAT, SCAN CBC, CMP ####[address] Stomatocytes Slight Normal [facility] Comment on above: Performed By: #### U PE RAND, KAPPA, SPE, MG SERUM ####[facility] ,#### PROCRERAT, SCAN CBC, CMP ####[address] Serum globulin measurement ( mass/volume)Ordered By: Tatiana Douglas on 07-18-2023 Globulin (S) [Mass/Vol] 3.0 g/dL Normal 2.2-3.9 [facility] Comment on above: Performed By: #### U PE RAND, KAPPA, SPE, MG SERUM ####[facility] ,#### PROCRERAT, SCAN CBC, CMP ####[address] Serum globulin measurement b y calculation (mass/volume)Ordered By: Tatiana Douglas on 07-18-2023 Globulin (S) [Mass/Vol] 2.7 g/dL Normal [facility] Comment on above: Performed By: #### U PE RAND, KAPPA, SPE, MG SERUM #### [facility] , #### PROCRERAT, SCAN CBC, CMP #### [facility] [address] [place] [address] Serum or plasma albumin/glob ulin mass ratioOrdered By: Tatiana Douglas on 07-18-2023 Albumin/Globulin [Mass ratio] 1.6 {ratio} Normal [facility] Comment on above: Performed By: #### U PE RAND, KAPPA, SPE, MG SERUM #### [facility] , #### PROCRERAT, SCAN CBC, CMP #### [facility] [address] Albumin/Globulin [Mass ratio] 1.3 {ratio} Normal 0.7-1.7 [facility] Comment on above: Performed By: #### U PE RAND, KAPPA, SPE, MG SERUM ####[facility] ,#### PROCRERAT, SCAN CBC, CMP ####[facility] [id number] Serum or plasma alpha 1 glob ulin measurement by electrophoresis (mass/volume)Ordered By: Tatiana Misael on 07-18-2023 Alpha 1 globulin Elph [Mass/Vol] 0.2 g/dL 0.0-0.4 [facility] Serum or plasma alpha 2 glob ulin measurement by electrophoresis (mass/volume)Ordered By: Tatiana Misael on 07-18-2023 Alpha 2 globulin Elph [Mass/Vol] 0.7 g/dL 0.4-1.0 [facility] Serum or plasma anion gap de terminationOrdered By: Tatiana Misael on 07-18-2023 Anion gap [Moles/Vol] 6.8 mmol/L Normal 6.0-15.0 [facility] Comment on above: Performed By: #### U PE RAND, KAPPA, SPE, MG SERUM #### [facility] , #### PROCRERAT, SCAN CBC, CMP #### [facility] [address] Serum or plasma beta globuli n measurement by electrophoresis (mass/volume)Ordered By: Tatiana Misael on 07-18-2023 Beta globulin Elph [Mass/Vol] 0.9 g/dL 0.7-1.3 [facility] [facility] Serum or plasma gamma globul in measurement by electrophoresis (mass/volume)Ordered By: Tatiana Misael on 07-18-2023 Gamma globulin Elph [Mass/Vol] 1.2 g/dL 0.4-1.8 [facility] Sodium [Moles/volume] in Ser um or PlasmaOrdered By: Tatiana Misael on 07-18-2023 Sodium [Moles/Vol] 140 mmol/L Normal 136-145 [facility] Comment on above: Performed By: #### U PE RAND, KAPPA, SPE, MG SERUM #### [facility] , #### PROCRERAT, SCAN CBC, CMP #### [facility] [address] [place] [address] [place] Urea nitrogen [Mass/volume] in Serum or PlasmaOrdered By: Tatiana Douglas on 07-18-2023 Urea nitrogen [Mass/Vol] 32 mg/dL High 7-25 [facility] Comment on above: Performed By: #### U PE RAND, KAPPA, SPE, MG SERUM #### [facility] , #### PROCRERAT, SCAN CBC, CMP #### [facility] [address] Urine alpha 1 globulin/total protein by electrophoresisOrdered By: Tatiana Douglas on 07-18-2023 Alpha 1 globulin Elph (U) [Mass fraction] 6.3 % . [facility] Urine alpha 2 globulin/total protein ratio by electrophoresisOrdered By: Tatiana Douglas on 07-18-2023 Alpha 2 globulin Elph (U) [Mass fraction] 14.1 % . [facility] Urine beta globulin measurem ent by electrophoresis (mass/volume)Ordered By: Tatiana Dogulas on 07-18-2023 Beta globulin Elph (U) [Mass/Vol] 41.3 % . [facility] Urine protein/creatinine rat ioOrdered By: Tatiana Douglas on 07-18-2023 Protein/Creatinine (U) [Ratio] 82 mg/g{Cre} 0-200 [facility] C3 and C4 COMPLEMENTon 06-22 Complement C3, Serum 149 mg/dL Normal 82-167 [facility] Comment on above: Performed By: #### C ROMEO #### [facility] [address] [address] [address] Yaneth Walton Complement C4, Serum 31 mg/dL Normal 12-38 [facility] Comment on above: Performed By: #### C ROMEO #### [facility] [address] [address] [address] Yaneth Walton CBC AUTO DIFFon 06-21-2022 BASO # 0.0 103/ul Normal 0.0-0.1 [facility] Comment on above: Performed By: #### C BC #### [facility] [address] [place] [address] Dr. Yaneth Walton Basophils/100 WBC (Bld) 0.6 % Normal 0.2-2.0 [facility] Comment on above: Performed By: #### C BC #### [facility] [address] [place] [address] Dr. Yaneth Walton EO # 0.1 103/ul Normal 0.0-0.7 [facility] Comment on above: Performed By: #### C BC #### [facility] [address] [place] [address] Dr. Yaneth Walton Eosinophils/100 WBC (Bld) 2.8 % Normal 0.9-7.0 [facility] Comment on above: Performed By: #### C BC #### [facility] [address] [place] [address] Dr. Yaneth Walton Erythrocyte distribution width (RBC) [Ratio] 11.9 % Normal 11.0-15.0 [facility] Comment on above: Performed By: #### C BC #### [facility] [address] [place] [address] Dr. Yaneth Walton Hematocrit (Bld) [Volume fraction] 40.3 % Normal 36.0-48.0 [facility] Comment on above: Performed By: #### C BC #### [facility] [address] [place] [address] Dr. Yaneth Walton Hemoglobin (Bld) [Mass/Vol] 13.3 g/dL Normal 12.0-16.0 [facility] Comment on above: Performed By: #### C BC #### [facility] [address] [place] [address] Dr. Yaneth Walton IG # 0.01 10e3/ul Normal 0.00-0.03 [facility] Comment on above: Performed By: #### C BC #### [facility] [address] [place] [address] Dr. Yaneth Walton IG % 0.2 % Normal 0.0-0.5 [facility] Comment on above: Performed By: #### C BC #### [facility] [address] [place] [address] Dr. Yaneth Walton LYMPH # 1.0 103/ul Critically low 1.2-3.8 [facility] Comment on above: Performed By: #### C BC #### [facility] [address] [place] [address] Dr. Yaneth Walton Lymphocytes/100 WBC (Bld) 20.9 % Normal 20.5-60.0 [facility] Comment on above: Performed By: #### C BC #### [facility] [address] [place] [address] Dr. Yaneth Walton MANUAL DIFF REQ NO Normal [facility] Comment on above: Performed By: #### C BC #### [facility] [address] [place] [address] Dr. Yaneth Walton MCH (RBC) [Entitic mass] 32.0 pg Normal 26.7-34.0 [facility] Comment on above: Performed By: #### C BC #### [facility] [address] [place] [address] Dr. Yaneth Walton MCHC (RBC) [Mass/Vol] 33.0 g/dL Normal 29.9-35.2 [facility] Comment on above: Performed By: #### C BC #### [facility] [address] [place] [address] Dr. Yaneth Walton MCV (RBC) [Entitic vol] 97.1 fL Normal 81.0-99.0 [facility] Comment on above: Performed By: #### C BC #### [facility] [address] [place] [address] Dr. Yaneth Walton MONO # 0.4 103/ul Normal 0.3-0.8 [facility] Comment on above: Performed By: #### C BC #### [facility] [address] [place] [address] Dr. Yaneth Walton Monocytes/100 WBC (Bld) 8.4 % Normal 1.7-12.0 [facility] Comment on above: Performed By: #### C BC #### [facility] [address] [place] [address] Dr. Yaneth Walton NEUT # 3.1 103/ul Normal 1.4-6.5 [facility] Comment on above: Performed By: #### C BC #### [facility] [address] [place] [address] Dr. Yaneth Walton Neutrophils/100 WBC (Bld) 67.1 % Normal 43.0-75.0 [facility] Comment on above: Performed By: #### C BC #### [facility] [address] [place] [address] Dr. Yaneth Walton Platelet mean volume (Bld) [Entitic vol] 10.7 fL Normal 9.5-13.5 [facility] Comment on above: Performed By: #### C BC #### [facility] [address] [place] [address] Dr. Yaneth Walton PLT 213 103/ul Normal 150-450 [facility] Comment on above: Performed By: #### C BC #### [facility] [address] [place] [address] Dr. Yaneth Walton RBC 4.15 106/ul Critically low 4.20-5.40 [facility] Comment on above: Performed By: #### C BC #### [facility] [address] [place] [address] Dr. Yaneth Walton WBC 4.7 103/ul Normal 4.0-11.0 [facility] Comment on above: Performed By: #### C BC #### [facility] [address] [place] [address] Dr. Yaneth Walton CREATININEon 06-21-2022 Creatinine [Mass/Vol] 0.82 mg/dL Normal 0.55-1.02 [facility] Comment on above: Performed By: #### C ROMEO #### [facility] [address] [place] [address] Dr. Yaneth Walton EGFR-AF DJIBOUTIAN >60 Normal >=60 [facility] Comment on above: Performed By: #### C ROMEO #### [facility] [address] [place] [address] Dr. Yaneth Walton EGFR-NON AF DJIBOUTIAN >60 Normal >=60 [facility] Comment on above: Performed By: #### C ROMEO #### [facility] [address] [place] [address] Dr. Yaneth Walton SED RATE WESTERGREN 2022 SED RATE 7 mm/hr Normal <=30 [facility] Comment on above: Performed By: #### C ROMEO #### [facility] [address] [place] [address] Dr. Yaneth Walton UA RANDOM W/MICROSCOPICon BACTERIA TRACE Abnormal NONE SEEN [facility] Comment on above: Performed By: #### C ROMEO #### [facility] [address] [place] [address] Dr. Yaneth Walton Bilirubin Ql (U) Negative Normal NEGATIVE [facility] Comment on above: Performed By: #### C ROMEO #### [facility] [address] [place] [address] Dr. Yaneth Walton CAST NONE SEEN Normal NONE SEEN [facility] Comment on above: Performed By: #### C ROMEO #### [facility] [address] [place] [address] Dr. Yaneth Walton Clarity (U) CLEAR Normal CLEAR [facility] Comment on above: Performed By: #### C ROMEO #### [facility] [address] [place] [address] Dr. Yaneth Walton Color (U) LT. YELLOW Normal YELLOW [facility] Comment on above: Performed By: #### C ROMEO #### [facility] [address] [place] [address] Dr. Yaneth Walton Crystals LM Nom (Urine sed) NONE SEEN Normal NONE SEEN [facility] Comment on above: Performed By: #### C ROMEO #### [facility] [address] [place] [address] Dr. Yaneth Walton Epithelial cells LM Ql (Urine sed) RARE Normal NONE SEEN /RARE [facility] Comment on above: Performed By: #### C ROMEO #### [facility] [address] [place] [address] Dr. Yaneth Walton Glucose Ql (U) Negative Normal NEGATIVE [facility] Comment on above: Performed By: #### C ROMEO #### [facility] [address] [place] [address] Dr. Yaneth Walton Hemoglobin Ql (U) Negative Normal NEGATIVE [facility] Comment on above: Performed By: #### C ROMEO #### [facility] [address] [place] [address] Dr. Yaneth Walton Ketones Ql (U) Negative Normal NEGATIVE [facility] Comment on above: Performed By: #### C ROMEO #### [facility] [address] [place] [address] Dr. Yaneth Walton LEUKOCYTES LARGE Abnormal NEGATIVE [facility] Comment on above: Performed By: #### C ROMEO #### [facility] [address] [place] [address] Dr. Yaneth Walton MUCOUS NONE SEEN Normal NONE SEEN [facility] Comment on above: Performed By: #### C ROMEO #### [facility] [address] [place] [address] Dr. Yaneth Walton Nitrite Ql (U) Negative Normal NEGATIVE [facility] Comment on above: Performed By: #### C ROMEO #### [facility] [address] [place] [address] Dr. Yaneth Walton pH (U) 6.0 [pH] Normal 5-9 [facility] Comment on above: Performed By: #### C ROMEO #### [facility] [address] [place] [address] Dr. Yaneth Walton RBC 0-2 Normal 0-2 [facility] Comment on above: Performed By: #### C ROMEO #### [facility] [address] [place] [address] Dr. Yaneth Walton SPEC GRAVITY <=1.005 Abnormal 1.005-<=1. 025 [facility] Comment on above: Performed By: #### C ROMEO #### [facility] [address] [place] [address] Dr. Yaneth Walton UA PROTEIN Negative Normal NEGATIVE/ TRACE [facility] Comment on above: Performed By: #### C ROMEO #### [facility] [address] [place], [place] [address] Dr. Yaneth Walton Urobilinogen Qn (U) 0.2 {Ruth Ann'U}/dL Normal 0.2 - 1. 0 [facility] Comment on above: Performed By: #### C ROMEO #### [facility] [address] [place], [place] [address] Dr. Yaneth Walton WBC 10-20 Abnormal NONE SEEN [facility] Comment on above: Performed By: #### C ROMEO #### [facility] [address] [place], [place] [address] Dr. Yaneth Walton MRI LSPINE WO CONon [...] HEATHER BECKER Date: 2022-02-10 14:50 Normal [facility] XR KNEE [place] 4V or >on 2021 XR KNEE HO 4V or > EXAMINATION: XR KNEE [place] [...] HEATHER BECKER Date: 2022-02-03 17:51 Normal [facility] XR LSPINE MIN 4 VIEWSon XR [...] HEATHER BECKER Date: 2022-02-03 17:54 Normal [facility] C3 and C4 COMPLEMENTon 12-22 Complement C3, Serum 155 mg/dL Normal 82-167 [facility] Comment on above: Performed By: #### C SUITE #### [facility] [address] [place] [address] Dr. Yaneth Walton Complement C4, Serum 35 mg/dL Normal 12-38 [facility] Comment on above: Performed By: #### C SUITE #### [facility] [address] [address] [address] Yaneth Walton CBC AUTO DIFFon 12-21-2021 BASO # 0.1 103/ul Normal 0.0-0.1 [facility] Comment on above: Performed By: #### C BC #### [facility] [address] [address] [address] Yaneth Walton Basophils/100 WBC (Bld) 0.9 % Normal 0.2-2.0 [facility] Comment on above: Performed By: #### C BC #### [facility] [address] [place] [address] Dr. Yaneth Walton EO # 0.1 103/ul Normal 0.0-0.7 [facility] Comment on above: Performed By: #### C BC #### [facility] [address] [place] [address] Dr. Yaneth Walton Eosinophils/100 WBC (Bld) 2.2 % Normal 0.9-7.0 [facility] Comment on above: Performed By: #### C BC #### [facility] [address] [place] [address] Dr. Yaneth Walton Erythrocyte distribution width (RBC) [Ratio] 13.0 % Normal 11.0-15.0 [facility] Comment on above: Performed By: #### C BC #### [facility] [address] [place] [address] Dr. Yaneth Walton Hematocrit (Bld) [Volume fraction] 42.0 % Normal 36.0-48.0 [facility] Comment on above: Performed By: #### C BC #### [facility] [address] [place] [address] Dr. Yaneth Walton Hemoglobin (Bld) [Mass/Vol] 13.4 g/dL Normal 12.0-16.0 [facility] Comment on above: Performed By: #### C BC #### [facility] [address] [place] [address] Dr. Yaneth Walton IG # 0.01 10e3/ul Normal 0.00-0.03 [facility] Comment on above: Performed By: #### C BC #### [facility] [address] [place] [address] Dr. Yaneth Walton IG % 0.2 % Normal 0.0-0.5 [facility] Comment on above: Performed By: #### C BC #### [facility] [address] [place] [address] Dr. Yaneth Walton LYMPH # 1.0 103/ul Critically low 1.2-3.8 [facility] Comment on above: Performed By: #### C BC #### [facility] [address] [place] [address] Dr. Yaneth Walton Lymphocytes/100 WBC (Bld) 18.0 % Critically low 20.5-60.0 [facility] Comment on above: Performed By: #### C BC #### [facility] [address] [place] [address] Dr. Yaneth Walton MANUAL DIFF REQ NO Normal [facility] Comment on above: Performed By: #### C BC #### [facility] [address] [place] [address] Dr. Yaneth Walton MCH (RBC) [Entitic mass] 30.5 pg Normal 26.7-34.0 [facility] Comment on above: Performed By: #### C BC #### [facility] [address] [place] [address] Dr. Yaneth Walton MCHC (RBC) [Mass/Vol] 31.9 g/dL Normal 29.9-35.2 [facility] Comment on above: Performed By: #### C BC #### [facility] [address] [place] [address] Dr. Yaneth Walton MCV (RBC) [Entitic vol] 95.7 fL Normal 81.0-99.0 [facility] Comment on above: Performed By: #### C BC #### [facility] [address] [place] [address] Dr. Yaneth Walton MONO # 0.5 103/ul Normal 0.3-0.8 [facility] Comment on above: Performed By: #### C BC #### [facility] [address] [place] [address] Dr. Yaneth Walton Monocytes/100 WBC (Bld) 8.7 % Normal 1.7-12.0 [facility] Comment on above: Performed By: #### C BC #### [facility] [address] [place] [address] Dr. Yaneth Walton NEUT # 3.8 103/ul Normal 1.4-6.5 [facility] Comment on above: Performed By: #### C BC #### [facility] [address] [place] [address] Dr. Yaneth Walton Neutrophils/100 WBC (Bld) 70.0 % Normal 43.0-75.0 [facility] Comment on above: Performed By: #### C BC #### [facility] [address] [place] [address] Dr. Yaneth Walton Platelet mean volume (Bld) [Entitic vol] 10.8 fL Normal 9.5-13.5 [facility] Comment on above: Performed By: #### C BC #### [facility] [address] [place] [address] Dr. Yaneth Walton PLT 213 103/ul Normal 150-450 [facility] Comment on above: Performed By: #### C BC #### [facility] [address] [place] [address] Dr. Yaneth Walton RBC 4.39 106/ul Normal 4.20-5.40 [facility] Comment on above: Performed By: #### C BC #### [facility] [address] [place] [address] Dr. Ynaeth Walton WBC 5.4 103/ul Normal 4.0-11.0 [facility] Comment on above: Performed By: #### C BC #### [facility] [address] [place] [address] Dr. Yaneth Walton CREATININEon 12-21-2021 Creatinine [Mass/Vol] 0.87 mg/dL Normal 0.55-1.02 [facility] Comment on above: Performed By: #### C ROMEO #### [facility] [address] [place] [address] Dr. Yaneth Walton EGFR-AF DJIBOUTIAN >60 Normal >=60 [facility] Comment on above: Performed By: #### C ROMEO #### [facility] [address] [place] [address] Dr. Yaneth Walton EGFR-NON AF DJIBOUTIAN >60 Normal >=60 [facility] Comment on above: Performed By: #### C ROMEO #### [facility] [address] [place] [address] Dr. Yaneth Walton [facility] SED RATE 10 mm/hr Normal <=30 [facility] Comment on above: Performed By: #### S EDR #### [facility] [address] [place] [address] Dr. Yaneth Walton UA RANDOM W/MICROSCOPICon BACTERIA NONE SEEN Normal NONE SEEN [facility] Comment on above: Performed By: #### C ROMEO #### [facility] [address] [place] [address] Dr. Yaneth Walton Bilirubin Ql (U) Negative Normal NEGATIVE [facility] Comment on above: Performed By: #### C ROMEO #### [facility] [address] [place] [address] Dr. Yaneth Walton CAST NONE SEEN Normal NONE SEEN [facility] Comment on above: Performed By: #### C ROMEO #### [facility] [address] [place] [address] Dr. Yaneth Walton Clarity (U) CLEAR Normal CLEAR [facility] Comment on above: Performed By: #### C ROMEO #### [facility] [address] [place] [address] Dr. Yaneth Walton Color (U) LT. YELLOW Normal YELLOW [facility] Comment on above: Performed By: #### C ROMEO #### [facility] [address] [place] [address] Dr. Yaneth Walton Crystals LM Nom (Urine sed) NONE SEEN Normal NONE SEEN [facility] Comment on above: Performed By: #### C ROMEO #### [facility] [address] [place] [address] Dr. Yaneth Walton Epithelial cells LM Ql (Urine sed) FEW Abnormal NONE SEEN /RARE [facility] Comment on above: Performed By: #### C ROMEO #### [facility] [address] [place] [address] Dr. Yaneth Walton Glucose Ql (U) Negative Normal NEGATIVE [facility] Comment on above: Performed By: #### C ROMEO #### [facility] [address] [place] [address] Dr. Yaneth Walton Hemoglobin Ql (U) Negative Normal NEGATIVE [facility] Comment on above: Performed By: #### C ROMEO #### [facility] [address] [place] [address] Dr. Yaneth Walton Ketones Ql (U) Negative Normal NEGATIVE [facility] Comment on above: Performed By: #### C ROMEO #### [facility] [address] [place] [address] Dr. Yaneth Walton LEUKOCYTES TRACE Abnormal NEGATIVE [facility] Comment on above: Performed By: #### C ROMEO #### [facility] [address] [place] [address] Dr. Yaneth Walton MUCOUS NONE SEEN Normal NONE SEEN [facility] Comment on above: Performed By: #### C ROMEO #### [facility] [address] [place] [address] Dr. Yaneth Walton Nitrite Ql (U) Negative Normal NEGATIVE [facility] Comment on above: Performed By: #### C ROMEO #### [facility] [address] [place] [address] Dr. Yaneth Walton pH (U) 6.0 [pH] Normal 5-9 [facility] Comment on above: Performed By: #### C ROMEO #### [facility] [address] [place] [address] Dr. Yaneth Walton RBC NONE SEEN Abnormal 0-2 [facility] Comment on above: Performed By: #### C ROMEO #### [facility] [address] [place] [address] Dr. Yaneth Walton SPEC GRAVITY 1.010 Normal 1.005-<=1. 025 [facility] Comment on above: Performed By: #### C ROMEO #### [facility] [address] [place] [address] Dr. Yaneth Walton UA PROTEIN Negative Normal NEGATIVE/ TRACE [facility] Comment on above: Performed By: #### C ROMEO #### [facility] [address] [place] [address] Dr. Yaneth Walton Urobilinogen Qn (U) 0.2 {Ruth Ann'U}/dL Normal 0.2 - 1. 0 [facility] Comment on above: Performed By: #### C ROMEO #### [facility] [address] [place] [address] Dr. Yaneth Walton WBC 0-2 Abnormal NONE SEEN [facility] Comment on above: Performed By: #### C ROMEO #### [facility] [address] [place] [address] Dr. Yaneth Walton PTH INTACTon 08-20-2021 PTH, Intact 44 pg/mL Normal 15-65 [facility] Comment on above: Performed By: #### B ETA2M #### [facility] [address] [place] [address] Dr. Yaneth Walton FREE T3on 08-19-2021 FREE T3 2.44 pg/mlL Normal 2.18-3.98 [facility] Comment on above: Performed By: #### B ETA2M #### [facility] [address] [place] [address] Dr. Yaneth Walton FREE T4on 08-19-2021 Free T4 [Mass/Vol] 1.11 ng/dL Normal 0.76-1.46 [facility] Comment on above: Performed By: #### B ETA2M #### [facility] [address] [place] [address] Dr. Yaneth Walton LIPID PROFILEon 08-19-2021 CHOL-HDL RATIO NORM SEE BELOW Normal [facility] Comment on above: Result Comment: 3.3 - 4.4 LOW RISK 4.4 - 7.1 AVERAGE RISK 7.1 - 11.0 MODERATE RISK >11.0 HIGH RISK Performed By: #### C ROMEO #### [facility] [address] [address] [address] Yaneth Walton Cholesterol [Mass/Vol] 180 mg/dL Normal <=200 [facility] Comment on above: Performed By: #### C ROMEO #### [facility] [address] [address] [address] Yaneth Walton Cholesterol in HDL [Mass/Vol] 76 mg/dL Critically high 40-60 [facility] Comment on above: Performed By: #### C ROMEO #### [facility] [address] [address] [address] Yaneth Walton Cholesterol in LDL [Mass/Vol] 92.6 mg/dL Normal [facility] Comment on above: Performed By: #### C ROMEO #### [facility] [address] [place] [address] Dr. Yaneth Walton Cholesterol.total/Nydia sterol in HDL [Mass ratio] 2.4 {ratio} Normal [facility] Comment on above: Performed By: #### C ROMEO #### [facility] [facility] [address] [place] [address] Dr. Yaneth Walton HDL NORMAL > or = 60 mg/dl - LO W CARDIOVASCULAR RISK <40 mg/dl - HIGH CARDIOVASCULAR RISK Normal [facility] Comment on above: Performed By: #### C ROMEO #### [facility] [address] [place] [address] Dr. Yaneth Walton LDL CALC NORMAL SEE BELOW Normal [facility] Comment on above: Result Comment: <100 mg/dl OPTIMAL 100 - 129 mg/dl NEAR OR ABOVE OPTIMAL 130 - 159 mg/dl BORDERLINE HIGH 160 - 189 mg/dl HIGH >190 mg/dl VERY HIGH Performed By: #### C ROMEO #### [facility] [address] [place] [address] Dr. Yaneth Walton Triglyceride [Mass/Vol] 57 mg/dL Normal <=150 T [facility] Comment on above: Performed By: #### C ROMEO #### [facility] [address] [place] [address] Dr. Yaneth Walton VLDL CALC 11.4 mg/dL Normal [facility] Comment on above: Performed By: #### C ROMEO #### [facility] [address] [address] [address] Yaneth Walton MG MAMM SCREEN 3D OH CADon 08-19-2021 MG MAMM SCREEN 3D OH CAD Patient: SINA PEREZ Exam Date: 08/19/2021 : 1950 Gender:F Ordering : DR GER KENNEDY . Admission #: [id number] Family : Order #: [id number] CLICK HERE TO VIEW EXAM RADIOLOGY REPORT [...] colon cancer at age 71. LOCATION: [facility] BREAST COMPOSITION: Heterogeneously dense,which may obscure [...] Acosta M.D. on 08/19/2021 at 12:07 Normal [facility] TSHon 08-19-2021 TSH 0.181 uIU/mL Critically low 0.358-3.74 0 [facility] Comment on above: Performed By: #### B ETA2M #### [facility] [address] [place], [place] [address] Dr. Yaneth Walton VITAMIN D 25 OHon 08-19-2021 VIT D 25-OH 51.8 ng/mL Normal [facility] Comment on above: Performed By: #### B ETA2M #### [facility] [address] [place], [place] [address] Dr. Yaneth Walton VIT D RANGES SEE BELOW Normal [facility] Comment on above: Result Comment: <20 ng/mL Vit D deficient 20 - <30 ng/mL Vit D insufficient 30 - 100 ng/mL Vit D sufficient >100 ng/mL Potential Toxicity Performed By: #### B ETA2M #### [facility] [address] [place], [place] [address] Dr. Yaneth Walton [facility] Surgical Pathology Depar tmenton 08-04-2021 [facility] Surgical Pathology Department Name SINA PEREZ Pathologist: TONYA CARRERA DMD Date of Procedure: 08/04/2021 Date Received: 08/08/2021 Date Reported 08/12/2021 Submitting Physician: LIZETH LAYTON DDS Location: [facility] Other External # FINAL DIAGNOSIS A. ATTACHED GINGIVA OF TEETH #[id number], EXCISION: -- MILD EPITHELIAL DYSPLASIA (MULTIPLE LEVELS EXAMINED) ICD-10/CPT: K13.21/28399 Electronically Signed Out By TONYA CARRERA DMD/SOPHYS By the signature on this report, the individual or group listed as making the Final Interpretation/Diagnosis certifies that they have reviewed this case. Diagnostic interpretation performed at [facility] [address] [facility] [address] Microscopic Description: The sections show a fragment [...] entirely submitted in one cassette. [facility] rcc/08/08/2021 [facility] Department of Pathology [address] [place] [address] Normal [facility] Comment on above: Performed By: #### U HCS #### [facility] Surgical Pathology Department [address] [facility] [address] IMMUNOFIXATION (MG), SERUMo n 07-11-2021 IMMUNOFIXATION RESULT Comment Abnormal [facility] Comment on above: Result Comment: Immu nofixation shows IgG monoclonal protein with lambda light chain specificity. Performed By: #### C ROMEO #### [facility] [address] [address] [address] Yaneth Walton Immunoglobulin A, Qn, Serum 113 mg/dL Normal 87-352 [facility] Comment on above: Performed By: #### C ROMEO #### [facility] [address] [address] [address] Yaneth Walton Immunoglobulin G, Qn, Serum 1031 mg/dL Normal 586-1602 [facility] Comment on above: Performed By: #### C ROMEO #### [facility] [address] [address] [address] Yaneth Walton Immunoglobulin M, Qn, Serum 42 mg/dL Normal 26-217 [facility] Comment on above: Performed By: #### C ROMEO #### [facility] [address] [address] [address] Yaneth Walton BETA-2 MICROGLOBINon 022 Beta-2 Microglobulin, Serum 2.2 mg/L Normal 0.6-2.4 [facility] Comment on above: Result Comment: [facility] [employer] 2000 Immunochemiluminometric assay (ICMA) . Values obtained with different assay methods or kits cannot be used interchangeably. Results cannot be interpreted as absolute evidence of the presence or absence of malignant disease. Performed By: #### B ETA2M #### [facility] [address] [address] [address] Yaneth Walton FREE LIGHT CHAINS PLUS RATIO on 07-09-2021 Free [place] Lt Chains,S 34.7 mg/L Critically high 3.3-19.4 [facility] Comment on above: Performed By: #### F VALENTINLIT #### [facility] [address] [place] [address] Dr. Yaneth Walton Free Lambda Lt Chains,S 50.1 mg/L Critically high 5.7-26. 3 [facility] Comment on above: Performed By: #### F VALENTINLIT #### [facility] [address] [place] [address] Dr. Yaneth Walton [place]/Lambda Ratio, S 0.69 Normal 0.26-1.65 [facility] Comment on above: Performed By: #### F KELLYT #### [facility] [address] [place] [address] Dr. Yaneth Walton IMMUNOGLOBULINS IGA/IGM/IGG QUANTITATIVEon 07-08-2021 Immunoglobulin A, Qn, Serum 111 mg/dL Normal 87-352 [facility] Comment on above: Performed By: #### I MMUNGL #### [facility] [address] [place] [address] Dr. Yaneth Walton Immunoglobulin G, Qn, Serum 1037 mg/dL Normal 586-1602 [facility] Comment on above: Performed By: #### I MMUNGL #### [facility] [address] [place] [address] Dr. Yaneth Walton Immunoglobulin M, Qn, Serum 44 mg/dL Normal 26-217 [facility] Comment on above: Performed By: #### I MMUNGL #### [facility] [address] [place] [address] Dr. Yaneth Walton CBC AUTO DIFFon 07-07-2021 BASO # 0.0 103/ul Normal 0.0-0.1 [facility] Comment on above: Performed By: #### C BC #### [facility] [address] [place] [address] Dr. Yaneth Walton Basophils/100 WBC (Bld) 0.7 % Normal 0.2-2.0 [facility] Comment on above: Performed By: #### C BC #### [facility] [address] [place] [address] Dr. Yaneth Walton EO # 0.2 103/ul Normal 0.0-0.7 [facility] Comment on above: Performed By: #### C BC #### [facility] [address] [place] [address] Dr. Yaneth Walton Eosinophils/100 WBC (Bld) 2.9 % Normal 0.9-7.0 [facility] Comment on above: Performed By: #### C BC #### [facility] [address] [place] [address] Dr. Yaneth Walton Erythrocyte distribution width (RBC) [Ratio] 12.9 % Normal 11.0-15.0 [facility] Comment on above: Performed By: #### C BC #### [facility] [address] [place] [address] Dr. Yaneth Walton Hematocrit (Bld) [Volume fraction] 43.1 % Normal 36.0-48.0 [facility] Comment on above: Performed By: #### C BC #### [facility] [address] [place] [address] Dr. Yaneth Walton Hemoglobin (Bld) [Mass/Vol] 13.8 g/dL Normal 12.0-16.0 [facility] Comment on above: Performed By: #### C BC #### [facility] [address] [place] [address] Dr. Yaneth Wlaton IG # 0.02 10e3/ul Normal 0.00-0.03 [facility] Comment on above: Performed By: #### C BC #### [facility] [address] [place] [address] Dr. Yaneth Walton IG % 0.4 % Normal 0.0-0.5 [facility] Comment on above: Performed By: #### C BC #### [facility] [address] [place] [address] Dr. Yaneth Walton LYMPH # 1.3 103/ul Normal 1.2-3.8 [facility] Comment on above: Performed By: #### C BC #### [facility] [address] [place] [address] Dr. Yaneth Walton Lymphocytes/100 WBC (Bld) 22.9 % Normal 20.5-60.0 [facility] Comment on above: Performed By: #### C BC #### [facility] [address] [place] [address] Dr. Yaneth Walton MANUAL DIFF REQ NO Normal [facility] Comment on above: Performed By: #### C BC #### [facility] [address] [place] [address] Dr. Yaneth Walton MCH (RBC) [Entitic mass] 30.3 pg Normal 26.7-34.0 [facility] Comment on above: Performed By: #### C BC #### [facility] [address] [place] [address] Dr. Yaneth Walton MCHC (RBC) [Mass/Vol] 32.0 g/dL Normal 29.9-35.2 [facility] Comment on above: Performed By: #### C BC #### [facility] [address] [place] [address] Dr. Yaneth Walton MCV (RBC) [Entitic vol] 94.5 fL Normal 81.0-99.0 [facility] Comment on above: Performed By: #### C BC #### [facility] [address] [place] [address] Dr. Yaneth Walton MONO # 0.5 103/ul Normal 0.3-0.8 [facility] Comment on above: Performed By: #### C BC #### [facility] [address] [place] [address] Dr. Yaneth Walton Monocytes/100 WBC (Bld) 8.7 % Normal 1.7-12.0 [facility] Comment on above: Performed By: #### C BC #### [facility] [address] [place] [address] Dr. Yaneth Walton NEUT # 3.5 103/ul Normal 1.4-6.5 [facility] Comment on above: Performed By: #### C BC #### [facility] [address] [place] [address] Dr. Yaneth Walton Neutrophils/100 WBC (Bld) 64.4 % Normal 43.0-75.0 [facility] Comment on above: Performed By: #### C BC #### [facility] [address] [place] [address] Dr. Yaneth Walton Platelet mean volume (Bld) [Entitic vol] 11.0 fL Normal 9.5-13.5 [facility] Comment on above: Performed By: #### C BC #### [facility] [address] [place] [address] Dr. Yaneth Walton PLT 206 103/ul Normal 150-450 [facility] Comment on above: Performed By: #### C BC #### [facility] [address] [place] [address] Dr. Yaneth Walton RBC 4.56 106/ul Normal 4.20-5.40 [facility] Comment on above: Performed By: #### C BC #### [facility] [address] [place] [address] Dr. Yaneth Walton WBC 5.5 103/ul Normal 4.0-11.0 [facility] Comment on above: Performed By: #### C BC #### [facility] [address] [place] [address] Dr. Yaneth Walton PROF 14(COMP METB)on 022 Albumin [Mass/Vol] 3.7 g/dL Normal 3.4-5.0 [facility] Comment on above: Performed By: #### B ETA2M #### [facility] [address] [place] [address] Dr. Yaneth Walton Albumin/Globulin [Mass ratio] 1.0 {ratio} Normal [facility] Comment on above: Performed By: #### B ETA2M #### [facility] [address] [place] [address] Dr. Yaneth Walton ALP [Catalytic activity/Vol] 103 U/L Normal 46-116 [facility] Comment on above: Performed By: #### B ETA2M #### [facility] [address] [place] [address] Dr. Yaneth Walton ALT [Catalytic activity/Vol] 28 U/L Normal 14-59 [facility] Comment on above: Performed By: #### B ETA2M #### [facility] [address] [place] [address] Dr. Yaneth Walton Anion gap [Moles/Vol] 12.0 mmol/L Normal [facility] Comment on above: Performed By: #### B ETA2M #### [facility] [address] [address] [address] Yaneth Walton AST [Catalytic activity/Vol] 26 U/L Normal 15-37 [facility] Comment on above: Performed By: #### B ETA2M #### [facility] [address] [place] [address] Dr. Yaneth Walton Bilirubin [Mass/Vol] 0.7 mg/dL Normal 0.2-1.0 [facility] Comment on above: Performed By: #### B ETA2M #### [facility] [address] [place] [address] Dr. Yaneth Walton Calcium [Mass/Vol] 8.6 mg/dL Normal 8.5-10.1 [facility] Comment on above: Performed By: #### B ETA2M #### [facility] [address] [place] [address] Dr. Yaneth Walton Chloride [Moles/Vol] 103 mmol/L Normal 98-107 [facility] Comment on above: Performed By: #### B ETA2M #### [facility] [address] [place] [address] Dr. Yaneth Walton CO2 [Moles/Vol] 28.7 mmol/L Normal 21.0-32.0 [facility] Comment on above: Performed By: #### B ETA2M #### [facility] [address] [place] [address] Dr. Yaneth Walton Creatinine [Mass/Vol] 0.84 mg/dL Normal 0.55-1.02 [facility] Comment on above: Performed By: #### B ETA2M #### [facility] [address] [place] [address] Dr. Yaneth Walton EGFR-AF DJIBOUTIAN >60 Normal >=60 [facility] Comment on above: Performed By: #### B ETA2M #### [facility] [address] [place] [address] Dr. Yaneth Walton EGFR-NON AF DJIBOUTIAN >60 Normal >=60 [facility] Comment on above: Performed By: #### B ETA2M #### [facility] [address] [place] [address] Dr. Yaneth Walton Globulin (S) [Mass/Vol] 3.7 g/dL Normal T [facility] Comment on above: Performed By: #### B ETA2M #### [facility] [address] [place] [address] Dr. Yaneth Walton Glucose [Mass/Vol] 90 mg/dL Normal 74-106 [facility] Comment on above: Performed By: #### B ETA2M #### [facility] [address] [place] [address] Dr. Yaneth Walton Potassium [Moles/Vol] 3.7 mmol/L Normal 3.5-5.1 [facility] Comment on above: Performed By: #### B ETA2M #### [facility] [address] [place] [address] Dr. Yaneth Walton Protein [Mass/Vol] 7.4 g/dL Normal 6.1-8.2 [facility] Comment on above: Performed By: #### B ETA2M #### [facility] [address] [place] [address] Dr. Yaneth Walton Sodium [Moles/Vol] 140 mmol/L Normal 136-145 [facility] Comment on above: Performed By: #### B ETA2M #### [facility] [address] [place] [address] Dr. Yaneth Walton Urea nitrogen [Mass/Vol] 22.0 mg/dL Critically high 7.0-18.0 [facility] Comment on above: Performed By: #### B ETA2M #### [facility] [address] [place] [address] Dr. Yaneth Walton Urea nitrogen/Creatinine [Mass ratio] 26.2 mg/mg Normal [facility] Comment on above: Performed By: #### B ETA2M #### [facility] [address] [address] [address] Yaneth Walton Vital Signs Date Time Vital Sign Value Performing Clinician Facility 07-31-2024 09:51-0400 Body height 149.9 cm Kamala Gold MD Work Phone: [facility] 07-31-2024 09:51-0400 Body mass index (BMI) [Ratio] 33.12 kg/m2 Kamala Gold MD Work Phone: [facility] 07-31-2024 09:51-0400 Body weight 74.39 kg Kamala Gold MD Work Phone: [facility] 07-31-2024 09:51-0400 Heart rate 73 /min Kamala Gold MD Work Phone: [facility] 07-31-2024 09:51-0400 Respiratory rate 16 /min Kamala Gold MD Work Phone: [facility] 07-31-2024 09:51-0400 SaO2% (BldA) [Mass fraction] 94 % Kamala Gold MD Work Phone: [facility] 05-07-2024 11:00-0500 Body mass index (BMI) [Ratio] 34.07 kg/m2 Felicia Salazar [employer] Work Phone: [facility] 05-07-2024 11:00-0500 Body weight 73.94 kg Felicia Salazar [employer] Work Phone: [facility] 05-07-2024 11:00-0500 Diastolic blood pressure 86 mm[Hg] Felicia Sal[employer] Work Phone: [facility] 05-07-2024 11:00-0500 Heart rate 75 /min Felicia Salazar [employer] Work Phone: [facility] 05-07-2024 11:00-0500 SaO2% (BldA) [Mass fraction] 97 % Felicia Salazar [employer] Work Phone: [facility] 05-07-2024 11:00-0500 Systolic blood pressure 142 mm[Hg] Felicia Sal[employer] Work Phone: [facility] 08-29-2023 13:53-0400 Body height 149.86 cm MD Jean Hair Work Phone: [facility] 08-29-2023 13:53-0400 Body mass index (BMI) [Ratio] 31.7 kg/m2 MD Jean Hair Work Phone: [facility] 08-29-2023 13:53-0400 Body temperature 97 [degF] MD Jean Hair Work Phone: [facility] 08-29-2023 13:53-0400 Body weight 71.21 kg MD Jean Hair Work Phone: [facility] 08-29-2023 13:53-0400 Diastolic blood pressure 77 mm[Hg] MD Jean Hair Work Phone: [facility] 08-29-2023 13:53-0400 Heart rate 71 /min MD Jean Hair Work Phone: [facility] 08-29-2023 13:53-0400 Respiratory rate 16 /min MD Jean Hair Work Phone: [facility] 08-29-2023 13:53-0400 SaO2% (BldA) [Mass fraction] 97 % MD Jean Hair Work Phone: [facility] 08-29-2023 13:53-0400 Systolic blood pressure 148 mm[Hg] MD Jean Hair Work Phone: [facility] 08-08-2023 10:37-0400 Diastolic blood pressure 86 mm[Hg] MD Jean Hair Work Phone: [facility] 08-08-2023 10:37-0400 Heart rate 61 /min MD Jean Hair Work Phone: [facility] 08-08-2023 10:37-0400 Respiratory rate 16 /min MD Jean Hair Work Phone: [facility] 08-08-2023 10:37-0400 SaO2% (BldA) [Mass fraction] 99 % MD Jean Hair Work Phone: [facility] 08-08-2023 10:37-0400 Systolic blood pressure 152 mm[Hg] MD Jean Hair Work Phone: [facility] 08-08-2023 09:10-0400 Body height 144.78 cm MD Jean Hair Work Phone: [facility] 08-08-2023 09:10-0400 Body weight 70.3 kg MD Jean Hair Work Phone: [facility] 07-25-2023 09:57-0400 Body height 144.78 cm MD Jean Hair Work Phone: [facility] 07-25-2023 09:57-0400 Body mass index (BMI) [Ratio] 34.4 kg/m2 MD Jean Hair Work Phone: [facility] 07-25-2023 09:57-0400 Body temperature 97.9 [degF] MD Jean Hair Work Phone: [facility] 07-25-2023 09:57-0400 Body weight 72.12 kg MD Jean Hair Work Phone: [facility] 07-25-2023 09:57-0400 Diastolic blood pressure 92 mm[Hg] MD Jean Hair Work Phone: [facility] 07-25-2023 09:57-0400 Heart rate 69 /min MD Jean Hair Work Phone: [facility] 07-25-2023 09:57-0400 Respiratory rate 16 /min MD Jean Hair Work Phone: [facility] 07-25-2023 09:57-0400 SaO2% (BldA) [Mass fraction] 98 % MD Jean Hair Work Phone: [facility] 07-25-2023 09:57-0400 Systolic blood pressure 178 mm[Hg] MD Jean Hair Work Phone: [facility] Encounters Encounter Date Encounter Type Care Provider Facility Start: 12-25-2024 ambulatory MD Jean Hair Facil ity:[facility] Start: 07-31-2024 End: 07-31-2024 Bamboo flowsheet Kamala Gold MD Work Phone: [facility] Start: 07-31-2024 End: 07-31-2024 Bamboo flowsheet Kamala Gold MD Work Phone: [facility] Start: 07-31-2024 End: 07-31-2024 Office outpatient new 60 minutes Kamala Gold MD Work Phone: [facility] Comment on above: History of parathyro id surgery (Primary Dx); H/O partial thyroidectomy (CMS/HCC); Vitamin D deficiency Start: 07-31-2024 End: 07-31-2024 ambulatory KAMALA GOLD Not Available Start: 07-21-2024 End: 07-23-2024 ambulatory Jean Hair Facility: [facility] Start: 07-01-2024 ambulatory Jean Hair Facility :[id number] Start: 06-30-2024 End: 06-30-2024 ambulatory MD Jean Hair Facility:[facility] Start: 05-07-2024 End: 05-07-2024 Bamboo flowsheet Felicia Salazar [employer] Work Phone: [facility] Start: 05-07-2024 End: 05-07-2024 Bamboo flowsheet Felicia Salazar [employer] Work Phone: [facility] Start: 05-07-2024 End: 05-07-2024 Office outpatient visit 15 minutes Felicia Salazar [employer] Work Phone: [facility] Comment on above: Lumbar radiculopathy (Primary Dx); Degeneration of intervertebral disc of lumbar region, unspecified whether pain present; Gait instability; Sjogren's syndrome, with unspecified organ involvement (HCC) (CMS/HCC); Numbness of left hand Start: 05-07-2024 End: 05-07-2024 ambulatory FELICIA SALAZAR Not Available Start: 02-06-2024 End: 02-08-2024 External Result Encounter Tatiana Douglas MD Work Phone: [facility] External Department Unsolicited Start: 02-06-2024 End: 02-08-2024 External Result Encounter Tatiana Douglas MD Work Phone: [facility] External Department Unsolicited Start: 02-06-2024 ambulatory Tatiana Douglas Facility:[facility] Start: 12-31-2023 End: 12-31-2023 Lab Drop off Jean Hair [facility] Start: 12-31-2023 End: 12-31-2023 ambulatory Jean Hair Facility[place] Start: 12-27-2023 End: 12-27-2023 ambulatory MD Jean Hair Facility:[facility] Start: 09-19-2023 End: 09-19-2023 ambulatory FELICIA SALAZAR Not Available Start: 08-29-2023 End: 08-29-2023 ambulatory MD Jean Hair Work Phone: [facility] Work Phone: Start: 08-29-2023 End: 08-29-2023 Patient encounter procedure MD Jean Hair [facility] Work Phone: Start: 08-29-2023 Registered Recurring MD Jean Hair Work Phone: [facility] Work Phone: Start: 08-09-2023 End: 08-09-2023 ambulatory MD Jean Hair Facility:[facility] Start: 08-08-2023 End: 08-08-2023 Admission to same day surgery center MD Jean Hair Work Phone: [facility] [place] Work Phone: Start: 08-08-2023 End: 08-08-2023 ambulatory MD Jean Hair Work Phone: [facility] Work Phone: Start: 07-25-2023 End: 07-25-2023 ambulatory MD Jean Hair Work Phone: [facility] Work Phone: Start: 07-25-2023 End: 07-25-2023 Patient encounter procedure MD Jean Hair Work Phone: [facility] Work Phone: Start: 07-25-2023 Registered Recurring MD Jean Hair Work Phone: [facility] Work Phone: Start: 01-29-2023 End: 01-30-2023 ambulatory Alice Ryan MD Facility:[facility] Start: 12-25-2022 End: 12-26-2022 ambulatory Alice Ryan MD Facility: [facility] Start: 11-27-2022 End: 11-28-2022 ambulatory Alice Ryan MD Facility: [facility] Start: 11-13-2022 End: 11-14-2022 ambulatory Alice Ryan MD Facility:[facility] Start: 06-21-2022 End: 06-22-[address] GER [...] Douglas MD Work Phone: Start: 02-06-2024 Comprehensive metabo lic panel Tatiana Douglas MD Work Phone: Start: 02-06-2024 PROTEIN ELECTRO, RAN DOM URINE Tatiana Douglas MD Work Phone: Start: 08-22-2023 Radiologic examinati on, osseous survey, complete MD Jean Hair Work Phone: Start: 08-17-2023 Dual energy X-ray absorptiometry MD Jean Hair Work Phone: Start: 08-13-2023 Bone marrow sampling Sa keon Hair Start: 08-08-2023 Bone marrow sampling MD Jean Hair Work Phone: Biopsy of breast Jean Hair Comment on above: X2 Biopsy of thyroid Jeanjamar ray Comment on above: X2 Bone graft Jean Hair Comment on above: rt hip to right wris t Bone marrow sampling Jean Hair Comment on above: 2016 Cataract (disorder) Jean Rowell oss Comment on above: left eye Colonoscopy Jean Hair Comment on above: 2019 Destructive procedure Jean Hair H/O: surgery History of parathyroid surgery Kamala Gold MD Work Phone: Internal fixation of fracture Jean Hair Comment on above: right wrist Malignant neoplasm o f skin (disorder) Jean Hair Comment on above: basal cell excised l eft eyelid Mohs surgery Jean Hair Comment on above: facial/ left cheek, September 2022, Dr. Palumbo Parathyroidectomy Jean ray Comment on above: 2018 Repair of tendon Jean Hair Comment on above: right thumb then rem oval of plate and screws right wrist Total abdominal hysterectomy with bilateral salpingo-oophorectomy Jean Hair Plan of Treatment Date Care Activity Detail Author Start: 12-25-2024 ambulatory [facility] Start: 07-31-2024 End: 07-31-2025 25-hydroxyvitamin D3 [Mass/volume] in Serum or Plasma Vitamin D 25 hydroxy Total Lab Routine History of parathyroid surgery Vitamin D deficiency Expected: 07/31/2024 (Approximate), Expires: 07/31/2025 [facility] Comment on above: Expected: 07/31/2024 (Approximate), Expi res: 07/31/2025 Start: 07-31-2024 End: 07-31-2025 Parathyrin.intact [Mass/volume] in Serum or Plasma PTH, intact Lab Routine History of parathyroid surgery Expected: 07/31/2024 (Approximate), Expires: 07/31/2025 [facility] Comment on above: Expected: 07/31/2024 (Approximate), Expi res: 07/31/2025 Start: 07-31-2024 End: 07-31-2025 Renal function panel Renal function panel Lab Routine History of parathyroid surgery Expected: 07/31/2024 (Approximate), Expires: 07/31/2025 [facility] Comment on above: Expected: 07/31/2024 (Approximate), Expi res: 07/31/2025 Start: 07-31-2024 End: 07-31-2025 Thyrotropin [Units/volume] in Serum or Plasma TSH Lab Routine H/O partial thyroidectomy ([facility]) Expected: 07/31/2024 (Approximate), Expires: 07/31/2025 [facility] Comment on above: Expected: 07/31/2024 (Approximate), Expi res: 07/31/2025 Start: 07-31-2024 End: 07-31-2025 Thyroxine (T4) free [Mass/volume] in Serum or Plasma T4, free Lab Routine H/O partial thyroidectomy ([facility]/HCC) Expected: 07/31/2024 (Approximate), Expires: 07/31/2025 [facility] Comment on above: Expected: 07/31/2024 (Approximate), Expi res: 07/31/2025 Start: 07-31-2024 End: 07-31-2025 Triiodothyronine (T3) Free [Mass/volume] in Serum or Plasma T3, free Lab Routine H/O partial thyroidectomy ([facility]/HCC) Expected: 07/31/2024 (Approximate), Expires: 07/31/2025 [facility] Work Phone: Comment on above: Expected: 07/31/2024 (Approximate), Expi res: 07/31/2025 Start: 07-31-2024 End: 07-31-2024 Patient encounter procedure [facility] Comment on above: Arrived Start: 05-07-2024 End: 05-07-2024 Patient encounter procedure [facility] Comment on above: Arrived Start: 08-08-2023 End: 08-08-2023 [facility] Start: 08-08-2023 Bone marrow sampling [facility] Start: 1991 Screening for malignant neoplasm of breast Mammogram [facility] Start: 1950 Screening for malignant neoplasm of colon [facility] [id number] [Mass/volume] in Serum or Plasma [facility] [id number] [Mass/volume] in Serum or Plasma [facility] Bone marrow sampling [facility] Ceruloplasmin [Mass/volume] in Serum or Plasma [facility] Comprehensive metabo lic 2000 panel - Serum or Plasma [facility] Copper measurement [facility] DXA Skeletal system. axial Views for bone density [facility] FREE K+L LT CHAINS, QN, S FREE K +L LT CHAINS, QN, S Lab Routine 02/06/2024 9:15 AM EST [facility] Work Phone: Patient Education [facility] Bone Marrow Aspiration or Biopsy Know your Meds [facility] Work Phone: [facility] Immunizations Immunization Date Immunization Notes Care Provider Kimmie ledbetter 12-14-2023 influenza virus vacc ine, unspecified formulation Jean Hair [facility] 12-13-2021 SARS-CoV-2 (COVID-19 ) [id number] Jean Hair [facility] Comment on above: Result Comment: 2022: [id number] 12-05-2021 influenza virus vacc ine, unspecified formulation Jean Hair [facility] 08-22-2021 SARS-CoV-2 (COVID-19 ) mRNA-1273 vaccine Jean Hair [facility] Comment on above: Result Comment: 2022: TPV70 01-03-2021 SARS-CoV-2 (COVID-19 ) mRNA-1273 vaccine Jean Hair [facility] Comment on above: Result Comment: 2022: TPV65 05-11-2020 SARS-CoV-2 (COVID-19 ) mRNA-1273 vaccine Jean Hair [facility] 04-14-2020 SARS-CoV-2 (COVID-19 ) mRNA-1273 vaccine Jean Hair [facility] 12-03-2019 pneumococcal polysaccharide vaccine, 23 valent Jean Hair [facility] 11-21-2018 pneumococcal conjuga te vaccine, 13 valent Jean Hair [facility] 04-27-2016 influenza virus vacc ine, unspecified formulation Jean Hair [facility] 12-04-2014 influenza virus vacc ine, unspecified formulation Jean Hair [facility] Payers Date Payer Category Payer Private Health Insurance [employer] [id number] 2023 Self-pay [id number] 2023 Unknown [id number] 2022 Unknown 2016 Medicare 1959 Medicare [id number] 1959 Unknown [id number] 1951 Unknown [id number] 2.16.840.1.459952.3.579. 2.593 1951 Unknown [id number] 2.16.840.1.526298.3.579. 2.59 1951 Unknown [id number] 2.16.840.1.883079.3.579. 2.593 1951 Unknown [id number] 2.16.840.1.423962.3.579. 2.593 1951 Unknown [id number] 2.16.840.1.457742.3.579. 2.593 1951 Unknown [id number] 2.16.840.1.415133.3.579. 2.593 1951 Unknown [id number] 2.16.840.1.065033.3.579. 2.593 1951 Unknown [id number] 2.16.840.1.498667.3.579. 2.196 1951 Unknown [id number] 2.16.840.1.734447.3.579. 2.196 1950 Unknown [id number] 2.16.840.1.648990.3.579. 2.196 1950 Unknown [id number] 2.16.840.1.589719.3.579. 2.196 1951 Unknown [id number] 2.16.840.1.839322.3.579. 2.72 1951 Unknown [id number] 2.16.840.1.686056.3.579. 2.72 1950 Unknown [id number] 2.16.840.1.694588.3.579. 2.72 1951 Unknown [id number] 2.16.840.1.064446.3.579. 2.727 1950 Unknown [id number] 2.16.840.1.778419.3.579. 2.727 1950 Unknown [id number] 2.16.840.1.793379.3.579. 2.727 1951 Unknown [id number] 2.16.840.1.258746.3.579. 2.1258 1951 Unknown [id number] 2.16.840.1.650890.3.579. 2.125 1951 Unknown [id number] 2.16.840.1.998301.3.579. 2.1258 1951 Unknown [id number] 2.16.840.1.066529.3.579. 2.727 1950 Unknown [id number] 2.16.840.1.533164.3.579. 2.727 1950 Unknown [id number] 2..840.1.806113.3.579. 2.727 Unknown [facility] [id number] Unknown [id number] 2.16.840.1.063836.3.579. 2.531 Unknown [id number] 2..840.1.849653.3.579. 2.531 Social History Date Type Detail [facility] Work Phone: Start: 1950 Sex Assigned At Female [facility] Start: 07-25-2023 End: 12-27-2023 Tobacco smoking status NHIS Never smoked tobacco (finding) [facility] Start: 09-19-2023 End: 07-31-2024 Sex Assigned At [facility] Start: 09-19-2023 [facility] History of tobacco use Cigarette Smoker [facility] Start: 09-19-2023 Tobacco use and exposure Smokeless tobacco non-user [facility] Start: 09-19-2023 End: 05-07-2024 Alcoholic beverage intake Not Asked [facility] Start: 09-19-2023 End: 07-31-2024 History of Social function [facility] Start: 1950 Sex assigned at Not on file [facility] Start: 07-14-2024 End: 07-31-2024 Alcoholic beverage intake Lifetime non-drinker (finding) [facility] Clinical Notes 09-02-2018 to 05-07-2024 Felicia Salazar NP - 05/07/2024 11:00 AM Goldy Gold MD - 07/31/2024 10:10 AM EDT Note Date & Type Note Facility 05-07-2024 [...] through 3rd digits) with onset prior to 2017. This does not interfere with her activities. [...] wrist extensors , wrist flexor , and metalsmith strength 5/5. LUE strength deltoid , biceps , triceps , wrist extensors , wrist flexor , and metalsmith strength 5/5. RLE strength iliopsoas, quadriceps, tibialis [...] reflex 0. LLE knee reflex 0. Coordination: Gxotsi-mn-ckqc testing normal. Rapid alternating movements are normal. [...] Sjogren's syndrome, with unspecified organ involvement (HCC) ([facility]/HCC) The patient is established with rheumatology for [...] the office as needed. Felicia Salazar NP [facility] Advanced Neurology documented in this encounter [facility] 12-31-2023 Note Nurse Consultation N ote Reason [...] naproxen, 500 mg, Oral, PRN Potassium Chloride (Yxq-Cael-Jeo 10) 10 mEq oral tablet, extended release, 10 mEq= 1 tab(s), Oral, Daily, 1 refills Vitamin D3 2000 intl units oral Tab, 50 mcg, Oral, Daily Allergies Demerol (Nausea) Neurontin (Unknown) Percocet (Nausea) morphine (Nausea) sulfa drugs (Unknown) Immunizations Vaccine Date Status Comments influenza virus vaccine, inactivated 12/14/2023 Recorded SARS-CoV-2 (COVID-19) [id number] 12/13/2021 Recorded 2022-07-24: [id number] influenza virus vaccine, inactivated 12/05/2021 Recorded SARS-CoV-2 (COVID-19) mRNA-1273 vaccine 08/22/2021 Recorded 2022-07-24: TPV70 SARS-CoV-2 (COVID-19) mRNA-1273 vaccine 01/03/2021 Recorded 2022-07-24: TPV65 SARS-CoV-2 (COVID-19) mRNA-1273 vaccine 05/11/2020 Recorded SARS-CoV-2 (COVID-19) mRNA-1273 vaccine 04/14/2020 Recorded pneumococcal 23-valent vaccine 12/03/2019 Recorded pneumococcal 13-valent vaccine 11/21/2018 Recorded influenza virus vaccine, inactivated 04/27/2016 Recorded influenza virus vaccine, inactivated 12/04/2014 Recorded [facility] 09-02-2018 History of Present illness Narrative Sina Perez is a 74 y.o. female Jean Hair MD presents with chief complaint of Hypercalcemia [...] Wt 164 lb SpO2 94% BMI 33.12 kg/m Smoking Status Every Day BSA 1.76 m Physical Exam Constitutional: Appearance: Normal appearance. She [...] history of left inferior parathyroid surgery in 2018. Her calcium levels were within normal limits in February 2024 (9.5 mg/dL). A repeat calcium, PTH, and vitamin D test will be ordered to ensure everything looks good. She will be seen [...] patient underwent left inferior parathyroid surgery in 2018 and partial thyroidectomy. documented in this encounter [facility] Evaluation + Plan note Future Appointments Appointment Date:07/07/2024 09:15:00 AM Scheduled Provider:Jean Hair MD Location:[facility] Appointment Type: Open Appointment Date:12/25/2024 09:30:00 AM Scheduled Provider: Location:[facility] Appointment Type:FM Medicare Wellness Subsequent Diagnostic Tests PendingHCV Antibody RFX to Quant PCR 12/31/23 [facility] Evaluation note No assessment inform ation available [facility] Work Phone: Evaluation note Diagnosis Onset Date Peripheral neuropathy acute History of parathyroidectomy chronic MGUS (monoclonal gammopathy of unknown significance) chronic Osteoporosis chronic Sjogrens syndrome chronic [facility] Work Phone: Evaluation note* Diagnosis Onset Date Resolution Status Peripheral neuropathy acute History of parathyroidectomy chronic MGUS (monoclonal gammopathy of unknown significance) chronic Osteoporosis chronic Sjogrens syndrome chronic MGUS (monoclonal gammopathy of unknown significance) chronic Peripheral neuropathy acute History of parathyroidectomy chronic MGUS (monoclonal gammopathy of unknown significance) chronic Osteoporosis chronic Sjogrens syndrome chronic [facility] Work Phone: Evaluation note* Diagnosis Lumbar radiculopathy- Primary Thoracic or lumbosacral neuritis or radiculitis, unspecified Degeneration of intervertebral disc of lumbar region, unspecified whether pain present Gait instability Abnormality of gait Sjogren's syndrome, with unspecified organ involvement (HCC) (CMS/HCC) Numbness of left hand documented in this encounter [facility] Diagnosis History of parathyroid surgery- Primary H/O partial thyroidectomy (CMS/HCC) Vitamin D deficiency documented in this encounter [facility] Healthcare[facility]ospital course Narrative No data available for this section [facility] Hospital Discharge instructions No data available for this section [facility] Progress note Author Tatiana Douglas [facility] July 25, 2023 2:25pm Note Date/Time July 25, 2023 10:06 am [facility] [place] [address] Cancer Center Note Signed Patient: Sina Perez MR#: [id number] : 1950 Acct:[id number] Age/Sex: 73 / F Type: DEP AMB [...] to pain injections and spinal ablation at [facility]. M spikehas now trended up to [...] Plan: We are requesting outside records from [facility] for her spinal procedures for peripheral neuropathy and any imaging that they have performed. Proceed with bone marrow biopsy for workup of possible progression of MGUS to myeloma. (3) Osteoporosis: Plan: Due to hypercalcemia the [facility] revealed lumbar spine T score 1.1, normal range and right femoral neck T score -2.8 consistent with osteoporosis. This should be repeatedevery 2 years, and she remains on Boniva therapy without calcium and vitamin D due to hypercalcemia. No acute bony abnormalities are punched out lytic lesions on bone survey 01/19/2021 at [facility]. -- Patient was told by Dr. [...] with Sjogren's syndromeand was referred to Dr. Gold for hypercalcemia. She previously had elevated calcium despite stopping calcium and vitamin D, chlorthalidone, and addition of Lasix. She had mild elevation of parathyroid hormone, intact and normal PTHrp assessment. Given her father's history of pancreas cancer and a niece with thyroid cancer, I recommended referral to genetics ( sees clinic here at [facility] once monthly) for evaluation of multiple [...] with labs prior. Please request records from [facility] from February 2023. CHEMO PLAN No Active Chemotherapy History of Present Illness HPI 07/25/2023: Sina is here for 2-year follow-up of MGUS. When I last saw her in clinic, I referred back to primary care and nephrology for following her symptoms, however she was asked to return for review of her laboratories. Sincebety was last seen she underwent 3 nerve block procedures at [facility] with neurology (Dr. 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 [place]/lambda light chain ratio is normal however there [...] persistent joint stiffness on Plaquenil. Labs from [facility] reviewed from 07/07/2021 showing normal CBC, [...] thyroid function is no longerfollowed by Dr. Gold--she is followed by Dr. Kennedy. Routine followup [...] osteopenia and Lasix was added by Dr. Gold for persistent hypercalcemia. Chlorthalidone was discontinued. I reviewed her recent labs and she continues to have mild hypercalcemia with calcium level of 10.4. A parathyroid intact level was slightly elevated above the normal range and PTH related protein was negative. She has follow-up with Dr. Gold on Sunday, but we discussed genetic evaluation for multiple endocrine neoplasia syndrome due to her hypercalcemia. She also had a thyroid ultrasound at [place] which is not available for my review but patient noted that there was a new nodule. I am discussing with Dr. Gold possible referral to ENT for surgical evaluation [...] visit for MGUS and go over labs [facility] Medical History Medical History Fibromyalgia Multinodular goiter [...] Total Protein 7.1 Albumin 4.4 Globulin 2.7 [facility] labs reviewed: White blood cell count [...] signed by MD Tatiana Douglas> 07/25/23 1425 [facility] Work Phone: Progress note No data available for this section [facility] Summary Purpose Family History No Family History [...] and content) DATE CREATED AUTHOR 08/13/2021 [facility] DATE CREATED AUTHOR AUTHOR'S ORGANIZ ATION 07/05/2022 [facility] DATE CREATED AUTHOR AUTHOR'S ORGANIZ ATION 02/02/2023 [facility] DATE CREATED AUTHOR AUTHOR'S ORGANIZ ATION 01/01/2024 [facility] DATE CREATED AUTHOR AUTHOR'S ORGANIZ ATION 01/02/2024 [facility] DATE CREATED AUTHOR AUTHOR'S ORGANIZ ATION 01/03/2024 [facility] ical Center DATE CREATED AUTHOR AUTHOR'S ORGANIZ ATION 02/24/2024 [facility] DATE CREATED AUTHOR AUTHOR'S ORGANIZ ATION 07/01/2024 [facility] ical Center DATE CREATED AUTHOR AUTHOR'S ORGANIZ ATION 08/02/2024 [facility] DATE CREATED AUTHOR AUTHOR'S ORGANIZ ATION 08/08/2024 [facility] Goals (unrecognized section and content) Goals may be documented in a n alternate sectionGoals may be documented in an alternate sectionGoals may be documented in an alternate sectionGoals may be documented in an alternate section No data available for this section Care Teams (unrecognized sec tion and content) Team Status: Active Member Role Status Dates Jean Hair MD Primary Care Provider Active Team Status: Inactive Member Role Status Dates Ger Kennedy MD Primary Care Provider Active S tart: July 25, 2023 End: July 25, 2023 Tatiana Douglas MD Attending Provider Active Start: July 25, 2023 End: July 25, 2023 Team Status: Inactive Member Role Status Dates Jean Hair MD Primary Care Provider Active Start: August 08, 2023 End: August 08, 2023 Tatiana Douglas MD Attending Provider Active Start: August 08, 2023 End: August 08, 2023 Team Status: Active Member Role Status Dates Tatiana Douglas MD Attending Provider Active Start: August 29, 2023 Jean Hair MD Primary Care Provider Active Start: August 29, 2023 Team Status: Inactive Member Role Status Dates Jean Hair MD Primary Care Provider Active Start: August 29, 2023 End: August 29, 2023 Tatiana Douglas MD Attending Provider Active Start: August 29, 2023 End: August 29, 2023 Team Status: Active Member Role Status Dates Tatiana Douglas MD Attending Provider Active Start: July 25, 2023 Jean Hair MD Primary Care Provider Active Start: July 25, 2023 Saxophone Teacher Relationship Specialty Start Date End Date Jean Hair MD PCP - General Family Medicine 09/19/23 Saxophone Teacher Relationship Specialty Start Date End Date Jean Hair MD PCP - General Family Medicine 09/19/23 Saxophone Teacher Relationship Specialty Start Date End Date Jean Hair MD [address] [facility], [place] [id number] PCP - General Family Medicine 05/01/24 Felicia Salazar NP [address] [place] [id number] Nurse Practitioner Neurology 05/07/24 Saxophone Teacher Relationship Specialty Start Date End Date Jean Hair MD [address] [place] [address] PCP - General Family Medicine 05/01/24 Felicia Salazar NP [address] [place] [phone] Nurse Practitioner Neurology 05/07/24 Adithya Thomas DO [address] [place] [address] Referring Physician Neurology 05/07/24 Saxophone Teacher Relationship Specialty Start Date End Date Jean Hair MD [address] [place] [address], [place] [address] PCP - General Family Medicine 05/01/24 Felicia Salazar NP [address] [place] [address] Nurse Practitioner Neurology 05/07/24 Adithya Thomas DO [address] [place] [address] Referring Physician Neurology 05/07/24 Saxophone Teacher Relationship Specialty Start Date End Date Jean Hair MD [address] [place] [id number] PCP - General Family Medicine 05/01/24 Felicia Salazar NP [address] [phone] Nurse Practitioner Neurology 05/07/24 Adithya Thomas DO [address] [place] [id number] Referring Physician Neurology 05/07/24 Reason for Visit (unrecogniz ed section and content) Reason Comments Back Pain Numbness Reason Comments Hypercalcemia Specialty Diagnoses / Procedures Referred By Contscarlett t Referred To Contact Endocrinology Diagnoses Hypoparathyroidism, unspecified Other obesity due to excess calories Procedures NM OFFICE/OUTPATIENT NEW LOW MDM 30 MINUTES Jean Hair MD [address] [place] [address] Phone: tel: Kamala Gold MD [address] [place] [address] Phone: tel: fax: Referral ID Status Reason Start Date Expiration Date Visits Re quested Visits Authorized [id number] Closed 07/02/2024 12/29/2024 1 1 FOR RECORDS PERTAINING TO PATIENTS WHO ARE [...] BE BASED ON THE PRIMARY CLINICAL RECORDS. [employer] provides no warranty or guarantee of the accuracy or completeness of information in this document.
[2024-08-13 10:45] LABS: Free T3 2.47 pg/mL (2.18-3.98); Phosphorus 3.2 mg/dL (2.6-4.7); Thyroid Stimulating Hormone 0.741 uIU/mL (0.358-3.740)
[2024-08-13 11:03] LABS: Free T4 1.21 ng/dL (0.76-1.46)
[2024-08-14 11:13] LABS: PTH, Intact 59 pg/mL (15-65)
== END 2024-08-13 09:50 | disposition home or self-care (01) ==
LOC: LAB 09:49
PROVIDERS: PCP Family Medicine; Visit Provider Internal Medicine
DX: Z98.890 Other specified postprocedural states (principal); E89.0 Postprocedural hypothyroidism; E55.9 Vitamin D deficiency, unspecified
CPT/HCPCS: 36415; 82306; 83970; 84100; 84439; 84443; 84481

== ENCOUNTER 2024-08-13 09:51 | Outpatient (OUT) | payer MEDICARE, OTHER, SELFPAY ==
[2024-08-13 10:24] LABS: Basophils Percent Auto 0.6 % (0.2-2.0); Eosinophils Absolute Auto 0.2 10^3/uL (0.0-0.7); Hemoglobin 12.7 g/dL (12.0-16.0); Immature Granulocytes Abs Auto 0.02 10^3/uL (0.00-0.03); Immature Granulocytes Pct Auto 0.4 % (0.0-0.5); Lymphocytes Absolute Auto 0.9 10^3/uL (1.2-3.8); Lymphocytes Percent Auto 17.1 % (20.5-60.0); Mean Corpuscular HGB Conc 31.8 g/dL (29.9-35.2); Mean Corpuscular Hemoglobin 29.5 pg (26.7-34.0); Mean Platelet Volume 11.7 fL (9.5-13.5); Monocytes Absolute Auto 0.4 10^3/uL (0.3-0.8); Monocytes Percent Auto 7.9 % (1.7-12.0); Neutrophils Absolute Auto 3.8 10^3/uL (1.4-6.5); Platelet Count 181 10^3/uL (150-450); Red Cell Distribution Width 13.4 % (11.0-15.0); White Blood Count 5.3 10^3/uL (4.0-11.0)
[2024-08-13 10:34] LABS: Alanine Aminotransferase 25 U/L (14-59); Albumin Level 3.7 g/dL (3.4-5.0); Alkaline Phosphatase 102 U/L (46-116); Aspartate Amino Transferase 26 U/L (15-37); Bilirubin Total 0.9 mg/dL (0.2-1.0); Calcium 9.3 mg/dL (8.5-10.1); Carbon Dioxide 28.1 mmol/L (21.0-32.0); Chloride 103 mmol/L (98-107); Estimated GFR (African America >60 (>=60 mL/min/1.73m^2); Estimated GFR (Non-African Ame 52 (>=60 mL/min/1.73m^2); Globulin 3.6 g/dL; Glucose 88 mg/dL (74-106); Potassium 4.1 mmol/L (3.5-5.1); Sodium 139 mmol/L (136-145); Total Protein 7.3 g/dL (6.4-8.2)
== END 2024-08-13 09:52 | disposition home or self-care (01) ==
LOC: LAB 09:51
PROVIDERS: PCP Family Medicine
DX: E55.9 Vitamin D deficiency, unspecified (principal); Z98.890 Other specified postprocedural states; E89.0 Postprocedural hypothyroidism; D47.2 Monoclonal gammopathy
CPT/HCPCS: 36415; 80053; 82232; 82306; 82784; 83521; 83970; 84100; 84155; 84165; 84439; 84443; 84481; 85025; 86334

== ENCOUNTER 2024-08-27 10:11 | Outpatient (OUT) | payer MEDICARE, OTHER, SELFPAY ==
--- NOTE | 2024-08-27 10:13 | MM_ITS ---
Patient Name: SINA VALENCIA MR#: [id number] : 1950 Exam Date: 08/27/2024 Ordering Doctor: DR. JEAN HAIR . RADIOLOGY REPORT PROCEDURE: MM TOMOSYNTHESIS SCREENING BI COMPARISON: MM TOMOSYNTHESIS SCREENING BI, 08/24/2023. MM TOMOSYNTHESIS SCREENING BI, 08/21/2022. MG MAMM SCREEN 3D SONY CAD, 08/19/2021. MG MAMM SONY SCRN W CAD DIG, 02/17/2013. INDICATIONS: Screening Calculator Name NCI Breast Cancer Risk Assessment Tool 5 Year Breast Cancer Risk 2.00% Lifetime Breast Cancer Risk 4.80% Personal Breast Cancer No Personal Ovarian Cancer No Treatments None Family Cancers Father with pancreatic cancer at age 81; Grandmother-maternal with colon cancer at age 70. LOCATION: [facility] BREAST COMPOSITION: There are scattered areas of fibroglandular density. FINDINGS: DIAGNOSTIC CATEGORY 1--NEGATIVE. RIGHT BREAST: No significant suspicious finding. LEFT BREAST: No significant suspicious finding. RECOMMENDATIONS: ROUTINE MAMMOGRAM AND CLINICAL EVALUATION IN 12 MONTHS. PLEASE NOTE: A NORMAL MAMMOGRAM DOES NOT EXCLUDE THE POSSIBILITY OF BREAST CANCER. A CLINICALLY SUSPICIOUS PALPABLE LUMP SHOULD BE BIOPSIED. Dictated by: João Banerjee DO on 08/27/2024 at 15:48 Approved by: João Banerjee DO on 08/27/2024 at 15:50
== END 2024-08-27 10:12 | disposition home or self-care (01) ==
LOC: MAMMO 10:11
PROVIDERS: PCP Family Medicine; Visit Provider Family Medicine
DX: Z12.31 Encounter for screening mammogram for malignant neoplasm of breast (principal); Z80.0 Family history of malignant neoplasm of digestive organs; Z80.8 Family history of malignant neoplasm of other organs or systems
CPT/HCPCS: 77063; 77067

== ENCOUNTER 2024-12-15 10:21 | Outpatient (OUT) | payer MEDICARE, OTHER, SELFPAY ==
--- OUTSIDE RECORDS SUMMARY | 2024-12-15 10:29 | XMS_ITS | CCD ---
Author Organization [facility] Care Team Providers Care Well Tester Name Role Phone KENNEDY ., DR GER Canseco Primary Care Unavailable KELLY, LEIGH Admitting Unavailable KELLY, LEIGH Attending Unavailable MISAEL, DR TATIANA Tracy Admitting Unavailable KENNEDY ., DR GER Canseco Primary Care Unavailable MISAEL, DR TATIANA Tracy Attending Unavailable MISAEL, DR TATIANA Tracy Consulting Unavailable KENNEDY ., DR GER Canseco Primary Care Unavailable HALADANasreen, DR SINGH Consulting Unavailable ANDREWADANasreen, DR ISNGH Admitting Unavailable HALADANasreen, DR SINGH Attending Unavailable KENNEDY ., DR GER Canseco Admitting Unavailable KENNEDY ., DR GER Canseco Attending Unavailable KENNEDY ., DR GER Canseco Consulting Unavailable KENNEDY ., DR GER Canseco Primary Care Unavailable ROSITA, DR HEATHER Parekh Consulting Unavailable NILSON, DR SINGH Consulting Unavailable KENNEDY ., DR GER Canseco Admitting Unavailable KENNEDY ., DR GER Canseco Attending Unavailable KENNEDY ., DR GER Canseco Consulting Unavailable KENNEDY ., DR GER Canseco Primary Care Unavailable ROSITA, DR HEATHER Parekh Consulting Unavailable NILSON, DR SINGH Consulting Unavailable KENNEDY ., DR GER Canseco Primary Care Unavailable NILSON, DR SINGH Admitting Unavailable HALADANasreen, DR SINGH Attending Unavailable KENNEDY ., DR GER Canseco Admitting Unavailable KENNEDY ., DR GER Canseco Attending Unavailable KENNEDY ., DR GER Canseco Consulting Unavailable KENNEDY ., DR GER Canseco Primary Care Unavailable DR NOEMI ACOSTA Consulting Unavailable Connor BRADFORD, Alice Miranda Attending Unavailable Connor BRADFORD, Alice Miranda Attending Unavailable Connor BRADFORD, Alice Miranda Attending Unavailable Connor BRADFORD, Alice Miranda Attending Unavailable MD Tatiana Douglas Attending Provider [phone] MD Jean Hair Primary Care Provider MD Jean Hair Primary Care Provider MD Tatiana Douglas Attending Provider [phone] Jean Hair Primary Care Physician [phone] Jean Hair Attending Unavailable Jean Hair Admitting Unavailable Jean Hair MD Primary Care Provider Jean Hair MD Primary Care Provider Felicia Salazar NP Unavailable Adithya Thomas DO Unavailable FELICIA SALAZAR Attending Unavailable KAMALA GOLD Attending Unavailable JEAN HAIR Referring Unavailable FELICIA SALAZAR Attending Unavailable Jean Hair MD Primary Care Provider Tatiana Douglas MD Attending Provider Tatiana Douglas Attending Unavailable Tatiana Douglas Admitting Unavailable Jean Hair Primary Care Unavailable Jean Hair Attending Unavailable Jean Hair Attending Unavailable Jean Hair Attending Unavailable Jean Hair Attending Unavailable Jean Hair Admitting Unavailable Jean Hair Attending Unavailable Jean Hair Attending Unavailable Stacey, BAG TESTER Chel L Admitting Unavailable Jean Hair Attending Unavailable Jean Hair Attending Unavailable Stacey, BAG TESTER Chle L Attending Unavailable Stacey, BAG TESTER Chel L Attending Unavailable Stacey, BAG TESTER Chel L Attending Unavailable Allergies Allergy Classification Reported Allergen(s) Allergy Type Date of Onset Reaction(s) Facility Anti-Epileptic Agents (1 source) gabapentin Drug Allergy 08-08-19 24 Insomnia [facility] Dihydrofolate Reductase Inhibitors (antibiotic) (1 source) Trimethoprim Drug Allergy 08-08-[address] [facility] Latex (1 source) Latex Substance Allergy 08-08-19 24 blisters at site of contact [facility] Opioid Agonists (3 sources) Meperidine Drug Allergy 08-08-19 24 Nausea [facility] Sulfonamides (antibiotic) (1 source) Sulfamethoxazole Drug Allergy 08-08-[address] [facility] (5 sources) gabapentin Drug Allergy 07-15-19 22 Insomnia [facility] Repository Comment on above: muscle spasm (1 source) Sulfamethoxazole / Trimethoprim Drug Allergy [facility] Repository (1 source) Sulfonamides (Antibiotic) Drug allergy (disorder) 08-21-19 15 [facility] Repository (15 sources) Latex; Translations: [latex] Allergy to substance 09-02-19 Unknown [facility] (16 sources) Meperidine; Translations: [Meperidine] Drug Allergy 07-15-19 Nausea (finding), GI intolerance [facility] (18 sources) Morphine; Translations: [Morphine] Drug Allergy 07-15-19 Nausea (finding), Nausea Only [facility] (15 sources) oxyCODONE; Translations: [oxycodone] Drug Allergy 07-15-19 GI intolerance [facility] (5 sources) Sulfamethoxazole; Translations: [sulfamethoxazole] Drug Allergy 07-15-[address] [facility] (15 sources) Trimethoprim; Translations: [trimethoprim] Drug Allergy 07-15-[address] [facility] (3 sources) Acetaminophen / oxyCODONE; Translations: [acetaminophen-oxyc odone] Drug Allergy Nausea (finding) [facility] (13 sources) gabapentin; Translations: [gabapentin] Drug Allergy 09-16-19 Unknown (qualifier value) [facility] (3 sources) Sulfonamides (Antibiotic); Translations: [sulfa drugs] Drug allergy Unknown (qualifier value) [facility] (10 sources) Meperidine Drug Allergy 09-19-19 24 Nausea Only [facility] (10 sources) Sulfamethoxazole / Trimethoprim Drug Allergy 09-16-19 24 [facility] (10 sources) Sulfonamides (Antibiotic) Propensity to adverse reactions 09-16-19 24 [facility] (1 source) gabapentin Drug Allergy 08-29-19 [facility] Repository (2 sources) Meperidine; Translations: [Demerol] Drug Allergy [facility] Repository Medications Current Medications Medication Drug Class(es) Dates Sig (Normalized) Sig (Original) Acetaminophen (11 sources) Start: 12-25-2022 acetaminophen 650 mg, PRN as needed for pain, Refills(s) 0 Start Date: 10/23/23 Status: Ordered take 1 tablet by maren every eight hours as needed for pain acetaminophen (Tylenol 8 Hour) 650 MG ER tablet Take 650 mg by mouth every 8 (eight) hours if needed for mild pain Do not crush, chew, or split. Active carboxymethylcellulose sodium 5 mg/ml ophthalmic solution (1 source) Start: 12-19-2016 Carboxymethylcellulose Sodium (Refresh Tears) 0.5 % Drops (4 sources) Start: 12-19-2016 Carboxymethylcellulose Sodium (Refresh Tears) 0.5 % Drops Active 1 DROPS OPHTHALMIC 4-12 TIMES PER DAY December 19, 2016 12:00am carboxymethylcellulose-sod ium hyaluronate (1 source) Start: 08-09-2023 carboxymethylcellulose-so dium hyaluronate See Instructions, Refill(s) 0, 0.5% 1 drop both etes 4-12 times a day as needed Start Date: 08/09/23 Status: Ordered cholecalciferol 0.05 mg oral capsule (19 sources) Vitamin D Start: 07-25-2023 take 1 capsule by mouth once daily Start: 12-19-2016 End: 06-22-2017 take 1 tablet by mouth once daily Cholecalciferol (Vitamin D3) (Vitamin D3) 5,000 unit Tablet Discontinued 5000 UNIT PO Daily December 19, 2016 12:00am June 22, 2017 10:11am cholecalciferol (Vitamin D-3) 50 MCG (2000 UT) capsule Take 2,000 Units by mouth Active Fluocinonide (5 sources) Corticosteroid Start: 08-09-2023 fluocinonide T op 0.05% Crm 15 gram See Instructions, Refill(s) 0, 1 torrie Topical to scalp sunday through sunday, none on the weekend Start Date: 08/09/23 Status: Ordered Start: 07-25-2023 furosemide 20 mg oral tablet (16 sources) Loop Diuretic Start: 06-22-2017 take 1 tablet by mouth once daily hydroxychloroquine sulfate 200 mg oral tablet (16 sources) Antimalarial, Antirheumatic Agent Start: 12-19-2016 take 1 tablet by mouth twice daily ketoconazole 20 mg/ml medicated shampoo (16 sources) Azole Antifungal Start: 08-09-2023 ketoconazole Top 2% Shampoo 1 torrie, Topical, Every other day, Refill(s) 0 Start Date: 08/09/23 Status: Ordered Start: 07-25-2023 Start: 07-25-2023 Ketoconazole A ctive 1 APPLIC TOPICAL Daily July 25, 2023 12:00am Start: 12-25-2022 ketoconazole = 2 %, Topical, Daily, PRN Rash, Refills(s) 0 Start Date: 12/25/22 Status: Ordered levothyroxine sodium 0.05 mg oral tablet (16 sources) l-Thyroxine Start: 08-09-2023 take 1 tablet by mouth once daily levothyroxine 50 mcg (0.05 mg) Tab 50 mcg = 1 tab(s), Oral, Daily, # 90 tab(s), Refills(s) 1, Pharmacy: [facility] 1155, 146, cm, 08/09/23 10:30:00 EDT, Height/Length Dosing, 70.6, kg, 08/09/23 10:30:00 EDT, Weight Dosing Start Date: 08/09/23 Status: Ordered Start: 12-19-2016 take 1 tablet by mouth once da john lisinopril 10 mg oral tablet (16 sources) Angiotensin Converting Enzyme Inhibitor Start: 12-19-2016 take 1 tablet by mouth once daily metroNIDAZOLE 7.5 mg/ml topical cream (15 sources) Nitroimidazole Antimicrobial Start: 07-25-2023 Start: 07-24-2022 metronidazole topical 1% cream 1 torrie, Topical, BID, 30 gram, Refill(s) 0, use for rosacea Start Date: 07/24/22 Status: Ordered metroNIDAZOLE (M etrocream) 0.75 % cream Apply 2 application topically in the morning and 2 application before bedtime. for 90 days, Notes to Pharmacist: Rosachad. Active naproxen sodium 220 mg oral tablet (15 sources) Nonsteroidal Anti-inflammatory Drug Start: 07-25-2023 take 1 tablet by mouth twice daily as needed for pain Start: 12-25-2022 naproxen 500 m g, Oral, [...] Daily, # 100 cap(s), Refills(s) 0, Pharmacy: [facility] 1155, 149.9, cm, 07/24/22 13:31:00 EDT, Height/Length Dosing, 69.1, kg, 07/24/22 13:31:00 EDT, Weight Dosing Start Date: 07/24/22 Status: Ordered Completed/Discontinued Medications Medication Drug Class(es) Dates Sig (Normalized) Sig (Original) atorvastatin 10 mg oral tablet (20 sources) HMG-CoA Reductase Inhibitor Start: 12-19-2016 End: 10-15-2017 take 1 tablet by mouth once daily Atorvastatin 10 mg Tablet Discontinued 10 MG PO Daily June 22, 2017 12:00am October 15, 2017 10:46am chlorthalidone 25 mg oral tablet (5 sources) Thiazide-like Diuretic Start: 12-19-2016 End: 06-22-2017 Chlorthalidone 25 mg Tablet Discontinued 12.5 MG PO Daily December 19, 2016 12:00am June 22, 2017 10:11am Start: 12-19-2016 End: 06-22-2017 take 12.5 mg by mouth once daily Chlorthalidone Discontinued 12.5 MG PO Daily December 19, 2016 12:00am June 22, 2017 10:11am ibandronic acid 150 mg oral tablet (15 sources) Bisphosphonate Start: 12-19-2016 End: 08-29-2023 take [...] omeprazole 20 mg delayed release oral capsule (15 sources) Proton Pump Inhibitor Start: 12-19-2016 End: 10-29-2017 take 1 capsule by mouth once daily Omeprazole 20 mg Capsule,Delayed Release(Dr/Ec) Discontinued 20 MG PO Daily December 19, 2016 12:00am October 29, 2017 9:35am Potassium Chloride (16 sources) Start: 08-09-2023 take 1 tablet by mouth once daily Potassium Chloride (Wwb-Gzld-Qki 10) 10 mEq oral tablet, extended release 10 mEq = 1 tab(s), Oral, Daily, # 90 tab(s), Refills(s) 1, Pharmacy: [facility], 146, cm, 08/09/23 10:30:00 EDT, Height/Length Dosing, 70.6, kg, 08/09/23 10:30:00 EDT, Weight Dosing Start Date: 08/09/23 Status: Ordered Start: 06-22-2017 take 1 capsule by mouth once d aily Problems Active Problems Problem Classification Problem Date [...] Neoplasms of unspecified nature or uncertain behavior (17 sources) Monoclonal gammopathy; Translations: [Monoclonal gammopathy of uncertain significance] Onset: 2 Chronic Nutritional deficiencies (4 sources) Vitamin D deficiency, unspecified; Translations: [Vitamin D deficiency] Onset: 2 07-24-2022 Chronic Osteoarthritis (1 source) Osteoarthritis of knee 07-24-2022 Chronic Osteoporosis (11 sources) Osteoporosis; Translations: [Age-related osteoporosis without current pathological fracture] 03-21-2023 Chronic Other bone disease and musculoskeletal deformities (5 sources) Osteopenia; Translations: [Other specified disorders of bone density and structure, unspecified site] 12-23-2016 Episodic Other connective tissue disease (1 source) Abnormal posture; Translations: [ABNORMAL POSTURE] Onset: 3 Episodic Other connective tissue disease (1 source) Fibromyalgia 07-24-2022 Episodic Other endocrine disorders (5 sources) Hyperparathyroidism; Translations: [Hyperparathyroidism, unspecified] 06-22-2017 Chronic Other endocrine disorders (1 source) Hypoparathyroidism 07-24-2022 Chronic Other nervous system disorders (6 sources) Peripheral nerve disease ; Translations: [Polyneuropathy, [...] Chronic Other nutritional; endocrine; and metabolic disorders (5 sources) Hypercalcemia; Translations: [Hypercalcemia] 12-22-2016 Chronic Other nutritional; endocrine; and metabolic disorders (1 source) Obesity caused by energy imbalance 12-27-2023 Chronic Residual codes; unclassified (6 sources) History of parathyroidectomy; Translations: [Other specified [...] te Episodic/Chronic Other aftercare (1 source) Other manager terminal (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 therapy; Translations: [OTH [facility] CURRENT DRUG THERAPY] Onset: 12-25-2021 Episodic Other [...] Test Name Value Interpretation Reference Range Facility ED Pat Eduon 10-02-2024 ED [facility] ED [facility] Myofascial Pain Syndrome [...] these instructions at home: Medicines ??? Take uqzx-dce-kqfmmvr and prescription medicines only as told by your health care provider. ??? Ask your health care provider if the medicine prescribed to you: ? Requires you to avoid driving or using machinery. ? Can cause constipation. You may need to take these actions to prevent or treat constipation: ? Drink enough fluid to keep your urine pale yellow. ? Take gbzs-xok-obytpsa or prescription medicines. ? Eat foods that [...] any pr (more content not included)... Normal [facility] 09-30-19 [facility] Case Information Case Priority: None Programs: -- Referral Source: Roll Reclaimer Referral Reason: Disease management Case Type: Chronic Care Management Risk Score: -- Case Status: Active (July 30, 2024) Date Assigned: July 01, 2024 Assigned By: Abiodun Hodges Date Enrolled: July 30, 2024 Assigned Primary Personnel: Abiodun Hodges Assigned Secondary Personnel: -- Case Physician: Chel Parker Problems Ongoing Anemia BMI 32.0-32.9,adult BMI 33.0-33.9,adult [...] cream, 1 torrie, Topical, BID Potassium Chloride (Ftr-Lfsw-Nap 10) 10 mEq oral tablet, extended release, [...] Assessments 07/22/24 14:16:00 Result Name Value Comment [facility] Program Enrollment Verbally agreed to receive [facility] services CCM Written Consent Written consent in progress CCM Verbal Consent By Self 07/22/24 13:00:00 Result Name Value Comment CM Preferred Spoken Language Nepalese CM Preferred Written Language Nepalese Preferred Communication Mode Verbal Ability to Read/Write [...] Spouse/Significant other, Family member(s), Cultural/Spiritual community Primary Children'S Tutor of Home Medication Self Home Medication Behavior [...] General Sympto (more content not included)... Normal [facility] 08-08-19 [facility] Case Information Case Priority: None Programs: -- Referral Source: Roll Reclaimer Referral Reason: Disease management Case Type: Chronic [...] cream, 1 torrie, Topical, BID Potassium Chloride (Qqe-Odns-Iai 10) 10 mEq oral tablet, extended release, [...] CCM Program Enrollment Verbally agreed to receive [facility] services CCM Written Consent Written consent in progress CCM Verbal Consent By Self 07/22/24 13:00:00 Result Name Value Comment CM Preferred Spoken Language Nepalese CM Preferred Written Language Nepalese Preferred Communication Mode Verbal Ability to Read/Write [...] Spouse/Significant other, Family member(s), Cultural/Spiritual community Primary Children'S Tutor of Home Medication Self Home Medication Behavior [...] General Sympto (more content not included)... Normal [facility] 07-24-19 [facility] Case Information Case Priority: None Programs: -- Referral Source: Roll Reclaimer Referral Reason: Disease management Case Type: Chronic [...] cream, 1 torrie, Topical, BID Potassium Chloride (Vab-Zpom-Bgs 10) 10 mEq oral tablet, extended release, [...] CCM Program Enrollment Verbally agreed to receive [facility] services CCM Written Consent Written consent in progress CCM Verbal Consent By Self 07/22/24 13:00:00 Result Name Value Comment Preferred Spoken Language Nepalese CM Preferred Written Language Nepalese Preferred Communication Mode Verbal Ability to Read/Write [...] Spouse/Significant other, Family member(s), Cultural/Spiritual community Primary Children'S Tutor of Home Medication Self Home Medication Behavior [...] Symptoms None (more content not included)... Normal [facility] Population Health Population Health Case Information Case Priority: None Programs: -- Referral Source: Roll Reclaimer Referral Reason: Disease management Case Type: Chronic [...] cream, 1 torrie, Topical, BID Potassium Chloride (Wrv-Mpbz-Myo 10) 10 mEq oral tablet, extended release, [...] Assessments 07/22/24 14:16:00 Result Name Value Comment [facility] Program Enrollment Verbally agreed to receive [facility] services CCM Written Consent Written consent in progress CCM Verbal Consent By Self 07/22/24 13:00:00 Result Name Value Comment CM Preferred Spoken Language Nepalese CM Preferred Written Language Nepalese Preferred Communication Mode Verbal Ability to Read/Write [...] Spouse/Significant other, Family member(s), Cultural/Spiritual community Primary Children'S Tutor of Home Medication Self Home Medication Behavior [...] Symptoms None (more content not included)... Normal [facility] Comment on above: Other Comment: date error [...] cream, 1 torrie, Topical, BID Potassium Chloride (Eyk-Czey-Usi 10) 10 mEq oral tablet, extended release, [...] - Comments: - - 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 Frequency Status Vocational Rehabilitation Counselor Review Educational Material - - Not done - - Gradually Increase Frequency of Exercise Sessions - - Not done - - Use Good Portion Control - - Not done - - Goal: Maintain Therapeutic BP and Prevent Complications Start Date: 2024 Target: - - Status: Not met Barriers: - - Comments: - - 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 Frequency Status Vocational Rehabilitation Counselor Review Educational Material - - Not done [...] - Comments: - - 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 Frequency Status Vocational Rehabilitation Counselor Review Educational Material - - Not done [...] - - Not done - - Normal [facility] Ambulatory Visit Summaryon 0 07-21-2024 Ambulatory [...] 1% cream) naproxen potassium chloride (Potassium Chloride (Wxl-Bsnf-Wmp 10) 10 mEq oral tablet, extended release) [...] Follow-Up Appointments 2024 3:20 PM EDT With: Alejandro BRADFORD, Jean Rainey Where: [address] [address]- 2024 3:30 PM EDT With: Where: [address] [address]- Medications What How Much When Instructions Unchanged [...] for pain Unchanged potassium chloride (Potassium Chloride (Div-Klrc-Fdh 10) 10 mEq oral tablet, extended release) [...] choosing us for your care. Normal [facility] Family Medicine Office/Clini c Noteon 07-21-2024 Family Medicine Office/Clinic Note Family Medicine Office/Clinic Note Chief Complaint ER Follow up Patient presents with post-nasal drip and irritation in the throat. HPI Staff Sina is a 74 year old female presenting for ER follow up ER followup: Hospital: [facility] Visit date: 07/15/24 Symptoms the patient presented [...] We talked about managing her symptoms with avna-qgv-ikfyede options such as nasal saline. The potential [...] fracture, Mohs surgery, Parathyroidectomy, Repair of tendon, BREANAN BSO - Total abdominal hysterectomy and bilateral salpingo-oophorectomy. Medications acetaminophen, 650 mg, PRN atorvastatin 10 mg Tab, 10 mg= 1 tab(s), Oral, Daily, 4 refills carboxymethylcellulose-sod ium hyaluronate, See Instructions fluocinonide Top 0.05% Crm 15 gram, See Instructions furosemide 20 mg Tab, See In (more content not included)... Normal [facility] Comment on above: Result Comment: Elec tronically Signed By: Jean Hair MD\.br\Date and Time Signed: 07/21/24 07:45 EDT Ambulatory [...] Jean Hair MD Primary Care Physician - Ross MD, Jean E. This Is Your Medications List acetaminophen atorvastatin [...] 1% cream) naproxen potassium chloride (Potassium Chloride (Eso-Sqgv-Hgd 10) 10 mEq oral tablet, extended release) [...] Follow-Up Appointments 2024 9:30 AM EDT Where: [facility] [address] [address]- Medications What How Much When Instructions Unchanged [...] for pain Unchanged potassium chloride (Potassium Chloride (Uhz-Tnmy-Lnn 10) 10 mEq oral tablet, extended release) [...] for choosing us for your care. Normal [facility] Family Medicine Office/Clini c Noteon 06-30-2024 Family Medicine Office/Clinic Note Family Medicine Office/Clinic Note Chief Complaint Follow up The patient presents for a follow-up on multiple chronic health conditions and medications. [facility] Staff Pt presents today for follow up [...] (12/31/23 09:20:00) Referred back to Endo @ [facility] due to Sjogren's syndrome. Pt states she never heard anything. Has been following oncology @ [facility]. PET scan for MGUS. Not approved by [...] with current medications in outpatient record [id number] [facility] External Ambulatory Referral Influenza immunization status assessed [...] excess calories) Continue diet and exercise. Ordered: [facility] External Ambulatory Referral MA Mamm Screen w/CAD if perf and 3D Oh 3. BMI 33.0-33.9,adult (Z68.33: Body mass index [BMI] 33.0-33.9, adult) BMI education added Ordered: [facility] External Ambulatory Referral MA Mamm Screen w/CAD if perf and 3D Oh 4. Nonsmoker (Z78.9: Other specified health status) Please continue not to smoke and albuterol Ordered: [facility] External Ambulatory Referral MA Mamm Screen w/CAD if perf and 3D Oh 5. Primary hypertension (I10: Essential (primary) hypertension) - Medications to remain; promote self-checking of blood pressure. Ordered: [facility] External Ambulatory Referral MA Mamm Screen w/CAD [...] without esoph (more content not included)... Normal [facility] Comment on above: Result Comment: Elec tronically Signed By: Alejandro BRADFORD, Jean Rainey\.br\Date and Time Signed: 06/30/24 09:03 EDT PROTEIN ELECTRO, RANDOM URIN Balbir 02-08-2024 ALBUMIN, URINE 25.3 % . [facility] [id number], URINE 3.4 % . [facility] [id number], URINE 7.9 % . [facility] BETA GLOBULIN, URINE 48 % . [facility] GAMMA GLOBULIN, URINE 15.3 % . [facility] M-SPIKE % Not Observed Not Observed [facility] PLEASE NOTE: Comment . [facility] Comment on above: Protein electrophore sis scan will follow via computer, mail, or farmworker general delivery. Performed at: [address] [id number] [employer]na Per Diem: Kristian Castro PhD, Phone: [phone] Protein (U) [Mass/Vol] 4.2 mg/dL Not Estab. NO [facility] 24 hour urine albumin/total protein ratio by electrophoresisOrdered By: Tatiana Douglas on 02-06-2024 Albumin Elph (24H U) [Mass fraction] 25.3 % . [facility] 24 hour urine gamma globulin /total protein ratio by electrophoresisOrdered By: Tatiana Douglas on 02-06-2024 Gamma globulin Elph (24H U) [Mass fraction] 15.3 % . [facility] 24 hour urine protein monocl onal/total protein by electrophoresisOrdered By: Tatiana Douglas on 02-06-2024 Protein.monoclonal Elph (24H U) [Mass fraction] Not observed % Not Observed [facility] Alanine aminotransferase [En zymatic activity/volume] in Serum or PlasmaOrdered By: Tatiana Douglas on 02-06-2024 ALT [Catalytic activity/Vol] 15 U/L Normal [facility] Comment on above: Performed By: #### C BC, CMP #### [facility] [address] [place] [address] #### UPE RAND, MG SERUM, B2-MICRO, SPE, KAPPA #### [facility] , Albumin [Mass/volume] in Ser um or Plasma by Bromocresol green (BCG) dye binding methoOrdered By: Tatiana Misael on 02-06-2024 Albumin BCG dye [Mass/Vol] 4.3 g/dL 3.5-5.7 [facility] Alkaline phosphatase [Enzyma tic activity/volume] in Serum or PlasmaOrdered By: Tatiana Misael on 02-06-2024 ALP [Catalytic activity/Vol] 86 U/L Normal 34-104 [facility] Comment on above: Performed By: #### C BC, CMP #### [address] #### UPE RAND, MG SERUM, B2-MICRO, SPE, KAPPA #### [facility] , Aspartate aminotransferase [ Enzymatic activity/volume] in Serum or PlasmaOrdered By: Tatiana Douglas on 02-06-2024 AST [Catalytic activity/Vol] 25 U/L Normal 13-39 [facility] Comment on above: Performed By: #### C BC, CMP #### [address] #### UPE RAND, MG SERUM, B2-MICRO, SPE, KAPPA #### [facility] , Basophils [#/volume] in Bloo d by Automated countOrdered By: Tatiana Douglas on 02-06-2024 Basophils (Bld) [#/Vol] 0.1 10*3/uL Normal 0.0-0.2 [facility] Comment on above: Result Comment: PERF ORMED BY: [place] [address] PATHOLOGIST CURING ROOM WORKER NOHEMY STEPHENS M.D. Performed By: #### C BC, CMP #### [place] [address] [place] #### UPE RAND, MG SERUM, B2-MICRO, SPE, KAPPA #### [facility] , Basophils/100 leukocytes in Blood by Automated countOrdered By: Tatiana Douglas on 02-06-2024 Basophils/100 WBC (Bld) 1.0 % Normal . [facility] Comment on above: Performed By: #### C BC, CMP #### [place] [address] [place] #### UPE RAND, MG SERUM, B2-MICRO, SPE, KAPPA #### [facility] , Beta 2 Microglobulin, Serumo n 02-06-2024 Beta 2 Microglobulin, Serum 2.3 mg/L Normal 0.6-2.4 [facility] Comment on above: Result Comment: Siem [facility] Immulite 2000 Immunochemiluminometric assay (ICMA) Values obtained with different assay methods or kits cannot be used interchangeably. Results cannot be interpreted as absolute evidence of the presence or absence of malignant disease. Performed at: [address] [id number] Cna Per Diem: Camila Mckeon MD, Phone: [phone] Performed By: #### C BC, CMP #### [place] [address] [place] #### UPE RAND, MG SERUM, B2-MICRO, SPE, KAPPA #### [facility] , Bilirubin.total [Mass/volume ] in Serum or PlasmaOrdered By: Tatiana Douglas on 02-06-2024 Bilirubin [Mass/Vol] 0.8 mg/dL Normal 0.3-1.0 [facility] Comment on above: Performed By: #### C BC, CMP #### [place] [address] [place] #### UPE RAND, MG SERUM, B2-MICRO, SPE, KAPPA #### [facility] , CBC W Auto Differential pane l (Bld)on 02-06-2024 Basophils (Bld) [#/Vol] 0.1 10*3/uL 0.0 - 0.2 10*3/uL [facility] Basophils/100 WBC Manual cnt (Syn fld) 1 % . [facility] Eosinophils (Bld) [#/Vol] 0.1 10*3/uL 0.0 - 0.45 10*3/uL [facility] Eosinophils/100 WBC Manual cnt (Syn fld) 2.6 % . [facility] Erythrocyte distribution width (RBC) [Ratio] 13.1 % 11.9 - 15.3 % [facility] Hematocrit (Bld) [Volume fraction] 39.8 % 34.0 - 46.4 % [facility] Hemoglobin (Bld) [Mass/Vol] 13.3 g/dL 11.8 - 15.4 g/dL [facility] Interpretation and review of laboratory results Abnormal [facility] Lymphocytes (Bld) [#/Vol] 0.9 10*3/uL Low 1.00 - 4.8 10*3/uL [facility] Lymphocytes/100 WBC Manual cnt (Syn fld) 16.8 % . [facility] MCH (RBC) [Entitic mass] 30.8 pg 24.7 - 34.3 pg [facility] MCHC (RBC) [Mass/Vol] 33.3 g/dL 32.0 - 35.0 g/dL [facility] MCV (RBC) [Entitic vol] 92.5 fL 80 - 100 fL [facility] Monocytes (Bld) [#/Vol] 0.5 10*3/uL 0.0 - 0.8 10*3/uL [facility] Monocytes+Macrophages/1 00 WBC Manual cnt (Syn fld) 9.7 % . [facility] Neutrophils (Bld) [#/Vol] 3.9 10*3/uL 1.8 - 7.7 10*3/uL [facility] Neutrophils/100 WBC Manual cnt (Syn fld) 69.9 % . [facility] NRBC 0.1 /100{WBC} 0 - 0.5 /100{WBC} [facility] Platelet mean volume (Bld) [Entitic vol] 9.9 fL 6.3 - 10.7 fL [facility] Platelets (Bld) [#/Vol] 206 10*3/uL 150 - 450 10*3/uL [facility] RBC LM.HPF (Urine sed) [#/Area] 4.31 10*6/uL 3.60 - 5.00 10*6/uL [facility] WBC (Bld) [#/Vol] 5.6 10*3/uL 3.8 - 11.6 10*3/uL [facility] WBC LM.HPF (Urine sed) [#/Area] 5.6 10*3/uL 3.8 - 11.6 10*3/uL [facility] Calcium [Mass/volume] in Ser um or PlasmaOrdered By: Tatiana Douglas on 02-06-2024 Calcium [Mass/Vol] 9.5 mg/dL Normal 8.6-10.3 [facility] Comment on above: Performed By: #### C BC, CMP #### [address] #### UPE RAND, MG SERUM, B2-MICRO, SPE, KAPPA #### [facility] , Carbon dioxide, total [Moles /volume] in Serum or PlasmaOrdered By: Tatiana Douglas on 02-06-2024 CO2 [Moles/Vol] 27.1 mmol/L Normal 21.0-31.0 [facility] Comment on above: Performed By: #### C BC, CMP #### [address] #### UPE RAND, MG SERUM, B2-MICRO, SPE, KAPPA #### [facility] , Chloride [Moles/volume] in S ousmane or PlasmaOrdered By: Tatiana Douglas on 02-06-2024 Chloride [Moles/Vol] 105 mmol/L Normal 98-107 [facility] Comment on above: Performed By: #### C BC, CMP #### [place] [address] [place] #### UPE RAND, MG SERUM, B2-MICRO, SPE, KAPPA #### [facility] , Complete Blood Count Auto Di ffon 02-06-2024 Mean Corpuscular HGB Conc 33.3 g/dL Normal 32.0-35.0 [facility] Comment on above: Performed By: #### C BC, CMP #### [place] [address] [place] #### UPE RAND, MG SERUM, B2-MICRO, SPE, KAPPA #### [facility] , NRBC% 0.1 /100{WBC} Normal 0-0.5 [facility] Comment on above: Performed By: #### C BC, CMP #### [address] #### UPE RAND, MG SERUM, B2-MICRO, SPE, KAPPA #### [facility] , Comprehensive Metabolic Pane kourtney 02-06-2024 Albumin [Mass/Vol] 4.3 g/dL Normal 3.5-5.7 [facility] Comment on above: Performed By: #### C BC, CMP #### [address] #### UPE RAND, MG SERUM, B2-MICRO, SPE, KAPPA #### [facility] , Creatinine Clr Calc Pharmacy 53.31 Normal [facility] Comment on above: Result Comment: PERF ORMED BY: [place] [address] PATHOLOGIST CURING ROOM WORKER NOHEMY STEPHENS M.D. Performed By: #### C BC, CMP #### [address] #### UPE RAND, MG SERUM, B2-MICRO, SPE, KAPPA #### [facility] , GFR/1.73 sq M.predicted MDRD (S/P/Bld) [Vol rate/Area] mL/min/{1.73_m2} Normal [facility] Comment on above: Performed By: #### C BC, CMP #### [place] [address] [place] #### UPE RAND, MG SERUM, B2-MICRO, SPE, KAPPA #### [facility] , Comprehensive metabolic pane kourtney 02-06-2024 Albumin [Mass/Vol] 4.3 g/dL 3.5 - 5.7 g/dL [facility] Albumin/Globulin [Mass ratio] 1.5 {ratio} [facility] ALP [Catalytic activity/Vol] 86 U/L 34 - 104 U/L [facility] ALT [Catalytic activity/Vol] 15 U/L 7 - 52 U/L [facility] Anion gap [Moles/Vol] 13.1 mmol/L 6.0 - 15.0 meq/L [facility] AST [Catalytic activity/Vol] 25 U/L 13 - 39 U/L [facility] Bilirubin [Mass/Vol] 0.8 mg/dL 0.3 - 1 .0 mg/dL [facility] Calcium [Mass/Vol] 9.5 mg/dL 8.6 - 10. 3 mg/dL [facility] Chloride [Moles/Vol] 105 mmol/L 98 - 10 7 mmol/L [facility] CO2 [Moles/Vol] 27.1 mmol/L 21.0 - 31.0 mmol/L [facility] Creatinine (U) [Mass/Vol] 0.84 mg/dL 0.60 - 1.20 mg/dL [facility] CREATININE CLR CALC PHARMACY 53.31 [facility] ESTIMATED GFR mL/Min [facility] Globulin (S) [Mass/Vol] 2.9 g/dL N [facility] Glucose [Mass/Vol] 85 mg/dL 70 - 100 mg/dL [facility] Comment on above: Random Glucose Refer ence Range is dependent on time and content of last meal. Glucose of more than 200 mg/dL in a nonstressed, ambulatory subject supports the diagnosis of Diabetes Mellitus. ADA recommended reference range Interpretation and review of laboratory results Abnormal [facility] Potassium [Moles/Vol] 4.2 mmol/L 3.5 - 5.1 mmol/L [facility] Protein [Mass/Vol] 7.2 g/dL 6.4 - 8.9 g/dL [facility] Sodium [Moles/Vol] 141 mmol/L 136 - 145 mmol/L [facility] Urea nitrogen [Mass/Vol] 28 mg/dL High 7 - 25 mg/dL [facility] Creatinine [Mass/volume] in Serum or PlasmaOrdered By: Tatiana Douglas on 02-06-2024 Creatinine [Mass/Vol] 0.84 mg/dL Normal 0.60-1.20 [facility] Comment on above: Performed By: #### C BC, CMP #### [address] #### UPE RAND, MG SERUM, B2-MICRO, SPE, KAPPA #### [facility] , Eosinophils [#/volume] in Bl ood by Automated countOrdered By: Tatiana Douglas on 02-06-2024 Eosinophils (Bld) [#/Vol] 0.1 10*3/uL Normal 0.0-0.45 [facility] Comment on above: Performed By: #### C BC, CMP #### [address] #### UPE RAND, MG SERUM, B2-MICRO, SPE, KAPPA #### [facility] , Eosinophils/100 leukocytes i n Blood by Automated countOrdered By: Tatiana Douglas on 02-06-2024 Eosinophils/100 WBC (Bld) 2.6 % Normal . [facility] Comment on above: Performed By: #### C BC, CMP #### [place] [address] [place] #### UPE RAND, MG SERUM, B2-MICRO, SPE, KAPPA #### [facility] , Erythrocyte distribution wid th [Ratio] by Automated countOrdered By: Tatiana Douglas on 02-06-2024 Erythrocyte distribution width (RBC) [Ratio] 13.1 % Normal 11.9-15.3 [facility] Comment on above: Performed By: #### C BC, CMP #### [place] [address] [place] #### UPE RAND, MG SERUM, B2-MICRO, SPE, KAPPA #### [facility] , Erythrocytes [#/volume] in B lood by Automated countOrdered By: Tatiana Douglas on 02-06-2024 RBC (Bld) [#/Vol] 4.31 10*6/uL Normal 3.60-5.00 [facility] Comment on above: Performed By: #### C BC, CMP #### [place] [address] [place] #### UPE RAND, MG SERUM, B2-MICRO, SPE, KAPPA #### [facility] , Free K+L LT Chains, Qn, Son 02-06-2024 Free [place] Light Chains, S 26.2 mg/L High 3.3-19.4 [facility] Comment on above: Performed By: #### C BC, CMP #### [place] [address] [place] #### UPE RAND, MG SERUM, B2-MICRO, SPE, KAPPA #### [facility] , Free [place] Light Chains, S 80.3 mg/L High 5.7-26.3 [facility] Comment on above: Performed By: #### C BC, CMP #### [place] [address] [place] #### UPE RAND, MG SERUM, B2-MICRO, SPE, KAPPA #### [facility] , [place]/Lambda Ratio, S 0.33 Normal 0.26-1.65 [facility] Comment on above: Result Comment: Perf ormed at: CB - [facility] [place] [id number] Cna Per Diem: Kristian Castro PhD, Phone: [phone] PERFORMED BY: [place] [address] PATHOLOGIST CURING ROOM WORKER NOHEMY STEPHENS M.D. Performed By: #### C BC, CMP #### [place] [address] [place] #### UPE RAND, MG SERUM, B2-MICRO, SPE, KAPPA #### [facility] , Glucose [Mass/volume] in Ser um or PlasmaOrdered By: Tatiana Douglas on 02-06-2024 Glucose [Mass/Vol] 85 mg/dL Normal 70-100 [facility] Comment on above: ADA recommended refe rence rangeRandom Glucose Reference Range is dependent on time and content of last meal. Glucose of more than 200 mg/dL in a nonstressed, ambulatory subject supports the diagnosis of Diabetes Mellitus. Result Comment: [facility] Glucose Reference Range is dependent on time and content of last meal. Glucose of more than 200 mg/dL in a nonstressed, ambulatory subject supports the diagnosis of Diabetes Mellitus. ADA recommended reference range Performed By: #### C BC, CMP #### [address] #### UPE RAND, MG SERUM, B2-MICRO, SPE, KAPPA #### [facility] , Hematocrit [Volume Fraction] of Blood by Automated countOrdered By: Tatiana Douglas on 02-06-2024 Hematocrit (Bld) [Volume fraction] 39.8 % Normal 34.0-46.4 [facility] Comment on above: Performed By: #### C BC, CMP #### [address] #### UPE RAND, MG SERUM, B2-MICRO, SPE, KAPPA #### [facility] , Hemoglobin [Mass/volume] in BloodOrdered By: Tatiana Douglas on 02-06-2024 Hemoglobin (Bld) [Mass/Vol] 13.3 g/dL Normal 11.8-15.4 [facility] Comment on above: Performed By: #### C BC, CMP #### [address] #### UPE RAND, MG SERUM, B2-MICRO, SPE, KAPPA #### [facility] , Immunofixation,Serumon 02-05 Immunofixation, Serum Comment Critically abnormal . [facility] Comment on above: Result Comment: Immu nofixation shows IgG monoclonal protein with lambda light chain specificity. Performed By: #### C BC, CMP #### [place] [address] [place] #### UPE RAND, MG SERUM, B2-MICRO, SPE, KAPPA #### [facility] , Immunoglobulin A, Serum 79 mg/dL Normal 64-422 [facility] Comment on above: Performed By: #### C BC, CMP #### [facility] [address] [place] [address] [place] #### UPE RAND, MG SERUM, B2-MICRO, SPE, KAPPA #### [facility] , Immunoglobulin G 1276 mg/dL Normal 586-1602 [facility] Comment on above: Performed By: #### C BC, CMP #### [facility] [address] [place] [address] [place] #### UPE RAND, MG SERUM, B2-MICRO, SPE, KAPPA #### [facility] , Immunoglobulin M, Serum 46 mg/dL Normal 26-217 [facility] Comment on above: Result Comment: Perf ormed at: - [facility] [address] [id number] Cna Per Diem: Kristian Castro PhD, Phone: [phone] Performed By: #### C BC, CMP #### [place] [address] [place] #### UPE RAND, MG SERUM, B2-MICRO, SPE, KAPPA #### [facility] , Laboratory - Chemistry and C hemistry - challengeOrdered By: Tatiana Douglas on 02-06-2024 Protein [Mass/Vol] 1.0 g/dL High Not Observed [facility] Leukocytes [#/volume] correc annie for nucleated erythrocytes in Blood by Automated counOrdered By: Tatiana Douglas on 02-06-2024 WBC corrected for nucl RBC Auto (Bld) [#/Vol] 5.6 10*3/uL 3.8-11.6 [facility] Leukocytes [#/volume] in Blo od by Automated countOrdered By: Tatiana Douglas on 02-06-2024 WBC (Bld) [#/Vol] 5.6 10*3/uL Normal 3.8-11.6 [facility] Comment on above: Performed By: #### C BC, CMP #### [place] [address] [place] #### UPE RAND, MG SERUM, B2-MICRO, SPE, KAPPA #### [facility] , Lymphocytes [#/volume] in Bl ood by Automated countOrdered By: Tatiana Douglas on 02-06-2024 Lymphocytes (Bld) [#/Vol] 0.9 10*3/uL Low 1.00-4.8 [facility] Comment on above: Performed By: #### C BC, CMP #### [place] [address] [place] #### UPE RAND, MG SERUM, B2-MICRO, SPE, KAPPA #### [facility] , Lymphocytes/100 leukocytes i n Blood by Automated countOrdered By: Tatiana Douglas on 02-06-2024 Lymphocytes/100 WBC (Bld) 16.8 % Normal . [facility] Comment on above: Performed By: #### C BC, CMP #### [place] [address] [place] #### UPE RAND, MG SERUM, B2-MICRO, SPE, KAPPA #### [facility] , MCH [Entitic mass] by Automa annie countOrdered By: Tatiana Douglas on 02-06-2024 MCH (RBC) [Entitic mass] 30.8 pg Normal 24.7-34.3 [facility] Comment on above: Performed By: #### C BC, CMP #### [place] [address] [place] #### UPE RAND, MG SERUM, B2-MICRO, SPE, KAPPA #### [facility] , MCHC Auto (RBC) [Mass/Vol]Or dered By: Tatiana Douglas on 02-06-2024 MCHC (RBC) [Mass/Vol] 33.3 g/dL 32.0-35.0 [facility] MCV [Entitic volume] by Auto mated countOrdered By: Tatiana Douglas on 02-06-2024 MCV (RBC) [Entitic vol] 92.5 fL Normal 80-100 [facility] Comment on above: Performed By: #### C BC, CMP #### [place] [address] [place] #### UPE RAND, MG SERUM, B2-MICRO, SPE, KAPPA #### [facility] , Monocytes [#/volume] in Bloo d by Automated countOrdered By: Tatiana Douglas on 02-06-2024 Monocytes (Bld) [#/Vol] 0.5 10*3/uL Normal 0.0-0.8 [facility] Comment on above: Performed By: #### C BC, CMP #### [place] [address] [place] #### UPE RAND, MG SERUM, B2-MICRO, SPE, KAPPA #### [facility] , Monocytes/100 leukocytes in Blood by Automated countOrdered By: Tatiana Douglas on 02-06-2024 Monocytes/100 WBC (Bld) 9.7 % Normal . [facility] Comment on above: Performed By: #### C BC, CMP #### [place] [address] [place] #### UPE RAND, MG SERUM, B2-MICRO, SPE, KAPPA #### [facility] , Neutrophils [#/volume] in Bl ood by Automated countOrdered By: Tatiana Douglas on 02-06-2024 Neutrophils (Bld) [#/Vol] 3.9 10*3/uL Normal 1.8-7.7 [facility] Comment on above: Performed By: #### C BC, CMP #### [place] [address] [place] #### UPE RAND, MG SERUM, B2-MICRO, SPE, KAPPA #### [facility] , Neutrophils/100 leukocytes i n Blood by Automated countOrdered By: Tatiana Douglas on 02-06-2024 Neutrophils/100 WBC (Bld) 69.9 % Normal . [facility] Comment on above: Performed By: #### C BC, CMP #### [facility] [address] [place] [address] [place] #### UPE RAND, MG SERUM, B2-MICRO, SPE, KAPPA #### [facility] , No Panel InformationOrdered By: Tatiana Douglas on 02-06-2024 Estimated GFR (CKD-EPI) > 60.0 mL/Min [facility] Creatinine Clearance (Chem 53.31 [facility] Protein Electrophoresis Note Comment . [facility] Comment on above: Protein electrophore sis scan will follow via computer,mail, or farmworker general delivery.Performed at: [facility] [address] [id number] Director: Kristian Castro PhD, Phone: [phone] Urine Random Prot Electrophor Note Comment . [facility] Comment on above: Protein electrophore sis scan will follow via computer,mail, or farmworker general delivery.Performed at: [facility] [id number] Director: Kristian Castro PhD, Phone: [phone] Nucleated erythrocytes [Pres ence] in Blood by Automated countOrdered By: Tatiana Douglas on 02-06-2024 Nucleated RBC Auto Ql (Bld) 0.1 /100{WBC} 0-0.5 [facility] Platelet mean volume [Entiti c volume] in Blood by Automated countOrdered By: Tatiana Douglas on 02-06-2024 Platelet mean volume (Bld) [Entitic vol] 9.9 fL Normal 6.3-10.7 [facility] Comment on above: Performed By: #### C BC, CMP #### [facility] [address] [place] [address] [place] #### UPE RAND, MG SERUM, B2-MICRO, SPE, KAPPA #### [facility] , Platelets [#/volume] in Bloo d by Automated countOrdered By: Tatiana Douglas on 02-06-2024 Platelets (Bld) [#/Vol] 206 10*3/uL Normal 150-450 [facility] Comment on above: Performed By: #### C BC, CMP #### [facility] [address] [place] [address] [place] #### UPE RAND, MG SERUM, B2-MICRO, SPE, KAPPA #### [facility] , Potassium [Moles/volume] in Serum or PlasmaOrdered By: Tatiana Douglas on 02-06-2024 Potassium [Moles/Vol] 4.2 mmol/L Normal 3.5-5.1 [facility] Comment on above: Performed By: #### C BC, CMP #### [address] #### UPE RAND, MG SERUM, B2-MICRO, SPE, KAPPA #### [facility] , Protein Electro, Random Urin balbir 02-06-2024 Albumin, Urine 25.3 % Normal . [facility] Comment on above: Performed By: #### C BC, CMP #### [address] #### UPE RAND, MG SERUM, B2-MICRO, SPE, KAPPA #### [facility] , Nksnt-7-Vmdghzks, Urine 3.4 % Normal . [facility] Comment on above: Performed By: #### C BC, CMP #### [place] [address] [place] #### UPE RAND, MG SERUM, B2-MICRO, SPE, KAPPA #### [facility] , Engge-8-Wnjovbeh, Urine 7.9 % Normal . [facility] Comment on above: Performed By: #### C BC, CMP #### [place] [address] [place] #### UPE RAND, MG SERUM, B2-MICRO, SPE, KAPPA #### [facility] , Beta Globulin, Urine 48.0 % Normal . [facility] Comment on above: Performed By: #### C BC, CMP #### [place] [address] [place] #### UPE RAND, MG SERUM, B2-MICRO, SPE, KAPPA #### [facility] , Gamma Globulin, Urine 15.3 % Normal . [facility] Comment on above: Performed By: #### C BC, CMP #### [place] [address] [place] #### UPE RAND, MG SERUM, B2-MICRO, SPE, KAPPA #### [facility] , M-David % Not Observed Normal Not Observed [facility] Comment on above: Performed By: #### C BC, CMP #### [address] #### UPE RAND, MG SERUM, B2-MICRO, SPE, KAPPA #### [facility] , Please Note: Comment Normal . [facility] Comment on above: Result Comment: Prot ein electrophoresis scan will follow via computer, mail, or farmworker general delivery. Performed at: [address] [id number] Cna Per Diem: Kristian Castro PhD, Phone: [phone] PERFORMED BY: [place] [address] PATHOLOGIST CURING ROOM WORKER NOHEMY STEPHENS M.D. Performed By: #### C BC, CMP #### [address] #### UPE RAND, MG SERUM, B2-MICRO, SPE, KAPPA #### [facility] , Protein Electrophoresis, Ser umon 02-06-2024 Ngspz-2-Nsudcfze 0.3 g/dL Normal 0.0-0.4 [facility] Comment on above: Performed By: #### C BC, CMP #### [place] [address] [place] #### UPE RAND, MG SERUM, B2-MICRO, SPE, KAPPA #### [facility] , Vgcwr-4-Vjctuqhf 0.8 g/dL Normal 0.4-1.0 [facility] Comment on above: Performed By: #### C BC, CMP #### [place] [address] [place] #### UPE RAND, MG SERUM, B2-MICRO, SPE, KAPPA #### [facility] , Beta Globulin 1.0 g/dL Normal 0.7-1.3 [facility] Comment on above: Performed By: #### C BC, CMP #### [place] [address] [place] #### UPE RAND, MG SERUM, B2-MICRO, SPE, KAPPA #### [facility] , Gamma Globulin 1.2 g/dL Normal 0.4-1.8 [facility] Comment on above: Performed By: #### C BC, CMP #### [address] #### UPE RAND, MG SERUM, B2-MICRO, SPE, KAPPA #### [facility] , M-David 1.0 g/dL High Not Observed [facility] Comment on above: Performed By: #### C BC, CMP #### [address] #### UPE RAND, MG SERUM, B2-MICRO, SPE, KAPPA #### [facility] , SPE-Note Comment Normal . [facility] Comment on above: Result Comment: Prot ein electrophoresis scan will follow via computer, mail, or farmworker general delivery. Performed at: [facility] [address] [id number] Cna Per Diem: Kristian Castro PhD, Phone: [phone] Performed By: #### C BC, CMP #### [place] [address] [place] #### UPE RAND, MG SERUM, B2-MICRO, SPE, KAPPA #### [facility] , Protein [Mass/volume] in Ser um or PlasmaOrdered By: Tatiana Douglas on 02-06-2024 Protein [Mass/Vol] 7.2 g/dL Normal 6.4-8.9 [facility] Comment on above: Performed By: #### C BC, CMP #### [facility] [address] [place] [address] [place] #### UPLilliam RAND, MG SERUM, B2-MICRO, SPE, KAPPA #### [facility] , Serum free kappa light chain measurementOrdered By: Tatiana Douglas on 02-06-2024 Immunoglobulin light chains.kappa.free (S) [Mass/Vol] 26.2 mg/L High 3.3-19.4 [facility] Serum globulin measurement ( mass/volume)Ordered By: Tatiana Douglas on 02-06-2024 Globulin (S) [Mass/Vol] 3.2 g/dL Normal 2.2-3.9 [facility] Comment on above: Performed By: #### C BC, CMP #### [facility] [address] [place] [address] [place] #### LLOYD RAND, MG SERUM, B2-MICRO, SPE, KAPPA #### [facility] , Serum globulin measurement b y calculation (mass/volume)Ordered By: Tatiana Douglas on 02-06-2024 Globulin (S) [Mass/Vol] 2.9 g/dL Normal [facility] Comment on above: Performed By: #### C BC, CMP #### [place] [address] [place] #### UPE RAND, MG SERUM, B2-MICRO, SPE, KAPPA #### [facility] , Serum immunoglobulin free ka ppa light chains/immunoglobulin free lambda light chainsOrdered By: Tatiana Douglas on 02-06-2024 Immunoglobulin light chains.kappa.free/Immun oglobulin light chains.lambda.free (S) [Mass ratio] 0.33 0.26-1.65 [facility] Comment on above: Performed at: [address] [id number] Director: Kristian aCstro PhD, Phone: [phone] Serum or plasma IgA measurem ent (mass/volume)Ordered By: Tatiana Douglas on 02-06-2024 IgA [Mass/Vol] 79 mg/dL 64-422 [facility] Serum or plasma IgG measurem ent (mass/volume)Ordered By: Tatiana Douglas on 02-06-2024 IgG [Mass/Vol] 1276 mg/dL 586-1602 [facility] Serum or plasma IgM measurem ent (mass/volume)Ordered By: Tatiana Douglas on 02-06-2024 IgM [Mass/Vol] 46 mg/dL 26-217 [facility] Comment on above: Performed at: [place] [id number] Director: Kristian Castro PhD, Phone: [phone] Serum or plasma albumin emy urement (mass/volume)Ordered By: Tatiana Douglas on 02-06-2024 Albumin [Mass/Vol] 3.7 g/dL Normal 2.9-4.4 [facility] Comment on above: Performed By: #### C BC, CMP #### [facility] [address] [place] [address] #### UPE RAND, MG SERUM, B2-MICRO, SPE, KAPPA #### [facility] , Serum or plasma albumin/glob ulin mass ratioOrdered By: Tatiana Douglas on 02-06-2024 Albumin/Globulin [Mass ratio] 1.5 {ratio} Normal [facility] Comment on above: Performed By: #### C BC, CMP #### [facility] [address] [place] [address] [place] #### UPE RAND, MG SERUM, B2-MICRO, SPE, KAPPA #### [facility] , Albumin/Globulin [Mass ratio] 1.2 {ratio} Normal 0.7-1.7 [facility] Comment on above: Performed By: #### C BC, CMP #### [facility] [address] [place] [address] [place] #### UPE RAND, MG SERUM, B2-MICRO, SPE, KAPPA #### [facility] , Serum or plasma alpha 1 glob ulin measurement by electrophoresis (mass/volume)Ordered By: Tatiana Douglas on 02-06-2024 Alpha 1 globulin Elph [Mass/Vol] 0.3 g/dL 0.0-0.4 [facility] Serum or plasma alpha 2 glob ulin measurement by electrophoresis (mass/volume)Ordered By: Tatiana Douglas on 02-06-2024 Alpha 2 globulin Elph [Mass/Vol] 0.8 g/dL 0.4-1.0 [facility] Serum or plasma anion gap de terminationOrdered By: Tatiana Douglas on 02-06-2024 Anion gap [Moles/Vol] 13.1 mmol/L Normal 6.0-15.0 [facility] Comment on above: Performed By: #### C BC, CMP #### [address] #### UPE RAND, MG SERUM, B2-MICRO, SPE, KAPPA #### [facility] , Serum or plasma beta globuli n measurement by electrophoresis (mass/volume)Ordered By: Tatiana Douglas on 02-06-2024 Beta globulin Elph [Mass/Vol] 1.0 g/dL 0.7-1.3 [facility] Serum or plasma zsak-5-vaind globulin measurement (mass/volume)Ordered By: Tatiana Douglas on 02-06-2024 Zjfq-6-Deyvitndyjbjm [Mass/Vol] 2.3 ug/mL 0.6-2.4 [facility] Comment on above: Siemens Immulite 200 0 Immunochemiluminometric assay (ICMA)Values obtained with different assay methods or kits cannotbe used interchangeably. Results cannot be interpreted asabsolute evidence of the presence or absence of malignantdisease.Performed at: - [facility] [id number] Director: Camila Mckeon MD, Phone: [phone] Serum or plasma gamma globul in measurement by electrophoresis (mass/volume)Ordered By: Tatiana Douglas on 02-06-2024 Gamma globulin Elph [Mass/Vol] 1.2 g/dL 0.4-1.8 [facility] Serum or plasma immunoglobul in free lambda light chains measurement (mass/volume)Ordered By: Tatiana Douglas on 02-06-2024 Immunoglobulin light chains.lambda.free [Mass/Vol] 80.3 mg/L High 5.7-26.3 [facility] Serum total protein measurem entOrdered By: Tatiana Douglas on 02-06-2024 Protein [Mass/Vol] 6.9 g/dL Normal 6.0-8.5 [facility] Comment on above: Performed By: #### C BC, CMP #### [facility] [address] [place] [address] [place] #### UPE RAND, MG SERUM, B2-MICRO, SPE, KAPPA #### [facility] , Sodium [Moles/volume] in Ser um or PlasmaOrdered By: Tatiana Douglas on 02-06-2024 Sodium [Moles/Vol] 141 mmol/L Normal 136-145 [facility] Comment on above: Performed By: #### C BC, CMP #### [facility] [address] [place] [address] [place] #### UPE RAND, MG SERUM, B2-MICRO, SPE, KAPPA #### [facility] , Urea nitrogen [Mass/volume] in Serum or PlasmaOrdered By: Tatiana Douglas on 02-06-2024 Urea nitrogen [Mass/Vol] 28 mg/dL High 7-25 [facility] Comment on above: Performed By: #### C BC, CMP #### [facility] [address] [place] [address] [place] #### UPE RAND, MG SERUM, B2-MICRO, SPE, KAPPA #### [facility] , Urine alpha 1 globulin/total protein by electrophoresisOrdered By: Tatiana Douglas on 02-06-2024 Alpha 1 globulin Elph (U) [Mass fraction] 3.4 % . [facility] Urine alpha 2 globulin/total protein ratio by electrophoresisOrdered By: Tatiana Douglas on 02-06-2024 Alpha 2 globulin Elph (U) [Mass fraction] 7.9 % . [facility] Urine beta globulin measurem ent by electrophoresis (mass/volume)Ordered By: Tatiana Douglas on 02-06-2024 Beta globulin Elph (U) [Mass/Vol] 48.0 % . [facility] Urine protein measurement (m ass/volume)Ordered By: Tatiana Douglas on 02-06-2024 Protein (U) [Mass/Vol] 4.2 mg/dL Normal Not Estab. [facility] Comment on above: Performed By: #### C BC, CMP #### [facility] [address] [place] [address] [place] #### UPE RAND, MG SERUM, B2-MICRO, SPE, KAPPA #### [facility] , Ambulatory Visit Summaryon 1 03-08-2023 Ambulatory Visit Summary Ambulatory Visit Summary SINA PEREZ :1950 Visit Date:12/27/2023 Ambulatory Visit Instructions Your Diagnosis Encounter for annual wellness visit (AWV) in Medicare patient MGUS (monoclonal gammopathy of unknown significance) Hypoparathyroidism Hypertension Hyperlipidemia Other problems related to lifestyle Obesity due to excess calories Your Care Team Attending Physician - Jean Hair MD. Primary Care Physician - Jean Hair MD. This Is Your Medications List acetaminophen atorvastatin [...] 1% cream) naproxen potassium chloride (Potassium Chloride (Cto-Mmgd-Edu 10) 10 mEq oral tablet, extended release) [...] Follow-Up Appointments Sunday 9:15 AM EDT With: Alejandro BRADFORD, Jean Rainey Where: [address] [address]24 9:30 AM EDT With: Where: [address] [address]- You Need to Complete the Following ALT, [...] for pain Unchanged potassium chloride (Potassium Chloride (Nqf-Wtog-Cnh 10) 10 mEq oral tablet, extended release) 1 Tablets By Mouth Every day Allergies Demerol (Nausea) Neurontin (Unknown) Pe (more content not included)... Normal [facility] Family Medicine Office/Clini c Noteon 01-07-2024 Family Medicine [...] : 74 bpm SpO2 : 96 % Mana Canas 12/27/2023 13:43 EDT Chief Complaint : Medicare [...] : leg and back pain Mana Canas - 12/27/2023 13:10 EDT Hearing and Vision Screening FT FT Whisper Test Comments : no issue or concern Vision Screen Comments : no issue or concern Mana Canas - 12/27/2023 13:43 EDT Advance Directive FT Advance [...] 07/24/2022 7:46 EDT - Roopa Granda LPN 2019 ; Last Reviewed Dt/Tm: 12/27/2023 13:45:03 EDT Anesthesia Minutes: 0 ; Procedure Name: Parathyroidectomy ; Procedure Minutes: 0 ; Comments: 07/24/2022 7:47 EDT - Roopa Granda LPN 2018 ; Last Reviewed Dt/Tm: 12/27/2023 13:45:03 EDT Anesthesia Minutes: 0 ; Procedure Name: Biopsy of thyroid ; Procedure Minutes: 0 ; Comments: 07/24/2022 13:26 EDT - Roopa Granda LPN X2 ; Last Reviewed Dt/Tm: 12/27/2023 13:45:03 EDT Anesthesia Minutes: 0 ; Procedure Name: Bone graft ; Procedure Minutes: 0 ; Comments: 07/24/2022 13:27 EDT Roopa Wallace LPN rt hip to right wrist ; Last Reviewed Dt/Tm: 12/27/2023 13:45:03 EDT Anesthesia Minutes: 0 ; Procedure Name: Cataract ; Procedure Minutes: 0 ; Comments: 07/24/2022 13:26 EDT - Jesus Alberto TIWARI Roopa L left eye ; Last Reviewed Dt/Tm: 12/27/2023 13:45:03 EDT Anesthesia Minutes: 0 ; Procedure Name: Biopsy of breast ; Procedure Minutes: 0 ; Comments: 07/24/2022 13:26 EDT - Jesus Alberto TIWARI Roopa L X2 ; Last Reviewed Dt/Tm: 12/27/2023 [...] 0 ; Comments: 07/24/2022 13:28 EDT - Elinor Granda LPNith L right thumb then removal of plate and screws right wrist ; Last Reviewed Dt/Tm: 12/27/2023 13:45:03 EDT Anesthesia Minutes: 0 ; Procedure Name: Bone marrow biopsy ; Procedure Minutes: 0 ; Comments: 07/24/2022 13:28 EDT - Elinor Granda LPNith L 2016 ; Last Reviewed Dt/Tm: 12/27/2023 13:45:03 EDT Anesthesia Minutes: 0 ; Procedure Name: [facility] BSO - Total abdominal hysterectomy and bilateral salpingo-oophorectomy ; Procedure Minutes: 0 ; Last Reviewed Dt/Tm: 12/27/2023 13:45:03 EDT Anesthesia Minutes: 0 ; Procedure Name: Mohs surgery ; Procedure Minutes: 0 ; Comments: 12/25/2022 13:11 EDT - Abiodun Hodges facial/ left cheek, September 2022, Dr. Palumbo [...] Positive Gr (more content not included)... Normal [facility] Comment on above: Result Comment: Elec tronically Signed By: Jean Hair MD\.br\Date and Time Signed: 01/07/24 12:45 EST\.br\Electronically Co-Signed By: Mana Canas\.br\Date and Time Co-Signed: 12/27/23 14:00 EDT .Interpretation:on HCV Ab IA Ql Comment Invalid Interpretation Code [facility] Comment on above: Result Comment: Not infected with HCV unless early or acute infection is suspected (which may be delayed in an immunocompromised individual), or other evidence exists to indicate HCV infection. Performed at: [facility] [id number] PhD Gloria Townsend Performed By: #### 2 [id number] #### [facility] [address] [place] [address] HCV Antibody RFX to Quant PC Buck 01-02-2024 HCV IgG IA Ql Non-Reactive Invalid Interpretation Code Non Reactive [facility] Comment on above: Result Comment: Perf ormed at: [facility] [address] [id number] PhD Gloria Townsend Performed By: #### 2 [id number] #### [facility] [address] [place] [address] CHEMISTRYOrdered By: SYSTEM SYSTEM on 12-31-2023 Albumin [...] Urea nitrogen/Creatinine [Mass ratio] 29 mg/mg High - Remisol Chem CMPon 12-31-2023 Albumin [Mass/Vol] 4.1 g/dL Normal 3.3-5.0 [facility] Comment on above: Performed By: #### 2 [id number] #### [facility] [address] [place] [address] Albumin/Globulin (S) [Mass conc ratio] 1.5 Normal 1.1-2.2 [facility] Comment on above: Performed By: #### 2 [id number] #### [facility] [address] [place] [address] ALP [Catalytic activity/Vol] 80 Int._Unit/L Normal 21-98 [facility] Comment on above: Performed By: #### 2 [id number] #### [facility] [address] [place] [address] ALT No additional P-5'-P [Catalytic activity/Vol] 17 Int._Unit/L Normal 6-46 [facility] Comment on above: Performed By: #### 2 [id number] #### [facility] [address] [place] [address] Anion gap [Moles/Vol] 9 mmol/L Normal 6-16 [facility] Comment on above: Performed By: #### 2 [id number] #### [facility] [address] [place] [address] AST [Catalytic activity/Vol] 28 Int._Unit/L Normal 5-43 [facility] Comment on above: Performed By: #### 2 [id number] #### [facility] [address] [place] [address] Bilirubin [Mass/Vol] 0.9 mg/dL Normal 0.0-1.1 [facility] Comment on above: Performed By: #### 2 [id number] #### [facility] [address] [place] [address] Calcium [Mass/Vol] 10.2 mg/dL Normal 8.9-11.1 [facility] Comment on above: Performed By: #### 2 [id number] #### [facility] [address] [place] [address] Chloride [Moles/Vol] 106 mmol/L Normal 101-111 [facility] Comment on above: Performed By: #### 2 [id number] #### [facility] [address] [place] [address] CO2 [Moles/Vol] 29 mmol/L Normal 21-31 [facility] Comment on above: Performed By: #### 2 [id number] #### [facility] [address] [place] [address] Creatinine [Mass/Vol] 0.9 mg/dL Normal 0.5-1.3 [facility] Comment on above: Performed By: #### 2 [id number] #### [facility] [address] [place] [address] Globulin (S) [Mass/Vol] 2.7 g/dL Normal 1.4-4.0 [facility] Comment on above: Performed By: #### 2 [id number] #### [facility] [address] [place] [address] Glucose [Mass/Vol] 84 mg/dL Normal 55-199 [facility] Comment on above: Performed By: #### 2 [id number] #### [facility] [address] [place] [address] Potassium [Moles/Vol] 4.1 mmol/L Normal 3.5-5.3 [facility] Comment on above: Performed By: #### 2 [id number] #### [facility] [address] [place] [address] Protein [Mass/Vol] 6.8 g/dL Normal 6.0-7.8 [facility] Comment on above: Performed By: #### 2 [id number] #### [facility] [address] [place] [address] Sodium [Moles/Vol] 140 mmol/L Normal 135-145 [facility] Comment on above: Performed By: #### 2 [id number] #### [facility] [address] [place] [address] Urea nitrogen [Mass/Vol] 26 mg/dL High 5-21 [facility] Comment on above: Performed By: #### 2 [id number] #### [facility] [address] [place] [address] Urea nitrogen/Creatinine [Mass ratio] 29 No Units High 10- [facility] Comment on above: Performed By: #### 2 [id number] #### [facility] [address] [place] [address] Lipid Panelon 12-31-2023 Cholesterol [Mass/Vol] 159 mg/dL Normal 120-200 [facility] Comment on above: Performed By: #### 2 [id number] #### [facility] [address] [place] [address] Cholesterol in HDL [Mass/Vol] 76 mg/dL Invalid Interpretation Code [facility] Comment on above: Result Comment: '>= 60 LOW RISK' '<= 40 HIGH RISK' Performed By: #### 2 [id number] #### [facility] [address] [place] [address] Cholesterol in LDL [Mass/Vol] 66 mg/dL Normal <=129 [facility] Comment on above: Performed By: #### 2 [id number] #### [facility] [address] [place] [address] Cholesterol in VLDL [Mass/Vol] 13 mg/dL Normal 7-40 [facility] Comment on above: Performed By: #### 2 [id number] #### [facility] [address] [place] [address] Triglyceride [Mass/Vol] 66 mg/dL Normal <=149 [facility] Comment on above: Performed By: #### 2 [id number] #### [facility] [address] [place] [address] TSH With T4fr Reflexon 12-30 TSH Qn 0.68 m[IU]/L Normal 0.34-5.60 [facility] Comment on above: Performed By: #### 1 [id number] #### [facility] [address] [place] [address] eGFRon 12-31-2023 eGFR 68 mL/min/1.73 m2 Normal >=59 [facility] Comment on above: Performed By: #### 1 [id number] #### [facility] [address] [place] [address] Basophil percentageOrdered B y: Tatiana Douglas on 08-22-2023 Basophil percentage 100 ug/dL 80-158 [facility] Comment on above: This test was develo ped and its performance characteristicsdetermined by [facility]. It has not been cleared orapproved by the Food and Drug Administration. Detection Limit = 5Performed at: [facility] [id number] Director: Camila Mckeon MD, Phone: [phone] Folate [Mass/volume] in Seru m or PlasmaOrdered By: Tatiana Douglas on 08-22-2023 Folate [Mass/Vol] 17.8 ng/mL >5.9 [facility] Comment on above: Folate reference ran ge: >5.9 ng/mlThe WHO technical consultation on folate and vitamin [id number] has determined that folate concentrations lessthan 4 ng/ml are considered deficient. Serum or plasma vojh-[id number] globulin measurement (mass/volume)Ordered By: Tatiana Douglas on 08-22-2023 Ewsd-0-Diwbpvxhcaqgg [Mass/Vol] 2.3 ug/mL 0.6-2.4 [facility] Comment on above: Siemens Immulite 200 0 Immunochemiluminometric assay (ICMA)Values obtained with different assay methods or kits cannotbe used interchangeably. Results cannot be interpreted asabsolute evidence of the presence or absence of malignantdisease.Performed at: - [facility] [id number] Director: Camila Mckeon MD, Phone: [phone] Serum or plasma ceruloplasmi n measurement (mass/volume)Ordered By: Tatiana Douglas on 08-22-2023 Ceruloplasmin [Mass/Vol] 22.1 mg/dL 19.0-39.0 [facility] Comment on above: Performed at: [facility] [address] [id number] Director: Kristian Castro PhD, Phone: [phone] Vitamin B12 ser/plasOrdered By: Tatiana Douglas on 08-22-2023 Cobalamin (Vitamin B12) [Mass/Vol] 284 pg/mL 180-914 [facility] Activated partial thrombopla stin time (aPTT) in platelet poor plasma by coagulation aOrdered By: Tatiana Douglas on 08-08-2023 aPTT Coag (PPP) [Time] 32.9 s 25.1-36.5 [facility] Comment on above: A hematocrit value g reater than 55% may lead to inaccurate results in coagulation testing. Patients having hematocrit values >55% require a special collection tube for coagulation studies. Please contact the laboratory at [phone] for redraw instructions. Basophils Auto (Bld) [#/Vol] Ordered By: Tatiana Douglas on 08-08-2023 Basophils (Bld) [#/Vol] 0.0 10*3/uL 0.0-0.2 [facility] Basophils/100 WBC Auto (Bld) Ordered By: Tatiana Douglas on 08-08-2023 Basophils/100 WBC (Bld) 0.8 % . [facility] Eosinophils Auto (Bld) [#/Vo l]Ordered By: Tatiana Douglas on 08-08-2023 Eosinophils (Bld) [#/Vol] 0.1 10*3/uL 0.0-0.45 [facility] Eosinophils/100 WBC Auto (Bl d)Ordered By: Tatiana Douglas on 08-08-2023 Eosinophils/100 WBC (Bld) 2.2 % . [facility] Erythrocyte distribution wid th Auto (RBC) [Ratio]Ordered By: Tatiana Douglas on 08-08-2023 Erythrocyte distribution width (RBC) [Ratio] 13.6 % 11.9-15.3 [facility] Hematocrit Auto (Bld) [Volum e fraction]Ordered By: Tatiana Douglas on 08-08-2023 Hematocrit (Bld) [Volume fraction] 39.8 % 34.0-46.4 [facility] Hemoglobin [Mass/volume] in BloodOrdered By: Tatiana Douglas on 08-08-2023 Hemoglobin (Bld) [Mass/Vol] 13.4 g/dL 11.8-15.4 [facility] INR in Platelet poor plasma by Coagulation assayOrdered By: Tatiana Douglas on 08-08-2023 INR Coag (PPP) [Relative time] 0.9 {INR} [facility] Comment on above: INR Therapeutic Rang e A) Pre- and Peroperative OAT started two weeks before surgery. NOT HIP SURGERY: 1.5 - 2.5 HIP SURGERY: 2 - 3B) Primary and secondary prevention of venous THROMBOSIS: 2 - 3C) Active venous thrombosis, pulmonary embolismand prevention of recurrent venous thrombosis: 2 - 3D) Prevention of arterial thromboembolismincluding patients with mechanical heart valves: 3 - 4.5 Leukocytes [#/volume] correc annie for nucleated erythrocytes in Blood by Automated counOrdered By: Tatiana Douglas on 08-08-2023 WBC corrected for nucl RBC Auto (Bld) [#/Vol] 5.7 10*3/uL 3.8-11.6 [facility] Lymphocytes Auto (Bld) [#/Vo l]Ordered By: Tatiana Douglas on 08-08-2023 Lymphocytes (Bld) [#/Vol] 1.4 10*3/uL 1.00-4.8 [facility] Lymphocytes/100 WBC Auto (Bl d)Ordered By: Tatiana Douglas on 08-08-2023 Lymphocytes/100 WBC (Bld) 25.0 % . [facility] MCH Auto (RBC) [Entitic mass ]Ordered By: Tatiana Douglas on 08-08-2023 MCH (RBC) [Entitic mass] 30.5 pg 24.7-34.3 [facility] MCHC Auto (RBC) [Mass/Vol]Or dered By: Tatiana Douglas on 08-08-2023 MCHC (RBC) [Mass/Vol] 33.6 g/dL 32.0-35.0 [facility] MCV Auto (RBC) [Entitic vol] Ordered By: Tatiana Douglas on 08-08-2023 MCV (RBC) [Entitic vol] 90.9 fL 80-100 [facility] Monocytes Auto (Bld) [#/Vol] Ordered By: Tatiana Douglas on 08-08-2023 Monocytes (Bld) [#/Vol] 0.5 10*3/uL 0.0-0.8 [facility] Monocytes/100 WBC Auto (Bld) Ordered By: Tatiana Douglas on 08-08-2023 Monocytes/100 WBC (Bld) 9.4 % . [facility] Neutrophils Auto (Bld) [#/Vo l]Ordered By: Tatiana Douglas on 08-08-2023 Neutrophils (Bld) [#/Vol] 3.6 10*3/uL 1.8-7.7 [facility] Neutrophils/100 WBC Auto (Bl d)Ordered By: Tatiana Douglas on 08-08-2023 Neutrophils/100 WBC (Bld) 62.6 % . [facility] Nucleated erythrocytes [Pres ence] in Blood by Automated countOrdered By: Tatiana Douglas on 08-08-2023 Nucleated RBC Auto Ql (Bld) 0.1 /100{WBC} 0-0.5 [facility] Platelet mean volume Auto (B ld) [Entitic vol]Ordered By: Tatiana Douglas on 08-08-2023 Platelet mean volume (Bld) [Entitic vol] 9.4 fL 6.3-10.7 [facility] Platelets Auto (Bld) [#/Vol] Ordered By: Tatiana Douglas on 08-08-2023 Platelets (Bld) [#/Vol] 183 10*3/uL 150-450 [facility] Prothrombin time (PT)Ordered By: Tatiana Douglas on 08-08-2023 PT Coag (PPP) [Time] 10.7 s 9.0-12.9 [facility] Comment on above: A hematocrit value g reater than 55% may lead to inaccurate results in coagulation testing. Patients having hematocrit values >55% require a special collection tube for coagulation studies. Please contact the laboratory at [phone] for redraw instructions. RBC Auto (Bld) [#/Vol]Ordere d By: Tatiana Douglas on 08-08-2023 RBC (Bld) [#/Vol] 4.38 10*6/uL 3.60-5.00 [facility] WBC Auto (Bld) [#/Vol]Ordere d By: Tatiana Douglas on 08-08-2023 WBC (Bld) [#/Vol] 5.7 10*3/uL 3.8-11.6 [facility] Alanine aminotransferase [En zymatic activity/volume] in Serum or PlasmaOrdered By: Tatiana Douglas on 07-18-2023 ALT [Catalytic activity/Vol] 15 U/L 7-52 [facility] Albumin [Mass/volume] in Ser um or PlasmaOrdered By: Tatiana Douglas on 07-18-2023 Albumin [Mass/Vol] 3.9 g/dL 2.9-4.4 [facility] Albumin [Mass/volume] in Ser um or Plasma by Bromocresol green (BCG) dye binding methoOrdered By: Tatiana Douglas on 07-18-2023 Albumin BCG dye [Mass/Vol] 4.4 g/dL 3.5-5.7 [facility] Albumin/Protein.total in 24 hour Urine by ElectrophoresisOrdered By: Tatiana Douglas on 07-18-2023 Albumin Elph (24H U) [Mass fraction] 23.6 % . [facility] Alkaline phosphatase [Enzyma tic activity/volume] in Serum or PlasmaOrdered By: Tatiana Douglas on 07-18-2023 ALP [Catalytic activity/Vol] 84 U/L 34-104 [facility] Aspartate aminotransferase [ Enzymatic activity/volume] in Serum or PlasmaOrdered By: Tatiana Douglas on 07-18-2023 AST [Catalytic activity/Vol] 23 U/L 13-39 [facility] Basophils Auto (Bld) [#/Vol] Ordered By: Tatiana Douglas on 07-18-2023 Basophils (Bld) [#/Vol] 0.0 10*3/uL 0.0-0.2 [facility] Basophils/100 WBC Auto (Bld) Ordered By: Tatiana Douglas on 07-18-2023 Basophils/100 WBC (Bld) 0.7 % . [facility] Bilirubin.total [Mass/volume ] in Serum or PlasmaOrdered By: Tatiana Douglas on 07-18-2023 Bilirubin [Mass/Vol] 0.7 mg/dL 0.3-1.0 [facility] Niland cells [Presence] in Blo od by Light microscopyOrdered By: Tatiana Douglas on 07-18-2023 Edwina cells LM Ql (Bld) Slight [facility] Calcium [Mass/volume] in Ser um or PlasmaOrdered By: Tatiana Douglas on 07-18-2023 Calcium [Mass/Vol] 9.7 mg/dL 8.6-10.3 [facility] Carbon dioxide, total [Moles /volume] in Serum or PlasmaOrdered By: Tatiana Douglas on 07-18-2023 CO2 [Moles/Vol] 30.4 mmol/L 21.0-31.0 [facility] Chloride [Moles/volume] in S ousmane or PlasmaOrdered By: Tatiana Douglas on 07-18-2023 Chloride [Moles/Vol] 107 mmol/L 98-107 [facility] Creatinine [Mass/volume] in Serum or PlasmaOrdered By: Tatiana Douglas on 07-18-2023 Creatinine [Mass/Vol] 0.85 mg/dL 0.60-1.20 [facility] Creatinine [Mass/volume] in UrineOrdered By: Tatiana Douglas on 07-18-2023 Creatinine (U) [Mass/Vol] 85.0 mg/dL [facility] Comment on above: No reference range e stablished Eosinophils Auto (Bld) [#/Vo l]Ordered By: Tatiana Douglas on 07-18-2023 Eosinophils (Bld) [#/Vol] 0.2 10*3/uL 0.0-0.45 [facility] Eosinophils/100 WBC Auto (Bl d)Ordered By: Tatiana Douglas on 05-15-2024 Eosinophils/100 WBC (Bld) 2.8 % . [facility] Erythrocyte distribution wid th Auto (RBC) [Ratio]Ordered By: Tatiana Douglas on 07-18-2023 Erythrocyte distribution width (RBC) [Ratio] 13.4 % 11.9-15.3 [facility] Gamma globulin/Protein.total in 24 hour Urine by ElectrophoresisOrdered By: Tatiana Douglas on 07-18-2023 Gamma globulin Elph (24H U) [Mass fraction] 14.6 % . [facility] Globulin Calc (S) [Mass/Vol] Ordered By: Tatiana Douglas on 07-18-2023 Globulin (S) [Mass/Vol] 2.7 g/dL [facility] Glucose [Mass/volume] in Ser um or PlasmaOrdered By: Tatiana Douglas on 07-18-2023 Glucose [Mass/Vol] 75 mg/dL 70-100 [facility] Comment on above: ADA recommended refe rence rangeRandom Glucose Reference Range is dependent on time and content of last meal. Glucose of more than 200 mg/dL in a nonstressed, ambulatory subject supports the diagnosis of Diabetes Mellitus. Hematocrit Auto (Bld) [Volum e fraction]Ordered By: Tatiana Douglas on 07-18-2023 Hematocrit (Bld) [Volume fraction] 41.4 % 34.0-46.4 [facility] Hemoglobin [Mass/volume] in BloodOrdered By: Tatiana Douglas on 07-18-2023 Hemoglobin (Bld) [Mass/Vol] 13.7 g/dL 11.8-15.4 [facility] IgA [Mass/volume] in Serum o r PlasmaOrdered By: Tatiana Douglas on 07-18-2023 IgA [Mass/Vol] 78 mg/dL 64-422 [facility] IgG [Mass/volume] in Serum o r PlasmaOrdered By: Tatiana Douglas on 07-18-2023 IgG [Mass/Vol] 1223 mg/dL [id number] [facility] IgM [Mass/volume] in Serum o r PlasmaOrdered By: Tatiana Douglas on 07-18-2023 IgM [Mass/Vol] 39 mg/dL 26-217 [facility] Comment on above: Performed at: [address] [place] [id number] Director: Kristian Castro PhD, Phone: [phone] Immunoglobulin light chains. kappa.free [Mass/volume] in SerumOrdered By: Tatiana Douglas on 07-18-2023 Immunoglobulin light chains.kappa.free (S) [Mass/Vol] 27.8 mg/L High 3.3-19.4 [facility] Immunoglobulin light chains. kappa.free/Immunoglobulin light chains.lambda.free [MassOrdered By: Tatiana Douglas on 07-18-2023 Immunoglobulin light chains.kappa.free/Immun oglobulin light chains.lambda.free (S) [Mass ratio] 0.35 0.26-1.65 [facility] Comment on above: Performed at: [address] [id number] Director: Kristian Castro PhD, Phone: [phone] Immunoglobulin light chains. lambda.free [Mass/volume] in Serum or PlasmaOrdered By: Tatiana Douglas on 07-18-2023 Immunoglobulin light chains.lambda.free [Mass/Vol] 80.5 mg/L High 5.7-26.3 [facility] Laboratory - Chemistry and C hemistry - challengeOrdered By: Tatiana Douglas on 07-18-2023 Protein [Mass/Vol] 1.0 g/dL High Not Observed [facility] Leukocytes [#/volume] correc annie for nucleated erythrocytes in Blood by Automated counOrdered By: Tatiana Douglas on 07-18-2023 WBC corrected for nucl RBC Auto (Bld) [#/Vol] 5.8 10*3/uL 3.8-11.6 [facility] Lymphocytes Auto (Bld) [#/Vo l]Ordered By: Tatiana Douglas on 07-18-2023 Lymphocytes (Bld) [#/Vol] 1.1 10*3/uL 1.00-4.8 [facility] Lymphocytes/100 WBC Auto (Bl d)Ordered By: Tatiana Douglas on 07-18-2023 Lymphocytes/100 WBC (Bld) 18.8 % . [facility] MCH Auto (RBC) [Entitic mass ]Ordered By: Tatiana Douglas on 05-15-2024 MCH (RBC) [Entitic mass] 30.3 pg 24.7-34.3 [facility] MCHC Auto (RBC) [Mass/Vol]Or dered By: Tatiana Douglas on 07-18-2023 MCHC (RBC) [Mass/Vol] 33.0 g/dL 32.0-35.0 [facility] MCV Auto (RBC) [Entitic vol] Ordered By: Tatiana Douglas on 07-18-2023 MCV (RBC) [Entitic vol] 91.8 fL 80-100 [facility] Monocytes Auto (Bld) [#/Vol] Ordered By: Tatiana Douglas on 07-18-2023 Monocytes (Bld) [#/Vol] 0.5 10*3/uL 0.0-0.8 [facility] Monocytes/100 WBC Auto (Bld) Ordered By: Tatiana Douglas on 07-18-2023 Monocytes/100 WBC (Bld) 8.2 % . [facility] Neutrophils Auto (Bld) [#/Vo l]Ordered By: Tatiana Douglas on 07-18-2023 Neutrophils (Bld) [#/Vol] 4.0 10*3/uL 1.8-7.7 [facility] Neutrophils/100 WBC Auto (Bl d)Ordered By: Tatiana Douglas on 07-18-2023 Neutrophils/100 WBC (Bld) 69.5 % . [facility] No Panel InformationOrdered By: Tatiana Douglas on 07-18-2023 Estimated GFR (CKD-EPI) > 60.0 mL/Min [facility]acy Creatinine Clearance (Chem N/A [facility] Protein Electrophoresis Note See comment . [facility] Comment on above: Protein electrophore sis scan will follow via computer,mail, or farmworker general delivery.Performed at: [facility] [id number] Director: Kristian Castro PhD, Phone: [phone] Serum Immunofixation See comment Abnormal . [facility] Comment on above: Immunofixation shows IgG monoclonal protein with lambdalight chain specificity. Urine Random Prot Electrophor Note See comment . [facility] Comment on above: Protein electrophore sis scan will follow via computer,mail, or farmworker general delivery.Performed at: [facility] [id number] [place], [place] [id number] Director: Kristian Castro PhD, Phone: [phone] Nucleated erythrocytes [Pres ence] in Blood by Automated countOrdered By: Tatiana Douglas on 07-18-2023 Nucleated RBC Auto Ql (Bld) 0.0 /100{WBC} 0-0.5 [facility] Platelet adequacy [Presence] in Blood by Light microscopyOrdered By: Tatiana Douglas on 07-18-2023 Platelets LM Ql (Bld) Normal Normal [facility] Platelet mean volume Auto (B ld) [Entitic vol]Ordered By: Tatiana Douglas on 07-18-2023 Platelet mean volume (Bld) [Entitic vol] 9.4 fL 6.3-10.7 [facility] Platelet morphology finding [Identifier] in BloodOrdered By: Tatiana Douglas on 07-18-2023 Platelet morphology finding Nom (Bld) N/A [facility] Platelets Auto (Bld) [#/Vol] Ordered By: Tatiana Douglas on 07-18-2023 Platelets (Bld) [#/Vol] 205 10*3/uL 150-450 [facility] Platelets Large [Presence] i n Blood by Light microscopyOrdered By: Tatiana Douglas on 07-18-2023 Platelets Large LM Ql (Bld) Slight [facility] Poikilocytosis [Presence] in Blood by Light microscopyOrdered By: Tatiana Douglas on 07-18-2023 Poikilocytosis LM Ql (Bld) Slight [facility] Polychromasia [Presence] in Blood by Light microscopyOrdered By: Tatiana Douglas on 07-18-2023 Polychromasia LM Ql (Bld) [facility] Potassium [Moles/volume] in Serum or PlasmaOrdered By: Tatiana Douglas on 07-18-2023 Potassium [Moles/Vol] 4.2 mmol/L 3.5-5.1 [facility] Protein [Mass/volume] in Ser um or PlasmaOrdered By: Tatiana Douglas on 07-18-2023 Protein [Mass/Vol] 7.1 g/dL 6.4-8.9 [facility] Protein [Mass/Vol] 6.9 g/dL 6.0-8.5 [facility] Protein [Mass/volume] in Uri neOrdered By: Tatiana Douglas on 07-18-2023 Protein (U) [Mass/Vol] 6.3 mg/dL Not Estab. Fi [facility] Protein.monoclonal/Protein.t otal in 24 hour Urine by ElectrophoresisOrdered By: Tatiana Douglas on 07-18-2023 Protein.monoclonal Elph (24H U) [Mass fraction] Not observed % Not Observed [facility] RBC Auto (Bld) [#/Vol]Ordere d By: Tatiana Douglas on 07-18-2023 RBC (Bld) [#/Vol] 4.52 10*6/uL 3.60-5.00 [facility] RBC morphologyOrdered By: Mayito Douglas on 07-18-2023 RBC morphology finding Nom (Bld) N/A [facility] Red blood cell stomatocyte d etectionOrdered By: Tatiana Douglas on 07-18-2023 Stomatocytes LM Ql (Bld) Slight [facility] Serum globulin measurement ( mass/volume)Ordered By: Tatiana Douglas on 07-18-2023 Globulin (S) [Mass/Vol] 3.0 g/dL 2.2-3.9 [facility] Serum or plasma albumin/glob ulin mass ratioOrdered By: Tatiana Douglas on 07-18-2023 Albumin/Globulin [Mass ratio] 1.6 {ratio} [facility] Albumin/Globulin [Mass ratio] 1.3 {ratio} 0.7-1.7 [facility] Serum or plasma alpha 1 glob ulin measurement by electrophoresis (mass/volume)Ordered By: Tatiana Douglas on 07-18-2023 Alpha 1 globulin Elph [Mass/Vol] 0.2 g/dL 0.0-0.4 [facility] Serum or plasma alpha 2 glob ulin measurement by electrophoresis (mass/volume)Ordered By: Tatiana Douglas on 07-18-2023 Alpha 2 globulin Elph [Mass/Vol] 0.7 g/dL 0.4-1.0 [facility] Serum or plasma anion gap de terminationOrdered By: Tatiana Douglas on 07-18-2023 Anion gap [Moles/Vol] 6.8 mmol/L 6.0-15.0 [facility] Serum or plasma beta globuli n measurement by electrophoresis (mass/volume)Ordered By: Tatiana Douglas on 07-18-2023 Beta globulin Elph [Mass/Vol] 0.9 g/dL 0.7-1.3 [facility] Serum or plasma gamma globul in measurement by electrophoresis (mass/volume)Ordered By: Tatiana Douglas on 07-18-2023 Gamma globulin Elph [Mass/Vol] 1.2 g/dL 0.4-1.8 [facility] Sodium [Moles/volume] in Ser um or PlasmaOrdered By: Tatiana Douglas on 07-18-2023 Sodium [Moles/Vol] 140 mmol/L 136-145 [facility] Urea nitrogen [Mass/volume] in Serum or PlasmaOrdered By: Tatiana Douglas on 07-18-2023 Urea nitrogen [Mass/Vol] 32 mg/dL High 7-25 [facility] Urine alpha 1 globulin/total protein by electrophoresisOrdered By: Tatiana Douglas on 07-18-2023 Alpha 1 globulin Elph (U) [Mass fraction] 6.3 % . [facility] Urine alpha 2 globulin/total protein ratio by electrophoresisOrdered By: Tatiana Douglas on 07-18-2023 Alpha 2 globulin Elph (U) [Mass fraction] 14.1 % . [facility] Urine beta globulin measurem ent by electrophoresis (mass/volume)Ordered By: Tatiana Douglas on 07-18-2023 Beta globulin Elph (U) [Mass/Vol] 41.3 % . [facility] Urine protein/creatinine rat ioOrdered By: Tatiana Douglas on 07-18-2023 Protein/Creatinine (U) [Ratio] 82 mg/g{Cre} 0-200 [facility] WBC Auto (Bld) [#/Vol]Ordere d By: Tatiana Douglas on 07-18-2023 WBC (Bld) [#/Vol] 5.8 10*3/uL 3.8-11.6 [facility] C3 and C4 COMPLEMENTon 06-22 Complement C3, Serum 149 mg/dL Normal 82-167 [facility] Comment on above: Performed By: #### C ROMEO #### [facility] [address] [address] [address] Yaneth Walton Complement C4, Serum 31 mg/dL Normal 12-38 [facility] Comment on above: Performed By: #### C ROMEO #### [facility] [address] [address] [address] Yaneth Walton CBC AUTO DIFFon 06-21-2022 BASO # 0.0 103/ul Normal 0.0-0.1 [facility] Comment on above: Performed By: #### C BC #### [facility] [address] [place] [address] Dr. Yaneth Walton Basophils/100 WBC (Bld) 0.6 % Normal 0.2-2.0 [facility] Comment on above: Performed By: #### C BC #### [facility] [address] [place] [address] Dr. Yaneth Walton EO # 0.1 103/ul Normal 0.0-0.7 [facility] Comment on above: Performed By: #### C BC #### [facility] [address] [place] [address] Dr. Yaneth Walton Eosinophils/100 WBC (Bld) 2.8 % Normal 0.9-7.0 [facility] Comment on above: Performed By: #### C BC #### [facility] [address] [place] [address] Dr. Yaneth Walton Erythrocyte distribution width (RBC) [Ratio] 11.9 % Normal 11.0-15.0 [facility] Comment on above: Performed By: #### C BC #### [facility] [address] [place] [address] Dr. Yaneth Walton Hematocrit (Bld) [Volume fraction] 40.3 % Normal 36.0-48.0 [facility] Comment on above: Performed By: #### C BC #### [facility] [address] [place] [address] Dr. Yaneth Walton Hemoglobin (Bld) [Mass/Vol] 13.3 g/dL Normal 12.0-16.0 [facility] Comment on above: Performed By: #### C BC #### [facility] [address] [place] [address] Dr. Yaneht Walton IG # 0.01 10e3/ul Normal 0.00-0.03 [facility] Comment on above: Performed By: #### C BC #### [facility] [address] [place] [address] Dr. Yaneth Walton IG % 0.2 % Normal 0.0-0.5 [facility] Comment on above: Performed By: #### C BC #### [facility] [address] [place] [address] Dr. Yaneth Walton LYMPH # 1.0 103/ul Critically low 1.2-3.8 [facility] Comment on above: Performed By: #### C BC #### [facility] [address] [place] [address] Dr. Yaneth Walton Lymphocytes/100 WBC (Bld) 20.9 % Normal 20.5-60.0 [facility] Comment on above: Performed By: #### C BC #### [facility] [address] [place] [address] Dr. Yaneth Walton MANUAL DIFF REQ NO Normal [facility] Comment on above: Performed By: #### C BC #### [facility] [address] [place] [address] Dr. Yaneth Walton MCH (RBC) [Entitic mass] 32.0 pg Normal 26.7-34.0 [facility] Comment on above: Performed By: #### C BC #### [facility] [address] [place] [address] Dr. Yaneth Walton MCHC (RBC) [Mass/Vol] 33.0 g/dL Normal 29.9-35.2 [facility] Comment on above: Performed By: #### C BC #### [facility] [address] [place] [address] Dr. Yaneth Walton MCV (RBC) [Entitic vol] 97.1 fL Normal 81.0-99.0 [facility] Comment on above: Performed By: #### C BC #### [facility] [address] [place] [address] Dr. Yaneth Walton MONO # 0.4 103/ul Normal 0.3-0.8 [facility] Comment on above: Performed By: #### C BC #### [facility] [address] [place] [address] Dr. Yaneth Walton Monocytes/100 WBC (Bld) 8.4 % Normal 1.7-12.0 [facility] Comment on above: Performed By: #### C BC #### [facility] [address] [place] [address] Dr. Yaneth Walton NEUT # 3.1 103/ul Normal 1.4-6.5 [facility] Comment on above: Performed By: #### C BC #### [facility] [address] [place] [address] Dr. Yaneth Walton Neutrophils/100 WBC (Bld) 67.1 % Normal 43.0-75.0 [facility] Comment on above: Performed By: #### C BC #### [facility] [address] [place] [address] Dr. Yaneth Walton Platelet mean volume (Bld) [Entitic vol] 10.7 fL Normal 9.5-13.5 [facility] Comment on above: Performed By: #### C BC #### [facility] [address] [place] [address] Dr. Yaneth Walton PLT 213 103/ul Normal 150-450 [facility] Comment on above: Performed By: #### C BC #### [facility] [address] [place] [address] Dr. Yaneth Walton RBC 4.15 106/ul Critically low 4.20-5.40 [facility] Comment on above: Performed By: #### C BC #### [facility] [address] [place] [address] Dr. Yaneth Walton WBC 4.7 103/ul Normal 4.0-11.0 [facility] Comment on above: Performed By: #### C BC #### [facility] [address] [place] [address] Dr. Yaneth Walton CREATININEon 06-21-2022 Creatinine [Mass/Vol] 0.82 mg/dL Normal 0.55-1.02 [facility] Comment on above: Performed By: #### C ROMEO #### [facility] [address] [place] [address] Dr. Yaneth Walton EGFR-AF ISRAELI >60 Normal >=60 [facility] Comment on above: Performed By: #### C ROMEO #### [facility] [address] [place] [address] Dr. Yaneth Walton EGFR-NON AF ISRAELI >60 Normal >=60 [facility] Comment on above: Performed By: #### C ROMEO #### [facility] [address] [place] [address] Dr. Yaneth Walton SED RATE WESTERGREN 2022 SED RATE 7 mm/hr Normal <=30 [facility] Comment on above: Performed By: #### C ROMEO #### [facility] [address] [place] [address] Dr. Yaneth Walton UA RANDOM W/MICROSCOPICon BACTERIA TRACE Abnormal NONE SEEN [facility] Comment on above: Performed By: #### C ROMEO #### [facility] [address] [place] [address] Dr. Yaneth Walton Bilirubin Ql (U) Negative Normal NEGATIVE [facility] Comment on above: Performed By: #### C ROMEO #### [facility] [address] [place] [address] Dr. Yaneth Walton CAST NONE SEEN Normal NONE SEEN [facility] Comment on above: Performed By: #### C ROMEO #### [facility] [address] [place] [address] Dr. Yaneth Walton Clarity (U) CLEAR Normal CLEAR [facility] Comment on above: Performed By: #### C ROMEO #### [facility] [address] [place] [address] Dr. Yaneth Walton Color (U) LT. YELLOW Normal YELLOW [facility] Comment on above: Performed By: #### C ROMEO #### [facility] [address] [place] [address] Dr. Yaneth Walton Crystals LM Nom (Urine sed) NONE SEEN Normal NONE SEEN [facility] Comment on above: Performed By: #### C ROMEO #### [facility] [address] [place] [address] Dr. Yaneth Walton Epithelial cells LM Ql (Urine sed) RARE Normal NONE SEEN /RARE [facility] Comment on above: Performed By: #### C ROMEO #### [facility] [address] [place] [address] Dr. Yaneth Walton Glucose Ql (U) Negative Normal NEGATIVE [facility] Comment on above: Performed By: #### C ROMEO #### [facility] [address] [place] [address] Dr. Yaneth Walton Hemoglobin Ql (U) Negative Normal NEGATIVE [facility] Comment on above: Performed By: #### C ROMEO #### [facility] [address] [place] [address] Dr. Yaneth Walton Ketones Ql (U) Negative Normal NEGATIVE [facility] Comment on above: Performed By: #### C ROMEO #### [facility] [address] [place] [address] Dr. Yaneth Walton LEUKOCYTES LARGE Abnormal NEGATIVE [facility] Comment on above: Performed By: #### C ROMEO #### [facility] [address] [place] [address] Dr. Yaneth Walton MUCOUS NONE SEEN Normal NONE SEEN [facility] Comment on above: Performed By: #### C ROMEO #### [facility] [address] [place] [address] Dr. Yaneth Walton Nitrite Ql (U) Negative Normal NEGATIVE [facility] Comment on above: Performed By: #### C ROMEO #### [facility] [address] [place] [address] Dr. Yaneth Walton pH (U) 6.0 [pH] Normal 5-9 [facility] Comment on above: Performed By: #### C ROMEO #### [facility] [address] [place] [address] Dr. Yaneth Walton RBC 0-2 Normal 0-2 [facility] Comment on above: Performed By: #### C ROMEO #### [facility] [address] [place] [address] Dr. Yaneth Walton SPEC GRAVITY <=1.005 Abnormal 1.005-<=1. 025 [facility] Comment on above: Performed By: #### C ROMEO #### [facility] [address] [place] [address] Dr. Yaneth Walton UA PROTEIN Negative Normal NEGATIVE/ TRACE [facility] Comment on above: Performed By: #### C ROMEO #### [facility] [address] [place] [address] Dr. Yaneth Walton Urobilinogen Qn (U) 0.2 {Ruth Ann'U}/dL Normal 0.2 - 1. 0 [facility] Comment on above: Performed By: #### C ROMEO #### [facility] [address] [place] [address] Dr. Yaneth Walton WBC 10-20 Abnormal NONE SEEN [facility] Comment on above: Performed By: #### C ROMEO #### [facility] [address] [place] [address] Dr. Yaneth Walton MRI LSPINE WO CONon [...] by: HEATHER BECKER Date: 2022-02-10 14:50 Normal [facility] XR KNEE [place] 4V or [...] by: HEATHER BECKER Date: 2022-02-03 17:51 Normal [facility] XR LSPINE MIN 4 VIEWSon [...] HEATHER BECKER Date: 2022-02-03 17:54 Normal [facility] C3 and C4 COMPLEMENTon 12-22 Complement C3, Serum 155 mg/dL Normal 82-167 [facility] Comment on above: Performed By: #### C SUITE #### [facility] [address] [place] [address] Dr. Yaneth Walton Complement C4, Serum 35 mg/dL Normal 12-38 [facility] Comment on above: Performed By: #### C SUITE #### [facility] [address] [place] [address] Dr. Yaneth Walton CBC AUTO DIFFon 12-21-2021 BASO # 0.1 103/ul Normal 0.0-0.1 [facility] Comment on above: Performed By: #### C BC #### [facility] [address] [place] [address] Dr. Yaneth Walton Basophils/100 WBC (Bld) 0.9 % Normal 0.2-2.0 [facility] Comment on above: Performed By: #### C BC #### [facility] [address] [place] [address] Dr. Yaneth Walton EO # 0.1 103/ul Normal 0.0-0.7 [facility] Comment on above: Performed By: #### C BC #### [facility] [address] [place] [address] Dr. Yaneth Walton Eosinophils/100 WBC (Bld) 2.2 % Normal 0.9-7.0 [facility] Comment on above: Performed By: #### C BC #### [facility] [address] [place] [address] Dr. Yaneth Walton Erythrocyte distribution width (RBC) [Ratio] 13.0 % Normal 11.0-15.0 [facility] Comment on above: Performed By: #### C BC #### [facility] [address] [place] [address] Dr. Yaneth Walton Hematocrit (Bld) [Volume fraction] 42.0 % Normal 36.0-48.0 [facility] Comment on above: Performed By: #### C BC #### [facility] [address] [place] [address] Dr. Yaneth Walton Hemoglobin (Bld) [Mass/Vol] 13.4 g/dL Normal 12.0-16.0 [facility] Comment on above: Performed By: #### C BC #### [facility] [address] [place] [address] Dr. Yaneth Walton IG # 0.01 10e3/ul Normal 0.00-0.03 [facility] Comment on above: Performed By: #### C BC #### [facility] [address] [place] [address] Dr. Yaneth Walton IG % 0.2 % Normal 0.0-0.5 [facility] Comment on above: Performed By: #### C BC #### [facility] [address] [place] [address] Dr. Yaneth Walton LYMPH # 1.0 103/ul Critically low 1.2-3.8 [facility] Comment on above: Performed By: #### C BC #### [facility] [address] [place] [address] Dr. Yaneth Walton Lymphocytes/100 WBC (Bld) 18.0 % Critically low 20.5-60.0 [facility] Comment on above: Performed By: #### C BC #### [facility] [address] [place] [address] Dr. Yaneth Walton MANUAL DIFF REQ NO Normal [facility] Comment on above: Performed By: #### C BC #### [facility] [address] [place] [address] Dr. Yaneth Walton MCH (RBC) [Entitic mass] 30.5 pg Normal 26.7-34.0 [facility] Comment on above: Performed By: #### C BC #### [facility] [address] [place] [address] Dr. Yaneth Walton MCHC (RBC) [Mass/Vol] 31.9 g/dL Normal 29.9-35.2 [facility] Comment on above: Performed By: #### C BC #### [facility] [address] [address] [address] Yaneth Walton MCV (RBC) [Entitic vol] 95.7 fL Normal 81.0-99.0 [facility] Comment on above: Performed By: #### C BC #### [facility] [address] [address] [address] Yaneth Walton MONO # 0.5 103/ul Normal 0.3-0.8 [facility] Comment on above: Performed By: #### C BC #### [facility] [address] [place] [address] Dr. Yaneth Walton Monocytes/100 WBC (Bld) 8.7 % Normal 1.7-12.0 [facility] Comment on above: Performed By: #### C BC #### [facility] [address] [place] [address] Dr. Yaneth Walton NEUT # 3.8 103/ul Normal 1.4-6.5 [facility] Comment on above: Performed By: #### C BC #### [facility] [address] [place] [address] Dr. Yaneth Walton Neutrophils/100 WBC (Bld) 70.0 % Normal 43.0-75.0 [facility] Comment on above: Performed By: #### C BC #### [facility] [address] [place] [address] Dr. Yaneth Walton Platelet mean volume (Bld) [Entitic vol] 10.8 fL Normal 9.5-13.5 [facility] Comment on above: Performed By: #### C BC #### [facility] [address] [place] [address] Dr. Yaneth Walton PLT 213 103/ul Normal 150-450 [facility] Comment on above: Performed By: #### C BC #### [facility] [address] [place] [address] Dr. Yaneth Walton RBC 4.39 106/ul Normal 4.20-5.40 [facility] Comment on above: Performed By: #### C BC #### [facility] [address] [place] [address] Dr. Yaneth Walton WBC 5.4 103/ul Normal 4.0-11.0 [facility] Comment on above: Performed By: #### C BC #### [facility] [address] [place] [address] Dr. Yaneth Walton CREATININEon 12-21-2021 Creatinine [Mass/Vol] 0.87 mg/dL Normal 0.55-1.02 [facility] Comment on above: Performed By: #### C ROMEO #### [facility] [address] [place] [address] Dr. Yaneth Walton EGFR-AF ISRAELI >60 Normal >=60 [facility] Comment on above: Performed By: #### C ROMEO #### [facility] [address] [place] [address] Dr. Yaneth Walton EGFR-NON AF ISRAELI >60 Normal >=60 [facility] Comment on above: Performed By: #### C ROMEO #### [facility] [address] [place] [address] Dr. Yaneth Walton [facility] SED [facility]ATE 10 mm/hr Normal <=30 [facility] Comment on above: Performed By: #### S EDR #### [facility] [address] [place] [address] Dr. Yaneth Walton UA RANDOM W/MICROSCOPICon BACTERIA NONE SEEN Normal NONE SEEN [facility] Comment on above: Performed By: #### C ROMEO #### [facility] [address] [place] [address] Dr. Yaneth Walton Bilirubin Ql (U) Negative Normal NEGATIVE [facility] Comment on above: Performed By: #### C ROMEO #### [facility] [address] [place] [address] Dr. Yaneth Walton CAST NONE SEEN Normal NONE SEEN [facility] Comment on above: Performed By: #### C ROMEO #### [facility] [address] [place] [address] Dr. Yaneth Walton Clarity (U) CLEAR Normal CLEAR [facility] Comment on above: Performed By: #### C ROMEO #### [facility] [address] [place] [address] Dr. Yaneth Walton Color (U) LT. YELLOW Normal YELLOW [facility] Comment on above: Performed By: #### C ROMEO #### [facility] [address] [place] [address] Dr. Yaneth Walton Crystals LM Nom (Urine sed) NONE SEEN Normal NONE SEEN [facility] Comment on above: Performed By: #### C ROMEO #### [facility] [address] [place] [address] Dr. Yaneth Walton Epithelial cells LM Ql (Urine sed) FEW Abnormal NONE SEEN /RARE [facility] Comment on above: Performed By: #### C ROMEO #### [facility] [address] [place] [address] Dr. Yaneth Walton Glucose Ql (U) Negative Normal NEGATIVE [facility] Comment on above: Performed By: #### C ROMEO #### [facility] [address] [place] [address] Dr. Yaneth Walton Hemoglobin Ql (U) Negative Normal NEGATIVE [facility] Comment on above: Performed By: #### C ROMEO #### [facility] [address] [place] [address] Dr. Yaneth Walton Ketones Ql (U) Negative Normal NEGATIVE [facility] Comment on above: Performed By: #### C ROMEO #### [facility] [address] [place] [address] Dr. Yaneth Walton LEUKOCYTES TRACE Abnormal NEGATIVE [facility] Comment on above: Performed By: #### C ROMEO #### [facility] [address] [place] [address] Dr. Yaneth Walton MUCOUS NONE SEEN Normal NONE SEEN [facility] Comment on above: Performed By: #### C ROMEO #### [facility] [address] [place] [address] Dr. Yaneth Walton Nitrite Ql (U) Negative Normal NEGATIVE [facility] Comment on above: Performed By: #### C ROMEO #### [facility] [address] [place] [address] Dr. Yaneth Walton pH (U) 6.0 [pH] Normal 5-9 [facility] Comment on above: Performed By: #### C ROMEO #### [facility] [address] [place] [address] Dr. Yaneth Walton RBC NONE SEEN Abnormal 0-2 [facility] Comment on above: Performed By: #### C ROMEO #### [facility] [address] [place] [address] Dr. Yaneth Walton SPEC GRAVITY 1.010 Normal 1.005-<=1. 025 [facility] Comment on above: Performed By: #### C ROMEO #### [facility] [address] [place] [address] Dr. Yaneth Walton UA PROTEIN Negative Normal NEGATIVE/ TRACE [facility] Comment on above: Performed By: #### C ROMEO #### [facility] [address] [place] [address] Dr. Yaneth Walton Urobilinogen Qn (U) 0.2 {Ruth Ann'U}/dL Normal 0.2 - 1. 0 [facility] Comment on above: Performed By: #### C ROMEO #### [facility] [address] [place] [address] Dr. Yaneth Walton WBC 0-2 Abnormal NONE SEEN [facility] Comment on above: Performed By: #### C ROMEO #### [facility] [address] [place] [address] Dr. Yaneth Walton PTH INTACTon 08-20-2021 PTH, Intact 44 pg/mL Normal 15-65 [facility] Comment on above: Performed By: #### B ETA2M #### [facility] [address] [place] [address] Dr. Yaneth Walton FREE T3on 08-19-2021 FREE T3 2.44 pg/mlL Normal 2.18-3.98 [facility] Comment on above: Performed By: #### B ETA2M #### [facility] [address] [place] [address] Dr. Yaneth Walton FREE T4on 08-19-2021 Free T4 [Mass/Vol] 1.11 ng/dL Normal 0.76-1.46 [facility] Comment on above: Performed By: #### B ETA2M #### [facility] [address] [address] [address] Yaneth Walton LIPID PROFILEon 08-19-2021 CHOL-HDL RATIO NORM SEE BELOW Normal [facility] Comment on above: Result Comment: 3.3 - 4.4 LOW RISK 4.4 - 7.1 AVERAGE RISK 7.1 - 11.0 MODERATE RISK >11.0 HIGH RISK Performed By: #### C ROMEO #### [facility] [address] [address] [address] Yaneth Walton Cholesterol [Mass/Vol] 180 mg/dL Normal <=200 [facility] Comment on above: Performed By: #### C ROMEO #### [facility] [address] [address] [address] Yaneth Walton Cholesterol in HDL [Mass/Vol] 76 mg/dL Critically high 40-60 [facility] Comment on above: Performed By: #### C ROMEO #### [facility] [address] [address] [address] Yaneth Walton Cholesterol in LDL [Mass/Vol] 92.6 mg/dL Normal [facility] Comment on above: Performed By: #### C ROMEO #### [facility] [address] [address] [address] Yaneth Walton Cholesterol.total/Nydia sterol in HDL [Mass ratio] 2.4 {ratio} Normal [facility] Comment on above: Performed By: #### C ROMEO #### [facility] [address] [address] [address] Yaneth Walton HDL NORMAL > or = 60 mg/dl - LO W CARDIOVASCULAR RISK <40 mg/dl - HIGH CARDIOVASCULAR RISK Normal [facility] Comment on above: Performed By: #### C ROMEO #### [facility] [address] [address] [address] Yaneth Walton LDL CALC NORMAL SEE BELOW Normal [facility] Comment on above: Result Comment: <100 mg/dl OPTIMAL 100 - 129 mg/dl NEAR OR ABOVE OPTIMAL 130 - 159 mg/dl BORDERLINE HIGH 160 - 189 mg/dl HIGH >190 mg/dl VERY HIGH Performed By: #### C ROMEO #### [facility] [address] [address] [address] Yaneth Walton Triglyceride [Mass/Vol] 57 mg/dL Normal <=150 [facility] Comment on above: Performed By: #### C ROMEO #### [facility] [address] [address] [address] Yaneth Walton VLDL CALC 11.4 mg/dL Normal [facility] Comment on above: Performed By: #### C ROMEO #### [facility] [address] [address] [address] Yaneth Walton MG MAMM SCREEN 3D OH CADon 08-19-2021 MG MAMM SCREEN 3D OH CAD Patient: SINA PEREZ Exam Date: 08/19/2021 : 1950 Gender:F Ordering : DR GER KENNEDY . Admission #: [id number] Family : Order #: [id number] CLICK HERE TO VIEW EXAM RADIOLOGY REPORT [...] colon cancer at age 71. LOCATION: [facility] BREAST COMPOSITION: Heterogeneously dense,which may obscure [...] M.D. on 08/19/2021 at 12:07 Normal [facility] TSHon 08-19-2021 TSH 0.181 uIU/mL Critically low 0.358-3.74 0 [facility] Comment on above: Performed By: #### B ETA2M #### [facility] [address] [address] [address] Yaneth Walton VITAMIN D 25 OHon 08-19-2021 VIT D 25-OH 51.8 ng/mL Normal [facility] Comment on above: Performed By: #### B ETA2M #### [facility] [address] [address] [address] Yaneth Walton VIT D RANGES SEE BELOW Normal [facility] Comment on above: Result Comment: <20 ng/mL Vit D deficient 20 - <30 ng/mL Vit D insufficient 30 - 100 ng/mL Vit D sufficient >100 ng/mL Potential Toxicity Performed By: #### B ETA2M #### [facility] [address] [address] [address] Yaneth Walton [facility] Surgical Pathology Depar tmenton 08-04-2021 [facility] Surgical Pathology Department Name SINA PEREZ Pathologist: TONYA CARRERA DMD Date of Procedure: 08/04/2021 Date Received: 08/08/2021 Date Reported 08/12/2021 Submitting Physician: LIZETH LAYTON DDS Location: [facility] Other External # FINAL DIAGNOSIS A. ATTACHED GINGIVA OF TEETH #[id number], EXCISION: -- MILD EPITHELIAL DYSPLASIA (MULTIPLE LEVELS EXAMINED) ICD-10/CPT: K13.21/59335 Electronically Signed Out By TONYA CARRERA DMD/ALFONSO By the signature on this report, the individual or group listed as making the Final Interpretation/Diagnosis certifies that they have reviewed this case. Diagnostic interpretation performed at [facility] [address] [facility] [address] Microscopic Description: The sections show a fragment [...] and entirely submitted in one cassette. [facility]/08/08/2021 [facility] Department of Pathology [address] [place] [address] Normal [facility] Comment on above: Performed By: #### U HCS #### [facility] Surgical Pathology Department [address] [place], [place] [id number] IMMUNOFIXATION (MG), SERUMo n 07-11-2021 IMMUNOFIXATION RESULT Comment Abnormal [facility] Comment on above: Result Comment: Immu nofixation shows IgG monoclonal protein with lambda light chain specificity. Performed By: #### C ROMEO #### [facility] [address] [place] [address] Dr. Yaneth Walton Immunoglobulin A, Qn, Serum 113 mg/dL Normal 87-352 [facility] Comment on above: Performed By: #### C ROMEO #### [facility] [address] [address] [address] Yaneth Walton Immunoglobulin G, Qn, Serum 1031 mg/dL Normal 586-1602 [facility] Comment on above: Performed By: #### C ROMEO #### [facility] [address] [place], [place] [id number] Dr. Yaneth Walton Immunoglobulin M, Qn, Serum 42 mg/dL Normal 26-217 [facility] Comment on above: Performed By: #### C ROMEO #### [facility] [address] [place] [address] Dr. Yaneth Walton BETA-2 MICROGLOBINon 022 Beta-2 Microglobulin, Serum 2.2 mg/L Normal 0.6-2.4 [facility] Comment on above: Result Comment: Siem Immulite 2000 Immunochemiluminometric assay (ICMA) . Values obtained with different assay methods or kits cannot be used interchangeably. Results cannot be interpreted as absolute evidence of the presence or absence of malignant disease. Performed By: #### B ETA2M #### [facility] [address] [place] [address] Dr. Yaneth Walton FREE LIGHT CHAINS PLUS RATIO on 07-09-[address]21 [address] [place] [employer] Chains,S 34.7 mg/L Critically high 3.3-19.4 [facility] Comment on above: Performed By: #### F VALENTINLIT #### [facility] [address] [place] [address] Dr. Yaneth Walton Free [place]ambda Lt Chains,S 50.1 mg/L Critically high 5.7-26. 3 [facility] Comment on above: Performed By: #### F REELIT #### [facility] [address] [place] [address] Dr. Yaneth Walton [place]/Lambda Ratio, S 0.69 Normal 0.26-1.65 [facility] Comment on above: Performed By: #### F REELIT #### [facility] [address] [place] [address] Dr. Yaneth Walton IMMUNOGLOBULINS IGA/IGM/IGG QUANTITATIVEon 07-08-2021 Immunoglobulin A, Qn, Serum 111 mg/dL Normal 87-352 [facility] Comment on above: Performed By: #### I MMUNGL #### [facility] [address] [place] [address] Dr. Yaneth Walton Immunoglobulin G, Qn, Serum 1037 mg/dL Normal 586-1602 [facility] Comment on above: Performed By: #### I MMUNGL #### [facility] [address] [place] [address] Dr. Yaneth Walton Immunoglobulin M, Qn, Serum 44 mg/dL Normal 26-217 [facility] Comment on above: Performed By: #### I MMUNGL #### [facility] [address] [address] [address] Yaneth Walton CBC AUTO DIFFon 07-07-2021 BASO # 0.0 103/ul Normal 0.0-0.1 [facility] Comment on above: Performed By: #### C BC #### [facility] [address] [address] [address] Yaneth Walton Basophils/100 WBC (Bld) 0.7 % Normal 0.2-2.0 [facility] Comment on above: Performed By: #### C BC #### [facility] [address] [place] [address] Dr. Yaneth Walton EO # 0.2 103/ul Normal 0.0-0.7 [facility] Comment on above: Performed By: #### C BC #### [facility] [address] [place] [address] Dr. Yaneth Walton Eosinophils/100 WBC (Bld) 2.9 % Normal 0.9-7.0 [facility] Comment on above: Performed By: #### C BC #### [facility] [address] [place] [address] Dr. Yaneth Walton Erythrocyte distribution width (RBC) [Ratio] 12.9 % Normal 11.0-15.0 [facility] Comment on above: Performed By: #### C BC #### [facility] [address] [place] [address] Dr. Yaneth Walton Hematocrit (Bld) [Volume fraction] 43.1 % Normal 36.0-48.0 [facility] Comment on above: Performed By: #### C BC #### [facility] [address] [place] [address] Dr. Yaneth Walton Hemoglobin (Bld) [Mass/Vol] 13.8 g/dL Normal 12.0-16.0 [facility] Comment on above: Performed By: #### C BC #### [facility] [address] [place] [address] Dr. Yaneth Walton IG # 0.02 10e3/ul Normal 0.00-0.03 [facility] Comment on above: Performed By: #### C BC #### [facility] [address] [place] [address] Dr. Yaneth Walton IG % 0.4 % Normal 0.0-0.5 [facility] Comment on above: Performed By: #### C BC #### [facility] [address] [place] [address] Dr. Yaneth Walton LYMPH # 1.3 103/ul Normal 1.2-3.8 [facility] Comment on above: Performed By: #### C BC #### [facility] [address] [place] [address] Dr. Yaneth Walton Lymphocytes/100 WBC (Bld) 22.9 % Normal 20.5-60.0 [facility] Comment on above: Performed By: #### C BC #### [facility] [address] [place] [address] Dr. Yaneth Walton MANUAL DIFF REQ NO Normal [facility] Comment on above: Performed By: #### C BC #### [facility] [address] [place] [address] Dr. Yaneth Walton MCH (RBC) [Entitic mass] 30.3 pg Normal 26.7-34.0 [facility] Comment on above: Performed By: #### C BC #### [facility] [address] [place] [address] Dr. Yaneth Walton MCHC (RBC) [Mass/Vol] 32.0 g/dL Normal 29.9-35.2 [facility] Comment on above: Performed By: #### C BC #### [facility] [address] [place] [address] Dr. Yaneth Walton MCV (RBC) [Entitic vol] 94.5 fL Normal 81.0-99.0 [facility] Comment on above: Performed By: #### C BC #### [facility] [address] [place] [address] Dr. Yaneth Walton MONO # 0.5 103/ul Normal 0.3-0.8 [facility] Comment on above: Performed By: #### C BC #### [facility] [address] [place] [address] Dr. Yaneth Walton Monocytes/100 WBC (Bld) 8.7 % Normal 1.7-12.0 [facility] Comment on above: Performed By: #### C BC #### [facility] [address] [place] [address] Dr. Yaneth Walton NEUT # 3.5 103/ul Normal 1.4-6.5 [facility] Comment on above: Performed By: #### C BC #### [facility] [address] [place] [address] Dr. Yaneth Walton Neutrophils/100 WBC (Bld) 64.4 % Normal 43.0-75.0 [facility] Comment on above: Performed By: #### C BC #### [facility] [address] [place] [address] Dr. Yaneth Walton Platelet mean volume (Bld) [Entitic vol] 11.0 fL Normal 9.5-13.5 [facility] Comment on above: Performed By: #### C BC #### [facility] [address] [place] [address] Dr. Yaneth Walton PLT 206 103/ul Normal 150-450 [facility] Comment on above: Performed By: #### C BC #### [facility] [address] [place] [address] Dr. Yaneth Walton RBC 4.56 106/ul Normal 4.20-5.40 [facility] Comment on above: Performed By: #### C BC #### [facility] [address] [place] [address] Dr. Yaneth Wlaton WBC 5.5 103/ul Normal 4.0-11.0 [facility] Comment on above: Performed By: #### C BC #### [facility] [address] [place] [address] Dr. Yaneth Walton PROF 14(COMP METB)on 022 Albumin [Mass/Vol] 3.7 g/dL Normal 3.4-5.0 [facility] Comment on above: Performed By: #### B ETA2M #### [facility] [address] [address] [address] Yaneth Walton Albumin/Globulin [Mass ratio] 1.0 {ratio} Normal [facility] Comment on above: Performed By: #### B ETA2M #### [facility] [address] [address] [address] Yaneth Walton ALP [Catalytic activity/Vol] 103 U/L Normal 46-116 [facility] Comment on above: Performed By: #### B ETA2M #### [facility] [address] [address] [address] Yaneth Walton ALT [Catalytic activity/Vol] 28 U/L Normal 14-59 [facility] Comment on above: Performed By: #### B ETA2M #### [facility] [address] [place] [address] Dr. Yaneth Walton Anion gap [Moles/Vol] 12.0 mmol/L Normal [facility] Comment on above: Performed By: #### B ETA2M #### [facility] [address] [place] [address] Dr. Yaneth Walton AST [Catalytic activity/Vol] 26 U/L Normal 15-37 [facility] Comment on above: Performed By: #### B ETA2M #### [facility] [address] [place] [address] Dr. Yaneth Walton Bilirubin [Mass/Vol] 0.7 mg/dL Normal 0.2-1.0 [facility] Comment on above: Performed By: #### B ETA2M #### [facility] [address] [place] [address] Dr. Yaneth Walton Calcium [Mass/Vol] 8.6 mg/dL Normal 8.5-10.1 [facility] Comment on above: Performed By: #### B ETA2M #### [facility] [facility] [address] [place] [address] Dr. Yaneth Walton Chloride [Moles/Vol] 103 mmol/L Normal 98-107 [facility] Comment on above: Performed By: #### B ETA2M #### [facility] [address] [address] [address] Yaneth Walton CO2 [Moles/Vol] 28.7 mmol/L Normal 21.0-32.0 [facility] Comment on above: Performed By: #### B ETA2M #### [facility] [address] [address] [address] Yaneth Walton Creatinine [Mass/Vol] 0.84 mg/dL Normal 0.55-1.02 [facility] Comment on above: Performed By: #### B ETA2M #### [facility] [address] [place] [address] Dr. Yaneth Walton EGFR-AF ISRAELI >60 Normal >=60 [facility] Comment on above: Performed By: #### B ETA2M #### [facility] [address] [place] [address] Dr. Yaneth Walton EGFR-NON AF ISRAELI >60 Normal >=60 [facility] Comment on above: Performed By: #### B ETA2M #### [facility] [address] [place] [address] Dr. Yaneth Walton Globulin (S) [Mass/Vol] 3.7 g/dL Normal [facility] Comment on above: Performed By: #### B ETA2M #### [facility] [address] [place] [address] Dr. Yaneth Walton Glucose [Mass/Vol] 90 mg/dL Normal 74-106 [facility] Comment on above: Performed By: #### B ETA2M #### [facility] [address] [address] [address] Yaneth Walton Potassium [Moles/Vol] 3.7 mmol/L Normal 3.5-5.1 [facility] Comment on above: Performed By: #### B ETA2M #### [facility] [address] [place] [address] Dr. Yaneth Walton Protein [Mass/Vol] 7.4 g/dL Normal 6.1-8.2 [facility] Comment on above: Performed By: #### B ETA2M #### [facility] [address] [place] [address] Dr. Yaneth Walton Sodium [Moles/Vol] 140 mmol/L Normal 136-145 [facility] Comment on above: Performed By: #### B ETA2M #### [facility] [address] [address] [address] Yaneth Walton Urea nitrogen [Mass/Vol] 22.0 mg/dL Critically high 7.0-18.0 [facility] Comment on above: Performed By: #### B ETA2M #### [facility] [address] [address] [address] Yaneth Walton Urea nitrogen/Creatinine [Mass ratio] 26.2 mg/mg Normal [facility] Comment on above: Performed By: #### B ETA2M #### [facility] [address] [place] [address] Dr. Yaneth Walton Vital Signs Date Time Vital Sign Value Performing Clinician Facility 08-28-2024 14:24-0400 Body height 149.86 cm Jean Hair MD Work Phone: [facility] 08-28-2024 14:24-0400 Body mass index (BMI) [Ratio] 32.5 kg/m2 Jean Hair MD Work Phone: [facility] 08-28-2024 14:24-0400 Body temperature 97.6 [degF] Jean Hair MD Work Phone: [facility] 08-28-2024 14:24-0400 Body weight 73.02 kg Jean Hair MD Work Phone: [facility] 08-28-2024 14:24-0400 Diastolic blood pressure 48 mm[Hg] Jean Hair MD Work Phone: [facility] 08-28-2024 14:24-0400 Heart rate 72 /min Jean Hair MD Work Phone: [facility] 08-28-2024 14:24-0400 Respiratory rate 16 /min Jean Hair MD Work Phone: [facility] 08-28-2024 14:24-0400 SaO2% (BldA) [Mass fraction] 96 % Jean Hair MD Work Phone: [facility] 08-28-2024 14:24-0400 Systolic blood pressure 89 mm[Hg] Jean Hair MD Work Phone: [facility] 07-31-2024 09:51-0400 Body height 149.9 cm Kamala Gold MD Work Phone: [facility] 07-31-2024 09:51-0400 Body mass index (BMI) [Ratio] 33.12 kg/m2 Kamala Gold MD Work Phone: [facility] 07-31-2024 09:51-0400 Body weight 74.39 kg Kamala Gold MD Work Phone: [facility] 07-31-2024 09:51-0400 Heart rate 73 /min Kamala Gold MD Work Phone: [facility] 07-31-2024 09:51-0400 Respiratory rate 16 /min Kamala Gold MD Work Phone: [facility] 07-31-2024 09:51-0400 SaO2% (BldA) [Mass fraction] 94 % Kamala Gold MD Work Phone: [facility] 05-07-2024 11:00-0500 Body mass index (BMI) [Ratio] 34.07 kg/m2 Felicia Salazar NETWORK AP[employer] SPECIALIST Work Phone: [facility] 05-07-2024 11:00-0500 Body weight 73.94 kg Felicia Salazar [employer] SPECIALIST Work Phone: [facility] 05-07-2024 11:00-0500 Diastolic blood pressure 86 mm[Hg] Felicia Salazar [employer]WORK AP[employer] SPECIALIST Work Phone: [facility] 05-07-2024 11:00-0500 Heart rate 75 /min Felicia Salazar [employer]WORK APPLICATION[employer] SPECIALIST Work Phone: [facility] 05-07-2024 11:00-0500 SaO2% (BldA) [Mass fraction] 97 % Felicia Salazar [employer]WORK APPLICATION[employer] SPECIALIST Work Phone: [facility] 05-07-2024 11:00-0500 Systolic blood pressure 142 mm[Hg] Felicia Salazar [employer]WORK [employer] SPECIALIST Work Phone: [facility] 08-29-2023 13:53-0400 Body height 149.86 cm MD Jean Hair Work Phone: [facility] 08-29-2023 13:53-0400 Body mass index (BMI) [Ratio] 31.7 kg/m2 MD Jean Hair Work Phone: [facility] 08-29-2023 13:53-0400 Body temperature 97 [degF] MD Jean Hair Work Phone: [facility] 08-29-2023 13:53-0400 Body weight 71.21 kg MD Jean Hair Work Phone: [facility] 08-29-2023 13:53-0400 Diastolic blood pressure 77 mm[Hg] MD Jean Hair Work Phone: [facility] 08-29-2023 13:53-0400 Heart rate 71 /min MD Jean Hair Work Phone: [facility] 08-29-2023 13:53-0400 Respiratory rate 16 /min MD Jean Hair Work Phone: [facility] 08-29-2023 13:53-0400 SaO2% (BldA) [Mass fraction] 97 % MD Jean Hair Work Phone: [facility] 08-29-2023 13:53-0400 Systolic blood pressure 148 mm[Hg] MD Jean Hair Work Phone: [facility] 08-08-2023 10:37-0400 Diastolic blood pressure 86 mm[Hg] MD Jean Hair Work Phone: [facility] 08-08-2023 10:37-0400 Heart rate 61 /min MD Jean Hair Work Phone: [facility] 08-08-2023 10:37-0400 Respiratory rate 16 /min MD Jean Hair Work Phone: [facility] 08-08-2023 10:37-0400 SaO2% (BldA) [Mass fraction] 99 % MD Jean Hair Work Phone: [facility] 08-08-2023 10:37-0400 Systolic blood pressure 152 mm[Hg] MD Jean Hair Work Phone: [facility] 08-08-2023 09:10-0400 Body height 144.78 cm MD Jean Hair Work Phone: [facility] 08-08-2023 09:10-0400 Body weight 70.3 kg MD Jean Hair Work Phone: [facility] 07-25-2023 09:57-0400 Body height 144.78 cm MD Jean Hair Work Phone: [facility] 07-25-2023 09:57-0400 Body mass index (BMI) [Ratio] 34.4 kg/m2 MD Jean Hair Work Phone: [facility] 07-25-2023 09:57-0400 Body temperature 97.9 [degF] MD Jean Hair Work Phone: [facility] 07-25-2023 09:57-0400 Body weight 72.12 kg MD Jean Hair Work Phone: [facility] 07-25-2023 09:57-0400 Diastolic blood pressure 92 mm[Hg] MD Jean Hair Work Phone: [facility] 07-25-2023 09:57-0400 Heart rate 69 /min MD Jean Hair Work Phone: [facility] 07-25-2023 09:57-0400 Respiratory rate 16 /min MD Jean Hair Work Phone: [facility] 07-25-2023 09:57-0400 SaO2% (BldA) [Mass fraction] 98 % MD Jean Hair Work Phone: [facility] 07-25-2023 09:57-0400 Systolic blood pressure 178 mm[Hg] MD Jean Hair Work Phone: [facility] Encounters Encounter Date Encounter Type Care Provider Facility Start: 12-29-2024 ambulatory Jean Hair Facility :[facility] [place] Start: 09-29-2024 End: 10-02-2024 ambulatory BAG TESTER Chel L Stacey Facility:[facility] [place] [facility] Start: 08-28-2024 Registered Recurring Tatiana Tracy MD [facility] Work Phone: Start: 08-28-2024 End: 08-28-2024 ambulatory Jean Hair MD Work Phone: [facility] Work Phone: Start: 08-28-2024 End: 08-28-2024 Patient encounter procedure Tatiana Tracy MD -[facility] Ambulatory Work Phone: Start: 08-07-2024 End: 08-27-2024 ambulatory BAG TESTER Chel L Stacey Facility:[facility] [place] [facility] Start: 07-31-2024 End: 07-31-2024 Bamboo flowsheet Kamala Gold MD Work Phone: [facility] Start: 07-31-2024 End: 07-31-2024 Bamboo flowsheet Kamala Gold MD Work Phone: [facility] Start: 07-31-2024 End: 07-31-2024 Office outpatient new 60 minutes Kamala Gold MD Work Phone: [facility] Comment on above: History of parathyro id surgery (Primary Dx); H/O partial thyroidectomy (CMS/HCC); Vitamin D deficiency Start: 07-31-2024 End: 07-31-2024 ambulatory KAMALA GOLD Not Available Start: 07-21-2024 End: 07-23-2024 ambulatory Jean Hair Facility:[facility] [place] [facility] Start: 07-01-2024 ambulatory BAG TESTER Chel L Stacey Facil ity:[id number] Start: 06-30-2024 End: 06-30-2024 ambulatory Jean Hair Facility:[facility] Beti bustos Start: 05-07-2024 End: 05-07-2024 Bamboo flowsheet Felicia Salazar [employer]IST Work Phone: [facility] Start: 05-07-2024 End: 05-07-2024 Bamboo flowsheet Felicia Salazar [employer] SPECIALIST Work Phone: [facility] Start: 05-07-2024 End: 05-07-2024 Office outpatient visit 15 minutes Felicia Salazar [employer] SPECIALIST Work Phone: [facility] Comment on above: Lumbar radiculopathy (Primary Dx); [...] Work Phone: [facility] Unsolicited Start: 12-31-2023 End: 12-31-2023 Lab Drop off Jean Hair [facility] Start: 12-31-2023 End: 12-31-2023 ambulatory Jean Hair Facility:[facility] Start: 12-27-2023 End: 12-27-2023 ambulatory Jean Hair Facility:[facility] Beti bustos Start: 09-19-2023 End: 09-19-2023 ambulatory FELICIA SALAZAR Not Available Start: 08-29-2023 End: 08-29-2023 ambulatory MD Jean Hair Work Phone: [facility] Work Phone: Start: 08-29-2023 End: 08-29-2023 Patient encounter procedure MD Jean Hair Work Phone: [facility] Ambulatory Work Phone: Start: 08-29-2023 Registered Recurring MD Jean Hair Work Phone: [facility] Work Phone: Start: 08-08-2023 End: 08-08-2023 Admission to same day surgery center MD Jean Hair Work Phone: [facility] Work Phone: Start: 08-08-2023 End: 08-08-2023 ambulatory MD Jean Hair Work Phone: [facility] Work Phone: Start: 07-25-2023 End: 07-25-2023 ambulatory MD Jean Hair Work Phone: [facility] Work Phone: Start: 07-25-2023 End: 07-25-2023 Patient encounter procedure MD Jean Hair Work Phone: [facility] Ambulatory Work Phone: Start: 07-25-2023 Registered Recurring MD Jean Hair Work Phone: [facility] Work Phone: Start: 01-29-2023 End: 01-30-2023 ambulatory Alice Ryan MD Facility:[facility] [place] Start: 12-25-2022 End: 12-26-2022 ambulatory Alice Ryan MD Facility:[facility] [place] Start: 11-27-2022 End: 11-28-2022 ambulatory Alice Ryan MD Facility:[facility] Start: 11-13-2022 End: 11-14-2022 ambulatory Alice Ryan MD Facility:[facility] Start: 06-21-2022 End: 06-22-[address] [...] Phone: Start: 02-06-2024 Comprehensive metabolic panel Tatiana canseco MD Work Phone: Start: 02-06-2024 PROTEIN ELECTRO, RANDOM URINE Tatiana canseco MD Work Phone: Start: 02-06-2024 Serum immunofixation Jean Hair MD Work Phone: Comment on above: Immunofixation shows IgG monoclonal prot ein with lambdalight chain specificity. Start: 08-22-2023 Radiologic examination, osseous survey, complete MD Jean Hair Work Phone: Start: 08-22-2023 Copper measurement Jean Hair MD Work Phone: Comment on above: This test was developed and its performa nce characteristicsdetermined by [employer]. It has not been cleared orapproved by the Food and Drug Administration. Detection Limit = 5Performed at: [facility] [id number] Director: Camila Mckeon MD, Phone: [phone] Start: 08-17-2023 Dual energy X-ray absorptiometry MD Masha Hair Work Phone: Start: 08-13-2023 Bone marrow sampling Jean Hair Start: 08-08-2023 Bone marrow sampling Jean Alejandro Work Phone: Biopsy of breast Jean Hair Comment on above: X2 Biopsy of thyroid Jean ray Comment on above: X2 Bone graft Jean Hair Comment on above: rt hip to right wrist Bone marrow sampling Jean Hair Comment on above: 2015 Cataract (disorder) Jean de león Comment on above: left eye Colonoscopy Jean Hair Comment on above: 2019 Destructive procedure Jean Hair H/O: surgery History of parathyroid surgery Kamala Gold MD Work Phone: Internal fixation of fracture Jean Hair Comment on above: right wrist Malignant neoplasm o f skin (disorder) Jean Hair Comment on above: basal cell excised left eyelid Mohs surgery Jean Hair Comment on above: facial/ left cheek, September 2022, Dr. William agudelo Parathyroidectomy Jean ray Comment on above: 2018 Repair of tendon Jean Hair Comment on above: right thumb then removal of plate and sc rews right wrist Total abdominal hyst erectomy with bilateral salpingo-oophorectomy Jean Hair Plan of Treatment Date Care Activity Detail Author Start: 12-29-2024 ambulatory Ambulatory Facility:[facility] Start: 12-25-2024 ambulatory Ambulatory Facility:[facility] Start: 07-31-2024 End: 07-31-2025 25-hydroxyvitamin D3 [Mass/volume] in Serum or Plasma Vitamin D 25 hydroxy Total Lab Routine History of parathyroid surgery Vitamin D deficiency Expected: 07/31/2024 (Approximate), Expires: 07/31/2025 [facility] Comment on above: Expected: 07/31/2024 (Approximate), Expi res: 07/31/2025 Start: 07-31-2024 End: 07-31-2025 Parathyrin.intact [Mass/volume] in Serum or Plasma PTH, intact Lab Routine History of parathyroid surgery Expected: 07/31/2024 (Approximate), Expires: 07/31/2025 [facility] Comment on above: Expected: 07/31/2024 (Approximate), Expi res: 07/31/2025 Start: 07-31-2024 End: 07-31-2025 Renal function panel Renal function panel Lab Routine History of parathyroid surgery Expected: 07/31/2024 (Approximate), Expires: 07/31/2025 [facility] Comment on above: Expected: 07/31/2024 (Approximate), Expi res: 07/31/2025 Start: 07-31-2024 End: 07-31-2025 Thyrotropin [Units/volume] in Serum or Plasma TSH Lab Routine H/O partial thyroidectomy ([facility]/HCC) Expected: 07/31/2024 (Approximate), Expires: 07/31/2025 [facility] Comment on above: Expected: 07/31/2024 (Approximate), Expi res: 07/31/2025 Start: 07-31-2024 End: 07-31-2025 Thyroxine (T4) free [Mass/volume] in Serum or Plasma T4, free Lab Routine H/O partial thyroidectomy ([facility]/HCC) Expected: 07/31/2024 (Approximate), Expires: 07/31/2025 [facility] Comment on above: Expected: 07/31/2024 (Approximate), Expi res: 07/31/2025 Start: 07-31-2024 End: 07-31-2025 Triiodothyronine (T3) Free [Mass/volume] in Serum or Plasma T3, free Lab Routine H/O partial thyroidectomy ([facility]/HCC) Expected: 07/31/2024 (Approximate), Expires: 07/31/2025 [facility] Work Phone: Comment on above: Expected: 07/31/2024 (Approximate), Expi res: 07/31/2025 Start: 07-31-2024 End: 07-31-2024 Patient encounter procedure [facility] Comment on above: Arrived Start: 05-07-2024 End: 05-07-2024 Patient encounter procedure [facility] Comment on above: Arrived Start: 08-08-2023 End: 08-08-2023 [facility] Start: 08-08-2023 Bone marrow sampling [facility] Start: 1991 Screening for malignant neoplasm of breast Mammogram [facility] Start: 1950 Screening for malignant neoplasm of colon [facility] Aeqm-7-Kwnfyoiqyeumg [Mass/volume] in Serum or Plasma [facility] Dacd-6-Hhfskyxnitval [Mass/volume] in Serum or Plasma [facility] Waak-4-Fyrxibvqxjrbq [Mass/volume] in Serum or Plasma [facility] Bone marrow sampling [facility] Ceruloplasmin [Mass/volume] in Serum or Plasma [facility] Comprehensive metabo lic 1999 panel - Serum or Plasma [facility] Comprehensive metabo lic 1999 panel - Serum or Plasma [facility] Copper measurement [facility] DXA Skeletal system. axial Views for bone density [facility] FREE K+L LT CHAINS, QN, S FREE K +L LT CHAINS, QN, S Lab Routine 02/06/2024 9:15 AM EST [facility] Work Phone: Patient Education [facility] Bone Marrow Aspiration or Biopsy Know your [facility] Work Phone: [facility] Immunizations Immunization Date Immunization Notes Care Provider Fa cility 12-14-2023 influenza virus vacc ine, unspecified formulation Jean Hair [facility] 12-13-2021 SARS-CoV-2 (COVID-19 ) [id number] Jean Hair [facility] Comment on above: Result Comment: 2022: [id number] 12-05-2021 influenza virus vacc ine, unspecified formulation Jean Hair [facility] 08-22-2021 SARS-CoV-2 (COVID-19 ) mRNA-1273 vaccine Jean Hair [facility] Comment on above: Result Comment: 2022: [id number] 01-03-2021 SARS-CoV-2 (COVID-19 ) mRNA-1273 vaccine Jean Hair [facility] Comment on above: Result Comment: 2022: [id number] 05-11-2020 SARS-CoV-2 (COVID-19 ) mRNA-1273 vaccine Jean Hair [facility] 04-14-2020 SARS-CoV-2 (COVID-19 ) mRNA-1273 vaccine Jean Hair [facility] 12-03-2019 pneumococcal polysaccharide vaccine, 23 valent Jean Hair [facility] 11-21-2018 pneumococcal conjuga te vaccine, 13 valent Jean Hair [facility] 04-27-2016 influenza virus vacc ine, unspecified formulation Jean Hair [facility] 12-04-2014 influenza virus vacc ine, unspecified formulation Jean Hair [facility] Payers Date Payer Category Payer Private Health Insurance [employer] [id number] 2023 Self-pay [id number] 2023 Unknown [id number] 2022 Unknown 2016 Medicare 1958 Medicare [id number] 1959 Unknown [id number] 1950 Unknown [id number] 2.16.840.1.323131.3.579. 2.593 1951 Unknown [id number] 2.16.840.1.841337.3.579. 2.593 1951 Unknown [id number] 2.16.840.1.802146.3.579. 2.593 1951 Unknown [id number] 2.16.840.1.142036.3.579. 2.593 1951 Unknown [id number] 2.16.840.1.437650.3.579. 2.593 1951 Unknown [id number] 2.16.840.1.816173.3.579. 2.593 1951 Unknown [id number] 2.16.840.1.279369.3.579. 2.593 1951 Unknown [id number] 2.16.840.1.204713.3.579. 2.196 1951 Unknown [id number] 2.16.840.1.874546.3.579. 2.196 1951 Unknown [id number] 2.16.840.1.686459.3.579. 2.196 1951 Unknown [id number] 2.16.840.1.778538.3.579. 2.196 1951 Unknown [id number] 2.16.840.1.951303.3.579. 2.1259 1951 Unknown [id number] 2.16.840.1.834858.3.579. 2.9 1951 Unknown [id number] 2.16.840.1.137397.3.579. 2.1259 1951 Unknown [id number] 2.16.840.1.696445.3.579. 2.727 1951 Unknown [id number] 2.16.840.1.226400.3.579. 2.72 1951 Unknown [id number] 2.16.840.1.340601.3.579. 2.72 1951 Unknown [id number] 2.16.840.1.412610.3.579. 2. 1950 Unknown [id number] 2.16.840.1.538977.3.579. 2.727 1951 Unknown [id number] 2.16.840.1.110484.3.579. 2.72 1951 Unknown [id number] 2.16.840.1.425665.3.579. 2.72 1951 Unknown [id number] 2.16.840.1.487808.3.579. 2. 1950 Unknown [id number] 2.16.840.1.274231.3.579. 2.72 1951 Unknown [id number] 2.16.840.1.657435.3.579. 2.72 1951 Unknown [id number] 2.16.840.1.730198.3.579. 272 Unknown [facility] [id number] Unknown [id number] 2.16.840.1.251165.3.579. 2.531 Social History Date Type Detail Facility Tobacco smoking stat [facility] Unknown if ever smoked [facility] Work Phone: Start: 1950 Sex Assigned At Female [facility] Start: 07-25-2023 End: 08-08-2023 Tobacco smoking status NHIS Never smoked tobacco (finding) [facility] Start: 09-19-2023 End: 07-31-2024 Sex Assigned At Female [facility] Start: 09-19-2023 [facility] History of tobacco use Cigarette Smoker N [facility] Start: 09-19-2023 Tobacco use and exposure Smokeless tobacco non-user [facility] Start: 09-19-2023 End: 05-07-2024 Alcoholic beverage intake Not Asked [facility] Start: 09-19-2023 End: 07-31-2024 History of Social function [facility] Start: 1950 Sex assigned at Not on file [facility] Start: 07-14-2024 End: 07-31-2024 Alcoholic beverage intake Lifetime non-drinker (finding) [facility] Sex Female (finding) [facility] Clinical Notes 09-02-2018 to 05-07-2024 Felicia Salazar [...] follows with Dr. Lopes (rheumatology) and Dr. Doulgas (hematology) for MGUS. She states hematology completed [...] wrist extensors , wrist flexor , and modeling analyst strength 5/5. LUE strength deltoid , biceps , triceps , wrist extensors , wrist flexor , and modeling analyst strength 5/5. RLE strength iliopsoas, quadriceps, tibialis [...] reflex 0. LLE knee reflex 0. Coordination: Cxoerm-zz-dpcr testing normal. Rapid alternating movements are normal. [...] syndrome, with unspecified organ involvement (HCC) (CMS/HCC) The patient is established with rheumatology for [...] the office as needed. Felicia Salazar NP [facility] Advanced Neurology documented in this encounter [facility] 12-31-2023 Note Nurse Consultation N ote [...] naproxen, 500 mg, Oral, PRN Potassium Chloride (Knp-Nsvi-Gxx 10) 10 mEq oral tablet, extended release, 10 mEq= 1 tab(s), Oral, Daily, 1 refills Vitamin D3 2000 intl units oral Tab, 50 mcg, Oral, Daily Allergies Demerol (Nausea) Neurontin (Unknown) Percocet (Nausea) morphine (Nausea) sulfa drugs (Unknown) Immunizations Vaccine Date Status Comments influenza virus vaccine, inactivated 12/14/2023 Recorded SARS-CoV-2 (COVID-19) [id number] 12/13/2021 Recorded 2022-07-24: [id number] influenza virus vaccine, inactivated 12/05/2021 Recorded SARS-CoV-2 (COVID-19) mRNA-1273 vaccine 08/22/2021 Recorded 2022-07-24: [id number] SARS-CoV-2 (COVID-19) mRNA-1273 vaccine 01/03/2021 Recorded 2022-07-24: [id number] SARS-CoV-2 (COVID-19) mRNA-1273 vaccine 05/11/2020 Recorded SARS-CoV-2 (COVID-19) mRNA-1273 vaccine 04/14/2020 Recorded pneumococcal 23-valent vaccine 12/03/2019 Recorded pneumococcal 13-valent vaccine 11/21/2018 Recorded influenza virus vaccine, inactivated 04/27/2016 Recorded influenza virus vaccine, inactivated 12/04/2014 Recorded [facility] 09-02-2018 History of Present illness Narrative [...] - PTH, intact; Future H/O partial thyroidectomy ([facility]) - T3, free; Future - T4, free; [...] and partial thyroidectomy. documented in this encounter [facility] Evaluation + Plan note Future Appointments Appointment Date:07/07/2024 09:15:00 AM Scheduled Provider:Jean Hair MD Location:[facility] Appointment Type: Open Appointment Date:12/25/2024 09:30:00 AM Scheduled Provider: Location:[facility] Appointment Type: Medicare Wellness Subsequent Diagnostic Tests PendingHCV Antibody RFX to Quant PCR 12/31/23 [facility] Evaluation note No assessment inform ation available [facility] Work Phone: Evaluation note Diagnosis Onset Date Peripheral neuropathy acute History of parathyroidectomy chronic MGUS (monoclonal gammopathy of unknown significance) chronic Osteoporosis chronic Sjogrens syndrome chronic [facility] Work Phone: Evaluation note* Diagnosis Onset Date Resolution Status Peripheral neuropathy acute History of parathyroidectomy chronic MGUS (monoclonal gammopathy of unknown significance) chronic Osteoporosis chronic Sjogrens syndrome chronic MGUS (monoclonal gammopathy of unknown significance) chronic Peripheral neuropathy acute History of parathyroidectomy chronic MGUS (monoclonal gammopathy of unknown significance) chronic Osteoporosis chronic Sjogrens syndrome chronic [facility] Work Phone: Evaluation note* Diagnosis Lumbar radiculopathy- Primary Thoracic or lumbosacral neuritis or radiculitis, unspecified Degeneration of intervertebral disc of lumbar region, unspecified whether pain present Gait instability Abnormality of gait Sjogren's syndrome, with unspecified organ involvement (HCC) ([facility]) Numbness of left hand [facility] Diagnosis History of parathyroid surgery- Primary H/O partial thyroidectomy ([facility]) Vitamin D deficiency documented [facility] Diagnosis Onset Date Resolution Status Admit Date Peripheral neuropathy acute Kit 2024 2:16pm History of parathyroidectomy chronic August 28, 2024 2:16pm MGUS (monoclonal gammopathy of unknown significance) chronic August 28, 2024 2:16pm Osteoporosis chronic August 28, 025 2:16pm Sjogrens syndrome chronic August 282024 2:16pm [facility] Work Phone: Hospital course Narrative No data available for this section [facility] Hospital Discharge instructions No data available for this section [facility] Discharge instructionsAmbulatory Orders* Oncology Histology Time Frame: 1 Day, Location: Determined By Patient [facility] Work Phone: Progress note Author Tatiana Douglas [facility] July 25, 2023 2:25pm Note Date/Time July 25, 2023 10:06 am [facility] [place] [address] Cancer Center Note Signed Patient: Sina Perez MR#: [id number] : 1950 Acct:[id number] Age/Sex: 73 / F Type: DEP AMB [...] the past 6 years. Skeletal survey in 2016 previously reviewed with the patient without lytic [...] kappa lambda light chain analysis since 2018. Iwill order these and followup skeletal survey. She [...] to pain injections and spinal ablation at [facility]. M spikehas now trended up to [...] Plan: We are requesting outside records from [facility] for her spinal procedures for peripheral neuropathy and any imaging that they have performed. Proceed with bone marrow biopsy for workup of possible progression of MGUS to myeloma. (3) Osteoporosis: Plan: Due to hypercalcemia the patient was [facility] which revealed lumbar spine T score 1.1, normal range and right femoral neck T score -2.8 consistent with osteoporosis. This should be repeatedevery 2 years, and she remains on Boniva therapy without calcium and vitamin D due to hypercalcemia. No acute bony abnormalities are punched out lytic lesions on bone survey 01/19/2021 at [facility]. -- Patient was told by Dr. [...] to genetics ( sees clinic here at [facility] once monthly) for evaluation of multiple endocrine [...] with labs prior. Please request records from [place] from February 2023. CHEMO PLAN No Active Chemotherapy History of Present Illness HPI 07/25/2023: Sina is here for 2-year follow-up of MGUS. When I last saw her in clinic, I referred back to primary care and nephrology for following her symptoms, however she was asked to return for review of her laboratories. Sincebety was last seen she underwent 3 nerve block procedures at [facility] with neurology (Dr. 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 [place]/lambda light chain ratio is normal however there [...] persistent joint stiffness on Plaquenil. Labs from [facility] reviewed from 07/07/2021 showing normal CBC, [...] She also had a thyroid ultrasound at [place] which is not available for my review [...] visit for MGUS and go over labs [facility] Medical History Medical History Fibromyalgia Multinodular goiter [...] Total Protein 7.1 Albumin 4.4 Globulin 2.7 [facility] labs reviewed: White blood cell count [...] signed by MD Tatiana Douglas> 07/25/23 1425 [facility] Work Phone: Progress note No data available for this section [facility] Reason for referral (narrative)No reason for referral information availablePremier [facility] Work Phone: Summary Purpose Family History No [...] unknown significance) Osteoporosis Sjogrens syndrome Chief Complaint Admit Date Follow Up 6 Months August 28, 2024 2:16 pm MGUS August 28, 2024 2:43 pm Reason for Visit Admit Date Peripheral neuropathy August 28, 2024 2: 16pm History of parathyroidectomy August 28, 2024 2:16pm MGUS (monoclonal gammopathy of unknown s ignificance) August 28, 2024 2:16pm Osteoporosis August 28, 2024 2:16 pm Sjogrens syndrome August 28, 2024 2:16 pm Additional Source Comments INFORMATION SOURCE (unrecogn ized section and content) DATE CREATED AUTHOR 08/13/2021 [facility] DATE CREATED AUTHOR AUTHOR'S ORGANIZ ATION 07/05/2022 [facility] DATE CREATED AUTHOR AUTHOR'S ORGANIZ ATION 02/02/2023 [facility] DATE CREATED AUTHOR AUTHOR'S ORGANIZ ATION 01/01/2024 [facility] ical Center DATE CREATED AUTHOR AUTHOR'S ORGANIZ ATION 01/02/2024 [facility] ical Center DATE CREATED AUTHOR AUTHOR'S ORGANIZ ATION 01/03/2024 Manzanares Bonner [facility] ical Center DATE CREATED AUTHOR AUTHOR'S ORGANIZ ATION 08/02/2024 [facility] EPIC DATE CREATED AUTHOR AUTHOR'S ORGANIZ ATION 08/30/2024 [facility] DATE CREATED AUTHOR AUTHOR'S ORGANIZ ATION 12/09/2024 [facility] Goals (unrecognized section and content) Goals may be documented in a n alternate sectionGoals may be documented in an alternate sectionGoals may be documented in an alternate sectionGoals may be documented in an alternate section No data available for this sectionGoals may be documented in an alternate [...] Care Provider Active Start: July 25, 2023 Well Tester Relationship Specialty Start Date End Date Jean Hair MD PCP - General Family Medicine 09/19/23 Well Tester Relationship Specialty Start Date End Date Jean Hair MD PCP - General Family Medicine 09/19/23 Well Tester Relationship Specialty Start Date End Date Jean Hair MD [address] [place], [place] [phone] PCP - General Family Medicine 05/01/24 Felicia Salazar NP [address] [phone] Nurse Practitioner Neurology 05/07/24 Well Tester Relationship Specialty Start Date End Date Jean Hair MD [address] [place], [place] [phone] PCP - General Family Medicine 05/01/24 Felicia Salazar NP [address] [phone] Nurse Practitioner Neurology 05/07/24 Adithya Thomas DO [address] [address] Referring Physician Neurology 05/07/24 Well Tester Relationship Specialty Start Date End Date Jean Hair MD [address] [place], [place] [phone] PCP - General Family Medicine 05/01/24 Felicia Salazar NP [address] [phone] Nurse Practitioner Neurology 05/07/24 Adithya Thomas DO [address] [address] Referring Physician Neurology 05/07/24 Well Tester Relationship Specialty Start Date End Date Jean Hair MD [address] [place] [address] PCP - General Family Medicine 05/01/24 Felicia Salazar NP [address] [phone] Nurse Practitioner Neurology 05/07/24 Adithya Thomas DO [address] [phone] Referring Physician Neurology 05/07/24 Team Status: Inactive Member Role Status Dates Jean Hair MD Primary Care Provider Active Start: August 28, 2024 End: August 28, 2024 Tatiana Douglas MD Attending Provider Active Start: August 28, 2024 End: August 28, 2024 Team Status: Active Member Role Status Dates Tatiana Douglas MD Attending Provider Active Start: August 28, 2024 Jean Hair MD Primary Care Provider Active Start: August 28, 2024 Reason for Visit (unrecogniz ed section and content) Reason Comments Back Pain Numbness Reason Comments Hypercalcemia Specialty Diagnoses / Procedures Referred By Contac t Referred To Contact Endocrinology Diagnoses Hypoparathyroidism, unspecified Other obesity due to excess calories Procedures WI OFFICE/OUTPATIENT NEW LOW MDM 30 MINUTES Jean Hair MD [address] [place] [address] Phone: tel: Kamala Gold MD [address] [place] [address] Phone: tel: fax: Referral ID Status Reason Start Date Expiration Date Visits Re quested Visits Authorized [id number] Closed 07/02/2024 12/29/2024 1 1 FOR RECORDS [...] BE BASED ON THE PRIMARY CLINICAL RECORDS. [employer] provides no warranty or guarantee of the accuracy or completeness of information in this document.
[2024-12-15 10:56] LABS: Hematocrit 40.7 % (36.0-48.0); Hemoglobin 13.4 g/dL (12.0-16.0); Immature Granulocytes Abs Auto 0.01 10^3/uL (0.00-0.03); Immature Granulocytes Pct Auto 0.2 % (0.0-0.5); Lymphocytes Absolute Auto 0.9 10^3/uL (1.2-3.8); Mean Corpuscular HGB Conc 32.9 g/dL (29.9-35.2); Mean Corpuscular Hemoglobin 31.0 pg (26.7-34.0); Mean Corpuscular Volume 94.2 fL (81.0-99.0); Platelet Count 218 10^3/uL (150-450); Red Blood Count 4.32 10^6/uL (4.20-5.40); White Blood Count 4.8 10^3/uL (4.0-11.0)
[2024-12-15 11:13] LABS: Alanine Aminotransferase 25 U/L (14-59); Albumin Globulin Ratio 1.0; Albumin Level 3.9 g/dL (3.4-5.0); Alkaline Phosphatase 95 U/L (46-116); Anion Gap 13.5; Aspartate Amino Transferase 28 U/L (15-37); Blood Urea Nitrogen 32.0 mg/dL (7.0-18.0); Calcium 9.2 mg/dL (8.5-10.1); Carbon Dioxide 27.6 mmol/L (21.0-32.0); Chloride 107 mmol/L (98-107); Estimated GFR (African America >60 (>=60 mL/min/1.73m^2); Estimated GFR (Non-African Ame >60 (>=60 mL/min/1.73m^2); Globulin 3.9 g/dL; Glucose 89 mg/dL (74-106); Potassium 4.1 mmol/L (3.5-5.1); Sodium 144 mmol/L (136-145); Total Protein 7.8 g/dL (6.4-8.2)
== END 2024-12-15 10:22 | disposition home or self-care (01) ==
LOC: LAB 10:24
PROVIDERS: PCP Nurse Practitioner; Visit Provider Internal Medicine Rheumatology
DX: M79.2 Neuralgia and neuritis, unspecified (principal); M35.00 Sjogren syndrome, unspecified; Z79.899 Other long term (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 therapy
CPT/HCPCS: 36415; 80053; 85025

== ENCOUNTER 2025-01-28 09:26 | Outpatient (OUT) | payer MEDICARE, OTHER, SELFPAY ==
--- OUTSIDE RECORDS SUMMARY | 2025-01-28 09:32 | XMS_ITS | Clinical Summary ---
Author Organization [facility] Address [address] [facility] [place] [address] Phone Care Team Providers Care Histologic Aide Name Role Phone Unavailable Primary Care Provider Unavailabl e Social History Tobacco UseTypesPacks/DayYears UsedDateSmoking Tobacco: Never Assessed CommentsUnknownSex and Gender InformationValueDate RecordedSex Assigned at Not on fileLegal KfjTybmrh54/26/2022 3:37 AM ESTGender IdentityNot on fileSexual OrientationNot on file Plan of Treatment Not on file
--- OUTSIDE RECORDS SUMMARY | 2025-01-28 09:32 | XMS_ITS | Patient Health Record ---
Author Organization [facility] [place] Address [address] [place] [address] Support Name Relationship Address Phone Misty Perez Guarantor Unknown [phone] Reason For Referral No Information Medications Medication SIG (Take, Route, Frequency, Duration) Notes Start Date End Date Status Nyamyc 391405 UNIT/GM External as needed ActiveCaltrate 600+D 600-400 MG-UNITOral daily Active Ibandronate Sodium 150 MGOral once a month ActiveLevothyroxine Sodium 88 MCGOral daily ActiveMultivitaminsOral daily Active Ciprofloxacin HCl 500 MGOral as ofskol5803/05/1899Active Plan Of Treatment No Information Insurance Providers Payer Name Payer Address Payer Phone Subscriber Number Group Number Insured Name Patient Relationship to Insured Coverage Start Date Coverage End Date [employer] [id number], SusanSelf - patient is the insured Medical (General) History Surgical History Surgery Date(Month/Year) Hysterectomy Breast BiopsyCystoscopyORIF right wristBone Graft
--- OUTSIDE RECORDS SUMMARY | 2025-01-28 09:32 | XMS_ITS | Clinical Summary ---
Author Organization [facility] Address [facility] [place] [address] Care Team Providers Care Enrollment Advisor Name Role Phone Carol Kennedy MD Primary Care Provider Allergies Active AllergyReactionsCriticalityNoted DateComments Sulfamethoxazole-EmwxaifshocmLruyexu75/30/2001AtbyxUuabplo73/30/2015Sulfa (Sulfonamide Antibiotics)Robbzsv6309/01/2014 Medications MedicationSigDispense QuantityRefillsLast FilledStart DateEnd DateStatus Ibandronate (BONIVA) 150 mg tablet Take 1 tablet by mouth once every month.ctive Levothyroxine 75 mcg cap Take by mouth.ctive lisinopril (ZESTRIL, PRINIVIL) 10 mg tablet Take 10 mg by mouth once daily.Active omeprazole (PRILOSEC) 20 mg capsule Take 20 mg by mouth once daily.Active Active Problems ProblemNoted DateDiagnosed DateDisturbance of salivary ygyjdezpa38/27/2015 Family History Medical HistoryRelationCommentsCancerFatherCancerMaternal GrandmotherHeart Maternal GrandmotherHeartMotherHeartPaternal GrandfatherRelationStatusComments FatherMaternal GrandmotherMotherPaternal Grandfather Social History Tobacco UseTypesPacks/DayYears UsedDateSmoking Tobacco: NeverAlcohol UseStandard Drinks/WeekCommentsNo0 (1 standard drink = 0.6 oz pure alcohol)Comments UnknownSex and Gender InformationValueDate RecordedSex Assigned at BirthNot on fileLegal YpaLfkbgl43/19/2015 2:06 PM EDTGender IdentityNot on fileSexual OrientationNot on file Last Filed Vital Signs Vital SignReadingTime TakenCommentsBlood Ibgsbwuh550/6807 2:41 PM EDT Wcovw420909/28/2014 2:41 PM FKRLnqsbecwtut10.4 ??C (97.5 ??F)09/28/2014 2:14 PM EDTRespiratory Saqw507409/28/2014 2:41 PM EDTOxygen Gysgelyxfb85%09/28/2014 2:41 PM EDTInhaled Oxygen Concentration--Weight--Height--Body Mass Index-- Plan of Treatment Health MaintenanceDue DateLast DoneCommentsAnxiety Eaavjrkvz44/05/1970Depression Zjcbcueyp97/05/1970Hepatitis C Jrywtxzep43/05/1970DTaP,Tdap,Td Vaccine (1 - Tdap)1970Mammogram Hoktdjvhj57/05/1992CT Djgriqbowlus31/05/1997Cologuard (FIT-DNA)03/09/19966629Zjevwqpuxlf57/05/1997Colorectal Cancer Hotoizima88/05/1997 Diabetes Vbwphsjnv51/05/1997Fecal Occult Blood1996Lipid Screening 03/09/19964595Alpeouumhpard95/05/1997Pneumococcal Vaccine: 50+ (1 of 1 - PCV) 2001Shingrix Vaccine (1 of 2)2001Bone Density Vzdxsgdlc84/05/2017 Advance Directive Lmavesohlz32/01/2025ovid-19 Vaccine (1 - 2024- season) 2024Influenza Vaccine (#1)2024RSV Vaccine (1 - 1-dose 75+ series) 2026 Care Teams Team MemberRelationshipSpecialtyStart DateEnd Carol Kennedy MD [address] [place] [address] PCP - GeneralFamily Medicine07/21/14
--- OUTSIDE RECORDS SUMMARY | 2025-01-28 09:32 | XMS_ITS | Clinical Summary ---
Author Organization [facility] Address [address] [place] [address] Care Team Providers Care Intel Recruiter Name Role Phone Miguel Allen MD Primary Care Provider [phone] Felicia Bauer GOLD BEATER Unavailable [phone] Adithya Thomas DO Unavailable Allergies Active AllergyReactionsCriticalityNoted DateComments Sulfamethoxazole-Aekbrbnwyvhj18/14/1089Ltjitxghpt40/14/2024LatexUnknown 09/01/2014 Other Reaction(s): blisters at site of contact MeperidineGI gkxatoujgrh82/26/2024Meperidine HclNausea Only09/19/2023Morphine Nausea Only08/29/2023OxycodoneGI cxmpralcljz84/26/2024Sulfa Antibiotics 09/16/20239466HoqprhdyevzeVlpqc89/26/2024 Medications MedicationSigDispense QuantityRefillsLast FilledStart DateEnd DateStatus triamcinolone (Kenalog) 0.1 % cream Apply 1 application topically 2 (two) times a weekActive naproxen sodium (Aleve) 220 MG tablet Take 220 mg by mouth every 12 (twelve) hoursActive acetaminophen (Tylenol 8 Hour) 650 MG ER tablet Take 650 mg by mouth every 8 (eight) hours if needed for mild pain Do not crush, chew, or split.Active cholecalciferol (Vitamin D-3) 50 MCG (1999 UT) capsule Take 2,000 Units by mouthActive furosemide (Lasix) 20 MG tablet Take 20 mg by mouth DailyActive lisinopril 10 MG tablet Take 10 mg by mouth DailyActive levothyroxine (Synthroid, Levoxyl) 50 MCG tablet Take 50 mcg by mouth in the morning. Take before meals.Active atorvastatin (Lipitor) 10 MG tablet Take 10 mg by mouth DailyActive hydroxychloroquine (Plaquenil) 200 MG tablet Take 200 mg by mouth TWICE A DAY - BUT ALTERNATE EVERY OTHER DAY WITH ONCE DAILY WITH FOODActive ibandronate (Boniva) 150 MG tablet Take 150 mg by mouth every 30 (thirty) days Take in morning with full glass of water on an empty stomach. No food, drink, meds, or lying down for 60 minutes after.Active potassium chloride ER (Micro-K) 10 MEQ ER capsule Take 10 mEq by mouth in the morning and 10 mEq before bedtime. Do not crush or chew.Active ketoconazole (NIZOral) 2 % cream Apply 3 application topically DailyActive metroNIDAZOLE (Metrocream) 0.75 % cream Apply 2 application topically in the morning and 2 application before bedtime. for 90 days, Notes to Pharmacist: Rosacea.Active omeprazole (PriLOSEC) [address] capsule Take 20 mg by mouth in the morning.Active nortriptyline (Pamelor) 10 MG capsule Take 10 mg by mouth02/28/2023ctive Active Problems ProblemNoted DateDiagnosed DateNeuropathic pain09/16/2023Sjogren's syndrome 09/16/2023 Overview (09/16/2023): The patient does see rheumatology for unspecified Sjogren's disease (SICCA syndrome per some notes from PCP). PLAN: - Follow closely with rheumatology for management Lumbar dvdvlnfoujshb19/14/2024 Overview (09/16/2023): It is my impression that the patient has lumbar radiculopathy. BLE EMG on 02/16/22 revealed bilateral L5 radiculopathies. Lumbar MRI on 02/10/22 revealed multilevel spondylosis from L2-S1 including central canal narrowing and neuroforaminal narrowing. The patient has low back pain with radicular symptoms. Bilateral L4 epidural injections on 09/26/22 were beneficial (> 50% pain reduction), thougheffects were short-lived, so the patient was referred to pain management. Radiofrequency ablation in late 2022 was highly effective, and Tylenol is helpful. Pain management has reportedly recommendednortriptyline, but the patient believes symptoms are well [...] She verbalizes understanding DDD (degenerative disc disease), zonlap5009/16/2023 Overview (09/16/2023): The patient has degenerative disc disease of the lumbar spine as evidenced by previous MRI. PLAN: - See above Gait jvbwyhkphnu16/14/2024 Overview (09/16/2023): The patient previously presented with [...] for increased stability - Fall prevention discussed Family History Medical HistoryRelationNameCommentsCancerFatherStrokeMaternal GrandfatherAlcohol abuseMotherCoronary artery diseaseMotherHyperlipidemiaMotherHypertensionMother Irritable bowel syndromeMotherOsteoporosisMotherStrokeMotherStrokeMother's SisterStrokePaternal GrandmotherAllergiesSisterRelationNameStatusCommentsBrother AliveFatherDeceasedMaternal GrandfatherMotherDeceasedMother's SisterPaternal GrandmotherSisterAlivex2 Social History Tobacco UseTypesPacks/DayYears UsedDateSmoking Tobacco: Every DayCigarettes Smokeless Tobacco: Never Tobacco Cessation:Ready to Q uit: Not Asked; Counseling Given: Not Answered Alcohol UseStandard Drinks/WeekCommentsNever0 (1 standard drink = 0.6 oz pure alcohol)CommentsUnknownSex and Gender InformationValueDate RecordedSex Assigned at BirthNot on fileLegal NxzQatwtl90/15/2023 7:22 PM EDTGender Identity Not on fileSexual OrientationNot on file Last Filed Vital Signs Vital SignReadingTime TakenCommentsBlood Fqxjooln238/8804/ 9:37 AM EDT Vpuqm1152 9:51 AM EDTTemperature--Respiratory Csed550807/31/2024 9:51 AM EDTOxygen Encifdijva45%07/31/2024 9:51 AM EDTInhaled Oxygen Concentration-- Gfshrt31.4 kg (164 lb)07/31/2024 9:51 AM YPFSzdevi772.9 cm (4' 11 )07/31/2024 9:51 AM EDTBody Mass Index33.12007/31/2024 9:51 AM EDT Plan of Treatment DateTypeDepartmentCare Team (Latest Contact Info)Teozmldifqd25/04/2025 10:00 AM ESTOffice Visit [facility] [address] [place] [address] Kamala Pierce MD [address] [place] [address] Health MaintenanceDue DateLast DoneCommentsCT Ezvktjofaozz81/05/1952Colonoscopy 2Colorectal Cancer Hhjvmxkpt19/05/1952FIT-DNA1951FIT1951 FOBT1951 6088Rpsiclxzmdcyz77/05/6075Fsfiktyyq34/05/1992COVID-19 Vaccine ( season)51, 08/22/2021, 01/03/2021, Additional history existsPneumococcal Vaccine: 65+ NfkxcIghysexid58/30/2020, 11/21/2018Influenza UgalybcUybtajota54/06/2025, 12/14/2023, 12/05/2022, Additional history exists Insurance Care Teams Team MemberRelationshipSpecialtyStart DateEnd Miguel Allen MD [address] [phone] PCP - GeneralFamily Medicine05/01/24 Felicia Bauer NP [address] [place], [place] [phone] Nurse PractitionerNeurology05/07/24 Adithya Thomas DO [address] [place] [phone] Referring PhysicianNeurology05/07/24
--- OUTSIDE RECORDS SUMMARY | 2025-01-28 09:34 | XMS_ITS | CCD ---
Author Organization [facility] Care Team Providers Care Maintenance Supervisor 2Nd Shift Name Role Phone KENNEDY ., DR GER [...] ., DR GER Vyas Primary Care Unavailable NILSON, DR SINGH Admitting Unavailable HALADADeacon, DR SINGH Attending Unavailable KENNEDY ., DR GER Vyas Admitting Unavailable KENNEDY ., DR GER Vyas Attending Unavailable KENNEDY ., DR GER Vyas Consulting Unavailable KENNEDY ., DR GER Vyas Primary Care Unavailable DR NOEMI CHAVARRIA Consulting Unavailable Connor BRADFORD, Alice Miranda Attending Unavailable Connor BRADFORD, Alice Miranda Attending Unavailable Connor BRADFORD, Alice Miranda Attending Unavailable Connor BRADFORD, Alice Miranda Attending Unavailable MD Tatiana Douglas Attending Provider MD Jean Hair Primary Care Provider MD Jean Hair Primary Care Provider [phone] MD Tatiana Douglas Attending Provider [phone] Jean Hair Primary Care Physician Jean Hair Attending Unavailable Jean Hair Admitting Unavailable Jean Hair MD Primary Care Provider Jean Hair MD Primary Care Provider Felicia Bauer NP Unavailable Adithya Thomas DO Unavailable FELICIA BAUER Attending Unavailable KAMALA PIERCE Attending Unavailable JEAN HAIR Referring Unavailable FELICIA BAUER Attending Unavailable Jean Hair MD Primary Care Provider Tatiana Douglas MD Attending Provider Tatiana Douglas Attending Unavailable Tatiana Douglas Admitting Unavailable Jean Hair Primary Care Unavailable Jean Hair Attending Unavailable Jean Hair Attending Unavailable Stacey, Chel L Attending Unavailable Stacey, Chel Pleitez Attending Unavailable Stacey, Chel L Attending Unavailable Stacey, Chel L Admitting Unavailable Stacey, Chel L Admitting Unavailable Stacey, Chel L Attending Unavailable Stacey, Chel L Attending Unavailable Jean Hair Attending Unavailable Jean Hair Attending Unavailable Jean Hair Attending Unavailable Stacey, Chel L Attending Unavailable Stacey, Chel L Admitting Unavailable Stacey, Chel L Attending Unavailable Stacey, Chel L Attending Unavailable Allergies Allergy ClassificationReported Allergen(s)Allergy TypeDate of OnsetReaction(s) FacilityAnti-Epileptic Agents (1 source)gabapentinDrug Fuiimqw77-24-4622UkumsqqcFvkkfuuza Regional Medical CenterDihydrofolate Reductase Inhibitors (antibiotic) (1 source)TrimethoprimDrug Nxqpimt38-12-6392IstkhFpwelhunfRiverside Methodist HospitalLatex (1 source)LatexSubstance Ptgfirc60-32-4706jlfwvwnn at site of contactOhiohealthOpioid Agonists (3 sources)MeperidineDrug Fusbtyh79-32-5570CrnilpSulwgyceoRegency Hospital Cleveland Eastulfonamides (antibiotic) (1 source)SulfamethoxazoleDrug Yfjndux34-99-1975IlqxfPgtwwkfdzRiverside Methodist Hospital (5 sources)gabapentinDrug Xxtmlwa73-87-0093EiblgozpKli [facility] RepositoryComment on above:muscle spasm (1 source)Sulfamethoxazole / TrimethoprimDrug AllergyThe [facility] Repository (1 source)Sulfonamides (Antibiotic)Drug allergy (disorder)97-60-7459IjrMercy Health West Hospital Repository (15 sources)Latex; Translations: [latex]Allergy to dorfddlzf76-32-0231Gtpjgiq [facility] (16 sources)Meperidine; Translations: [Meperidine]Drug Xtwiyez97-55-1178Gftugo (finding), GI intoleranceOhiohealth (19 sources)Morphine; Translations: [Morphine]Drug Bdbhivy69-09-6396Zphwxn (finding), Nausea OnlyOhiohealth (15 sources)oxyCODONE; Translations: [oxycodone]Drug Olriokz69-61-6403XR intoleranceOhiohealth (5 sources)Sulfamethoxazole; Translations: [sulfamethoxazole]Drug Allergy 18-10-1730EhapvTcizeniyoPremier Health [facility] (15 sources)Trimethoprim; Translations: [trimethoprim]Drug Htxwkpg42-35-8255 HivesOhiohealth (4 sources)Acetaminophen / oxyCODONE; Translations: [acetaminophen-oxycodone] Drug AllergyNausea (finding)[facility] (14 sources)gabapentin; Translations: [gabapentin]Drug Choavqq62-00-8694Qwjthwb (qualifier value)[facility] (4 sources)Sulfonamides (Antibiotic); Translations: [sulfa drugs]Drug allergy Unknown (qualifier value)[facility] (10 sources)MeperidineDrug Vbbfqnh51-36-6418Xecdtp OnlyTHE [facility] (10 sources)Sulfamethoxazole / TrimethoprimDrug Smdavnh48-92-3495[facility] (10 sources)Sulfonamides (Antibiotic)Propensity to adverse cdhmxhuil07-23-8484 [facility] (1 source)gabapentinDrug Ozlndzs84-03-0365PxfvtgpbpOhiohealth Repository (3 sources)Meperidine; Translations: [Demerol]Drug AllergyCleveland Clinic Repository Medications Current Medications MedicationDrug Class(es)DatesSig (Normalized)Sig (Original)Acetaminophen (11 sources)Start: 74-22-9303iqpreoyedfgtv 650 mg, PRN as needed for pain, Refills(s) 0 Start Date: 12/25/22 Status: Orderedtake 1 tablet by mouth every eight hours as needed for painacetaminophen (Tylenol 8 Hour) 650 MG ER tablet Take 650 mg by mouth every 8 (eight) hours if needed for mild pain Do not crush, chew, or split. Activecarboxymethylcellulose sodium 5 mg/ml ophthalmic solution (1 source)Start: 65-83-5235Gksaiqsjprongxgsprdvgw Sodium (Refresh Tears) 0.5 % Drops (4 sources)Start: 86-58-4171Vmdsbljapqifdxhtirsjtf Sodium (Refresh Tears) 0.5 % Drops Active 1 DROPS OPHTHALMIC 4-12 TIMES PER DAY December 19, 2016 12:00am carboxymethylcellulose-sodium hyaluronate (1 source)Start: 05-84-5184qaaraipquxtncuydhybwhq-sodium hyaluronate See Instructions, Refill(s) 0, 0.5% 1 drop both etes 4-12times a day as needed Start Date: 08/09/23 Status: Orderedcholecalciferol 0.05 mg oral capsule (19 sources)Vitamin DStart: 51-03-8313cpzv 1 capsule by mouth once dailyStart: 12-19-2016 End: 35-36-7408vdjk 1 tablet by mouth once dailyCholecalciferol (Vitamin D3) (Vitamin D3) 5,000 unit Tablet Discontinued 5000 UNIT PO Daily 2016 12:00am June 22, 2017 10:11amcholecalciferol (Vitamin D-3) 50 MCG (2000 UT) capsule Take 2,000 Units by mouth ActiveFluocinonide (5 sources)CorticosteroidStart: 35-79-1075fxbtyxomtlmv Top 0.05% Crm 15 gram See Instructions, Refill(s) 0, 1 torrie Topical to scalp sunday through sunday, none on the weekend Start Date: 08/09/23 Status: OrderedStart: 14-42-4939dndlcqtlkj 20 mg oral tablet (16 sources)Loop DiureticStart: 98-99-0055hkku 1 tablet by mouth once daily hydroxychloroquine sulfate 200 mg oral tablet (16 sources)Antimalarial, Antirheumatic AgentStart: 58-15-9471oivd 1 tablet by mouth twice dailyketoconazole 20 mg/ml medicated shampoo (16 sources)Azole AntifungalStart: 73-76-2702penlegukhvmd Top 2% Shampoo 1 torrie, Topical, Every other day, Refill(s) 0 Start Date: 08/09/23 Status:OrderedStart: 13-72-2989Gxsiw: 70-85-5867Qrkbdaiipytk Active 1 APPLIC TOPICAL Daily July 25, 2023 12:00amStart: 79-37-4129mwjonfukukow = 2 %, Topical, Daily, PRN Rash, Refills(s) 0 Start Date: 12/25/22 Status: Orderedlevothyroxine sodium 0.05 mg oral tablet (16 sources)l-ThyroxineStart: 18-71-4953gfno 1 tablet by mouth once daily levothyroxine 50 mcg (0.05 mg) Tab 50 mcg = 1 tab(s), Oral, Daily, # 90 tab(s), Refills(s) 1, Pharmacy: [facility], 146, cm, 08/09/23 10:30:00 EDT, Height/Length Dosing, 70.6, kg, 08/09/23 10:30:00 EDT, Weight Dosing Start Date: 08/09/23 Status: OrderedStart: 95-43-5722kvar 1 tablet by mouth once daily lisinopril 10 mg oral tablet (16 sources)Angiotensin Converting Enzyme InhibitorStart: 13-44-9926zjtp 1 tablet by mouth once dailymetroNIDAZOLE 7.5 mg/ml topical cream (15 sources)Nitroimidazole AntimicrobialStart: 45-87-9540Syydp: 07-24-2022 metronidazole topical 1% cream 1 torrie, Topical, BID, 30 gram, Refill(s) 0, use for rosacea Start Date: 07/24/22 Status: OrderedmetroNIDAZOLE (Metrocream) 0.75 % cream Apply 2 application topically in the morning and 2 application before bedtime. for 90 days, Notes to Pharmacist: Rosacea. Activenaproxen sodium 220 mg oral tablet (15 sources)Nonsteroidal Anti-inflammatory DrugStart: 11-98-8188vdka 1 tablet by mouth twice daily as needed for painStart: 21-94-5858uwnqnmlh 500 mg, Oral, PRN as needed for pain, Refills(s) 0 Start Date: 12/25/22 Status: Orderedtake 1 tablet by mouth every twelve hoursnaproxen sodium (Aleve) 220 MG tablet Take 220 mg by mouth every 12 (twelve) hours Activenortriptyline 10 mg oral capsule (10 sources)Tricyclic AntidepressantStart: 31-16-2279cjdybuxnnmuue (Pamelor) 10 MG capsule Take 10 mg by mouth 02/28/2023 Activetriamcinolone acetonide 1 mg/ml topical cream (10 sources)Corticosteroidtriamcinolone (Kenalog) 0.1 % cream Apply 1 application topically 2 (two) times a week ActiveVitamin D3 2000 intl units oral Tab (1 source)Start: 64-61-8663ntzc 1 tablet by mouth once dailyVitamin D3 2000 intl units oral Tab 50 mcg, Oral, Daily, # 100 cap(s), Refills(s) 0, Pharmacy: [facility] 1155, 149.9, cm, 07/24/22 13:31:00 EDT, Height/Length Dosing, 69.1, kg, 07/24/22 13:31:00 EDT, Weight Dosing Start Date: 07/24/22 Status: Ordered Completed/Discontinued Medications MedicationDrug Class(es)DatesSig (Normalized)Sig (Original)atorvastatin 10 mg oral tablet (20 sources)HMG-CoA Reductase InhibitorStart: 12-19-2016 End: 13-81-6920cwle 1 tablet by mouth once dailyAtorvastatin 10 mg Tablet Discontinued 10 MG PO Daily June 22, 2017 12:00am October 15, 2017 10:46am chlorthalidone 25 mg oral tablet (5 sources)Thiazide-like DiureticStart: 12-19-2016 End: 70-48-0919Lmtmprqdnudhtp 25 mg Tablet Discontinued 12.5 MG PO Daily December 19, 2016 12:00am June 22, 2017 10:11amStart: 12-19-2016 End: 76-92-9510poof 12.5 mg by mouth once dailyChlorthalidone Discontinued 12.5 MG PO Daily December 19, 2016 12:00am June 22, 2017 10:11amibandronic acid 150 mg oral tablet (15 sources)BisphosphonateStart: 12-19-2016 End: 05-25-8839zzul 1 tablet by mouth every monthIbandronate (Boniva) 150 mg Tablet Discontinued 150 MG PO every month December 19, 2016 12:00am August 29, 2023 1:56pmtake 1 tablet by mouth every 30 days in the morningibandronate (Boniva) 150 MG tablet Take 150 mg by mouth every 30 (thirty) days Take in morning withfull glass of water on an empty stomach. No food, drink, meds, or lying down for 60 minutes after. Activeomeprazole 20 mg delayed release oral capsule (15 sources)Proton Pump InhibitorStart: 12-19-2016 End: 84-40-8309fojq 1 capsule by mouth once dailyOmeprazole 20 mg Capsule,Delayed Release(Dr/Ec) Discontinued 20 MG PO Daily December 19, 2016 12:00am October 29, 2017 9:35amPotassium Chloride (16 sources)Start: 61-18-3658xjbt 1 tablet by mouth once dailyPotassium Chloride (Yhg-Uxav-Ojv 10) 10 mEq oral tablet, extended release 10 mEq = 1 tab(s), Oral, Daily, # 90 tab(s), Refills(s) 1, Pharmacy: [facility], 146, cm, 08/09/23 10:30:00 EDT, Height/Length Dosing, 70.6, kg, 08/09/23 10:30:00 EDT, Weight Dosing Start Date: 08/09/23 Status: OrderedStart: 17-91-1805flbd 1 capsule by mouth once daily Problems Active Problems Problem ClassificationProblemDateDocumented DateEpisodic/ChronicComplications of surgical procedures or medical care (2 sources)History of subtotal thyroidectomy; Translations: [Postprocedural hypothyroidism]22-48-2600CvyjnkxDkancllwsj and other anemia (1 source)Vcgldy03-88-5340UbbsgxucLhjtldemg of lipid metabolism (6 sources)Pure hypercholesterolemia, unspecified; Translations: [Hyperlipidemia]Onset: 34-12-5452QkwcyoiNsfllgeky hypertension (1 source)Hypertensive iafszbdc01-51-4734SqcwflnFhbnkjn and fatigue (2 sources)Weakness; Translations: [Other fatigue]Onset: 69-07-0260Xgqjrrkr Neoplasms of unspecified nature or uncertain behavior (17 sources)Monoclonal gammopathy; Translations: [Monoclonal gammopathy of uncertain significance]Onset: 14-65-9457WkzcvozVxunrofkefm deficiencies (4 sources)Vitamin D deficiency, unspecified; Translations: [Vitamin D deficiency]Onset: 473832-24-8361DcjbukjIsixchixsljexw (1 source)Osteoarthritis of lutq68-39-3264RwsgyvyVvqnnnkdprqu (11 sources)Osteoporosis; Translations: [Age-related osteoporosis without current pathological fracture]57-43-6728RgpkyptTrppe bone disease and musculoskeletal deformities (5 sources)Osteopenia; Translations: [Other specified disorders of bone density and structure, unspecified site]18-52-0420XzoabnuxKjmjd connective tissue disease (1 source)Abnormal posture; Translations: [ABNORMAL POSTURE]Onset: 04-28-2022 EpisodicOther connective tissue disease (1 source)Llzeeyhtxjbf47-15-9901NjbrlgsbFmqry endocrine disorders (5 sources)Hyperparathyroidism; Translations: [Hyperparathyroidism, unspecified] 55-12-4029HfahzzzPqyhu endocrine disorders (1 source)Tdjskankergyoftsgu52-87-8102PtdwtxmLxeho nervous system disorders (6 sources)Peripheral nerve disease ; Translations: [Polyneuropathy, unspecified]62-86-6004ParmxwuYxvnm nervous system disorders (4 sources)Polyneuropathy, unspecified; Translations: [Unspecified hereditary and idiopathic peripheral neuropathy]85-70-8732UlupaebYqwxp nervous system disorders (1 source)Unsteadiness on feet; Translations: [UNSTEADINESS ON FEET]Onset: 80-94-8002GnfwysabQdfbk nervous system disorders (1 source)Other abnormalities of gait and mobility; Translations: [OTHER ABNORMALITIES GAIT AND MOBILITY]Onset: 17-09-7380JeymjuqqJbxfn nervous system disorders (1 source)Unspecified abnormalities of gait and mobility; Translations: [UNS ABNORMALITIES GAIT AND MOBILITY]Onset: 87-86-0355HnbblziwOmdxv nervous system disorders (2 sources)Numbness of hand; Translations: [Anesthesia of skin]07-14-2024 EpisodicOther nutritional; endocrine; and metabolic disorders (1 source)Hypercalcemia; Translations: [HYPERCALCEMIA]Onset: 96-15-5997Rgnojbh Other nutritional; endocrine; and metabolic disorders (5 sources)Hypercalcemia; Translations: [Hypercalcemia]41-68-9918YkzehkbGxftd nutritional; endocrine; and metabolic disorders (1 source)Obesity caused by energy qperaqwbq37-69-2175EysiaalKqbtxicj codes; unclassified (6 sources)History of parathyroidectomy; Translations: [Other specified postprocedural states]78-98-3927GrakrjbpFujmgqtd codes; unclassified (4 sources)Other specified postprocedural states; Translations: [Other postprocedural status]54-30-4816BwlrqowmWmwaotajdmn; intervertebral disc disorders; other back problems (12 sources)Degeneration of lumbar intervertebral disc; Translations: [DDD (degenerative disc disease), lumbar]Onset: 179545-64-9445NowhmsuYhjncjor lupus erythematosus and connective tissue disorders (20 sources)Systemic involvement of connective tissue, unspecified; 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]Onset: 19-18-4201Nzbglyz Thyroid disorders (2 sources)Autoimmune thyroiditis; Translations: [Hypothyroidism]Onset: 855293-83-1163OlmmadfLciqwyyuevfp (1 source)LOW BACK PAIN, UNSPECIFIED; Translations: [LOW BACK PAIN, UNSPECIFIED] Onset: 59-29-9836Vpfgyyoaqksq (1 source)Seborrheic nsvmcfoef56-80-0767 Past or Other Problems Problem ClassificationProblemDateDocumented DateEpisodic/ChronicOther aftercare (1 source)Other residential (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 therapy; Translations: [OTH PENITENTIARY CURRENT DRUG THERAPY]Onset: 40-79-4852FznhdbaiVorlt connective tissue disease (10 sources)Neuropathic pain; Translations: [Neuralgia and neuritis, unspecified]Onset: 235169-94-4719PmfhylbfMjiuy nervous system disorders (12 sources)Abnormal gait; Translations: [Unsteadiness on feet]Onset: 09-16-2023 15-18-1553IiyzvfxaZgcnm non-traumatic joint disorders (3 sources)Pain in right knee; Translations: [PAIN IN RIGHT KNEE]Onset: 68-34-6406ZawzakpkUuhqc non-traumatic joint disorders (1 source)Pain in left knee; Translations: [PAIN IN LEFT KNEE]Onset: 02-13-2022 EpisodicOther screening for suspected conditions (not mental disorders or infectious disease) (1 source)Encounter for screening mammogram for malignant neoplasm of breast; Translations: [ENC SCR MAMMO MALIG NEOPLASM BREAST]Onset: 34-26-3190Ojcicuxh Residual codes; unclassified (1 source)Family history of malignant neoplasm of digestive organs; Translations: [FAM HX MALIG NEOPLASM DIGESTIV ORGN]Onset: 42-28-0774Iszrgreq Spondylosis; intervertebral disc disorders; other back problems (20 sources)Radiculopathy, lumbosacral region; Translations: [Intervertebral disc disorders with radiculopathy,lumbar region]Onset: 35-36-8899Smxccamo Unclassified (1 source)Patient encounter bdpwog48-02-3754 Results Test NameValueInterpretationReference RangeFacilityReminderson 01-06-2025 RemindersReminders From: Chel Parker To: [facility] - Clinical; Sent: 12/30/2024 08:51:01 EDT Show up: 12/30/2024 08:51:00 EDT Subject: Ambulatory Reminder Due Date/Time: 12/31/2024 08:50:00 EDT cholesterol and triglycerides are all normal Results: Date Result Name Value Ref Range 12/29/2024 12:09 Chol 171 mg/dL (120 - 200) 12/29/2024 12:09 Trig 65 mg/dL ( - <=149) 12/29/2024 12:09 HDL 77 mg/dL 12/29/2024 12:09 LDL Direct 72 mg/dL ( - <=129) 12/29/2024 12:09 VLDL 13 mg/dL (7 - 40) Patient informed and voiced understanding.[facility] Ambulatory Visit Summaryon 17-29-5599Daclkjdxzp Visit SummaryAmbulatory Visit Summary SINA PEREZ :1950 Visit Date:12/29/2024 Ambulatory Visit Instructions Your Diagnosis Encounter for subsequent annual wellness visit (AWV) in Medicare patient Hyperlipidemia Hypertension Sjogren's syndrome Fibromyalgia Obesity due to excess calories These Are Your Goals Achieve Healthy BMI, Physicians Recommendation; Current 160 lbs - Not met 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s: Gradually Increase Frequency of Exercise Sessions - Not done Review Educational Material - Done Use Good Portion Control - Progressing Maintain Therapeutic BP and Prevent Complications - Not met 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s: Keep Follow Up Appointments as Scheduled With Providers and Complete Testing/ Labs as Ordered - Progressing Regularly Monitor BP and Report Findings to Provider as Needed - Progressing Review Educational Material - Done Take Medications as Prescribed - Progressing Control Pain and Prevent Complications Related to Fibromyalgia - Not met 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s: Get Regular Aerobic Exercise or Yoga to Help Improve Physical Function/ Overall Well- being - Not done Keep Follow Up Appointments as Scheduled - Progressing Review Educational Material - Done Stress Management Such as: deep breathing, meditation, relaxation exercises - Not done Take Medications as Prescribed - Progressing Your Care Team Attending Physician - Alejandro BRADFORD, Jean Rainey Primary Care Physician - Chel Parker This Is Your Medications List acetaminophen atorvastatin (atorvastatin 10 mg Tab) calcium carbonate (Tums) cholecalciferol (Vitamin D3 2000 intl units oral Tab) fluocinonide topical (fluocinonide Top 0.05% Crm 15 gram) furosemide (furosemide 20 mg Tab) hydroxychloroquine (hydroxychloroquine 200 mg Tab) ibandronate (ibandronate 150 mg oral tablet) ketoconazole topical ketoconazole topical (ketoconazole Top 2% Shampoo) levothyroxine (levothyroxine 50 mcg (0.05 mg) Tab) lisinopril (lisinopril 10 mg Tab) metronidazole topical (metronidazole topical 1% cream) naproxen (Aleve) ocular lubricant (Systane) potassium chloride (Potassium Chloride (Clw-Ihpi-Jau 10) 10 mEq oral tablet, extended release) Procedures Performed Bone marrow biopsy (08/13/2023), Ablation, Biopsy of breast, Biopsy of thyroid, Bone graft, Bone marrow biopsy, Cancer of skin, Cataract, Colonoscopy, Internal fixation of fracture, Mohs surgery, Parathyroidectomy, Repair of tendon, BREANNA BSO - Total abdominal hysterectomy and bilateral salpingo-oophorectomy. Discharge Vitals Heart Rate (Peripheral) 61 Blood Pressure 138/78 Height 150 cm Height 59 in Weight 72.8 kg Weight 160.496 lb BMI 32.36 What to do next Scheduled Follow-Up Appointments Sunday2025 1:20 PM EDT With: Chel Parker Where: [address] [address]25 11:00 AM EDT With: Where: [address] [address]- Medications What How Much When Instructions Unchanged acetaminophen 650 Milligram As needed for as needed for pain Unchanged atorvastatin (atorvastatin 10 mg Tab) 1 Tablets By Mouth Every day Unchanged calcium carbonate (Tums) 500 Milligram Chewed 4 times a day as needed for Indigestion Unchanged cholecalciferol (Vitamin D3 2000 intl units oral Tab) 50 Microgram By Mouth Every day Duration: 90 Days Unchanged fluocinonide topical (fluocinonide Top 0.05% Crm 15 gram) See instructions 1 torrie Topical to scalp sunday through sunday, none on the weekend Unchanged furosemide (furosemide 20 mg Tab) See instructions TAKE ONE TABLET BY MOUTH DAILY Unchanged hydroxychloroquine (hydroxychloroquine 200 mg Tab) See instructions 200mg orally twice a day alternating with 200mg once a day Unchanged ibandronate (ibandronate 150 mg oral tablet) 1 Tablets By Mouth Once a month Unchanged ketoconazole topical See instructions apply 2 % cream to affected area as needed Unchanged ketoconazole topical (ketoconazole Top 2% Shampoo) 1 Application Topical Every other day Unchanged levothyroxine (levothyroxine 50 mcg (0.05 mg) Tab) 1 Tablets By Mouth Every day Duration:90 Days Unchanged lisinopril (lisinopril 10 mg Tab) 1 Tablets By Mouth Every day Duration: 90 Days Unchanged metronidazole topical (metronidazole topical 1% cream) 1 Application Topical 2 times a day use for rosacea Unchanged naproxen (Aleve) 220 Milligram By Mouth Every 8 hours as needed for as needed for pain Only takes if tylenol not effective Unchanged ocular lubricant (Systane) See instructions Eye-Both QID Unchanged potassium chloride (Potassium Chloride (Fyx-Hlxi-Kns 10) 10 mEq oral tablet, extended release) 1 Tablets By Mouth Every day Duration: 90 Days Allergies Demerol (Nausea) Neurontin (Unknown) Percocet (Nausea) morphine (Nausea) sulfa drugs (Unknown) (more content not included)...[facility] Medicine Office/Clinic Noteon [id number] [facility]Long[facility] Chief Complaint Subsequent Medicare Wellness Review of Systems PHQ Score Initial Depression Screen Score: 0 SCORE Physical Exam Vitals & Measurements HR: 61(Peripheral) BP: 138/78 SpO2: 96% HT: 150 cm HT: 59 in WT: 160.496 lb WT: 72.8 kg BMI: 32.36 Procedure I was in the office and available for consultation and to provide direct supervision at the time ofthis visit. I have provided supervision of the care team and have reviewed this chart and office note and agree with the plan of care. Assessment/Plan 1. Encounter for subsequent annual wellness visit (AWV) in Medicare patient (Z00.00: Encounter for general adult medical examination without abnormal findings) The patient was given a customized and personalized print out of all the current AHRQ USPSTF???s recommendations for preventative services and all current CDC recommended immunizations, relevant riskrecommendations and the following patient brochures were given. Reviewed Medicare Prevention Services checklist. CDC-Falls Prevention and home safety screening reviewed. Patient denies any falls in last 12 months, voices no worry about falling. Exhibits no problems with sitting, standing or ambulation. Patient aware with keeping walk way area free of clutter to prevent tripping and/or falling. [place] Advance Directives reviewed. Documents were scanned into the chart today. Patient is an organ donor. Patient denies any problems with ADL???s and Instrumental ADL???s. Cognitive screening completed with memory and clock face drawing. No deficits noted. Immunization record reviewed, discussed Shingrix vaccine with educational handout and availability.2 COVID vaccines have been administered, with (3) Boosters received. Allergies and medications reviewed and up to date. No concerns with taking medication as prescribed. Reviewed OTC medications, medication list up to date. Blood tests were reviewed: Discussed what tests need to be updated. Labs were ordered by pcp and drawn today at office. No concerns with bowel/ bladder. Colonoscopy last completed 08/28/2018, due for repeat 10 years. Last mammogram 08/27/24 at [facility], repeat 1 year, Last DEXA Scan 08/17/2020 at [facility]. Records have beenrequested. Reviewed pain symptoms: rates pain as a 0 out of 10 today. Reviewed all outside providers that patient follows. Last visit summary notes available in chart and/or have been requested. Follow up scheduled with PCP, 06/29/2025 AWV has been scheduled, 12/31/2025 Medicare provides yearly screening for alcohol and depression concerns. This is completed during our Medicare Wellness Visit for those who do not have a current diagnosis of depression or concerns with alcohol use. I spent a total of 12 minutes on this date of service which included preparing to see the patient, face to face patient care, completing clinical documentation, obtaining and/or reviewing separately obtained history, counseling, and educating the patient with handouts. Explanations were provided with reviewing questionnaires. AUDIT risk assessment screening completed, risk score (0) with patient denying concerns with use. Completed PHQ-2 risk assessment for depression with risk sc ore (0), negative findings. Patient has been reminded to notify the provider if there would be a change or concerns with symptoms with fear, unable to sleep, worrying too much, or feeling down and/orsad with lost of interest with daily activities. Will continue to monitor with screening yearly during Medicare Wellness Visits. 2. Hyperlipidemia (E78.5: Hyperlipidemia, unspecified) Reviewed healthy lifestyle with low fat diet and exercise regimen. When you are overweight our bodyproduces more lipids. Risk also increases with family history of hyperlipidemia and with monitoringalcohol use and avoid smoking. Pt voices understanding with importance of monitoring dietary intaketo reduce risk factors associated with CVA. Taking statin medications daily as directed. Will continue to follow up with office visits with updated labs as directed. 3. Hypertension (I10: Essential (primary) hypertension) Patient is taking lisinopril daily as directed. Does not monitor BP pressure at home. HTN stoplightreviewed with BP goal to be <140/90. Reviewed different factors that can alter blood pressure readings. Education handout provided with s/s to monitor for and report to provider. Patient is encouraged to increase portions of fruit, vegetables, fiber and increase exercise as much as tolerable. Reviewed importance with monitoring foods high in salt content and encouraged to limit intake, if unsure encouraged to discuss with their PCP. Encouraged to eat more chicken, fish and lean white meats and limits red meats in diet. Discussed importance with keeping BP under good control to reduce CVA risk factors. Will continue to f/u with PCP during office visits and as needed. 4. Sjogren's syndrome (M35.00: Sjogren syndrome, unspecified) Patient follows (more content not included)...[facility] Comment on above:Result Comment: Electronically Signed By: Chel Parker\.br\Date and Time Signed: 12/29/24 14:33 EDT\.br\Electronically Co-Signed By: Samra Canas\.br\Date and Time Co-Signed: 12/29/24 13:25 EDTFamily Medicine Office/Clinic NoteFamily Medicine Office/Clinic Note HPI Staff Pt is presenting for 6 month follow up Patient is here for follow up on hypertension. How often are you checking your blood pressure? yes, occasionally. has bp log with her today What are your average readings? 140s/ 80s-90s Yearly BMP: _ Wants to discuss medication for osteoporosis medication. Was on Boniva previously (Dr. Kennedy) but was taken off it about a year and half ago. Has doctor appts coming up where they will do lab work Refills on all History of Present Illness pt presents today for 6 month follow up Review of Systems PHQ Score Initial Depression Screen Score: 0 SCORE General: alert, no acute distress ENMT: oral mucosa moist, no pharyngeal erythema or exudate Cardiovascular: regular rate and rhythm, normal peripheral perfusion Respiratory: Lungs CTA, respirations non labored Extremities: no deformity, no trauma Neurological: oriented x 4, LOC appropriate for age, CN II-XII intact, motor strength equal & normal bilaterally, speech normal Physical Exam Vitals & Measurements T: 36.4 ???C(Temporal Artery) HR: 61(Peripheral) RR: 18 BP: 140/78 SpO2: 96% HT: 150 cm HT: 59 in WT: 72.8 kg WT: 160.496 lb BMI: 32.36 Assessment/Plan 1. Hyperlipidemia (E78.5: Hyperlipidemia, unspecified) pt presents today for 6 month follow up. Is fasting today. we will draw Lipid panel today. pt has several pages of lab orders that she will be having done in the next couple of weeks. RTC 6 months. all med refilled. Ordered: ADM OF SOC DTR G0136 Complex E&M Add on G2211 E&M of Est. Patient Low 20-29 Min 81166 Lab Specimen Collect 66857 Lipid Panel 2. Osteoporosis (M81.0: Age-related osteoporosis without current pathological fracture) pt was taken off of boniva over a year ago to give her body a holiday. she would like to restart onthat. refills sent Ordered: Complex E&M Add on G2211 E&M of Est. Patient Low 20-29 Min 44458 3. BMI 32.0-32.9,adult (Z68.32: Body mass index [BMI] 32.0-32.9, adult) BMI education given Ordered: Complex E&M Add on G2211 E&M of Est. Patient Low 20-29 Min 20237 Lipid Panel 4. Obesity (BMI 30-39.9) (E66.9: Obesity, unspecified) see above Ordered: Complex E&M Add on G2211 E&M of Est. Patient Low 20-29 Min 86570 Lipid Panel 5. Nonsmoker (Z78.9: Other specified health status) continue not smoking Ordered: Complex E&M Add on G2211 E&M of Est. Patient Low 20-29 Min 50364 Lipid Panel Orders: atorvastatin, 10 mg = 1 tab(s), Oral, Daily, # 90 tab(s), Refills(s) 4, Pharmacy: [facility], 146, cm, 08/09/23 10:30:00 EDT, Height/Length Dosing, 70.6, kg, 08/09/23 10:30:00 EDT, Weight Dosing atorvastatin, 10 mg = 1 tab(s), Oral, Daily, # 90 tab(s), Refills(s) 4, Pharmacy: [facility], 150, cm, 12/29/24 11:11:00 EDT, Height/Length Dosing, 72.8, kg, 12/29/24 11:11:00 EDT, Weight Dosing cholecalciferol, 50 mcg, Oral, Daily, # 100 cap(s), Refills(s) 0, Pharmacy: [facility], 149.9, cm, 07/24/22 13:31:00 EDT, Height/Length Dosing, 69.1, kg, 07/24/22 13:31:00 EDT, Weight Dosing cholecalciferol, 50 mcg, Oral, Daily, X 90 day(s), # 100 cap(s), Refills(s) 3, Pharmacy: [facility], 150, cm, 12/29/24 11:11:00 EDT, Height/Length Dosing, 72.8, kg, 12/29/24 11:11:00 EDT, Weight Dosing furosemide, See Instructions, TAKE ONE TABLET BY MOUTH DAILY, # 90 tab(s), Refills(s) 3, Pharmacy: [facility], 150, cm, 12/29/24 11:11:00 EDT, Height/Length Dosing, 72.8, kg, 12/29/24 11:11:00 EDT, Weight Dosing furosemide, See Instructions, TAKE ONE TABLET BY MOUTH DAILY, # 90 EA, Refills(s) 4, Pharmacy: [facility], 146, cm, 08/09/23 10:30:00 EDT, Height/Length Dosing, 70.6, kg, 08/09/23 10:30:00 EDT, Weight Dosing ibandronate, 150 mg = 1 tab(s), Oral, qMonth, # 3 tab(s), Refills(s) 3, Pharmacy: [facility], 150, cm, 12/29/24 11:11:00 EDT, Height/Length Dosing, 72.8, kg, 12/29/24 11:11:00 EDT, Weight Dosing levothyroxine, 50 mcg = 1 tab(s), Oral, Daily, # 90 tab(s), Refills(s) 1, Pharmacy: [id number], 150, cm, 07/21/24 7:03:00 EDT, Height/Length Dosing, 72.9, kg, 07/21/24 7:03:00 EDT, Weight Dosing levothyroxine, 50 mcg = 1 tab(s), Oral, Daily, X 90 day(s), # 90 tab(s), Refills(s) 3, Pharmacy: [facility], 150, cm, 12/29/24 11:11:00 EDT, Height/Length Dosing, 72.8, kg, 12/29/24 11:11:00 EDT, Weight Dosing lisinopril, 10 mg = 1 tab(s), Oral, Daily, X 90 day(s), # 90 tab(s), Refills(s) 3, Pharmacy: [facility], 150, cm, 12/29/24 11:11:00 EDT, Height/Length Dosing, 72.8, kg, 12/29/24 11:11:00 EDT, Weight Dosing lisinopril, 10 mg = 1 tab(s), Oral, Daily, # 90 tab(s), Refills(s) 1, Pharmacy: [facility], 150, cm, 07/21/24 7:03:00 EDT, Height/Length Dosing, 72.9, kg, 07/21/24 7:03:00 EDT, Weight Dosing potassium chloride, 10 mEq = 1 tab(s), Oral, Daily, X 90 day(s), # 90 tab(s), Refills(s) 3, Pharmacy: [facility], 150, cm, 12/29/24 11:11:00 EDT, Height/ (more content not included)...NormalCleveland ClinicComment on above:Result Comment: Electronically Signed By: Chel Parker\.br\Date and Time Signed: 12/29/24 13:31 EDTLipid Panelon 98-85-2912Patyidmlwpt [Mass/Vol]171 mg/eBKkuzsj262-120FnuiieCleveland ClinicComment on above: Performed By: #### [id number] #### [facility] [address], [place] [address]Zyttmvaubul in HDL [Mass/Vol]77 mg/dLInvalid Interpretation CodeCleveland ClinicComment on above:Result Comment: '>= 60 LOW RISK' '<= 40 HIGH RISK'Performed By: #### [id number] #### [facility] [address], [place] [address]Ycnysvhotuv in LDL [Mass/Vol]72 mg/dLNormal<=129C[facility] ClinicComment on above:Performed By: #### [id number] #### [facility] [address], [place] [address]Srrrizkscyy in VLDL [Mass/Vol]13 mg/dLNormal7-40C[place] ClinicComment on above:Performed By: #### [id number] #### [facility] [address], [place] [address]Rclytgrrdueb [Mass/Vol]65 mg/dLNormal<=149C[place] ClinicComment on above:Performed By: #### [id number] #### [facility] [address], [place] [address]JbfhjxbfyqPsychiatric Hospital, [facility] [id number] [facility]'s [facility] Case Information Case Priority: None Programs: -- Referral Source: 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 Analyst Referral Reason: Disease management Case Type: Chronic [...] cream, 1 torrie, Topical, BID Potassium Chloride (Icc-Ltte-Yez 10) 10 mEq oral tablet, extended release, [...] Assessments 07/22/24 14:16:00 Result Name Value Comment [facility] Program Enrollment Verbally agreed to receive [facility] services CCM Written Consent Written consent in progress CCM Verbal Consent By Self 07/22/24 13:00:00 Result Name Value Comment Preferred Spoken Language Turkish Preferred Written Language Turkish Preferred Communication Mode Verbal Ability to Read/Write [...] Spouse/Significant other, Family member(s), Cultural/Spiritual community Primary Policy And Planning Manager of Home Medication Self Home Medication Behavior [...] motor development General Sympto (more content not included)...NormalFisher [facility] [id number] [facility] Myofascial Pain Syndrome and Fibromyalgia Myofascial pain syndrome and fibromyalgia are both pain disorders. You may feel this pain mainly inyour muscles. ??? Myofascial pain syndrome: ? Always [...] medical history. You will also have a physicalexam. In general: ??? Fibromyalgia is diagnosed if you have pain, fatigue, and other symptoms for more than 3 months,and symptoms cannot be explained by another condition. [...] these instructions at home: Medicines ??? Take dptt-plm-tdlmspc and prescription medicines only as told by your health care provider. ??? Ask your health care provider if the medicine prescribed to you: ? Requires you to avoid driving or using machinery. ? Can cause constipation. You may need to take these actions to prevent or treat constipation: ? Drink enough fluid to keep your urine pale yellow. ? Take snzo-ehd-qwbeoof or prescription medicines. ? Eat foods that [...] not use any pr (more content not included)...[facility] [id number] Children's Hospital Foundation Case Information Case Priority: None Programs: -- Referral Source: 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 Analyst Referral Reason: Disease management Case Type: Chronic [...] cream, 1 torrie, Topical, BID Potassium Chloride (Mtv-Eqbe-Tft 10) 10 mEq oral tablet, extended release, [...] Assessments 07/22/24 14:16:00 Result Name Value Comment [facility] Program Enrollment Verbally agreed to receive [facility] services CCM Written Consent Written consent in progress CCM Verbal Consent By Self 07/22/24 13:00:00 Result Name Value Comment CM Preferred Spoken Language Turkish CM Preferred Written Language Turkish Preferred Communication Mode Verbal Ability to Read/Write [...] Spouse/Significant other, Family member(s), Cultural/Spiritual community Primary Policy And Planning Manager of Home Medication Self Home Medication Behavior [...] motor development General Sympto (more content not included)...[facility] Population [facility] [phone] [facility] Case Information Case Priority: None Programs: -- Referral Source: 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 Analyst Referral Reason: Disease management Case Type: Chronic [...] cream, 1 torrie, Topical, BID Potassium Chloride (Nks-Fgvk-Awl 10) 10 mEq oral tablet, extended release, [...] Assessments 07/22/24 14:16:00 Result Name Value Comment [facility] Program Enrollment Verbally agreed to receive [facility] services [facility] Written Consent Written consent in progress [facility] Verbal Consent By Self 07/22/24 13:00:00 Result Name Value Comment CM Preferred Spoken Language Turkish CM Preferred Written Language Turkish Preferred Communication Mode Verbal Ability to Read/Write [...] Spouse/Significant other, Family member(s), Cultural/Spiritual community Primary Policy And Planning Manager of Home Medication Self Home Medication Behavior [...] motor development General Sympto (more content not included)...[facility] [phone] Hospital Case Information Case Priority: None Programs: -- Referral Source: 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 Analyst Referral Reason: Disease management Case Type: Chronic [...] cream, 1 torrie, Topical, BID Potassium Chloride (Crz-Ferv-Lpu 10) 10 mEq oral tablet, extended release, [...] Assessments 07/22/24 14:16:00 Result Name Value Comment [facility] Program Enrollment Verbally agreed to receive [facility] services CCM Written Consent Written consent in progress [facility] Verbal Consent By Self 07/22/24 13:00:00 Result Name Value Comment Preferred Spoken Language Turkish Preferred Written Language Turkish Preferred Communication Mode Verbal Ability to Read/Write [...] Spouse/Significant other, Family member(s), Cultural/Spiritual community Primary Policy And Planning Manager of Home Medication Self Home Medication Behavior [...] development General Symptoms None (more content not included)...[facility] Case Information Case Priority: None Programs: -- Referral Source: 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 Analyst Referral Reason: Disease management Case Type: Chronic [...] cream, 1 torrie, Topical, BID Potassium Chloride (Neu-Azea-Ttb 10) 10 mEq oral tablet, extended release, [...] Assessments 07/22/24 14:16:00 Result Name Value Comment [facility] Program Enrollment Verbally agreed to receive [facility] services [facility] Written Consent Written consent in progress [facility] Verbal Consent By Self 07/22/24 13:00:00 Result Name Value Comment Preferred Spoken Language Turkish Preferred Written Language Turkish Preferred Communication Mode Verbal Ability to Read/Write [...] Spouse/Significant other, Family member(s), Cultural/Spiritual community Primary Policy And Planning Manager of Home Medication Self Home Medication Behavior [...] development General Symptoms None (more content not included)...[facility]Comment on above:Other Comment: date errorPopulation HealthPopulation Health Problems Ongoing Anemia BMI 32.0-32.9,adult BMI [...] cream, 1 torrie, Topical, BID Potassium Chloride (Rak-Afjj-Fxp 10) 10 mEq oral tablet, extended release, [...] - Comments: - - 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 Frequency Status Inorganic Chemistry Professor Review Educational Material - - Not done - - Gradually Increase Frequency of Exercise Sessions - - Not done - - Use Good Portion Control - - Not done - - Goal: Maintain Therapeutic BP and Prevent Complications Start Date: 2024 Target: - - Status: Not met Barriers: - - Comments: - - 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 Frequency Status Inorganic Chemistry Professor Review Educational Material - - Not done [...] - Comments: - - 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 Frequency Status Inorganic Chemistry Professor Review Educational Material - - Not done [...] Well- being - - Not done - -[facility]Ambulatory Visit Summaryon 07-21-2024 Ambulatory Visit SummaryAmbulatory Visit Summary SINA PEREZ :1950 Visit Date:07/21/2024 Ambulatory Visit Instructions Your Diagnosis Post-nasal drip BMI 32.0-32.9,adult Obesity (BMI 30-39.9) Nonsmoker Hypertension Your Care Team Attending Physician - Jean Hair MD Primary Care Physician - Jean Hair MD This Is Your Medications List acetaminophen atorvastatin (atorvastatin 10 mg Tab) carboxymethylcellulose-sodium hyaluronate cholecalciferol (Vitamin D3 2000 intl units oral Tab) fluocinonide topical (fluocinonide Top 0.05% Crm 15 gram) furosemide (furosemide 20 mg Tab) hydroxychloroquine (hydroxychloroquine 200 mg Tab) ketoconazole topical (ketoconazole Top 2% Shampoo) levothyroxine (levothyroxine 50 mcg (0.05 mg) Tab) lisinopril (lisinopril 10 mg Tab) metronidazole topical (metronidazole topical 1% cream) naproxen potassium chloride (Potassium Chloride (Oku-Roav-Mxw 10) 10 mEq oral tablet, extended release) [...] EDT With: Alejandro BRADFORD, Jean Rainey Where: [address] [id number]- 2024 3:30 PM EDT With: Where: [address] [id number]- Medications What How Much When Instructions Unchanged acetaminophen 650 Milligram As needed for as needed for pain Unchanged atorvastatin (atorvastatin 10 mg Tab) 1 Tablets By Mouth Every day Unchanged carboxymethylcellulose-sodium hyaluronate See instructions 0.5% 1 drop both [...] for pain Unchanged potassium chloride (Potassium Chloride (Qxl-Nwyr-Lui 10) 10 mEq oral tablet, extended release) [...] you for choosing us for your care. [facility] Medicine Office/Clinic Noteon [phone] Medicine Office/Clinic NoteFaclover hill hospital Medicine Office/Clinic Note Chief Complaint ER Follow up Patient presents with post-nasal drip and irritation in the throat. HPI Staff Sina is a 74 year old female presenting for ER follow up ER followup: Hospital: [facility] Visit date: 07/15/24 Symptoms the patient presented [...] level of consciousness appropriate for age, CN II- XII intact, motor strength equal & normal bilaterally, [...] We talked about managing her symptoms with oisr-slw-ltabpwg options such as nasal saline. The potential for allergies was discussed, given her family history, even though she has not been formally tested. Regarding her obesity, we emphasized maintaining a healthy diet and exercise habits. As her essential hypertension treatment was not specified in this visit, the continuation of her current management plan was implied based on her historyand prior diagnoses. The patient was encouraged to [...] mg Tab, See In (more content not included)...[facility]hillComment on above:Result Comment: Electronically Signed By: Alejandro BRADFORD, Jean Noriega.br\Date and Time Signed: 07/21/24 07:45 EDTAmbulatory Visit Summaryon [id number] Visit SummaryAmbulatory Visit Summary SINA PEREZ :1950 Visit Date:06/30/2024 [...] List acetaminophen atorvastatin (atorvastatin 10 mg Tab) carboxymethylcellulose-sodium hyaluronate cholecalciferol (Vitamin D3 2000 intl units oral Tab) fluocinonide topical (fluocinonide Top 0.05% Crm 15 gram) furosemide (furosemide 20 mg Tab) hydroxychloroquine (hydroxychloroquine 200 mg Tab) ketoconazole ketoconazole topical (ketoconazole Top 2% Shampoo) levothyroxine (levothyroxine 50 mcg (0.05 mg) Tab) lisinopril (lisinopril 10 mg Tab) metronidazole topical (metronidazole topical 1% cream) naproxen potassium chloride (Potassium Chloride (Cfb-Zxoj-Mqc 10) 10 mEq oral tablet, extended release) [...] Follow-Up Appointments 2024 9:30 AM EDT Where: [place] [id number]- Medications What How Much When Instructions Unchanged acetaminophen 650 Milligram As needed for as needed for pain Unchanged atorvastatin (atorvastatin 10 mg Tab) 1 Tablets By Mouth Every day Unchanged carboxymethylcellulose-sodium hyaluronate See instructions 0.5% 1 drop both [...] for pain Unchanged potassium chloride (Potassium Chloride (Fiz-Esof-Umg 10) 10 mEq oral tablet, extended release) [...] you for choosing us for your care. [facility] Medicine Office/Clinic Noteon [phone] Medicine Office/Clinic NoteFaclover hill hospital Medicine Office/Clinic Note Chief Complaint Follow up The patient presents for a follow-up on multiple chronic health conditions and medications. [facility] Staff Pt presents today for follow [...] (12/31/23 09:20:00) [facility] to Sjogren's syndrome. Pt states she never heard anything. Has been following oncology @ [facility]. PET scan for MGUS. Not approved by [...] assist with hypertension and overall health, including dietand exercise. Review of Systems PHQ Score Initial [...] level of consciousness appropriate for age, CN II- XII intact, motor strength equal & normal bilaterally, [...] with current medications in outpatient record [id number] [facility] [place] External Ambulatory Referral Influenza immunization status assessed [...] excess calories) Continue diet and exercise. Ordered: [facility] [place] External Ambulatory Referral MA Mamm Screen w/CAD if perf and 3D Oh 3. BMI 33.0-33.9,adult (Z68.33: Body mass index [BMI] 33.0-33.9, adult) BMI education added Ordered: [facility] [place] External Ambulatory Referral MA Mamm Screen w/CAD if perf and 3D Oh 4. Nonsmoker (Z78.9: Other specified health status) Please continue not to smoke and albuterol Ordered: [facility] [place] External Ambulatory Referral MA Mamm Screen w/CAD if perf and 3D Oh 5. Primary hypertension (I10: Essential (primary) hypertension) - Medications to remain; promote self-checking of blood pressure. Ordered: [facility] [place] External Ambulatory Referral MA Mamm Screen w/CAD [...] reflux disease without esoph (more content not included)...[facility]hillComment on above:Result Comment: Electronically Signed By: Alejandro BRADFORD, Jean Noriega.br\Date and Time Signed: 06/30/24 09:03 EDTPROTEIN ELECTRO, RANDOM URINEon 10-79-7503HPPLDSX, URINE25.3 %.[facility] XnotymyroxNNHTF-1-FPAVNMKV, URINE3.4 %.[facility] SbxmzghwacGRHZQ-2-FKSTBIJK, URINE7.9 %.[facility] HealthcareBETA GLOBULIN, URINE48 %.[facility] HealthcareGAMMA GLOBULIN, URINE 15.3 %.[facility] HealthcareM-SPIKE %Not ObservedNot ObservedNOIA HealthcarePLEASE NOTE:Comment.[facility] HealthcareComment on above:Protein electrophoresis scan will follow via computer, mail, or apple peeler operator delivery. Performed at: [facility] [id number] Water Treatment Specialist: Kristian Castro PhD, Phone: [phone] Protein (U) [Mass/Vol]4.2 mg/dLNot Estab.[facility]NOS[facility]24 hour urine albumin/total protein ratio by electrophoresisOrdered By: Tatiana Douglas on 32-31-0770Bojxavg Elph (24H U) [Mass fraction]25.3 %.[facility]24 hour urine gamma globulin/total protein ratio by electrophoresisOrdered By: Tatiana Douglas on 86-92-0082Hhbym globulin Elph (24H U) [Mass fraction]15.3 %. [facility]24 hour urine protein monoclonal/total protein by electrophoresisOrdered By: Tatiana Douglas on 80-93-5426Veylgzu.monoclonal Elph (24H U) [Mass fraction]Not observed %Not ObservedOhiohealthAlanine aminotransferase [Enzymatic activity/volume] in Serum or Plasma Ordered By: Tatiana Douglas on 69-79-3411BGV [Catalytic activity/Vol]15 U/LNormal7-52 OhiohealthComment on above:Performed By: #### CBC, CMP #### [facility] [address] [place] [address] [place] #### UPE RAND, MG SERUM, B2-MICRO, SPE, KAPPA #### [facility] ,Albumin [Mass/volume] in Serum or Plasma by Bromocresol green (BCG) dye binding methoOrdered By: Tatiana Douglas on 43-35-6947Wrnkhsl BCG dye [Mass/Vol]4.3 g/dL 3.5-5.7FSelect Medical TriHealth Rehabilitation HospitalAlkaline phosphatase [Enzymatic activity/volume] in Serum or PlasmaOrdered By: Tatiana Douglas on 54-43-0316NPG [Catalytic activity/Vol]86 U/FJnhtav73-663YcvoqljfmOhiohealth Comment on above:Performed By: #### CBC, CMP #### [facility] [address] [place] [address] [place] #### UPE RAND, MG SERUM, B2-MICRO, SPE, KAPPA #### [facility] ,Aspartate aminotransferase [Enzymatic activity/volume] in Serum or Plasma Ordered By: Tatiana Douglas on 63-73-0822TWB [Catalytic activity/Vol]25 U/VHrvrct31-31 OhiohealthComment on above:Performed By: #### CBC, CMP #### [facility] [address] [place] [address] [place] #### UPE RAND, MG SERUM, B2-MICRO, SPE, KAPPA #### [facility] ,Basophils [#/volume] in Blood by Automated countOrdered By: Tatiana Douglas on 71-57-3146Haipdcecm (Bld) [#/Vol]0.1 10*3/uLNormal0.0-0.2FSelect Medical TriHealth Rehabilitation HospitalComment on above:Result Comment: PERFORMED BY: [place] [address] PATHOLOGIST PIGMENT PROCESSOR NOHEMY STEPHENS M.D.Performed By: #### CBC, CMP #### [address] #### UPE RAND, MG SERUM, B2-MICRO, SPE, KAPPA #### [facility] ,Basophils/100 leukocytes in Blood by Automated countOrdered By: Tatiana Douglas on 23-70-0703Iurfrjfal/100 WBC (Bld)1.0 %Normal.[facility] Comment on above:Performed By: #### CBC, CMP #### [address] #### UPE RAND, MG SERUM, B2-MICRO, SPE, KAPPA #### [facility] ,Beta 2 Microglobulin, Serumon 90-70-4463Udgf 2 Microglobulin, Serum2.3 mg/L Normal0.6-2.4The [facility] Health Johnston Physician GroupComment on above:Result Comment: Siemens Immulite 2000 Immunochemiluminometric assay (ICMA) Values obtained with different assay methods or kits cannot be used interchangeably. Results cannot be interpreted as absolute evidence of the presence or absence of malignant disease. Performed at: [address] [id number] Water Treatment Specialist: Camila Mckeon MD, Phone: [phone] By: #### CBC, CMP #### [facility] [address] [place] [address] [place] #### UPE RAND, MG SERUM, B2-MICRO, SPE, KAPPA #### [facility] ,Bilirubin.total [Mass/volume] in Serum or PlasmaOrdered By: Tatiana Douglas on 63-50-4385Fhrfjwfyu [Mass/Vol]0.8 mg/dLNormal0.3-1.0Firelands Regional Medical CenterComment on above:Performed By: #### CBC, CMP #### [facility] [address] #### UPE RAND, MG SERUM, B2-MICRO, SPE, KAPPA #### [facility] ,CBC W Auto Differential panel (Bld)on 77-09-1245Umwrhqqtb (Bld) [#/Vol]0.1 10*3/uL0.0 - 0.2 10*3/uLNOMS HealthcareBasophils/100 WBC Manual cnt (Syn fld)1 % .[facility] HealthcareEosinophils (Bld) [#/Vol]0.1 10*3/uL0.0 - 0.45 10*3/uLNOMS HealthcareEosinophils/100 WBC Manual cnt (Syn fld)2.6 %.[facility] Erythrocyte distribution width (RBC) [Ratio]13.1 %11.9 - 15.3 %[facility] Hematocrit (Bld) [Volume fraction]39.8 %34.0 - 46.4 %[facility] HospitalHemoglobin (Bld) [Mass/Vol]13.3 g/dL11.8 - 15.4 g/dLTHE [facility]IC [facility]TY [facility] HealthcareInterpretation and review of laboratory resultsAbnormalTHE [facility] HealthcareLymphocytes (Bld) [#/Vol]0.9 10*3/uLLow1.00 - 4.8 10*3/uLNOMS HealthcareLymphocytes/100 WBC Manual cnt (Syn fld)16.8 %.[facility] SystemH (RBC) [Entitic mass]30.8 pg24.7 - 34.3 pgSaint Luke's Health SystemHC (RBC) [Mass/Vol]33.3 g/dL32.0 - 35.0 g/dLSaint Luke's Health SystemV (RBC) [Entitic vol]92.5 fL80 - 100 fLTHE ORTHOPEDIC SPECIALTY HOSPITAL HealthcareMonocytes (Bld) [#/Vol]0.5 10*3/uL0.0 - 0.8 10*3/uLNOMS HealthcareMonocytes+Macrophages/100 WBC Manual cnt (Syn fld)9.7 %.[facility] HealthcareNeutrophils (Bld) [#/Vol]3.9 10*3/uL1.8 - 7.7 10*3/uLNOMS HealthcareNeutrophils/100 WBC Manual cnt (Syn fld)69.9 %.NOMS HealthcareNRBC0.1 /100{WBC}0 - 0.5 /100{WBC}NOMS HealthcarePlatelet mean volume (Bld) [Entitic vol]9.9 fL6.3 - 10.7 fLNOMS HealthcarePlatelets (Bld) [#/Vol]206 10*3/uL150 - 450 10*3/uLNOMS HealthcareRBC LM.HPF (Urine sed) [#/Area]4.31 10*6/uL3.60 - 5.00 10*6/uLNOMS HealthcareWBC (Bld) [#/Vol]5.6 10*3/uL3.8 - 11.6 10*3/uLNOMS HealthcareWBC LM.HPF (Urine sed) [#/Area]5.6 10*3/uL3.8 - 11.6 10*3/uLNOMS HealthcareNOMS HealthcareCalcium [Mass/volume] in Serum or Plasma Ordered By: Tatiana Douglas on 08-49-8342Elkfzbw [Mass/Vol]9.5 mg/dLNormal8.6-10.3 OhiohealthComment on above:Performed By: #### CBC, CMP #### [facility] [address] [place] [address] [place] #### UPE RAND, MG SERUM, B2-MICRO, SPE, KAPPA #### [facility] ,Carbon dioxide, total [Moles/volume] in Serum or PlasmaOrdered By: Tatiana Douglas on 38-04-6369RE8 [Moles/Vol]27.1 mmol/KZtmwkl64.0-31.0OhiohealthComment on above:Performed By: #### CBC, CMP #### [facility] [address] [place] [address] [place] #### UPE RAND, MG SERUM, B2-MICRO, SPE, KAPPA #### [facility] ,Chloride [Moles/volume] in Serum or PlasmaOrdered By: Tatiana Douglas on 12-04-2024 Chloride [Moles/Vol]105 mmol/KPnirbs86-945LbadzwxvdOhiohealth Comment on above:Performed By: #### CBC, CMP #### [address] #### UPE RAND, MG SERUM, B2-MICRO, SPE, KAPPA #### [facility] ,Complete Blood Count Auto Diffon 71-49-7682Pklk Corpuscular HGB Conc33.3 g/dL Sybxxn83.0-35.0The [facility] Johnston Physician GroupComment on above:Performed By: #### CBC, CMP #### [address] #### UPE RAND, MG SERUM, B2-MICRO, SPE, KAPPA #### [facility] ,NRBC%0.1 /100{WBC}Normal0-0.5The [facility] Johnston Physician GroupComment on above: Performed By: #### CBC, CMP #### [place] [address] [place] #### UPE RAND, MG SERUM, B2-MICRO, SPE, KAPPA #### [facility] ,Comprehensive Metabolic Panelon 87-95-4770Fmfpqev [Mass/Vol]4.3 g/dLNormal 3.5-5.7The [facility] Johnston Physician GroupComment on above:Performed By: #### CBC, CMP #### [place] [address] [place] #### UPE RAND, MG SERUM, B2-MICRO, SPE, KAPPA #### [facility] ,Creatinine Clr Calc Semlyygt74.31NormalThe Unc Health Johnston Physician GroupComment on above:Result Comment: PERFORMED BY: [place] [address] PATHOLOGIST PIGMENT PROCESSOR NOHEMY STEPHENS M.D.Performed By: #### CBC, CMP #### [place] [address] [place] #### UPE RAND, MG SERUM, B2-MICRO, SPE, KAPPA #### [facility] ,GFR/1.73 sq M.predicted MDRD (S/P/Bld) [Vol rate/Area]mL/min/{1.73_m2}NormalThe Unc Health Johnston Physician GroupComment on above:Performed By: #### CBC, CMP #### [facility] [address] #### UPE RAND, MG SERUM, B2-MICRO, SPE, KAPPA #### [facility] ,Comprehensive metabolic panelon 04-70-7065Lesjdvq [Mass/Vol]4.3 g/dL3.5 - 5.7 g/dLNOMS HealthcareAlbumin/Globulin [Mass ratio]1.5 {ratio}NOMS HealthcareALP [Catalytic activity/Vol]86 U/L34 - 104 U/LNOMS HealthcareALT [Catalytic activity/Vol]15 U/L7 - 52 U/LNOMS HealthcareAnion gap [Moles/Vol]13.1 mmol/L6.0 - 15.0 meq/LNOMS HealthcareAST [Catalytic activity/Vol]25 U/L13 - 39 U/LNOMS HealthcareBilirubin [Mass/Vol]0.8 mg/dL0.3 - 1.0 mg/dLNOMS HealthcareCalcium [Mass/Vol]9.5 mg/dL8.6 - 10.3 mg/dLNOMS HealthcareChloride [Moles/Vol]105 mmol/L 98 - 107 mmol/LNOMS HealthcareCO2 [Moles/Vol]27.1 mmol/L21.0 - 31.0 mmol/LNOMS HealthcareCreatinine (U) [Mass/Vol]0.84 mg/dL0.60 - 1.20 mg/dLNOMS Healthcare CREATININE CLR CALC WQDCDOEJ78.31NOMS HealthcareESTIMATED GFRmL/MinNOMS HealthcareGlobulin (S) [Mass/Vol]2.9 g/dLNOMS HealthcareGlucose [Mass/Vol]85 mg/dL70 - 100 mg/dLNOMS HealthcareComment on above:Random Glucose Reference Range is dependent on time and content of last meal. Glucose of more than 200 mg/dL in a nonstressed, ambulatory subject supports the diagnosis of Diabetes Mellitus. ADA recommended reference range Interpretation and review of laboratory resultsAbnormalNOMS HealthcarePotassium [Moles/Vol]4.2 mmol/L3.5 - 5.1 mmol/LNOMS HealthcareProtein [Mass/Vol]7.2 g/dL 6.4 - 8.9 g/dLNOMS HealthcareSodium [Moles/Vol]141 mmol/L136 - 145 mmol/LNOMS HealthcareUrea nitrogen [Mass/Vol]28 mg/dLHigh7 - 25 mg/dLNOMS HealthcareNOMS HealthcareCreatinine [Mass/volume] in Serum or PlasmaOrdered By: Tatiana Douglas on 66-76-9661Uogfovjrea [Mass/Vol]0.84 mg/dLNormal0.60-1.20OhiohealthComment on above:Performed By: #### CBC, CMP #### [address] #### UPE RAND, MG SERUM, B2-MICRO, SPE, KAPPA #### [facility] ,Eosinophils [#/volume] in Blood by Automated countOrdered By: Tatiana Douglas on 37-12-4447Lvxhgbplhzc (Bld) [#/Vol]0.1 10*3/uLNormal0.0-0.45OhiohealthComment on above:Performed By: #### CBC, CMP #### [place] [address] [place] #### UPE RAND, MG SERUM, B2-MICRO, SPE, KAPPA #### [facility] ,Eosinophils/100 leukocytes in Blood by Automated countOrdered By: Tatiana Douglas on 38-00-8072Ltklvjgxxyd/100 WBC (Bld)2.6 %Normal.[facility] Comment on above:Performed By: #### CBC, CMP #### [place] [address] [place] #### UPE RAND, MG SERUM, B2-MICRO, SPE, KAPPA #### [facility] ,Erythrocyte distribution width [Ratio] by Automated countOrdered By: Tatiana Douglas on 29-52-2370Cupaqrkbffe distribution width (RBC) [Ratio]13.1 %Wnpifx72.9-15.3 OhiohealthComment on above:Performed By: #### CBC, CMP #### [place] [address] [place] #### UPE RAND, MG SERUM, B2-MICRO, SPE, KAPPA #### [facility] ,Erythrocytes [#/volume] in Blood by Automated countOrdered By: Tatiana Douglas on 58-40-2081XFY (Bld) [#/Vol]4.31 10*6/uLNormal3.60-5.00OhiohealthComment on above:Performed By: #### CBC, CMP #### [address] #### UPE RAND, MG SERUM, B2-MICRO, SPE, KAPPA #### [facility] ,Free K+L LT Chains, Qn, Son 85-30-2369Qgfc [place] Light Chains, S26.2 mg/LHigh 3.3-19.4The [facility] Johnston Physician GroupComment on above:Performed By: #### CBC, CMP #### [facility] [address] [place] [address] [place] #### UPE RAND, MG SERUM, B2-MICRO, SPE, KAPPA #### [facility] ,Free Lambda Light Chains, S80.3 mg/LHigh5.7-26.3The [facility] Comment on above:Performed By: #### CBC, CMP #### [facility] [address] [place] [address] [place] #### UPE RAND, MG SERUM, B2-MICRO, SPE, KAPPA #### [facility] ,[place]/Lambda Ratio, S0.50Aonpxd6.26-1.65The [facility] Johnston Physician GroupComment on above:Result Comment: Performed at: [facility] [address] [id number] Water Treatment Specialist: rKistian Castro PhD, Phone: [phone] PERFORMED BY: [place] [address] PATHOLOGIST PIGMENT PROCESSOR NOHEMY STEPHENS M.D.Performed By: #### CBC, CMP #### [address] #### UPE RAND, MG SERUM, B2-MICRO, SPE, KAPPA #### [facility] ,Glucose [Mass/volume] in Serum or PlasmaOrdered By: Tatiana Douglas on 02-06-2024 Glucose [Mass/Vol]85 mg/xMPyhamq43-859XqqkhhdmfOhiohealthComment on above:ADA recommended reference rangeRandom Glucose Reference Range is dependent on time and content of last meal. Glucose of more than 200 mg/dL in a nonstressed, ambulatory subject supports the diagnosisof Diabetes Mellitus. Result Comment: Random Glucose Reference Range is dependent on time and content of last meal. Glucose of more than 200 mg/dL in a nonstressed, ambulatory subject supports the diagnosis of Diabetes Mellitus. ADA recommended reference rangePerformed By: #### CBC, CMP #### [place] [address] [place] #### UPE RAND, MG SERUM, B2-MICRO, SPE, KAPPA #### [facility] ,Hematocrit [Volume Fraction] of Blood by Automated countOrdered By: Tatiana Douglas on 22-02-1570Jzauzfrfbn (Bld) [Volume fraction]39.8 %Aauduq82.0-46.4FSelect Medical TriHealth Rehabilitation HospitalComment on above:Performed By: #### CBC, CMP #### [place] [address] [place] #### UPE RAND, MG SERUM, B2-MICRO, SPE, KAPPA #### [facility] ,Hemoglobin [Mass/volume] in BloodOrdered By: Tatiana Douglas on 99-72-2030Xmiovxwdjk (Bld) [Mass/Vol]13.3 g/vYTwemuf43.8-15.4FSelect Medical TriHealth Rehabilitation HospitalComment on above:Performed By: #### CBC, CMP #### [place] [address] [place] #### UPE RAND, MG SERUM, B2-MICRO, SPE, KAPPA #### [facility] ,Immunofixation,Serumon 82-06-0309Xbpxlnsfkkqtmh, SerumCommentCritically abnormal.The [facility] Johnston Physician GroupComment on above:Result Comment: Immunofixation shows IgG monoclonal protein with lambda light chain specificity.Performed By: #### CBC, CMP #### [place] [address] [place] #### UPE RAND, MG SERUM, B2-MICRO, SPE, KAPPA #### [facility] ,Immunoglobulin A, Serum79 mg/uCAmshhh54-404Sfn [facility] Physician GroupComment on above:Performed By: #### CBC, CMP #### [place] [address] [place] #### UPE RAND, MG SERUM, B2-MICRO, SPE, KAPPA #### [facility] ,Immunoglobulin G1276 mg/vFNfldqu680-2481Mup [facility] Physician GroupComment on above:Performed By: #### CBC, CMP #### [place] [address] [place] #### UPE RAND, MG SERUM, B2-MICRO, SPE, KAPPA #### [facility] ,Immunoglobulin M, Serum46 mg/rUBolgpd18-938Hom [facility] Johnston Physician GroupComment on above:Result Comment: Performed at: - [facility] [id number] Water Treatment Specialist: Kristian Castro PhD, Phone: [phone] By: #### CBC, CMP #### [place] [address] [place] #### UPE RAND, MG SERUM, B2-MICRO, SPE, KAPPA #### [facility] ,Laboratory - Chemistry and Chemistry - challengeOrdered By: Tatiana Douglas on 11-51-8468Yjwyoxr [Mass/Vol]1.0 g/dLHighNot ObservedOhiohealthLeukocytes [#/volume] corrected for nucleated erythrocytes in Blood by Automated counOrdered By: Tatiana Douglas on 23-87-4079TII corrected for nucl RBC Auto (Bld) [#/Vol]5.6 10*3/uL3.8-11.6FSelect Medical TriHealth Rehabilitation HospitalLeukocytes [#/volume] in Blood by Automated countOrdered By: Tatiana Vicentese on 31-33-2160VFJ (Bld) [#/Vol]5.6 10*3/uLNormal3.8-11.6FSelect Medical TriHealth Rehabilitation HospitalComment on above:Performed By: #### CBC, CMP #### [place] [address] [place] #### UPE RAND, MG SERUM, B2-MICRO, SPE, KAPPA #### [facility] ,Lymphocytes [#/volume] in Blood by Automated countOrdered By: Tatiana Vicentese on 15-28-0502Jqwoxtgeuxz (Bld) [#/Vol]0.9 10*3/uLLow1.00-4.8OhiohealthComment on above:Performed By: #### CBC, CMP #### [place] [address] [place] #### UPE RAND, MG SERUM, B2-MICRO, SPE, KAPPA #### [facility] ,Lymphocytes/100 leukocytes in Blood by Automated countOrdered By: Tatiana Vicentese on 43-06-6766Vjfdazdmzmv/100 WBC (Bld)16.8 %Normal.OhiohealthComment on above:Performed By: #### CBC, CMP #### [facility] [address] [place] [address] [place] #### UPE RAND, MG SERUM, B2-MICRO, SPE, KAPPA #### [facility] ,MCH [Entitic mass] by Automated countOrdered By: Tatiana Misael on 35-27-1411IYT (RBC) [Entitic mass]30.8 gwAblhyu69.7-34.3FSelect Medical TriHealth Rehabilitation Hospital Comment on above:Performed By: #### CBC, CMP #### [facility] [address] [place] [address] [place] #### UPE RAND, MG SERUM, B2-MICRO, SPE, KAPPA #### [facility] ,MCHC Auto (RBC) [Mass/Vol]Ordered By: Tatiana Douglas on 59-48-7302DFRO (RBC) [Mass/Vol]33.3 g/dL32.0-35.0OhiohealthMCV [Entitic volume] by Automated countOrdered By: Tatiana Douglas on 69-31-4078JBH (RBC) [Entitic vol]92.5 hFEsnjbl26-031IujizlpbiOhiohealthComment on above: Performed By: #### CBC, CMP #### [address] #### UPE RAND, MG SERUM, B2-MICRO, SPE, KAPPA #### [facility] ,Monocytes [#/volume] in Blood by Automated countOrdered By: Tatiana Douglas on 32-76-9041Twckdwusk (Bld) [#/Vol]0.5 10*3/uLNormal0.0-0.8OhiohealthComment on above:Performed By: #### CBC, CMP #### [place] [address] [place] #### UPE RAND, MG SERUM, B2-MICRO, SPE, KAPPA #### [facility] ,Monocytes/100 leukocytes in Blood by Automated countOrdered By: Tatiana Douglas on 12-39-4175Enmkpeaqz/100 WBC (Bld)9.7 %Normal.[facility] Comment on above:Performed By: #### CBC, CMP #### [place] [address] [place] #### UPE RAND, MG SERUM, B2-MICRO, SPE, KAPPA #### [facility] ,Neutrophils [#/volume] in Blood by Automated countOrdered By: Tatiana Douglas on 66-47-8527Nyugqnzppuc (Bld) [#/Vol]3.9 10*3/uLNormal1.8-7.7FSelect Medical TriHealth Rehabilitation HospitalComment on above:Performed By: #### CBC, CMP #### [facility] [address] [place] [address] [place] #### UPE RAND, MG SERUM, B2-MICRO, SPE, KAPPA #### [facility] ,Neutrophils/100 leukocytes in Blood by Automated countOrdered By: Tatiana Douglas on 38-85-4359Cwiqfzdlleo/100 WBC (Bld)69.9 %Normal.OhiohealthComment on above:Performed By: #### CBC, CMP #### [facility] [address] [place] [address] [place] #### UPE RAND, MG SERUM, B2-MICRO, SPE, KAPPA #### [facility] ,No Panel InformationOrdered By: Tatiana Douglas on 85-20-5505Fieylcfcn GFR (CKD-EPI)> 60.0 mL/MinOhiohealthPharmacy Creatinine Clearance (Chem 53.31OhiohealthProtein Electrophoresis NoteComment. OhiohealthComment on above:Protein electrophoresis scan will follow via computer,mail, or apple peeler operator delivery.Performed at: [facility] [place] [id number] Director: Kristian Castro PhD, Phone: [phone] Random Prot Electrophor NoteComment.OhiohealthComment on above:Protein electrophoresis scan will follow via computer,mail, or apple peeler operator delivery.Performed at: [facility] [address] [place], [place] [id number] Director: Kristian Castro PhD, Phone: [phone] Nucleated erythrocytes [Presence] in Blood by Automated countOrdered By: Tatiana Douglas on 61-47-1860Dlmshafdh RBC Auto Ql (Bld)0.1 /100{WBC}0-0.5FSelect Medical TriHealth Rehabilitation HospitalPlatelet mean volume [Entitic volume] in Blood by Automated countOrdered By: Tatiana Douglas on 17-67-9058Lyjvxbyr mean volume (Bld) [Entitic vol]9.9 fLNormal6.3-10.7FSelect Medical TriHealth Rehabilitation HospitalComment on above:Performed By: #### CBC, CMP #### [place] [address] [place] #### UPE RAND, MG SERUM, B2-MICRO, SPE, KAPPA #### [facility] ,Platelets [#/volume] in Blood by Automated countOrdered By: Tatiana Vicentese on 16-62-2296Ggjqxusfm (Bld) [#/Vol]206 10*3/wUAeeugf910-551JccxtrmijOhiohealthComment on above:Performed By: #### CBC, CMP #### [place] [address] [place] #### UPE RAND, MG SERUM, B2-MICRO, SPE, KAPPA #### [facility] ,Potassium [Moles/volume] in Serum or PlasmaOrdered By: Tatiana Vicentese on 02-06-2024 Potassium [Moles/Vol]4.2 mmol/LNormal3.5-5.1FSelect Medical TriHealth Rehabilitation Hospital Comment on above:Performed By: #### CBC, CMP #### [place] [address] [place] #### UPE RAND, MG SERUM, B2-MICRO, SPE, KAPPA #### [facility] ,Protein Electro, Random Urineon 11-25-1534Behxltu, Urine25.3 %Normal.The [facility] Johnston Physician GroupComment on above:Performed By: #### CBC, CMP #### [facility] [address] [place] [address] [place] #### UPE RAND, MG SERUM, B2-MICRO, SPE, KAPPA #### [facility] ,Bhdtr-3-Bhyfiola, Urine3.4 %Normal.The [facility] Johnston Physician GroupComment on above:Performed By: #### CBC, CMP #### [place] [address] [place] #### UPE RAND, MG SERUM, B2-MICRO, SPE, KAPPA #### [facility] ,Ggjrl-2-Zxbysnmu, Urine7.9 %Normal.The [facility] Johnston Physician GroupComment on above:Performed By: #### CBC, CMP #### [place] [address] [place] #### UPE RAND, MG SERUM, B2-MICRO, SPE, KAPPA #### [facility] ,Beta Globulin, Urine48.0 %Normal.The [facility] Johnston Physician GroupComment on above: Performed By: #### CBC, CMP #### [place] [address] [place] #### UPE RAND, MG SERUM, B2-MICRO, SPE, KAPPA #### [facility] ,Gamma Globulin, Urine15.3 %Normal.The [facility] Johnston Physician GroupComment on above:Performed By: #### CBC, CMP #### [place] [address] [place] #### UPE RAND, MG SERUM, B2-MICRO, SPE, KAPPA #### [facility] ,M-David %Not ObservedNormalNot ObservedThe [facility] Johnston Physician GroupComment on above:Performed By: #### CBC, CMP #### [place] [address] [place] #### UPE RAND, MG SERUM, B2-MICRO, SPE, KAPPA #### [facility] ,Please Note:CommentNormal.The [facility] Johnston Physician GroupComment on above:Result Comment: Protein electrophoresis scan will follow via computer, mail, or apple peeler operator delivery. Performed at: [address] [id number] Water Treatment Specialist: Kristian Castro PhD, Phone: [phone] PERFORMED BY: [place] [address] PATHOLOGIST PIGMENT PROCESSOR NOHEMY STEPHENS M.D.Performed By: #### CBC, CMP #### [address] #### UPE RAND, MG SERUM, B2-MICRO, SPE, KAPPA #### [facility] ,Protein Electrophoresis, Serumon 66-20-1798Yrlbb-1-Globulin0.3 g/dLNormal 0.0-0.4The [facility] Johnston Physician GroupComment on above:Performed By: #### CBC, CMP #### [address] #### UPE RAND, MG SERUM, B2-MICRO, SPE, KAPPA #### [facility] ,Nmmeh-4-Kqykqbuq6.8 g/dLNormal0.4-1.0The [facility] Johnston Physician GroupComment on above:Performed By: #### CBC, CMP #### [place] [address] [place] #### UPE RAND, MG SERUM, B2-MICRO, SPE, KAPPA #### [facility] ,Beta Globulin1.0 g/dLNormal0.7-1.3The [facility] Johnston Physician GroupComment on above:Performed By: #### CBC, CMP #### [address] #### UPE RAND, MG SERUM, B2-MICRO, SPE, KAPPA #### [facility] ,Gamma Globulin1.2 g/dLNormal0.4-1.8The [facility] Johnston Physician GroupComment on above:Performed By: #### CBC, CMP #### [facility] [address] [place] [address] [place] #### UPE RAND, MG SERUM, B2-MICRO, SPE, KAPPA #### [facility] ,M-Spike1.0 g/dLHighNot ObservedThe [facility] Johnston Physician GroupComment on above: Performed By: #### CBC, CMP #### [address] #### UPE RAND, MG SERUM, B2-MICRO, SPE, KAPPA #### [facility] ,SPE-NoteCommentNormal.The [facility] Johnston Physician GroupComment on above:Result Comment: Protein electrophoresis scan will follow via computer, mail, or apple peeler operator delivery. Performed at: [address] [id number] Water Treatment Specialist: Kristian Castro PhD, Phone: [phone] By: #### CBC, CMP #### [address] #### UPE RAND, MG SERUM, B2-MICRO, SPE, KAPPA #### [facility] ,Protein [Mass/volume] in Serum or PlasmaOrdered By: Tatiana Douglas on 02-06-2024 Protein [Mass/Vol]7.2 g/dLNormal6.4-8.9OhiohealthComment on above:Performed By: #### CBC, CMP #### [address] #### UPE RAND, MG SERUM, B2-MICRO, SPE, KAPPA #### [facility] ,Serum free kappa light chain measurementOrdered By: Tatiana Douglas on 02-06-2024 Immunoglobulin light chains.kappa.free (S) [Mass/Vol]26.2 mg/LHigh3.3-19.4 [facility]ic[facility] Hospitalerum globulin measurement (mass/volume)Ordered By: Tatiana Douglas on 86-85-9202Ejkxmnch (S) [Mass/Vol]3.2 g/dLNormal2.2-3.9 OhiohealthComment on above:Performed By: #### CBC, CMP #### [place] [address] [place] #### UPE RAND, MG SERUM, B2-MICRO, SPE, KAPPA #### [facility] ,Serum globulin measurement by calculation (mass/volume)Ordered By: Tatiana Douglas on 73-07-9491Zzlfrgwb (S) [Mass/Vol]2.9 g/dLNoMercy Health St. Rita's Medical CenterComment on above:Performed By: #### CBC, CMP #### [place] [address] [place] #### UPE RAND, MG SERUM, B2-MICRO, SPE, KAPPA #### [facility] ,Serum immunoglobulin free kappa light chains/immunoglobulin free lambda light chainsOrdered By: Tatiana Misael on 90-95-0558Rgfhfpzisfvpts light chains.kappa.free/Immunoglobulin light chains.lambda.free (S) [Mass ratio]0.33 0.26-1.65OhiohealthComment on above:Performed at: [facility] [address] [id number] Director: Kristian Castro PhD, Phone: [phone] or plasma IgA measurement (mass/volume) Ordered By: Tatiana Douglas on 05-16-4919JhD [Mass/Vol]79 mg/uA80-671OciadcjlbChillicothe Hospitalerum or plasma IgG measurement (mass/volume)Ordered By: Tatiana Douglas on 57-21-8153WmG [Mass/Vol]1276 mg/lJ053-6298NctgmraxfChillicothe Hospitalerum or plasma IgM measurement (mass/volume)Ordered By: Tatiana Douglas on 36-16-4041PhQ [Mass/Vol]46 mg/tS56-130AlnqcguaxOhiohealth Comment on above:Performed at: [facility] [address] [id number] Director: Kristian Castro PhD, Phone: [phone] or plasma albumin measurement (mass/volume)Ordered By: Tatiana Douglas on [id number] [Mass/Vol]3.7 g/dLNormal2.9-4.4FSelect Medical TriHealth Rehabilitation HospitalComment on above:Performed By: #### CBC, CMP #### [facility] [address] [place] [address] [place] #### UPE RAND, MG SERUM, B2-MICRO, SPE, KAPPA #### [facility] ,Serum or plasma albumin/globulin mass ratioOrdered By: Tatiana Douglas on 02-06-2024 Albumin/Globulin [Mass ratio]1.5 {ratio}NormalOhiohealth Comment on above:Performed By: #### CBC, CMP #### [facility] [address] [place] [address] [place] #### UPE RAND, MG SERUM, B2-MICRO, SPE, KAPPA #### [facility] ,Albumin/Globulin [Mass ratio]1.2 {ratio}Normal0.7-1.7FSelect Medical TriHealth Rehabilitation HospitalComment on above:Performed By: #### CBC, CMP #### [facility] [address] [place] [address] [place] #### UPE RAND, MG SERUM, B2-MICRO, SPE, KAPPA #### [facility] ,Serum or plasma alpha 1 globulin measurement by electrophoresis (mass/volume) Ordered By: Tatiana Douglas on 17-66-6821Rfojx 1 globulin Elph [Mass/Vol]0.3 g/dL 0.0-0.4FDunlap Memorial Hospitalerum or plasma alpha 2 globulin measurement by electrophoresis (mass/volume)Ordered By: Tatiana Douglas on 02-06-2024 Alpha 2 globulin Elph [Mass/Vol]0.8 g/dL0.4-1.0[facility] Serum or plasma anion gap determinationOrdered By: Tatiana Douglas on 11-56-4995Qjfec gap [Moles/Vol]13.1 mmol/LNormal6.0-15.0OhiohealthComment on above:Performed By: #### CBC, CMP #### [facility] [address] [place] [address] [place] #### UPE RAND, MG SERUM, B2-MICRO, SPE, KAPPA #### [facility] ,Serum or plasma beta globulin measurement by electrophoresis (mass/volume) Ordered By: Tatiana Douglas on 43-80-4621Ybaf globulin Elph [Mass/Vol]1.0 g/dL0.7-1.3 [facility] Hospitalerum or plasma cjne-4-frwhqlyfxmtmg measurement (mass/volume)Ordered By: Tatiana Douglas on 97-97-1042Cjxh-2-Microglobulin [Mass/Vol]2.3 ug/mL0.6-2.4FSelect Medical TriHealth Rehabilitation HospitalComment on above: Siemens Immulite 2000 Immunochemiluminometric assay (ICMA)Values obtained with different assay methods or kits cannotbe used interchangeably. Results cannot be interpreted asabsolute evidence of the presence or absence of malignantdisease.Performed at: [facility] [id number] Director: Camila Mckeon MD, Phone: [phone] or plasma gamma globulin measurement by electrophoresis (mass/volume)Ordered By: Tatiana Douglas on 48-61-9490Uxrjl globulin Elph [Mass/Vol]1.2 g/dL0.4-1.8[facility] Hospitalerum or plasma immunoglobulin free lambda light chains measurement (mass/volume)Ordered By: Tatiana Douglas on 51-37-5742Pmbvsxaciejmgg light chains.lambda.free [Mass/Vol]80.3 mg/LHigh5.7-26.3FDunlap Memorial Hospitalerum total protein measurementOrdered By: Tatiana Douglas on 58-25-8368Ukwfvbd [Mass/Vol]6.9 g/dLNormal6.0-8.5FSelect Medical TriHealth Rehabilitation HospitalComment on above:Performed By: #### CBC, CMP #### [facility] [address] [place] [address] [place] #### UPE RAND, MG SERUM, B2-MICRO, SPE, KAPPA #### [facility] ,Sodium [Moles/volume] in Serum or PlasmaOrdered By: Tatiana Douglas on 02-06-2024 Sodium [Moles/Vol]141 mmol/LWzxcen428-339NumfnwgsvOhiohealth Comment on above:Performed By: #### CBC, CMP #### [facility] [address] [place] [address] [place] #### UPE RAND, MG SERUM, B2-MICRO, SPE, KAPPA #### [facility] ,Urea nitrogen [Mass/volume] in Serum or PlasmaOrdered By: Tatiana Douglas on 57-51-7480Fuzy nitrogen [Mass/Vol]28 mg/dLLawrence General Hospital-[address] [place], [place] [address]Comment on above:Performed By: #### CBC, CMP #### [facility] [address] [place] [address] [place] #### UPE RAND, MG SERUM, B2-MICRO, SPE, KAPPA #### [facility] ,Urine alpha 1 globulin/total protein by electrophoresisOrdered By: Tatiana Douglas on 34-98-7900Psfwp 1 globulin Elph (U) [Mass fraction]3.4 %.OhiohealthUrine alpha 2 globulin/total protein ratio by electrophoresis Ordered By: Tatiana Douglas on 31-60-8046Ewgbz 2 globulin Elph (U) [Mass fraction]7.9 %.OhiohealthUrine beta globulin measurement by electrophoresis (mass/volume)Ordered By: Tatiana Douglas on 52-73-8870Vhvh globulin Elph (U) [Mass/Vol]48.0 %.OhiohealthUrine protein measurement (mass/volume)Ordered By: Tatiana Douglas on 13-05-6460Qoaoydh (U) [Mass/Vol]4.2 mg/dLNormalNot Estab.OhiohealthComment on above:Performed By: #### CBC, CMP #### [place] [address] [place] #### [place] RAND, MG SERUM, B2-MICRO, SPE, KAPPA #### [facility] ,HCV Antibody RFX to Quant PCRon 69-71-6062NOA IgG IA QlNon-ReactiveInvalid Interpretation CodeNon ReactiveFisher Western Maryland Hospital CenterComment on above: Result Comment: Performed at: [facility] [address] [id number] PhD Gloria TownsendPerformed By: #### [id number] #### [facility] [address] [place] [address] 82259QQEVXZYFYSgzyqjd By: SYSTEM SYSTEM on 15-80-8537Nyowpwc [Mass/Vol]4.1 g/dLNormal3.3 - 5.0 gm/dLRemisol ChemAlbumin/Globulin [Mass ratio] 1.5 {ratio}Normal1.1 - 2.2Remisol ChemALP [Catalytic activity/Vol]80 [iU]/d Oeiymd95 - 98 Int._Unit/LRemisol ChemALT No additional P-5'-P [Catalytic activity/Vol]17 [iU]/dNormal6 - 46 Int._Unit/LRemisol ChemAnion gap [Moles/Vol]9 mmol/LNormal6 - 16 mEq/LRemisol ChemAST [Catalytic activity/Vol]28 [iU]/dNormal 5 - 43 Int._Unit/LRemisol ChemBilirubin [Mass/Vol]0.9 mg/dLNormal0.0 - 1.1 mg/dL Remisol ChemCalcium [Mass/Vol]10.2 mg/dLNormal8.9 - 11.1 mg/dLRemisol Chem Chloride [Moles/Vol]106 mmol/LEbufag071 - 111 mmol/LRemisol ChemCholesterol [Mass/Vol]159 mg/cRDtezwt816 - 200 mg/dLRemisol ChemCholesterol in HDL [Mass/Vol]76 mg/dLInvalid Interpretation CodeRemisol ChemComment on above:Result Comment: '>= 60 LOW RISK' '<= 40 HIGH RISK'Cholesterol in LDL [Mass/Vol]66 mg/dLNormal<=129mg/dLRemisol ChemCholesterol in VLDL [Mass/Vol]13 mg/dLNormal7 - 40 mg/dLRemisol ChemCO2 [Moles/Vol]29 mmol/HPsfbvs76 - 31 mmol/LRemisol ChemCreatinine [Mass/Vol]0.9 mg/dLNormal0.5 - 1.3 mg/dLRemisol PhchoCEK09 mL/min/1.73 h0Pdbhmv>=59mL/min/1.73 d4Uyyoayv ChemGlobulin (S) [Mass/Vol]2.7 g/dLNormal1.4 - 4.0 gm/dLRemisol Chem Glucose [Mass/Vol]84 mg/nBHybkso91 - 199 mg/dLRemisol ChemPotassium [Moles/Vol] 4.1 mmol/LNormal3.5 - 5.3 mmol/LRemisol ChemProtein [Mass/Vol]6.8 g/dLNormal6.0 - 7.8 gm/dLRemisol ChemSodium [Moles/Vol]140 mmol/YNgbeyk268 - 145 mmol/LRemisol ChemTriglyceride [Mass/Vol]66 mg/dLNormal<=149mg/dLRemisol ChemTSH Qn0.68 m[IU]/LNormal0.34 - 5.60 mcIU/mLRemisol ChemUrea nitrogen [Mass/Vol]26 mg/dLHigh 5 - 21 mg/dLRemisol ChemUrea nitrogen/Creatinine [Mass ratio]29 mg/pxAvmi52 - 20 Remisol ChemCMPon 95-13-2638Xkpzqdu [Mass/Vol]4.1 g/dLNormal3.3-5.0Cleveland ClinicComment on above:Performed By: #### [id number] #### [facility] [address] [place] [address]Wkmgeww/Globulin (S) [Mass conc ratio]1.9Fxquvo2.1-2.2FCleveland Clinic Mentor HospitalComment on above:Performed By: #### [id number] #### [facility] [address] [place] [address] 78496PMA [Catalytic activity/Vol]80 Int._Unit/TGfjwmp68-66SxwxxvCleveland ClinicComment on above:Performed By: #### [id number] #### [facility] [address] [place], [place] [address]MLQ No additional P-5'-P [Catalytic activity/Vol]17 Int._Unit/L Normal6-46Cleveland ClinicComment on above:Performed By: #### [id number] #### [facility] [address] [place], [place] [address]Eazdb gap [Moles/Vol]9 mmol/LNormal6-16Cleveland ClinicComment on above:Performed By: #### [id number] #### [facility] [address] [place], [place] [address]LFC [Catalytic activity/Vol]28 Int._Unit/LNormal5-43Cleveland ClinicComment on above:Performed By: #### [id number] #### [facility] [address] [place], [place] [address]Xyqqtcbjx [Mass/Vol]0.9 mg/dLNormal0.0-1.1FCleveland Clinic Mentor HospitalComment on above:Performed By: #### [id number] #### [facility] [address] [place], [place] [address]Upbcljx [Mass/Vol]10.2 mg/dLNormal8.9-11.1FCleveland Clinic Mentor HospitalComment on above:Performed By: #### [id number] #### [facility] [address] [place], [place] [address]Qyerqcqk [Moles/Vol]106 mmol/TNogmxl354-274GrtwtmCleveland ClinicComment on above:Performed By: #### [id number] #### [facility] [address] [place], [place] [address]IA8 [Moles/Vol]29 mmol/VWomagw69-86AzxqtiCleveland Clinic Comment on above:Performed By: #### [id number] #### [facility] [address] [place], [place] [address]Upogpntzoq [Mass/Vol]0.9 mg/dLNormal0.5-1.3FCleveland Clinic Mentor HospitalComment on above:Performed By: #### [id number] #### [facility] [address] [place], [place] [address]Gazpemix (S) [Mass/Vol]2.7 g/dLNormal1.4-4.0Cleveland ClinicComment on above:Performed By: #### [id number] #### [facility] [address] [place], [place] [address]Slpvsml [Mass/Vol]84 mg/eJTppdsu77-928DqjzhnCleveland ClinicComment on above:Performed By: #### [id number] #### [facility] [address] [place], [place] [address]Nfyznsiop [Moles/Vol]4.1 mmol/LNormal3.5-5.3FCleveland Clinic Mentor HospitalComment on above:Performed By: #### [id number] #### [facility] [address] [place], [place] [address]Ykoqzye [Mass/Vol]6.8 g/dLNormal6.0-7.8Cleveland ClinicComment on above:Performed By: #### [id number] #### [facility] [address] [place], [place] [address]Wizmez [Moles/Vol]140 mmol/MJcmcql598-781PsahzfCleveland ClinicComment on above:Performed By: #### [id number] #### [facility] [address] [place], [place] [address]Vxdw nitrogen [Mass/Vol]26 mg/dLHigh5-21Cleveland ClinicComment on above:Performed By: #### [id number] #### [facility] [address] [place], [place] [address]Fxxd nitrogen/Creatinine [Mass ratio]29 No JabqpOxax65-05EhdvobCleveland ClinicComment on above:Performed By: #### [id number] #### [facility] [address] [place], [place] [address]Scjxe Panelon 03-73-4540Pzsbsodoxlo [Mass/Vol]159 mg/dLNormal 120-200Cleveland ClinicComment on above:Performed By: #### [id number] #### [facility] [address] [place], [place] [address]Evntpyygcfj in HDL [Mass/Vol]76 mg/dLInvalid Interpretation CodeCleveland ClinicComment on above:Result Comment: '>= 60 LOW RISK' '<= 40 HIGH RISK'Performed By: #### [id number] #### [facility] [address] [place], [place] [address]Frisepnpfjz in LDL [Mass/Vol]66 mg/dLNormal<=129Cleveland ClinicComment on above:Performed By: #### [id number] #### [facility] [address] [place], [place] [address]Jwowpavjwdn in VLDL [Mass/Vol]13 mg/dLNormal7-40Cleveland ClinicComment on above:Performed By: #### [id number] #### [facility] [address] [place], [place] [address]Fqfzzifntnwr [Mass/Vol]66 mg/dLNormal<=149FishBrandenburg CenterComment on above:Performed By: #### [id number] #### [facility] [address] [place], [place] [address]CAE With T4fr Reflexon 99-37-3958PCW Qn0.68 m[IU]/LNormal 0.34-5.60Cleveland ClinicComment on above:Performed By: #### [id number] #### [facility] [address] [place], [place] [address]ySQZtc 94-74-7671uVGT70 mL/min/1.73 x1Wxbmel>=59Cleveland ClinicComment on above:Performed By: #### [id number] #### [facility] [address] [place], [place] [address]Favqyjqr percentageOrdered By: Tatiana Douglas on 51-87-1824Kpkrqepi zupkcpmrya562 ug/gH16-723WmttwjxyvOhiohealthComment on above:This test was developed and its performance characteristicsdetermined by [facility]. It has not been cleared orapproved by the Food and Drug Administration. Detection Limit = 5Performed at: [facility] - [address] [place], [place] [id number] Director: Camila Mckeon MD, Phone: [phone] [Mass/volume] in Serum or PlasmaOrdered By: Tatiana Douglas on 67-41-7762Cgokvq [Mass/Vol]17.8 ng/mL>5.9OhiohealthComment on above:Folate reference range: >5.9 ng/mlThe WHO technical consultation on folate and vitamin e07dipovfu ncies has determined that folate concentrations lessthan 4 ng/ml are considered deficient.Serum or plasma vxye-2-grhrdjqgzyqzk measurement (mass/volume)Ordered By: Tatiana Douglas on 42-31-6899Eupg-2-Microglobulin [Mass/Vol]2.3 ug/mL0.6-2.4 OhiohealthComment on above:Siemens Immulite 2000 Immunochemiluminometric assay (ICMA)Values obtained with different assay methods or kits cannotbe used interchangeably. Results cannot be interpreted asabsolute evidence of the presence or absence of malignantdisease.Performed at: [facility] - [facility] [address] [id number] Director: Camila Mckeon MD, Phone: [phone] or plasma ceruloplasmin measurement (mass/volume)Ordered By: Tatiana Douglas on 33-77-4478Kdqgrypbfzlow [Mass/Vol]22.1 mg/dL19.0-39.0OhiohealthComment on above:Performed at: - [facility] [address] [id number] Director: Kristian Castro PhD, Phone: [phone] B12 ser/plasOrdered By: Tatiana Douglas on 40-58-5499Ubilouysx (Vitamin B12) [Mass/Vol]284 pg/gI118-969TtjedpsboOhiohealthActivated partial thromboplastin time (aPTT) in platelet poor plasma by coagulation aOrdered By: Tatiana Douglas on 70-54-1406lHQY Coag (PPP) [Time] 32.9 s25.1-36.5FSelect Medical TriHealth Rehabilitation HospitalComment on above:A hematocrit value greater than 55% may lead to inaccurate results in coagulation testing. Patientshaving hematocrit values >55% require a special collection tube for coagulation studies. Please contact the laboratory at [phone] for redraw instructions.Basophils Auto (Bld) [#/Vol]Ordered By: Tatiana Douglas on 08-08-2023 Basophils (Bld) [#/Vol]0.0 10*3/uL0.0-0.2FSelect Medical TriHealth Rehabilitation Hospital Basophils/100 WBC Auto (Bld)Ordered By: Tatiana Douglas on 87-07-0860Uxjcvanqu/100 WBC (Bld)0.8 %.OhiohealthEosinophils Auto (Bld) [#/Vol] Ordered By: Tatiana Douglas on 19-70-1929Ekozcesdbxs (Bld) [#/Vol]0.1 10*3/uL0.0-0.45 OhiohealthEosinophils/100 WBC Auto (Bld)Ordered By: Tatiana Douglas on 35-22-9119Zizcgladcmy/100 WBC (Bld)2.2 %.OhiohealthErythrocyte distribution width Auto (RBC) [Ratio]Ordered By: Tatiana Douglas on 41-73-3107Pzsmoaquzvy distribution width (RBC) [Ratio]13.6 %11.9-15.3FSelect Medical TriHealth Rehabilitation HospitalHematocrit Auto (Bld) [Volume fraction]Ordered By: Tatiana Douglas on 62-72-1460Kldlmwxmlb (Bld) [Volume fraction]39.8 %34.0-46.4FSelect Medical TriHealth Rehabilitation HospitalHemoglobin [Mass/volume] in BloodOrdered By: Tatiana Douglas on 18-30-5361Cjyqnkrhpi (Bld) [Mass/Vol]13.4 g/dL11.8-15.4FSelect Medical TriHealth Rehabilitation HospitalINR in Platelet poor plasma by Coagulation assayOrdered By: Tatiana Douglas on 10-68-2888ONB Coag (PPP) [Relative time]0.9 {INR}OhiohealthComment on above:INR Therapeutic Range A) Pre- and Peroperative OAT started two weeks before surgery. NOT HIP SURGERY: 1.5 - 2.5 HIP SURGERY: 2 - 3B) Primary and secondary prevention of venous THROMBOSIS: 2 - 3C) Active venous thrombosis, pulmonary embolismand prevention of recurrent venous thrombosis: 2 - 3D) Prevention of arterial thromboembolismincluding patients with mechanical heart valves: 3 - 4.5Leukocytes [#/volume] corrected for nucleated erythrocytes in Blood by Automated counOrdered By: Tatiana Douglas on 96-37-0295WVN corrected for nucl RBC Auto (Bld) [#/Vol]5.7 10*3/uL3.8-11.6 OhiohealthLymphocytes Auto (Bld) [#/Vol]Ordered By: Tatiana Douglas on 37-29-5237Jqmxiobuuqr (Bld) [#/Vol]1.4 10*3/uL1.00-4.8OhiohealthLymphocytes/100 WBC Auto (Bld)Ordered By: Tatiana Douglas on 97-95-1894Lwgtkouqwvt/100 WBC (Bld)25.0 %.[facility]H Auto (RBC) [Entitic mass]Ordered By: Tatiana Douglas on 18-93-2419NNY (RBC) [Entitic mass]30.5 pg24.7-34.3FSelect Medical TriHealth Rehabilitation HospitalMCHC Auto (RBC) [Mass/Vol] Ordered By: Tatiana Douglas on 21-71-9233DEFW (RBC) [Mass/Vol]33.6 g/dL32.0-35.0 OhiohealthMCV Auto (RBC) [Entitic vol]Ordered By: Tatiana Douglas on 56-82-0598PFA (RBC) [Entitic vol]90.9 rB92-090LwkqilklvOhiohealthMonocytes Auto (Bld) [#/Vol]Ordered By: Tatiana Douglas on 08-08-2023 Monocytes (Bld) [#/Vol]0.5 10*3/uL0.0-0.8[facility] Monocytes/100 WBC Auto (Bld)Ordered By: Tatiana Douglas on 67-19-5519Peloolsdk/100 WBC (Bld)9.4 %.OhiohealthNeutrophils Auto (Bld) [#/Vol] Ordered By: Tatiana Douglas on 67-72-1298Fzrxsgzfjla (Bld) [#/Vol]3.6 10*3/uL1.8-7.7 OhiohealthNeutrophils/100 WBC Auto (Bld)Ordered By: Tatiana Douglas on 86-61-1854Phamafpslsg/100 WBC (Bld)62.6 %.OhiohealthNucleated erythrocytes [Presence] in Blood by Automated countOrdered By: Tatiana Douglas on 78-26-5881Yfdfrbvda RBC Auto Ql (Bld)0.1 /100{WBC}0-0.5FSelect Medical TriHealth Rehabilitation HospitalPlatelet mean volume Auto (Bld) [Entitic vol]Ordered By: Tatiana Douglas on 87-54-2801Yjcdzxun mean volume (Bld) [Entitic vol]9.4 fL6.3-10.7 OhiohealthPlatelets Auto (Bld) [#/Vol]Ordered By: Tatiana Douglas on 29-53-7140Edpxuwuxn (Bld) [#/Vol]183 10*3/eN024-281YgmcfkcoyOhiohealthProthrombin time (PT)Ordered By: Tatiana Douglas on 28-90-4155PD Coag (PPP) [Time]10.7 s9.0-12.9OhiohealthComment on above:A hematocrit value greater than 55% may lead to inaccurate results in coagulation testing. Patientshaving hematocrit values >55% require a special collection tube for coagulation studies. Please contact the laboratory at [phone] for redraw instructions.RBC Auto (Bld) [#/Vol]Ordered By: Tatiana Douglas on 99-48-8256ERF (Bld) [#/Vol]4.38 10*6/uL3.60-5.00OhiohealthWBC Auto (Bld) [#/Vol]Ordered By: Tatiana Douglas on 36-99-0468MFK (Bld) [#/Vol]5.7 10*3/uL 3.8-11.6FSelect Medical TriHealth Rehabilitation HospitalAlanine aminotransferase [Enzymatic activity/volume] in Serum or PlasmaOrdered By: Tatiana Douglas on 06-77-5476JFN [Catalytic activity/Vol]15 U/L7-52OhiohealthAlbumin [Mass/volume] in Serum or PlasmaOrdered By: Tatiana Douglas on 35-79-2642Dhhjsgb [Mass/Vol]3.9 g/dL2.9-4.4FSelect Medical TriHealth Rehabilitation HospitalAlbumin [Mass/volume] in Serum or Plasma by Bromocresol green (BCG) dye binding methoOrdered By: Tatiana Douglas on 28-00-3446Mqqxhkm BCG dye [Mass/Vol]4.4 g/dL3.5-5.7FSelect Medical TriHealth Rehabilitation HospitalAlbumin/Protein.total in 24 hour Urine by ElectrophoresisOrdered By: Tatiana Douglas on 05-12-7759Zvekwjr Elph (24H U) [Mass fraction]23.6 %.OhiohealthAlkaline phosphatase [Enzymatic activity/volume] in Serum or PlasmaOrdered By: Tatiana Douglas on 70-76-2082LFP [Catalytic activity/Vol]84 U/L 34-104OhiohealthAspartate aminotransferase [Enzymatic activity/volume] in Serum or PlasmaOrdered By: Tatiana Douglas on 85-55-8757GQP [Catalytic activity/Vol]23 U/U48-31SegklcvbfOhiohealthBasophils Auto (Bld) [#/Vol]Ordered By: Tatiana Douglas on 65-82-7058Pqrbawjaj (Bld) [#/Vol]0.0 10*3/uL0.0-0.2FSelect Medical TriHealth Rehabilitation HospitalBasophils/100 WBC Auto (Bld) Ordered By: Tatiana Douglas on 24-57-5128Jjxphezqj/100 WBC (Bld)0.7 %.OhiohealthBilirubin.total [Mass/volume] in Serum or PlasmaOrdered By: Tatiana Douglas on 93-54-8601Erktvgyiw [Mass/Vol]0.7 mg/dL0.3-1.0OhiohealthBurr cells [Presence] in Blood by Light microscopyOrdered By: Tatiana Douglas on 32-99-0498Hhjw cells LM Ql (Bld)SlightOhiohealthCalcium [Mass/volume] in Serum or PlasmaOrdered By: Tatiana Douglas on 73-04-6704Ygvrzgz [Mass/Vol]9.7 mg/dL8.6-10.3FSelect Medical TriHealth Rehabilitation Hospital Carbon dioxide, total [Moles/volume] in Serum or PlasmaOrdered By: Tatiana Douglas on 44-18-6174JW7 [Moles/Vol]30.4 mmol/L21.0-31.0[facility] Chloride [Moles/volume] in Serum or PlasmaOrdered By: Tatiana Douglas on 07-18-2023 Chloride [Moles/Vol]107 mmol/O84-618ZunhevaimOhiohealthCreatinine [Mass/volume] in Serum or PlasmaOrdered By: Tatiana Douglas on 22-69-6593Xagnxgdyap [Mass/Vol]0.85 mg/dL0.60-1.20OhiohealthCreatinine [Mass/volume] in UrineOrdered By: Tatiana Douglas on 43-16-6625Zjrrifnccq (U) [Mass/Vol]85.0 mg/dLOhiohealthComment on above:No reference range establishedEosinophils Auto (Bld) [#/Vol]Ordered By: Tatiana Douglas on 80-46-0188Vabobaoqthn (Bld) [#/Vol]0.2 10*3/uL0.0-0.45OhiohealthEosinophils/100 WBC Auto (Bld)Ordered By: Tatiana Douglas on 07-18-2023 Eosinophils/100 WBC (Bld)2.8 %.OhiohealthErythrocyte distribution width Auto (RBC) [Ratio]Ordered By: Tatiana Douglas on 07-18-2023 Erythrocyte distribution width (RBC) [Ratio]13.4 %11.9-15.3FSelect Medical TriHealth Rehabilitation HospitalGamma globulin/Protein.total in 24 hour Urine by Electrophoresis Ordered By: Tatiana Douglas on 53-81-0672Evspy globulin Elph (24H U) [Mass fraction] 14.6 %.OhiohealthGlobulin Calc (S) [Mass/Vol]Ordered By: Tatiana Douglas on 71-04-5184Eoaplubz (S) [Mass/Vol]2.7 g/dLOhiohealthGlucose [Mass/volume] in Serum or PlasmaOrdered By: Tatiana Douglas on 01-70-4363Vbvkgzs [Mass/Vol]75 mg/cN84-433GcikgtdxhOhiohealth Comment on above:ADA recommended reference rangeRandom Glucose Reference Range is dependent on time and content of last meal. Glucose of more than 200 mg/dL in a nonstressed, ambulatory subject supports the diagnosisof Diabetes Mellitus. Hematocrit Auto (Bld) [Volume fraction]Ordered By: Tatiana Douglas on 07-18-2023 Hematocrit (Bld) [Volume fraction]41.4 %34.0-46.4FSelect Medical TriHealth Rehabilitation HospitalHemoglobin [Mass/volume] in BloodOrdered By: Tatiana Douglas on 07-18-2023 Hemoglobin (Bld) [Mass/Vol]13.7 g/dL11.8-15.4FSelect Medical TriHealth Rehabilitation Hospital IgA [Mass/volume] in Serum or PlasmaOrdered By: Tatiana Douglas on 86-14-1984BwX [Mass/Vol]78 mg/hM42-909ZfmdrpjaqOhiohealthIgG [Mass/volume] in Serum or PlasmaOrdered By: Tatiana Douglas on 18-03-3040TgK [Mass/Vol]1223 mg/dL 586-1602OhiohealthIgM [Mass/volume] in Serum or Plasma Ordered By: Tatiana Douglas on 94-93-6944SqK [Mass/Vol]39 mg/dR21-948WvklnlizhOhiohealthComment on above:Performed at: [employer] [address] [id number] Director: Kristian Castro PhD, Phone: [phone] light chains.kappa.free [Mass/volume] in SerumOrdered By: Tatiana Douglas on 17-62-2075Lvcnhachtlyluy light chains.kappa.free (S) [Mass/Vol] 27.8 mg/LHigh3.3-19.4FSelect Medical TriHealth Rehabilitation HospitalImmunoglobulin light chains.kappa.free/Immunoglobulin light chains.lambda.free [MassOrdered By: Tatiana Douglas on 38-10-6339Zwiseaetqurjxk light chains.kappa.free/Immunoglobulin light chains.lambda.free (S) [Mass ratio]0.350.26-1.65OhiohealthComment on above:Performed at: [facility] [address] [id number] Director: Kristian Castro PhD, Phone: [phone] Immunoglobulin light chains.lambda.free [Mass/volume] in Serum or PlasmaOrdered By: Tatiana Douglas on 27-04-4329Kpmiaplsjomtwk light chains.lambda.free [Mass/Vol] 80.5 mg/LHigh5.7-26.3FSelect Medical TriHealth Rehabilitation HospitalLaboratory - Chemistry and Chemistry - challengeOrdered By: Tatiana Douglas on 79-99-1579Aphpbiy [Mass/Vol]1.0 g/dLHighNot ObservedOhiohealthLeukocytes [#/volume] corrected for nucleated erythrocytes in Blood by Automated counOrdered By: Tatiana Douglas on 47-10-5511SYV corrected for nucl RBC Auto (Bld) [#/Vol]5.8 10*3/uL 3.8-11.6FSelect Medical TriHealth Rehabilitation HospitalLymphocytes Auto (Bld) [#/Vol]Ordered By: Tatiana Douglas on 87-94-5925Xaisngrdnss (Bld) [#/Vol]1.1 10*3/uL1.00-4.8OhiohealthLymphocytes/100 WBC Auto (Bld)Ordered By: Tatiana Douglas on 07-52-7652Pefymbxaoiu/100 WBC (Bld)18.8 %.[facility] Auto (RBC) [Entitic mass]Ordered By: Tatiana Douglas on 04-50-4997IKP (RBC) [Entitic mass]30.3 pg24.7-34.3FSelect Medical TriHealth Rehabilitation HospitalMCHC Auto (RBC) [Mass/Vol] Ordered By: Tatiana Douglas on 95-16-7220OFIL (RBC) [Mass/Vol]33.0 g/dL32.0-35.0 OhiohealthMCV Auto (RBC) [Entitic vol]Ordered By: Tatiana Douglas on 86-81-7951BYQ (RBC) [Entitic vol]91.8 hC71-184AqgfuocdqOhiohealthMonocytes Auto (Bld) [#/Vol]Ordered By: Tatiana Douglas on 07-18-2023 Monocytes (Bld) [#/Vol]0.5 10*3/uL0.0-0.8[facility] Monocytes/100 WBC Auto (Bld)Ordered By: Tatiana Douglas on 29-48-6552Sciemrzdm/100 WBC (Bld)8.2 %.OhiohealthNeutrophils Auto (Bld) [#/Vol] Ordered By: Tatiana Douglas on 09-11-3598Zjmjnnlsocy (Bld) [#/Vol]4.0 10*3/uL1.8-7.7 OhiohealthNeutrophils/100 WBC Auto (Bld)Ordered By: Tatiana Douglas on 69-58-2748Uyedgczabqh/100 WBC (Bld)69.5 %.OhiohealthNo Panel InformationOrdered By: Tatiana Douglas on 95-06-9007Rydzkpqrz GFR (CKD-EPI)> 60.0 mL/MinOhiohealthPharmacy Creatinine Clearance (ChemN/AFSelect Medical TriHealth Rehabilitation HospitalProtein Electrophoresis Note See comment.OhiohealthCompromedica coldwater [facility] on above:Protein electrophoresis scan will follow via computer,mail, or apple peeler operator delivery.Performed at: [employer] [id number] Director: Kristian Castro PhD, Phone: [phone] ImmunofixationSee commentAbnormal.OhiohealthComment on above:Immunofixation shows IgG monoclonal protein with lambdalight chain specificity.Urine Random Prot Electrophor NoteSee comment.OhiohealthComment on above:Protein electrophoresis scan will follow via computer,mail, or apple peeler operator delivery.Performed at: [facility] [id number] [place] [address] [id number] Director: Kristian Castro PhD, Phone: [phone] Nucleated erythrocytes [Presence] in Blood by Automated countOrdered By: Tatiana Douglas on 12-26-5856Rmqnpgtsf RBC Auto Ql (Bld)0.0 /100{WBC}0-0.5FC[facility] adequacy [Presence] in Blood by Light microscopy Ordered By: Tatiana Douglas on 06-32-5978Bmdthtcna LM Ql (Bld)NormalNormalOhiohealthPlatebenewah community hospital mean volume Auto (Bld) [Entitic vol]Ordered By: Tatiana Douglas on 38-11-3985Pbfvuplg mean volume (Bld) [Entitic vol]9.4 fL6.3-10.7 [facility] morphology finding [Identifier] in BloodOrdered By: Tatiana Douglas on 17-33-9842Hlapfqkv morphology finding Nom (Bld)N/A [facility] hospital Auto (Bld) [#/Vol]Ordered By: Tatiana Douglas on 85-66-3109Dnghcmrry (Bld) [#/Vol]205 10*3/pG938-070WvypagkkoOhiohealthPlatelets Large [Presence] in Blood by Light microscopyOrdered By: Tatiana Douglas on 06-14-1773Cdxpgbtyh Large LM Ql (Bld)[facility] HospitalPoikilocytosis [Presence] in Blood by Light microscopyOrdered By: Tatiana Douglas on 61-05-2927Nqlnyxbpvxvqnm LM Ql (Bld)[facility]ville HospitalPolychromasia [Presence] in Blood by Light microscopyOrdered By: Tatiana Douglas on 28-98-6986Fooqwkhhdnptc LM Ql (Bld)[facility]ville HospitalPotassium [Moles/volume] in Serum or PlasmaOrdered By: Tatiana Douglas on 58-58-5632Rzgrukrtl [Moles/Vol]4.2 mmol/L3.5-5.1FSelect Medical TriHealth Rehabilitation HospitalProtein [Mass/volume] in Serum or PlasmaOrdered By: Tatiana Douglas on 60-06-5843Thprlzm [Mass/Vol]7.1 g/dL6.4-8.9[facility] Protein [Mass/Vol]6.9 g/dL6.0-8.5FSelect Medical TriHealth Rehabilitation HospitalProtein [Mass/volume] in UrineOrdered By: Tatiana Douglas on 34-64-6787Fvcynim (U) [Mass/Vol] 6.3 mg/dLNot Estab.[facility] Protein.monoclonal/Protein.total in 24 hour Urine by ElectrophoresisOrdered By: Tatiana Douglas on 89-93-9833Ucgyaex.monoclonal Elph (24H U) [Mass fraction]Not observed %Not ObservedOhiohealthRB Auto (Bld) [#/Vol] Ordered By: Tatiana Douglas on 02-23-2049OTZ (Bld) [#/Vol]4.52 10*6/uL3.60-5.00 OhiohealthRB morphologyOrdered By: Tatiana Douglas on 95-19-8921GBO morphology finding Nom (Bld)N/AFSelect Medical TriHealth Rehabilitation Hospital Red blood cell stomatocyte detectionOrdered By: Tatiana Douglas on 07-18-2023 Stomatocytes LM Ql (Bld)[facility] Southerum globulin measurement (mass/volume)Ordered By: Tatiana Douglas on 73-57-9454Ocigrcif (S) [Mass/Vol]3.0 g/dL2.2-3.9[facility]illicothe Hospitalerum or plasma albumin/globulin mass ratioOrdered By: Tatiana Douglas on 94-30-0605Romxyug/Globulin [Mass ratio]1.6 {ratio}OhiohealthAlbumin/Globulin [Mass ratio]1.3 {ratio}0.7-1.7FDunlap Memorial Hospitalerum or plasma alpha 1 globulin measurement by electrophoresis (mass/volume)Ordered By: Tatiana Douglas on 66-20-8945Yspxh 1 globulin Elph [Mass/Vol]0.2 g/dL0.0-0.4FDunlap Memorial Hospitalerum or plasma alpha 2 globulin measurement by electrophoresis (mass/volume)Ordered By: Tatiana Douglas on 01-11-1542Dtzuk 2 globulin Elph [Mass/Vol] 0.7 g/dL0.4-1.0Ch[facility]icothe Hospitalerum or plasma anion gap determinationOrdered By: Tatiana Douglas on 89-39-5474Hjovi gap [Moles/Vol]6.8 mmol/L 6.0-15.0Ch[facility]icothe Hospitalerum or plasma beta globulin measurement by electrophoresis (mass/volume)Ordered By: Tatiana Douglas on 07-18-2023 Beta globulin Elph [Mass/Vol]0.9 g/dL0.7-1.3FSelect Medical TriHealth Rehabilitation Hospital Serum or plasma gamma globulin measurement by electrophoresis (mass/volume) Ordered By: Tatiana Douglas on 62-09-9638Pogys globulin Elph [Mass/Vol]1.2 g/dL0.4-1.8 [facility]icothe Hospitalodium [Moles/volume] in Serum or PlasmaOrdered By: Tatiana Douglas on 23-16-8733Lywqkw [Moles/Vol]140 mmol/O851-643PottiskgxOhiohealthUrea nitrogen [Mass/volume] in Serum or PlasmaOrdered By: Tatiana Douglas on 26-25-0801Tpkc nitrogen [Mass/Vol]32 mg/dLHigh7-25OhiohealthUrine alpha 1 globulin/total protein by electrophoresis Ordered By: Tatiana Douglas on 75-53-7054Uifsq 1 globulin Elph (U) [Mass fraction]6.3 %.OhiohealthUrine alpha 2 globulin/total protein ratio by electrophoresisOrdered By: Tatiana Misael on 30-66-4290Wnwxh 2 globulin Elph (U) [Mass fraction]14.1 %.OhiohealthUrine beta globulin measurement by electrophoresis (mass/volume)Ordered By: Tatiana Misael on 07-18-2023 Beta globulin Elph (U) [Mass/Vol]41.3 %.OhiohealthUrine protein/creatinine ratioOrdered By: Tatiana Misael on 89-06-5596Awbzkcx/Creatinine (U) [Ratio]82 mg/g{Cre}0-200OhiohealthWBC Auto (Bld) [#/Vol]Ordered By: Tatiana Misael on 28-18-3259QQJ (Bld) [#/Vol]5.8 10*3/uL3.8-11.6 OhiohealthC3 and C4 COMPLEMENTon 84-22-7216Pfjqczuiba C3, Mowbe994 mg/fSKqgbpi96-333Gev [facility] CenterComment on above:Performed By: #### CREA #### [facility] [address] [place] [address] Dr. Yaneth WaltonComplement C4, Serum31 mg/dCPgcrhu52-93Wej [facility] Comment on above:Performed By: #### CREA #### [facility] [address] [place] [address] Dr. Yaneth Hernandez AUTO DIFFon 43-01-0181PHPI #0.0 103/ulNormal0.0-0.1The [facility] Medical CenterComment on above:Performed By: #### CBC #### [facility] [address] [address] [address] Yaneth Thornesophils/100 WBC (Bld)0.6 %Normal0.2-2.0The [facility] Comment on above:Performed By: #### CBC #### [facility] [address] [place] [address] Dr. Yaneth Del Real #0.1 103/ulNormal0.0-0.7The [facility] CenterComment on above: Performed By: #### CBC #### [facility] [address] [address] [address] Yaneth Sanchezosinophils/100 WBC (Bld)2.8 %Normal0.9-7.0The [facility] Comment on above:Performed By: #### CBC #### [facility] [address] [place] [address] Dr. Yaneth Sanchezrythrocyte distribution width (RBC) [Ratio]11.9 %Uxzgva75.0-15.0 The [facility] CenterComment on above:Performed By: #### CBC #### [facility] [address] [place] [address] Dr. Yaneth WaltonHematocrit (Bld) [Volume fraction]40.3 %Uuzmfe59.0-48.0The [facility] CenterComment on above:Performed By: #### CBC #### [facility] [address] [place] [address] Dr. Yaneth WaltonHemoglobin (Bld) [Mass/Vol]13.3 g/cUEblhyk49.0-16.0The [facility] CenterComment on above:Performed By: #### CBC #### [facility] [address] [place] [address] Dr. Yaneth Elliott #0.01 10e3/ulNormal0.00-0.03The [facility] CenterComment on above:Performed By: #### CBC #### [facility] [address] [place] [address] Dr. Yaneth Elliott %0.2 %Normal0.0-0.5The [facility] CenterComment on above: Performed By: #### CBC #### [facility] [address] [place] [address] Dr. Yaneth Carbone #1.0 103/ulCritically low1.2-3.8The [facility] Comment on above:Performed By: #### CBC #### [facility] [address] [place] [address] Dr. Yaneth Curranmphocytes/100 WBC (Bld)20.9 %Xgfnim19.5-60.0The [facility]athy HospitalComment on above:Performed By: #### CBC #### [facility] [address] [address] [address] Yaneth Scott DIFF REQNONormalThe Ashtabula County Medical Centerment on above: Performed By: #### CBC #### [facility] [address] [address] [address] Yaneth Rg (RBC) [Entitic mass]32.0 slZpocos26.7-34.0The [facility] CenterComment on above:Performed By: #### CBC #### [facility] [address] [address] [address] Yaneth Rg (RBC) [Mass/Vol]33.0 g/vRWwgfon39.9-35.2The [facility] Centerment on above:Performed By: #### CBC #### [facility] [address] [place] [address] Dr. Yaneth Rg (RBC) [Entitic vol]97.1 rOGscbki44.0-99.0The [facility] Centerment on above:Performed By: #### CBC #### [facility] [address] [place] [address] Dr. Yaneth Alexandra #0.4 103/ulNormal0.3-0.8The [facility] Centerment on above:Performed By: #### CBC #### [facility] [address] [place] [address] Dr. aYneth Muñozocytes/100 WBC (Bld)8.4 %Normal1.7-12.0The [facility] Comment on above:Performed By: #### CBC #### [facility] [address] [address] [address] Yaneth Hernandez #3.1 103/ulNormal1.4-6.5The [facility] Centerment on above:Performed By: #### CBC #### [facility] [address] [place] [address] Dr. Yaneth Fitchutrophils/100 WBC (Bld)67.1 %Wkehlv98.0-75.0The [facility] on above:Performed By: #### CBC #### [facility] [address] [place] [address] Dr. Yaneth WaltonPlatelet mean volume (Bld) [Entitic vol]10.7 fLNormal9.5-13.5The [facility] on above:Performed By: #### CBC #### [facility] [address] [place] [address] Dr. Yaneth WaltonPLT213 103/xlIhfdbi553-349Bil [facility] on above: Performed By: #### CBC #### [facility] [address] [place] [address] Dr. Yaneth WaltonRBC4.15 106/ulCritically low4.20-5.40The [facility] on above:Performed By: #### CBC #### [facility] [address] [place] [address] Dr. Yaneth WaltonWBC4.7 103/ulNormal4.0-11.0The [facility] CenterCompromed[facility] on above: Performed By: #### CBC #### [facility] [address] [place] [address] Dr. Yaneth WaltonCREATININEon 73-18-7348Zvnkslhbpo [Mass/Vol]0.82 mg/dLNormal 0.55-1.02The [facility] on above:Performed By: #### CREA #### [facility] [address] [place] [address] Dr. Yaneth SanchezGFR-AF MALAYSIAN>60Normal>=60The [facility] on above:Performed By: #### CREA #### [facility] [address] [place] [address] Dr. Yaneth SanchezGFR-NON AF MALAYSIAN>60Normal>=60The [facility] on above:Performed By: #### CREA #### [facility] [address] [place] [address] Dr. Yaneth WaltonSED RATE WESTERGRENon 66-99-9208XJU RATE7 mm/hrNormal<=30[facility] HospitalComment on above:Performed By: #### CREA #### [facility] [address] [address] [address] Yaneth Campbell RANDOM W/MICROSCOPICon 70-54-7340XHUNTJELFDOWKRuungkbqOAJD SEENAkron Children's Hospitalment on above:Performed By: #### CREA #### [facility] [address] [address] [address] Yaneth WaltonBilirubin Ql (U)NegativeNormalNEGATIVEMercy Health West Hospital Comment on above:Performed By: #### CREA #### [facility] [address] [address] [address] Yaneth WaltonCASTNONLilliam SEENNormalNONE SEENMercy Health West HospitalComment on above:Performed By: #### CREA #### [facility] [address] [place] [address] Dr. Yaneth Singh (U)CLEARNormalCLEARMercy Health West HospitalComment on above: Performed By: #### CREA #### [facility] [address] [address] [address] Yaneth Meza (U)LT. YELLOWNormalYFlower HospitalComment on above:Performed By: #### CREA #### [facility] [address] [place] [address] Dr. Yaneth WaltonCrystals LM Nom (Urine sed)NONE SEENNormalNONE SEENMercy Health West HospitalCompromedica coldwater regional hospital on above:Performed By: #### CREA #### [facility] [address] [place] [address] Dr. Wolfe ChangEpithelial cells LM Ql (Urine sed)RARENormalNONE SEEN /RAREMercy Health West HospitalComment on above:Performed By: #### CREA #### [facility] [address] [place] [address] Dr. Yaneth Salcedoose Ql (U)NegativeNormalNEGATIVEMercy Health West HospitalComment on above:Performed By: #### CREA #### [facility] [address] [address] [address] Yaneth WaltonHemoglobin Ql (U)NegativeNormalNEGATIVEMercy Health West Hospital Comment on above:Performed By: #### CREA #### [facility] [address] [address] [address] Yaneth WaltonKetones Ql (U)NegativeNormalNEGATIVEMercy Health West HospitalComment on above:Performed By: #### CREA #### [facility] [address] [place] [address] Dr. Yaneth WaltonLEUKOCYTESLARGEAbnormalNEGATIVEMercy Health West HospitalComment on above:Performed By: #### CREA #### [facility] [address] [place] [address] Dr. Yaneth WaltonMUCOUSNONE SEENNormalNONE SEENMercy Health West HospitalComment on above:Performed By: #### CREA #### [facility] [address] [place] [address] Dr. Yaneth WaltonNitrite Ql (U)NegativeNormalNEGATIVEMercy Health West HospitalComment on above:Performed By: #### CREA #### [facility] [address] [place] [address] Dr. Yaneth WaltonpH (U)6.0 [pH]Normal5-9[facility] HospitalComment on above: Performed By: #### CREA #### [facility] [address] [place] [address] Dr. Yaneth WaltonHzrtqSDZ9-7Qnilye9-5Glt [facility] HospitalComment on above:Performed By: #### CREA #### [facility] [address] [place] [address] Dr. Yaneth WaltonSPEC GRAVITY<=1.310Xyqqidbd7.005-<=1.025[facility] Comment on above:Performed By: #### CREA #### [facility] [address] [place] [address] Dr. Yaneth WaltonUA PROTEINNegativeNormalNEGATIVE/ TRACEThe [facility] Comment on above:Performed By: #### CREA #### [facility] [address] [place], [place] [address] Dr. Yaneth Colindres Qn (U)0.2 {Ruth Ann'U}/dLNormal0.2 - 1.0The [facility] CenterComment on above:Performed By: #### CREA #### [facility] [address] [place], [place] [address] Dr. Yaneth WaltonCodghPPS61-12IdqieskzTKEB SEENThe [facility] CenterComment on above: Performed By: #### CREA #### [facility] [address] [place], [place] [address] Dr. Yaneth WaltonMRI LSPINE WO CONon 69-11-9444ZOM LSPINE WO CONEXAMINATION: MRI LSPINE WO CON HISTORY: Arthritis COMPARISON: No relevant [...] Electronically authenticated by: HEATHER BECKER Date: 2022-02-10 14:50NoOhio Valley HospitalXR [place] 4V or >on 65-17-9688DF [place] 4V or >EXAMINATION: XR [place] 4V or > HISTORY: [...] Electronically authenticated by: HEATHER BECKER Date: 2022-02-03 17:51[facility] HospitalXR LSPINE MIN 4 VIEWSon 61-09-6756QQ LSPINE MIN 4 VIEWS EXAMINATION: XR LSPINE [...] Electronically authenticated by: HEATHER BECKER Date: 2022-02-03 17:54[facility] HospitalC3 and C4 COMPLEMENTon 96-31-3362Jiopmocbdh C3, Hkfgo056 mg/dL Indmht02-836TkkMercy Health West HospitalComment on above:Performed By: #### BERYL #### [facility] [address] [place] [address] Dr. Yaneth WaltonComplement C4, Serum35 mg/rOWocrgd78-12ZvjMercy Health West Hospital Comment on above:Performed By: #### CSUITE #### [facility] [address] [place] [address] Dr. Yaneth Hernandez AUTO DIFFon 38-80-3866UFBG #0.1 103/ulNormal0.0-0.1The [facility] CenterComment on above:Performed By: #### CBC #### [facility] [address] [place] [address] Dr. Yaneth WaltonBasophils/100 WBC (Bld)0.9 %Normal0.2-2.0[facility] Comment on above:Performed By: #### CBC #### [facility] [address] [place] [address] Dr. Yaneth Del Real #0.1 103/ulNormal0.0-0.7The [facility] CenterComment on above: Performed By: #### CBC #### [facility] [address] [place] [address] Dr. Yaneth Sanchezosinophils/100 WBC (Bld)2.2 %Normal0.9-7.0[facility] Comment on above:Performed By: #### CBC #### [facility] [address] [place] [address] Dr. Yaneth Sanchezrythrocyte distribution width (RBC) [Ratio]13.0 %Jgfgqg15.0-15.0 The [facility] CenterComment on above:Performed By: #### CBC #### [facility] [address] [place] [address] Dr. Yaneth WaltonHematocrit (Bld) [Volume fraction]42.0 %Rqvhvn63.0-48.0The [facility] CenterComment on above:Performed By: #### CBC #### [facility] [address] [place] [address] Dr. Yaneth WaltonHemoglobin (Bld) [Mass/Vol]13.4 g/pBNlggsz39.0-16.0The [facility] CenterComment on above:Performed By: #### CBC #### [facility] [address] [place] [address] Dr. Yaneth Elliott #0.01 10e3/ulNormal0.00-0.03The [facility] CenterComment on above:Performed By: #### CBC #### [facility] [address] [place] [address] Dr. Yaneth Elilott %0.2 %Normal0.0-0.5The [facility] Medical CenterComment on above: Performed By: #### CBC #### [facility] [address] [address] [address] Yaneth Carbone #1.0 103/ulCritically low1.2-3.8The [facility] Comment on above:Performed By: #### CBC #### [facility] [address] [place] [address] Dr. Yaneth Duvalhocytes/100 WBC (Bld)18.0 %Critically low20.5-60.0The [facility] Medical CenterComment on above:Performed By: #### CBC #### [facility] [address] [place] [address] Dr. Yaneth ChatmanUAL DIFF REQNONormalThe [facility] CenterComment on above: Performed By: #### CBC #### [facility] [address] [place] [address] Dr. Yaneth Rg (RBC) [Entitic mass]30.5 ukUvcypr54.7-34.0The [facility] CenterComment on above:Performed By: #### CBC #### [facility] [address] [place] [address] Dr. Yaneth Rg (RBC) [Mass/Vol]31.9 g/tGJaxwdb05.9-35.2The [facility] CenterComment on above:Performed By: #### CBC #### [facility] [address] [place] [address] Dr. Yaneth Rg (RBC) [Entitic vol]95.7 eHGifugf41.0-99.0The [facility] CenterComment on above:Performed By: #### CBC #### [facility] [address] [place] [address] Dr. Yaneth Alexandra #0.5 103/ulNormal0.3-0.8The [facility] CenterComment on above:Performed By: #### CBC #### [facility] [address] [place] [address] Dr. Yaneth Muñozocytes/100 WBC (Bld)8.7 %Normal1.7-12.0The [facility] Comment on above:Performed By: #### CBC #### [facility] [address] [place] [address] Dr. Yaneth Hernandez #3.8 103/ulNormal1.4-6.5The [facility] CenterComment on above:Performed By: #### CBC #### [facility] [address] [place] [address] Dr. Yaneth Fitchutrophils/100 WBC (Bld)70.0 %Myzpfv60.0-75.0The [facility] CenterComment on above:Performed By: #### CBC #### [facility] [address] [place] [address] Dr. Yaneth Khanlet mean volume (Bld) [Entitic vol]10.8 fLNormal9.5-13.5The [facility] CenterComment on above:Performed By: #### CBC #### [facility] [address] [place] [address] Dr. Yaneth WaltonPLT213 103/ixAyrsxt015-040Umr [facility] CenterComment on above: Performed By: #### CBC #### [facility] [address] [place] [address] Dr. Yaneth WaltonRBC4.39 106/ulNormal4.20-5.40The [facility] CenterComment on above:Performed By: #### CBC #### [facility] [address] [place] [address] Dr. Yaneth WaltonWBC5.4 103/ulNormal4.0-11.0The [facility] CenterComment on above: Performed By: #### CBC #### [facility] [address] [place] [address] Dr. Yaneth AmadorATININEon 59-94-7727Iyeufohggb [Mass/Vol]0.87 mg/dLNormal 0.55-1.02The [facility] CenterComment on above:Performed By: #### CREA #### [facility] [address] [place] [address] Dr. Wolfe ChangEGFR-AF MALAYSIAN>60Normal>=60The [facility] HospitalComment on above:Performed By: #### CREA #### [facility] [address] [place] [address] Dr. Wolfe ChangEGFR-NON AF MALAYSIAN>60Normal>=60The [facility] CenterComment on above:Performed By: #### CREA #### [facility] [address] [place] [address] Dr. Yaneth Flor RATE WESTERGRENon 93-07-8404BRR RATE10 mm/hrNormal<=30The [facility] CenterComment on above:Performed By: #### SEDR #### [facility] [address] [place] [address] Dr. Yaneth Campbell RANDOM W/MICROSCOPICon 13-36-3535GTJTQKKGAEAC SEENNormalNONE SEENMercy Health West HospitalComment on above:Performed By: #### CREA #### [facility] [address] [place] [address] Dr. Yaneth WaltonBilirubin Ql (U)NegativeNormalNEGATIVEThe [facility] Comment on above:Performed By: #### CREA #### [facility] [address] [place] [address] Dr. Yaneth WaltonCASTSAMIE SEENNormalNONE SEENMercy Health West HospitalComment on above:Performed By: #### CREA #### [facility] [address] [place] [address] Dr. Yaneth Singh (U)CLEARNormalCLEARThe [facility] CenterComment on above: Performed By: #### CREA #### [facility] [address] [place] [address] Dr. Yilan ChangColor (U)LT. YELLOWNormalYELLOWMercy Health West HospitalComment on above:Performed By: #### CREA #### [facility] [address] [address] [address] Yaneth WaltonCrystals LM Nom (Urine sed)NONE SEENNormalNONE SEENMercy Health West HospitalComment on above:Performed By: #### CREA #### [facility] [address] [address] [address] Yaneth Hillthelial cells LM Ql (Urine sed)FEWAbnormalNONE SEEN /RAREMercy Health West HospitalComment on above:Performed By: #### CREA #### [facility] [address] [place] [address] Dr. Yaneth WaltonGlucose Ql (U)NegativeNormalNEGATIVEMercy Health West HospitalComment on above:Performed By: #### CREA #### [facility] [address] [place] [address] Dr. Yaneth WaltonHemoglobin Ql (U)NegativeNormalNEGATIVEBluffton Hospital on above:Performed By: #### CREA #### [facility] [address] [address] [address] Yaneth WaltonKetones Ql (U)NegativeNormalNEGATIVEMercy Health West HospitalComment on above:Performed By: #### CREA #### [facility] [address] [place] [address] Dr. Yaneth WaltonLEUKOCYTESTRACEAbnormalNEGATIVEMercy Health West HospitalComment on above:Performed By: #### CREA #### [facility] [address] [address] [address] Yaneth WaltonMUCOUSNONE SEENNormalNONE SEENMercy Health West HospitalComment on above:Performed By: #### CREA #### [facility] [address] [place] [address] Dr. Yaneth WaltonNitrite Ql (U)NegativeNormalNEGATIVEMercy Health West HospitalComment on above:Performed By: #### CREA #### [facility] [address] [place] [address] Dr. Yaneth WaltonpH (U)6.0 [pH]Normal5-9The [facility] CenterComment on above: Performed By: #### CREA #### [facility] [address] [place] [address] Dr. Yaneth WaltonRBCNONE SEENAbnormal0-2The [facility] CenterComment on above: Performed By: #### CREA #### [facility] [address] [place] [address] Dr. Yaneth WaltonSPEC GRAVITY1.730Txmoew1.005-<=1.025The [facility] CenterComment on above:Performed By: #### CREA #### [facility] [address] [place] [address] Dr. Yaneth Campbell PROTEINNegativeNormalNEGATIVE/ TRACEThe [facility] Comment on above:Performed By: #### CREA #### [facility] [address] [place] [address] Dr. Yaneth Antoniobilinogen Qn (U)0.2 {Ruth Ann'U}/dLNormal0.2 - 1.0The [facility] CenterComment on above:Performed By: #### CREA #### [facility] [address] [place] [address] Dr. Yaneth WaltonWBC0-2AbnormalNONE SEENThe [facility] CenterComment on above: Performed By: #### CREA #### [facility] [address] [place] [address] Dr. Yaneth Day INTACTon 04-92-0256JIC, Oqcjup71 pg/hRZkjcpe06-73Ddp [facility] CenterComment on above:Performed By: #### BETA2M #### [facility] [address] [place] [address] Dr. Yaneth Hager T3on 76-92-4683SZDF T32.44 pg/mlLNormal2.18-3.98The [facility] CenterComment on above:Performed By: #### BETA2M #### [facility] [address] [place] [address] Dr. Yaneth Hager T4on 08-22-0091Ubmw T4 [Mass/Vol]1.11 ng/dLNormal0.76-1.46 [facility] HospitalComment on above:Performed By: #### BETA2M #### [facility] [address] [address] [address] Yaneth MikeID PROFILEon 04-51-2107OXEN-HDL RATIO NORMSEE BELOWCleveland Clinic Avon HospitalComment on above:Result Comment: 3.3 - 4.4 LOW RISK 4.4 - 7.1 AVERAGE RISK 7.1 - 11.0 MODERATE RISK >11.0 HIGH RISKPerformed By: #### CREA #### [facility] [address] [place] [address] Dr. Yaneth Langesterol [Mass/Vol]180 mg/dLNormal<=200The [facility] Comment on above:Performed By: #### CREA #### [facility] [address] [address] [address] Yaneth Langesterol in HDL [Mass/Vol]76 mg/dLCritically plvk21-01GytMercy Health West HospitalComment on above:Performed By: #### CREA #### [facility] [address] [place] [address] Dr. Yaneth Langestermelissa in LDL [Mass/Vol]92.6 mg/dLCleveland Clinic Avon HospitalComment on above:Performed By: #### CREA #### [facility] [address] [address] [address] Yaneth Bryan.total/Cholesterol in HDL [Mass ratio]2.4 {ratio} NormalMercy Health West HospitalComment on above:Performed By: #### CREA #### [facility] [address] [place] [address] Dr. Yaneth Ellington NORMAL> or = 60 mg/dl - LOW CARDIOVASCULAR RISK <40 mg/dl - HIGH CARDIOVASCULAR RISKCleveland Clinic Avon HospitalComment on above:Performed By: #### CREA #### [facility] [address] [place] [address] Dr. Yaneth WaltonLDL CALC NORMALSEE BELOWNoOhio Valley HospitalComment on above:Result Comment: <100 mg/dl OPTIMAL 100 - 129 mg/dl NEAR OR ABOVE OPTIMAL 130 - 159 mg/dl BORDERLINE HIGH 160 - 189 mg/dl HIGH >190 mg/dl VERY HIGH Performed By: #### CREA #### [facility] [address] [address] [address] Yaneth WaltonTriglyceride [Mass/Vol]57 mg/dLNormal<=150[facility] Comment on above:Performed By: #### CREA #### [facility] [address] [address] [address] Yaneth WaltonVLDL CALC11.4 mg/dLNoOhio Valley HospitalComment on above: Performed By: #### CREA #### [facility] [address] [address] [address] Yaneth WaltonMG MAMM SCREEN 3D OH CADon 81-32-4819DG MAMM SCREEN 3D OH CAD Patient: SINA PEREZ Exam Date: 08/19/2021 : 1950 Gender:F Ordering : DR GER KENNEDY . Admission #: [id number] Family : Order #: [id number] CLICK HERE TO VIEW EXAM RADIOLOGY REPORT [...] colon cancer at age 71. LOCATION: [facility] BREAST COMPOSITION: Heterogeneously dense,which may [...] LUMP SHOULD BE BIOPSIED. Dictated by: Noemi Chavarria M.D. on 08/19/2021 at 12:03 Approved by: Noemi Chavarria M.D. on 08/19/2021 at 12:07Cleveland Clinic Avon HospitalTSHon 17-49-9957KUC1.181 uIU/mLCritically low0.358-3.740[facility] West HospitalComment on above:Performed By: #### BETA2M #### [facility] [address] [place] [address] Dr. Yaneth Walter D 25 OHon 04-80-1944EGZ D 25-OH51.8 ng/mLNormalThe [facility] Medical CenterComment on above:Performed By: #### BETA2M #### [facility] [address] [place] [address] Dr. Yaneth Anderson RANGESSEE BELOWCleveland Clinic Avon HospitalComment on above: Result Comment: <20 ng/mL Vit D deficient 20 - <30 ng/mL Vit D insufficient 30 - 100 ng/mL Vit D sufficient >100 ng/mL Potential ToxicityPerformed By: #### BETA2M #### [facility] [address] [place] [address] Dr. Yaneth WaltonUNIV[facility] Surgical Pathology Departmenton 34-28-5284XZE Surgical Pathology DepartmentName SINA PEREZ Pathologist: TONYA CARRERA DMD Date of Procedure: 08/04/2021 Date Received: 08/08/2021 Date Reported 08/12/2021 Submitting Physician: LIZETH LAYTON DDS Location: [facility] Other External # FINAL DIAGNOSIS A. ATTACHED GINGIVA OF TEETH #12-13, EXCISION: -- MILD EPITHELIAL DYSPLASIA (MULTIPLE LEVELS EXAMINED) ICD-10/CPT: K13.21/86495 Electronically Signed Out By TONYA CARRERA DMD/ALFONSO By the signature on this report, the individual or group listed as making the Final Interpretation/Diagnosis certifies that they have reviewed this case. Diagnostic interpretation performed at [address] [facility] [address] Microscopic Description: The sections show a fragment [...] and entirely submitted in one cassette. [facility]/08/08/2021 [facility] Department of Pathology [address] [place], [place] [id number] District HospitalComment on above:Performed By: #### [facility] #### [facility] Surgical Pathology Department [address] [place] [address] 05957HCFSLUBAEECPHZ (MG), SERUMon 43-57-9046CUITZKDZCPVTCH RESULT CommentAbnormKettering Health Washington TownshipComment on above:Result Comment: Immunofixation shows IgG monoclonal protein with lambda light chain specificity.Performed By: #### CREA #### [facility] [address] [place] [address] Dr. Yaneth WaltonImmunoglobulin A, Qn, Zagzy524 mg/iOKygkty01-303Tnp [facility] CenterComment on above:Performed By: #### CREA #### [facility] [address] [place] [address] Dr. Yaneth WaltonImmunoglobulin G, Qn, Tlzlu4687 mg/oSMjiedk557-1764Ezo [facility] CenterComment on above:Performed By: #### CREA #### [facility] [address] [place] [address] Dr. Yaneth WaltonImmunoglobulin M, Qn, Serum42 mg/fKTdzghe66-216Fup [facility] CenterComment on above:Performed By: #### CREA #### [facility] [address] [place] [address] Dr. Yaneth WaltonBETA-2 MICROGLOBINon 29-14-1945Xtbd-2 Microglobulin, Serum2.2 mg/LNormal0.6-2.4The [facility] Medical CenterComment on above:Result Comment: Siemens Perpetu 2000 Immunochemiluminometric assay (ICMA) . Values obtained with different assay methods or kits cannot be used interchangeably. Results cannot be interpreted as absolute evidence of the presence or absence of malignant disease.Performed By: #### BETA2M #### [facility] [address] [place] [address] Dr. Yaneth Hager LIGHT CHAINS PLUS RATIOon 20-53-7583Wudq Keefton Lt Chains,S 34.7 mg/LCritically high3.3-19.4The [facility] CenterComment on above:Performed By: #### RAFLIT #### [facility] [address] [place] [address] Dr. Yaneth Hager Lambda Lt Chains,S50.1 mg/LCritically high5.7-26.3The [facility] CenterComment on above:Performed By: #### RAFLIT #### [facility] [address] [place] [address] Dr. Yaneth WaltonKappa/Lambda Ratio, S0.60Xqqutt0.26-1.65The [facility] Comment on above:Performed By: #### RAFLIT #### [facility] [address] [place] [address] Dr. Yaneth WaltonIMMUNOGLOBULINS IGA/IGM/IGG QUANTITATIVEon 07-08-2021 Immunoglobulin A, Qn, Viwme985 mg/nMVjxvun26-625Neh [facility] CenterComment on above:Performed By: #### IMMUNGL #### [facility] [address] [place] [address] Dr. Yaneth WaltonImmunoglobulin G, Qn, Ydcjc4472 mg/vZLfnpvg429-0625Src [facility] CenterComment on above:Performed By: #### IMMUNGL #### [facility] [address] [place] [address] Dr. Yaneth WaltonImmunoglobulin M, Qn, Serum44 mg/cAWuehbv24-352Bjt [facility] CenterComment on above:Performed By: #### IMMUNGL #### [facility] [address] [place] [address] Dr. Yaneth LewisC AUTO DIFFon 24-16-9272UIVP #0.0 103/ulNormal0.0-0.1The [facility] Medical CenterComment on above:Performed By: #### CBC #### [facility] [address] [place] [address] Dr. Yaneth WaltonBasophils/100 WBC (Bld)0.7 %Normal0.2-2.0The [facility] Comment on above:Performed By: #### CBC #### [facility] [address] [place] [address] Dr. Yaneth Del Real #0.2 103/ulNormal0.0-0.7The [facility] Medical CenterComment on above: Performed By: #### CBC #### [facility] [address] [place] [address] Dr. Yaneth Sanchezosinophils/100 WBC (Bld)2.9 %Normal0.9-7.0The [facility] Comment on above:Performed By: #### CBC #### [facility] [address] [place] [address] Dr. Yaneth Sanchezrythrocyte distribution width (RBC) [Ratio]12.9 %Yixomw73.0-15.0 The [facility] Medical CenterComment on above:Performed By: #### CBC #### [facility] [address] [place] [address] Dr. Yaneth WaltonHematocrit (Bld) [Volume fraction]43.1 %Cljrco76.0-48.0The [facility] CenterComment on above:Performed By: #### CBC #### [facility] [address] [place] [address] Dr. Yaneth WaltonHemoglobin (Bld) [Mass/Vol]13.8 g/uFXbuxfd28.0-16.0The [facility] Medical CenterComment on above:Performed By: #### CBC #### [facility] [address] [place] [address] Dr. Yaneth Elliott #0.02 10e3/ulNormal0.00-0.03The [facility] Medical CenterComment on above:Performed By: #### CBC #### [facility] [address] [place] [address] Dr. Yaneth Elliott %0.4 %Normal0.0-0.5The [facility] Medical CenterComment on above: Performed By: #### CBC #### [facility] [address] [place] [address] Dr. Yaneth Carbone #1.3 103/ulNormal1.2-3.8The [facility] Medical CenterComment on above:Performed By: #### CBC #### [facility] [address] [place] [address] Dr. Yaneth Duvalhocytes/100 WBC (Bld)22.9 %Apyjlf37.5-60.0The [facility] Medical CenterComment on above:Performed By: #### CBC #### [facility] [address] [place] [address] Dr. Yaneth ChatmanUAL DIFF REQNONormalThe [facility] CenterComment on above: Performed By: #### CBC #### [facility] [address] [place] [address] Dr. Yaneth Rg (RBC) [Entitic mass]30.3 ceEsqtqe37.7-34.0The [facility] CenterComment on above:Performed By: #### CBC #### [facility] [address] [place] [address] Dr. Yaneth Rg (RBC) [Mass/Vol]32.0 g/bJMisfvg52.9-35.2The [facility] HospitalComment on above:Performed By: #### CBC #### [facility] [address] [place] [address] Dr. Yaneth Hernandez (RBC) [Entitic vol]94.5 nUOtuggx35.0-99.0The [facility] CenterComment on above:Performed By: #### CBC #### [facility] [address] [place] [address] Dr. Yaneth Alexandra #0.5 103/ulNormal0.3-0.8The [facility] CenterComment on above:Performed By: #### CBC #### [facility] [address] [place] [address] Dr. Yaneth Muñozocytes/100 WBC (Bld)8.7 %Normal1.7-12.0The [facility] Comment on above:Performed By: #### CBC #### [facility] [address] [place] [address] Dr. Yaneth Hernandez #3.5 103/ulNormal1.4-6.5The [facility] Medical CenterComment on above:Performed By: #### CBC #### [facility] [address] [place] [address] Dr. Yaneth Fitchutrophils/100 WBC (Bld)64.4 %Zijaum61.0-75.0The [facility] CenterComment on above:Performed By: #### CBC #### [facility] [address] [place] [address] Dr. Yaneth Carver mean volume (Bld) [Entitic vol]11.0 fLNormal9.5-13.5The [facility] Medical CenterComment on above:Performed By: #### CBC #### [facility] [address] [place] [address] Dr. Yaneth WaltonPLT206 103/bmJiyfkp070-569Bhj [facility] CenterComment on above: Performed By: #### CBC #### [facility] [address] [place] [address] Dr. Yaneth WaltonRBC4.56 106/ulNormal4.20-5.40The [facility] CenterComment on above:Performed By: #### CBC #### [facility] [address] [place] [address] Dr. Yaneth WaltonWBC5.5 103/ulNormal4.0-11.0The [facility] CenterComment on above: Performed By: #### CBC #### [facility] [address] [place] [address] Dr. Yaneth WaltonPRODio 14(COMP METB)on 46-87-4884Wxttofb [Mass/Vol]3.7 g/dLNormal 3.4-5.0The [facility] CenterComment on above:Performed By: #### BETA2M #### [facility] [address] [place] [address] Dr. Yaneth WaltonAlbumin/Globulin [Mass ratio]1.0 {ratio}NormalThe [facility] CenterComment on above:Performed By: #### BETA2M #### [facility] [address] [place] [address] Dr. Yaneth OrtegaP [Catalytic activity/Vol]103 U/DLoedoz16-139Kpg [facility] CenterComment on above:Performed By: #### BETA2M #### [facility] [address] [place] [address] Dr. Yaneth Johnson [Catalytic activity/Vol]28 U/ZRenrrr47-57Lss [facility] CenterComment on above:Performed By: #### BETA2M #### [facility] [address] [place] [address] Dr. Yaneth Hernandez gap [Moles/Vol]12.0 mmol/LNormalThe [facility] Comment on above:Performed By: #### BETA2M #### [facility] [address] [place] [address] Dr. Yaneth Aragon [Catalytic activity/Vol]26 U/AQlossx96-88Jwc [facility] CenterComment on above:Performed By: #### BETA2M #### [facility] [address] [place] [address] Dr. Yaneth WaltonBilirubin [Mass/Vol]0.7 mg/dLNormal0.2-1.0The [facility] Comment on above:Performed By: #### BETA2M #### [facility] [address] [address] [address] Yaneth WaltonCalcium [Mass/Vol]8.6 mg/dLNormal8.5-10.1The [facility] Comment on above:Performed By: #### BETA2M #### [facility] [address] [address] [address] Yaneth WaltonChloride [Moles/Vol]103 mmol/AJrowtg65-770Ngr [facility] Comment on above:Performed By: #### BETA2M #### [facility] [address] [address] [address] Yaneth WaltonCO2 [Moles/Vol]28.7 mmol/OBjautq46.0-32.0The [facility] Comment on above:Performed By: #### BETA2M #### [facility] [address] [place] [address] Dr. Yaneth WaltonCreatinine [Mass/Vol]0.84 mg/dLNormal0.55-1.02The [facility] CenterComment on above:Performed By: #### BETA2M #### [facility] [address] [address] [address] Yaneth SanchezGFR-AF MALAYSIAN>60Normal>=60The [facility] Medical CenterComment on above:Performed By: #### BETA2M #### [facility] [address] [place] [address] Dr. Yaneth SanchezGFR-NON AF MALAYSIAN>60Normal>=60The [facility] CenterComment on above:Performed By: #### BETA2M #### [facility] [address] [place] [address] Dr. Yaneth WaltonGlobulin (S) [Mass/Vol]3.7 g/dLNormalThe [facility] CenterComment on above:Performed By: #### BETA2M #### [facility] [address] [place] [address] Dr. Yaneth WaltonGlucose [Mass/Vol]90 mg/tUCnaclj88-175Zlv [facility] Comment on above:Performed By: #### BETA2M #### [facility] [address] [address] [address] Yaneth WaltonPotassium [Moles/Vol]3.7 mmol/LNormal3.5-5.1The [facility] Comment on above:Performed By: #### BETA2M #### [facility] [address] [address] [address] Yaneth WaltonProtein [Mass/Vol]7.4 g/dLNormal6.1-8.2The [facility] Comment on above:Performed By: #### BETA2M #### [facility] [address] [address] [address] Yaneth WaltonSodium [Moles/Vol]140 mmol/ESmlwau680-219Ayh [facility] Comment on above:Performed By: #### BETA2M #### [facility] [address] [address] [address] Yaneth WaltonUrea nitrogen [Mass/Vol]22.0 mg/dLCritically high7.0-18.0The [facility] CenterComment on above:Performed By: #### BETA2M #### [facility] [address] [address] [address] Yaneth Gonzalez nitrogen/Creatinine [Mass ratio]26.2 mg/mgNormalThe [facility] CenterComment on above:Performed By: #### BETA2M #### [facility] [address] [address] [address] Yaneth Walton Vital Signs Date TimeVital SignValuePerforming QmckyjnumFuldgtsx43-05-9297 14:24-0400Body qbwvwa136.86 cmSjacqui Hair MD Work Phone: [facility]06-26-2025 14:24-0400 Body mass index (BMI) [Ratio]32.5 kg/r2NrsjojJean Hair MD Work Phone: [facility]06-26-2025 14:24-0400 Body kncnlwiuwcz57.6 [degF]Jean Hair MD Work Phone: [facility]06-26-2025 14:24-0400 Body ccyqgu97.02 kgJean Hair MD Work Phone: [phone]06-26-2025 14:24-0400 Diastolic blood fovfuyzz84 mm[Hg]Jean Hair MD Work Phone: [phone])[address]06-26-2025 14:24-0400 Heart rate72 /Cheryl Hair MD Work Phone: [phone])[address]06-26-2025 14:24-0400 Respiratory rate16 /Cheryl Hair MD Work Phone: [phone])[address]06-26-2025 14:24-0400 SaO2% (BldA) [Mass fraction]96 %Jean Hair MD Work Phone: [phone])[address]06-26-2025 14:24-0400 Systolic blood qdllujxp68 mm[Hg]Jean Hair MD Work Phone: [phone])[address]05-29-2025 09:51-0400 Body jbljli161.9 Amber Pierce MD Work Phone: [phone] [place], [place] [address]05-29-2025 09:51-0400Body mass index (BMI) [Ratio]33.12 kg/o3ZxvhmKamala Pierce MD Work Phone: [phone])[address]05-29-2025 09:51-0400Body zjowqz58.39 kgKamala Pierce MD Work Phone: [phone])[address]05-29-2025 09:51-0400Heart rate73 /min Kamala Pierce MD Work Phone: [phone] [place], [place] [address]Ifsgmkmkpe73-37-5682 09:51-0400Respiratory rate16 /minKamala Pierce MD Work Phone: [phone] [place], [place] [address]Aofrcjoqdu97-29-1914 09:51-7893SfC5% (BldA) [Mass fraction]94 %Kamala Pierce MD Work Phone: [phone]03-05-2025 11:00-0500Body mass index (BMI) [Ratio]34.07 kg/g9OxuyxFelicia Bauer VICE PRESIDENT QUALITY IMPROVEMENT Work Phone: [facility] HospitalOyuqkahqpe05-99-0768 11:00-0500Body qgudls59.94 kgSaheidi Bauer VICE PRESIDENT QUALITY IMPROVEMENT Work Phone: [facility] HospitalUfseuhggcn72-27-8531 11:00-0500Diastolic blood dyimcuhv68 mm[Hg]Felicia Bauer VICE PRESIDENT QUALITY IMPROVEMENT Work Phone: [facility] HospitalGmpnesokgc27-25-0142 11:00-0500Heart rate75 /min Felicia Bauer VICE PRESIDENT QUALITY IMPROVEMENT Work Phone: [address] [address]Wbkomutmev27-78-9458 11:00-2292AlN1% (BldA) [Mass fraction]97 %Felicia Bauer VICE PRESIDENT QUALITY IMPROVEMENT Work Phone: [facility] HospitalRlghjimynp04-22-4768 11:00-0500Systolic blood ccikrbyv374 mm[Hg]Felicia Bauer VICE PRESIDENT QUALITY IMPROVEMENT Work Phone: [facility] HospitalLsluyxcoaz54-52-0307 13:53-0400Body pdmysh698.86 cmMD Jeanjamar Hair Work Phone: [facility]06-26-2024 13:53-0400 Body mass index (BMI) [Ratio]31.7 kg/m2 Jean Hair Work Phone: [facility]06-26-2024 13:53-0400 Body [degF]MD Jean Hair Work Phone: [facility]06-26-2024 13:53-0400 Body .21 kg Jean Hair Work Phone: [facility]06-26-2024 13:53-0400 Diastolic blood ccpgzfyd23 mm[Hg]MD Jean Hair Work Phone: [facility]06-26-2024 13:53-0400 Heart rate71 /minMD Jean Hair Work Phone: [phone] 13:53-0400 Respiratory rate16 /minMD Jean Hair Work Phone: [phone] [place], [place] [address]106-26-2024 13:53-0400 SaO2% (BldA) [Mass fraction]97 %MD Jean Hair Work Phone: [phone])[address]06-26-2024 13:53-0400 Systolic blood mtdulzer714 mm[Hg]MD Jean Hair Work Phone: [phone])[address]06-05-2024 10:37-0400 Diastolic blood mm[Hg]MD Jean Hair Work Phone: [phone])[address]06-05-2024 10:37-0400 Heart rate61 /minMD Jean Hair Work Phone: [phone])[address]06-05-2024 10:37-0400 Respiratory rate16 /minMD Jean Hair Work Phone: [phone])93472 [address]06-05-2024 10:37-0400 SaO2% (BldA) [Mass fraction]99 %MD Jean Hair Work Phone: [phone])[address]472 [address]06-05-2024 10:37-0400 Systolic blood nucrnaha756 mm[Hg]MD Jean Hair Work Phone: [phone]06-05-2024 09:10-0400 Body nmyxzr394.78 cmMD Jean Hair Work Phone: [phone])[address]06-05-2024 09:10-0400 Body esmclz95.3 kgMD Jean Hair Work Phone: 1(655)[address]05-22-2024 09:57-0400 Body gzpjxe015.78 cmMD Jean Hair Work Phone: [phone])[address]05-22-2024 09:57-0400 Body mass index (BMI) [Ratio]34.4 kg/m2MD Jean Hair Work Phone: [phone])[address]05-22-2024 09:57-0400 Body klxnkoqzaqt99.9 [degF]MD Jean Hair Work Phone: [facility]05-22-2024 09:57-0400 Body kddowg29.12 kgMD Jean Hair Work Phone: [facility]05-22-2024 09:57-0400 Diastolic blood osphfgad71 mm[Hg]MD Jean Hair Work Phone: [facility]05-22-2024 09:57-0400 Heart rate69 /minMD Jean Hair Work Phone: [phone] [place], [place] [address]105-22-2024 09:57-0400 Respiratory rate16 /minMD Jean Hair Work Phone: [phone]05-22-2024 09:57-0400 SaO2% (BldA) [Mass fraction]98 %MD Jean Hair Work Phone: [address] [place], [place] 1960205-22-2024 09:57-0400 Systolic blood yaoouuiq357 mm[Hg]MD Jean Hair Work Phone: [phone] [place] [address] Encounters Encounter DateEncounter TypeCare ProviderFacilityStart: 43-28-2362otyepqsiziLjyn L SchwabFacility:[facility] BellevueStart: 30-22-7560jgfzlohdvtClhd L Stacey Facility[facility] tart: 12-29-2024 End: 26-78-0538khxhbjgtjlQrwhyi E. RossFacility:[facility] ueStart: 12-25-2024 ambulatorySamuel EMahogany RossFacility:[facility] BellevueStart: 12-22-2024 End: 35-93-6542dgfwetifmsEewd L SchwabFacility:[facility] BellevueStart: 09-29-2024 End: 99-33-5101cfjhyshzzcBzrb L SchwabFacility:[facility] BellevueStart: 08-28-2024 Shelly Tracy MD-[facility] Work Phone: Start: 08-28-2024 End: 43-75-6194szpqtzydzeAeoikm E Ross MD Work Phone: [facility] Work Phone: Start: 08-28-2024 End: 72-08-5020Nltazpc encounter Morro Tracy MD-[facility] Work Phone: Start: 08-07-2024 End: 62-52-8428xteyhjelsjLiph L SchwabFacility:[facility] BellevueStart: 07-31-2024 End: 66-73-4626Levyxaladi Pierce MD Work Phone: [facility] ENDOCRINOLOGYStart: 07-31-2024 End: 12-88-6545Yszxkaladi Pierce MD Work Phone: [facility] ENDOCRINOLOGYStart: 07-31-2024 End: 24-16-5450Rkfiyk outpatient new 60 minutesKamala Pierce MD Work Phone: [facility] ENDOCRINOLOGYComment on above:History of parathyroid surgery (Primary Dx); H/O partial thyroidectomy (CMS/HCC); Vitamin D deficiencyStart: 07-31-2024 End: 59-81-7677losvhrrpmcYXJSL F SABBAGHNot AvailableStart: 07-21-2024 End: 92-56-9192sqottelvuaRbrvtd Redd RossFacility:[facility] BellevueStart: 07-01-2024 ambulatoryJodi L SchwabFacility:CD:[id number]: 06-30-2024 End: 20-47-5296kovkiyknwuDcsvtw EMahogany RossFacility:[facility] BellevueStart: 05-07-2024 End: 32-48-2476Iomuep flowsAbbey Bauer VICE PRESIDENT QUALITY IMPROVEMENT Work Phone: [facility] [place]Start: 05-07-2024 End: 75-57-8975Yekufa flowsheetSprasanth Bauer VICE PRESIDENT QUALITY IMPROVEMENT Work Phone: [facility] [place]Start: 05-07-2024 End: 14-53-3051Pfqpjt outpatient visit 15 minutesSaheidi Bauer VICE PRESIDENT QUALITY IMPROVEMENT Work Phone: ana BELLEVUEComment on above:Lumbar radiculopathy (Primary Dx); Degeneration of intervertebral disc of lumbar region, unspecified whether pain present; Gait instability; Sjogren's syndrome, with unspecified organ involvement (HCC) (CMS/HCC); Numbness of left handStart: 05-07-2024 End: 27-23-9499zxhtiyggskFKDJG CARROLLNot AvailableStart: 02-06-2024 End: 95-84-2975Cntvyqlv Result EncounterTatiana Douglas MD Work Phone: [facility] External Department UnsolicitedStart: 02-06-2024 End: 42-44-0024Rxjekmwq Result EncounterTatiana Douglas MD Work Phone: [facility] External Department UnsolicitedStart: 12-31-2023 End: 25-32-3734zmcrgkqgdnNxhhob E. RossFacility:FTMCStart: 12-31-2023 End: 00-73-7458Twt Drop Larissa Hair [facility] Start: 09-19-2023 End: 03-72-6839mtzrxtryzwNLNJM CARROLLNot AvailableStart: 08-29-2023 End: 68-81-6830hozevuitwtPO Samuel E Ross Work Phone: [facility] Work Phone: Start: 08-29-2023 End: 21-77-1593Fktwdic encounter procedureMD Jean Hair Work Phone: [facility] Amb[facility] Work Phone: Start: 89-68-4651Eznbjcbscv RecurringMD Jean Hair Work Phone: [facility] Acute Work Phone: Start: 08-08-2023 End: 17-24-5560Gdglwvwfv to same day surgery centerMD Jean Hair Work Phone: [facility] [place] Work Phone: Start: 08-08-2023 End: 88-68-3371wyleqsguvkKU Samuel E Ross Work Phone: [facility] Work Phone: Start: 07-25-2023 End: 79-51-4847zwnalyqunsHQ Samuel E Ross Work Phone: [facility] Work Phone: Start: 07-25-2023 End: 37-02-0004Umdnhwd encounter procedureMD Jean Hair Work Phone: [facility] Amb[facility] Work Phone: Start: 52-97-6888Mifmytxmlo RecurringMD Jean Hair Work Phone: [facility] Work Phone: Start: 01-29-2023 End: 68-13-3567grbwqezsygWvyjgju Vytautas Giedraitis MDFacility:[facility] Start: 12-25-2022 End: 82-33-9960fpmhonpjkhNyejmeh Vytautas Giedraitis MDFacility:[facility] [place] Start: 11-27-2022 End: 78-59-9874qnchhbbjntRtebtxh Vytautas Giedraitis MDFacility:[facility] [place] Start: 11-13-2022 End: 71-33-4839zyvvbksxutIuwrngf Vytautas Giedraitis MDFacility:[facility] [place] Start: 06-21-2022 End: 16-91-3765mfdmkmepqyRT KIM E KNIGHT .Facility:F5Surzc: 04-21-2022 End: 98-95-8686inptewrtrePI KIM E KNIGHT .Facility:G0Kqucv: 02-10-2022 End: 85-19-1552aocfehexseBQ KIM E KNIGHT .Facility:N5Ljnrr: 02-03-2022 End: 85-18-4194gcpnxdxctoUH KIM E KNIGHT .Facility:J8Fjaju: 12-21-2021 End: 05-49-6020ogyzpaokkgOP SAMANTHA MORALESPRESTONFacility:E8Elwec: 08-19-2021 End: 68-32-8777qvsoqavzriZZ GER KENNEDY .Facility:F6Ggacd: 07-07-2021 End: 63-15-2616ezawmmxwlfIZ TATIANA Tracy MISAELFacility:H1 Procedures DateProcedureProcedure DetailPerforming ClinicianStart: 55-83-3334Iuzupsqz blood count with white cell differential, automatedTatiana Douglas MD Work Phone: Start: 54-40-8526Biqzwnwtrymen metabolic panelTatiana Douglas MD Work Phone: Start: 09-80-6435PWDQJJP ELECTRO, RANDOM URINETatiana Douglas MD Work Phone: Start: 55-69-0262Iimky immunofixationSjacqui Hair MD Work Phone: Comment on above:Immunofixation shows IgG monoclonal protein with lambdalight chain specificity.Start: 36-34-8675Eegbiblqrg examination, osseous survey, completeMD Jean Hair Work Phone: Start: 30-72-9335Prwxqf measurementSjacqui Hair MD Work Phone: Comment on above:This test was developed and its performance characteristicsdetermined by [employer]. It has not been cleared orapproved by the Food and Drug Administration. Detection Limit = 5Performed at: [facility] [address] [place], [place] [id number] Director: Camila Mckeon MD, Phone: [phone]: 68-69-7295Yody energy X-ray absorptiometryMD Jean Hair Work Phone: Start: 53-42-8645Jlcy marrow samplingSakeon Hair Start: 32-62-1789Ibdz marrow samplingMD Jean Hair Work Phone: Biopsy of breastSamuel Alejandro Comment on above:G6Nikvun of thyroidSamuel Alejandro Comment on above:X2Bone graftSjacqui Hair Comment on above:rt hip to right wristBone marrow samplingSakeon Hair Comment on above:2016Cataract (disorder)Jean Hair Commvdt on above:left eyeColonoscopyJean Hair Comment on above:2019Destructive procedureSjacqui Hair H/O: surgeryHistory of parathyroid surgeryKamala Pierce MD Work Phone: Internal fixation of fractureSjacqui Hair Commeky on above:right wristMalignant neoplasm of skin (disorder)Jean Hair Comment on above:basal cell excised left eyelidMohs surgerySakeon Hair Comment on above:facial/ left cheek, September 2022, Dr. PalumboParathyroidectomyJean Hair Comment on above:2018Repair of tendonSjacqui Hair Comqukx on above:right thumb then removal of plate and screws right wristTotal abdominal hysterectomy with bilateral salpingo-oophorectomyJean Hair Plan of Treatment DateCare ActivityDetailAuthorStart: 07-31-2024 End: 966628-dcvstmmrfoxtmf D3 [Mass/volume] in Serum or PlasmaVitamin D 25 hydroxy Total Lab Routine History of parathyroid surgery Vitamin D deficiency Expected: 07/31/2024 (Approximate), Expires: 07/31/2025NOMS HealthcareComment on above:Expected: 07/31/2024 (Approximate), Expires: 07/31/2025Start: 07-31-2024 End: 07-44-9406Kwmmitwkug.intact [Mass/volume] in Serum or PlasmaPTH, intact Lab Routine History of parathyroid surgery Expected: 07/31/2024 (Approximate), Expires:07/31/2025NOMS HealthcareComment on above:Expected: 07/31/2024 (Approximate), Expires: 07/31/2025Start: 07-31-2024 End: 69-52-1795Xdjru function panelRenal function panel Lab Routine History of parathyroid surgery Expected: 07/31/2024 (Approximate),Expires: 07/31/2025[facility] HealthcareComment on above:Expected: 07/31/2024 (Approximate), Expires: 07/31/2025Start: 07-31-2024 End: 94-50-3342Cyyukfdxrvf [Units/volume] in Serum or PlasmaTSH Lab Routine H/O partial thyroidectomy ([facility]) Expected: 07/31/2024 (Approximate), Expires: [facility] HealthcareComment on above:Expected: 07/31/2024 (Approximate), Expires: 07/31/2025Start: 07-31-2024 End: 50-16-2981Yjiyfptub (T4) free [Mass/volume] in Serum or PlasmaT4, free Lab Routine H/O partial thyroidectomy ([facility]) Expected: 07/31/2024 (Approximate), Expires: 07/31/2025[facility] HealthcareComment on above:Expected: 07/31/2024 (Approximate), Expires: 07/31/2025Start: 07-31-2024 End: 39-48-0999Vpjpyupwhrxkvlow (T3) Free [Mass/volume] in Serum or PlasmaT3, free Lab Routine H/O partial thyroidectomy ([facility]) Expected: 07/31/2024 (Approximate), Expires: 07/31/2025[facility] Healthcare Work Phone: Comment on above:Expected: 07/31/2024 (Approximate), Expires: 07/31/2025Start: 07-31-2024 End: 84-61-6534Zhfafee encounter procedureNOMS ENDOCRINOLOGYComment on above: ArrivedStart: 05-07-2024 End: 26-57-5562Wakrfuh encounter procedureNOMS CATHY STATE ROUTEComment on above:ArrivedStart: 08-08-2023 End: 95-33-7269FqduhkneyChillicothe Hospitaltart: 26-17-9024Fnfq marrow samplingChillicothe Hospitaltart: 33-18-2527Oobiborwo for malignant neoplasm of breastMammogramSaint Luke's HospitalStart: 54-85-1072Ncjpegbrc for malignant neoplasm of colonSaint Luke's HospitalVmqyqmwzxkAoig-2-Bmxqahykstjis [Mass/volume] in Serum or [facility] HospitalBeta-2-Microglobulin [Mass/volume] in Serum or [facility] Gvan-9-Ksttvnolcaifd [Mass/volume] in Serum or [facility] HospitalBone marrow samplingOhiohealthCeruloplasmin [Mass/volume] in Serum or [facility] HospitalComprehensive metabolic 1999 panel - Serum or [facility] Comprehensive metabolic 1999 panel - Serum or [facility] HospitalCopper measurementOhiohealthDXA Skeletal system.axial Views for bone densityOhiohealthFREE K+L LT CHAINS, QN, SFREE K+L LT CHAINS, QN, S Lab Routine 02/06/2024 9:15 AM [facility] Work Phone: Patient EducationUnc Health Johnston Bone Marrow Aspiration or Biopsy Know your [facility] Work Phone: [facility] Immunizations Immunization DateImmunizationNotesCare MwnnhjqeFgtfhpyn38-17-1550ijelenpbn virus vaccine, unspecified formulationSjacqui Hair 344-3499Avcwml-ZvemkMartin Memorial Hospital 26-25-6455GOXN-CoV-2 (COVID-19) mRNAMUL.ORD!n32554Aaorvi Ross 227-1973Mtkfzd-EzftfMartin Memorial Hospital Comment on above:Result Comment: 2022-07-24: CPL8575-90-3219ythlqiiab virus vaccine, unspecified formulationSjacqui Hair 394-7788Uzkuaw-YmobzMartin Memorial Hospital 34-14-7039VZVN-CoV-2 (COVID-19) mRNA-1273 vaccineSjacqui Hair 331-6777Xvrufh-UorvxMartin Memorial Hospital Comment on above:Result Comment: 2022-07-24: ZIC4517-83-5516TVRF-RfN-9 (COVID- 19) mRNA-1273 vaccineSjacqui Hair 494-6839Xosmkv-HrwztMartin Memorial Hospital Comment on above:Result Comment: 2022-07-24: UMK2173-31-6614PRZJ-ZuY-5 (COVID- 19) mRNA-1273 vaccineSjacqui Hair 527-5785Zafgyd-RlavlMartin Memorial Hospital 91-26-8505NDWV-CoV-2 (COVID-19) mRNA-1273 vaccineSjacqui Hair 744-7401Qfixcb-HuvcsMartin Memorial Hospital 76-83-2903ejzoyrrwftbn polysaccharide vaccine, 23 valLuisa Hair 240-0809Aqrnqc-WuqwwMartin [facility] 86-12-9498phhsuwcaajlo conjugate vaccine, 13 valLuisa Hair 227-7118Eljsqn-ZesrnMartin Memorial Hospital 46-93-9022drwrlvmxt virus vaccine, unspecified formulationSjacqui Hair 721-8691Gczbsg-ZiqljMartin Memorial Hospital 96-29-2324gsfttrlfo virus vaccine, unspecified formulationSjacqui Hair 627-9178Dzyjcs-LzidhMartin Memorial Hospital Payers DatePayer CategoryPayerPolicy [id number] Health InsuranceUNITED WOR[employer] Member Subscriber Plan / Payer (Effective 2023-Present) Name: Sina Perez Relation to Subscriber: Self Name: Sina Perez Payer ID: Not on file Group ID: Not on file Type: Not on file Address: [address] [place] [id number]017Medicare [id number] 2.16.840.1.330391.3.57[id number] 2.16.840.1.009723.3.57[id number] 2.16.840.1.781837.3.57[id number] 2.16.840.1.243408.3.57[id number] 2.16.840.1.066676.3.57[id number] 2.16.840.1.653209.3.579.2.7[id number] 2.16.840.1.975897.3.57[id number] 2.16.840.1.892069.3.57[id number] 2.16.840.1.897536.3.579.[id number] 2.16.840.1.175477.3.57[id number] 2.16.840.1.865553.3.57[id number] 2.16.840.1.063602.3.57[id number] 2.16.840.1.051017.3.579.2.687996-98-3141Ptsagyo1504076 2.16.840.1.214146.3.57[id number] 2.16.840.1.884124.3.579.2.6[id number] 2.16.840.1.774353.3.579.[id number] 2.16.840.1.423674.3.579.[id number] 2.16.840.1.108535.3.579.2.7[id number] 2.16.840.1.732200.3.57[id number] 2.16.840.1.253836.3.57[id number] 2.16.840.1.107213.3.579.2.90836-74-1412Nkrxkcy54723913 2.16.840.1.108853.3.57[id number] 2.16.840.1.912183.3.579.2.0[id number] 2.16.840.1.580374.3.579.2.78204-46-7338Tdrdlbe95991959 2.16.840.1.258026.3.57[id number] 2..840.1.984715.3.579.2.[id number] 2..840.1.088657.3.57[id number] [id number]-j72p-682x-[id number] 2..840.1.648743.3.579.2.531 Social History DateTypeDetailFacilityTobacco smoking status NHISUnknown if ever smokedC[facility] Work Phone: Start: 87-24-2574Grt Assigned At [facility] Systemtart: 07-25-2023 End: 94-44-6060Zgmiaqk smoking status NHISNever smoked tobacco (finding) [facility] Hospitaltart: 09-19-2023 End: 58-32-6536Woq Assigned At [facility] Centertart: 51-27-1127Spwwypd smoking status NHISSmokes tobacco dailyNOMS HealthcareHistory of tobacco useCigarette SmokerNOMS HealthcareStart: 21-99-0282Lpaxppc use and exposureSmokeless tobacco non-userNOMS HealthcareStart: 09-19-2023 End: 18-14-4274Bcxujjpsu beverage intakeNot AskedNOMS HealthcareStart: 09-19-2023 End: 80-55-6590Necoejg of Social functionNOMS HealthcareStart: 14-99-5054Nia assigned at birthNot on fileNOIA HealthcareStart: 07-14-2024 End: 72-95-0710Vueynhdzy beverage intakeLifetime non-drinker (finding)[facility]OMS HealthcareSexFemale (finding)[facility] Clinical Notes 09-02-2018 to 12-29-2024 Note Date & WjtvDyyoIcjmeeox85-61-6929 NotePatient Education Cardiovascular Managing Your Hypertension Hypertension, also called high blood pressure, is when the force of the blood pressing against the kyle of the arteries is too strong. Arteries are blood vessels that carry blood from your heart throughout your body. Hypertension forces the heart to work harder to pump blood and may cause the arteries to become narrow or stiff. Understanding blood pressure readings A blood pressure reading includes a higher number over a lower number: ??? The first, or top, number is called the systolic pressure. It is a measure of the pressure in your arteries as your heart beats. ??? The second, or bottom number, is called the diastolic pressure. It is a measure of the pressurein your arteries as the heart relaxes. For most people, a normal blood pressure is below 120/80. Your personal target blood pressure may vary depending on your medical conditions, your age, and other factors. Blood pressure is classified into four stages. Based on your blood pressure reading, your health care provider may use the following stages to determine what type of treatment you need, if any. Systolic pressure and diastolic pressure are measured in a unit called millimeters of mercury (mmHg). Normal ??? Systolic pressure: below 120. ??? Diastolic pressure: below 80. Elevated ??? Systolic pressure: 120?129. ??? Diastolic pressure: below 80. Hypertension stage 1 ??? Systolic pressure: 130?139. ??? Diastolic pressure: 80?89. Hypertension stage 2 ??? Systolic pressure: 140 or above. ??? Diastolic pressure: 90 or above. How can this condition affect me? Managing your hypertension is very important. Over time, hypertension can damage the arteries and decrease blood flow to parts of the body, including the brain, heart, and kidneys. Having untreated or uncontrolled hypertension can lead to: ??? A heart attack. ??? A stroke. ??? A weakened blood vessel (aneurysm). ??? Heart failure. ??? Kidney damage. ??? Eye damage. ??? Memory and concentration problems. ??? Vascular dementia. What actions can I take to manage this condition? Hypertension can be managed by making lifestyle changes and possibly by taking medicines. Your health care provider will help you make a plan to bring your blood pressure within a normal range. You may be referred for counseling on a healthy diet and physical activity. Nutrition ??? Eat a diet that is high in fiber and potassium, and low in salt (sodium), added sugar, and fat.An example eating plan is called the DASH diet. DASH stands for Dietary Approaches to Stop Hypertension. To eat this way: ? Eat plenty of fresh fruits and vegetables. Try to fill one-half of your plate at each meal with fruits and vegetables. ? Eat whole grains, such as whole-wheat pasta, brown rice, or whole-grain bread. Fill about one-fourth of your plate with whole grains. ? Eat low-fat dairy products. ? Avoid fatty cuts of meat, processed or cured meats, and poultry with skin. Fill about one-fourth of your plate with lean proteins such as fish, chicken without skin, beans, eggs, and tofu. ? Avoid pre-made and processed foods. These tend to be higher in sodium, added sugar, and fat. ??? Reduce your daily sodium intake. Many people with hypertension should eat less than 1,500 mg ofsodium a day. Lifestyle ??? Work with your health care provider to maintain a healthy body weight or to lose weight. Ask what an ideal weight is for you. ??? Get at least 30 minutes of exercise that causes your heart to beat faster (aerobic exercise) most days of the week. Activities may include walking, swimming, or biking. ??? Include exercise to strengthen your muscles (resistance exercise), such as weight lifting, as part of your weekly exercise routine. Try to do these types of exercises for 30 minutes at least 3 days a week. ??? Do not use any products that contain nicotine or tobacco. These products include cigarettes, chewing tobacco, and vaping devices, such as e-cigarettes. If you need help quitting, ask your health care provider. ??? Control any long-term (chronic) conditions you have, such as high cholesterol or diabetes. ??? Identify your sources of stress and find ways to manage stress. This may include meditation, deep breathing, or making time for fun activities. Alcohol use ??? Do not drink alcohol if: ? Your health care provider tells you not to drink. ? You are , may be , or are planning to become . ??? If you drink alcohol: ? Limit how much you have to: ? 0?1 drink a day for women. ? 0?2 drinks a day for men. ? Know how much alcohol is in your drink. In the [place] one drink equals one 12 oz bottle of beer (355 mL), one 5 oz glass of wine (148 mL), or one 1? oz glass of hard liquor (44 mL). Medicines Your health care provider may prescribe medicine if lifestyle changes are not enough (more content not included)...[facility]03-[facility] History of Present illness Narrative* Felicia Bauer, VICE PRESIDENT [employer] - 05/07/2024 11:00 AM EST Images from the original note were not [...] in the morning upon waking and improves throughoutthe day. She states, once I'm up and [...] walker or quad cane when ambulating. Her balancehas remained generally unchanged and has not subjectively [...] to person, place, and time. Recent and remotememory are intact. Speech is clear and fluent [...] wrist extensors , wrist flexor , and diet counselor strength 5/5. LUE strength deltoid , biceps , triceps , wrist extensors , wrist flexor , and diet counselor strength 5/5. RLE strength iliopsoas, quadriceps, tibialis [...] reflex 0. LLE knee reflex 0. Coordination: Xkpgvi-kc-seac testing normal. Rapid alternating movements are normal. [...] cord signal and no other severe stenosis. BilateralL4 epidural injections on 09/26/22 were beneficial (> 50% pain reduction), though effects were short- lived, so the patient was referred to pain [...] Sjogren's syndrome, with unspecified organ involvement (HCC) ([facility]/HCC) The patient is established with rheumatology for unspecified Sjogren's disease (SICCA syndrome per some notes from PCP). PLAN: - Follow up closely with rheumatology for management Numbness of left hand The patient reports intermittent numbness in the 1st through 3rd digits of the left hand. This doesnot negatively impact her ability to perform activities, and she denies hand weakness or impaired hand function. Given the clinical description and lack of proximal LUE symptoms, I am most suspiciousfor mild left carpal tunnel syndrome. PLAN: - [...] as-needed basis at this point. She has beenencouraged to notify our office should she develop any new or worsening neurologic symptoms or concerns. Would be happy to see her back and further evaluate. Diagnosis and treatment options discussed in detail. All questions answered. The patient verbalizesunderstanding and is agreeable to the plan. Discussion in layman's terms. Follow up in the office as needed. Felicia Bauer NP [facility] documented in this encounterSaint Luke's HospitalSvzllazeet55-42-4226 History of Present illness Narrative* Kamala Pierce MD - 07/31/2024 10:10 AM EDT Sina Perez is a 74 y.o. female [...] - PTH, intact; Future H/O partial thyroidectomy ([facility]) - T3, free; Future - T4, free; [...] 2017 and partial thyroidectomy. documented in this encounterNOIA HealthcareEvaluation + Plan note Future Appointments Appointment Date:07/07/2024 09:15:00 AM Scheduled Provider:Jean Hair MD Location:[facility] Appointment Type: Open Appointment Date:12/25/2024 09:30:00 AM Scheduled Provider: Location:[facility] Appointment Type:FM Medicare Wellness Subsequent Diagnostic Tests Pending * HCV Antibody RFX to Quant PCR 12/31/23 [facility] Evaluation noteNo assessment information available [facility] Work Phone: Evaluation note* Diagnosis Onset Date Resolution Status Peripheral neuropathy acuteHistory of parathyroidectomychronicMGUS (monoclonal gammopathy of unknown significance)chronicOsteoporosischronicSjogrens syndromechronic [facility] Work Phone: Evaluation note* Diagnosis Onset Date Resolution Status Peripheral neuropathy acuteHistory of parathyroidectomychronicMGUS (monoclonal gammopathy of unknown significance)chronicOsteoporosischronicSjogrens syndromechronicMGUS (monoclonal gammopathy of unknown significance)chronicPeripheral neuropathyacuteHistory of parathyroidectomychronicMGUS (monoclonal gammopathy of unknown significance) chronicOsteoporosischronicSjogrens syndromechronic [facility] Work Phone: Evaluation note* Diagnosis Lumbar radiculopathy- Primary Thoracic or lumbosacral neuritis or radiculitis, unspecified Degeneration of intervertebral disc of lumbar region, unspecified whether pain present Gait instability Abnormality of gait Sjogren's syndrome, with unspecified organ involvement (HCC) ([facility]) Numbness of left hand documented in this encounter [facility] HealthcareEvaluation note* Diagnosis History of parathyroid surgery- Primary H/O partial thyroidectomy ([facility]) Vitamin D deficiency documented in this encounter [facility] HealthcareEvaluation note* Diagnosis Onset Date Resolution Status Admit Date Peripheral neuropathy acuteJune 2024 2:16pmHistory of parathyroidectomychronicJune 2024 2:16pmMGUS (monoclonal gammopathy of unknown significance)chronicJune 2024 2:16pmOsteoporosischronicJune 2024 2:16pmSjogrens syndromechronicJune 2024 2:16pm [facility] Work Phone: Hospital course Narrative No data available for this section [facility] Hospital Discharge instructions No data available for this section [facility] Hospital Discharge instructionsAmbulatory Orders* Oncology Histology Time Frame: 1 Day, Location: Determined By Patient [facility] Work Phone: Progress note Author Tatiana Douglas [facility] July 25, 2023 2:25pmNote Date/TimeMay 2023 10:06[facility] [place] [address] Cancer Center Note Signed Patient: Sina Perez MR#: [id number] : 1950 Acct:[id number] Age/Sex: 73 / F Type: DEP AMB Date of Service: 07/25/23 Copies to: Ger Kennedy MD~ Assessment & Plan A/P (1) MGUS (monoclonal gammopathy of unknown significance): Plan: This is a now 73-year-old female with diagnosis of Sjogren syndrome in September 2014who was found to have a small monoclonal spike that was IgG kappa restricted. She has not had any evidence of end organdisease suggestive of myeloma to include renal dysfunction, anemia, or known bony disease over the p ast 6 years. Skeletal survey in 2017 previously [...] for M-spike of 0.7 g/dl. She has nothad any urine protein electrophoresis, immunofixation, quantitative immunoglobulins or kappa lambdalight chain analysis since 2018. Iwchalino order these [...] to pain injections and spinal ablation at [facility]. M spikehas now trended up to 0.1. Normal kappa/lambda light chain ratio but increased lambda light chains suggesting progression of her disease. This is difficult tointerpret in the setting of chronic inflammatory disease such as Sjogren's syndrome. She has a normal hemoglobin, calcium, and creatinine, however due to progression of neuropathy we willrepeat her bone marrow aspiration and biopsy and compare this to her last study from 8 years ago. [facility] also send whole-body F-[address] scan to complete staging and follow-up results in 3 weeks. Addbeta-2 microglobulin, B12, folate, copper, and ceruloplasmin to evaluate other possible etiologies of her peripheral neuropathy symptoms. Patient expressed understanding of this high complexity 45-minute visit to review outside studies,recent neuropathy symptoms which are new from prior visits, andcoordination of bone marrow biopsy and PET/CT. (2) Peripheral neuropathy: Plan: We are requesting outside records from [facility] for her spinal procedures for peripheral neuropathy and any imaging that they have performed. Proceed with bone marrow biopsy for workup of possible progression of MGUS to myeloma. (3) Osteoporosis: Plan: Due to hypercalcemia the patient [facility]aled lumbar spine T score 1.1, normal range and right femoral neck T score -2.8 consistent withosteoporosis. This should be repeatedevery 2 years, and she remains on Boniva therapy without calcium and vitamin D due to hypercalcemia. No acute bony abnormalities are punched out lytic lesions on bone survey 01/19/2021 at [facility]. -- Patient was told by [...] Lee's thyroiditis with Sjogren's syndromeand was referred toDr. Pierce for hypercalcemia. She previously had elevated calcium despite stopping calcium and vitamin D, chlorthalidone, and addition of Lasix. She had mild elevation of parathyroid hormone, intactand normal PTHrp assessment. Given her father's history of pancreas cancer and a niece with thyroidcancer, I recommended referral to genetics ( sees clinic here at [facility] once monthly) for evaluation of multiple endocrine [...] with labs prior. Please request records from [facility] from February 2023. CHEMO PLAN No Active Chemotherapy History of Present Illness HPI 07/25/2023: Sina is here for 2-year follow-up of MGUS. When I last saw her in clinic, I referred back to primary care and nephrology for following her symptoms, however she was asked to return for review of her laboratories. Sincebety was last seen she underwent 3 nerve block procedures at [facility] with neurology (Dr. Cox), then was [...] she should likely take a 1 year hol iday from this due to prolonged use. --Most recent labs reviewed from 07/18/2023 show normal hemoglobin of 13.7, normal creatinine 0.85, normal calcium 9.7. She has had an increase of her prior M spike (previously 0.5 in 2018, 0.9 on labs 10/25/2022, currently 1.0). Serum immunofixation shows IgG lambda monoclonal protein. [place]/lambda light chain ratio is normal however there [...] persistent joint stiffness on Plaquenil. Labs from [facility] reviewed from 07/07/2021 showing normal [...] concerning findings on labs or symptoms or p rogression of myeloma. Patient expressed understanding over this [...] of routine labs for monoclonal gammopathy of undeterminedsignificance. She follows with Dr. Lopes without recent [...] She also had a thyroid ultrasound at [place] which is not available for my review but patient noted that there was a new nodule. I am discussing with Dr. Pierce possible referral to ENT for surgicalevaluation of hypercalcemia as well as genetics referral [...] visit for MGUS and go over labs [facility] Medical History Medical History Fibromyalgia Multinodular [...] Stool, No Bloating, No Bloody Stool, No Constipation,No Diarrhea, No Dysphagia, No Nausea, No Vomiting Cardiovascular: No Chest Pain, No Edema, No Palpitations Genitourinary: No Dysuria, No Frequency, No Hematuria, No Incontinence Musculoskeletal: No significant thoracic or lumbar Back Pain, No Chest Wall Tenderness, No Joint Pain (left shoulder and elbow, bilateral knees improved, known Sjogren's syndrome), No Joint Swelling,No Muscle Stiffness. HEENT: No Blurred Vision, No [...] AST 23 ALT 15 Alkaline Phosphatase 84 M-Daivd 0.3 H 0.5 H 1.0 H Total Protein 7.1 Albumin 4.4 Globulin 2.7 [facility] labs reviewed: White blood cell count 5500, hemoglobin 13.8, platelet count 206,000, total protein 7.4, total bilirubin 0.7, sodium 140, potassium 3.7, BUN 22, creatinine 0.84, EGFR greater than 60, ALT 28, AST 26,alkaline phosphatase 103, albumin 3.7 Beta-2 microglobulin 2.2 [...] <Electronically signed by MD Tatiana Douglas> 07/25/23 [id number] [facility] Work Phone: Progress note No data available for this section [facility] Reason for referral (narrative)No reason for referral information availableLima City Hospital Work Phone: Summary Purpose Family History No Family History Records Found Relationship Condition Age at Onset Recorded Date/T yenni father Malignant neoplasm of pancreas Unknown Advance Directives No Advanced Directives Records Found Advance Directive Response Recorded Date/ Time Advance Directives No December 15, 2016 9:59am Chief Complaint and Reason for Visit Chief Complaint MGUS Follow UpReason for VisitPeripheral neuropathy History of parathyroidectomy MGUS (monoclonal gammopathy of unknown significance) Osteoporosis Sjogrens syndrome Chief Complaint MGUS Follow Up D47.2Reason for VisitPeripheral neuropathy History of parathyroidectomy MGUS (monoclonal gammopathy of unknown significance) Osteoporosis Sjogrens syndrome Chief Complaint Follow Up D47.2 MGUS Follow UpReason for VisitPeripheral neuropathy History of parathyroidectomy MGUS (monoclonal gammopathy [...] section and content) DATE CREATED AUTHOR 08/13/2021 [facility] DATE CREATED AUTHOR AUTHOR'S ORGANIZ ATION 07/05/2022 [facility] DATE CREATED AUTHOR AUTHOR'S ORGANIZ ATION 02/02/2023 [facility] DATE CREATED AUTHOR AUTHOR'S ORGANIZ ATION 01/01/2024 [facility] DATE CREATED AUTHOR AUTHOR'S ORGANIZ ATION 01/02/2024 [facility] DATE CREATED AUTHOR AUTHOR'S ORGANIZ ATION 01/03/2024 [facility] DATE CREATED AUTHOR AUTHOR'S ORGANIZ ATION 08/02/2024 [facility] DATE CREATED AUTHOR AUTHOR'S ORGANIZ ATION 08/30/2024 [facility] DATE CREATED AUTHOR AUTHOR'S ORGANIZ ATION 12/30/2024 [facility] DATE CREATED AUTHOR AUTHOR'S ORGANIZ ATION 01/02/2025 [facility] DATE CREATED AUTHOR AUTHOR'S ORGANIZ ATION 01/08/2025 [facility] Goals (unrecognized section and content) Goals may [...] S tart: July 25, 2023 End: July 24Tanner Garcia ProviderActiveStart: July 25, 2023 End: July 25, 2023 Team Status: Inactive Member Role Status Dates Jean Hair MD Primary Care Provider Active Start: August 08, 2023 End: August 07Tanner Garcia ProviderActiveStart: August 08, 2023 End: August 08, 2023 Team Status: Active Member Role Status Dates Tatiana Douglas MD Attending Provider Active Start: August 29, 2023 [facility] Care ProviderActiveStart: August 29, 2023 Team Status: Inactive Member Role Status Dates Jean Hair MD Primary Care Provider Active Start: August 29, 2023 End: August 28Tanner Garcia ProviderActiveStart: August 29, 2023 End: August 29, 2023 Team Status: Active Member Role Status Dates Tatiana Douglas MD Attending Provider Active Start: July 25, 2023 [facility] ProviderActiveStart: July 25, 2023 Team MemberRelationshipSpecialtyStart DateEnd Date Jean Hair MD PCP - GeneralFamily Medicine09/19/23Team MemberRelationshipSpecialtyStart DateEnd Date Jean Hair MD PCP - GeneralFamily Medicine09/19/23Team MemberRelationshipSpecialtyStart DateEnd Date Jean Hair MD [address], [place] [id number] PCP - GeneralFamily Medicine05/01/24 Felicia Bauer NP [address] [phone] Nurse PractitionerNeurology05/07/24Team MemberRelationshipSpecialtyStart DateEnd Date Jean Hair MD [address] [place], [place] [id number] PCP - GeneralFamily Medicine05/01/24 Felicia Bauer, DAVI [address] [phone] Nurse PractitionerNeurology05/07/24 Adithya Thomas DO [address] [phone] Referring PhysicianNeurology05/07/24Team MemberRelationshipSpecialtyStart DateEnd Date Jean Hair MD [address], [place] [id number] PCP - GeneralFamily Medicine05/01/24 Felicia Bauer NP [address] [phone] Nurse PractitionerNeurology05/07/24 Adithya Thomas DO [address] [place], [place] [phone] Referring PhysicianNeurology05/07/24Team MemberRelationshipSpecialtyStart DateEnd Jean Hair MD [address] [place] [id number] [facility] - [facility]/01/24 Felicia Bauer NP [address] [phone] Nurse PractitionerNeurology05/07/24 Adithya Thomas DO [address] [phone] Referring PhysicianNeurology05/07/24 Team Status: Inactive Member Role Status Dates Jean Hair MD Primary Care Provider Active Start: August 28, 2024 End: August 28Tanner Garcia ProviderActiveStart: August 28, 2024 End: August 28, 2024 Team Status: Active Member Role Status Dates Tatiana Douglas MD Attending Provider Active Start: August 28, 2024 [facility] ProviderActiveStart: August 28, 2024 Reason for Visit (unrecogniz ed section and content) ReasonCommentsBack PainNumbnessReasonCommentsHypercalcemiaSpecialtyDiagnoses / ProceduresReferred By ContactReferred To ContactEndocrinology Diagnoses Hypoparathyroidism, unspecified Other obesity due to excess calories Procedures NE OFFICE/OUTPATIENT NEW LOW MDM 30 MINUTES Jean Hair MD [address] [place] [address] Phone: tel: [place] [address] [place] [address] [address] [place] [address] Phone: tel: fax: Referral IDStatusReasonStclaudia DateExpiration DateVisits RequestedVisits [id number]/[id number] FOR RECORDS PERTAINING TO PATIENTS WHO ARE [...] BE BASED ON THE PRIMARY CLINICAL RECORDS. [employer] [facility]. provides no warranty or guarantee of the accuracy or completeness of information in this document.
[2025-01-28 10:28] LABS: Glucose Urine UA NEGATIVE (NEGATIVE)
[2025-01-28 10:44] LABS: Cast Seen? NONE SEEN #/LPF (NONE SEEN); Crystals Seen? None Seen #/HPF (None Seen)
[2025-01-28 10:49] LABS: Hematocrit 40.8 % (36.0-48.0); Hemoglobin 13.3 g/dL (12.0-16.0); Immature Granulocytes Abs Auto 0.01 10^3/uL (0.00-0.03); Immature Granulocytes Pct Auto 0.2 % (0.0-0.5); Lymphocytes Absolute Auto 0.8 10^3/uL (1.2-3.8); Mean Corpuscular HGB Conc 32.6 g/dL (29.9-35.2); Mean Corpuscular Hemoglobin 31.4 pg (26.7-34.0); Mean Corpuscular Volume 96.5 fL (81.0-99.0); Platelet Count 196 10^3/uL (150-450); Red Blood Count 4.23 10^6/uL (4.20-5.40); White Blood Count 4.4 10^3/uL (4.0-11.0)
[2025-01-28 11:07] LABS: Alanine Aminotransferase 36 U/L (14-59); Albumin Globulin Ratio 1.1; Albumin Level 4.0 g/dL (3.4-5.0); Alkaline Phosphatase 95 U/L (46-116); Anion Gap 10.8; Aspartate Amino Transferase 33 U/L (15-37); Blood Urea Nitrogen 27.0 mg/dL (7.0-18.0); Calcium 9.5 mg/dL (8.5-10.1); Carbon Dioxide 29.3 mmol/L (21.0-32.0); Chloride 103 mmol/L (98-107); Estimated GFR (African America >60 (>=60 mL/min/1.73m^2); Estimated GFR (Non-African Ame >60 (>=60 mL/min/1.73m^2); Globulin 3.6 g/dL; Glucose 86 mg/dL (74-106); Potassium 4.1 mmol/L (3.5-5.1); Sodium 139 mmol/L (136-145); Total Protein 7.6 g/dL (6.4-8.2)
[2025-01-30 04:07] LABS: Anti-CCP Ab, IgG/IgA 8 units (0-19)
== END 2025-01-28 09:27 | disposition home or self-care (01) ==
LOC: LAB 09:29
PROVIDERS: PCP Nurse Practitioner; Visit Provider Nurse Practitioner Family
DX: M35.00 Sjogren syndrome, unspecified (principal); Z79.899 Other long term (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 therapy; R76.0 Raised antibody titer
CPT/HCPCS: 36415; 80053; 81001; 85025; 85652; 86038; 86140; 86160; 86162; 86200; 86225; 86235; 86431

== ENCOUNTER 2025-02-16 12:16 | Outpatient (OUT) | payer MEDICARE, OTHER, SELFPAY ==
[2025-02-16 12:35] LABS: Hematocrit 41.7 % (36.0-48.0); Hemoglobin 13.3 g/dL (12.0-16.0); Immature Granulocytes Abs Auto 0.01 10^3/uL (0.00-0.03); Immature Granulocytes Pct Auto 0.1 % (0.0-0.5); Lymphocytes Absolute Auto 1.0 10^3/uL (1.2-3.8); Mean Corpuscular HGB Conc 31.9 g/dL (29.9-35.2); Mean Corpuscular Hemoglobin 30.6 pg (26.7-34.0); Mean Corpuscular Volume 96.1 fL (81.0-99.0); Platelet Count 203 10^3/uL (150-450); Red Blood Count 4.34 10^6/uL (4.20-5.40); White Blood Count 6.9 10^3/uL (4.0-11.0)
[2025-02-16 12:54] LABS: Alanine Aminotransferase 16 U/L (14-59); Albumin Globulin Ratio 1.1; Albumin Level 4.1 g/dL (3.4-5.0); Alkaline Phosphatase 94 U/L (46-116); Anion Gap 12.7; Aspartate Amino Transferase 45 U/L (15-37); Blood Urea Nitrogen 22.0 mg/dL (7.0-18.0); Calcium 9.2 mg/dL (8.5-10.1); Carbon Dioxide 27.2 mmol/L (21.0-32.0); Chloride 102 mmol/L (98-107); Estimated GFR (African America >60 (>=60 mL/min/1.73m^2); Estimated GFR (Non-African Ame 56 (>=60 mL/min/1.73m^2); Globulin 3.6 g/dL; Glucose 88 mg/dL (74-106); Potassium 3.9 mmol/L (3.5-5.1); Sodium 138 mmol/L (136-145); Total Protein 7.7 g/dL (6.4-8.2)
[2025-02-17 16:09] LABS: Albumin 4.0 g/dL (2.9-4.4); Alpha-1-Globulin 0.3 g/dL (0.0-0.4); Alpha-2-Globulin 0.8 g/dL (0.4-1.0); Free Kappa Lt Chains,S 23.4 mg/L (3.3-19.4); Free Lambda Lt Chains,S 86.4 mg/L (5.7-26.3); Gamma Globulin 1.2 g/dL (0.4-1.8); Immunoglobulin A, Qn, Serum 76 mg/dL (64-422); Kappa/Lambda Ratio,S 0.27 (0.26-1.65)
== END 2025-02-16 12:17 | disposition home or self-care (01) ==
LOC: LAB 12:17
PROVIDERS: PCP Nurse Practitioner; Visit Provider Internal Medicine Hematology & Oncology
DX: D47.2 Monoclonal gammopathy (principal)
CPT/HCPCS: 36415; 80053; 82784; 83521; 84155; 84165; 85025; 86334